=== PATIENT | male | born 1955 | race Caucasian/White ===

== ENCOUNTER 2017-04-17 02:37 | Emergency (ER) | payer OTHER, MEDICARE, SELFPAY ==
[2017-04-17 02:38] VITALS: BP 170/91; PULSE 75; RESP 16; TEMP 36.7; O2SAT 96; BMI 34.2
--- NOTE | 2017-04-17 03:04 | ED.VISSUMM ---
- ER Visit Summary Date of Service: 04/17/17 Chief Complaint: [] Acute on chronic back pain History of Present Illness: The patient is a 61 M [] complaining of acute on chronic back pain. Patient reports a history of sciatica for which she is seen at pain management and receives injections. He reports intermittent worsening pain over the last 2-3 weeks. Reports going to a local [employer] and was pushing around a heavy cart of supplies which aggravated his low back which now has pain radiating down to the left lower extremity. He reports taking Mobic and Percocet at home without significant relief. Denies bowel or bladder dysfunction or saddle anesthesia. Physical Examination: [] Mild tenderness palpation in the left lumbosacral paraspinal area. Patient able to ambulate with mild discomfort. Test Results: [] None. Emergency Department Course and Treatment: [] Patient provided 8 mg IM morphine for analgesia. He was encouraged to follow-up with his pain management physician. Treatment Plan: [] Follow up with pain management. Disposition: [] Discharge, stable. Impression: [] Acute on chronic back pain This note was generated with [employer] dictation software. It may contain incorrect words, spelling, and punctuation that were not noted in review of the chart prior to signing ED Disposition - Plan for ED Patient: Chief Complaint: Back Referrals: Dominick Cueto III, MD [Primary Care Provider] -
--- NOTE | 2017-04-17 03:06 | ED.DEP ---
ED Disposition - Plan for ED Patient: Disposition: Home or Assisted Living Chief Complaint: Back Instructions: ED Sciatica Referrals: Dominick Cueto III, MD [Primary Care Provider] -
== END 2017-04-17 03:27 | disposition home or self-care (01) ==
PROVIDERS: Emergency Provider Emergency Medicine; Family Provider Family Medicine; PCP Family Medicine
DX: M54.9 Dorsalgia, unspecified (principal); G89.29 Other chronic pain; I25.10 Atherosclerotic heart disease of native coronary artery without angina pectoris; Z95.1 Presence of aortocoronary bypass graft
CPT/HCPCS: 96372; 99282

== ENCOUNTER → 2017-05-06 16:13 | Outpatient (CLI) | payer OTHER, MEDICARE, SELFPAY ==
--- NOTE | 2017-05-06 16:44 | MRI_ITS ---
STUDY: MRI LUMBAR SPINE WITHOUT CONTRAST REASON FOR EXAM: Male, 61 years old. Back and bilateral leg pain. TECHNIQUE: Standardized fat and water weighted pulse sequences were obtained in the sagittal and axial planes. COMPARISON: Radiographs lumbar spine dated March 03, 2017. FINDINGS: T12-L1: There is moderate compression of the superior endplate of L1. Estimated amount compression is at least 60% of expected height of this vertebral body. This appears old. There is increased height of the disc at this level related to the compression fracture. No foramina are patent. There is no significant central acquired canal stenosis. Normal lumbar lordosis. There is no substantial scoliosis. Normal conus medullaris that terminates at the T12-L1 level. L1-2: There is mild annular disk bulge and osteophyte complex. There is mild degenerative arthropathy of the facet joints. Bilateral neuroforamina are narrowed without MR evidence for nerve impingement. There is no significant central canal stenosis. L2-3: There is an annular disc bulge and osteophyte complex. There is moderate degenerative arthropathy of facet joints. There is severe right-sided neural foraminal narrowing with apparent impingement of the right L2 nerve root at the neural foramen. Left neural foramen is patent. L3-4: There is an annular disc bulge and osteophyte complex. There is moderate degenerative arthropathy of facet joints. There is bilateral neural foraminal narrowing, left greater than right with potential impingement of the left L3 nerve root at the neural foramen. L4-5: There is an annular disc bulge with broad central disc protrusion. There are severe degenerative arthropathy of facet joints. There is moderate acquired canal stenosis. Bilateral neural foramina are bilaterally narrowed, left greater than right with potential impingement of the left L4 nerve root at the neural foramen. L5-S1: There is a mild disc bulge and osteophyte complex. There is moderate degenerative arthropathy of facet joints. Neural foramina are narrowed without evidence for nerve impingement. There is no significant central acquired canal stenosis. Normal visualized sacral ala. There are degenerative changes at the sacroiliac joints. Normal visualized paraspinous soft tissue structures. MRI/Spine Lumbar (Routine) IMPRESSION: 1. Moderate old compression fracture of L1. 2. Moderately severe multilevel degenerative disc disease and degenerative arthropathy lumbar spine with acquired canal stenosis, neural foraminal narrowing and potential nerve impingement, as described. 3. 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 Electronically Signed: Susy De León MD at 0:07 EST , Service support ,
== END ==
PROVIDERS: Family Provider Family Medicine; PCP Family Medicine; Visit Provider Anesthesiology Pain Medicine
DX: M54.9 Dorsalgia, unspecified (principal); M79.606 Pain in leg, unspecified
CPT/HCPCS: 72148

== ENCOUNTER → 2017-05-17 06:15 | Outpatient (CLI) | payer OTHER, MEDICARE, SELFPAY ==
[2017-05-17 08:29] LABS: Absolute Lymphocyte Count 2.91 X10^3/ul (0.83-4.51); Absolute Neutrophil Count 5.9 X10^3/uL (2.0-7.7); Basophil# 0.02 X10^3/uL; Basophil% 0.2 % (0-1); Eosinophil# 0.08 X10^3/uL; Eosinophils% 0.8 % (0-5); Hematocrit 40.3 % (40-54); Hemoglobin 13.4 g/dl (13.0-16.5); Lymphocyte # 2.91 X10^3/ul (4.0); Lymphocyte % 28.3 % (19-41); Mean Corp Hgb Conc 33.3 g/gl (32-36); Mean Corpuscular Hgb 33.5 pg (27.0-32.0); Mean Corpuscular Volume 100.8 fL (80-94); Mean Platelet Vol. 8.5 fl (6.2-12.0); Monocyte# 1.27 X10^3/uL; Monocyte% 12.4 % (0-10); Neutrophil # 5.94 X10^3/uL (2.7-7.7); Neutrophil % 57.7 % (47-70); Platelet Count 215 K/mm3 (150-450); RBC Distribution Width CV 14.3 % (11.6-14.6); RBC Distribution Width SD 52.3 fl (35.1-43.9); White Blood Count 10.3 K/mm3 (4.4-11.0)
[2017-05-17 08:30] LABS: POSITIVE COUNT NO; POSITIVE DIFFERENTIAL NO; POSITIVE MORPHOLOGY NO
[2017-05-17 09:02] LABS: ALB/GLOB Ratio 0.8 RATIO (0.9-2.4); AST(SGOT) 17 U/L (15-37); Alanine Aminotransfer ALT/SGPT 33 U/L (16-61); Albumin, Serum 3.2 g/dL (3.2-5.0); Alkaline Phosphatase 132 U/L (45-117); Anion Gap 7 (5-15); BUN 16 mg/dL (7-18); BUN/Creat Ratio 26.5 RATIO (10-20); Bilirubin, Direct 0.07 mg/dL (0.00-0.30); Calcium,Total 8.9 mg/dL (8.5-10.1); Chloride 105 mmol/L (98-107); Cholesterol 228 mg/dL (200); EST Glomerular Filtration Rate 145 mL/min (>60); Est Glom Filt Rate - Afr Amer 175 mL/min (>60); Globulin 3.9 g/dL (2.2-4.2); Glucose 97 mg/dL (74-106); High Density Lipoprotein 44 mg/dL; Potassium 4.2 mmol/L (3.5-5.1); Protein, Total 7.1 g/dL (6.4-8.2); Sodium Level 140 mmol/L (136-145); Triglycerides 223 mg/dL; Very Low Density Lipoprotein 45 mg/dL (5-40)
== END ==
PROVIDERS: Physician Assistant Medical; Family Provider Family Medicine; PCP Family Medicine; Visit Provider Internal Medicine Rheumatology
DX: M06.00 Rheumatoid arthritis without rheumatoid factor, unspecified site (principal); M25.511 Pain in right shoulder; M17.0 Bilateral primary osteoarthritis of knee; E78.5 Hyperlipidemia, unspecified; Q66.7 Congenital pes cavus; K21.0 Gastro-esophageal reflux disease with esophagitis; M47.892 Other spondylosis, cervical region; M47.897 Other spondylosis, lumbosacral region; I70.90 Unspecified atherosclerosis; F32.89 Other specified depressive episodes; Z79.899 Other long term (current) drug therapy
CPT/HCPCS: 36415; 80053; 80061; 82248; 85025

== ENCOUNTER 2017-07-20 09:00 | Outpatient (RCR) | payer OTHER, MEDICARE, SELFPAY ==
--- NOTE | 2017-07-05 08:46 | HP.PTEVAL_ITS ---
Patient's Visit Information JOSE MUJICA is a 62 year old M referred to Physical Therapy by [facility] with a diagnosis of Back and Leg pain. Date of Evaluation: 07/05/17 Physical Therapist: Olga Lidia Merida - Visit Plan Frequency: 2x /Week Duration: 4 Weeks Plan: 2X/ week for 4 weeks for AT for core stability, LE strengthening, gait training, functional mobility with HEP. (Pt will be having surgery July 23, 2017 ) - Subjective Subjective: Pt reports that he is having back pain. He is having surgery July 23 so he is not sure why the Dr sent him up here. He used to get injectins from [employer] and for awhile they have worked (8 years) and in the last year or so the injections have not been lasting as long and now not at all. He is trying to get out every day and do something to try and stay moving. He is in a lot of pain. He had an MRI and x-ray and the surgeon is going to fuse 2 vertebrea together (Dr. Cesar De León). He feels that he has leg weakness. He has been using a cane off and on the last 4-5 months. He has gone down without the can a few times due to pain. He can't sleep cause of the back pain ( maybe 4=5 hours a night). He has a stationary bike at home that he uses at home but doesnt get carried away with it. - Pain back pain Pain Intensity (Out of 10): 8 L Leg pain Pain Intensity (Out of 10): 8 - Objective Trunk AROM: flexion 75%, ext 25%, SB 50% B. Gait: decrease stance time on the L LE, WBOS. Able to heel and toe raise using UE support. LE MMT: hip flex R 4/5, L 4-/5, knee ext L 3-/5 and R 4/5, knee flex R 4/5 and L 3+/5, hip abd L 4-/5 and R 4/5, Bridge 50% normal ROM,. +SLR on the L, + SLUMP test on the L - Goals Goal 1:: I HEP/water rountine Goal Time Frame: 4-6 Weeks Goal 2:: Decrease back pain to 6/10 with ADL's Goal Time Frame: 4-6 Weeks Goal 3:: Sit with upright posture during treatment sessions Goal Time Frame: 4-6 Weeks - Rehabilitation Potential Rehabilitation Potential: Good - Anticipated Interventions Patient/Client Instruction: Educate patient on: Plan of Care For the Purpose of:: To decrease pain, To increase ROM, To improve nutrient delivery to tissue, To improve muscle performance and motor function, To improve ability to perform ADL's, To increase tolerance to activity/condition/ position Therapeutic Exercise to Include: Strength training, Postural training, Flexibilty training, Gait and locomotor training, In an aquatic setting, Active ROM, Dynamic Lumbar Stabilization, Scapular Strength/Stabilization For the Purpose of:: To decrease pain, To decrease swelling/inflammation, To increase ROM, To improve nutrient delivery to tissue, To improve muscle performance and motor function, To improve ability to perform ADL's, To increase tolerance to activity/condition/position, To improve performance and independence with ADL's Thank you for the opportunity to evaluate your patient. For Medicare and Medicare HMO plans, please review the plan of care and approve it. It will need to be FAXED BACK to us at [phone] for Medicare purposes. Please let me know if there are questions or concerns regarding this plan of care. Physician Signature: Date:
--- NOTE | 2017-07-21 15:34 | HP.PTDCNRP_ITS ---
HP - Discharge Summary (1) - Patient Information JOSE MUJICA was seen in my office for initial evaluation on 07/05/17. The following Plan of Care was established for this patient: Initial Frequency: 2x /Week Initial Duration: 4 Weeks - Anticipated Interventions Patient/Client Instruction: Educate patient on: Plan of Care For the Purpose of:: To decrease pain, To increase ROM, To improve nutrient delivery to tissue, To improve muscle performance and motor function, To improve ability to perform ADL's, To increase tolerance to activity/condition/ position Therapeutic Exercise to Include: Strength training, Postural training, Flexibilty training, Gait and locomotor training, In an aquatic setting, Active ROM, Dynamic Lumbar Stabilization, Scapular Strength/Stabilization For the Purpose of:: To decrease pain, To decrease swelling/inflammation, To increase ROM, To improve nutrient delivery to tissue, To improve muscle performance and motor function, To improve ability to perform ADL's, To increase tolerance to activity/condition/position, To improve performance and independence with ADL's This patient was last seen in our office . Pertinent comments regarding their Physical therapy will appear below: At this point I will be discontinuing this patient from physical therapy. I would be happy to see this patient again in the future if found appropriate by the physician. Thank you! Olga Lidia Merida
== END 2017-07-20 19:00 | disposition home or self-care (01) ==
LOC: PT 09:00
PROVIDERS: Family Provider Family Medicine; PCP Family Medicine; Visit Provider Anesthesiology Pain Medicine
DX: M54.9 Dorsalgia, unspecified (principal); M79.606 Pain in leg, unspecified
CPT/HCPCS: 97110; 97113

== ENCOUNTER → 2017-08-17 16:23 | Outpatient (CLI) | payer OTHER, MEDICARE, SELFPAY ==
[2017-08-17 17:15] LABS: Absolute Lymphocyte Count 4.52 X10^3/ul (0.83-4.51); Absolute Neutrophil Count 7.4 X10^3/uL (2.0-7.7); Basophil# 0.03 X10^3/uL; Basophil% 0.2 % (0-1); Eosinophil# 0.15 X10^3/uL; Eosinophils% 1.1 % (0-5); Hematocrit 37.7 % (40-54); Hemoglobin 12.6 g/dl (13.0-16.5); Lymphocyte # 4.52 X10^3/ul (4.0); Lymphocyte % 33.1 % (19-41); Mean Corp Hgb Conc 33.4 g/gl (32-36); Mean Corpuscular Hgb 34.1 pg (27.0-32.0); Mean Corpuscular Volume 102.2 fL (80-94); Mean Platelet Vol. 8.5 fl (6.2-12.0); Monocyte# 1.48 X10^3/uL; Monocyte% 10.8 % (0-10); Neutrophil # 7.39 X10^3/uL (2.7-7.7); Neutrophil % 54.2 % (47-70); Platelet Count 244 K/mm3 (150-450); RBC Distribution Width CV 13.8 % (11.6-14.6); RBC Distribution Width SD 50.2 fl (35.1-43.9); Red Blood Count 3.69 M/mm3 (4.6-6.2); White Blood Count 13.7 K/mm3 (4.4-11.0)
[2017-08-17 17:27] LABS: POSITIVE COUNT NO; POSITIVE DIFFERENTIAL NO; POSITIVE MORPHOLOGY NO
[2017-08-17 17:45] LABS: AST(SGOT) 21 U/L (15-37); Alanine Aminotransfer ALT/SGPT 37 U/L (16-61); Albumin, Serum 3.6 g/dL (3.2-5.0); Alkaline Phosphatase 150 U/L (45-117); Anion Gap 11 (5-15); BUN 13 mg/dL (7-18); BUN/Creat Ratio 13.5 RATIO (10-20); Calcium,Total 9.3 mg/dL (8.5-10.1); Chloride 105 mmol/L (98-107); Creatinine, Serum 0.96 mg/dL (0.70-1.30); EST Glomerular Filtration Rate 85 mL/min (>60); Est Glom Filt Rate - Afr Amer 102 mL/min (>60); Globulin 3.6 g/dL (2.2-4.2); Glucose 116 mg/dL (74-106); Potassium 3.4 mmol/L (3.5-5.1); Protein, Total 7.2 g/dL (6.4-8.2); Sodium Level 143 mmol/L (136-145)
== END ==
PROVIDERS: Family Provider Family Medicine; PCP Family Medicine; Visit Provider Internal Medicine Rheumatology
DX: M06.00 Rheumatoid arthritis without rheumatoid factor, unspecified site (principal); M25.511 Pain in right shoulder; M17.0 Bilateral primary osteoarthritis of knee; Q66.7 Congenital pes cavus; K21.0 Gastro-esophageal reflux disease with esophagitis; E78.5 Hyperlipidemia, unspecified; F32.89 Other specified depressive episodes; I70.90 Unspecified atherosclerosis; M47.897 Other spondylosis, lumbosacral region; M47.892 Other spondylosis, cervical region; Z79.899 Other long term (current) drug therapy
CPT/HCPCS: 36415; 80053; 85025

== ENCOUNTER → 2017-12-01 16:36 | Outpatient (CLI) | payer OTHER, MEDICARE, SELFPAY ==
--- OUTSIDE RECORDS SUMMARY | 2017-11-19 16:53 | XMS RPT_ITS ---
:1955 Author Organization [facility] Address [address] [place] [address] Phone Care Team Providers Name Role Phone Tavia OLMEDO, Anya Unavailable Reason for Visit Reason For Visit Description Start Date Postop - subsequent visit Preliminary reason for visit data, not yet signed by the author as of lower back post Posterolateral fusion L4-5 on 07/23/2017 Preliminary reason for visit data, not yet signed by the author as of Chief Complaint Chief Complaint Description Start Date lower back post Posterolateral fusion L4-5 on 07/23/2017 Preliminary chief complaint data, not yet signed by the author as of Instructions Instruction Description Start Date CompletedPatient advised to follow-up with Primary Care Physician for BMI management. Plan of Care Type Date Detail Appointment 09:00 AM Anya OLMEDO, [address] [facility], [facility], [place], [address], Pending order XR LUMBAR 2-3 VWS AP/LAT Medications Medication Instructions Start Stop Generic Name NDC Provider Date Date ADVIL 200 MG take 1 to 2 / IBUPROFEN 91219973061 Anya TABS tablets every 6 30 [place] hours as needed HONORIO AMITRIPTYLINE 1 tablet daily / AMITRIPTYLINE [id number] Anya HCL 25 MG TABS 31 HCL [place] FABIO-KELSIE ONDANSETRON HCL 1 tablet every / ONDANSETRON HCL 06442446786 Anya TABS 6 hours 31 TABS [place] HONORIO LEFLUNOMIDE 10 1 tablet daily / LEFLUNOMIDE 20752172113 Anya MG TABS 31 [place] [employer] FLUOXETINE HCL 1 tablet daily / FLUOXETINE HCL 02993281412 Anya 40 MG CAPS 31 [place] [employer] FOOTBALLER[facility] ROSUVASTATIN 1 tablet daily / ROSUVASTATIN 99817200727 Anya CALCIUM 10 MG 31 CALCIUM [place] TABS [employer]OT[employer] HUMIRA PEN 40 bi-weekly / ADALIMUMAB 69713646472 Scot D MG/0.8ML PNKT 20 De León DO XTAMPZA ER 27 MG two tablets / OXYCODONE 52408345047 Scot D C12A daily for pain 20 De León DO PREDNISONE 10 MG one tablet as / PREDNISONE 56898968136 Scot D TABS needed for pain 20 De León DO ARAVA 10 MG TABS one tablet / LEFLUNOMIDE [id number] Scot D daily 20 De León DO BUSPIRONE HCL 5 one tabled as / BUSPIRONE HCL 39130810439 Scot D MG TABS needed 20 De León DO LISINOPRIL 5 MG one tablet once / LISINOPRIL [id number] Scot D TABS a day 08 De León DO PLAVIX 75 MG once daily / CLOPIDOGREL 96979748734 Anya TABS 08 BISULFATE [place] [facility] NITROSTAT 0.4 MG takes as / NITROGLYCERIN 77445853400 Rosanna Quintero SUBL directed as 08 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 CARVEDILOL 6.25 takes 1 tablet / CARVEDILOL 44539500852 Rosanna Quintero MG TABS twice a day 08 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 MELOXICAM 15 MG takes 1 tablet / MELOXICAM [id number] Rosanna Quintero TABS once a day 08 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 OMEPRAZOLE 40 MG takes 1 capsule / OMEPRAZOLE 57335959679 Rosanna Quintero CPDR once a day 08 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 RANEXA 1000 MG takes 2 tablets / RANOLAZINE [id number] Rosanna Quintero [id number] once a day 08 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 Conditions or Problems Problem Name Problem Onset Status Entry Provider Comment Standard Annotate Code Date Date Description S/P lumbar 26864044020 Active Anya History of fusion 106 (SNOMED 08/05 08/[address]) [employer]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 Spondylolist 18937650058 Active Scot D 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 Vital Signs Date Name Value Unit Description BMI (Body Mass 33.88 kg/m2 Body Mass Index Index) [Ratio] Preliminary vital sign data, not yet signed by the author as of BP Diastolic 88 mm[Hg] blood pressure, diastolic Preliminary vital sign data, not yet signed by the author as of BP Systolic 127 mm[Hg] blood pressure, systolic Preliminary vital sign data, not yet signed by the author as of Heart Rate 74 /min pulse rate E&M Preliminary vital sign data, not yet signed by the author as of Height 68 [in_us] height E&M Preliminary vital sign data, not yet signed by the author as of Height 173 cm height in centimeters E&M Preliminary vital sign data, not yet signed by the author as of Weight Measured 222 [lb_av] weight E&M Preliminary vital sign data, not yet signed by the author as of Weight Measured 101 kg weight in kilograms E&M Preliminary vital sign data, not yet signed by the author as of Results Date Name Value Unit Range Flag Description Office Visit: Postop - subsequent visit, Rm: 32 MEDS REVIEW Done Documentation of current medications (procedure) Preliminary observation data, not yet signed by the author as of Preliminary observation data, not yet signed by the author as of Clinical Summary: HMSPatientID OOP account number Procedures Code Procedure Name Date Entry Date G8730 Pain assessment documented as positive - follow-up documented G8427 Current medications documented 1036F Tobacco screening was negative - non user G8417 BMI documented as above normal parameters - follow-up documented G8783 Blood pressure within normal parameters - no follow-up required [facility]-[id number] Patient Encounter Medications Administered No information available. Immunizations No information available. Advance Directives There may be information available, but it has not been provided by the sender. Assessments There may be information available, but it has not been provided by the sender. Review of Systems There may be information available, but it has not been provided by the sender. Family History There may be information available, but it has not been provided by the sender. History of Past Illness There may be information available, but it has not been provided by the sender. History of Present Illness There may be information available, but it has not been provided by the sender.
[2017-12-01 17:30] LABS: AST(SGOT) 23 U/L (15-37); Alanine Aminotransfer ALT/SGPT 43 U/L (16-61); Albumin, Serum 3.7 g/dL (3.2-5.0); Alkaline Phosphatase 149 U/L (45-117); Anion Gap 10 (5-15); BUN 19 mg/dL (7-18); BUN/Creat Ratio 21.1 RATIO (10-20); Calcium,Total 9.5 mg/dL (8.5-10.1); Chloride 103 mmol/L (98-107); EST Glomerular Filtration Rate 91 mL/min (>60); Est Glom Filt Rate - Afr Amer 111 mL/min (>60); Globulin 3.6 g/dL (2.2-4.2); Glucose 131 mg/dL (74-106); Potassium 3.9 mmol/L (3.5-5.1); Protein, Total 7.3 g/dL (6.4-8.2); Sodium Level 140 mmol/L (136-145)
[2017-12-01 17:40] LABS: Absolute Neutrophil Count 5.6 X10^3/uL (2.0-7.7); Basophil# 0.02 X10^3/uL; Basophil% 0.2 % (0-1); Eosinophil# 0.09 X10^3/uL; Eosinophils% 0.8 % (0-5); Hematocrit 43.1 % (40-54); Hemoglobin 14.6 g/dl (13.0-16.5); Lymphocyte % 37.4 % (19-41); Mean Corp Hgb Conc 33.9 g/gl (32-36); Mean Corpuscular Hgb 32.9 pg (27.0-32.0); Mean Corpuscular Volume 97.1 fL (80-94); Mean Platelet Vol. 8.6 fl (6.2-12.0); Monocyte# 1.29 X10^3/uL; Monocyte% 11.5 % (0-10); Neutrophil # 5.57 X10^3/uL (2.7-7.7); Neutrophil % 49.5 % (47-70); Platelet Count 225 K/mm3 (150-450); RBC Distribution Width CV 14.7 % (11.6-14.6); RBC Distribution Width SD 51.3 fl (35.1-43.9); Red Blood Count 4.44 M/mm3 (4.6-6.2); White Blood Count 11.2 K/mm3 (4.4-11.0)
[2017-12-01 18:05] LABS: POSITIVE COUNT NO; POSITIVE DIFFERENTIAL NO; POSITIVE MORPHOLOGY NO
== END ==
PROVIDERS: Family Provider Family Medicine; PCP Family Medicine; Visit Provider Internal Medicine Rheumatology
DX: M06.00 Rheumatoid arthritis without rheumatoid factor, unspecified site (principal); M25.511 Pain in right shoulder; M17.0 Bilateral primary osteoarthritis of knee; Z79.899 Other long term (current) drug therapy
CPT/HCPCS: 36415; 80053; 85025

== ENCOUNTER → 2018-01-13 06:20 | Outpatient (CLI) | payer OTHER, MEDICARE, SELFPAY ==
--- NOTE | 2018-01-13 06:35 | MRI_ITS ---
STUDY: MRI CERVICAL SPINE WITHOUT CONTRAST REASON FOR EXAM: Male, 62 years old. Stenosis. Posterior neck pain radiating to the shoulders. TECHNIQUE: Standardized fat and water weighted pulse sequences were obtained in the sagittal and axial planes. COMPARISON: None FINDINGS: Normal foramen magnum and brainstem-cervical cord junction. Normal craniovertebral junction. Normal anterior atlantoaxial articulation. Normal odontoid process. Normal cervical lordosis. Normal vertebral bodies and posterior osseous elements. C2-3: Normal endplates. Normal disc height, signal and morphology. Normal central canal and intervertebral neural foramina. C3-4: Normal endplates. Normal disc height, signal and morphology. Normal central canal. There is mild right foraminal encroachment due to uncinate and mild facet hypertrophy. C4-5: Normal endplates. Normal disc height, signal and morphology. Normal central canal. There is mild foraminal encroachment due to mild facet hypertrophy. C5-6: Normal endplates. Normal disc height, signal and morphology. Normal central canal. Severe bilateral foraminal stenosis due to uncinate and facet hypertrophy. C6-7: Normal endplates. Normal disc height, signal and morphology. Normal central canal. Mild foraminal encroachment due to uncinate hypertrophy. C7-T1: Normal endplates. Normal disc height, signal and morphology. Normal central canal and intervertebral neural foramina. Normal cervical cord. Normal visualized soft tissue structures. MRI/Spine Cervical (Routine) IMPRESSION: 1. No evidence of disc protrusion or canal stenosis. 2. Multilevel foraminal encroachment, greatest at C5-6. Electronically Signed: Hattie Kemp MD at 23:52 EST Tel , Service support ,
--- NOTE | 2018-01-13 06:35 | MRI_ITS ---
STUDY: MRI LEFT SHOULDER REASON FOR EXAM: Male, 62 years old. Impingement. Limited range of motion. Weakness. TECHNIQUE: Standardized fat and water weighted pulse sequences were obtained in all 3 orthogonal planes. COMPARISON: X-ray April 23, 2015 FINDINGS: Full thickness tear of the distal supraspinatus tendon with retraction of 3.2 cm, series 5 images 08/27 through 12/27. Full thickness tear of the distal infraspinatus tendon with retraction of 2.1 cm, series 5 images of 01/27 through . There is decreased subacromial space. There is subscapularis tendinosis with tendon thickening, but without a demonstrated tendon tear. Normal teres minor tendon. There is severe muscular atrophy of the supraspinatus muscle. There is severe muscular atrophy of the infraspinatus muscle. Normal subscapularis muscle. Normal teres minor muscle. There is a small volume joint effusion of the glenohumeral joint. Normal humeral head and visualized proximal humerus. There is tearing at the biceps anchor with subluxation from the bicipital groove. Normal labrum. Normal capsulo- ligamentous complex. Normal rotator interval. 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 There is a Type II morphology (curved), with a neutral orientation. There is mild fluid distention of the subacromial bursa, consistent with mild subacromial-subdeltoid bursitis. Normal visualized coracohumeral and coracoacromial ligaments. Normal quadrilateral space. Normal axillary space. Normal deltoid muscle. Normal trapezius muscle. MRI/Upper Ext Joint Only(Routine) IMPRESSION: Chronic full-thickness rotator cuff tear of the supraspinatus and infraspinatus tendons. Tear at the biceps anchor with subluxation of the long head of the biceps. Electronically Signed: Mickey Terry MD at 13:48 EST , Service support ,
[2018-01-13 07:49] LABS: AST(SGOT) 27 U/L (15-37); Alanine Aminotransfer ALT/SGPT 38 U/L (16-61); Albumin, Serum 3.3 g/dL (3.2-5.0); Alkaline Phosphatase 135 U/L (45-117); Bilirubin, Direct 0.12 mg/dL (0.00-0.30); Cholesterol 151 mg/dL (200); Globulin 3.5 g/dL (2.2-4.2); High Density Lipoprotein 34 mg/dL; Protein, Total 6.8 g/dL (6.4-8.2); Triglycerides 292 mg/dL; Very Low Density Lipoprotein 58 mg/dL (5-40)
[2018-01-13 07:53] LABS: Amphetamine Urine VISTA NEGATIVE (<1000 ng/mL); Barbiturate Urine VISTA NEGATIVE (< 200 ng/mL); Benzodiazepine Urine VISTA NEGATIVE (< 200 ng/mL); Cocaine Urine VISTA NEGATIVE (< 300 ng/mL); Ecstacy Urine VISTA NEGATIVE (< 500 ng/mL); Methadone Urine VISTA NEGATIVE (< 300 ng/mL); PCP Urine VISTA NEGATIVE (< 25 ng/mL); THC Urine VISTA NEGATIVE (< 50 ng/mL); Vista UDS pH Range 5
== END ==
PROVIDERS: Anesthesiology Pain Medicine; Family Provider Family Medicine; PCP Family Medicine; Referring Provider Nurse Practitioner Acute Care; Visit Provider Nurse Practitioner Acute Care
DX: M48.02 Spinal stenosis, cervical region (principal); M75.42 Impingement syndrome of left shoulder; F11.20 Opioid dependence, uncomplicated; I25.10 Atherosclerotic heart disease of native coronary artery without angina pectoris; E78.5 Hyperlipidemia, unspecified
CPT/HCPCS: 36415; 72141; 73221; 80061; 80076; 80307

== ENCOUNTER → 2018-02-07 06:43 | Outpatient (CLI) | payer OTHER, MEDICARE, SELFPAY ==
[2018-02-03 09:21] VITALS: BMI 35.9
[2018-02-07 08:22] LABS: Anion Gap 10 (5-15); BUN 13 mg/dL (7-18); BUN/Creat Ratio 17.2 RATIO (10-20); Calcium,Total 8.7 mg/dL (8.5-10.1); Chloride 106 mmol/L (98-107); Creatinine, Serum 0.76 mg/dL (0.70-1.30); EST Glomerular Filtration Rate 112 mL/min (>60); Est Glom Filt Rate - Afr Amer 135 mL/min (>60); Glucose 247 mg/dL (74-106); Potassium 3.9 mmol/L (3.5-5.1); Sodium Level 141 mmol/L (136-145)
[2018-02-07 08:23] LABS: Absolute Lymphocyte Count 2.95 X10^3/ul (0.83-4.51); Absolute Neutrophil Count 2.6 X10^3/uL (2.0-7.7); Basophil# 0.03 X10^3/uL; Basophil% 0.4 % (0-1); Eosinophil# 0.12 X10^3/uL; Eosinophils% 1.8 % (0-5); Hematocrit 41.6 % (40-54); Hemoglobin 14.3 g/dl (13.0-16.5); Lymphocyte # 2.95 X10^3/ul (4.0); Lymphocyte % 43.4 % (19-41); Mean Corp Hgb Conc 34.4 g/gl (32-36); Mean Corpuscular Hgb 34.1 pg (27.0-32.0); Mean Corpuscular Volume 99.3 fL (80-94); Mean Platelet Vol. 9.1 fl (6.2-12.0); Monocyte# 1.11 X10^3/uL; Monocyte% 16.3 % (0-10); Neutrophil # 2.57 X10^3/uL (2.7-7.7); Neutrophil % 37.8 % (47-70); Platelet Count 215 K/mm3 (150-450); RBC Distribution Width CV 14.5 % (11.6-14.6); RBC Distribution Width SD 52.1 fl (35.1-43.9); Red Blood Count 4.19 M/mm3 (4.6-6.2); White Blood Count 6.8 K/mm3 (4.4-11.0)
[2018-02-07 08:24] LABS: POSITIVE COUNT NO; POSITIVE DIFFERENTIAL NO; POSITIVE MORPHOLOGY NO
[2018-02-07 11:24] LABS: Vitamin D,25 Hydroxy 29.6 ng/mL (29.95-100.01)
--- OUTSIDE RECORDS SUMMARY | 2018-04-02 04:46 | XMS RPT_ITS ---
:1955 Author Organization [employer] Address [address] [place] [address] Phone Care Team Providers Name Role Phone Sarthak MONTAÑO Po Nails Unavailable Reason for Visit Reason For Visit Description Start Date New/Est - 1st visit with physician Preliminary reason for visit data, not yet signed by the author as of lower back pain Preliminary reason for visit data, not yet signed by the author as of Chief Complaint Chief Complaint Description Start Date lower back pain Preliminary chief complaint data, not yet signed by the author as of Instructions Instruction Description Start Date CompletedPatient advised to follow-up with Primary Care Physician for BMI management. Plan of Care Type Date Detail Appointment 10:00 AM Po Nails De León , [address] [place], [address], Appointment 09:20 AM Anya Squires APRN-EARLY BREASTFEEDING CARE SPECIALIST, [address], [address], Medications Medication Instructions Start Stop Generic Name [facility] Provider Date Date HUMIRA PEN 40 bi-weekly / ADALIMUMAB [id number] Scot D MG/0.8ML PNKT 20 De León DO XTAMPZA ER 27 two tablets / OXYCODONE 10767764808 Scot D MG C12A daily for pain 20 De León DO PREDNISONE 10 one tablet as / PREDNISONE 21593278316 Scot D MG TABS needed for pain 20 De León DO ARAVA 10 MG one tablet / LEFLUNOMIDE 35413103657 Scot D TABS daily 20 De León DO BUSPIRONE HCL one tabled as / BUSPIRONE HCL 06372813694 Scot D 5 MG TABS needed 20 De León DO LISINOPRIL 5 one tablet once / LISINOPRIL 89385103082 Scot D MG TABS a day 08 De León DO PLAVIX 75 MG once daily / CLOPIDOGREL 04160565323 Anya TABS 08 BISULFATE [place] BASE REMOVER-EARLY BREASTFEEDING CARE SPECIALIST NITROSTAT 0.4 takes as / NITROGLYCERIN 78709042810 Rosanna Quintero MG SUBL directed as 08 HOSPITAL FELLOW needed CARVEDILOL takes 1 tablet / CARVEDILOL 14965666323 Rosanna Quintero 6.25 MG TABS twice a day 08 HOSPITAL FELLOW MELOXICAM 15 takes 1 tablet / MELOXICAM 25332860224 Rosanna Quintero MG TABS once a day 08 HOSPITAL FELLOW OMEPRAZOLE 40 takes 1 capsule / OMEPRAZOLE 83306414816 Rosanna Quintero MG CPDR once a day 08 HOSPITAL FELLOW RANEXA 1000 takes 2 tablets / RANOLAZINE 39491104777 Rosanna Quintero MG [id number] once a day 08 HOSPITAL FELLOW Conditions or Problems Problem Name Problem Onset Status Entry Provider Comment Standard Annotate Code Date Date Description 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 Vital Signs Date Name Value Unit Description BMI (Body Mass 34.33 kg/m2 Body Mass Index Index) [Ratio] Preliminary vital sign data, not yet signed by the author as of BP Diastolic 70 mm[Hg] blood pressure, diastolic Preliminary vital sign data, not yet signed by the author as of BP Systolic 108 mm[Hg] blood pressure, systolic Preliminary vital sign data, not yet signed by the author as of Heart Rate 80 /min pulse rate E&M Preliminary vital sign data, not yet signed by the author as of Height 68 [in_us] height E&M Preliminary vital sign data, not yet signed by the author as of Height 173 cm height in centimeters E&M Preliminary vital sign data, not yet signed by the author as of Weight Measured 225 [lb_av] weight E&M Preliminary vital sign data, not yet signed by the author as of Weight Measured 102 kg weight in kilograms E&M Preliminary vital sign data, not yet signed by the author as of Results Date Name Value Unit Range Flag Description Office Visit: New/Est - 1st visit with physician, Rm: 1 MEDS REVIEW Done Documentation of current medications (procedure) Preliminary observation data, not yet signed by the author as of Preliminary observation data, not yet signed by the author as of MRI HX of the back on MRI (magnetic 05/06/2017 at [facility]) history Health Preliminary observation data, not yet signed by the author as of Clinical Summary: HMSPatientID OOP account number Procedures Code Procedure Name Date Entry Date L0648 EXOS FORM 631 (EXOS) CPT-65074 XR LUMBAR 4VWS FLEX/EX G8730 Pain assessment documented as positive - follow-up documented G8427 Current medications documented 1036F Tobacco screening was negative - non user G8417 BMI documented as above normal parameters - follow-up documented G8783 Blood pressure within normal parameters - no follow-up required 5015F Fracture management ongoing care communicated [facility]-[id number] Patient Encounter Medications Administered No information available. [...]
--- OUTSIDE RECORDS SUMMARY | 2018-04-02 04:46 | XMS RPT_ITS ---
:1955 Author Organization [employer] Address [facility] [place] [address] Phone Care Team Providers Name Role Phone Zeynep WILD, Leigh Shirley Reason for Visit Reason For Visit Description Start Date Postop - 1st visit Preliminary reason for visit data, not yet signed by the author as of left shoulder post Left reverse total shoulder using Equinoxe press-fit 6 mm Preserve stem, a 0 humeral tray, a 42/+0 humeral cup and a 42 mm glenosphere and a standard glenoid baseplate. Subscapularis repair. on 02/09/2018 Preliminary reason for visit data, not yet signed by the author as of Chief Complaint Chief Complaint Description Start Date left shoulder post Left reverse total shoulder using Equinoxe press-fit 6 mm Preserve stem, a 0 humeral tray, a 42/+0 humeral cup and a 42 mm glenosphere and a standard glenoid baseplate. Subscapularis repair. on 02/09/2018 Preliminary chief complaint data, not yet signed by the author as of Instructions Instruction Description Start Date Completed Plan of Care Type Date Detail Appointment 10:30 AM Leigh Adhikari PA-C, [address] [facility] [address], [place], [address], Appointment 08:40 AM Po De León DO, [address] [facility] [address], [place], [address], Appointment 08:15 AM Ranjit Lemus MD, [facility], [address], [place], [address], Pending order XR SHOULDER 2 VWS-LT Medications Medication Instructions Start Stop Generic Name NDC Provider Date Date PERCOCET 7.5-325 Take 1-2 / OXYCODONE-ACETA 55857213384 Leigh MG TABS tablets by 12 MINOPHEN Kilbane mouth every 4 PA-C hours as needed for pain PERCOCET 10-325 Take 1-2 / OXYCODONE-ACETA 77018153834 Leigh MG TABS tablets by 04 MINOPHEN Kilbane mouth every 4 PA-C hours as needed for pain ADVIL 200 MG take 1 to 2 / IBUPROFEN 73696598043 Anya TABS tablets every 6 30 [place] hours as needed BOOKKEEPERS SUPERVISOR-LOUVER MORTISER OPERATOR AMITRIPTYLINE 1 tablet daily / AMITRIPTYLINE 21337761933 Anya HCL 25 MG TABS 31 HCL [place] BOOKKEEPERS SUPERVISOR-LOUVER MORTISER OPERATOR ONDANSETRON HCL 1 tablet every / ONDANSETRON HCL 53262782068 Anya TABS 6 hours 31 TABS [place] BOOKKEEPERS SUPERVISOR-LOUVER MORTISER OPERATOR LEFLUNOMIDE 10 1 tablet daily / LEFLUNOMIDE 54090683243 Anya MG TABS 31 [place] BOOKKEEPERS SUPERVISOR-LOUVER MORTISER OPERATOR FLUOXETINE HCL 1 tablet daily / FLUOXETINE HCL 73629524587 Anya 40 MG CAPS 31 [place] BOOKKEEPERS SUPERVISOR-LOUVER MORTISER OPERATOR ROSUVASTATIN 1 tablet daily / ROSUVASTATIN 19932103977 Anya CALCIUM 10 MG 31 CALCIUM [place] TABS BOOKKEEPERS SUPERVISOR-LOUVER MORTISER OPERATOR HUMIRA PEN 40 bi-weekly / ADALIMUMAB 38079857761 Scot D MG/0.8ML PNKT 20 De León DO XTAMPZA ER 27 MG two tablets / OXYCODONE 77550100683 Scot D C12A daily for pain 20 De León DO PREDNISONE 10 MG one tablet as / PREDNISONE 36721347998 Scot D TABS needed for pain 20 De León DO ARAVA 10 MG TABS one tablet / LEFLUNOMIDE 41595108861 Scot D daily 20 De León DO BUSPIRONE HCL 5 one tabled as / BUSPIRONE HCL 11365935205 Scot D MG TABS needed 20 De León DO LISINOPRIL 5 MG one tablet once / LISINOPRIL 07400932467 Scot D TABS a day 08 De León DO PLAVIX 75 MG once daily / CLOPIDOGREL 12797033323 Anya TABS 08 BISULFATE [place] BOOKKEEPERS SUPERVISOR-LOUVER MORTISER OPERATOR NITROSTAT 0.4 MG takes as / NITROGLYCERIN 04237003577 Rosanna Quintero SUBL directed as 08 MOTOR ROOM CONTROLLER needed CARVEDILOL 6.25 takes 1 tablet / CARVEDILOL 53647876290 Rosanna Quintero MG TABS twice a day 08 MOTOR ROOM CONTROLLER MELOXICAM 15 MG takes 1 tablet / MELOXICAM 08166216928 Rosanna Quintero TABS once a day 08 MOTOR ROOM CONTROLLER OMEPRAZOLE 40 MG takes 1 capsule / OMEPRAZOLE 48751896208 Rosanna Quintero CPDR once a day 08 MOTOR ROOM CONTROLLER RANEXA 1000 MG takes 2 tablets / RANOLAZINE 96844535220 Rosanna Quintero [id number] once a day 08 MOTOR ROOM CONTROLLER Conditions or Problems Problem Name Problem Onset Status Entry Provider Comment Standard Annotate Code Date Date Description Status post Z96.612 Active Leigh 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 Kilbane left artificial arthroplasty PA-C shoulder joint of left shoulder Complete 668190403 Active Leigh Full thickness rotator cuff (SNOMED CT) 04/04 04/04 Kilbane rotator cuff tear or PA-C tear rupture of left shoulder, not specified as traumatic Impingement 459076716 Active Anya Impingement syndrome, (SNOMED CT) 03/08 03/08 [place] syndrome of shoulder, BOOKKEEPERS SUPERVISOR-LOUVER MORTISER OPERATOR shoulder region left Cervical 90491975 Active Anya Spinal stenosis stenosis of (SNOMED CT) 03/08 03/08 [place] in cervical spinal canal BOOKKEEPERS SUPERVISOR-LOUVER MORTISER OPERATOR region S/P lumbar 28351419129 Active Anya History of fusion 106 (SNOMED 08/05 08/[address]) BOOKKEEPERS SUPERVISOR-LOUVER MORTISER OPERATOR 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 Vital Signs Date Name Value Unit Description BMI (Body Mass 35.10 kg/m2 Body Mass Index Index) [Ratio] Preliminary vital sign data, not yet signed by the author as of BP Diastolic 89 mm[Hg] blood pressure, diastolic Preliminary vital sign data, not yet signed by the author as of BP Systolic 133 mm[Hg] blood pressure, systolic Preliminary vital sign data, not yet signed by the author as of Heart Rate 86 /min pulse rate E&M Preliminary vital sign data, not yet signed by the author as of Height 68 [in_us] height E&M Preliminary vital sign data, not yet signed by the author as of Height 173 cm height in centimeters E&M Preliminary vital sign data, not yet signed by the author as of Weight Measured 230 [lb_av] weight E&M Preliminary vital sign data, not yet signed by the author as of Weight Measured 105 kg weight in kilograms E&M Preliminary vital sign data, not yet signed by the author as of Results Date Name Value Unit Range Flag Description Office Visit: Postop - 1st visit, Rm: 35 MEDS REVIEW Done Documentation of current medications (procedure) Preliminary observation data, not yet signed by the author as of Preliminary observation data, not yet signed by the author as of Clinical Summary: HMSPatientID OOP account number Procedures Code Procedure Name Date Entry Date CPT-04484 Physical Therapy G8730 Pain assessment documented as positive - follow-up documented G8427 Current medications documented 1036F Tobacco screening was negative - non user G8419 BMI outside of normal parameters - no follow-up plan/reason not given G8783 Blood pressure within normal parameters - no follow-up required [facility]-[id number] Patient Encounter Medications Administered No information available. [...]
--- OUTSIDE RECORDS SUMMARY | 2018-04-02 04:46 | XMS RPT_ITS ---
:1955 Author Organization [employer] Address [address] [place], [place] [address], [place] [address] Phone Care Team Providers Name Role Phone Zeynep WILD, Leigh Shirley Reason for Visit Reason For Visit Description Start Date New/Est - 1st visit with physician Preliminary reason for visit data, not yet signed by the author as of left shoulder pain Preliminary reason for visit data, not yet signed by the author as of Chief Complaint Chief Complaint Description Start Date left shoulder pain Preliminary chief complaint data, not yet signed by the author as of Instructions Instruction Description Start Date CompletedPatient advised to follow-up with Primary Care Physician for BMI management. Plan of Care Type Date Detail Appointment 02:00 PM Leigh Adhikari PA-C, [address] [place] [address], [address], [place], [address], Appointment 10:30 AM Ranjit Lemus MD, [address] [facility], [place], [address], Appointment 08:40 AM Po De León DO, [address] [facility], [address], [place], [address], Appointment 10:30 AM Leigh Adhikari PA-C, [address] [place] [address], [address], [place], [address], Pending order XR SHOULDER 1 VW-LT Pending order Basic metabolic panel (BMP) Pending order CBC with Differential Pending order 25-hydroxyvitamin D Patient education \cps-[email or web address]\[email or web address]\CDC_F ALL_[email or web address].pdf Medications Medication Instructions Start Stop Generic Name NDC Provider Date Date PERCOCET 7.5-325 1 tablet every / OXYCODONE-ACETA 49840509682 Anya MG TABS 8 hours as 01 MINOPHEN [place] needed FRENCH INSTRUCTOR-PLUMBING TECHNICIAN ADVIL 200 MG take 1 to 2 / IBUPROFEN 08522750215 Anya TABS tablets every 6 30 [place] hours as needed FRENCH INSTRUCTOR-PLUMBING TECHNICIAN AMITRIPTYLINE 1 tablet daily / AMITRIPTYLINE 45507735770 Anya HCL 25 MG TABS 31 HCL [place] FRENCH INSTRUCTOR-PLUMBING TECHNICIAN ONDANSETRON HCL 1 tablet every / ONDANSETRON HCL 62861737171 Anya TABS 6 hours 31 TABS [place] FRENCH INSTRUCTOR-PLUMBING TECHNICIAN LEFLUNOMIDE 10 1 tablet daily / LEFLUNOMIDE 22005755639 Anya MG TABS 31 [place] FRENCH INSTRUCTOR-PLUMBING TECHNICIAN FLUOXETINE HCL 1 tablet daily / FLUOXETINE HCL 50975019562 Anya 40 MG CAPS 31 [place] FRENCH INSTRUCTOR-PLUMBING TECHNICIAN ROSUVASTATIN 1 tablet daily / ROSUVASTATIN 95612187506 Anya CALCIUM 10 MG 31 CALCIUM [place] TABS FRENCH INSTRUCTOR-PLUMBING TECHNICIAN HUMIRA PEN 40 bi-weekly / ADALIMUMAB 21718547990 Scot D MG/0.8ML PNKT 20 De León DO XTAMPZA ER 27 MG two tablets / OXYCODONE 85016134939 Scot D C12A daily for pain 20 De León DO PREDNISONE 10 MG one tablet as / PREDNISONE 45724093251 Scot D TABS needed for pain 20 De León DO ARAVA 10 MG TABS one tablet / LEFLUNOMIDE 19183366636 Scot D daily 20 De León DO BUSPIRONE HCL 5 one tabled as / BUSPIRONE HCL 41333639416 Scot D MG TABS needed 20 De León DO LISINOPRIL 5 MG one tablet once / LISINOPRIL 20862320278 Scot D TABS a day 08 De León DO PLAVIX 75 MG once daily 2016/09/ CLOPIDOGREL 33825897676 Anya TABS 08 BISULFATE [place] FRENCH INSTRUCTOR-PLUMBING TECHNICIAN NITROSTAT 0.4 MG takes as / NITROGLYCERIN 91628625260 Rosanna Quintero SUBL directed as 08 MATCHER OPERATOR needed CARVEDILOL 6.25 takes 1 tablet / CARVEDILOL 83884110694 Rosanna Quintero MG TABS twice a day 08 MATCHER OPERATOR MELOXICAM 15 MG takes 1 tablet / MELOXICAM 18710877569 Rosanna Quintero TABS once a day 08 MATCHER OPERATOR OMEPRAZOLE 40 MG takes 1 capsule / OMEPRAZOLE 31852108131 Rosanna Quintero CPDR once a day 08 MATCHER OPERATOR RANEXA 1000 MG takes 2 tablets / RANOLAZINE 90294057652 Rosanna Quintero [id number] once a day 08 MATCHER OPERATOR Conditions or Problems Problem Name Problem Onset Status Entry Provider Comment Standard Annotate Code Date Date Description Complete 366546895 Active Leigh Full thickness rotator cuff (SNOMED CT) 04/04 04/04 Zeynep rotator cuff tear or PA-C tear rupture of left shoulder, not specified as traumatic Impingement 756824245 Active Anya Impingement syndrome, (SNOMED CT) 03/08 03/08 [place] syndrome of shoulder, FRENCH INSTRUCTOR-PLUMBING TECHNICIAN shoulder region left Cervical 85910498 Active Anya Spinal stenosis stenosis of (SNOMED CT) 03/08 03/08 [place] in cervical spinal canal FRENCH INSTRUCTOR-PLUMBING TECHNICIAN region S/P lumbar 91630507899 Active Anya History of fusion 106 (SNOMED 08/05 08/[address]) FRENCH INSTRUCTOR-PLUMBING TECHNICIAN Spondylolist 45578042044 Active Scot D 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 Vital Signs Date Name Value Unit Description BMI (Body Mass 35.86 kg/m2 Body Mass Index Index) [Ratio] Preliminary vital sign data, not yet signed by the author as of BP Diastolic 76 mm[Hg] blood pressure, diastolic Preliminary vital sign data, not yet signed by the author as of BP Systolic 113 mm[Hg] blood pressure, systolic Preliminary vital sign data, not yet signed by the author as of Heart Rate 67 /min pulse rate E&M Preliminary vital sign data, not yet signed by the author as of Height 173 cm height in centimeters E&M Preliminary vital sign data, not yet signed by the author as of Height 68 [in_us] height E&M Preliminary vital sign data, not yet signed by the author as of Weight Measured 107 kg weight in kilograms E&M Preliminary vital sign data, not yet signed by the author as of Weight Measured 235 [lb_av] weight E&M Preliminary vital sign data, not yet signed by the author as of Results Date Name Value Unit Range Flag Description Office Visit: New/Est - 1st visit with physician, Rm: 35 MEDS REVIEW Done Documentation of current medications (procedure) Preliminary observation data, not yet signed by the author as of MRI HX of the Left MRI (magnetic shoulder on resonance 01/13/2018 at imaging) history [facility] Preliminary observation data, not yet signed by the author as of Preliminary observation data, not yet signed by the author as of Clinical Summary: HMSPatientID OOP account number Procedures Code Procedure Name Date Entry Date [id number] POLAR CARE [place] COMBO - SHOULDER (BREG) L3660 SHURE SHOULDER IMMOBILIZER (BREG) G8730 Pain assessment documented as positive - follow-up documented G8427 Current medications documented 1036F Tobacco screening was negative - non user G8417 BMI documented as above normal parameters - follow-up documented G8783 Blood pressure within normal parameters - no follow-up required [facility]-[id number] Patient Encounter Medications Administered No information available. [...]
--- OUTSIDE RECORDS SUMMARY | 2018-04-02 04:47 | XMS RPT_ITS ---
:1955 Author Organization OHIP Support Name Relationship Address Phone D Unavailable Unavailable Unavailable PFLUGH, CORRY Unavailable [address] + [place] [address] PFLUGH, JAVIER Unavailable [address] + [place] [address] D Unavailable Unavailable Unavailable PFLUGH, CORRY Unavailable [address] + [place] [address] PFLUGH, JAVIER Unavailable [address] + [place] [address] D Unavailable Unavailable Unavailable PFLUGH, CORRY Unavailable [address] + [place] [address] PFLUGH, JAVIER Unavailable [address] + [place] [address] D Unavailable Unavailable Unavailable PFLUGH, CORRY Unavailable [address] + [place] [address] PFLUGH, JAVIER Unavailable [address] + [place] [address] D Unavailable Unavailable Unavailable PFLUGH, CORRY Unavailable [address] + [place] [address] D Unavailable Unavailable Unavailable PFLUGH, CORRY Unavailable [address] + [place] [address] D Unavailable Unavailable Unavailable PFLUGH, CORRY Unavailable [address] + [place] [address] D Unavailable Unavailable Unavailable PFLUGH, CORRY Unavailable [address] [phone] [place] [address] D Unavailable Unavailable Unavailable PFLUGH, CORRY Unavailable [address] [phone] [place] [address] D Unavailable Unavailable Unavailable D Unavailable Unavailable Unavailable PFLUGH, CORRY Unavailable [address] [phone] [place] [address] D Unavailable Unavailable Unavailable PFLUGH, CORRY Unavailable [address] [phone] [place] [address] PFLUGH, JAVIER Unavailable [address] + [place] [address] D Unavailable Unavailable Unavailable PFLUGH, CORRY Unavailable [address] [phone] [place] [address] PFLUGH, JAVIER Unavailable [address] + [place] [address] D Unavailable Unavailable Unavailable PFLUGH, CORRY Unavailable [address] [phone] [place] [address] PFLUGH, JAVIER Unavailable [address] + [place] [address] D Unavailable Unavailable Unavailable PFLUGH, CORRY Unavailable [address] [phone] [place] [address] PFLUGH, JAVIER Unavailable [address] + [place] [address] D Unavailable Unavailable Unavailable PFLUGH, CORRY Unavailable [address] [phone] [place] [address] PFLUGH, JAVIER Unavailable [address] + [place] [address] Care Team Providers Name Role Phone KHADRA CHAVEZ (TECHNICAL WRITER AND EDITOR) Attending Unavailable CEBUL DOMINICK WELLS Attending Unavailable MARLEY JHA (LAB SCIENTIST) Attending Unavailable CEBUL DOMINICK WELLS Attending Unavailable Iron Mcpherson Attending Unavailable Cebul III, Dominick Primary Care Unavailable Klaudia Wilburn Attending Unavailable Cebul III, Dominick Primary Care Unavailable Klaudia Wilburn Referring Unavailable Leigh Kuhn Consulting Unavailable Cebul III, Dominick Primary Care Unavailable Shelley Boss Attending Unavailable Iron Mcpherson Attending Unavailable Cebul III, Dominick Primary Care Unavailable Melani Toledo Attending Unavailable Roof, Bunny H Attending Unavailable Cebul III, Dominick Referring Unavailable Cebul III, Dominick Primary Care Unavailable Basali, Ayman Attending Unavailable Basali, Ayman Referring Unavailable Cebul III, Dominick Primary Care Unavailable Vellanki, Klaudia Attending Unavailable Vellanki, Klaudia Referring Unavailable Cebul III, Dominick Primary Care Unavailable Vellanki, Klaudia Attending Unavailable Roof, Bunny H Referring Unavailable Cebul III, Dominick Primary Care Unavailable Vellanki, Klaudia Attending Unavailable Roof, Bunny H Referring Unavailable Cebul III, Dominick Primary Care Unavailable Anya Squires TECHNICAL WRITER AND EDITOR-C Attending Unavailable OpsitAnya ruiz TECHNICAL WRITER AND EDITOR-C Referring Unavailable Cebul III, Dominick Primary Care Unavailable Basali, Ayman Consulting Unavailable Roof, Bunny H Consulting Unavailable Vellanki, Klaudia Attending Unavailable Cebul III, Dominick Primary Care Unavailable Elizabeth, Charlie Attending Unavailable Cebul III, Dominick Referring Unavailable JESSEE BANKS Attending Unavailable JESSEE BANKS Referring Unavailable Cebul III, Dominick Primary Care Unavailable Cebul III, Dominick Attending Unavailable Cebul III, Dominick Referring Unavailable Cebul III, Dominick Primary Care Unavailable PROBLEMS PROBLEMS DATE TYPE CONDITION / CODE ATTENDING STATUS SOURCE 02/07/2018 Unknown M75.122 - Complete JESSEE BANKS Active [facility] rotator cuff tear or Community rupture of left Hospital shoulder, not Repository specified as traumatic / M75.122(ICD-10) 02/07/2018 Unknown I25.10 - [place], [place] Active [facility] Atherosclerotic heart Community disease of [facility] coronary artery Repository without angina pectoris / I25.10(ICD-10) 02/07/2018 Unknown Z95.1 - Presence of Elizabeth, Charlie Active [facility] aortocoronary bypass Community graft / Z95.1(ICD-10) Hospital Repository 02/07/2018 Unknown Z95.9 - Presence of [place], [place] Active [facility] cardiac and vascular Community implant and graft, Hospital unspecified / Repository Z95.9(ICD-10) 02/07/2018 Unknown Z01.810 - Encounter [place], [place] Active [facility] for preprocedural Community cardiovascular Hospital examination / Repository Z01.810(ICD-10) 02/07/2018 Unknown I10 - Essential Elizabeth, [place] Active [facility] (primary) Community hypertension / Hospital I10(ICD-10) Repository 02/07/2018 Unknown E78.00 - Pure [place], [place] Active [facility] hypercholesterolemia, Community unspecified / Hospital E78.00(ICD-10) Repository 01/13/2018 Unknown E78.5 - Opsitnick, Active [facility] Hyperlipidemia, Anya TECHNICAL WRITER AND EDITOR-C Community unspecified / Hospital E78.5(ICD-10) Repository 01/11/2018 Unknown M06.00 - Rheumatoid Klaudia Wilburn Active [facility] arthritis without Community rheumatoid factor, Hospital unspecified site / Repository M06.00(ICD-10) 08/17/2017 Unknown Z79.899 - Other long Klaudia Wilburn Active [facility] term (current) drug Community therapy / Hospital Z79.899(ICD-10) Repository 08/17/2017 Unknown M25.511 - Pain in Cosmo Klaudia Active [facility] right shoulder / Community M25.511(ICD-10) Hospital Repository 08/17/2017 Unknown M17.0 - Bilateral Velholly Klaudia Active [facility] primary Community osteoarthritis of Hospital knee / M17.0(ICD-10) Repository 08/17/2017 Unknown 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 / Community Q66.7(ICD-10) Hospital Repository 08/17/2017 Unknown K21.0 - Klaudia Wilburn Active [facility] Gastro-esophageal Community reflux disease with Hospital esophagitis / Repository K21.0(ICD-10) 08/17/2017 Unknown I70.90 - Unspecified Cosmo Klaudia Active [facility] atherosclerosis / Community I70.90(ICD-10) Hospital Repository 08/17/2017 Unknown M47.897 - Other Vellanjasmyn Klaudia Active [facility] spondylosis, Community lumbosacral region / Hospital M47.897(ICD-10) Repository 08/17/2017 Unknown M47.892 - Other Vellanjasmyn, Klaudia Active [facility] spondylosis, cervical Community region / Hospital M47.892(ICD-10) Repository 07/22/2017 Unknown M54.9 - Dorsalgia, Basali, Ayman Active [facility] unspecified / Community M54.9(ICD-10) Hospital Repository 05/06/2017 Unknown M79.606 - Pain in Basali, Ayman Active [facility] leg, unspecified / Community M79.606(ICD-10) Hospital Repository PROCEDURES PROCEDURES No Procedure Records FoundRESULTS RESULTS GLUCOSE Collected: 02/08/2018 Status: F Source: [place] 6:45 AM [facility] REPOSITORY TYPE CODE TESTS RESULT OUT OF RANGE REFERENCE UNITS LAB L501.0100 74-106 mg/dL High GLU 155 Result Comment: Fasting Glucose result greater than or equal to 126 mg/dL suggests DIABETES MELLITUS per A.D.A. criteria. Please note revised GLUCOSE reference range effective 2017. Performed By: #### L501.0100 #### [facility] [address] [place], [address] HEMOGLOBIN A1C Collected: 02/08/2018 Status: F Source: [place] 6:45 AM [facility] TYPE CODE TESTS RESULT OUT OF RANGE REFERENCE UNITS LAB L501.9985 4.2-6.3 % High HGB A1C 6.9 Performed By: #### L501.9985 #### [facility] [address] [place], [address] CNOV Observed: 02/07/2018 Status: COMPLETED Source: [place] 4:40 PM [facility] REPOSITORY Office Visit (FAMPWS) ANTONY MUJICA ([id number]) 1955 M Date Time Provider Department 02/07/18 4:40 PM DOMINICK CUETO IIIPWS During your visit today, we recorded the following information about you: Pulse Respiration Blood pressure Weight 83/minute 16/minute 135/89 104.3 kg Dominick Cueto III MD 02/07/2018 5:59 PM Addendum SUBJECTIVE: This is a 62 year old male that is here today for pre-op evaluation prior to planned surgery for rotator cuff tendons. Reviewed office note of business analysis specialist Dr. Johnson on 02/03/18: He described the patient has a history of ASHD status post bypass surgery in 2003. The patient has been asymptomatic; he is given cardiac clearance for the patient. Reviewed orthopedic note from 02/02/18 Reviewed lab results on 02/07/18: Glucose 247 creatinine 0.76 GFR 112 electrolytes normal CBC normal Chart review shows the patient has not had hypoglycemia where the diagnoses of diabetes mellitus. He admits he does eat a high carbohydrate and high fat diet. He also admits that he has been on a course of prednisone over the last 2 weeks. We discussed that prednisone can cause hyperglycemia. We will significantly reduced carbohydrate in his diet and avoid prednisone prior to the upcoming surgery. Previous glucose 131. 3. major depression--well controlled 4. RA--on humira. Has had courses of prednisone over past yr to treat flares of RA. Fair control PAST MEDICAL HISTORY Diagnosis Date - Acute myocardial infarction of inferoposterior wall, subsequent episode of care ([facility]) - Anxiety 04/02/2011 - Atherosclerotic heart disease of [place] coronary artery without angina pectoris - Bilateral extracranial carotid artery stenosis - Bulge of cervical disc without myelopathy 03/23/2014 [facility] - see scanned documents - Disc bulge C-7-P2-[id number]-6-C-7 - Cataract extraction status, right eye 01/18/15 Right eye-Dr. Lin - Coronary atherosclerosis of unspecified type of vessel, [place] or graft 2 coronary artery stents - DDD (degenerative disc disease), lumbar 07/22/2017 - Depression 04/02/2011 - Essential hypertension, benign - Fibromyalgia 12/02/2010 - GERD (gastroesophageal reflux disease) 07/15 by EGD - Ischemic cardiomyopathy - Lumbar radiculopathy 07/22/2017 - Nausea - Osteoporosis 03/19/2014 [facility] - see scanned documents - Other and unspecified hyperlipidemia - Pure hypercholesterolemia - Rheumatoid arthritis(714.0) 12/02/2010 - Stenosis, spinal, lumbar Current Outpatient Prescriptions on File Prior to Visit: azithromycin (ZITHROMAX Z-LISSETTE) 250 mg tablet Take 2 tablets by mouth day one, then 1 tablet daily until gone. multivit-min/folic/vit K/lycop (ONE-A-DAY MEN'S MULTIVITAMIN ORAL) Take by mouth once daily. cyclobenzaprine (FLEXERIL) 10 mg tablet Take 10 mg by mouth once daily. predniSONE (DELTASONE) 10 mg tablet Take 10 mg by mouth once daily. rosuvastatin (CRESTOR) 10 mg tablet Take 10 mg by mouth once daily. ONDANSETRON HCL ORAL Take by mouth as needed. amitriptyline (ELAVIL) 25 mg tablet Take 1 tablet by mouth daily at bedtime. FLUoxetine HCl (PROZAC) 40 mg capsule Take 1 capsule by mouth once daily. ADALIMUMAB (HUMIRA SUBCUTANEOUS) Inject subcutaneously every 2 weeks. sildenafil (VIAGRA) 50 mg tablet as needed busPIRone (BUSPAR) 5 mg tablet Take 1 tablet by mouth three times daily. sucralfate (CARAFATE) 1 gram tablet TAKE ONE(1) TABLET FOUR(4) TIMES DAILY 1HOUR BEFORE MEALS AND AT BEDTIME. PRN ranolazine SR (RANEXA) 1,000 mg Tb12 Take 2 tablets by mouth twice daily. meloxicam 15 mg tablet Take 1 tablet by mouth once daily. Take with food. carvedilol (COREG) 12.5 mg tablet Take 6.25 mg by mouth twice daily with meals. leflunomide (ARAVA) 20 mg tablet Take 1 tablet by mouth once daily. Omeprazole (PRILOSEC) 40 mg ORAL capsule Take 40 mg by mouth once daily. lisinopril (PRINIVIL) 5 mg ORAL tablet Take one(1) tablet daily. clopidogrel bisulfate(PLAVIX 75 MG TAB) Take one(1) tablet daily. oxyCODONE-acetaminophen 10 mg - 325 mg (PERCOCET) 10-325 mg ORAL per tablet Take 1 tablet by mouth every 6 hours as needed. FOR PAIN. No current facility-administered medications on file prior to visit. FAMILY HISTORY Problem Relation Age of Onset - Diabetes Father - Heart Father - Heart Mother - Diabetes Mother - Alcohol/Drug Sister Social History Substance Use Topics - Smoking status: Former Smoker Packs/day: 0.75 Years: 25.00 Quit date: 03/07/2004 - Smokeless tobacco: Never Used Comment: quit 2004 - Alcohol use No BP 135/89 Pulse 83 Resp 16 Wt 104.3 kg (230 lb) BMI 33.97 kg/m? . OBJECTIVE: APPEARANCE Well appearing, alert, in no acute distress, well- hydrated, well nourished. and Obese Appearance: well dressed well groomed, cooperative and pleasant Behavior: good eye contact Speech: fluent and coherent Mood: euthymic Affect: appropriate Perceptions: none Thought process: goal directed Thought Content: normal Intelligence level: normal Insight: good Judgment: good ASSESSMENT: new dx of diabetes mellitus ASHD--stable hyeprtension--well controlled hyperlipidemia--at goal May proceed with surgery if glucose can be controlled PLAN: FBS, HbA1c at [facility] on 02/08 pre-op form faxed to Dr Tavarez--may need to give medication for glucose pre-0p same medications Avoid steroids healthy weight losing diet and regular exercise eat less sugar, bread, potato, pasta, rice, corn, corn syrup, saturated fats return to office 1 mo to follow probable diabetes mellitus RUSSELL Simon MD, III MD 02/07/2018 5:00 PM Signed PLAN: FBS, HbA1c at [facility] on 02/08 pre-op form faxed to Dr Tavarez same medications healthy weight losing diet and regular exercise eat less sugar, bread, potato, pasta, rice, corn, corn syrup, saturated fats return to office 1 mo to follow probable diabetes mellitus Dominick Cueto III MD Referring Provider: SELF [[id number]] Allergies As of Date: 02/07/2018 Noted Allergy Reaction ENTEX PSE (PSEUDOEPHEDRINE-GUAIFE*11/09/2006 Comments: chest pain Date Reviewed: 02/07/2018 Reviewed by: Karla ([facility]) JULIET Hernandez - Fully Assessed Primary Visit Diagnosis:Pre-operative examination [Z01.818] Other Visit Diagnoses:Complete tear of right rotator cuff [M75.121] Hyperglycemia [R73.9] Atherosclerosis of [place] coronary artery of [place] heart without angina pectoris [I25.10] Essential hypertension [I10] Rheumatoid arthritis involving multiple sites with positive rheumatoid factor (HCC) [M05.79] Recurrent major depressive disorder, in full remission (HCC) [F33.42] Prescriptions as of 02/07/2018 Sig: AZITHROMYCIN 250 MG TABLET Take 2 tablets by mouth day o* ONE-A-DAY MEN'S MULTIVITAMIN * Take by mouth once daily. CYCLOBENZAPRINE 10 MG TABLET Take 10 mg by mouth once myranda* PREDNISONE 10 MG TABLET Take 10 mg by mouth once myranda* ROSUVASTATIN 10 MG TABLET Take 10 mg by mouth once myranda* ONDANSETRON HCL ORAL Take by mouth as needed. AMITRIPTYLINE 25 MG TABLET Take 1 tablet by mouth daily * FLUOXETINE 40 MG CAPSULE Take 1 capsule by mouth once * HUMIRA SUBCUTANEOUS Inject subcutaneously every * SILDENAFIL 50 MG TABLET as needed BUSPIRONE 5 MG TABLET Take 1 tablet by mouth three * SUCRALFATE 1 GRAM TABLET TAKE ONE(1) TABLET FOUR(4) TI* RANOLAZINE ER 1,000 MG TABLET* Take 2 tablets by mouth twice* MELOXICAM 15 MG TABLET Take 1 tablet by mouth once d* CARVEDILOL 12.5 MG TABLET Take 6.25 mg by mouth twice d* LEFLUNOMIDE 20 MG TABLET Take 1 tablet by mouth once d* OMEPRAZOLE 40 MG CAPSULE,CLAUDIA* Take 40 mg by mouth once myranda* LISINOPRIL 5 MG TABLET Take one(1) tablet daily. PLAVIX 75 MG TABLET Take one(1) tablet daily. OXYCODONE-ACETAMINOPHEN 10 MG* Take 1 tablet by mouth every * Problem List As Of Date 02/07/2018 Noted Resolved HYPERLIPIDEMIA NEC/NOS [E78.5] FL INF/POST SUBSEQNT EPISD CARE [I21.19] CORON ATHEROSCL [place]AY OWINGEH CORON VESSEL [I25.10] Cervical disc disorder with radiculopathy [M50.*INVALID FOR* More... Abdominal Pain [R10.9] INVALID FOR* GERD (gastroesophageal reflux disease) [K21.9] INVALID FOR* More... Rheumatoid arthritis involving multiple sites w*INVALID FOR* Depression [F32.9] INVALID FOR* Anxiety [F41.9] INVALID FOR* Osteoporosis [M81.0] INVALID FOR* More... Essential hypertension [I10] INVALID FOR* Vertebral compression fracture (HCC) [M48.50XA] INVALID FOR* DDD (degenerative disc disease), lumbar [M51.36]INVALID FOR* Lumbar radiculopathy [M54.16] INVALID FOR* Recurrent major depressive disorder, in full re*INVALID FOR* Other instructions from your clinician: PLAN: FBS, HbA1c at [facility] on 02/08 pre-op form faxed to Dr Tavarez same medications healthy weight losing diet and regular exercise eat less sugar, bread, potato, pasta, rice, corn, corn syrup, saturated fats return to office 1 mo to follow probable diabetes mellitus Dominick Cueto III MD Encounter Status:Closed by DOMINICK CUETO III, MD on 02/07/18 PROGRESS Observed: 02/07/2018 Status: COMPLETED Source: [facility] 4:39 PM [facility] REPOSITORY [facility] ID: [id number] Author: Dominick Cueto III Service: (none) Author Type: Physician Type: Progress Notes Filed: 02/07/2018 5:59 PM Note Text: SUBJECTIVE: This is a 62 year old male that is here today for pre-op evaluation prior to planned surgery for rotator cuff tendons. Reviewed office note of business analysis specialist Dr. Johnson on 02/03/18: He described the patient has a history of ASHD status post bypass surgery in 2003. The patient has been asymptomatic; he is given cardiac clearance for the patient. Reviewed orthopedic note from 02/02/18 Reviewed lab results on 02/07/18: Glucose 247 creatinine 0.76 GFR 112 electrolytes normal CBC normal Chart review shows the patient has not had hypoglycemia where the diagnoses of diabetes mellitus. He admits he does eat a high carbohydrate and high fat diet. He also admits that he has been on a course of prednisone over the last 2 weeks. We discussed that prednisone can cause hyperglycemia. We will significantly reduced carbohydrate in his diet and avoid prednisone prior to the upcoming surgery. Previous glucose 131. 3. major depression--well controlled 4. RA--on humira. Has had courses of prednisone over past yr to treat flares of RA. Fair control PAST MEDICAL HISTORY Diagnosis Date - Acute myocardial infarction of inferoposterior wall, subsequent episode of care ([facility]) - Anxiety 04/02/2011 - Atherosclerotic heart disease of [place] coronary artery without angina pectoris - Bilateral extracranial carotid artery stenosis - Bulge of cervical disc without myelopathy 03/23/2014 [facility] - see scanned documents - Disc bulge R-2-R5-C-6-C-7 - Cataract extraction status, right eye 01/18/15 Right eye-Dr. Lin - Coronary atherosclerosis of unspecified type of vessel, [place] or graft 2 coronary artery stents - DDD (degenerative disc disease), lumbar 07/22/2017 - Depression 04/02/2011 - Essential hypertension, benign - Fibromyalgia 12/02/2010 - GERD (gastroesophageal reflux disease) 07/15 by EGD - Ischemic cardiomyopathy - Lumbar radiculopathy 07/22/2017 - Nausea - Osteoporosis 03/19/2014 [facility] - see scanned documents - Other and unspecified hyperlipidemia - Pure hypercholesterolemia - Rheumatoid arthritis(714.0) 12/02/2010 - Stenosis, spinal, lumbar Current Outpatient Prescriptions on File Prior to Visit: azithromycin (ZITHROMAX Z-LISSETTE) 250 mg tablet Take 2 tablets by mouth day one, then 1 tablet daily until gone. multivit-min/folic/vit K/lycop (ONE-A-DAY MEN'S MULTIVITAMIN ORAL) Take by mouth once daily. cyclobenzaprine (FLEXERIL) 10 mg tablet Take 10 mg by mouth once daily. predniSONE (DELTASONE) 10 mg tablet Take 10 mg by mouth once daily. rosuvastatin (CRESTOR) 10 mg tablet Take 10 mg by mouth once daily. ONDANSETRON HCL ORAL Take by mouth as needed. amitriptyline (ELAVIL) 25 mg tablet Take 1 tablet by mouth daily at bedtime. FLUoxetine HCl (PROZAC) 40 mg capsule Take 1 capsule by mouth once daily. ADALIMUMAB (HUMIRA SUBCUTANEOUS) Inject subcutaneously every 2 weeks. sildenafil (VIAGRA) 50 mg tablet as needed busPIRone (BUSPAR) 5 mg tablet Take 1 tablet by mouth three times daily. sucralfate (CARAFATE) 1 gram tablet TAKE ONE(1) TABLET FOUR(4) TIMES DAILY 1HOUR BEFORE MEALS AND AT BEDTIME. PRN ranolazine SR (RANEXA) 1,000 mg Tb12 Take 2 tablets by mouth twice daily. meloxicam 15 mg tablet Take 1 tablet by mouth once daily. Take with food. carvedilol (COREG) 12.5 mg tablet Take 6.25 mg by mouth twice daily with meals. leflunomide (ARAVA) 20 mg tablet Take 1 tablet by mouth once daily. Omeprazole (PRILOSEC) 40 mg ORAL capsule Take 40 mg by mouth once daily. lisinopril (PRINIVIL) 5 mg ORAL tablet Take one(1) tablet daily. clopidogrel bisulfate(PLAVIX 75 MG TAB) Take one(1) tablet daily. oxyCODONE-acetaminophen 10 mg - 325 mg (PERCOCET) 10-325 mg ORAL per tablet Take 1 tablet by mouth every 6 hours as needed. FOR PAIN. No current facility-administered medications on file prior to visit. FAMILY HISTORY Problem Relation Age of Onset - Diabetes Father - Heart Father - Heart Mother - Diabetes Mother - Alcohol/Drug Sister Social History Substance Use Topics - Smoking status: Former Smoker Packs/day: 0.75 Years: 25.00 Quit date: 03/07/2004 - Smokeless tobacco: Never Used Comment: quit 2003 - Alcohol use No BP 135/89 Pulse 83 Resp 16 Wt 104.3 kg (230 lb) BMI 33.97 kg/m? . OBJECTIVE: APPEARANCE Well appearing, alert, in no acute distress, well-hydrated, well nourished. and Obese Appearance: well dressed well groomed, cooperative and pleasant Behavior: good eye contact Speech: fluent and coherent Mood: euthymic Affect: appropriate Perceptions: none Thought process: goal directed Thought Content: normal Intelligence level: normal Insight: good Judgment: good ASSESSMENT: new dx of diabetes mellitus ASHD--stable hyeprtension--well controlled hyperlipidemia--at goal May proceed with surgery if glucose can be controlled PLAN: FBS, HbA1c at [facility] on 02/08 pre-op form faxed to Dr Tavarez--may need to give medication for glucose pre-0p same medications Avoid steroids healthy weight losing diet and regular exercise eat less sugar, bread, potato, pasta, rice, corn, corn syrup, saturated fats return to office 1 mo to follow probable diabetes mellitus Dominick Cueto III MD BASIC METABOLIC Collected: 02/07/2018 Status: F Source: [place] PROFILE (BMP) 6:31 AM [facility] REPOSITORY TYPE CODE TESTS RESULT OUT OF RANGE REFERENCE UNITS LAB L501.0100 74-106 mg/dL High GLU 247 Result Comment: Glucose result greater than or equal to 200 mg/dL suggests DIABETES MELLITUS per A.D.A. criteria. Please note revised GLUCOSE reference range effective 2017. LAB L501.1000 7-18 mg/dL Normal BUN 13 LAB L501.1100 0.70-1.30 mg/dL Normal CREAT,SERUM 0.76 Result Comment: The validity of the calculated GFR AND GFRAA in patients over 70 years has not been determined. Clinical correlation is essential. LAB L501.1110 >60 mL/min Normal EST GFR 112 Result Comment: Non- GFR Calc LAB L501.1115 >60 mL/min Normal EST GFR - AA 135 Result Comment: GFR Calc LAB L501.1300 10-20 RATIO Normal BUN/CRE 17.2 LAB L501.2200 8.5-10.1 mg/dL CA Normal 8.7 LAB L501.5300 136-145 mmol/L NA Normal 141 LAB L501.5600 3.5-5.1 mmol/L K Normal 3.9 Result Comment: Slight Hemolysis, Result may be falsely increased. LAB L501.5900 98-107 mmol/L Normal CL 106 LAB L501.6100 21.0-32.0 mmol/L Normal CO2 25.0 LAB L501.6200 5-15 Normal GAP 10 Performed By: #### L500.2500 #### [facility] [address] [place], [address] CBC W/DIFF, AUTOMATED Collected: 02/07/2018 Status: F Source: [place] 6:31 AM [facility] REPOSITORY TYPE CODE TESTS RESULT OUT OF RANGE REFERENCE UNITS LAB L100.1000 4.4-11.0 K/mm3 Normal WBC 6.8 LAB L100.1200 4.6-6.2 M/mm3 Low RBC 4.19 LAB L100.1300 13.0-16.5 g/dl Normal HGB 14.3 LAB L100.1400 40-54 % Normal HCT 41.6 LAB L100.1500 80-94 fL High MCV 99.3 LAB L100.1600 27.0-32.0 pg High MCH 34.1 LAB L100.1700 32-36 g/gl Normal MCHC 34.4 LAB L100.1810 11.6-14.6 % Normal RDW CV 14.5 LAB L100.1820 35.1-43.9 fl High RDW SD 52.1 LAB L100.1900 150-450 K/mm3 Normal PLT 215 LAB L100.2000 6.2-12.0 fl Normal MPV 9.1 LAB L100.2100 47-70 % Low NEUT% 37.8 LAB L100.2200 19-41 % High LY% 43.4 LAB L100.2300 0-10 % High MONO% 16.3 LAB L100.2400 0-5 % Normal EO% 1.8 LAB L100.2500 0-1 % Normal BASO% 0.4 LAB L100.2550 0.0-0.9 % Normal IM GRAN % 0.300 Result Comment: IG% - Immature Granulocytes (promyelocytes, myelocytes and metamyelocytes) > 1% indicates that a LEFT SHIFT is Present. LAB L100.2620 2.0-7.7 X10 3/uL Normal Absolute Neut 2.6 LAB L100.2720 0.83-4.51 X10 3/ul Normal Absolute Lymph 2.95 Performed By: #### L100.0100 #### [facility] [address] [place], [address] VITAMIN D,25 HYDROXY Collected: 02/07/2018 Status: F Source: [place] 6:31 AM [facility] REPOSITORY TYPE CODE TESTS RESULT OUT OF REFERENCE UNITS RANGE LAB L506.1000 29.95-100.01 ng/mL Low Vitamin D 29.6 25-OH Result Comment: Vitamin D 25(OH) Status Range Deficiency <20 ng/mL (50nmol/L) Insuffciency 20 - 30 ng/mL (50 - 75 nmol/L) Sufficiency 30 - 100 ng/mL (75 - 250 nmol/L) Toxicity >100 ng/mL (>250 nmol/L) Performed By: #### L506.1000 #### [facility] [address] [place], [address] CARDIOLOGY VISIT Observed: 02/03/2018 Status: F Source: [place] REPORT 9:50 AM [facility] REPOSITORY [facility] [place] [address] OFFICE VISIT Date of Service: 02/03/18 MR#: [id number] Acct: [id number] Name: ANTONY MUJICA Rep #: [id number] : 1955 Provider: Charlie Johnson MD Age/Sex: 62/M Location: [facility] Status: Signed HPI [facility] Chief Complaint: Follow up and preoperative cardiac evaluation Details: ANTONY MUJICA, is a 62 M who presents to the office today for a cardiovascular outpatient follow-up. He has a history of coronary artery disease disease status post bypass surgery in 2003 with an JOHN to LAD, SVG to ramus intermedius, SVG to LCx, and SVG to RCA. He also underwent drug-eluting stent to proximal RCA, mid RCA, and distal RCA in April 2016. He also has history of hypertension, hyperlipidemia, arthritis, degenerative joint disease, and fibromyalgia. He tells me that he has had some left shoulder problems and will be undergoing surgery at the [facility] next week. He has had no neck arm or jaw discomfort to suggest angina no dizziness or diaphoresis no near syncope or syncope. He has been compliant with all his medications. His physical exam today demonstrates clear lung davila regular rate and rhythm and no pedal edema his blood pressure is under good control. His electrocardiogram demonstrates normal sinus rhythm with a rate of 79 bpm evidence of an inferior posterior myocardial infarction. In comparison to the EKG from 2016 there have been no changes. 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 Required: No Is patient in pain?: No Allergies No Known Allergies Allergy (Verified 02/03/18 09:22) Medications Carvedilol [Coreg (Beta Marlene)] 6.25 mg PO BID 07/03/14 [History Confirmed 02/03/18] Fluoxetine HCl 40 mg PO QHS 07/03/14 [History Confirmed 02/03/18] Leflunomide [Arava] 20 mg PO QHS 07/03/14 [History Confirmed 02/03/18] Lisinopril [Zestril] 5 mg PO QHS 07/03/14 [History Confirmed 02/03/18] Meloxicam [Mobic] 15 mg PO QHS 07/03/14 [History Confirmed 02/03/18] Omeprazole [Prilosec] 40 mg PO QHS 07/03/14 [History Confirmed 05/12/17] Adalimumab [Humira] 40 mg SQ Q14D 04/14/16 [History Confirmed 02/03/18] nitroglycerin 0.4 mg sublingual tablet 0.4 mg SUBLINGUAL Q5M PRN 05/12/17 [History Confirmed 02/03/18] rosuvastatin 10 mg tablet 10 mg PO QDAY #90 tab 06/18/17 [Rx Confirmed 06/18/17] ranolazine ER 1,000 mg tablet,extended release,12 hr 1,000 mg PO BID #180 tab 08/19/17 [Rx] clopidogrel 75 mg tablet 75 mg PO QHS #90 tab 01/19/18 [Rx Confirmed 02/03/18] oxycodone-acetaminophen 7.5 mg-325 mg tablet 1 tab PO Q6H PRN 02/03/18 [History Confirmed 02/03/18] [facility] Medical History Bilateral carotid artery stenosis (Chronic) Atherosclerotic heart disease of [place] coronary artery without angina pectoris (Chronic) Old myocardial infarction (Chronic) Ischemic cardiomyopathy (Chronic) correction use of drug (Chronic) Rheumatoid arthritis (Chronic) Coronary artery disease (Chronic) Carotid stenosis, right (Chronic) CVA (cerebral vascular accident) (Acute) Hyperlipidemia (Chronic) HTN (hypertension) (Chronic) Surgical History Aortocoronary bypass status (Chronic) Status post angioplasty with stent (Chronic) Family History Father CAD (coronary artery disease) Diabetes Social History Smoking Status: Former smoker alcohol intake: never substance use type: does not use caffeine: Yes Type: coffee Number of servings: 2 what type of physical activity do you participate in: walking, bicycling frequency: daily duration: 60-90 minutes/day seatbelt use: always do you feel safe at home: Yes ROS Const Const: Negative for fatigue, weakness, night sweats, excessive sweating, frequent falls, headache(s) or daytime sleepiness Eyes Eyes: Negative for loss of peripheral vision, transient loss of vision, blind spots, double vision or blurry vision ENT ENT: Negative for headache(s), dizziness, balance problems, Nosebleed/epistaxis, tongue swelling or lip swelling Cardio Chest Pain: No Palpitations: No Edema: None Muscle aches with walking: None Resp Respiratory: Negative for SOB at rest, SOB orthopnea\SOB lying down, Cough, paroxysmal nocturnal dyspnea or SOB with activity GI GI: Negative nausea, vomiting, heartburn, black,tarry stools or bright, red blood in stools : Negative for hematuria Musc Musc: Negative for balance problems, muscle aches/ myalgia, muscle weakness or joint pain Skin Skin: Negative non-healing lesions, unusual bruising or rash Neuro Neuro: Negative for weakness, frequent falls, headache(s), double vision, dizziness, lightheadedness, orthostatic symptoms, blurry vision or lack of coordination Oracio Hematologic/Lymphatic: Negative for easy bruising or easy bleeding Endo Endo: Negative for fatigue, excessive sweating, cold intolerance, heat intolerance, increased thirst/drinking or hair loss Psych Psych: Negative for anxiety or depression Allergy Allergy/Immunology: Negative for throat swelling, Negative for tongue swelling, Negative for hives, Negative for rash, Negative for lip swelling Cardiology Exam Const Appearance: cooperative, healthy appearing, well developed, well groomed and no acute distress Nutritional Appearance: well nourished and average body habitus Orientation: alert, awake and oriented x3 Head Head: normal to inspection, normocephalic and atraumatic Ears: hearing grossly normal bilaterally and external ears normal Nose: external nose normal, nasal mucous membranes and turbinates normal, nares normal, septum normal, no nasal discharge Face and Sinus: face symmetric Mouth: oral mucosae normal, tongue normal, oropharynx normal and moist mucous membranes Teeth and gingiva: dentition normal Throat: posterior oropharynx normal, tonsils normal and uvula midline Eyes General: appearance normal, both eyes and all related structures Eyelids: eyelids normal Conjunctivae: conjunctivae normal Pupils: PERRL, normal by confrontation and accommodation normal EOM: EOM intact bilaterally Neck Neck: normal visual inspection, trachea midline and no JVD JVD: +5 Carotids: normal carotid upstroke and bounding pulses Chest Chest inspection: normal inspection of the chest, symmetric chest movement and normal respiratory effort Auscultation: Bilateral: Clear to Auscultation Cardio Palpation: normal PMI Rate: regular rate Rhythm: regular rhythm Heart sounds: S1 normal, S2 normal and normal, physiologic split S2; negative rub, gallop or murmur GI GI: normal to inspection, soft, no hepatosplenomegaly and bowel sounds present Neuro General: alert, awake, oriented x3, no focal sensory deficit, gait normal and moves all extremities Skin Skin: no rashes or lesions noted Extremities Pulses: Normal: Right Femoral Pulse, Left Femoral Pulse, Right Dorsalis Pedis Pulse, Left Dorsalis Pedis Pulse, Right Posterior Tibial Pulse, Left Posterior Tibial Pulse, Right Radial Pulse, Left Radial Pulse Lower Extremity Edema: None: Bilateral Musculoskel Musculoskeletal: No joint tenderness Psych Psychological: normal affect Assessment AND Plan 1. Preop cardiovascular exam Z01.810 Plan He is here for preoperative cardiovascular exam. He has been doing well with no evidence of angina. For the surgery that he is intended to undergo I do not see any contraindications. His clopidogrel should be discontinued 3-5 days prior to surgery. I would recommend that he continue on his aspirin and continue his beta-marlene as well. 2. Aortocoronary bypass status Z95.1 CABG X 5v on 05/09, Lt IT to LAD, SVG to RI, 1st Diag. of LAD, SVG to CFX, RCA Plan He is status post coronary bypass surgery. His last catheterization in 2017 demonstrated total occlusion of the [place] mid LAD, the JOHN to the LAD was patent, total occlusion of the circumflex artery, and 60-70% stenosis of the right coronary artery in the proximal, mid, and distal areas. The vein graft to the right coronary artery was totally occluded and there was a 90% lesion in a very small posterolateral ventricular branch. Medical therapy was recommended. The saphenous vein graft to obtuse marginal branch was patent. We will continue with medical therapy especially in light of the fact that he has had no angina. Orders Orders: 3. Essential hypertension I10 Plan He does have a history of hypertension but his blood pressure is well controlled on the current medical therapy no changes will be made. 4. Pure hypercholesterolemia E78.00 Plan He has a history of hyperlipidemia and remains on his current medications his most recent lipid profile demonstrated total cholesterol 151, LDL of 59 and HDL of 34. He is on 10 mg of rosuvastatin which we will continue. Plan Detail Other Orders Orders: Follow Up 6 Months ([facility]) Coding Level of Care Code Off vis,est,level 4 Diagnoses Preop cardiovascular exam Z01.810 Aortocoronary bypass status Z95.1 Essential hypertension I10 Hypertension type: essential hypertension Pure hypercholesterolemia E78.00 Hyperlipidemia type: pure hypercholesterolemia Coding Level of Care Code Off vis,est,level 4 Diagnoses Preop cardiovascular exam Z01.810 Aortocoronary bypass status Z95.1 Essential hypertension I10 Hypertension type: essential hypertension Pure hypercholesterolemia E78.00 Hyperlipidemia type: pure hypercholesterolemia 02/03/18 0950 <Electronically signed by Charlie Johnson MD> Date Charlie Johnson MD Cosigner Signature: Date (if applicable) CC: STEPHANIA TAVAREZ; Dominick Cueto III, MD 12 LEAD EKG PERFORMED Observed: 02/03/2018 Status: F Source: [place] BY [place] 9:18 AM [facility] REPOSITORY [facility] [address] [place] [address] 12 Lead EKG performed by [facility] 02/03/18916 MR#: [id number] Acct: [id number] Name: ANTONY MUJICA W Rep #: [id number] : 1955 62 From: Charlie Johnson MD Attending Dr: Charlie Johnson MD Status: DEP AMB Ordering Dr: Charlie Johnson MD Date: 02/03/18 Location: [facility] [place] Sex: M C Admitted: [facility]/12 Lead EKG performed by [facility] Sinus Rhythm - Inferior -lateral infarct (age undetermined) -Prominent R(V1) true posterior extension of inferior FL -Left axis -may be secondary to nfarct. ABNORMAL 02/07/18840 <Electronically signed by Charlie Johnson MD> Date Charlie Johnson MD CC: Dominick Cueto III, MD Date Dictated: 02/03/18916 Date Transcribed: 02/03/18916 Account Manager Relief: CO Signed UPPER EXT JOINT Observed: 01/13/2018 Status: F Source: [place] ONLY(ROUTINE) 6:36 AM [facility] REPOSITORY [facility] Imaging Services [address] [place] [address] Upper Ext Joint Only(Routine) MR#: [id number] Acct: [id number] Name: ANTONY MUJICA W Rep #: [id number] : 1955 M 62 From: Mickey Terry MD PCP: Nory WELLS MD,Dominick Status: REG CLI Study: Upper Ext Joint Only(Routine) Date of Exam: 01/13/18 Exam# [id number] Ordering Dr: Anya Squires TECHNICAL WRITER AND EDITOR-C STUDY: MRI LEFT SHOULDER REASON FOR EXAM: Male, 62 years old. Impingement. Limited range of motion. Weakness. TECHNIQUE: Standardized fat and water weighted pulse sequences were obtained in all 3 orthogonal planes. COMPARISON: X-ray April 23, 2015 FINDINGS: Full thickness tear of the distal supraspinatus tendon with retraction of 3.2 cm, series 5 images 08/27 through 12/27. Full thickness tear of the distal infraspinatus tendon with retraction of 2.1 cm, series 5 images of 01/27 through . There is decreased subacromial space. There is subscapularis tendinosis with tendon thickening, but without a demonstrated tendon tear. Normal teres minor tendon. There is severe muscular atrophy of the supraspinatus muscle. There is severe muscular atrophy of the infraspinatus muscle. Normal subscapularis muscle. Normal teres minor muscle. There is a small volume joint effusion of the glenohumeral joint. Normal humeral head and visualized proximal humerus. There is tearing at the biceps anchor with subluxation from the bicipital groove. Normal labrum. Normal capsulo- ligamentous complex. Normal rotator interval. 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 There is a Type II morphology (curved), with a neutral orientation. There is mild fluid distention of the subacromial bursa, consistent with mild subacromial-subdeltoid bursitis. Normal visualized coracohumeral and coracoacromial ligaments. Normal quadrilateral space. Normal axillary space. Normal deltoid muscle. Normal trapezius muscle. MRI/Upper Ext Joint Only(Routine) IMPRESSION: Chronic full-thickness rotator cuff tear of the supraspinatus and infraspinatus tendons. Tear at the biceps anchor with subluxation of the long head of the biceps. Electronically Signed: Mickey Terry MD at 13:48 EST , Service support , CC: Anya Squires; Dominick Cueto III, MD Account Manager Relief: Signed SPINE CERVICAL Observed: 01/13/2018 Status: F Source: [place] (ROUTINE) 6:36 AM [facility] REPOSITORY [facility] Imaging Services [address] [place] [id number] Spine Cervical (Routine) MR#: [id number] Acct: [id number] Name: ANTONY MUJICA Rep #: [id number] : 1955 M 62 From: Hattie Kemp MD PCP: Dominick Cueto III, MD Status: REG CLI Study: Spine Cervical (Routine) Date of Exam: 01/13/18 Exam# [id number] Ordering Dr: Anya Squires STUDY: MRI CERVICAL SPINE WITHOUT CONTRAST REASON FOR EXAM: Male, 62 years old. Stenosis. Posterior neck pain radiating to the shoulders. TECHNIQUE: Standardized fat and water weighted pulse sequences were obtained in the sagittal and axial planes. COMPARISON: None FINDINGS: Normal foramen magnum and brainstem-cervical cord junction. Normal craniovertebral junction. Normal anterior atlantoaxial articulation. Normal odontoid process. Normal cervical lordosis. Normal vertebral bodies and posterior osseous elements. C2-3: Normal endplates. Normal disc height, signal and morphology. Normal central canal and intervertebral neural foramina. C3-4: Normal endplates. Normal disc height, signal and morphology. Normal central canal. There is mild right foraminal encroachment due to uncinate and mild facet hypertrophy. C4-5: Normal endplates. Normal disc height, signal and morphology. Normal central canal. There is mild foraminal encroachment due to mild facet hypertrophy. C5-6: Normal endplates. Normal disc height, signal and morphology. Normal central canal. Severe bilateral foraminal stenosis due to uncinate and facet hypertrophy. C6-7: Normal endplates. Normal disc height, signal and morphology. Normal central canal. Mild foraminal encroachment due to uncinate hypertrophy. C7-T1: Normal endplates. Normal disc height, signal and morphology. Normal central canal and intervertebral neural foramina. Normal cervical cord. Normal visualized soft tissue structures. MRI/Spine Cervical (Routine) IMPRESSION: 1. No evidence of disc protrusion or canal stenosis. 2. Multilevel foraminal encroachment, greatest at C5-6. Electronically Signed: Hattie Kemp MD at 23:52 EST Tel , Service support , CC: Anya Squires; Dominick Cueto III, MD Account Manager Relief: Signed URINE DRUG SCREEN Collected: 01/13/2018 Status: F Source: [place] (VISTA) 6:25 AM [facility] REPOSITORY Order Comment: LIVER AND LIPID FOR DR LEWIS MED TOX FOR DR MCPHERSON Comments: URINE TOXICOLOGY [id number] RUN LOWEST TEST List of Drugs Taken or Suspected? UNK TYPE CODE TESTS RESULT OUT OF RANGE REFERENCE UNITS LAB L505.0075 TO BE Normal CONFIRMED Result Comment: CONFIRMATORY TESTING FOR ALL POSITIVE URINE DRUG SCREEN RESULTS WILL ONLY BE SENT OUT UPON PHYSICIAN ORDER. VISTA Urine Drug Screen methods provide only preliminary analytical test results. A more specific alternate chemical method must be used in order to obtain a confirmed analytical result. Gas chromatography/mass spectrometery (GC/MS) is the preferred confirmatory method. Clinical consideration and professional judgement should be applied to any drug of abuse test result, particularly when preliminary positive results are used. URINE TCA TESTING MUST BE ORDERED SEPARATELY. USE TEST MNEMONIC: [facility] LAB L505.5005 VISTA UDS PH 5 Normal LAB L505.5015 <1000 ng/mL AMPHETAMINES Normal NEGATIVE LAB L505.5025 < 200 ng/mL BARBITIURATES Normal NEGATIVE LAB L505.5035 < 200 ng/mL BENZODIAZIPINE Normal NEGATIVE LAB L505.5045 < 300 ng/mL COCAINE Normal NEGATIVE LAB L505.5055 < 500 ng/mL ECSTACY Normal NEGATIVE LAB L505.5065 < 300 ng/mL METHADONE Normal NEGATIVE LAB L505.5075 < 300 ng/mL OPIATES Normal NEGATIVE LAB L505.5085 < 25 ng/mL PCP Normal NEGATIVE LAB L505.5095 < 50 ng/mL THC Normal NEGATIVE Performed By: #### L505.5000 #### [facility] [address] [place], [address] MISCELLANEOUS LAB Collected: 01/13/2018 Status: F Source: [place] PROCEDURE 6:25 AM [facility] REPOSITORY Order Comment: LIVER AND LIPID FOR DR LEWIS MED TOX FOR DR MCPHERSON Comments: URINE TOXICOLOGY [id number] RUN LOWEST TEST Test(s) Ordered: URINE TOXICOLOGY [id number] RUN LOWEST TEST TYPE CODE TESTS RESULT OUT OF RANGE REFERENCE UNITS LAB L801.1541 Normal [facility] LAB TEST Result Comment: [id number] 6+OXYCODONE-BUND (ng/mL) DRUG RESULT SCREEN CUTOFF ____ Amphetamines,Urine Negative ng/mL 1000 Amphetamine test includes Amphetamine and Methamphetamine. Barbiturates Negative ng/mL 200 Benzodiazepines Negative ng/mL 200 Cannabinoid Positive ng/mL 20 Carboxy THC GC/MS Conf 37 ng/mL 10 Cocaine (Metab) Negative ng/mL 300 Opiates Negative ng/mL 300 Opiates test includes Codeine, Morphine, Hydromorphone, Hydrocodone. Oxycodone/Oxymorphone,Urine Negative ng/mL 300 Test includes Oxydodone and Oxymorphone. TESTING PERFORMED AT [facility]. ORIGINAL REPORT ON FILE IN LAB CONTAINS ADDITIONAL TEST SITE INFORMATION. Performed By: #### L801.1541 #### [facility] [address] [facility] [id number] LIVER PROFILE Collected: 01/13/2018 Status: F Source: [place] 6:23 AM [facility] REPOSITORY Order Comment: LIVER AND LIPID FOR DR LEWIS MED TOX FOR DR MCPHERSON Comments: URINE TOXICOLOGY [id number] RUN LOWEST TEST TYPE CODE TESTS RESULT OUT OF RANGE REFERENCE UNITS LAB L501.1500 6.4-8.2 g/dL Normal T PROT 6.8 LAB L501.1800 3.2-5.0 g/dL Normal ALB 3.3 LAB L501.1950 2.2-4.2 g/dL Normal GLOB 3.5 LAB L501.4100 15-37 U/L Normal AST 27 LAB L501.4305 45-117 U/L High ALK P 135 LAB L501.4405 16-61 U/L Normal ALT 38 LAB L501.4600 0.20-1.00 mg/dL Normal T BILI 0.50 LAB L501.4700 0.00-0.30 mg/dL Normal D BILI 0.12 Performed By: #### L500.3400, L500.4100 #### [facility] [address], [id number] LIPID PROFILE Collected: 01/13/2018 Status: F Source: [place] 6:23 AM [facility] REPOSITORY Order Comment: LIVER AND LIPID FOR DR LEWIS MED TOX FOR DR MCPHERSON Comments: URINE TOXICOLOGY [id number] RUN LOWEST TEST TYPE CODE TESTS RESULT OUT OF RANGE REFERENCE UNITS LAB L501.4900 200 mg/dL Normal CHOL 151 Result Comment: <200 mg/dL Desirable 200-240 mg/dL Borderline >240 mg/dL High Risk LAB L501.5000 mg/dL High TRIG 292 Result Comment: The drugs N-Acetylcysteine and Metamizole may falsely depress this assay. Serum Triglycerides Reference Interval Normal <150 mg/dL Borderline high 150 - 199 mg/dL High 200 - 499 mg/dL Very High > or = 500 mg/dL LAB L501.6400 mg/dL Low HDL 34 Result Comment: The drugs N-Acetylcysteine and Metamizole may falsely depress this assay. Reference Range HDL <40 mg/dL Low HDL Cholesterol HDL >or= 60 mg/dL High HDL Cholesterol LAB L501.6500 0-130 mg/dL Normal LDL 59 LAB L501.6600 5-40 mg/dL High VLDL 58 Performed By: #### L500.3400, L500.4100 #### [facility] [address] [place], [address] PROGRESS Observed: 12/24/2017 Status: COMPLETED Source: [facility] 11:44 AM [facility] REPOSITORY HNO ID: [id number] Author: Marley Sullivan (Kelsie) Yudelka Service: (none) Author Type: Nurse Practitioner Type: Progress Notes Filed: 12/24/2017 11:48 AM Note Text: This note was created using Reactivity. Subjective Antony Mujica is a 62 year old male. The history is provided by the patient and the spouse. No language tutor was used. URI He complains of cough, shortness of breath, sputum production and wheezing. This is a new problem. The current episode started 1 to 4 weeks ago. The problem occurs constantly. The problem has been gradually worsening. The cough is productive of sputum. Associated symptoms include dyspnea on exertion, malaise/fatigue and myalgias. Pertinent negatives include no appetite change, ear congestion, ear pain, fever, headaches, postnasal drip or sore throat. His symptoms are aggravated by nothing. His symptoms are alleviated by nothing. He reports no improvement on treatment. Ineffective treatments: nyquil. Risk factors: + ill contacts. Review of Systems Constitutional: Positive for malaise/fatigue. Negative for appetite change and fever. HENT: Negative for ear pain, postnasal drip and sore throat. Respiratory: Positive for cough, sputum production, shortness of breath and wheezing. Cardiovascular: Positive for dyspnea on exertion. Musculoskeletal: Positive for myalgias. Neurological: Negative for headaches. Objective BP 126/82 Pulse 88 Temp 36.3 ?C (97.4 ?F) Wt 103.9 kg (229 lb) SpO2 97% BMI 33.82 kg/m? Physical Exam Constitutional: He appears well-developed and well-nourished. No distress. HENT: Head: Normocephalic and atraumatic. Right Ear: External ear normal. Left Ear: External ear normal. Nose: Nose normal. Mouth/Throat: Oropharynx is clear and moist. Eyes: Conjunctivae are normal. Right eye exhibits no discharge. Left eye exhibits no discharge. Neck: Normal range of motion. Neck supple. Cardiovascular: Normal rate, regular rhythm and normal heart sounds. No murmur heard. Pulmonary/Chest: Effort normal. No respiratory distress. He has decreased breath sounds. He has wheezes. He has rales. Moist non-productive cough Lymphadenopathy: Head (right side): No submental, no submandibular, no tonsillar, no preauricular and no posterior auricular adenopathy present. Head (left side): No submental, no submandibular, no tonsillar, no preauricular and no posterior auricular adenopathy present. He has no cervical adenopathy. Skin: Skin is warm, dry and intact. No rash noted. He is not diaphoretic. ASSESSMENT/PLAN: 1. URI, acute - ICD9: 465.9, ICD10: J06.9 - Discussed viral etiology and rationale for treatment. - Symptomatic treatment with prn analgesia - Supportive care with fluids and rest - The patient may also use warm salt water gargles, throat lozenges and/or OTC throat spray as needed and nasal saline gtts and suction prn. - Follow up in one week if symptoms persist or sooner if worsening of symptoms - AZITHROMYCIN 250 MG TABLET - see patient instructions Marley Jha APRN.CNP CNOV Observed: 12/24/2017 Status: COMPLETED Source: [facility] 11:00 AM [facility] REPOSITORY Office Visit (FAMPWS) ANTONY MUJICA ([id number]) 1955 M Date Time Provider Department 12/24/17 11:00 AM MARLEY JHA) BRANDIWS During your visit today, we recorded the following information about you: Temperature Pulse Blood pressure Weight 97.4 degrees 88/minute 126/82 103.9 kg Marley Jha APRN.CNP 12/24/2017 11:37 AM Signed Home going instructions for Upper Respiratory Infections and Sinusitis In General: - Drink lots of fluids - at least one gallon of non-caffeinated liquids per day - Make sure you are eating well - Get plenty of rest - at least 8 hours of sleep per night for adults - ibuprofen 600mg every 8 hours as needed for discomfort - acetaminophen 500mg every 4-6 hours as needed for fever and discomfort. - may alternate ibuprofen and acetaminophen For nasal congestion try: -Vaporizers, Neti Pot, humidifiers, hot showers, and hot fluids help open respiratory and sinus passages. - Frio Nasal [place] may offer relief of nasal and head congestion 2-3 times per day as needed. For Sore Throat try: - Salt water gargles every 2-3 hours as needed for discomfort - Chloraceptic spray or throat lozenges (Cepacol) For Cough and chest congestion try one of the following: - Mucinex or Robitussin are expectorants. You may take 200- 400 mg every 4 hours to a not to exceed 2,400 mg/day OR Extended release tablet: 600-1200 mg every 12 hours, not to exceed 2,400 mg/day - Delsym is a cough suppressant: Oral: 10-20 mg every 4 hours or 30 mg every 6-8 hours OR Extended release: 60 mg twice daily; maximum: 120 mg/day - If you have high blood pressure or hypertension it is safe to take Coricidin? HBP Cough AND Cold. If you smoke it is advised that you quit smoking. CONTACT YOUR DOCTOR IF: 1. You have fevers for longer than five days or a fever more than 102 degrees 2. You are still sick after 10 days 3. After several days you are getting worse rather than better 4. You develop nausea, vomiting, diarrhea, or a rash. Go to the ER if you - experience pressure or pain in your chest - experience difficulty swallowing - experience difficulty breathing Follow up in 7-10 days or before if your symptoms get worse. Marley Jha APRN.CNP [facility] [address] [facility] [address] Marley Jha APRN.KELSIE 12/24/2017 11:48 AM Signed This note was created using [employer]. Subjective Antony Mujica is a 62 year old male. The history is provided by the patient and the spouse. No language tutor was used. URI He complains of cough, shortness of breath, sputum production and wheezing. This is a new problem. The current episode started 1 to 4 weeks ago. The problem occurs constantly. The problem has been gradually worsening. The cough is productive of sputum. Associated symptoms include dyspnea on exertion, malaise/fatigue and myalgias. Pertinent negatives include no appetite change, ear congestion, ear pain, fever, headaches, postnasal drip or sore throat. His symptoms are aggravated by nothing. His symptoms are alleviated by nothing. He reports no improvement on treatment. Ineffective treatments: nyquil. Risk factors: + ill contacts. Review of Systems Constitutional: Positive for malaise/fatigue. Negative for appetite change and fever. HENT: Negative for ear pain, postnasal drip and sore throat. Respiratory: Positive for cough, sputum production, shortness of breath and wheezing. Cardiovascular: Positive for dyspnea on exertion. Musculoskeletal: Positive for myalgias. Neurological: Negative for headaches. Objective BP 126/82 Pulse 88 Temp 36.3 ?C (97.4 ?F) Wt 103.9 kg (229 lb) SpO2 97% BMI 33.82 kg/m? Physical Exam Constitutional: He appears well-developed and well-nourished. No distress. HENT: Head: Normocephalic and atraumatic. Right Ear: External ear normal. Left Ear: External ear normal. Nose: Nose normal. Mouth/Throat: Oropharynx is clear and moist. Eyes: Conjunctivae are normal. Right eye exhibits no discharge. Left eye exhibits no discharge. Neck: Normal range of motion. Neck supple. Cardiovascular: Normal rate, regular rhythm and normal heart sounds. No murmur heard. Pulmonary/Chest: Effort normal. No respiratory distress. He has decreased breath sounds. He has wheezes. He has rales. Moist non-productive cough Lymphadenopathy: Head (right side): No submental, no submandibular, no tonsillar, no preauricular and no posterior auricular adenopathy present. Head (left side): No submental, no submandibular, no tonsillar, no preauricular and no posterior auricular adenopathy present. He has no cervical adenopathy. Skin: Skin is warm, dry and intact. No rash noted. He is not diaphoretic. ASSESSMENT/PLAN: 1. URI, acute - ICD9: 465.9, ICD10: J06.9 - Discussed viral etiology and rationale for treatment. - Symptomatic treatment with prn analgesia - Supportive care with fluids and rest - The patient may also use warm salt water gargles, throat lozenges and/or OTC throat spray as needed and nasal saline gtts and suction prn. - Follow up in one week if symptoms persist or sooner if worsening of symptoms - AZITHROMYCIN 250 MG TABLET - see patient instructions Marley Jha APRN.LAB SCIENTIST Referring Provider: SELF [[id number]] Allergies As of Date: 12/24/2017 Noted Allergy Reaction ENTEX PSE (PSEUDOEPHEDRINE-GUAIFE*11/09/2006 Comments: chest pain Date Reviewed: 12/24/2017 Reviewed by: Marley Sullivan (Kelsie) Yudelka - Fully Assessed Reason for Visit: URI [115] Cmt: cough, runny nose, low grade fever, body aches; Nyquil; has been going on 1 week Primary Visit Diagnosis:URI, acute [J06.9] Order(s):azithromycin (ZITHROMAX Z-LISSETTE) 250 mg tabletTake 2 tablets by mouth day one, then 1 tablet daily until gone.Disp: 1 PackageRfl: 0 Prescriptions as of 12/24/2017 Sig: ONE-A-DAY MEN'S MULTIVITAMIN * Take by mouth once daily. CYCLOBENZAPRINE 10 MG TABLET Take 10 mg by mouth once myranda* PREDNISONE 10 MG TABLET Take 10 mg by mouth once myranda* ROSUVASTATIN 10 MG TABLET Take 10 mg by mouth once myranda* ONDANSETRON HCL ORAL Take by mouth as needed. AMITRIPTYLINE 25 MG TABLET Take 1 tablet by mouth daily * FLUOXETINE 40 MG CAPSULE Take 1 capsule by mouth once * HUMIRA SUBCUTANEOUS Inject subcutaneously every * SILDENAFIL 50 MG TABLET as needed BUSPIRONE 5 MG TABLET Take 1 tablet by mouth three * SUCRALFATE 1 GRAM TABLET TAKE ONE(1) TABLET FOUR(4) TI* RANOLAZINE ER 1,000 MG TABLET* Take 2 tablets by mouth twice* MELOXICAM 15 MG TABLET Take 1 tablet by mouth once d* CARVEDILOL 12.5 MG TABLET Take 6.25 mg by mouth twice d* LEFLUNOMIDE 20 MG TABLET Take 1 tablet by mouth once d* OMEPRAZOLE 40 MG CAPSULE,CLAUDIA* Take 40 mg by mouth once myranda* LISINOPRIL 5 MG TABLET Take one(1) tablet daily. PLAVIX 75 MG TABLET Take one(1) tablet daily. AZITHROMYCIN 250 MG TABLET Take 2 tablets by mouth day o* OXYCODONE-ACETAMINOPHEN 10 MG* Take 1 tablet by mouth every * Problem List As Of Date 12/24/2017 Noted Resolved HYPERLIPIDEMIA NEC/NOS [E78.5] FL INF/POST SUBSEQNT EPISD CARE [I21.19] CORON ATHEROSCL [place] OWINGEH CORON VESSEL [I25.10] Cervical disc disorder with radiculopathy [M50.*INVALID FOR* More... Abdominal Pain [R10.9] INVALID FOR* GERD (gastroesophageal reflux disease) [K21.9] INVALID FOR* More... Rheumatoid arthritis (HCC) [M06.9] INVALID FOR* Depression [F32.9] INVALID FOR* Anxiety [F41.9] INVALID FOR* Osteoporosis [M81.0] INVALID FOR* More... Essential hypertension [I10] INVALID FOR* Vertebral compression fracture (HCC) [M48.50XA] INVALID FOR* DDD (degenerative disc disease), lumbar [M51.36]INVALID FOR* Lumbar radiculopathy [M54.16] INVALID FOR* Other instructions from your clinician: Home going instructions for Upper Respiratory Infections and Sinusitis In General: - Drink lots of fluids - at least one gallon of non-caffeinated liquids per day - Make sure you are eating well - Get plenty of rest - at least 8 hours of sleep per night for adults - ibuprofen 600mg every 8 hours as needed for discomfort - acetaminophen 500mg every 4-6 hours as needed for fever and discomfort. - may alternate ibuprofen and acetaminophen For nasal congestion try: -Vaporizers, Neti Pot, humidifiers, hot showers, and hot fluids help open respiratory and sinus passages. - Frio Nasal [place] may offer relief of nasal and head congestion 2-3 times per day as needed. For Sore Throat try: - Salt water gargles every 2-3 hours as needed for discomfort - Chloraceptic spray or throat lozenges (Cepacol) For Cough and chest congestion try one of the following: - Mucinex or Robitussin are expectorants. You may take 200-400 mg every 4 hours to a not to exceed 2,400 mg/day OR Extended release tablet: 600-1200 mg every 12 hours, not to exceed 2,400 mg/day - Delsym is a cough suppressant: Oral: 10-20 mg every 4 hours or 30 mg every 6-8 hours OR Extended release: 60 mg twice daily; maximum: 120 mg/day - If you have high blood pressure or hypertension it is safe to take Coricidin? HBP Cough AND Cold. If you smoke it is advised that you quit smoking. CONTACT YOUR DOCTOR IF: 1. You have fevers for longer than five days or a fever more than 102 degrees 2. You are still sick after 10 days 3. After several days you are getting worse rather than better 4. You develop nausea, vomiting, diarrhea, or a rash. Go to the ER if you - experience pressure or pain in your chest - experience difficulty swallowing - experience difficulty breathing Follow up in 7-10 days or before if your symptoms get worse. Marley Jha APRN.KELSIE [facility] [address] [facility] [address] Prescriptions ordered this encounter Disp Refills Start End AZITHROMYCIN 250 MG TABLET 1 Pa* 0 12/24/2017 Sig: Take 2 tablets by mouth day one, then 1 tablet daily until gone. Encounter Status:Closed by MARLEY JHA CNP on 12/24/17 COMPREHENSIVE METABOLIC Collected: 12/01/2017 Status: F Source: [facility] 4:39 PM [facility] REPOSITORY TYPE CODE TESTS RESULT OUT OF RANGE REFERENCE UNITS LAB L501.0100 74-106 mg/dL High GLU 131 Result Comment: Fasting Glucose result greater than or equal to 126 mg/dL suggests DIABETES MELLITUS per A.D.A. criteria. Please note revised GLUCOSE reference range effective 2017. LAB L501.1000 7-18 mg/dL High BUN 19 LAB L501.1100 0.70-1.30 mg/dL Normal CREAT,SERUM 0.90 Result Comment: The validity of the calculated GFR AND GFRAA in patients over 70 years has not been determined. Clinical correlation is essential. LAB L501.1110 >60 mL/min Normal EST GFR 91 Result Comment: Non- GFR Calc LAB L501.1115 >60 mL/min Normal EST GFR - AA 111 Result Comment: GFR Calc LAB L501.1300 10-20 RATIO High BUN/CRE 21.1 LAB L501.1500 6.4-8.2 g/dL T Normal PROT 7.3 LAB L501.1800 3.2-5.0 g/dL Normal ALB 3.7 LAB L501.1950 2.2-4.2 g/dL Normal GLOB 3.6 LAB L501.2000 0.9-2.4 RATIO Normal A/G 1.0 LAB L501.2200 8.5-10.1 mg/dL CA Normal 9.5 LAB L501.4100 15-37 U/L Normal AST 23 LAB L501.4305 45-117 U/L High ALK P 149 LAB L501.4405 16-61 U/L Normal ALT 43 LAB L501.4600 0.20-1.00 mg/dL T Normal BILI 0.60 LAB L501.5300 136-145 mmol/L NA Normal 140 LAB L501.5600 3.5-5.1 mmol/L K Normal 3.9 LAB L501.5900 98-107 mmol/L CL Normal 103 LAB L501.6100 21.0-32.0 mmol/L Normal CO2 27.0 LAB L501.6200 5-15 Normal GAP 10 Performed By: #### L500.4050 #### [facility] [place], [address] CBC W/DIFF, AUTOMATED Collected: 12/01/2017 Status: F Source: [place] 4:39 PM [facility] REPOSITORY TYPE CODE TESTS RESULT OUT OF RANGE REFERENCE UNITS LAB L100.1000 4.4-11.0 K/mm3 High WBC 11.2 LAB L100.1200 4.6-6.2 M/mm3 Low RBC 4.44 LAB L100.1300 13.0-16.5 g/dl Normal HGB 14.6 LAB L100.1400 40-54 % Normal HCT 43.1 LAB L100.1500 80-94 fL High MCV 97.1 LAB L100.1600 27.0-32.0 pg High MCH 32.9 LAB L100.1700 32-36 g/gl Normal MCHC 33.9 LAB L100.1810 11.6-14.6 % High RDW CV 14.7 LAB L100.1820 35.1-43.9 fl High RDW SD 51.3 LAB L100.1900 150-450 K/mm3 Normal PLT 225 LAB L100.2000 6.2-12.0 fl Normal MPV 8.6 LAB L100.2100 47-70 % Normal NEUT% 49.5 LAB L100.2200 19-41 % Normal LY% 37.4 LAB L100.2300 0-10 % High MONO% 11.5 LAB L100.2400 0-5 % Normal EO% 0.8 LAB L100.2500 0-1 % Normal BASO% 0.2 LAB L100.2550 0.0-0.9 % Normal IM GRAN % 0.600 Result Comment: IG% - Immature Granulocytes (promyelocytes, myelocytes and metamyelocytes) > 1% indicates that a LEFT SHIFT is Present. LAB L100.2620 2.0-7.7 X10 3/uL Normal Absolute Neut 5.6 LAB L100.2720 0.83-4.51 X10 3/ul Normal Absolute Lymph 4.20 Performed By: #### L100.0100 #### [facility] [address] [place] [address]. [place], [address] PROGRESS Observed: 10/25/2017 Status: COMPLETED Source: [facility] 3:15 PM [facility] REPOSITORY HNO ID: [id number] Author: Tatiana Dan Service: (none) Author Type: Baby Sitter Type: Progress Notes Filed: 10/29/2017 1:02 PM Note Text: Updating HM.Tatiana Dan MA CNPTOUTREACH Observed: 10/25/2017 Status: COMPLETED Source: [facility] 12:00 AM [facility] REPOSITORY Patient Outreach (FAMPWS) ANTONY MUJICA ([id number]) 1955 M Date Time Provider Department 10/25/17 TATIANA DAN) CHANDRAPWS During your visit today, we recorded the following information about you: Tatiana Dan MA 10/29/2017 1:02 PM Signed Updating HM.Tatiana Dan MA Allergies As of Date: 10/25/2017 Noted Allergy Reaction ENTEX PSE (PSEUDOEPHEDRINE-GUAIFE*11/09/2006 Comments: chest pain Date Reviewed: 07/22/2017 Reviewed by: Karla ([facility]) JULIET Hernandez - Fully Assessed Reason for Visit: PHPA/Care Gap Outreach [3605] Order(s):LIPID PANEL - EXTERNAL [4319316] Order #: [id number] LDL CHOLESTEROL DIR [SQLDLDCT] Order #: [id number] GLUCOSE FASTING BLD EXTERNAL QAI [[id number]] Order #: [id number] GLUCOSE FASTING BLD EXTERNAL QAI [[id number]] Order #: [id number] Prescriptions as of 10/25/2017 Sig: ONE-A-DAY MEN'S MULTIVITAMIN * Take by mouth once daily. CYCLOBENZAPRINE 10 MG TABLET Take 10 mg by mouth once myranda* PREDNISONE 10 MG TABLET Take 10 mg by mouth once myranda* ROSUVASTATIN 10 MG TABLET Take 10 mg by mouth once myranda* ONDANSETRON HCL ORAL Take by mouth as needed. AMITRIPTYLINE 25 MG TABLET Take 1 tablet by mouth daily * FLUOXETINE 40 MG CAPSULE Take 1 capsule by mouth once * HUMIRA SUBCUTANEOUS Inject subcutaneously every * SILDENAFIL 50 MG TABLET as needed BUSPIRONE 5 MG TABLET Take 1 tablet by mouth three * SUCRALFATE 1 GRAM TABLET TAKE ONE(1) TABLET FOUR(4) TI* RANOLAZINE ER 1,000 MG TABLET* Take 2 tablets by mouth twice* MELOXICAM 15 MG TABLET Take 1 tablet by mouth once d* CARVEDILOL 12.5 MG TABLET Take 6.25 mg by mouth twice d* LEFLUNOMIDE 20 MG TABLET Take 1 tablet by mouth once d* OXYCODONE-ACETAMINOPHEN 10 MG* Take 1 tablet by mouth every * OMEPRAZOLE 40 MG CAPSULE,CLAUDIA* Take 40 mg by mouth once myranda* LISINOPRIL 5 MG TABLET Take one(1) tablet daily. PLAVIX 75 MG TABLET Take one(1) tablet daily. Problem List As Of Date 10/25/2017 Noted Resolved HYPERLIPIDEMIA NEC/NOS [E78.5] FL INF/POST SUBSEQNT EPISD CARE [I21.19] CORON ATHEROSCL [place] OWING[place] CORON VESSEL [I25.10] Cervical disc disorder with radiculopathy [M50.*INVALID FOR* More... Abdominal Pain [R10.9] INVALID FOR* GERD (gastroesophageal reflux disease) [K21.9] INVALID FOR* More... Rheumatoid arthritis (HCC) [M06.9] INVALID FOR* Depression [F32.9] INVALID FOR* Anxiety [F41.9] INVALID FOR* Osteoporosis [M81.0] INVALID FOR* More... Essential hypertension [I10] INVALID FOR* Vertebral compression fracture (HCC) [YRP9349] INVALID FOR* DDD (degenerative disc disease), lumbar [M51.36]INVALID FOR* Lumbar radiculopathy [M54.16] INVALID FOR* Encounter Status:Closed by TATIANA DAN on 10/29/17 CBC W/DIFF, AUTOMATED Collected: 08/17/2017 Status: F Source: [place] 4:39 PM [facility] REPOSITORY TYPE CODE TESTS RESULT OUT OF RANGE REFERENCE UNITS LAB L100.1000 4.4-11.0 K/mm3 High WBC 13.7 LAB L100.1200 4.6-6.2 M/mm3 Low RBC 3.69 LAB L100.1300 13.0-16.5 g/dl Low HGB 12.6 LAB L100.1400 40-54 % Low HCT 37.7 LAB L100.1500 80-94 fL High MCV 102.2 LAB L100.1600 27.0-32.0 pg High MCH 34.1 LAB L100.1700 32-36 g/gl Normal MCHC 33.4 LAB L100.1810 11.6-14.6 % Normal RDW CV 13.8 LAB L100.1820 35.1-43.9 fl High RDW SD 50.2 LAB L100.1900 150-450 K/mm3 Normal PLT 244 LAB L100.2000 6.2-12.0 fl Normal MPV 8.5 LAB L100.2100 47-70 % Normal NEUT% 54.2 LAB L100.2200 19-41 % Normal LY% 33.1 LAB L100.2300 0-10 % High MONO% 10.8 LAB L100.2400 0-5 % Normal EO% 1.1 LAB L100.2500 0-1 % Normal BASO% 0.2 LAB L100.2550 0.0-0.9 % Normal IM GRAN % 0.600 Result Comment: IG% - Immature Granulocytes (promyelocytes, myelocytes and metamyelocytes) > 1% indicates that a LEFT SHIFT is Present. LAB L100.2620 2.0-7.7 X10 3/uL Normal Absolute Neut 7.4 LAB L100.2720 0.83-4.51 X10 3/ul High Absolute Lymph 4.52 Performed By: #### L100.0100 #### [facility] [address] [place], [address] COMPREHENSIVE METABOLIC Collected: 08/17/2017 Status: F Source: [facility] 4:39 PM [facility] REPOSITORY TYPE CODE TESTS RESULT OUT OF RANGE REFERENCE UNITS LAB L501.0100 74-106 mg/dL High GLU 116 Result Comment: Fasting Glucose result from 100 to 125 mg/dL suggests IMPAIRED HOMEOSTASIS per A.D.A. criteria. Please note revised GLUCOSE reference range effective 2017. LAB L501.1000 7-18 mg/dL Normal BUN 13 LAB L501.1100 0.70-1.30 mg/dL Normal CREAT,SERUM 0.96 Result Comment: The validity of the calculated GFR AND GFRAA in patients over 70 years has not been determined. Clinical correlation is essential. LAB L501.1110 >60 mL/min Normal EST GFR 85 Result Comment: Non- GFR Calc LAB L501.1115 >60 mL/min Normal EST GFR - AA 102 Result Comment: GFR Calc LAB L501.1300 10-20 RATIO Normal BUN/CRE 13.5 LAB L501.1500 6.4-8.2 g/dL T Normal PROT 7.2 LAB L501.1800 3.2-5.0 g/dL Normal ALB 3.6 LAB L501.1950 2.2-4.2 g/dL Normal GLOB 3.6 LAB L501.2000 0.9-2.4 RATIO Normal A/G 1.0 LAB L501.2200 8.5-10.1 mg/dL CA Normal 9.3 LAB L501.4100 15-37 U/L Normal AST 21 LAB L501.4305 45-117 U/L High ALK P 150 LAB L501.4405 16-61 U/L Normal ALT 37 LAB L501.4600 0.20-1.00 mg/dL T Normal BILI 0.30 LAB L501.5300 136-145 mmol/L NA Normal 143 LAB L501.5600 3.5-5.1 mmol/L Low K 3.4 LAB L501.5900 98-107 mmol/L CL Normal 105 LAB L501.6100 21.0-32.0 mmol/L Normal CO2 27.0 LAB L501.6200 5-15 Normal GAP 11 Performed By: #### L500.4050 #### [facility] [address] [place] [address]. [place], [address] PROGRESS Observed: 07/22/2017 Status: COMPLETED Source: [facility] 9:41 AM [facility] REPOSITORY HNO ID: [id number] Author: Dominick Cueto III Service: (none) Author Type: Physician Type: Progress Notes Filed: 07/22/2017 12:22 PM Note Text: SUBJECTIVE: This is a 62 year old male that is here today for pre-op evaluation for back surgery scheduled for tomorrow. Pain LS midline with radiation post LLE to dorsum L foot. Persistent in spite of PT and back injections per Dr Mcpherson. Percoset has eased pain so as to make him more productive/active. 2. known ASHD. s/p inf [place] 2003. Angioplasty 04/2016. No chest pain, angina, PAIZ. 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 known hypertension--previously well controlled. Quit smoking yrs ago PAST MEDICAL HISTORY Diagnosis Date - Acute myocardial infarction of inferoposterior wall, subsequent episode of care (HCC) - Anxiety 04/02/2011 - Atherosclerotic heart disease of [place] coronary artery without angina pectoris - Bilateral extracranial carotid artery stenosis - Bulge of cervical disc without myelopathy 03/23/2014 [facility] - see scanned documents - Disc bulge P-3-M0-C-6-C-7 - Cataract extraction status, right eye 01/18/15 Right eye-Dr. Lin - Coronary atherosclerosis of unspecified type of vessel, [place] or graft 2 coronary artery stents - Depression 04/02/2011 - Essential hypertension, benign - Fibromyalgia 12/02/2010 - GERD (gastroesophageal reflux disease) 07/15 by EGD - Ischemic cardiomyopathy - Nausea - Osteoporosis 03/19/2014 [facility] - see scanned documents - Other and unspecified hyperlipidemia - Pure hypercholesterolemia - Rheumatoid arthritis(714.0) 12/02/2010 Current Outpatient Prescriptions on File Prior to Visit: amitriptyline (ELAVIL) 25 mg tablet Take 1 tablet by mouth daily at bedtime. FLUoxetine HCl (PROZAC) 40 mg capsule Take 1 capsule by mouth once daily. ADALIMUMAB (HUMIRA SUBCUTANEOUS) Inject subcutaneously every 2 weeks. sildenafil (VIAGRA) 50 mg tablet as needed busPIRone (BUSPAR) 5 mg tablet Take 1 tablet by mouth three times daily. sucralfate (CARAFATE) 1 gram tablet TAKE ONE(1) TABLET FOUR(4) TIMES DAILY 1HOUR BEFORE MEALS AND AT BEDTIME. PRN ranolazine SR (RANEXA) 1,000 mg Tb12 Take 2 tablets by mouth twice daily. meloxicam 15 mg tablet Take 1 tablet by mouth once daily. Take with food. carvedilol (COREG) 12.5 mg tablet Take 6.25 mg by mouth twice daily with meals. leflunomide (ARAVA) 20 mg tablet Take 1 tablet by mouth once daily. oxyCODONE-acetaminophen 10 mg - 325 mg (PERCOCET) 10-325 mg ORAL per tablet Take 1 tablet by mouth every 6 hours as needed. FOR PAIN. Omeprazole (PRILOSEC) 40 mg ORAL capsule Take 40 mg by mouth once daily. lisinopril (PRINIVIL) 5 mg ORAL tablet Take one(1) tablet daily. clopidogrel bisulfate(PLAVIX 75 MG TAB) Take one(1) tablet daily. No current facility-administered medications on file prior to visit. FAMILY HISTORY Problem Relation Age of Onset - Diabetes Father - Heart Father - Heart Mother - Diabetes Mother - Alcohol/Drug Sister Social History Substance Use Topics - Smoking status: Former Smoker Packs/day: 0.75 Years: 25.00 Quit date: 03/07/2004 - Smokeless tobacco: Never Used Comment: quit 2003 - Alcohol use No BP 174/104 Pulse 84 Resp 18 Wt 104.8 kg (231 lb) BMI 34.11 kg/m? . OBJECTIVE: APPEARANCE Well appearing, alert, in no acute distress, well-hydrated, well nourished., walking with cane NECK Supple, no adenopathy; thyroid symmetric, normal size, no bruits HEART RRR with normal S1 and S2, no murmurs, no gallops, no JVD appreciated LUNG clear to auscultation ASSESSMENT: ASHD--stable hypertension--exacerbated by stress and pain--poor control degenerative LS spine disease with L lumbar radiculopathy Patient is in optimal condition to proceed with the planned surgery PLAN: lisinopril 10mg today same other medications proceed to surgery as planned RUSSELL Simon MD, III MD CNOV Observed: 07/22/2017 Status: COMPLETED Source: [facility] 9:20 AM [facility] REPOSITORY [facility] VIVIANANTONY MEDRANO ([id number]) 1955 M Date Time Provider Department 07/22/17 9:20 AM DOMINICK CUETO III During your visit today, we recorded the following information about you: Pulse Respiration Blood pressure Weight 84/minute 18/minute 174/104 104.8 kg Dominick Cueto III MD 07/22/2017 12:22 PM Signed SUBJECTIVE: This is a 62 year old male that is here today for pre-op evaluation for back surgery scheduled for tomorrow. Pain LS midline with radiation post LLE to dorsum L foot. Persistent in spite of PT and back injections per Dr Mcpherson. Percoset has eased pain so as to make him more productive/active. 2. known ASHD. s/p inf [place] 2003. Angioplasty 04/2016. No chest pain, angina, PAIZ. 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 known hypertension--previously well controlled. Quit smoking yrs ago PAST MEDICAL HISTORY Diagnosis Date - Acute myocardial infarction of inferoposterior wall, subsequent episode of care ([facility]) - Anxiety 04/02/2011 - Atherosclerotic heart disease of [place] coronary artery without angina pectoris - Bilateral extracranial carotid artery stenosis - Bulge of cervical disc without myelopathy 03/23/2014 [facility] - see scanned documents - Disc bulge [id number] - Cataract extraction status, right eye 01/18/15 Right eye-Dr. Lin - Coronary atherosclerosis of unspecified type of vessel, [place] or graft 2 coronary artery stents - Depression 04/02/2011 - Essential hypertension, benign - Fibromyalgia 12/02/2010 - GERD (gastroesophageal reflux disease) 07/15 by EGD - Ischemic cardiomyopathy - Nausea - Osteoporosis 03/19/2014 [facility] - see scanned documents - Other and unspecified hyperlipidemia - Pure hypercholesterolemia - Rheumatoid arthritis(714.0) 12/02/2010 Current Outpatient Prescriptions on File Prior to Visit: amitriptyline (ELAVIL) 25 mg tablet Take 1 tablet by mouth daily at bedtime. FLUoxetine HCl (PROZAC) 40 mg capsule Take 1 capsule by mouth once daily. ADALIMUMAB (HUMIRA SUBCUTANEOUS) Inject subcutaneously every 2 weeks. sildenafil (VIAGRA) 50 mg tablet as needed busPIRone (BUSPAR) 5 mg tablet Take 1 tablet by mouth three times daily. sucralfate (CARAFATE) 1 gram tablet TAKE ONE(1) TABLET FOUR(4) TIMES DAILY 1HOUR BEFORE MEALS AND AT BEDTIME. PRN ranolazine SR (RANEXA) 1,000 mg Tb12 Take 2 tablets by mouth twice daily. meloxicam 15 mg tablet Take 1 tablet by mouth once daily. Take with food. carvedilol (COREG) 12.5 mg tablet Take 6.25 mg by mouth twice daily with meals. leflunomide (ARAVA) 20 mg tablet Take 1 tablet by mouth once daily. oxyCODONE-acetaminophen 10 mg - 325 mg (PERCOCET) 10-325 mg ORAL per tablet Take 1 tablet by mouth every 6 hours as needed. FOR PAIN. Omeprazole (PRILOSEC) 40 mg ORAL capsule Take 40 mg by mouth once daily. lisinopril (PRINIVIL) 5 mg ORAL tablet Take one(1) tablet daily. clopidogrel bisulfate(PLAVIX 75 MG TAB) Take one(1) tablet daily. No current facility-administered medications on file prior to visit. FAMILY HISTORY Problem Relation Age of Onset - Diabetes Father - Heart Father - Heart Mother - Diabetes Mother - Alcohol/Drug Sister Social History Substance Use Topics - Smoking status: Former Smoker Packs/day: 0.75 Years: 25.00 Quit date: 03/07/2004 - Smokeless tobacco: Never Used Comment: quit 2003 - Alcohol use No BP 174/104 Pulse 84 Resp 18 Wt 104.8 kg (231 lb) BMI 34.11 kg/m? . OBJECTIVE: APPEARANCE Well appearing, alert, in no acute distress, well- hydrated, well nourished., walking with cane NECK Supple, no adenopathy; thyroid symmetric, normal size, no bruits HEART RRR with normal S1 and S2, no murmurs, no gallops, no JVD appreciated LUNG clear to auscultation ASSESSMENT: ASHD--stable hypertension--exacerbated by stress and pain--poor control degenerative LS spine disease with L lumbar radiculopathy Patient is in optimal condition to proceed with the planned surgery PLAN: lisinopril 10mg today same other medications proceed to surgery as planned RUSSELL Simon MD, III MD Frank A Cebul, III MD 07/22/2017 9:54 AM Signed PLAN: lisinopril 10mg today same other medications proceed to surgery as planned Dominick Cueto III MD Referring Provider: SELF [200] Allergies As of Date: 07/22/2017 Noted Allergy Reaction ENTEX PSE (PSEUDOEPHEDRINE-GUAIFE*11/09/2006 Comments: chest pain Date Reviewed: 07/22/2017 Reviewed by: Karla ([facility]) JULIET Hernandez - Fully Assessed Reason for Visit: Medication Follow-up [270] Primary Visit Diagnosis:Atherosclerosis of [place] coronary artery of [place] heart without angina pectoris [I25.10] Other Visit Diagnoses:Essential hypertension [I10] Anxiety [F41.9] DDD (degenerative disc disease), lumbar [M51.36] Lumbar radiculopathy [M54.16] Prescriptions as of 07/22/2017 Sig: ONE-A-DAY MEN'S MULTIVITAMIN * Take by mouth once daily. CYCLOBENZAPRINE 10 MG TABLET Take 10 mg by mouth once myranda* PREDNISONE 10 MG TABLET Take 10 mg by mouth once myranda* ROSUVASTATIN 10 MG TABLET Take 10 mg by mouth once myranda* ONDANSETRON HCL ORAL Take by mouth as needed. AMITRIPTYLINE 25 MG TABLET Take 1 tablet by mouth daily * FLUOXETINE 40 MG CAPSULE Take 1 capsule by mouth once * HUMIRA SUBCUTANEOUS Inject subcutaneously every * SILDENAFIL 50 MG TABLET as needed BUSPIRONE 5 MG TABLET Take 1 tablet by mouth three * SUCRALFATE 1 GRAM TABLET TAKE ONE(1) TABLET FOUR(4) TI* RANOLAZINE ER 1,000 MG TABLET* Take 2 tablets by mouth twice* MELOXICAM 15 MG TABLET Take 1 tablet by mouth once d* CARVEDILOL 12.5 MG TABLET Take 6.25 mg by mouth twice d* LEFLUNOMIDE 20 MG TABLET Take 1 tablet by mouth once d* OXYCODONE-ACETAMINOPHEN 10 MG* Take 1 tablet by mouth every * OMEPRAZOLE 40 MG CAPSULE,CLAUDIA* Take 40 mg by mouth once myranda* LISINOPRIL 5 MG TABLET Take one(1) tablet daily. PLAVIX 75 MG TABLET Take one(1) tablet daily. Problem List As Of Date 07/22/2017 Noted Resolved HYPERLIPIDEMIA NEC/NOS [E78.5] [place] INF/POST SUBSEQNT EPISD CARE [I21.19] CORON ATHEROSCL [place] OWING[place] CORON VESSEL [I25.10] Cervical disc disorder with radiculopathy [M50.*INVALID FOR* More... Abdominal Pain [R10.9] INVALID FOR* GERD (gastroesophageal reflux disease) [K21.9] INVALID FOR* More... Rheumatoid arthritis (HCC) [M06.9] INVALID FOR* Depression [F32.9] INVALID FOR* Anxiety [F41.9] INVALID FOR* Osteoporosis [M81.0] INVALID FOR* More... Essential hypertension [I10] INVALID FOR* Vertebral compression fracture (HCC) [M48.50XA] INVALID FOR* DDD (degenerative disc disease), lumbar [M51.36]INVALID FOR* Lumbar radiculopathy [M54.16] INVALID FOR* Other instructions from your clinician: PLAN: lisinopril 10mg today same other medications proceed to surgery as planned Dominick Cueto III Medications Discontinued During This Encounter oxyCODONE myristate (XTAMPZA ER) 13.* 07/22/2017 Class: Historical Med Route: ORAL Sig: Take 13.5 mg by mouth three times daily. Disc: Side Effects Encounter Status:Closed by DOMINICK CUETO III, MD on 07/22/17 INITAL EVALUATION (1) Observed: 07/07/2017 Status: F Source: [place] - PT 7:03 PM [facility] REPOSITORY [facility] [address] [place], [place] [id number] Fax REHABILITATION SERVICES INITIAL EVALUATION MR#: [id number] Acct: [id number] Name: ANTONY MUJICA Rep #: [id number] : 1955 62 From: Olga Lidia Merida MPT Referring Dr.: Iron Mcpherson MD Status: REG RCR Insurance: [facility] [employer] MEDIC[facility] PART A B Patient's Visit Information ANTONY MUJICA is a 62 year old M referred to Physical Therapy by Iron Mcpherson with a diagnosis of Back and Leg pain. Date of Evaluation: 07/05/17 Physical Therapist: Olga Lidia Merida - Visit Plan Frequency: 2x /Week Duration: 4 Weeks Plan: 2X/ week for 4 weeks for AT for core stability, LE strengthening, gait training, functional mobility with HEP. (Pt will be having surgery July 23, 2017) - Subjective Subjective: Pt reports that he is having back pain. He is having surgery July 23 so he is not sure why the Dr sent him up here. He used to get injectins from [employer] and for awhile they have worked (8 years) and in the last year or so the injections have not been lasting as long and now not at all. He is trying to get out every day and do something to try and stay moving. He is in a lot of pain. He had an MRI and x-ray and the surgeon is going to fuse 2 vertebrea together (Dr. Carrie Sauceda). He feels that he has leg weakness. He has been using a cane off and on the last 4-5 months. He has gone down without the can a few times due to pain. He can't sleep cause of the back pain ( maybe 4=5 hours a night). He has a stationary bike at home that he uses at home but doesnt get carried away with it. - Pain back pain Pain Intensity (Out of 10): 8 L Leg pain Pain Intensity (Out of 10): 8 - Objective Trunk AROM: flexion 75%, ext 25%, SB 50% B. Gait: decrease stance time on the L LE, WBOS. Able to heel and toe raise using UE support. LE MMT: hip flex R 4/5, L 4-/5, knee ext L 3-/5 and R 4/5, knee flex R 4/5 and L 3+/5, hip abd L 4-/5 and R 4/5, Bridge 50% normal ROM,. +SLR on the L, + SLUMP test on the L - Goals Goal 1:: I HEP/water rountine Goal Time Frame: 4-6 Weeks Goal 2:: Decrease back pain to 6/10 with ADL's Goal Time Frame: 4-6 Weeks Goal 3:: Sit with upright posture during treatment sessions Goal Time Frame: 4-6 Weeks - Rehabilitation Potential Rehabilitation Potential: Good - Anticipated Interventions Patient/Client Instruction: Educate patient on: Plan of Care For the Purpose of:: To decrease pain, To increase ROM, To improve nutrient delivery to tissue, To improve muscle performance and motor function, To improve ability to perform ADL's, To increase tolerance to activity/condition/position Therapeutic Exercise to Include: Strength training, Postural training, Flexibilty training, Gait and locomotor training, In an aquatic setting, Active ROM, Dynamic Lumbar Stabilization, Scapular Strength/Stabilization For the Purpose of:: To decrease pain, To decrease swelling/inflammation, To increase ROM, To improve nutrient delivery to tissue, To improve muscle performance and motor function, To improve ability to perform ADL's, To increase tolerance to activity/condition/position, To improve performance and independence with ADL's Thank you for the opportunity to evaluate your patient. For Medicare and Medicare HMO plans, please review the plan of care and approve it. It will need to be FAXED BACK to us at [phone] for Medicare purposes. Please let me know if there are questions or concerns regarding this plan of care. Physician Signature: Date: <Electronically signed by Olga Lidia Merida MPT> 07/07/17 1903 CC: Iron Mcpherson MD; Dominick Cueto III, MD Signed For Medicare only, by signing this I certify the plan of care. Physicians Signature Date CNPTOUTREACH Observed: 07/06/2017 Status: COMPLETED Source: [facility] 12:00 AM [facility] REPOSITORY Patient Outreach ([facility]) ANTONY MUJICA ([id number]) 1955 M Date Time Provider Department 07/06/17 DOMINICK CUETO III [facility] During your visit today, we recorded the following information about you: Allergies As of Date: 07/06/2017 Noted Allergy Reaction ENTEX PSE (PSEUDOEPHEDRINE-GUAIFE*11/09/2006 Comments: chest pain Date Reviewed: 05/07/2017 Reviewed by: Karla ([facility]) JULIET Hernandez - Fully Assessed Visit Diagnosis:Medication management [Z79.899] Order(s):BASIC METABOLIC PNL [SQBMP] Order #: [id number] FUTURE LIPID PANEL BASIC [SQLIPB] Order #: [id number] FUTURE Prescriptions as of 07/06/2017 Sig: AMITRIPTYLINE 25 MG TABLET Take 1 tablet by mouth daily * X OXYCODONE ER 13.5 MG CAPSULE * Take 13.5 mg by mouth three t* FLUOXETINE 40 MG CAPSULE Take 1 capsule by mouth once * HUMIRA SUBCUTANEOUS Inject subcutaneously every * SILDENAFIL 50 MG TABLET as needed BUSPIRONE 5 MG TABLET Take 1 tablet by mouth three * SUCRALFATE 1 GRAM TABLET TAKE ONE(1) TABLET FOUR(4) TI* RANOLAZINE ER 1,000 MG TABLET* Take 2 tablets by mouth twice* MELOXICAM 15 MG TABLET Take 1 tablet by mouth once d* CARVEDILOL 12.5 MG TABLET Take 6.25 mg by mouth twice d* LEFLUNOMIDE 20 MG TABLET Take 1 tablet by mouth once d* OXYCODONE-ACETAMINOPHEN 10 MG* Take 1 tablet by mouth every * OMEPRAZOLE 40 MG CAPSULE,CLAUDIA* Take 40 mg by mouth once myranda* LISINOPRIL 5 MG TABLET Take one(1) tablet daily. PLAVIX 75 MG TABLET Take one(1) tablet daily. Problem List As Of Date 07/06/2017 Noted Resolved HYPERLIPIDEMIA NEC/NOS [E78.5] [place] INF/POST SUBSEQNT EPISD CARE [I21.19] CORON ATHEROSCL [place] OW[place] CORON VESSEL [I25.10] Cervical disc disorder with radiculopathy [M50.*INVALID FOR* More... Abdominal Pain [R10.9] INVALID FOR* GERD (gastroesophageal reflux disease) [K21.9] INVALID FOR* More... Rheumatoid arthritis (HCC) [M06.9] INVALID FOR* Depression [F32.9] INVALID FOR* Anxiety [F41.9] INVALID FOR* Osteoporosis [M81.0] INVALID FOR* More... Essential hypertension [I10] INVALID FOR* Vertebral compression fracture (HCC) [M48.50XA] INVALID FOR* Encounter Status:Closed by HUA MAGANAUSER on 12/17/17 CARDIOLOGY VISIT Observed: 06/18/2017 Status: F Source: [place] REPORT 2:41 PM [facility] REPOSITORY [facility] [address] [place] [address]. [address] [place] [address] OFFICE VISIT Date of Service: 06/18/17 MR#: [id number] Acct: [id number] Name: ANTONY MUJICA Rep #: [id number] : 1955 Provider: AZEEM Lewis Age/Sex: 62/M Location: [facility] Status: Signed HPI HPI Details: ANTONY MUJICA, is a 62 M who presents to the office today for a cardiovascular outpatient follow-up. He has a history of coronary artery disease disease status post bypass surgery in 2003 with an JOHN to LAD, SVG to ramus intermedius, SVG to LCx, and SVG to RCA. He also underwent drug-eluting stent to proximal RCA, mid RCA, and distal RCA in April 2016. He also has history of hypertension, hyperlipidemia, arthritis, degenerative joint disease, and fibromyalgia. He was recently seen in the ED for back pain. He had an follow- up MRI and will be undergoing surgery with the [facility] Dr. Po Sauceda on July 23. Pt denies chest, arm, jaw, or neck discomfort. His exercise tolerance is stable via walking and stationary bike twos a day. Pt denies symptoms of CHF, palpitations, lightheadedness, dizziness, near syncopal or syncopal episodes. Pt denies edema or claudication issues. Pt. denies orthopnea, PND, fever, chills, blood in urine, blood in stool, myalgia, or unexplainable fatigue. Intake Vital Signs06/18/17 Height 5 ft 8 in 06/18/17 Weight: 232 lb 06/18/17 Body Mass Index (BMI) 35.2 06/18/17 Blood Pressure 138/84 Intake Visit Reasons: 6 M FU Branch Operation Evaluation Manager Required: No Accompanied by: none Is patient in pain?: No Allergies No Known Allergies Allergy (Verified 06/18/17 10:08) Medications Carvedilol [Coreg (Beta Marlene)] 6.25 mg PO BID 07/03/14 [History Confirmed 05/12/17] Clopidogrel Bisulfate [Plavix] 75 mg PO QHS 07/03/14 [History Confirmed 05/12/17] Fluoxetine HCl 40 mg PO QHS 07/03/14 [History Confirmed 05/12/17] Leflunomide [Arava] 20 mg PO QHS 07/03/14 [History Confirmed 05/12/17] Lisinopril [Zestril] 5 mg PO QHS 07/03/14 [History Confirmed 05/12/17] Meloxicam [Mobic] 15 mg PO QHS 07/03/14 [History Confirmed 05/12/17] Omeprazole [Prilosec] 40 mg PO QHS 07/03/14 [History Confirmed 05/12/17] Ranolazine [Ranexa] 1,000 mg PO BID 07/03/14 [History Confirmed 05/12/17] Adalimumab [Humira] 40 mg SQ Q14D 04/14/16 [History Confirmed 05/12/17] Aspirin E.C. [Ecotrin] 81 mg PO DAILY@0800 #0 tab 04/15/16 [Rx Confirmed 05/12/17] nitroglycerin 0.4 mg sublingual tablet 0.4 mg SUBLINGUAL Q5M PRN 05/12/17 [History Confirmed 05/12/17] rosuvastatin 10 mg tablet 10 mg PO QDAY #90 tab 06/18/17 [Rx Confirmed 06/18/17] Ejection fraction %: 50 to 54 PFSH Medical History Bilateral carotid artery stenosis (Chronic) Atherosclerotic heart disease of [place] coronary artery without angina pectoris (Chronic) Old myocardial infarction (Chronic) Ischemic cardiomyopathy (Chronic) correction use of drug (Chronic) Rheumatoid arthritis (Chronic) Coronary artery disease (Chronic) Carotid stenosis, right (Chronic) CVA (cerebral vascular accident) (Acute) Hyperlipidemia (Chronic) HTN (hypertension) (Chronic) Surgical History Aortocoronary bypass status (Chronic) Status post angioplasty with stent (Chronic) Family History Father CAD (coronary artery disease) Diabetes Social History Smoking Status: Former smoker alcohol intake: never substance use type: does not use caffeine: Yes Type: coffee Number of servings: 2 what type of physical activity do you participate in: walking, bicycling frequency: daily duration: 60-90 minutes/day seatbelt use: always do you feel safe at home: Yes ROS Const Const: Negative for fatigue, weakness, body ache, fever(s) or chills ENT ENT: Negative for dizziness Cardio Chest Pain: No Palpitations: No Edema: None Muscle aches with walking: None Resp Respiratory: Negative for SOB with activity, SOB at rest, SOB orthopnea\SOB lying down or paroxysmal nocturnal dyspnea GI GI: Negative nausea, black,tarry stools, bright, red blood in stools or vomiting blood/hematemesis : Negative for hematuria or frequent nighttime urination/ nocturia Musc Musc: Negative for muscle aches/ myalgia Neuro Neuro: Negative for weakness, dizziness, lightheadedness, near syncope, syncope or orthostatic symptoms Endo Endo: Negative for fatigue Cardiology Exam Const Appearance: cooperative, healthy appearing, comfortable and no acute distress Orientation: alert, awake and oriented x3 Head Head: normal to inspection Mouth: oral mucosae normal Neck Neck: no JVD and normal visual inspection Carotids: normal carotid upstroke Chest Chest inspection: normal inspection of the chest and normal respiratory effort Auscultation: Bilateral: Clear to Auscultation Cardio Rate: regular rate Rhythm: regular rhythm Heart sounds: S1 normal and S2 normal; negative rub or gallop GI GI: normal to inspection Neuro General: alert, awake, oriented x3 and CN's II-XI intact bilaterally Skin Skin: no rashes or lesions noted Extremities Pulses: Normal: Right Posterior Tibial Pulse, Left Posterior Tibial Pulse, Right Radial Pulse, Left Radial Pulse Lower Extremity Edema: None: Bilateral Psych Psychological: normal affect Supplemental Info Echocardiogram from April 2016 showed estimated ejection fraction of 50%, trivial mitral valve insufficiency, mild tricuspid valve insufficiency, and an RVSP of 24 mmHg. Heart catheterization from April 2016 showed total occlusion of [place] mid LAD, JOHN graft LAD patent, total occlusion of proximal LCx, vein graft to obtuse marginal patent, 60% proximal RCA disease, 60-70% in-stent restenosis of mid RCA, and 67% of distal RCA, vein graft RCA 100% occluded, and about 90% lesion in a very small posterior lateral ventricular branch. Carotid duplex ultrasound from April 2016 showed partially calcified plaque proximal right internal carotid with undulating plaque, definitive ulceration not seen, and less than 50%, mild disease right external carotid artery, mild calcified plaque at the proximal left internal carotid with less than 50% stenosis, normal flow left external carotid, and patent antegrade vertebrals bilaterally Assessment AND Plan 1. Atherosclerosis of [place] coronary artery of [place] heart without angina pectoris I25.10 CABG X 5 on 05/09, Lt IT to LAD, SVG to RI, 1st Diag. of LAD, SVG to CFX, RCA; drug-eluting stent to RCA, mid RCA, and distal RCA in April 2016; Plan - MAGED Wade EKG in office showed sinus rhythm at a rate of 93 bpm. Patient denies any chest pain, arm pain, jaw pain, neck pain, shortness of breath, or fatigue suggestive of angina at this time. We will continue to monitor this. We will not make any medication regimen changes and will continue risk factor modification. Orders Orders: 2. Ischemic cardiomyopathy I25.5 MAGED Schroeder Patient's echocardiogram from April 2016 showed an estimated ejection fraction of 50%. Patient denies any shortness of breath or lower extremity pedal edema. His activity level has remained stable. We will continue to monitor this. He will continue beta-marlene and GISSEL inhibitor. 3. Essential hypertension I10 MAGED Schroeder Patient's blood pressure is well-controlled today in the office. We will continue to monitor this. We will not make any medication regimen changes. 4. Pure hypercholesterolemia E78.00; E78.0 MAGED Schroeder Patient's most recent lipid panel from May showed cholesterol: 228, HDL: 44, LDL: 139, and triglycerides: 223. Patient stopped statin medication due to making him feel ill. He has been on Crestor in the past without issue. He will resume Crestor and repeat liver and lipid panel in approximately 4-6 months. 5. Bilateral carotid artery stenosis I65.23 MAGED Schroeder Carotid duplex ultrasound from April 2016 showed less than 50% stenosis of both right and left internal carotid. Patient continue current medications. He will begin Crestor as outlined above. 6. Pre-op examination Z01.818 Plan MAGED Weir Patient will be undergoing back surgery by Dr. Po Sauceda of [facility] in July 2017. Patient is greater than 1 year since stenting to RCA. He will be able to disrupt both aspirin Plavix approximately 5-7 days prior to surgery. He should continue with beta-marlene prior, during, and after surgery. He is without any cardiac complaints. He should resume both aspirin and Plavix as soon as medically cleared by surgery team. Plan Detail Other Orders Orders: Other Medications New: Discontinued: Additional Comments - MAGED Wade Discussed the above patient with Dr. Johnson, he agrees with the plan of care. Thank you for allowing us to participate in the patients plan of care, if you have any questions please do not hesitate to call. This note was generated using a voice recognition system and there may be incorrect words, spelling or punctuation that were not noted when reviewing the office note prior to saving. Follow Up 6 Months (GUM REMOVER) Coding Level of Care Code Off vis,est,level 3 Diagnoses Atherosclerosis of [place] coronary artery of [place] heart without angina pectoris I25.10 [place] vs. transplanted heart: [place] heart Ischemic cardiomyopathy I25.5 Essential hypertension I10 Hypertension type: essential hypertension Pure hypercholesterolemia E78.00; E78.0 Hyperlipidemia type: pure hypercholesterolemia Bilateral carotid artery stenosis I65.23 Pre-op examination Z01.818 Coding Level of Care Code Off vis,est,level 3 Diagnoses Atherosclerosis of [place] coronary artery of [place] heart without angina pectoris I25.10 [place] vs. transplanted heart: [place] heart Ischemic cardiomyopathy I25.5 Essential hypertension I10 Hypertension type: essential hypertension Pure hypercholesterolemia E78.00; E78.0 Hyperlipidemia type: pure hypercholesterolemia Bilateral carotid artery stenosis I65.23 Pre-op examination Z01.818 06/18/17 1356 <Electronically signed by Bunny Lewis TECHNICAL WRITER AND EDITOR-C> Date Bunny Lewis TECHNICAL WRITER AND EDITOR-C 06/18/17 1441<Electronically signed by Charlie Johnson MD> Cosigner Signature: Date (if applicable) Charlie Johnson MD CC: Dominick Cueto III, MD; CARRIE SAUCEDA 12 LEAD EKG PERFORMED Observed: 06/18/2017 Status: F Source: [place] BY [facility] 10:04 AM [facility] REPOSITORY [facility] [address] [place] [address] 12 Lead E[address] performed [address] [facility] 06/18/17 1003 MR#: [id number] Acct: [id number] Name: ANTONY MUJICA Rep #: [id number] : 1955 62 From: Bunny Lewis TECHNICAL WRITER AND EDITOR-C Attending Dr: Bunny Lewis NP Status: DEP AMB Ordering Dr: Bunny Lewis Date: 06/18/17 Location[place] [facility] [place] Sex: M C Admitted: [facility]/12 Lead EKG performed by [facility] ECG Report Interpretation Sinus Rhythm - (age undetermined) Extensive anterior-lateral and Old Inferior infarct -Prominent R(V1) -true posterior extension of inferior FL -Left axis -may be secondary to infarct -Possible anterior fascicular block. ABNORMAL Electronically signed on 06/22/2017 at 08:51 by Charlie Johnson 06/22/17 0857 Date Bunny Lewis TECHNICAL WRITER AND EDITOR-C CC: Dominick Cueto III, MD Date Dictated: 06/18/171002 Date Transcribed: 06/18/171002 Account Manager Relief: JUAN DIEGO Signed CBC W/DIFF, AUTOMATED Collected: 05/17/2017 Status: F Source: [place] 6:18 AM [facility] REPOSITORY TYPE CODE TESTS RESULT OUT OF RANGE REFERENCE UNITS LAB L100.1000 4.4-11.0 K/mm3 Normal WBC 10.3 LAB L100.1200 4.6-6.2 M/mm3 Low RBC 4.00 LAB L100.1300 13.0-16.5 g/dl Normal HGB 13.4 LAB L100.1400 40-54 % Normal HCT 40.3 LAB L100.1500 80-94 fL High MCV 100.8 LAB L100.1600 27.0-32.0 pg High MCH 33.5 LAB L100.1700 32-36 g/gl Normal MCHC 33.3 LAB L100.1810 11.6-14.6 % Normal RDW CV 14.3 LAB L100.1820 35.1-43.9 fl High RDW SD 52.3 LAB L100.1900 150-450 K/mm3 Normal PLT 215 LAB L100.2000 6.2-12.0 fl Normal MPV 8.5 LAB L100.2100 47-70 % Normal NEUT% 57.7 LAB L100.2200 19-41 % Normal LY% 28.3 LAB L100.2300 0-10 % High MONO% 12.4 LAB L100.2400 0-5 % Normal EO% 0.8 LAB L100.2500 0-1 % Normal BASO% 0.2 LAB L100.2550 0.0-0.9 % Normal IM GRAN % 0.600 Result Comment: IG% - Immature Granulocytes (promyelocytes, myelocytes and metamyelocytes) > 1% indicates that a LEFT SHIFT is Present. LAB L100.2620 2.0-7.7 X10 3/uL Normal Absolute Neut 5.9 LAB L100.2720 0.83-4.51 X10 3/ul Normal Absolute Lymph 2.91 Performed By: #### L100.0100 #### [facility] [address] [place], [address] COMPREHENSIVE METABOLIC Collected: 05/17/2017 Status: F Source: [facility] 6:17 AM [facility] REPOSITORY Order Comment: CMP AND CBCD FOR COSMO Order Date: 07/06/16 Order Info: [id number] - *Hepatic Function Panel Order Info: [id number] - *Lipid Profile CC PCP Comments: 12 hours fasting, may have water. TYPE CODE TESTS RESULT OUT OF RANGE REFERENCE UNITS LAB L501.0100 74-106 mg/dL Normal GLU 97 Result Comment: Please note revised GLUCOSE reference range effective 2017. LAB L501.1000 7-18 mg/dL Normal BUN 16 LAB L501.1100 0.70-1.30 mg/dL Low CREAT,SERUM 0.60 Result Comment: The validity of the calculated GFR AND GFRAA in patients over 70 years has not been determined. Clinical correlation is essential. LAB L501.1110 >60 mL/min Normal EST GFR 145 Result Comment: Non- GFR Calc LAB L501.1115 >60 mL/min Normal EST GFR - AA 175 Result Comment: GFR Calc LAB L501.1300 10-20 RATIO High BUN/CRE 26.5 LAB L501.1500 6.4-8.2 g/dL T Normal PROT 7.1 LAB L501.1800 3.2-5.0 g/dL Normal ALB 3.2 LAB L501.1950 2.2-4.2 g/dL Normal GLOB 3.9 LAB L501.2000 0.9-2.4 RATIO Low A/G 0.8 LAB L501.2200 8.5-10.1 mg/dL CA Normal 8.9 LAB L501.4100 15-37 U/L Normal AST 17 LAB L501.4305 45-117 U/L High ALK P 132 LAB L501.4405 16-61 U/L Normal ALT 33 Result Comment: Please note revised ALT reference range effective 2017. LAB L501.4600 0.20-1.00 mg/dL Normal T BILI 0.40 LAB L501.5300 136-145 mmol/L Normal NA 140 LAB L501.5600 3.5-5.1 mmol/L Normal K 4.2 LAB L501.5900 98-107 mmol/L Normal CL 105 LAB L501.6100 21.0-32.0 mmol/L Normal CO2 28.0 LAB L501.6200 5-15 Normal GAP 7 Performed By: #### L500.4050, L501.4700 #### [facility] [address] [facility] [place], [place], [address] BILIRUBIN, DIRECT Collected: 05/17/2017 Status: F Source: [place] 6:17 AM [facility] REPOSITORY Order Comment: CMP AND CBCD FOR COSMO Order Date: 07/06/16 Order Info: [id number] - *Hepatic Function Panel Order Info: [id number] - *Lipid Profile CC PCP Comments: 12 hours fasting, may have water. TYPE CODE TESTS RESULT OUT OF RANGE REFERENCE UNITS LAB L501.4700 0.00-0.30 mg/dL Normal D BILI 0.07 Performed By: #### L500.4050, L501.4700 #### [facility] [address] [facility] [place], [address] LIPID PROFILE Collected: 05/17/2017 Status: F Source: [place] 6:17 AM [facility] REPOSITORY Order Comment: CMP AND CBCD FOR COSMO Order Date: 07/06/16 Order Info: [id number] - *Hepatic Function Panel Order Info: [id number] - *Lipid Profile CC PCP Comments: 12 hours fasting, may have water. TYPE CODE TESTS RESULT OUT OF RANGE REFERENCE UNITS LAB L501.4900 200 mg/dL High CHOL 228 Result Comment: <200 mg/dL Desirable 200-240 mg/dL Borderline >240 mg/dL High Risk LAB L501.5000 mg/dL High TRIG 223 Result Comment: The drugs N-Acetylcysteine and Metamizole may falsely depress this assay. Serum Triglycerides Reference Interval Normal <150 mg/dL Borderline high 150 - 199 mg/dL High 200 - 499 mg/dL Very High > or = 500 mg/dL LAB L501.6400 mg/dL Normal HDL 44 Result Comment: The drugs N-Acetylcysteine and Metamizole may falsely depress this assay. Reference Range HDL <40 mg/dL Low HDL Cholesterol HDL >or= 60 mg/dL High HDL Cholesterol LAB L501.6500 0-130 mg/dL High LDL 139 LAB L501.6600 5-40 mg/dL High VLDL 45 Performed By: #### L500.4100 #### [facility] [address] [place], [address] PROGRESS Observed: 05/07/2017 Status: COMPLETED Source: [facility] 11:08 AM [facility] REPOSITORY HNO ID: [id number] Author: Khadra Silverman (Azeem) Scott Service: (none) Author Type: Nurse Practitioner Type: Progress Notes Filed: 05/07/2017 6:38 PM Note Text: Chief Complaint Patient presents with: Back Pain Not sleeping HPI Antony Mujica is a 61 year old male who presents here today for Above Complaints. He is under the care of Dr. Mcpherson for chronic back pain, has had epidural injections, recent course of Prednisone- mild relief. Has been referred to Dr.Scott Sauceda at [facility] for surgical consult, apt on 06/01/2017. Recent change in medication to ,Xtampza- (ER oxycodone). He's not sleeping well due to pain, entire left leg numb/tingly, starting to go into groin and right leg. Reports averaging 2-3 hours sleep, then up and walks around the house. He and basically wanting to update PCP with future apts. Continues to have positive outlook despite chronic pain. Admits does wear a person down. He denies any suicidal or homicidal thoughts. Tries to get outside each day weather permitting. He notes he walks to get the mail 100 yards every day. The ROS is otherwise negative. Past medical history, appointments, medications, allergies reviewed. Patient Allergies ALLERGIES Allergen Reactions - Entex Pse [Pseudoep* chest pain Current Medications Current Outpatient Prescriptions on File Prior to Visit: FLUoxetine HCl (PROZAC) 40 mg capsule Take 1 capsule by mouth once daily. ADALIMUMAB (HUMIRA SUBCUTANEOUS) Inject subcutaneously every 2 weeks. sildenafil (VIAGRA) 50 mg tablet as needed sucralfate (CARAFATE) 1 gram tablet TAKE ONE(1) TABLET FOUR(4) TIMES DAILY 1HOUR BEFORE MEALS AND AT BEDTIME. PRN ranolazine SR (RANEXA) 1,000 mg Tb12 Take 2 tablets by mouth twice daily. meloxicam 15 mg tablet Take 1 tablet by mouth once daily. Take with food. carvedilol (COREG) 12.5 mg tablet Take 6.25 mg by mouth twice daily with meals. leflunomide (ARAVA) 20 mg tablet Take 1 tablet by mouth once daily. Omeprazole (PRILOSEC) 40 mg ORAL capsule Take 40 mg by mouth once daily. lisinopril (PRINIVIL) 5 mg ORAL tablet Take one(1) tablet daily. clopidogrel bisulfate(PLAVIX 75 MG TAB) Take one(1) tablet daily. busPIRone (BUSPAR) 5 mg tablet Take 1 tablet by mouth three times daily. oxyCODONE-acetaminophen 10 mg - 325 mg (PERCOCET) 10-325 mg ORAL per tablet Take 1 tablet by mouth every 6 hours as needed. FOR PAIN. No current facility-administered medications on file prior to visit. Previous Medical History PAST MEDICAL HISTORY Diagnosis Date - Acute myocardial infarction of inferoposterior wall, subsequent episode of care ([facility]) - Anxiety 04/02/2011 - Bulge of cervical disc without myelopathy 03/23/2014 [facility] - see scanned documents - Disc bulge C-5-C8-C-6-C-7 - Cataract extraction status, right eye 01/18/15 Right eye-Dr. Lin - Coronary atherosclerosis of mic[place]uke[place] coronary artery - Coronary atherosclerosis of unspecified type of vessel, [place] or graft 2 coronary artery stents - Depression 04/02/2011 - Fibromyalgia 12/02/2010 - GERD (gastroesophageal reflux disease) 07/15 by EGD - Nausea - Osteoporosis 03/19/2014 [facility] - see scanned documents - Other and unspecified hyperlipidemia - Rheumatoid arthritis(714.0) 12/02/2010 Previous Surgical History PAST SURGICAL HISTORY Procedure Laterality Date - CABG, ARTERY-VEIN, FIVE CABG, five grafts - CATARACT EXTRACTION HX 02/08/15 left eye-Dr. Riley MAN W/REM POLYP SNARE 07-09-09 repeat in - EGD W/O [facility]SH SPECIMEN W/BX 07-09-09 - MRI 01/17/2014 [facility] - Ordered by Dr. Ballard - MRI 03/26/2014 [facility] - see scanned documents - PERC TRANSL COR ANGIO 06-10-2009 Percutaneous Transluminal Coronary Angio Status Family History FAMILY HISTORY Problem Relation Age of Onset - Diabetes Father - Heart Father - Heart Mother - Diabetes Mother - Alcohol/Drug Sister Social History Social History Marital status: Spouse name: Years of education: Number of children: 3 Social History Main Topics Smoking status: Former Smoker Packs/day: 0.75 Years: 25.00 Quit date: 03/07/2004 Smokeless status: Never Used Comment: quit 2003 Alcohol use: No Drug use: No EXAM: BP 111/82 Pulse 90 Resp 18 Wt 101.6 kg (224 lb) BMI 33.08 kg/m2 General Appearance: Well appearing, alert, in no acute distress, well-hydrated, well nourished., antalgic gait, walks with cane. Neck: Supple, no adenopathy; thyroid symmetric, normal size, no bruits. Lungs: Lungs clear to auscultation. No wheezing, rhonchi, rales. Heart: RRR without murmur, gallop, or rubs. No ectopy. ASSESSMENT/PLAN: 1. Sleep difficulties - ICD9: 780.50, ICD10: G47.9 (primary diagnosis) - Discussed possible treatment options including amitriptyline, low dose. He has a pain contract with Dr. Mcpherson. - He is to keep office posted with how doing, to call report in 2-3 weeks. - AMITRIPTYLINE 25 MG TABLET 2. Chronic bilateral low back pain with bilateral sciatica - ICD9: 724.2, 724.3, 338.29, ICD10: M54.42, M54.41, G89.29 -future apt with surgeon 3. Neuropathic pain of both legs - ICD9: 356.9, ICD10: G57.91, G57.92 - As above, warned of drowsy side effects. - AMITRIPTYLINE 25 MG TABLET Khadra Chavez, MSN LAB SCIENTIST CNOV Observed: 05/07/2017 Status: COMPLETED Source: [facility] 10:40 AM [facility] REPOSITORY Office Visit (FAMPWS) ANTONY MUJICA ([id number]) 1955 M Date Time Provider Department 05/07/17 10:40 AM KHADRA CHAVEZ (TECHNICAL WRITER AND EDITOR) FAMPWS During your visit today, we recorded the following information about you: Pulse Respiration Blood pressure Weight 90/minute 18/minute 111/82 101.6 kg FARHANA Ch LAB SCIENTIST 05/07/2017 6:38 PM Signed Chief Complaint Patient presents with: Back Pain Not sleeping HPI Antony Mujica is a 61 year old male who presents here today for Above Complaints. He is under the care of Dr. Mcpherson for chronic back pain, has had epidural injections, recent course of Prednisone- mild relief. Has been referred to Dr.Scott Sauceda at [facility] for surgical consult, apt on 06/01/2017. Recent change in medication to ,Xtampza- (ER oxycodone). He's not sleeping well due to pain, entire left leg numb/tingly, starting to go into groin and right leg. Reports averaging 2-3 hours sleep, then up and walks around the house. He and basically wanting to update PCP with future apts. Continues to have positive outlook despite chronic pain. Admits ANDquot;does wear a person downANDquot;. He denies any suicidal or homicidal thoughts. Tries to get outside each day weather permitting. He notes he walks to get the mail 100 yards every day. The ROS is otherwise negative. Past medical history, appointments, medications, allergies reviewed. Patient Allergies ALLERGIES Allergen Reactions - Entex Pse [Pseudoep* chest pain Current Medications Current Outpatient Prescriptions on File Prior to Visit: FLUoxetine HCl (PROZAC) 40 mg capsule Take 1 capsule by mouth once daily. ADALIMUMAB (HUMIRA SUBCUTANEOUS) Inject subcutaneously every 2 weeks. sildenafil (VIAGRA) 50 mg tablet as needed sucralfate (CARAFATE) 1 gram tablet TAKE ONE(1) TABLET FOUR(4) TIMES DAILY 1HOUR BEFORE MEALS AND AT BEDTIME. PRN ranolazine SR (RANEXA) 1,000 mg Tb12 Take 2 tablets by mouth twice daily. meloxicam 15 mg tablet Take 1 tablet by mouth once daily. Take with food. carvedilol (COREG) 12.5 mg tablet Take 6.25 mg by mouth twice daily with meals. leflunomide (ARAVA) 20 mg tablet Take 1 tablet by mouth once daily. Omeprazole (PRILOSEC) 40 mg ORAL capsule Take 40 mg by mouth once daily. lisinopril (PRINIVIL) 5 mg ORAL tablet Take one(1) tablet daily. clopidogrel bisulfate(PLAVIX 75 MG TAB) Take one(1) tablet daily. busPIRone (BUSPAR) 5 mg tablet Take 1 tablet by mouth three times daily. oxyCODONE-acetaminophen 10 mg - 325 mg (PERCOCET) 10-325 mg ORAL per tablet Take 1 tablet by mouth every 6 hours as needed. FOR PAIN. No current facility-administered medications on file prior to visit. Previous Medical History PAST MEDICAL HISTORY Diagnosis Date - Acute myocardial infarction of inferoposterior wall, subsequent episode of care ([facility]) - Anxiety 04/02/2011 - Bulge of cervical disc without myelopathy 03/23/2014 [facility] - see scanned documents - Disc bulge R-0-L8-C-6-C-7 - Cataract extraction status, right eye 01/18/15 Right eye-Dr. Lin - Coronary atherosclerosis of [place] coronary artery - Coronary atherosclerosis of unspecified type of vessel, [place] or graft 2 coronary artery stents - Depression 04/02/2011 - Fibromyalgia 12/02/2010 - GERD (gastroesophageal reflux disease) 07/15 by EGD - Nausea - Osteoporosis 03/19/2014 [facility] - see scanned documents - Other and unspecified hyperlipidemia - Rheumatoid arthritis(714.0) 12/02/2010 Previous Surgical History PAST SURGICAL HISTORY Procedure Laterality Date - CABG, ARTERY-VEIN, FIVE CABG, five grafts - CATARACT EXTRACTION HX 02/08/15 left eye-Dr. Lin - DONOVAN W/REM POLYP SNARE 07-09-09 repeat in - [facility] 07[facility]09-09 - MRI 01/17/2014 [facility] - Ordered by Dr. Ballard - MRI 03/26/2014 [facility] - see scanned documents - PERC TRANSL COR ANGIO --2009 Percutaneous Transluminal Coronary Angio Status Family History FAMILY HISTORY Problem Relation Age of Onset - Diabetes Father - Heart Father - Heart Mother - Diabetes Mother - Alcohol/Drug Sister Social History Social History Marital status: Spouse name: Years of education: Number of children: 3 Social History Main Topics Smoking status: Former Smoker Packs/day: 0.75 Years: 25.00 Quit date: 03/07/2004 Smokeless status: Never Used Comment: quit 2003 Alcohol use: No Drug use: No EXAM: BP 111/82 Pulse 90 Resp 18 Wt 101.6 kg (224 lb) BMI 33.08 kg/m2 General Appearance: Well appearing, alert, in no acute distress, well-hydrated, well nourished., antalgic gait, walks with cane. Neck: Supple, no adenopathy; thyroid symmetric, normal size, no bruits. Lungs: Lungs clear to auscultation. No wheezing, rhonchi, rales. Heart: RRR without murmur, gallop, or rubs. No ectopy. ASSESSMENT/PLAN: 1. Sleep difficulties - ICD9: 780.50, ICD10: G47.9 (primary diagnosis) - Discussed possible treatment options including amitriptyline, low dose. He has a pain contract with Dr. Mcpherson. - He is to keep office posted with how doing, to call report in 2-3 weeks. - AMITRIPTYLINE 25 MG TABLET 2. Chronic bilateral low back pain with bilateral sciatica - ICD9: 724.2, 724.3, 338.29, ICD10: M54.42, M54.41, G89.29 -future apt with surgeon 3. Neuropathic pain of both legs - ICD9: 356.9, ICD10: G57.91, G57.92 - As above, warned of drowsy side effects. - AMITRIPTYLINE 25 MG TABLET Khadra Chavez, MSN LAB SCIENTIST Referring Provider: SELF [[id number]] Allergies As of Date: 05/07/2017 Noted Allergy Reaction ENTEX PSE (PSEUDOEPHEDRINE-GUAIFE*11/09/2006 Comments: chest pain Date Reviewed: 05/07/2017 Reviewed by: Karla ([facility]) JULIET Hernandez - Fully Assessed Reason for Visit: Back Pain [12] Not sleeping [Other] Primary Visit Diagnosis:Sleep difficulties [G47.9] Other Visit Diagnoses:Chronic bilateral low back pain with bilateral sciatica [M54.42, M54.41, G89.29] Lumbar radiculopathy [M54.16] Neuropathic pain of both legs [G57.91, G57.92] Order(s):amitriptyline (ELAVIL) 25 mg tabletTake 1 tablet by mouth daily at bedtime.Disp: 30 tabletRfl: 1 Prescriptions as of 05/07/2017 Sig: OXYCODONE ER 13.5 MG CAPSULE * Take 13.5 mg by mouth three t* FLUOXETINE 40 MG CAPSULE Take 1 capsule by mouth once * HUMIRA SUBCUTANEOUS Inject subcutaneously every * SILDENAFIL 50 MG TABLET as needed SUCRALFATE 1 GRAM TABLET TAKE ONE(1) TABLET FOUR(4) TI* RANOLAZINE ER 1,000 MG TABLET* Take 2 tablets by mouth twice* MELOXICAM 15 MG TABLET Take 1 tablet by mouth once d* CARVEDILOL 12.5 MG TABLET Take 6.25 mg by mouth twice d* LEFLUNOMIDE 20 MG TABLET Take 1 tablet by mouth once d* OMEPRAZOLE 40 MG CAPSULE,CLAUDIA* Take 40 mg by mouth once myranda* LISINOPRIL 5 MG TABLET Take one(1) tablet daily. PLAVIX 75 MG TABLET Take one(1) tablet daily. AMITRIPTYLINE 25 MG TABLET Take 1 tablet by mouth daily * BUSPIRONE 5 MG TABLET Take 1 tablet by mouth three * OXYCODONE-ACETAMINOPHEN 10 MG* Take 1 tablet by mouth every * Medication notes this encounter OXYCODONE-ACETAMINOPHEN 10 MG-325 MG TABLET >> Karla Hernandez CMA, MA 05/07/2017 11:00 AM >> KARLA HERNANDEZ CMA May 07, 2017 11:00 AM On hold Problem List As Of Date 05/07/2017 Noted Resolved HYPERLIPIDEMIA NEC/NOS [E78.5] FL INF/POST SUBSEQNT EPISD CARE [I21.19] CORON ATHEROSCL OHKAY OWINGEH CORON VESSEL [I25.10] Cervical disc disorder with radiculopathy [M50.*INVALID FOR* More... Abdominal Pain [R10.9] INVALID FOR* GERD (gastroesophageal reflux disease) [K21.9] INVALID FOR* More... Rheumatoid arthritis (HCC) [M06.9] INVALID FOR* Depression [F32.9] INVALID FOR* Anxiety [F41.9] INVALID FOR* Osteoporosis [M81.0] INVALID FOR* More... Essential hypertension [I10] INVALID FOR* Vertebral compression fracture (HCC) [M48.50XA] INVALID FOR* Prescriptions ordered this encounter Disp Refills Start End AMITRIPTYLINE 25 MG TABLET 30 t* 1 05/07/2017 Route: ORAL Sig: Take 1 tablet by mouth daily at bedtime. Disposition: Return if symptoms worsen or fail to improve. Follow-up and Disposition History Recorded Encounter Status:Closed by KHADRA CHAVEZ LAB SCIENTIST on 05/07/17 SPINE LUMBAR Observed: 05/06/2017 Status: F Source: [place] (ROUTINE) 4:44 PM [facility] REPOSITORY [facility] Imaging Services [address] [place] [id number] Spine Lumbar (Routine) MR#: [id number] Acct: [id number] Name: ANTONY MUJICA Kira Rep #: [id number] : 1955 M 61 From: Susy Sauceda MD PCP: Dominick Cueto III, MD Status: REG CLI Study: Spine Lumbar (Routine) Date of Exam: 05/06/17 Exam# [id number] Ordering Dr: Iron Mcpherson MD STUDY: MRI LUMBAR SPINE WITHOUT CONTRAST REASON FOR EXAM: Male, 61 years old. Back and bilateral leg pain. TECHNIQUE: Standardized fat and water weighted pulse sequences were obtained in the sagittal and axial planes. COMPARISON: Radiographs lumbar spine dated March 03, 2017. FINDINGS: T12-L1: There is moderate compression of the superior endplate of L1. Estimated amount compression is at least 60% of expected height of this vertebral body. This appears old. There is increased height of the disc at this level related to the compression fracture. No foramina are patent. There is no significant central acquired canal stenosis. Normal lumbar lordosis. There is no substantial scoliosis. Normal conus medullaris that terminates at the T12-L1 level. L1-2: There is mild annular disk bulge and osteophyte complex. There is mild degenerative arthropathy of the facet joints. Bilateral neuroforamina are narrowed without MR evidence for nerve impingement. There is no significant central canal stenosis. L2-3: There is an annular disc bulge and osteophyte complex. There is moderate degenerative arthropathy of facet joints. There is severe right-sided neural foraminal narrowing with apparent impingement of the right L2 nerve root at the neural foramen. Left neural foramen is patent. L3-4: There is an annular disc bulge and osteophyte complex. There is moderate degenerative arthropathy of facet joints. There is bilateral neural foraminal narrowing, left greater than right with potential impingement of the left L3 nerve root at the neural foramen. L4-5: There is an annular disc bulge with broad central disc protrusion. There are severe degenerative arthropathy of facet joints. There is moderate acquired canal stenosis. Bilateral neural foramina are bilaterally narrowed, left greater than right with potential impingement of the left L4 nerve root at the neural foramen. L5-S1: There is a mild disc bulge and osteophyte complex. There is moderate degenerative arthropathy of facet joints. Neural foramina are narrowed without evidence for nerve impingement. There is no significant central acquired canal stenosis. Normal visualized sacral ala. There are degenerative changes at the sacroiliac joints. Normal visualized paraspinous soft tissue structures. MRI/Spine Lumbar (Routine) IMPRESSION: 1. Moderate old compression fracture of L1. 2. Moderately severe multilevel degenerative disc disease and degenerative arthropathy lumbar spine with acquired canal stenosis, neural foraminal narrowing and potential nerve impingement, as described. 3. 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 Electronically Signed: Susy Sauceda MD at 0:07 EST , Service support , CC: Iron Mcpherson MD; Dominick Cueto III, MD Account Manager Relief: Signed EMERGENCY DEPARTMENT Observed: 04/17/2017 Status: F Source: [place] SUMMARY 7:14 AM [facility] REPOSITORY [facility] Medical Records Department [address] [place] [address] Emergency Department Summary 04/17/17 0304 MR#: [id number] Acct: [id number] Name: ANTONY MUJICA Rep #: [id number] : 1955 61 From: Shelley Boss DO PCP: Dominick Cueto III, MD Status: DEP ER - ER Visit Summary Date of Service: 04/17/17 Chief Complaint: [] Acute on chronic back pain History of Present Illness: The patient is a 61 M [] complaining of acute on chronic back pain. Patient reports a history of sciatica for which she is seen at pain management and receives injections. He reports intermittent worsening pain over the last 2-3 weeks. Reports going to a local [employer] and was pushing around a heavy cart of supplies which aggravated his low back which now has pain radiating down to the left lower extremity. He reports taking Mobic and Percocet at home without significant relief. Denies bowel or bladder dysfunction or saddle anesthesia. Physical Examination: [] Mild tenderness palpation in the left lumbosacral paraspinal area. Patient able to ambulate with mild discomfort. Test Results: [] None. Emergency Department Course and Treatment: [] Patient provided 8 mg IM morphine for analgesia. He was encouraged to follow-up with his pain management physician. Treatment Plan: [] Follow up with pain management. Disposition: [] Discharge, stable. Impression: [] Acute on chronic back pain This note was generated with [employer] dictation software. It may contain incorrect words, spelling, and punctuation that were not noted in review of the chart prior to signing ED Disposition - Plan for ED Patient: Chief Complaint: Back Referrals: Dominick Cueto III, MD [Primary Care Provider] - What to do if you have Problems For any increased pain, shortness of breath, bleeding, nausea or vomiting, chest pain, or any unexpected problems, contact your Primary Care Provider. Call [facility] ([phone]) or report to the closest Emergency Room. Call 911 if necessary. 04/17/17 0714 <Electronically signed by Shelley Boss DO> Date Shelley Boss DO Cosigner Signature (If Indicated): Date CC: Dominick Cueto III, MD DISCHARGE INSTRUCTION Observed: 04/17/2017 Status: F Source: [place] 3:07 AM [facility] REPOSITORY [facility] Medical Records Department [address] [place] [address] Discharge Instruction 04/17/17305 MR#: [id number] Acct: [id number] Name: ANTONY MUJICA W Rep #: [id number] : 1955 61 From: Shelley Boss DO PCP: Dominick Cueto III, MD Status: PRE ER ED Disposition - Plan for ED Patient: Disposition: Home or Assisted Living Chief Complaint: Back Instructions: ED Sciatica Referrals: Dominick Cueto III, MD [Primary Care Provider] - What to do if you have Problems For any increased pain, shortness of breath, bleeding, nausea or vomiting, chest pain, or any unexpected problems, contact your Primary Care Provider. Call [facility] ([phone]) or report to the closest Emergency Room. Call 911 if necessary. 04/17/17305 <Electronically signed by Shelley Boss DO> Date Shelley Boss DO Cosigner Signature (If Indicated): Date CC: Dominick Cueto III, MD LUMBAR SPINE 2 OR 3 Observed: 03/03/2017 Status: F Source: DANTE VIEWS 4:[address] [facility] Imaging Services [address] [place] [address] Lumbar Spine 2 or 3 Views MR#: [id number] Acct: [id number] Name: ANTONY MUJICA Rep #: [id number] : 1955 M 61 From: Riley Stroud MD PCP: Dominick Cueto III, MD Status: REG CLI Study: Lumbar Spine 2 or 3 Views Date of Exam: 03/03/17 Exam# [id number] Ordering Dr: Iron Mcpherson MD STUDY: X-RAY - LUMBAR SPINE REASON FOR EXAM: Male, 61 years old. Chronic low back pain. TECHNIQUE: 3 view(s) of the lumbar spine were obtained. COMPARISON: September 25, 2015 FINDINGS: There is stable mild generalized osteopenia. Normal lumbar lordosis. There is no substantial scoliosis. There is a normal alignment of the vertebrae. There is an anterior wedge compression deformity of L1 which is more pronounced than on the prior study. There is multilevel intervertebral disc space narrowing with osteophyte formation most marked at L3-4 and L4-5. There is diffuse facet sclerosis. There is stable marked vascular calcification. RAD/Lumbar Spine 2 or 3 Views IMPRESSION: Stable osteopenia with lumbar spondylosis. Further anterior wedge compression of the L1 vertebral body. Electronically Signed: Riley Stroud MD at 14:26 EST , Service support , CC: Iron Mcpherson MD; Dominick Cueto III, MD Account Manager Relief: Signed ALLERGIES ALLERGIES DATE TYPE / CODE NAME / CODE REACTION SEVERITY SOURCE 02/03/2018 Drug No Known Unknown [facility] Allergy/4160 Allergies/F00 Hospital [address]35(SNOMED 8079425(RXNOR Repository CT) M) 11/09/2006 DRUG/3263343 PSEUDOEPHEDRI [facility] 03(SNOMED NE-[facility] CT) N Repository ENCOUNTERS ENCOUNTERS ADMIT/DISCHARGE ACCOUNT ADMITTING ENCOUNTER LOCATION SOURCE NUMBER CLASS 02/08/2018 [id number] Ambulatory [facility] ing:LAB Repository 02/07/2018/02/09/20 [id number] Ambulatory [address] Repository 02/07/2018 [id number] Ambulatory [facility] Hospital ing:LAB Repository 02/07/2018 [id number] [facility] ing:LAB Repository 02/03/2018/02/04/20 [id number] Ambulatory BMSBuilding:B [place] [facility] Repository 01/13/2018 [id number] Ambulatory [facility] Hospital ing:MRI Repository 12/24/2017/12/28/19 [id number] Ambulatory [address] Repository 12/01/2017 [id number] Ambulatory [facility] Hospital ing:LAB Repository 11/22/2017 [id number] Ambulatory [facility] Hospital ing:LAB Repository 08/17/2017 [id number] Ambulatory [facility] Hospital ing:LAB Repository 07/22/2017/07/24/19 [id number] Ambulatory [address] Repository 07/20/2017/07/21/19 [id number] [facility] [address] [facility] Repository 06/18/2017/06/19/19 [id number] Ambulatory BMSBuilding:[facility] [place] [facility] Repository 06/15/2017 [id number] Ambulatory B[place]:[place] [facility] Repository 05/17/2017 [id number] [facility] ing[facility]LAB Repository 05/07/2017/06/16/19 [id number] Ambulatory [address] Repository 05/06/2017 [id number] [facility] ing[facility]MRI Repository 04/17/2017/04/17/19 [id number] [address] [facility] ing:ED Repository 03/03/2017 [id number] Ambulatory [facility] Hospital ing:RAD Repository PAYERS PAYERS ENCOUNTER GUARANTOR PAYER SUBSCRIBER SOURCE 02/08/2018 ANTONY W Primary Insurance:[facility] J [place] [id number] [facility] PFLUGHDOB: [facility] [id number] [facility] [address]Eiw: Number: Repository [id number] (HP) Date:8897-91-79ZR [address] [address], [place] [address]UK: CHECK WEBSITE 02/08/2018 Secondary ANTONY W [place] Insurance:MEDICARE PFLUGHDOB: Community PART A [facility] [id number] Hospital Number: Repository [id number] Date:2018-02-08 02/08/2018 Tertiary NOT GIVENUNK Dante Insurance:SELF PAY [facility] Number: Effective Repository Date:2018-02-08 02/07/2018 ANTONY W Primary Insurance:[facility] Nuñez Dante [id number] [facility] PFLUGHDOB: [facility] [id number] [place] [id number]: Number: Repository [id number] (HP) Date:9465-03-54YZ [address] [address]D, [place] [address]UF: CHECK WEBSITE 02/07/2018 Secondary ANTONY W [place] Insurance:MEDICARE PFLUGHDOB: Community PART A [facility] [id number] Hospital Number: Repository [id number] Date:2018-02-04 02/07/2018 Tertiary NOT GIVENUNK [place] Insurance:SELF PAY [facility] Hospital Number: Effective Repository Date:2018-02-04 02/07/2018 ANTONY W Primary Insurance:[facility] [place] [id number] [facility] PFLUGHDOB: [facility] [id number] Regional Medical Center [address]Vhl: Number: Repository [id number] (HP) Date:3117-78-80SO [address] [address]WRIJW, [place] [address]UD: CHECK WEBSITE 02/07/2018 Secondary ANTONY W Dante Insurance:MEDICARE PFLUGHDOB: Community PART A [facility] [id number] Hospital Number: Repository [id number] Date:2018-01-19 02/07/2018 Tertiary NOT GIVENUNK [place] Insurance:SELF PAY [facility] Number: Effective Repository Date:2018-01-19 02/03/2018 ANTONY W Primary Insurance:[facility] Nuñez Dante [id number] [facility] PFLUGHDOB: [facility] [id number] Regional Medical Center [address]Pnw: Number: Repository [id number] (HP) Date:8201-39-87VN [address] [address]TIJCPMYW[place], [place] [address]JA: CHECK WEBSITE 02/03/2018 Secondary ANTONY W [place] Insurance:MEDICARE PFLUGHDOB: Community PART A [facility] [id number] Hospital Number: Repository [id number] Date:2017-06-18 02/03/2018 Tertiary NOT GIVENUNK [place] Insurance:SELF PAY [facility] Number: Effective Repository Date:2018-01-31 01/13/2018 ANTONY W Primary Insurance:[facility] [place] Dante [id number] [facility] PFLUGHDOB: [facility] [id number] Regional Medical Center [address]Stq: Number: Repository [id number] (HP) Date:1416-30-72CT [address] [address]GRNEJEYX, [place] [address]ZL: CHECK WEBSITE 01/13/2018 Secondary ANTONY W [place] Insurance:MEDICARE PFLUGHDOB: Community PART A [facility] [id number] Hospital Number: Repository [id number] Date:2018-01-07 01/13/2018 Tertiary NOT GIVENUNK [place] Insurance:SELF PAY [facility] Number: Effective Repository Date:2018-01-07 12/01/2017 ANTONY W Primary Insurance:[facility] [place] [id number] [facility] PFLUGHDOB: [facility] [id number] Ville [address]Tel: Number: Repository [id number] (HP) Date:3347-65-69SZ [address] [address]XNSIGPFPJ, [place] [address]FA: CHECK WEBSITE 12/01/2017 Secondary ANTONY W [place] Insurance:MEDICARE PFLUGHDOB: Community PART A [facility] [id number] Hospital Number: Repository [id number] Date:2017-11-29 12/01/2017 Tertiary NOT GIVENUNK [place] Insurance:SELF PAY [facility] Number: Effective Repository Date:2017-11-29 11/22/2017 ANTONY W Primary Insurance:[facility] [place] [id number] [facility] PFGHDOB: [facility] [id number] Regional Medical Center [address]Vcm: Number: Repository [id number] (HP) Date:1943-54-19ED [address] [address]UICSFALSA, [place] [address]FF: CHECK WEBSITE 11/22/2017 Secondary ANTONY W [place] Insurance:MEDICARE PFLUGHDOB: Community PART A [facility] [id number] Hospital Number: Repository [id number] Date:2017-11-19 11/22/2017 Tertiary NOT GIVENUNK [place] Insurance:SELF PAY [facility] Number: Effective Repository Date:2017-11-19 08/17/2017 ANTONY W Primary Insurance:[facility] [place] Dante [id number] [facility] PFLUGHDOB: [facility] [id number] Regional Medical Center [address]Lyw: Number: Repository [phone] [id number] -3 (HP) Date:8340-43-58YY [address] [address]GWEVNMKDD, [place] [address]KG: CHECK WEBSITE 08/17/2017 Secondary ANTONY W [place] Insurance:MEDICARE PFLUGHDOB: Community PART A [facility] [id number] Hospital Number: Repository [id number] Date:2017-08-16 08/17/2017 Tertiary NOT GIVENUNK [place] Insurance:SELF PAY [facility] Number: Effective Repository Date:2017-08-16 07/20/2017 ANTONY W Primary Insurance:[facility] [place] [id number] [facility] PFLUGHDOB: [facility] [id number] Regional Medical Center [address]Lky: Number: Repository [phone] [id number] -3 (HP) Date:9904-58-51CG [facility] [address]XKBKDOEJM, [place] [address]CK: CHECK WEBSITE 07/20/2017 Secondary ANTONY W [place] Insurance:MEDICARE PFLUGHDOB: Community PART A [facility] [id number] Hospital Number: Repository [id number] Date:2013-09-05 07/20/2017 Tertiary NOT GIVENUNK [place] Insurance:SELF PAY [facility] Number: Effective Repository Date:2017-06-28 06/18/2017 ANTONY W Primary Insurance:[facility] [place] [id number] [facility] PFLUDOB: [facility] [id number] Regional Medical Center [address]Zfq: Number: Repository [phone] [id number] -3 (HP) Date:8097-87-16AZ [facility] [address]32LVZQOGLNF, [place] [address]JT: CHECK WEBSITE 06/18/2017 Secondary ANTONY W [place] Insurance:MEDICARE PFLUGHDOB: Community PART A [facility] [id number] Hospital Number: Repository [id number] Date:2017-02-11 06/18/2017 Tertiary NOT GIVENUNK [place] Insurance:SELF PAY [facility] Number: Effective Repository Date:2017-06-18 06/15/2017 Antony W Primary Insurance:[facility] [place] [id number] [facility] PFVIRGINIA MASON HOSPITALDOB: [facility] [id number] Regional Medical Center [address]Qou: Number: Repository [phone] [id number] -3 (HP) Date:3054-01-43OF [facility] [address]FYMACAXUH, [place] [address]LF: CHECK WEBSITE 06/15/2017 Secondary Antony W [place] Insurance:MEDICARE PflughDOB: Community PART A [facility] [id number] Hospital Number: Repository [id number] Date:2017-06-15 06/15/2017 Tertiary NOT GIVENUNK [place] Insurance:SELF PAY [facility] Number: Effective Repository Date:2017-06-15 05/17/2017 Antony W Primary Insurance:[facility] [place] [id number] [facility] PFLUGHDOB: [facility] [id number] Regional Medical Center [address]Tdu: Number: Repository [phone] [id number] -3 (HP) Date:5916-85-40LH [address] [address]MSMGPXISY, [place] [address]YL: CHECK WEBSITE 05/17/2017 Secondary Antony W [place] Insurance:MEDICARE PflughDOB: Community PART A [facility] [id number] Hospital Number: Repository [id number] Date:2017-04-08 05/17/2017 Tertiary NOT GIVENUNK [place] Insurance:SELF PAY [facility] Hospital Number: Effective Repository Date:2017-04-08 05/06/2017 Antony W Primary Insurance:[facility] [place] [id number] [facility] PFLUGHDOB: [facility] 3491-27-14MDGPlains Regional Medical Center [address]Ajc: Number: Repository [phone] [id number] -3 (HP) Date:4593-51-80WT [facility] [address]DQKQKIHGV, [place] [address]VD: CHECK WEBSITE 05/06/2017 Secondary Antony W [place] Insurance:MEDICARE PflughDOB: Community PART A [facility] [id number] Hospital Number: Repository [id number] Date:2017-05-04 05/06/2017 Tertiary NOT GIVENUNK [place] Insurance:SELF PAY [facility] Number: Effective Repository Date:2017-05-04 04/17/2017 Antony W Primary Insurance:[facility] [place] [id number] [facility] PFLUGHDOB: [facility] 8166-17-76FMLPlains Regional Medical Center [address]Vtn: Number: Repository [phone] [id number] -3 (HP) Date:4609-95-81ZQ [address] [address]UHGIBRFZY, [place] [address]IA: CHECK WEBSITE 04/17/2017 Secondary Antony W [place] Insurance:MEDICARE PflughDOB: Community PART A [facility] [id number] Hospital Number: Repository [id number] Date:2017-04-17 04/17/2017 Tertiary NOT GIVENUNK [place] Insurance:SELF PAY [facility] Number: Effective Repository Date:2017-04-17 03/03/2017 Antony W Primary Insurance:[facility] Nuñez [place] [id number] [facility] PFLUGHDOB: [facility] [id number] Regional Medical Center [address]Ila: Number: Repository [phone] [id number] -3 (HP) Date:2650-94-39SQ [address] [address]TFFTIFOBE, [place] [address]AG: CHECK WEBSITE 03/03/2017 Secondary Antony W [place] Insurance:MEDICARE PflughDOB: Community PART A [facility] [id number] Hospital Number: Repository [id number] Date:2017-03-03 03/03/2017 Tertiary NOT GIVENUNK [place] Insurance:SELF PAY [facility] Hospital Number: Effective Repository Date:2017-03-03
== END ==
PROVIDERS: Family Provider Family Medicine; PCP Family Medicine
DX: M75.122 Complete rotator cuff tear or rupture of left shoulder, not specified as traumatic (principal)
CPT/HCPCS: 36415; 80048; 82306; 85025

== ENCOUNTER → 2018-02-08 06:41 | Outpatient (CLI) | payer OTHER, MEDICARE, SELFPAY ==
[2018-02-03 09:21] VITALS: BMI 35.9
[2018-02-08 07:10] LABS: Glucose 155 mg/dL (74-106)
[2018-02-08 10:03] LABS: Hemoglobin A1c 6.9 % (4.2-6.3)
== END ==
PROVIDERS: Family Provider Family Medicine; PCP Family Medicine; Referring Provider Family Medicine; Visit Provider Family Medicine
DX: R73.9 Hyperglycemia, unspecified (principal)
CPT/HCPCS: 36415; 82947; 83036

== ENCOUNTER → 2018-03-28 16:38 | Outpatient (CLI) | payer OTHER, MEDICARE, SELFPAY ==
[2018-02-03 09:21] VITALS: BMI 35.9
[2018-03-28 17:09] LABS: Absolute Lymphocyte Count 3.51 X10^3/ul (0.83-4.51); Absolute Neutrophil Count 3.6 X10^3/uL (2.0-7.7); Basophil# 0.01 X10^3/uL; Basophil% 0.1 % (0-1); Eosinophil# 0.12 X10^3/uL; Eosinophils% 1.4 % (0-5); Hematocrit 39.5 % (40-54); Hemoglobin 13.3 g/dl (13.0-16.5); Lymphocyte # 3.51 X10^3/ul (4.0); Lymphocyte % 41.4 % (19-41); Mean Corp Hgb Conc 33.7 g/gl (32-36); Mean Corpuscular Hgb 33.5 pg (27.0-32.0); Mean Corpuscular Volume 99.5 fL (80-94); Mean Platelet Vol. 8.6 fl (6.2-12.0); Monocyte# 1.26 X10^3/uL; Monocyte% 14.9 % (0-10); Neutrophil # 3.56 X10^3/uL (2.7-7.7); Platelet Count 195 K/mm3 (150-450); RBC Distribution Width SD 50.4 fl (35.1-43.9); Red Blood Count 3.97 M/mm3 (4.6-6.2); White Blood Count 8.5 K/mm3 (4.4-11.0)
[2018-03-28 17:13] LABS: POSITIVE COUNT NO; POSITIVE DIFFERENTIAL NO; POSITIVE MORPHOLOGY NO
[2018-03-28 17:46] LABS: AST(SGOT) 19 U/L (15-37); Alanine Aminotransfer ALT/SGPT 30 U/L (16-61); Albumin, Serum 3.5 g/dL (3.2-5.0); Alkaline Phosphatase 144 U/L (45-117); Anion Gap 7 (5-15); BUN 19 mg/dL (7-18); BUN/Creat Ratio 19.8 RATIO (10-20); Calcium,Total 8.7 mg/dL (8.5-10.1); Chloride 106 mmol/L (98-107); Creatinine, Serum 0.96 mg/dL (0.70-1.30); EST Glomerular Filtration Rate 85 mL/min (>60); Est Glom Filt Rate - Afr Amer 103 mL/min (>60); Globulin 3.6 g/dL (2.2-4.2); Glucose 140 mg/dL (74-106); Potassium 3.8 mmol/L (3.5-5.1); Protein, Total 7.1 g/dL (6.4-8.2); Sodium Level 139 mmol/L (136-145)
--- OUTSIDE RECORDS SUMMARY | 2018-05-31 04:28 | XMS RPT_ITS ---
:1955 Author Organization [employer] Address [facility] [facility] [place] [address] Phone Care Team Providers Name Role Phone Po De León DO Unavailable Reason for Visit Reason For Visit [...] Plan of Care Type Date Detail Appointment 08:40 AM Po De León DO, [address] [facility], [place], [address], Appointment 08:15 AM Ranjit Lemus MD, [address] [facility], [address], [place], [address], Pending order XR LUMBAR 4VWS FLEX/EX Medications Medication Instructions Start Stop Generic Name NDC Provider Date Date TYLENOL EXTRA two tablets / ACETAMINOPHEN 03825869135 Po Nails STRENGTH 500 MG every eight 08 De León TABS hours as needed for pain AMOXICILLIN 500 Take 4 tablets / AMOXICILLIN 53655231451 Leigh MG TABS 1 hour before 14 [place] dental PA-C procedure ADVIL 200 MG take 1 to 2 / IBUPROFEN 80359840023 Anya TABS tablets every 6 30 Opsitnick hours as needed 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 AMITRIPTYLINE 1 tablet daily / AMITRIPTYLINE 72979292781 Anya HCL 25 MG TABS 31 HCL [place] 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 ONDANSETRON HCL 1 tablet every / ONDANSETRON HCL 70693196642 Anya TABS 6 hours 31 TABS [place] 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 LEFLUNOMIDE 10 1 tablet daily / LEFLUNOMIDE 30010453691 Anya MG TABS 31 [place] 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 FLUOXETINE HCL 1 tablet daily / FLUOXETINE HCL 30513446201 Anya 40 MG CAPS 31 [place] 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 ROSUVASTATIN 1 tablet daily / ROSUVASTATIN 23736664243 Anya CALCIUM 10 MG 31 CALCIUM [place] TABS 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 HUMIRA PEN 40 bi-weekly / ADALIMUMAB 03168884014 Scot D MG/0.8ML PNKT 20 De León DO XTAMPZA ER 27 MG two tablets / OXYCODONE 07316877942 Scot D C12A daily for pain 20 De León DO PREDNISONE 10 MG one tablet as / PREDNISONE 07589938833 Scot D TABS needed for pain 20 De León DO ARAVA 10 MG TABS one tablet / LEFLUNOMIDE 66647516171 Scot D daily 20 De León DO BUSPIRONE HCL 5 one tabled as / BUSPIRONE HCL 43901367158 Scot D MG TABS needed 20 De León DO LISINOPRIL 5 MG one tablet once / LISINOPRIL 42489998306 Scot D TABS a day 08 De León DO PLAVIX 75 MG once daily / CLOPIDOGREL 11798332476 Anya TABS 08 BISULFATE [place] 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 NITROSTAT 0.4 MG takes as / NITROGLYCERIN 19569356104 Rosanna Quintero SUBL directed as 08 TRAINING AND DEVELOPMENT OFFICER needed CARVEDILOL 6.25 takes 1 tablet / CARVEDILOL 84951472762 Rosanna Quintero MG TABS twice a day 08 TRAINING AND DEVELOPMENT OFFICER MELOXICAM 15 MG takes 1 tablet / MELOXICAM 78669747910 Rosanna Quintero TABS once a day 08 TRAINING AND DEVELOPMENT OFFICER OMEPRAZOLE 40 MG takes 1 capsule / OMEPRAZOLE 32145761991 Rsoanna Quintero CPDR once a day 08 TRAINING AND DEVELOPMENT OFFICER RANEXA 1000 MG takes 2 tablets / RANOLAZINE 55890977113 Rosanna Quintero [id number] once a day 08 TRAINING AND DEVELOPMENT OFFICER Conditions or Problems Problem Name Problem Onset Status Entry Provider Comment Standard Annotate Code Date Date Description Status post Z96.612 Active Leigh 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 Bijanbankanchan left artificial arthroplasty PA-C shoulder joint of left shoulder Complete 803931335 Active Leigh Full thickness rotator cuff (SNOMED CT) 04/04 04/04 Kilbane rotator cuff tear or PA-C tear rupture of left shoulder, not specified as traumatic Impingement 304077208 Active Anya Impingement syndrome, (SNOMED CT) 03/08 03/08 Opsitnick syndrome of shoulder, 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 shoulder region left Cervical 15619290 Active Anya Spinal stenosis stenosis of (SNOMED CT) 03/08 03/08 Ops[place]nick in cervical spinal canal 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 region S/P lumbar 62004303243 Active Anya History of fusion 106 (SNOMED 08/05 08/[address]) 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 Spondylolist 05123102640 Active Scot D 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 Vital Signs Date Name Value Unit Description BMI (Body Mass 35.10 kg/m2 Body Mass Index Index) [Ratio] Preliminary vital sign data, not yet signed by the author as of BP Diastolic 85 mm[Hg] blood pressure, diastolic Preliminary vital sign [...] Office Visit: Postop - subsequent visit, Rm: 23 MEDS REVIEW Done Documentation of current medications (procedure) Preliminary observation data, not yet signed by the author as of Preliminary observation data, not yet signed by the author as of Clinical Summary: HMSPatientID OOP account number Procedures Code Procedure Name Date Entry Date G8731 Pain assessment documented as negative - follow-up not required G8427 Current medications documented 1036F Tobacco screening was negative - non user G8417 BMI documented as above normal parameters - follow-up documented G8783 Blood pressure within normal parameters - no follow-up required [facility]-[id number] Patient Encounter Medications Administered No information available. [...]
--- OUTSIDE RECORDS SUMMARY | 2018-05-31 04:28 | XMS RPT_ITS ---
:1955 Author Organization Clinicient Address [address] [address] [place] [address] Phone Care Team Providers Name Role Phone Ranjit Lemus MD Reason for Visit Reason For Visit Description Start Date Postop - subsequent visit Preliminary reason for visit data, not yet signed by the author as of left shoulder post Left reverse total shoulder using Equinoxe press-fit 6 mm Preserve stem a 0 humeral tray a 42/+0 humeral cup a 42 mm glenosphere and a standard glenoid baseplate. Subscapularis repair. on 02/09/2018 Preliminary reason for visit data, not yet signed by the author as of Chief Complaint Chief Complaint Description Start Date left shoulder post Left reverse total shoulder using Equinoxe press-fit 6 mm Preserve stem a 0 humeral tray a 42/+0 humeral cup a 42 mm glenosphere and a standard glenoid baseplate. Subscapularis repair. on 02/09/2018 Preliminary chief complaint data, not yet signed by the author as of Instructions Instruction Description Start Date CompletedPatient advised to follow-up with Primary Care Physician for BMI management. Plan of Care Type Date Detail Appointment 08:15 AM Ranjit Lemus MD, [address], [place], [address], Appointment 08:15 AM Ranjit Lemus MD, [address], [place], [address], Pending order XR SHOULDER 2 VWS-LT Pending order XR SHOULDER 2 VWS-LT Medications Medication Instructions Start Stop Generic Name NDC Provider Date Date TYLENOL EXTRA two tablets / ACETAMINOPHEN [id number] Scot D STRENGTH 500 MG every eight 08 De León DO TABS hours as needed for pain AMOXICILLIN 500 Take 4 tablets / AMOXICILLIN [id number] Leigh MG TABS 1 hour before [facility] PA-C procedure ADVIL 200 MG take 1 to 2 / IBUPROFEN [id number] Anya TABS tablets every 6 30 [place] hours as needed REFRIGERATION BRAZER/SOLDERER-TUBING ASSEMBLER AMITRIPTYLINE 1 tablet daily / AMITRIPTYLINE 50230964272 Anya HCL 25 MG TABS 31 HCL [place] REFRIGERATION BRAZER/SOLDERER-TUBING ASSEMBLER ONDANSETRON HCL 1 tablet every / ONDANSETRON HCL 56774793438 Anya TABS 6 hours 31 TABS [place] REFRIGERATION BRAZER/SOLDERER-TUBING ASSEMBLER LEFLUNOMIDE 10 1 tablet daily / LEFLUNOMIDE 03459019743 Anya MG TABS 31 [place] REFRIGERATION BRAZER/SOLDERER-TUBING ASSEMBLER FLUOXETINE HCL 1 tablet daily / FLUOXETINE HCL 26897921550 Anya 40 MG CAPS 31 [place] REFRIGERATION BRAZER/SOLDERER-TUBING ASSEMBLER ROSUVASTATIN 1 tablet daily / ROSUVASTATIN 01770479600 Anya CALCIUM 10 MG 31 CALCIUM [place] TABS REFRIGERATION BRAZER/SOLDERER-TUBING ASSEMBLER HUMIRA PEN 40 bi-weekly / ADALIMUMAB 71874192804 Scot D MG/0.8ML PNKT 20 De León DO XTAMPZA ER 27 MG two tablets / OXYCODONE 12213237064 Scot D C12A daily for pain 20 De León DO PREDNISONE 10 MG one tablet as / PREDNISONE 80772833695 Scot D TABS needed for pain 20 De León DO ARAVA 10 MG TABS one tablet / LEFLUNOMIDE 34908545734 Scot D daily 20 De León DO BUSPIRONE HCL 5 one tabled as / BUSPIRONE HCL 15926291675 Scot D MG TABS needed 20 De León DO LISINOPRIL 5 MG one tablet once / LISINOPRIL 55071922885 Scot D TABS a day 08 De León DO PLAVIX 75 MG once daily / CLOPIDOGREL 33499585234 Anya TABS 08 BISULFATE [place] REFRIGERATION BRAZER/SOLDERER-TUBING ASSEMBLER NITROSTAT 0.4 MG takes as / NITROGLYCERIN 39762761909 Rosanna Quintero SUBL directed as 08 ACCOUNTING ASSISTANT needed CARVEDILOL 6.25 takes 1 tablet / CARVEDILOL 18950701098 Rosanna Quintero MG TABS twice a day 08 ACCOUNTING ASSISTANT MELOXICAM 15 MG takes 1 tablet / MELOXICAM 01760526519 Rosanna Quintero TABS once a day 08 ACCOUNTING ASSISTANT OMEPRAZOLE 40 MG takes 1 capsule / OMEPRAZOLE 09785680226 Rosanna Quintero CPDR once a day 08 ACCOUNTING ASSISTANT RANEXA 1000 MG takes 2 tablets / RANOLAZINE 54545085737 Rosanna Quintero [id number] once a day 08 ACCOUNTING ASSISTANT Conditions or Problems Problem Name Problem Onset Status Entry Provider Comment Standard Annotate Code Date Date Description Status post Z96.612 Active Leigh 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 [place] left artificial arthroplasty PA-C shoulder joint of left shoulder Complete 045442432 Active Leigh Full thickness rotator cuff (SNOMED CT) 04/04 04/04 [place] rotator cuff tear or PA-C tear rupture of left shoulder, not specified as traumatic Impingement 807140503 Active Anya Impingement syndrome, (SNOMED CT) 03/08 03/08 [place] syndrome of shoulder, REFRIGERATION BRAZER/SOLDERER-TUBING ASSEMBLER shoulder region left Cervical 53162808 Active Anya Spinal stenosis stenosis of (SNOMED CT) 03/08 03/08 [place] in cervical spinal canal REFRIGERATION BRAZER/SOLDERER-TUBING ASSEMBLER region S/P lumbar 10443413324 Active Anya History of fusion 106 (SNOMED 08/05 08/[address]) REFRIGERATION BRAZER/SOLDERER-TUBING ASSEMBLER Spondylolist 55921232791 Active Scot D 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 Vital Signs Date Name Value Unit Description BMI (Body Mass 35.10 kg/m2 Body Mass Index Index) [Ratio] Preliminary vital sign data, not yet signed by the author as of BP Diastolic 84 mm[Hg] blood pressure, diastolic Preliminary vital sign data, not yet signed by the author as of BP Systolic 127 mm[Hg] blood pressure, systolic Preliminary vital sign data, not yet signed by the author as of Heart Rate 75 /min pulse rate E&M Preliminary vital sign [...] Office Visit: Postop - subsequent visit, Rm: 40 MEDS REVIEW Done Documentation of current medications (procedure) Preliminary observation data, not yet signed by the author as of XRAY HX of the left xray history shoulder on 02/16/2018 at [facility] Preliminary observation data, not yet signed by the author as of Preliminary observation data, not yet signed by the author as of Clinical Summary: HMSPatientID OOP account number Procedures Code Procedure Name Date Entry Date [id number]-[id number] Physical Therapy G8730 Pain assessment documented as positive - follow-up documented G8427 Current medications documented 1036F Tobacco screening was negative - non user G8417 BMI documented as above normal parameters - follow-up documented G8783 Blood pressure within normal parameters - no follow-up required [facility]-[id number] Patient Encounter Medications Administered No information available. [...]
--- OUTSIDE RECORDS SUMMARY | 2018-05-31 04:29 | XMS RPT_ITS ---
:1955 Author Organization OHIP Support Name Relationship Address Phone D Unavailable Unavailable Unavailable PFLUGH, CORRY Unavailable [address] + [place] [address] PFLUGH, JAVIER Unavailable [address] + [place] [address] D Unavailable Unavailable Unavailable PFLUGH, CORRY Unavailable [address] + [place] [address] PFLUGH, JAVIER Unavailable [address] + [place] [address] D Unavailable Unavailable Unavailable PFLUGH, CORRY Unavailable [address] + [place] [address] PFLUGH, JAVIER Unavailable [address] + [place] [address] D Unavailable Unavailable Unavailable PFLUGH, CORRY Unavailable [address] + [place] [address] PFLUGH, JAVIER Unavailable [address] + [place] [address] D Unavailable Unavailable Unavailable PFLUGH, CORRY Unavailable [address] + [place] [address] PFLUGH, JAVIER Unavailable [address] + [place] [address] D Unavailable Unavailable Unavailable PFLUGH, CORRY Unavailable [address] + [place] [address] PFLUGH, JAVIER Unavailable [address] + [place] [address] D Unavailable Unavailable Unavailable PFLUGH, CORRY Unavailable [address] + [place] [address] PFLUGH, JAVIER Unavailable [address] + [place] [address] D Unavailable Unavailable Unavailable PFLUGH, CORRY Unavailable [address] + [place] [address] D Unavailable Unavailable Unavailable PFLUGH, CORRY Unavailable [address] + [place] [address] D Unavailable Unavailable Unavailable PFLUGH, CORRY Unavailable [address] + [place] [address] PFLUGH, JAVIER Unavailable [address] + [place] [address] D Unavailable Unavailable Unavailable PFLUGH, CORRY Unavailable [address] [phone] [place] [address] D Unavailable Unavailable Unavailable PFLUGH, CORRY Unavailable [address] [phone] [place] [address] D Unavailable Unavailable Unavailable D Unavailable Unavailable Unavailable PFLUGH, CORRY Unavailable [address] [phone] [place] [address] D Unavailable Unavailable Unavailable PFLUGH, CORRY Unavailable [address] [phone] [place] [address] PFLUGH, JAVIER Unavailable [address] + [place] [address] D Unavailable Unavailable Unavailable PFLUGH, CORRY Unavailable [address] [phone] [place] [address] PFLUGH, JAVIER Unavailable [address] + [place] [address] D Unavailable Unavailable Unavailable PFLUGH, CORRY Unavailable [address] [phone] [place] [address] PFLUGH, JAVIER Unavailable [address] + [place] [address] D Unavailable Unavailable Unavailable PFLUGH, CORRY Unavailable [address] [phone] [place] [address] PFLUGH, JAVIER Unavailable [address] + [facility] [place] [address] Care Team Providers Name Role Phone VALDO CHAVEZ (CITY ASSESSOR) Attending Unavailable CEBUL III, YONNY A Attending Unavailable TERI JHA (VERIFYING SPECIALIST) Attending Unavailable CEBUL III, YONNY A Attending Unavailable JESSEE BANKS Attending Unavailable Cebul III, Yonny Primary Care Unavailable JESSEE BANKS Consulting Unavailable Vellanki, Klaudia Attending Unavailable Vellanki, Klaudia Referring Unavailable Cebul III, Yonny Primary Care Unavailable Vellanki, Klaudia Attending Unavailable Cebul III, Yonny Primary Care Unavailable Vellanki, Klaudia Referring Unavailable Charleen Kuhn Consulting Unavailable Cebul III, Yonny Primary Care Unavailable Shelley Boss Attending Unavailable Basali, Ayman Attending Unavailable Cebul III, Yonny Primary Care Unavailable Vellanki, Klaudia Attending Unavailable Vellanki, Klaudia Referring Unavailable Cebul III, Yonny Primary Care Unavailable Melani Toledo Attending Unavailable Roof, Bunny H Attending Unavailable Cebul III, Oynny Referring Unavailable Cebul III, Yonny Primary Care Unavailable Basali Ayman Attending Unavailable Basali, Ayman Referring Unavailable Cebul III, Yonny Primary Care Unavailable Vellanki, Klaudia Attending Unavailable Vellanki, Klaudia Referring Unavailable Cebul III, Yonny Primary Care Unavailable Vellanki, Klaudia Attending Unavailable Roof, Bunny H Referring Unavailable Cebul III, Yonny Primary Care Unavailable Vellanki, Klaudia Attending Unavailable Roof, Bunny H Referring Unavailable Cebul III, Yonny Primary Care Unavailable Anya Squires CITY ASSESSOR-C Attending Unavailable OpsitnickAnya CITY ASSESSOR-C Referring Unavailable Cebul III, Yonny Primary Care Unavailable BasaliGenevieveman Consulting Unavailable Roof, Bunny H Consulting Unavailable Vellanki, Klaudia Attending Unavailable Cebul III, Yonny Primary Care Unavailable Elizabeth, [place] Attending Unavailable Cebul III, Yonny Referring Unavailable JESSEE BANKS Attending Unavailable JESSEE BANKS Referring Unavailable Cebul III, Yonny Primary Care Unavailable Cebul III, Yonny Attending Unavailable Cebul III, Yonny Referring Unavailable Cebul III, Yonny Primary Care Unavailable PROBLEMS PROBLEMS DATE TYPE CONDITION / CODE ATTENDING STATUS SOURCE 02/07/2018 Unknown M75.122 - Complete JESSEE BANKS Active [place] rotator cuff tear or Community rupture of left Hospital shoulder, not Repository specified as traumatic / M75.122(ICD-10) 02/07/2018 Unknown I25.10 - Elizabeth, [place] Active [place] Atherosclerotic heart Community disease of [place] [facility] coronary artery Repository without angina pectoris / I25.10(ICD-10) 02/07/2018 Unknown Z95.1 - Presence of Elizabeth, Charlie Active [place] aortocoronary bypass Community graft / Z95.1(ICD-10) Hospital Repository 02/07/2018 Unknown Z95.9 - Presence of [place], Charlie Active [place] [facility] implant and graft, Hospital unspecified / Repository Z95.9(ICD-10) 02/07/2018 Unknown Z01.810 - Encounter Elizabeth, [place] Active [place] for preprocedural [facility] cardiovascular Hospital examination / Repository Z01.810(ICD-10) 02/07/2018 Unknown I10 - Essential Elizabeth, [place] Active [place] (primary) Community hypertension / Hospital I10(ICD-10) Repository 02/07/2018 Unknown E78.00 - Pure Elizabeth, [place] Active [place] hypercholesterolemia, Community unspecified / Hospital E78.00(ICD-10) Repository 01/13/2018 Unknown E78.5 - Opsitnick, Active [place] Hyperlipidemia, Anya CITY ASSESSOR-C Community unspecified / Hospital E78.5(ICD-10) Repository 01/11/2018 Unknown M06.00 - Rheumatoid Vellanki, Klaudia Active [place] arthritis without Community rheumatoid factor, Hospital unspecified site / Repository M06.00(ICD-10) 08/17/2017 Unknown Z79.899 - Other long Vellanki, Klaudia Active [place] term (current) drug Community therapy / Hospital Z79.899(ICD-10) Repository 08/17/2017 Unknown M25.511 - Pain in Vellanki, Klaudia Active [place] right shoulder / Community M25.511(ICD-10) Hospital Repository 08/17/2017 Unknown M17.0 - Bilateral Vellanki, Klaudia Active [place] primary Community osteoarthritis of Hospital knee / M17.0(ICD-10) Repository 08/17/2017 Unknown 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, 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 / Community Q66.7(ICD-10) Hospital Repository 08/17/2017 Unknown K21.0 - Vellanki, Klaudia Active [place] Gastro-esophageal Community reflux disease with Hospital esophagitis / Repository K21.0(ICD-10) 08/17/2017 Unknown I70.90 - Unspecified Klaudia Wilburn Active [place] atherosclerosis / Community I70.90(ICD-10) Hospital Repository 08/17/2017 Unknown M47.897 - Other Klaudia Wilburn Active [place] spondylosis, Community lumbosacral region / Hospital M47.897(ICD-10) Repository 08/17/2017 Unknown M47.892 - Other Klaudia Wilburn Active [place] spondylosis, cervical Community region / Hospital M47.892(ICD-10) Repository 07/22/2017 Unknown M54.9 - Dorsalgia, Basali, Iron Active [place] unspecified / Community M54.9(ICD-10) Hospital Repository 05/06/2017 Unknown M79.606 - Pain in Basali, Iron Active [place] leg, unspecified / Community M79.606(ICD-10) Hospital Repository PROCEDURES PROCEDURES No Procedure Records FoundRESULTS RESULTS CBC W/DIFF, AUTOMATED Collected: 03/28/2018 Status: F Source: [place] 4:42 PM [facility] REPOSITORY TYPE CODE TESTS RESULT OUT OF RANGE REFERENCE UNITS LAB L100.1000 4.4-11.0 K/mm3 Normal WBC 8.5 LAB L100.1200 4.6-6.2 M/mm3 Low RBC 3.97 LAB L100.1300 13.0-16.5 g/dl Normal HGB 13.3 LAB L100.1400 40-54 % Low HCT 39.5 LAB L100.1500 80-94 fL High MCV 99.5 LAB L100.1600 27.0-32.0 pg High MCH 33.5 LAB L100.1700 32-36 g/gl Normal MCHC 33.7 LAB L100.1810 11.6-14.6 % Normal RDW CV 14.0 LAB L100.1820 35.1-43.9 fl High RDW SD 50.4 LAB L100.1900 150-450 K/mm3 Normal PLT 195 LAB L100.2000 6.2-12.0 fl Normal MPV 8.6 LAB L100.2100 47-70 % Low NEUT% 42.0 LAB L100.2200 19-41 % High LY% 41.4 LAB L100.2300 0-10 % High MONO% 14.9 LAB L100.2400 0-5 % Normal EO% 1.4 LAB L100.2500 0-1 % Normal BASO% 0.1 LAB L100.2550 0.0-0.9 % Normal IM GRAN % 0.200 Result Comment: IG% - Immature Granulocytes (promyelocytes, myelocytes and metamyelocytes) > 1% indicates that a LEFT SHIFT is Present. LAB L100.2620 2.0-7.7 X10 3/uL Normal Absolute Neut 3.6 LAB L100.2720 0.83-4.51 X10 3/ul Normal Absolute Lymph 3.51 Performed By: #### L100.0100 #### [facility] [address] [place], [address] COMPREHENSIVE METABOLIC Collected: 03/28/2018 Status: F Source: [facility] 4:[address] [facility] REPOSITORY TYPE CODE TESTS RESULT OUT OF RANGE REFERENCE UNITS LAB L501.0100 74-106 mg/dL High GLU 140 Result Comment: Fasting Glucose result greater than or equal to 126 mg/dL suggests DIABETES MELLITUS per A.D.A. criteria. Please note revised GLUCOSE reference range effective 2017. LAB L501.1000 7-18 mg/dL High BUN 19 LAB L501.1100 0.70-1.30 mg/dL Normal CREAT,SERUM 0.96 Result Comment: The validity of the calculated GFR AND GFRAA in patients over 70 years has not been determined. Clinical correlation is essential. LAB L501.1110 >60 mL/min Normal EST GFR 85 Result Comment: Non- GFR Calc LAB L501.1115 >60 mL/min Normal EST GFR - AA 103 Result Comment: GFR Calc LAB L501.1300 10-20 RATIO Normal BUN/CRE 19.8 LAB L501.1500 6.4-8.2 g/dL T Normal PROT 7.1 LAB L501.1800 3.2-5.0 g/dL Normal ALB 3.5 LAB L501.1950 2.2-4.2 g/dL Normal GLOB 3.6 LAB L501.2000 0.9-2.4 RATIO Normal A/G 1.0 LAB L501.2200 8.5-10.1 mg/dL CA Normal 8.7 LAB L501.4100 15-37 U/L Normal AST 19 LAB L501.4305 45-117 U/L High ALK P 144 LAB L501.4405 16-61 U/L Normal ALT 30 LAB L501.4600 0.20-1.00 mg/dL T Normal BILI 0.50 LAB L501.5300 136-145 mmol/L NA Normal 139 LAB L501.5600 3.5-5.1 mmol/L K Normal 3.8 LAB L501.5900 98-107 mmol/L CL Normal 106 LAB L501.6100 21.0-32.0 mmol/L Normal CO2 26.0 LAB L501.6200 5-15 Normal GAP 7 Performed By: #### L500.4050 #### [facility] [address] [place], [address] INITAL EVALUATION (1) Observed: 02/28/2018 Status: F Source: [place] - PT 8:[address] [facility] REPOSITORY [facility] [address] [place] [address]. [address] [place] [address] / REHABILITATION SERVICES INITIAL EVALUATION MR#: [id number] Acct: [id number] Name: ANTONY MUJICA Rep #: [id number] : 1955 62 From: Rahat Goldsmith DPT Referring DrNuno: Status: REG RCR Insurance: [facility] PART A B Patient's Visit Information ANTONY MUJICA is a 62 year old M referred to Physical Therapy by CHARLEEN TAYLOR with a diagnosis of L reverse total shoulder. Date of Evaluation: 02/24/18 Physical Therapist: Rahat Goldsmith DPT - Visit Plan Frequency: 2x /Week Duration: 8 weeks Plan: Start with PROM, progress per protocol. Add in heat pre treatment to increase tolerance to stretching. - Subjective Findings: Pt. is here today for his initial evaluation with diagnosis of L reverse total shoulder. Pt. reports I am actually doing pretty well. Pt. reports being HEP compliant wtih wearing sling and pendulums. DOS: 02/17/18. Pt. reports seeing physician who was pleased with current status. Pt. denies N/T in either UE. Pt. reports minimal pain, except when he trys to sleep. Pt. has greatest pain with attempting to sleep. Pt. reports weaning him self off his medication. Pt. 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 - Pain L shoulder Pain Intensity (Out of 10): 1 Pain Intensity Range: 0, 4 - Objective POSTURE: Pt. has normal shoulder height. Pt. has L UE is guarded posture without sling. Pt. has slight forward shoulder. PALPATION: Pt. has normal sensation to light and sharp touch. Pt. has normal well healing incision. No signs of infection. No N/T in either UEs. NEURO: ALl normal, no issues. ROM: R shoulder- AROM full wihtout issues. L shoulder- PROM- flexion 110deg, abd 98deg, ER 10deg. Normal elbow flexion and extension. MMT: RUE- 5/5 throughout; LUE- wrist 5/5 throughout; elbow- 5/5 throughout; shoulder- not testing due to surgery. - Goals Goal 1:: Pt. to be I with HEP. Goal Time Frame: 4-6 Weeks Goal 2:: Pt. to have increased PROM of L shoulder to full without increase in symptoms. Goal Time Frame: 4-6 Weeks Goal 3:: Pt. to have no pain at rest and sleep throughout the night without increase in symptoms. Goal Time Frame: 4-6 Weeks Goal 4:: Pt. to have increased AAROM of L shoulder to 75% of full motion. Goal Time Frame: 6-8 Weeks Goal 5:: Pt. to have increased strength of L shoulder to 4/5 throughout. Goal Time Frame: 8-12 Weeks - Rehabilitation Potential Physical Therapy Diagnosis: Pt. has signs and symptoms consistent with L forms builder total shoulder. Pt. has subsequent hypomobility and weakness. Pt. would benefit from PT to increase ROM, decrease pain progressing to strengthening in order to get back all recreational activities without limitations. Rehabilitation Potential: Excellent - Anticipated Interventions Patient/Client Instruction: Educate patient on: Condition, Plan of Care, Risk Factors, Benefits of Fitness Program For the Purpose of:: To improve decision making, To facilitate caregiver knowledge, To improve self management, To prevent re-injury, To improve ability to perform tasks related to life management, To improve tolerance to ADL's Therapeutic Exercise to Include: Strength training, Postural training, Flexibilty training, Passive ROM, Active ROM, Scapular Strength/Stabilization For the Purpose of:: To decrease pain, To decrease swelling/inflammation, To increase ROM, To improve nutrient delivery to tissue, To increase oxygenation perfusion, To improve health of tissue, To decrease soft tissue restriction, To increase flexibility/ROM Manual Therapy Techniques to Include: Mobilization, Passive ROM, Soft tissue mobilization For the Purpose of:: To decrease pain, To increase ROM, To improve nutrient delivery to tissue, To increase oxygenation perfusion, To improve health of tissue, To decrease soft tissue restriction Thank you for the opportunity to evaluate your patient. For Medicare and Medicare HMO plans, please review the plan of care and approve it. It will need to be FAXED BACK to us at [phone] for Medicare purposes. For Medicare only, by signing this I certify the plan of care. Please let me know if there are questions or concerns regarding this plan of care. Physician Signature: Date: <Electronically signed by Rahat Goldsmith DPHemal> 02/28/18 0836 CC: Yonny Cueto III, MD CLS Signed GLUCOSE Collected: 02/08/2018 Status: F Source: [place] 6:45 [facility] REPOSITORY TYPE CODE TESTS RESULT OUT OF RANGE REFERENCE UNITS LAB L501.0100 74-106 mg/dL High GLU 155 Result Comment: Fasting Glucose result greater than or equal to 126 mg/dL suggests DIABETES MELLITUS per A.D.A. criteria. Please note revised GLUCOSE reference range effective 2017. Performed By: #### L501.0100 #### [facility] [place], [address] HEMOGLOBIN A1C Collected: 02/08/2018 Status: F Source: [place] 6:[address] [facility] REPOSITORY TYPE CODE TESTS RESULT OUT OF RANGE REFERENCE UNITS LAB L501.9985 4.2-6.3 % High HGB A1C 6.9 Performed By: #### L501.9985 #### [facility] [address] [place], [address] CNOV Observed: 02/07/2018 Status: COMPLETED Source: [place] 4:40 PM [facility] REPOSITORY Office Visit (FAMPWS) ANTONY MUJICA Kira ([id number]) 1955 M Date Time Provider Department 02/07/18 4:40 PM YONNY CUETO III During your visit today, we recorded the following information about you: Pulse Respiration Blood pressure Weight 83/minute 16/minute 135/89 104.3 kg Yonny Cueto III MD 02/07/2018 5:59 PM Addendum SUBJECTIVE: This is a 62 year old male that is here today for pre-op evaluation prior to planned surgery for rotator cuff tendons. Reviewed office note of flight engineer inspector Dr. Johnson on 02/03/18: He described the [...] Anxiety 04/02/2011 - Atherosclerotic heart disease of [place] coronary artery without angina pectoris - Bilateral extracranial carotid artery stenosis - Bulge of cervical disc without myelopathy 03/23/2014 [facility] - see scanned documents - Disc bulge A-6-I8-C-6-C-7 - Cataract extraction status, right eye 01/18/15 Right eye-Dr. Lin - Coronary atherosclerosis of unspecified type of vessel, [place] or graft 2 coronary artery stents - DDD (degenerative disc disease), lumbar 07/22/2017 - Depression 04/02/2011 - Essential hypertension, benign - Fibromyalgia 12/02/2010 - GERD (gastroesophageal reflux disease) 07/15 by EGD - Ischemic cardiomyopathy - Lumbar radiculopathy 07/22/2017 - Nausea - Osteoporosis 03/19/2014 [facility] - see scanned documents - Other and [...] can be controlled PLAN: FBS, HbA1c at [facility] on 02/08 pre-op form faxed to Dr Tavarez--may need to give medication for glucose pre-0p same medications Avoid steroids healthy weight losing diet and regular exercise eat less sugar, bread, potato, pasta, rice, corn, corn syrup, saturated fats return to office 1 mo to follow probable diabetes mellitus RUSSELL Simon MD, III MD 02/07/2018 5:00 PM Signed PLAN: FBS, HbA1c at [facility] on 12/4 pre-op form faxed to Dr Tavarez same medications healthy weight losing diet and regular exercise eat less sugar, bread, potato, pasta, rice, corn, corn syrup, saturated fats return to office 1 mo to follow probable diabetes mellitus Yonny Cueto III MD Referring Provider: SELF [200] Allergies As of Date: 02/07/2018 Noted Allergy Reaction ENTEX PSE (PSEUDOEPHEDRINE-GUAIFE*11/09/2006 Comments: chest pain Date Reviewed: 02/07/2018 Reviewed by: Mary Carmen ([facility]) JULIET Hernandez - Fully Assessed Primary Visit Diagnosis:Pre-operative examination [Z01.818] Other Visit Diagnoses:Complete tear of right rotator cuff [M75.121] Hyperglycemia [R73.9] Atherosclerosis of [place] coronary artery of [place] heart without angina pectoris [I25.10] Essential hypertension [...] Date 02/07/2018 Noted Resolved HYPERLIPIDEMIA NEC/NOS [E78.5] [place] INF/POST SUBSEQNT EPISD CARE [I21.19] CORON ATHEROSCL [facility] [place] CORON VESSEL [I25.10] Cervical disc disorder with [...] from your clinician: PLAN: FBS, HbA1c at [facility] on 02/08 pre-op form faxed to Dr Tavarez same medications healthy weight losing diet and regular exercise eat less sugar, bread, potato, pasta, rice, corn, corn syrup, saturated fats return to office 1 mo to follow probable diabetes mellitus Yonny Cueto III MD Encounter Status:Closed by YONNY CUETO III, MD on 02/07/18 PROGRESS Observed: 02/07/2018 Status: COMPLETED Source: [place] 4:39 PM [facility] REPOSITORY O ID: [id number] Author: Yonny Cueto III Service: (none) Author Type: Physician Type: Progress Notes Filed: 02/07/2018 5:59 PM Note Text: SUBJECTIVE: This is a 62 year old male that is here today for pre-op evaluation prior to planned surgery for rotator cuff tendons. Reviewed office note of flight engineer inspector Dr. Johnson on 02/03/18: He described the [...] inferoposterior wall, subsequent episode of care ([facility]) - Anxiety 04/02/2011 - Atherosclerotic heart disease of [place] coronary artery without angina pectoris - Bilateral extracranial carotid artery stenosis - Bulge of cervical disc without myelopathy 03/23/2014 [facility] - see scanned documents - Disc bulge Y-3-B0-C-6-C-7 - Cataract extraction status, right eye 01/18/15 Right eye-Dr. Lin - Coronary atherosclerosis of unspecified type of vessel, [place] or graft 2 coronary artery stents - DDD (degenerative disc disease), lumbar 07/22/2017 - Depression 04/02/2011 - Essential hypertension, benign - Fibromyalgia 12/02/2010 - GERD (gastroesophageal reflux disease) 07/15 by EGD - Ischemic cardiomyopathy - Lumbar radiculopathy 07/22/2017 - Nausea - Osteoporosis 03/19/2014 [facility] - see scanned documents - Other and [...] can be controlled PLAN: FBS, HbA1c at [facility] on 02/08 pre-op form faxed to Dr Tavarez--may need to give medication for glucose pre-0p same medications Avoid steroids healthy weight losing diet and regular exercise eat less sugar, bread, potato, pasta, rice, corn, corn syrup, saturated fats return to office 1 mo to follow probable diabetes mellitus Yonny Cueto III MD BASIC METABOLIC Collected: 02/07/2018 Status: F Source: [place] PROFILE (BMP) 6:[address] [facility] REPOSITORY TYPE CODE TESTS RESULT OUT OF [...] GAP 10 Performed By: #### L500.2500 #### [facility] [address] [place], [address] CBC W/DIFF, AUTOMATED Collected: 02/07/2018 Status: F Source: [place] 6:[address] [facility] REPOSITORY TYPE CODE TESTS RESULT OUT OF [...] Lymph 2.95 Performed By: #### L100.0100 #### [facility] [address] [place], [address] VITAMIN D,25 HYDROXY Collected: 02/07/2018 Status: F Source: [place] 6:[address] [facility] REPOSITORY TYPE CODE TESTS RESULT OUT OF REFERENCE UNITS RANGE LAB L506.1000 29.95-100.01 ng/mL Low Vitamin D 29.6 25-OH Result Comment: Vitamin D 25(OH) Status Range Deficiency <20 ng/mL (50nmol/L) Insujo-annciency 20 - 30 ng/mL (50 - 75 nmol/L) Sufficiency 30 - 100 ng/mL (75 - 250 nmol/L) Toxicity >100 ng/mL (>250 nmol/L) Performed By: #### L506.1000 #### [facility] [address] [place], [address] CARDIOLOGY VISIT Observed: 02/03/2018 Status: F Source: [place] REPORT 9:[address] [facility] REPOSITORY [facility] [address] [place] [address] OFFICE VISIT Date of Service: 02/03/18 MR#: [id number] Acct: [id number] Name: ANTONY MUJICA Rep #: [id number] : 1955 Provider: Charlie Johnson MD Age/Sex: 62/M Location: [facility] Status: Signed HPI HPI Chief Complaint: Follow up and preoperative cardiac [...] and will be undergoing surgery at the [facility] next week. He has had no [...] Lt brachial Intake Visit Reasons: 6 M FU Customer Solutions Coordinator Required: No Is patient in pain?: No Allergies No Known Allergies Allergy (Verified 02/03/18 09:22) Medications Carvedilol [Coreg (Beta Petra)] 6.25 mg PO BID 07/03/14 [History Confirmed [...] PO Q6H PRN 02/03/18 [History Confirmed 02/03/18] PFSH Medical History Bilateral carotid artery stenosis (Chronic) Atherosclerotic heart disease of [place] coronary artery without angina pectoris (Chronic) Old myocardial infarction (Chronic) Ischemic cardiomyopathy (Chronic) long-term use of drug (Chronic) Rheumatoid arthritis (Chronic) [...] continue on his aspirin and continue his beta-petra as well. 2. Aortocoronary bypass status Z95.1 CABG X 5v on 05/09, Lt IT to LAD, SVG to RI, 1st Diag. of LAD, SVG to CFX, RCA Plan He is status post coronary bypass surgery. His last catheterization in 2017 demonstrated total occlusion of the [place] mid LAD, the JOHN to the LAD [...] Other Orders Orders: Follow Up 6 Months ([facility]) Coding Level of Care [...] Signature: Date (if applicable) CC: STEPHANIA TAVAREZ; Yonny Cueto III, MD 12 LEAD EKG PERFORMED Observed: 02/03/2018 Status: F Source: [place] BY [facility] 9:[address] [facility] REPOSITORY [facility] [address] [place] [address] 12 Lead EKG performed by CARMELITA 02/03/18 0917 MR#: [id number] Acct: [id number] Name: ANTONY MUJICA W Rep #: [id number] : 1955 62 From: Charlie Johnson MD Attending Dr: Charlie Johnson MD Status: DEP [facility] Ordering Dr: Charlie Johnson MD Date: 02/03/18 Location: [facility] [place] [place] Sex: M C Admitted: BMS/12 Lead EKG performed by [facility] ECG Report Interpretation Sinus Rhythm - Inferior -lateral infarct (age undetermined) -Prominent R(V1) -true posterior extension of inferior [place] -Left axis -may be secondary to infarct. ABNORMAL Electronically signed on 03/29/2018 at 15:36 by Charlie Johnson Software Version 8610 03/29/18 1540 Date Charlie Johnson MD CC: Yonny Cueto III, MD Date Dictated: 02/03/18916 Date Transcribed: 02/03/18916 Polyethylene Combiner: CO Signed UPPER EXT JOINT Observed: 01/13/2018 Status: F Source: [place] ONLY(ROUTINE) 6:[address] [facility] REPOSITORY [facility] Imaging Services [address] [place] [address] 33936 Upper Ext Joint Only(Routine) MR#: [id number] Acct: [id number] Name: ANTONY MUJICA W Rep #: [id number] : 1955 M 62 From: Mickey Terry MD PCP: Yonny Cueto III, MD Status: REG CLI Study: Upper Ext Joint Only(Routine) Date of Exam: 01/13/18 Exam# [id number] Ordering Dr: Anya Squires CITY ASSESSORAnujC STUDY: MRI LEFT SHOULDER REASON FOR EXAM: [...] , Service support , CC: Anya Squires; Yonny Cueto III, MD Polyethylene Combiner: Signed SPINE CERVICAL Observed: 01/13/2018 Status: F Source: [place] (ROUTINE) 6:[address] [facility] REPOSITORY [facility] Imaging Services [address] [place] [address] Spine Cervical (Routine) MR#: [id number] Acct: [id number] Name: ANTONY MUJICA Rep #: [id number] : 1955 M 62 From: Hattie Kemp MD PCP: Nory WELLS MD,Yonny Status: REG CLI Study: Spine Cervical (Routine) Date of Exam: 01/13/18 Exam# [id number] Ordering Dr: Anya Squires CITY ASSESSOR-C STUDY: MRI CERVICAL SPINE WITHOUT CONTRAST REASON [...] , Service support , CC: Anya Squires; Yonny Cueto III, MD Polyethylene Combiner: Signed URINE DRUG SCREEN Collected: 01/13/2018 Status: F Source: [place] (VISTA) 6:[address] [facility] REPOSITORY Order Comment: LIVER AND LIPID FOR DR LEWIS MED TOX FOR DR MCPHERSON Comments: URINE TOXICOLOGY [id number] RUN LOWEST TEST List of Drugs Taken [...] Normal NEGATIVE Performed By: #### L505.5000 #### [facility] [address] [place], [address] MISCELLANEOUS LAB Collected: 01/13/2018 Status: F Source: [place] PROCEDURE 6:[address] [facility] REPOSITORY Order Comment: LIVER AND LIPID FOR DR LEWIS MED TOX FOR DR MCPHERSON Comments: URINE TOXICOLOGY [id number] RUN LOWEST TEST Test(s) Ordered: URINE TOXICOLOGY [id number] RUN LOWEST TEST TYPE CODE TESTS RESULT OUT OF RANGE REFERENCE UNITS LAB L801.1541 Normal [facility] LAB TEST Result Comment: [id number] 6+OXYCODONE-BUND (ng/mL) DRUG RESULT SCREEN CUTOFF ____ [...] includes Oxydodone and Oxymorphone. TESTING PERFORMED AT [facility]. ORIGINAL REPORT ON FILE IN LAB CONTAINS ADDITIONAL TEST SITE INFORMATION. Performed By: #### L801.1541 #### [place] [facility] [place] [place], [address] LIVER PROFILE Collected: 01/13/2018 Status: F Source: [place] 6:[address] [facility] REPOSITORY Order Comment: LIVER AND LIPID FOR DR JOSHUA MOTA TOX FOR DR MCPHERSON Comments: URINE TOXICOLOGY [id number] RUN LOWEST TEST TYPE CODE TESTS RESULT [...] 0.12 Performed By: #### L500.3400, L500.4100 #### [facility] [address] [place], [place], [address] LIPID PROFILE Collected: 01/13/2018 Status: F Source: [place] 6:[address] [facility] REPOSITORY Order Comment: LIVER AND LIPID FOR DR LEWIS MED TOX FOR DR MCPHERSON Comments: URINE TOXICOLOGY [id number] RUN LOWEST TEST TYPE CODE TESTS RESULT [...] 58 Performed By: #### L500.3400, L500.4100 #### [facility] [address] [place], [place], [address] PROGRESS Observed: 12/24/2017 Status: COMPLETED Source: [place] 11:44 AM [facility] REPOSITORY HNO ID: [id number] Author: Teri Sullivan (Auto Salvage Worker) Pending Sale To [facility] Service: (none) Author Type: Nurse Practitioner Type: Progress Notes Filed: 12/24/2017 11:48 AM Note Text: This note was created using Synthaceriter. Subjective Antony Mujica is a 62 year old male. The history is provided by the patient and the spouse. No certified income tax preparer was used. URI He complains of cough, [...] 250 MG TABLET - see patient instructions Teri Jha APRN.CNP CNOV Observed: 12/24/2017 Status: COMPLETED Source: [place] 11:00 AM [facility] REPOSITORY Office Visit (FAMPWS) ANTONY MUJICA ([id number]) 1955 M Date Time Provider Department 12/24/17 11:00 AM TERI JHA (KANCHAN) FAMPWS During your visit today, we recorded the following information about you: Temperature Pulse Blood pressure Weight 97.4 degrees 88/minute 126/82 103.9 kg Teri Jha APRN.CNP 12/24/2017 11:37 AM Signed Home [...] help open respiratory and sinus passages. - [facility] [place] may offer relief of nasal and head [...] or before if your symptoms get worse. Teri Jha APRN.KANCHAN [facility] [address] [facility] [place] [address] Teri Jha APRN.CNP 12/24/2017 11:48 AM Signed This note was created using Synthaceriter. Subjective Antoyn Mujica is a 62 year old male. The history is provided by the patient and the spouse. No certified income tax preparer was used. URI He complains of cough, [...] 250 MG TABLET - see patient instructions Teri Jha APRN.VERIFYING SPECIALIST Referring Provider: SELF [200] Allergies As of Date: 12/24/2017 Noted Allergy Reaction ENTEX PSE (PSEUDOEPHEDRINE-GUAIFE*11/09/2006 Comments: chest pain Date Reviewed: 12/24/2017 Reviewed by: Teri Sullivan (Kanchan) Yudelka - Fully Assessed Reason for Visit: [...] Date 12/24/2017 Noted Resolved HYPERLIPIDEMIA NEC/NOS [E78.5] [place] INF/POST SUBSEQNT EPISD CARE [I21.19] CORON ATHEROSCL [place] CORON VESSEL [I25.10] Cervical disc disorder with [...] help open respiratory and sinus passages. - [facility] [place] may offer relief of nasal and head [...] or before if your symptoms get worse. Teri Jha APRN.VERIFYING SPECIALIST [facility] [address] [facility] [place] [address] Prescriptions ordered this encounter Disp Refills Start End AZITHROMYCIN 250 MG TABLET 1 Pa* 0 12/24/2017 Sig: Take 2 tablets by mouth day one, then 1 tablet daily until gone. Encounter Status:Closed by TERI JHA CNP on 12/24/17 COMPREHENSIVE METABOLIC Collected: 12/01/2017 Status: F Source: [facility] 4:[address] [facility] REPOSITORY TYPE CODE TESTS RESULT OUT OF [...] GAP 10 Performed By: #### L500.4050 #### [facility] [address] [place], [address] CBC W/DIFF, AUTOMATED Collected: 12/01/2017 Status: F Source: [place] 4:[address] [facility] REPOSITORY TYPE CODE TESTS RESULT OUT OF [...] Lymph 4.20 Performed By: #### L100.0100 #### [facility] [address] [place], [address] PROGRESS Observed: 10/25/2017 Status: COMPLETED Source: [place] 3:15 PM [facility] REPOSITORY HNO ID: [id number] Author: Tatiana Dan Service: (none) Author Type: Grab Hooker Type: Progress Notes Filed: 10/29/2017 1:02 PM Note Text: Updating .Tatiana Dan MA CNPTOUTREACH Observed: 10/25/2017 Status: COMPLETED Source: [place] 12:00 AM [facility] REPOSITORY Patient Outreach (FAMPWS) ANTONY MUJICA ([id number]) 1955 M Date Time Provider Department 10/25/17 TATIANA DAN) FAMPWS During your visit today, we recorded the following information about you: Tatiana Dan MA 10/29/2017 1:02 PM Signed Updating .Tatiana Dan MA Allergies As of Date: 10/25/2017 Noted Allergy Reaction ENTEX PSE (PSEUDOEPHEDRINE-GUAIFE*11/09/2006 Comments: chest pain Date Reviewed: 07/22/2017 Reviewed by: Mary Carmen ([facility]) JULIET Hernandez - Fully Assessed Reason for Visit: PHMA/Care Gap Outreach [1135] Order(s):LIPID PANEL - EXTERNAL [6368836] Order #: [id number] LDL CHOLESTEROL DIR [SQLDLDCT] Order #: [id number] GLUCOSE FASTING BLD EXTERNAL QAI [5444885] Order #: [id number] GLUCOSE FASTING BLD EXTERNAL QAI [9236771] Order #: [id number] Prescriptions as of 10/25/2017 Sig: ONE-A-DAY MEN'S [...] Date 10/25/2017 Noted Resolved HYPERLIPIDEMIA NEC/NOS [E78.5] [place] INF/POST SUBSEQNT EPISD CARE [I21.19] CORON ATHEROSCL [place] CORON VESSEL [I25.10] Cervical disc disorder with radiculopathy [M50.*INVALID FOR* More... Abdominal Pain [R10.9] INVALID FOR* GERD (gastroesophageal reflux disease) [K21.9] INVALID FOR* More... Rheumatoid arthritis (HCC) [M06.9] INVALID FOR* Depression [F32.9] INVALID FOR* Anxiety [F41.9] INVALID FOR* Osteoporosis [M81.0] INVALID FOR* More... Essential hypertension [I10] INVALID FOR* Vertebral compression fracture (HCC) [XOZ3197] INVALID FOR* DDD (degenerative disc disease), lumbar [M51.36]INVALID FOR* Lumbar radiculopathy [M54.16] INVALID FOR* Encounter Status:Closed by TATIANA DAN on 10/29/17 CBC W/DIFF, AUTOMATED Collected: 08/17/2017 Status: F Source: [place] 4:[address] [facility] REPOSITORY TYPE CODE TESTS RESULT OUT OF [...] Lymph 4.52 Performed By: #### L100.0100 #### [facility] [address] [place], [address] COMPREHENSIVE METABOLIC Collected: 08/17/2017 Status: F Source: [place] [facility] 4:[address] [facility] REPOSITORY TYPE CODE TESTS RESULT OUT OF [...] GAP 11 Performed By: #### L500.4050 #### [facility] [address] [place], [address] PROGRESS Observed: 07/22/2017 Status: COMPLETED Source: [place] 9:41 AM [facility] REPOSITORY HNO ID: [id number] Author: Yonny Cueto III Service: (none) Author Type: Physician [...] more productive/active. 2. known ASHD. s/p inf [place] 2003. Angioplasty 04/2016. No chest pain, angina, PAIZ. 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 known hypertension--previously well controlled. Quit smoking yrs ago PAST MEDICAL HISTORY Diagnosis Date - Acute myocardial infarction of inferoposterior wall, subsequent episode of care ([facility]) - Anxiety 04/02/2011 - Atherosclerotic heart disease of [place] coronary artery without angina pectoris - Bilateral extracranial carotid artery stenosis - Bulge of cervical disc without myelopathy 03/23/2014 [facility] - see scanned documents - Disc bulge D-8-M1-C-6-C-7 - Cataract extraction status, right eye 01/18/15 Right eye-Dr. Lin - Coronary atherosclerosis of unspecified type of vessel, [place] or graft 2 coronary artery stents - Depression 04/02/2011 - Essential hypertension, benign - Fibromyalgia 12/02/2010 - GERD (gastroesophageal reflux disease) 07/15 by EGD - Ischemic cardiomyopathy - Nausea - Osteoporosis 03/19/2014 [facility] - see scanned documents - Other and [...] MD CNOV Observed: 07/22/2017 Status: COMPLETED Source: [place] 9:20 AM [facility] REPOSITORY [facility] ([id number]) 1955 M Date Time Provider Department 07/22/17 9:20 AM YONNY CUETO IIIWS During your visit today, we recorded the following information about you: Pulse Respiration Blood pressure Weight 84/minute 18/minute 174/104 104.8 kg Yonny Cueto III MD 07/22/2017 12:22 PM Signed [...] more productive/active. 2. known ASHD. s/p inf [place] 2003. Angioplasty 04/2016. No chest pain, angina, PAIZ. 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 known hypertension--previously well controlled. Quit smoking yrs ago PAST MEDICAL HISTORY Diagnosis Date - Acute myocardial infarction of inferoposterior wall, subsequent episode of care ([facility]) - Anxiety 04/02/2011 - Atherosclerotic heart disease of [place] coronary artery without angina pectoris - Bilateral extracranial carotid artery stenosis - Bulge of cervical disc without myelopathy 03/23/2014 [facility] - see scanned documents - Disc bulge Y-4-U3-C-6-C-7 - Cataract extraction status, right eye 01/18/15 Right eye-Dr. Lin - Coronary atherosclerosis of unspecified type of vessel, [place] or graft 2 coronary artery stents - Depression 04/02/2011 - Essential hypertension, benign - Fibromyalgia 12/02/2010 - GERD (gastroesophageal reflux disease) 07/15 by EGD - Ischemic cardiomyopathy - Nausea - Osteoporosis 03/19/2014 [facility] - see scanned documents - Other and [...] other medications proceed to surgery as planned Yonny Cueto III MD Referring Provider: SELF [200] Allergies As of Date: 07/22/2017 Noted Allergy Reaction ENTEX PSE (PSEUDOEPHEDRINE-GUAIFE*11/09/2006 Comments: chest pain Date Reviewed: 07/22/2017 Reviewed by: Mary Carmen ([facility]) JULIET Hernandez - Fully Assessed Reason for Visit: Medication Follow-up [270] Primary Visit Diagnosis:Atherosclerosis of [place] coronary artery of [place] heart without angina pectoris [I25.10] Other Visit [...] Date 07/22/2017 Noted Resolved HYPERLIPIDEMIA NEC/NOS [E78.5] [place] INF/POST SUBSEQNT EPISD CARE [I21.19] CORON ATHEROSCL [place] CORON VESSEL [I25.10] Cervical disc disorder with [...] other medications proceed to surgery as planned Yonny Cueto III MD Medications Discontinued During This Encounter oxyCODONE myristate (XTAMPZA ER) 13.* 07/22/2017 Class: Historical Med Route: ORAL Sig: Take 13.5 mg by mouth three times daily. Disc: Side Effects Encounter Status:Closed by YONNY CUETO III, MD on 07/22/17 INITAL EVALUATION (1) Observed: 07/07/2017 Status: F Source: [place] - [place] 7:[address] [facility] REPOSITORY [facility] [address] [place] [address]. [address] [place], [place] [address] Fax REHABILITATION SERVICES INITIAL EVALUATION MR#: [id number] Acct: [id number] Name: ANTONY MUJICA Rep #: [id number] : 1955 62 From: Olga Lidia Merida MPT Referring Dr.: Iron Mcpherson MD Status: REG RCR Insurance: [facility] MED[facility] PART A B Patient's Visit Information [...] here. He used to get injectins from [facility] and for awhile they have worked (8 [...] going to fuse 2 vertebrea together (Dr. Cesar Sauceda). He feels that he has leg [...] to be FAXED BACK to us at [phone] for Medicare purposes. Please let me know if there are questions or concerns regarding this plan of care. Physician Signature: Date: <Electronically signed by Olga Lidia Merida MPT> 07/07/17 1903 CC: Iron Mcpherson MD; oYnny Cueto III, MD Signed For Medicare only, by signing this I certify the plan of care. Physicians Signature Date CNPPATRICKUTRCHARLOTTE Observed: 07/06/2017 Status: COMPLETED Source: [place] 12:00 AM [facility] REPOSITORY Patient Outreach (FAMPST) VIVIANANTONY MEDRANO ([id number]) 1955 M Date Time Provider Department 07/06/17 YONNY CUETO III FAMPST During your visit today, we recorded the following information about you: Allergies As of Date: 07/06/2017 Noted Allergy Reaction ENTEX PSE (PSEUDOEPHEDRINE-GUAIFE*11/09/2006 Comments: chest pain Date Reviewed: 05/07/2017 Reviewed by: Mary Carmen ([facility]) JULIET Hernandez - Fully Assessed Visit Diagnosis:Medication management [Z79.899] Order(s):BASIC METABOLIC PNL [SQBMP] Order #: [id number] FUTURE LIPID PANEL BASIC [SQLIPB] Order #: [id number] FUTURE Prescriptions as of 07/06/2017 Sig: AMITRIPTYLINE [...] Date 07/06/2017 Noted Resolved HYPERLIPIDEMIA NEC/NOS [E78.5] [place] INF/POST SUBSEQNT EPISD CARE [I21.19] CORON ATHEROSCL [place] CORON VESSEL [I25.10] Cervical disc disorder with [...] CARDIOLOGY VISIT Observed: 06/18/2017 Status: F Source: [place] RE[place] 2:[address] [facility] REPOSITORY [facility] [address] [place] [address] OFFICE VISIT Date of Service: 06/18/17 MR#: [id number] Acct: [id number] Name: ANTONY MUJICA Rep #: [id number] : 1955 Provider: AZEEM Lewis Age/Sex: 62/M Location: [facility] Status: Signed HPI HPI Details: ANTONY MUJICA, [...] and will be undergoing surgery with the [facility] Dr. Po Sauceda on July 23. Pt [...] Pressure 138/84 Intake Visit Reasons: 6 M Customer Solutions Coordinator Required: No Accompanied by: none Is patient in pain?: No Allergies No Known Allergies Allergy (Verified 06/18/17 10:08) Medications Carvedilol [Coreg (Beta Petra)] 6.25 mg PO BID 07/03/14 [History Confirmed [...] artery stenosis (Chronic) Atherosclerotic heart disease of [place] coronary artery without angina pectoris (Chronic) Old myocardial infarction (Chronic) Ischemic cardiomyopathy (Chronic) long term care pharmacist use of drug (Chronic) Rheumatoid arthritis (Chronic) [...] from April 2016 showed total occlusion of [place] mid LAD, JOHN graft LAD patent, total [...] bilaterally Assessment AND Plan 1. Atherosclerosis of [place] coronary artery of [place] heart without angina pectoris I25.10 CABG X 5 on 05/09, Lt IT to LAD, SVG to RI, 1st Diag. of LAD, SVG to CFX, RCA; drug-eluting stent to RCA, mid RCA, and distal RCA in April 2016; Jovan - MAGED Wade EKG in office showed [...] continue to monitor this. He will continue beta-petra and GISSEL inhibitor. 3. Essential hypertension I10 MAGED Schroeder Patient's blood pressure is well-controlled today in the office. We will continue to monitor this. We will not make any medication regimen changes. 4. Pure hypercholesterolemia E78.00; E78.0 Plan - MAGED Wade Patient's most recent lipid panel from May showed cholesterol: 228, HDL: 44, LDL: 139, and triglycerides: 223. Patient stopped statin medication due to making him feel ill. He has been on Crestor in the past without issue. He will resume Crestor and repeat liver and lipid panel in approximately 4-6 months. 5. Bilateral carotid artery stenosis I65.23 Plan - MAGED Wade Carotid duplex ultrasound from April 2016 showed less than 50% stenosis of both right and left internal carotid. Patient continue current medications. He will begin Crestor as outlined above. 6. Pre-op examination Z01.818 Plan - MAGED Wade Patient will be undergoing back surgery by Dr. Po Sauceda of [facility] in July 2017. Patient is greater than 1 year since stenting to RCA. He will be able to disrupt both aspirin Plavix approximately 5-7 days prior to surgery. He should continue with beta-petra prior, during, and after surgery. He is [...] prior to saving. Follow Up 6 Months ([facility]) Coding Level of Care Code Off vis,est,level 3 Diagnoses Atherosclerosis of [place] coronary artery of [place] heart without angina pectoris I25.10 [place] vs. transplanted heart: [place] heart Ischemic cardiomyopathy I25.5 Essential hypertension I10 Hypertension type: essential hypertension Pure hypercholesterolemia E78.00; E78.0 Hyperlipidemia type: pure hypercholesterolemia Bilateral carotid artery stenosis I65.23 Pre-op examination Z01.818 Coding Level of Care Code Off vis,est,level 3 Diagnoses Atherosclerosis of [place] coronary artery of [place] heart without angina pectoris I25.10 [place] vs. transplanted heart: [place] heart Ischemic cardiomyopathy I25.5 Essential hypertension I10 Hypertension type: essential hypertension Pure hypercholesterolemia E78.00; E78.0 Hyperlipidemia type: pure hypercholesterolemia Bilateral carotid artery stenosis I65.23 Pre-op examination Z01.818 06/18/17 1356 <Electronically signed by Bunny UPC> Date Bunny Lewis CITY ASSESSOR-C 06/18/17 1441<Electronically signed by Charlie Johnson MD> Cosigner Signature: Date (if applicable) Charlie Johnson MD CC: Yonny Cueto III, MD; CESAR SAUCEDA 12 LEAD EKG PERFORMED Observed: 06/18/2017 Status: F Source: [place] BY [facility] 10:04 AM [address] [place] [address] 12 Lead EKG performed by [facility] 06/18/17 1003 MR#: [id number] Acct: [id number] Name: ANTONY MUJICA Rep #: [id number] : 1955 62 From: Bunny UPC Attending Dr: Bunny Lewis NP Status: DEP AMB Ordering Dr: Bunny Lewis Date: 06/18/17 Location: [facility] [place] [place] Sex: M C Admitted: [facility]/12 Lead EKG performed by [facility] ECG Report Interpretation Sinus Rhythm - (age undetermined) Extensive anterior-lateral and Old Inferior infarct -Prominent R(V1) -true posterior extension of inferior [place] -Left axis -may be secondary to infarct -Possible anterior fascicular block. ABNORMAL Electronically signed on 06/22/2017 at 08:51 by Charlie Johnson 06/22/17 0857 Date Bunny Remy Joshua CITY ASSESSOR-C CC: Yonny Cueto III, MD Date Dictated: 06/18/17 1003 Date Transcribed: 06/18/171002 Polyethylene Combiner: JUAN DIEGO Signed CBC W/DIFF, AUTOMATED Collected: 05/17/2017 Status: F Source: [place] 6:[address] [facility] REPOSITORY TYPE CODE TESTS RESULT OUT OF [...] Lymph 2.91 Performed By: #### L100.0100 #### [facility] [address] [place], [address] COMPREHENSIVE METABOLIC Collected: 05/17/2017 Status: F Source: [place] 6:[address] [facility] REPOSITORY Order Comment: CMP AND CBCD FOR SAL Order Date: 07/06/16 Order Info: [id number] - *Hepatic Function Panel Order Info: [id number] - *Lipid Profile CC PCP Comments: 12 [...] 7 Performed By: #### L500.4050, L501.4700 #### [facility] [address] [place] [place], [address] BILIRUBIN, DIRECT Collected: 05/17/2017 Status: F Source: [place] 6:[address] [facility] REPOSITORY Order Comment: CMP AND CBCD FOR SAL Order Date: 07/06/16 Order Info: [id number] - *Hepatic Function Panel Order Info: [id number] - *Lipid Profile CC PCP Comments: 12 hours fasting, may have water. TYPE CODE TESTS RESULT OUT OF RANGE REFERENCE UNITS LAB L501.4700 0.00-0.30 mg/dL Normal D BILI 0.07 Performed By: #### L500.4050, L501.4700 #### [facility] [address] [place], [address] LIPID PROFILE Collected: 05/17/2017 Status: F Source: [place] 6:[address] [facility] REPOSITORY Order Comment: CMP AND CBCD FOR SAL Order Date: 07/06/16 Order Info: [id number] - *Hepatic Function Panel Order Info: [id number] - *Lipid Profile CC PCP Comments: 12 [...] VLDL 45 Performed By: #### L500.4100 #### [facility] [address] [place], [address] PROGRESS Observed: 05/07/2017 Status: COMPLETED Source: [place] 11:08 AM [facility] REPOSITORY HNO ID: [id number] Author: Valdo Silverman (Azeem) Scott Service: (none) Author Type: [...] Has been referred to Dr.Scott Sauceda at [facility] for surgical consult, apt on 06/01/2017. [...] of care (HCC) - Anxiety 04/02/2011 - Bulge of cervical disc without myelopathy 03/23/2014 [facility] - see scanned documents - Disc bulge O-8-L7-C-6-C-7 - Cataract extraction status, right eye 01/18/15 Right eye-Dr. Lin - Coronary atherosclerosis of [place] coronary artery - Coronary atherosclerosis of unspecified type of vessel, [place] or graft 2 coronary artery stents - Depression 04/02/2011 - Fibromyalgia 12/02/2010 - GERD (gastroesophageal reflux disease) 07/15 by EGD - Nausea - Osteoporosis 03/19/2014 [facility] - see scanned documents - Other and unspecified hyperlipidemia - Rheumatoid arthritis(714.0) 12/02/2010 Previous Surgical History PAST SURGICAL HISTORY Procedure Laterality Date - CABG, ARTERY-VEIN, FIVE CABG, five grafts - CATARACT EXTRACTION HX 02/08/15 left eye-Dr. Riley MAN W/REM POLYP SNARE 07-09-09 [facility]-09-09 - MRI 01/17/2014 [facility] - Ordered by Dr. Ballard - MRI 03/26/2014 [facility] - see scanned documents - PERC TRANSL [...] side effects. - AMITRIPTYLINE 25 MG TABLET Valdo Chavez MSN VERIFYING SPECIALIST CNOV Observed: 05/07/2017 Status: COMPLETED Source: MERAZ 10:40 AM [facility] REPOSITORY Office Visit (FAMPWS) ANTONY MUJICA ([id number]) 1955 M Date Time Provider Department 05/07/17 10:40 AM VALDO CHAVEZ (CITY ASSESSOR) FAMPWS During your visit today, we recorded the following information about you: Pulse Respiration Blood pressure Weight 90/minute 18/minute 111/82 101.6 kg Valdo Chavez, MSN VERIFYING SPECIALIST 05/07/2017 6:38 PM Signed Chief Complaint Patient presents with: Back Pain Not sleeping HPI Antony Mujica is a 61 year old male who presents here today for Above Complaints. He is under the care of Dr. Mcpherson for chronic back pain, has had epidural injections, recent course of Prednisone- mild relief. Has been referred to Dr.Scott Sauceda at [facility] for surgical consult, apt on 06/01/2017. [...] of care (HCC) - Anxiety 04/02/2011 - Bulge of cervical disc without myelopathy 03/23/2014 [facility] - see scanned documents - Disc bulge M-9-D1-C-6-C-7 - Cataract extraction status, right eye 01/18/15 Right eye-Dr. Lin - Coronary atherosclerosis of [place] coronary artery - Coronary atherosclerosis of unspecified type of vessel, [place] or graft 2 coronary artery stents - Depression 04/02/2011 - Fibromyalgia 12/02/2010 - GERD (gastroesophageal reflux disease) 07/15 by EGD - Nausea - Osteoporosis 03/19/2014 [facility] - see scanned documents - Other and unspecified hyperlipidemia - Rheumatoid arthritis(714.0) 12/02/2010 Previous Surgical History PAST SURGICAL HISTORY Procedure Laterality Date - CABG, ARTERY-VEIN, FIVE CABG, five grafts - CATARACT EXTRACTION HX 02/08/15 left eye-Dr. Riley MAN W/REM POLYP SNARE 07-09-09 [facility] - [facility]/BX 07-09-09 - MRI 01/17/2014 [facility] - Ordered by Dr. Ballard - MRI 03/26/2014 [facility] - see scanned documents - PERC TRANSL [...] side effects. - AMITRIPTYLINE 25 MG TABLET Valdo Chavez, MSN VERIFYING SPECIALIST Referring Provider: SELF [200] Allergies As of Date: 05/07/2017 Noted Allergy Reaction ENTEX PSE (PSEUDOEPHEDRINE-GUAIFE*11/09/2006 Comments: chest pain Date Reviewed: 05/07/2017 Reviewed by: Mary Carmen ([facility]) JULIET Hernandez - Fully Assessed Reason [...] encounter OXYCODONE-ACETAMINOPHEN 10 MG-325 MG TABLET >> Mary Carmen Hernandez CMA, MA 05/07/2017 11:00 AM >> MARY CARMEN HERNANDEZ CMA WedMay 07, 2017 11:00 AM On hold Problem List As Of Date 05/07/2017 Noted Resolved HYPERLIPIDEMIA NEC/NOS [E78.5] [place] INF/POST SUBSEQNT EPISD CARE [I21.19] CORON ATHEROSCL [facility] [place] CORON VESSEL [I25.10] Cervical disc disorder with [...] and Disposition History Recorded Encounter Status:Closed by VALDO CHAVEZ VERIFYING SPECIALIST on 05/07/17 SPINE LUMBAR Observed: 05/06/2017 Status: F Source: CHURUBUSCO (ROUTINE) 4:[address] 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 It may contain incorrect words, spelling, and punctuation that were not noted in review of the chart prior to signing ED Disposition - Plan for ED Patient: Chief Complaint: Back Referrals: Yonny Cueto III, MD [Primary Care Provider] - What to do if you have Problems For any increased pain, shortness of breath, bleeding, nausea or vomiting, chest pain, or any unexpected problems, contact your Primary Care Provider. Call [facility] ([phone]) or report to the closest Emergency Room. Call 911 if necessary. 04/17/17713 <Electronically signed by Shelley Boss DO> Date Shelley Boss DO Cosigner Signature (If Indicated): Date CC: Yonny Cueto III, MD DISCHARGE INSTRUCTION Observed: 04/17/2017 Status: F Source: DANTE 3:[address] [facility] REPOSITORY [facility] Medical Records Department [address] [place] [address] Discharge Instruction 04/17/17 0306 MR#: [id number] Acct: [id number] Name: ANTONY MUJICA Rep #: [id number] : 1955 61 From: Shelley Boss DO PCP: Yonny Cueto III, MD Status: PRE ER ED Disposition - Plan for ED Patient: Disposition: Home or Assisted Living Chief Complaint: Back Instructions: ED Sciatica Referrals: Yonny Cueto III, MD [Primary Care Provider] - What to do if you have Problems For any increased pain, shortness of breath, bleeding, nausea or vomiting, chest pain, or any unexpected problems, contact your Primary Care Provider. Call [facility] ([phone]) or report to the closest Emergency Room. Call 911 if necessary. 04/17/17 0306 <Electronically signed by Shelley Boss DO> Date Shelley Boss DO Cosigner Signature (If Indicated): Date CC: Yonny Cueto III, MD ALLERGIES ALLERGIES DATE TYPE / CODE NAME / CODE REACTION SEVERITY SOURCE 02/03/2018 Drug No Known Unknown [facility] Allergy/4160 Allergies/F00 Hospital 54368(SNOMED 7562252(RXNOR Repository CT) M) 11/09/2006 DRUG/3249510 PSEUDOEPHEDRI [facility] 03(SNOMED [facility] CT) N Repository ENCOUNTERS ENCOUNTERS ADMIT/DISCHARGE ACCOUNT ADMITTING ENCOUNTER LOCATION SOURCE NUMBER CLASS 03/28/2018 [id number] [facility] ing:LAB.FUTUR Repository E 03/28/2018 [id number] [facility] ing:LAB Repository 03/23/2018 [id number] [facility] ing:PT Repository 02/08/2018 [id number] [facility] ing:LAB Repository 02/07/2018/02/09/20 [id number] Ambulatory [address] Repository 02/07/2018 [id number] Ambulatory [facility] Hospital ing:LAB Repository 02/07/2018 [id number] Ambulatory [facility] Hospital ing:LAB Repository 02/03/2018/02/04/20 [id number] Ambulatory BMSBuilding:B [place] [address] [place].[facility] Repository 01/13/2018 [id number] Ambulatory [facility] Hospital ing:MRI Repository 12/24/2017/12/28/19 [id number] Ambulatory [address] Repository 12/01/2017 [id number] [facility] Repository 11/22/2017 [id number] Ambulatory [facility] Hospital ing:LAB Repository 08/17/2017 [id number] Ambulatory [facility] Hospital ing:LAB Repository 07/22/2017/07/24/19 [id number] Ambulatory [address] Repository 07/20/2017/07/21/19 [id number] Ambulatory [address] Hospital ing:PT Repository 06/18/2017/06/19/19 [id number] Ambulatory BMSBuilding:B [place] [address] [place] Repository 06/15/2017 [id number] Ambulatory BMSBuilding:B [place] Repository 05/17/2017 [id number] Ambulatory [facility] Hospital ing:LAB Repository 05/07/2017/06/16/19 [id number] Ambulatory [address] Repository 05/06/2017 [id number] Ambulatory [facility] Hospital ing:MRI Repository 04/17/2017/04/17/19 [id number] Emergency [address] Hospital ing:ED Repository PAYERS PAYERS ENCOUNTER GUARANTOR PAYER SUBSCRIBER SOURCE 03/28/2018 ANTONY W Primary Insurance:[facility] CORRY Howell [id number] [facility] PFLUGHDOB: [facility] [id number] General Hospital [address]Aio: Number: Repository [id number] (HP) Date:2671-77-44SV [facility] [address], [place] [address]RR: CHECK WEBSITE 03/28/2018 Secondary ANTONY W [place] Insurance:MEDICARE PFLUGHDOB: Community PART A [facility] [id number] Hospital Number: Repository [id number] Date:2018-03-28 03/28/2018 Tertiary NOT GIVENUNK [place] Insurance:SELF PAY [facility] Number: Effective Repository Date:2018-03-28 03/28/2018 ANTONY W Primary Insurance:[facility] CORRY J [place] [id number] [facility] PFLUGHDOB: [facility] [id number] General Hospital [address]Lgv: Number: Repository [id number] (HP) Date:3511-96-60ZU [facility] [address], [place] [address]QO: CHECK WEBSITE 03/28/2018 Secondary ANTONY W [place] Insurance:MEDICARE PFLUGHDOB: Community PART A [facility] [id number] Hospital Number: Repository [id number] Date:2018-03-17 03/28/2018 Tertiary NOT GIVENUNK [place] Insurance:SELF PAY [facility] Number: Effective Repository Date:2018-03-17 03/23/2018 ANTONY W Primary Insurance:[facility] CORRY J [place] [id number] [facility] PFLUGHDOB: [facility] [id number] General Hospital [address]Bsp: Number: Repository [id number] (HP) Date:1625-51-08KY [facility] [address], [place] [address]GL: CHECK WEBSITE 03/23/2018 Secondary ANTONY W [place] Insurance:MEDICARE PFLUGHDOB: Community PART A [facility] [id number] Hospital Number: Repository [id number] Date:2013-09-05 03/23/2018 Tertiary NOT GIVENUNK [place] Insurance:SELF PAY [facility] Number: Effective Repository Date:2018-02-17 02/08/2018 ANTONY W Primary Insurance:[facility] CORRY Nuñez [place] [id number] [facility] PFLUGHDOB: [facility] [id number] General Hospital [address]Hvv: Number: Repository [id number] (HP) Date:4577-56-02OP [address] [address]OEKUFKXES, [place] [address]IQ: CHECK WEBSITE 02/08/2018 Secondary ANTONY W [place] Insurance:MEDICARE PFLUGHDOB: Community PART A [facility] [id number] Hospital Number: Repository [id number] Date:2018-02-08 02/08/2018 Tertiary NOT GIVENUNK [place] Insurance:SELF PAY [facility] Number: Effective Repository Date:2018-02-08 02/07/2018 ANTONY W Primary Insurance:[facility] CORRY Nuñez [place] [id number] [facility] PFLUGHDOB: [facility] [id number] General Hospital [address]Zyh: Number: Repository [id number] (HP) Date:3471-12-06CP [address] [address]PTUEDIPAQ, [place] [address]IA: CHECK WEBSITE 02/07/2018 Secondary ANTONY W [place] Insurance:MEDICARE PFLUGHDOB: Community PART A [facility] [id number] Hospital Number: Repository [id number] Date:2018-02-04 02/07/2018 Tertiary NOT GIVENUNK [place] Insurance:SELF PAY [facility] Number: Effective Repository Date:2018-02-04 02/07/2018 ANTONY W Primary Insurance:[facility] CORRY Nuñez [place] [id number] [facility] PFLUGHDOB: [facility] [id number] General Hospital [address]Yxr: Number: Repository [id number] (HP) Date:2095-58-05YB [address] [address]JYCQAVLRS, [place] [address]SZ: CHECK WEBSITE 02/07/2018 Secondary ANTONY W [place] Insurance:MEDICARE PFLUGHDOB: Community PART A [facility] [id number] Hospital Number: Repository [id number] Date:2018-01-19 02/07/2018 Tertiary NOT GIVENUNK [place] Insurance:SELF PAY [facility] Number: Effective Repository Date:2018-02-07 02/03/2018 ANTONY W Primary Insurance:[facility] CORRY Nuñez [place] [id number] [facility] PFLUGHDOB: [facility] [id number] General Hospital [address]Jst: Number: Repository [id number] (HP) Date:8081-08-83VY [address] [address]NRONGCL, [place] [address]HN: CHECK WEBSITE 02/03/2018 Secondary ANTONY W [place] Insurance:MEDICARE PFLUGHDOB: Community PART A [facility] [id number] Hospital Number: Repository [id number] Date:2017-06-18 02/03/2018 Tertiary NOT GIVENUNK [place] Insurance:SELF PAY [facility] Number: Effective Repository Date:2018-01-31 01/13/2018 ANTONY W Primary Insurance:[facility] CORRY Nuñez [place] [id number] [facility] PFLUGHDOB: [facility] [id number] General Hospital [address]Oub: Number: Repository [id number] (HP) Date:1873-57-22DK [address] [address]LDMALMUVP, [place] [address]OC: CHECK WEBSITE 01/13/2018 Secondary ANTONY W [place] Insurance:MEDICARE PFLUGHDOB: Community PART A [facility] [id number] Hospital Number: Repository [id number] Date:2018-01-07 01/13/2018 Tertiary NOT GIVENUNK [place] Insurance:SELF PAY [facility] Number: Effective Repository Date:2018-01-07 12/01/2017 ANTONY W Primary Insurance:[facility] CORRY Nñuez [place] [id number] [facility] PFLUGHDOB: [facility] [id number] General Hospital [address]Vzp: Number: Repository [id number] (HP) Date:0999-54-18OA [address] [address]XCBFNCABP, [place] [address]LQ: CHECK WEBSITE 12/01/2017 Secondary ANTONY W [place] Insurance:MEDICARE PFLUGHDOB: Community PART A [facility] [id number] Hospital Number: Repository [id number] Date:2017-11-29 12/01/2017 Tertiary NOT GIVENUNK [place] Insurance:SELF PAY [facility] Number: Effective Repository Date:2017-11-29 11/22/2017 ANTONY W Primary Insurance:[facility] CORRY Nuñez [place] [id number] [facility] PFLUGHDOB: [facility] [id number] General Hospital [address]Tez: Number: Repository [id number] (HP) Date:2066-41-15DO [address] [address]WJQENNBJG, [place] [address]HX: CHECK WEBSITE 11/22/2017 Secondary ANTONY W [place] Insurance:MEDICARE PFLUGHDOB: Community PART A [facility] [id number] Hospital Number: Repository [id number] Date:2017-11-19 11/22/2017 Tertiary NOT GIVENUNK [place] Insurance:SELF PAY [facility] Number: Effective Repository Date:2017-11-22 08/17/2017 ANTONY W Primary Insurance:[facility] CORRY Nuñez [place] [id number] [facility] PFLUGHDOB: [facility] [id number] General Hospital [address]Ntf: Number: Repository [phone] [id number] -3 (HP) Date:8154-32-08YA [address] [address]VUXFNMCEM, [place] [address]ZR: CHECK WEBSITE 08/17/2017 Secondary ANTONY W [place] Insurance:MEDICARE PFLUGHDOB: Community PART A [facility] [id number] Hospital Number: Repository [id number] Date:2017-08-16 08/17/2017 Tertiary NOT GIVENUNK [place] Insurance:SELF PAY [facility] Number: Effective Repository Date:2017-08-16 07/20/2017 ANTONY W Primary Insurance:[facility] CORRY Rob[place]oster [id number] [facility] PFLUGHDOB: [facility] [id number] [place] [address]Tel: Number: Repository [phone] [id number] (HP) Date:6645-17-91SP [address] [address]WOUWSZPMU, [place] [address]NO: CHECK WEBSITE 07/20/2017 Secondary ANTONY W [place] Insurance:MEDICARE PFLUGHDOB: Community PART A [facility] [id number] Hospital Number: Repository [id number] Date:2013-09-05 07/20/2017 Tertiary NOT GIVENUNK [place] Insurance:SELF PAY [facility] Number: Effective Repository Date:2017-06-28 06/18/2017 ANTONY W Primary Insurance:[facility] CORRY J [place] [id number] [facility] PFLUGHDOB: [facility] [id number] Ville [id number]: Number: Repository [phone] [id number] [id number] (HP) Date:6339-00-34VM [facility] [address]AWAGBWKZG, [place] [address]LN: CHECK WEBSITE 06/18/2017 Secondary ANTONY W [place] Insurance:MEDICARE PFLUGHDOB: Community PART A [facility] [id number] Hospital Number: Repository [id number] Date:2017-02-11 06/18/2017 Tertiary NOT GIVENUNK [place] Insurance:SELF PAY [facility] Number: Effective Repository Date:2017-06-18 06/15/2017 Antony W Primary Insurance:[facility] CORRY [address] [id number] Count includes the [facility] PFLUGHDOB: [facility] [id number] [place] [id number]: Number: Repository [phone] [id number] (HP) Date:0635-77-67XY [address] [address]BIPUWZLRU, [place] [address]ZF: CHECK WEBSITE 06/15/2017 Secondary Antony W [place] Insurance:MEDICARE PflughDOB: Community PART A [facility] [id number] Hospital Number: Repository [id number] Date:2017-06-15 06/15/2017 Tertiary NOT GIVENUNK [place] Insurance:SELF PAY [facility] Number: Effective Repository Date:2017-06-15 05/17/2017 Antony W Primary Insurance:[facility] CORRY [place] [id number] Count includes the [facility] PFLUGHDOB: [facility] [id number] General Hospital [address]Dss: Number: Repository [phone] [id number] -3 (HP) Date:0401-22-90KX [facility] [address]HSHDOVQRS, [place] [address]SD: CHECK WEBSITE 05/17/2017 Secondary Antony W [place] Insurance:MEDICARE PflughDOB: Community PART A [facility] [id number] Hospital Number: Repository [id number] Date:2017-04-08 05/17/2017 Tertiary NOT GIVENUNK [place] Insurance:SELF PAY [facility] Number: Effective Repository Date:2017-04-08 05/06/2017 Antony W Primary Insurance:[facility] CORRY [place] [id number] Count includes the [facility] PFLUGHDOB: [facility] [id number] General Hospital [address]Brb: Number: Repository [phone] [id number] -3 (HP) Date:9918-95-96KH [facility] [address]RTBEHZILP, [place] [address]WG: CHECK WEBSITE 05/06/2017 Secondary Antony W [place] Insurance:MEDICARE PflughDOB: Community PART A [facility] [id number] Hospital Number: Repository [id number] Date:2017-05-04 05/06/2017 Tertiary NOT GIVENUNK [place] Insurance:SELF PAY [facility] Number: Effective Repository Date:2017-05-04 04/17/2017 Antony Malone Primary Insurance:[facility] CORRY Roblesoster [id number] Count includes the [facility] PFLUGHDOB: Community [place] CHIP Ju[facility]rezY[facility] Medical Centermichaelkareem [id number] General Hospital [address]Atr: Number: Repository [phone] [id number] (HP) Date:1220-09-32CL [address] [address]CCACDJBRX, [place] [address]VG: CHECK WEBSITE 04/17/2017 Secondary Antony How[place] Insurance:MEDICARE PflughDOB: [facility] PART A [facility] [id number] [facility] Number: Repository [id number] Date:2017-04-17 04/17/2017 Tertiary NOT GIVENUNK [place] Insurance:SELF PAY [facility] Number: Effective Repository Date:2017-04-17
== END ==
PROVIDERS: Family Provider Family Medicine; PCP Family Medicine; Referring Provider Internal Medicine Rheumatology; Visit Provider Internal Medicine Rheumatology
DX: M06.09 Rheumatoid arthritis without rheumatoid factor, multiple sites (principal); M17.0 Bilateral primary osteoarthritis of knee; Q66.7 Congenital pes cavus; M47.892 Other spondylosis, cervical region; M47.897 Other spondylosis, lumbosacral region; I70.90 Unspecified atherosclerosis; E78.5 Hyperlipidemia, unspecified; K21.0 Gastro-esophageal reflux disease with esophagitis; F32.89 Other specified depressive episodes; Z79.899 Other long term (current) drug therapy
CPT/HCPCS: 36415; 80053; 85025

== ENCOUNTER 2018-05-10 08:30 | Outpatient (RCR) | payer OTHER, MEDICARE, SELFPAY ==
[2018-02-03 09:21] VITALS: BMI 35.9
--- NOTE | 2018-02-28 08:36 | HP.PTEVAL_ITS ---
Patient's Visit Information JOSE MUJICA is a 62 year old M referred to Physical Therapy by CHARLEEN TAYLOR with a diagnosis of L reverse total shoulder. Date of Evaluation: 02/24/18 Physical Therapist: Rahat Goldsmith DPT - Visit Plan Frequency: 2x /Week Duration: 8 weeks Plan: Start with PROM, progress per protocol. Add in heat pre treatment to increase tolerance to stretching. - Subjective Findings: Pt. is here today for his initial evaluation with diagnosis of L reverse total shoulder. Pt. reports I am actually doing pretty well. Pt. reports being HEP compliant wtih wearing sling and pendulums. DOS: 02/17/18. Pt. reports seeing physician who was pleased with current status. Pt. denies N/T in either UE. Pt. reports minimal pain, except when he trys to sleep. Pt. has greatest pain with attempting to sleep. Pt. reports weaning him self off his medication. Pt. 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 - Pain L shoulder Pain Intensity (Out of 10): 1 Pain Intensity Range: 0, 4 - Objective POSTURE: Pt. has normal shoulder height. Pt. has L UE is guarded posture without sling. Pt. has slight forward shoulder. PALPATION: Pt. has normal sensation to light and sharp touch. Pt. has normal well healing incision. No signs of infection. No N/T in either UEs. NEURO: ALl normal, no issues. ROM: R shoulder- AROM full wihtout issues. L shoulder- PROM- flexion 110deg, abd 98deg, ER 10deg. Normal elbow flexion and extension. MMT: RUE- 5/5 throughout; LUE- wrist 5/5 throughout; elbow- 5/5 throughout; shoulder- not testing due to surgery. - Goals Goal 1:: Pt. to be I with HEP. Goal Time Frame: 4-6 Weeks Goal 2:: Pt. to have increased PROM of L shoulder to full without increase in symptoms. Goal Time Frame: 4-6 Weeks Goal 3:: Pt. to have no pain at rest and sleep throughout the night without increase in symptoms. Goal Time Frame: 4-6 Weeks Goal 4:: Pt. to have increased AAROM of L shoulder to 75% of full motion. Goal Time Frame: 6-8 Weeks Goal 5:: Pt. to have increased strength of L shoulder to 4/5 throughout. Goal Time Frame: 8-12 Weeks - Rehabilitation Potential Physical Therapy Diagnosis: Pt. 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 Pt. has subsequent hypomobility and weakness. Pt. would benefit from PT to increase ROM, decrease pain progressing to strengthening in order to get back all recreational activities without limitations. Rehabilitation Potential: Excellent - Anticipated Interventions Patient/Client Instruction: Educate patient on: Condition, Plan of Care, Risk Factors, Benefits of Fitness Program For the Purpose of:: To improve decision making, To facilitate caregiver knowledge, To improve self management, To prevent re-injury, To improve ability to perform tasks related to life management, To improve tolerance to ADL's Therapeutic Exercise to Include: Strength training, Postural training, Flexibilty training, Passive ROM, Active ROM, Scapular Strength/Stabilization For the Purpose of:: To decrease pain, To decrease swelling/inflammation, To increase ROM, To improve nutrient delivery to tissue, To increase oxygenation perfusion, To improve health of tissue, To decrease soft tissue restriction, To increase flexibility/ROM Manual Therapy Techniques to Include: Mobilization, Passive ROM, Soft tissue mobilization For the Purpose of:: To decrease pain, To increase ROM, To improve nutrient delivery to tissue, To increase oxygenation perfusion, To improve health of tissue, To decrease soft tissue restriction Thank you for the opportunity to evaluate your patient. For Medicare and Medicare HMO plans, please review the plan of care and approve it. It will need to be FAXED BACK to us at [phone] for Medicare purposes. For Medicare only, by signing this I certify the plan of care. Please let me know if there are questions or concerns regarding this plan of care. Physician Signatu re: Date:
--- NOTE | 2018-04-06 12:27 | HP.PTREVAL_ITS ---
CHARLEEN TAYLOR, It has been my pleasure to treat JOSE MUJICA over the last 9 visits for L reverse total shoulder. Please see the progress note below for an update on the physical therapy plan of care! Subjective: Pt. reports I am doing pretty well. He saw physician who was pleased with progress. Pt. did receive another script to continue PT with focus on strength and end range of motion. pt. reports no pain pre treatment this date. Objective/Function: Pt. tolerated all PT without adverse reaction. Pt. has close to full PROM, limited by ~20 deg of forward flexion and abduction. Pt. is lacking ~20deg of ER and IR. Pt. reports overall no pain currently. MMT: L shoulder- flexion 4/5, abd 4/5, ext 5/5, ER 4/5, IR 4+/5. Pt. would benefit from continued PT to work on end range of motion actively and progress strengthening to increase stability and improve functional use of his L shoulder. Plan Plan: Requesting increased visits to further strengthening and ROM. Goals Goal 1:: Pt. to be I with HEP. Goal Time Frame: 4-6 Weeks Goal Progress: Goal Met Goal 2:: Pt. to have increased PROM of L shoulder to full without increase in symptoms. Goal Time Frame: 4-6 Weeks Goal 3:: Pt. to have no pain at rest and sleep throughout the night without increase in symptoms. Goal Time Frame: 4-6 Weeks Goal Progress: Goal Met Goal 4:: Pt. to have increased AAROM of L shoulder to 75% of full motion. Goal Time Frame: 6-8 Weeks Goal Progress: Goal Met Goal 5:: Pt. to have increased strength of L shoulder to 4/5 throughout. Goal Time Frame: 8-12 Weeks Goal Progress: Progressing Anticipated Interventions Patient/Client Instruction: Educate patient on: Condition, Plan of Care, Risk Factors, Benefits of Fitness Program For the Purpose of:: To improve decision making, To facilitate caregiver knowledge, To improve self management, To prevent re-injury, To improve ability to perform tasks related to life management, To improve tolerance to ADL's Therapeutic Exercise to Include: Strength training, Postural training, Fle xibilty training, Passive ROM, Active ROM, Scapular Strength/Stabilization For the Purpose of:: To decrease pain, To decrease swelling/inflammation, To increase ROM, To improve nutrient delivery to tissue, To increase oxygenation perfusion, To improve health of tissue, To decrease soft tissue restriction, To increase flexibility/ROM Manual Therapy Techniques to Include: Mobilization, Passive ROM, Soft tissue mobilization For the Purpose of:: To decrease pain, To increase ROM, To improve nutrient delivery to tissue, To increase oxygenation perfusion, To improve health of tissue, To decrease soft tissue restriction Please do not hesitate to contact me at [phone] by phone or if you have questions or concerns regarding this new plan of care! Sincerely, KATRINA UrbinaT
== END 2018-05-10 09:00 | disposition home or self-care (01) ==
LOC: PT 08:30
PROVIDERS: Family Provider Family Medicine; PCP Family Medicine
DX: M75.122 Complete rotator cuff tear or rupture of left shoulder, not specified as traumatic (principal)
CPT/HCPCS: 97110; 97140; 97161; 97530

== ENCOUNTER → 2018-06-14 16:35 | Outpatient (CLI) | payer OTHER, MEDICARE, SELFPAY ==
[2018-02-03 09:21] VITALS: BMI 35.9
[2018-06-14 17:25] LABS: Absolute Lymphocyte Count 4.08 X10^3/ul (0.83-4.51); Absolute Neutrophil Count 4.4 X10^3/uL (2.0-7.7); Basophil# 0.03 X10^3/uL; Basophil% 0.3 % (0-1); Eosinophil# 0.13 X10^3/uL; Eosinophils% 1.4 % (0-5); Hematocrit 39.9 % (40-54); Hemoglobin 13.5 g/dl (13.0-16.5); Lymphocyte # 4.08 X10^3/ul (4.0); Lymphocyte % 42.6 % (19-41); Mean Corp Hgb Conc 33.8 g/gl (32-36); Mean Corpuscular Hgb 32.5 pg (27.0-32.0); Mean Corpuscular Volume 96.1 fL (80-94); Mean Platelet Vol. 8.4 fl (6.2-12.0); Monocyte# 0.89 X10^3/uL; Monocyte% 9.3 % (0-10); Neutrophil # 4.42 X10^3/uL (2.7-7.7); Neutrophil % 46.2 % (47-70); Platelet Count 200 K/mm3 (150-450); RBC Distribution Width CV 14.9 % (11.6-14.6); RBC Distribution Width SD 52.6 fl (35.1-43.9); Red Blood Count 4.15 M/mm3 (4.6-6.2); White Blood Count 9.6 K/mm3 (4.4-11.0)
[2018-06-14 17:31] LABS: POSITIVE COUNT NO; POSITIVE DIFFERENTIAL NO; POSITIVE MORPHOLOGY NO
[2018-06-14 18:18] LABS: Albumin, Serum 3.8 g/dL (3.2-5.0); BUN 15 mg/dL (7-18); BUN/Creat Ratio 16.8 RATIO (10-20); Creatinine, Serum 0.89 mg/dL (0.70-1.30); EST Glomerular Filtration Rate 92 mL/min (>60); Est Glom Filt Rate - Afr Amer 112 mL/min (>60); Glucose 123 mg/dL (74-106); Protein, Total 7.1 g/dL (6.4-8.2)
[2018-06-14 18:19] LABS: ALB/GLOB Ratio 1.2 RATIO (0.9-2.4); AST(SGOT) 25 U/L (15-37); Alanine Aminotransfer ALT/SGPT 34 U/L (16-61); Alkaline Phosphatase 127 U/L (45-117); Anion Gap 8 (5-15); Chloride 105 mmol/L (98-107); Globulin 3.3 g/dL (2.2-4.2); Potassium 3.5 mmol/L (3.5-5.1); Sodium Level 140 mmol/L (136-145)
== END ==
PROVIDERS: Family Provider Family Medicine; PCP Family Medicine; Referring Provider Internal Medicine Rheumatology; Visit Provider Internal Medicine Rheumatology
DX: M06.09 Rheumatoid arthritis without rheumatoid factor, multiple sites (principal); M17.0 Bilateral primary osteoarthritis of knee; Q66.7 Congenital pes cavus; K21.0 Gastro-esophageal reflux disease with esophagitis; F32.89 Other specified depressive episodes; M47.892 Other spondylosis, cervical region; M47.897 Other spondylosis, lumbosacral region; I70.90 Unspecified atherosclerosis; E78.5 Hyperlipidemia, unspecified; Z79.899 Other long term (current) drug therapy
CPT/HCPCS: 36415; 80053; 85025

== ENCOUNTER → 2018-07-29 11:44 | Outpatient (CLI) | payer OTHER, MEDICARE, SELFPAY ==
[2018-07-29 11:14] VITALS: BMI 35.9
[2018-07-29 11:53] LABS: Lyme Ab Screen Interpretation REF LAB
[2018-07-29 14:02] LABS: Erythrocyte Sedimentation Rate 41 mm/hr (0-20)
[2018-07-29 14:02] LABS: Pathologist Comment May follow
[2018-07-29 14:10] LABS: Absolute Lymphocyte Count 2.84 X10^3/ul (0.83-4.51); Absolute Neutrophil Count 5.8 X10^3/uL (2.0-7.7); Basophil# 0.01 X10^3/uL; Basophil% 0.1 % (0-1); Eosinophil# 0.05 X10^3/uL; Eosinophils% 0.5 % (0-5); Hematocrit 42.2 % (40-54); Hemoglobin 14.2 g/dl (13.0-16.5); Lymphocyte # 2.84 X10^3/ul (4.0); Lymphocyte % 27.4 % (19-41); Mean Corp Hgb Conc 33.6 g/gl (32-36); Mean Corpuscular Hgb 32.8 pg (27.0-32.0); Mean Corpuscular Volume 97.5 fL (80-94); Mean Platelet Vol. 8.8 fl (6.2-12.0); Monocyte# 1.58 X10^3/uL; Monocyte% 15.2 % (0-10); Neutrophil # 5.84 X10^3/uL (2.7-7.7); Neutrophil % 56.3 % (47-70); Platelet Count 227 K/mm3 (150-450); RBC Distribution Width CV 14.5 % (11.6-14.6); RBC Distribution Width SD 50.4 fl (35.1-43.9); Red Blood Count 4.33 M/mm3 (4.6-6.2); White Blood Count 10.4 K/mm3 (4.4-11.0)
[2018-07-29 14:11] LABS: Differential Indicated SCAN CRITERIA MET; POSITIVE COUNT NO; POSITIVE DIFFERENTIAL YES; POSITIVE MORPHOLOGY NO
[2018-07-29 14:12] LABS: Rheumatoid Factor < 10.0 IU/mL (<15)
[2018-07-29 14:43] LABS: Platelet Estimate ADEQUATE (ADEQ); Red Cell Morphology NORM C+C NORMAL (NORM C&C)
[2018-07-29 14:55] LABS: RBC /Synovial Fluid 0.012 10^6/uL (0); Synovial Fld Mononuclear WBC % 7.2 %; Synovial Fld Polynuclear WBC % 92.8 %
[2018-07-29 15:02] LABS: AUTO B FLUID DILUENT BKGD CT WBC <0.1 RBC <0.01 (W<.1,R<.01); Source- Body Fluid SYNOVIAL
[2018-07-29 15:03] LABS: Appearance /Synovial Fluid Cloudy (CLEAR); Color / Synovial Fluid Yellow (Pale Yellow); Source / Synovial Fluid RIGHT KNEE
[2018-07-29 15:11] LABS: Monocyte /Synovial Fluid 6 %; Neutrophil 94 % (0-25)
[2018-07-30 12:32] LABS: GLUCOSE, SYNOVIAL FLUID 27 mg/dL (.); PROTEIN, SYNOVIAL FLUID 4.3 g/dL (.)
[2018-08-02 14:33] LABS: Pathologist Review Reviewed
[2018-08-03 16:28] LABS: ANTINUCLEAR ANTIBODIES DIRECT Negative (Negative)
[2018-08-05 16:09] LABS: CCP IgG Antibodies 31 units (0-19); HLA B27 Negative (.); Lyme Scn Total Ab w/Rflx <0.91 ISR (0.00-0.90)
== END ==
PROVIDERS: Family Provider Family Medicine; PCP Family Medicine; Referring Provider Orthopaedic Surgery; Visit Provider Orthopaedic Surgery
DX: M25.462 Effusion, left knee (principal)
CPT/HCPCS: 81374; 82945; 84157; 85025; 85652; 86038; 86140; 86200; 86431; 86618; 87070; 87075; 87077; 87186; 87205; 89050; 89051; 89060

== ENCOUNTER 2018-07-29 17:29 | Inpatient (IN) | payer OTHER, MEDICARE, SELFPAY ==
[2018-07-29 11:14] VITALS: BMI 35.9
[2018-07-29 17:30] VITALS: BP 141/85; PULSE 85; RESP 16; TEMP 36.6; O2SAT 94; BMI 33.5
[2018-07-29 17:44] VITALS: PULSE 85; RESP 16; TEMP 36.6; O2SAT 98
--- NOTE | 2018-07-29 18:06 | EKG12_ITS ---
Test Reason : PRE OP Blood Pressure : / mmHG Vent. Rate : 068 BPM Atrial Rate : 068 BPM P-R Int : 180 ms QRS Dur : 104 ms QT Int : 438 ms P-R-T Axes : 058 -36 118 degrees QTc Int : 465 ms Normal sinus rhythm Left axis deviation Lateral infarct , age undetrmined Inferior-posterior infarct , age undetermined Abnormal ECG Confirmed by JÚNIOR BOOKER ([id number]), editor map MORENO SAUCEDA ([id number]) on 08/03/2018 11:34:08 AM Referred By: Pattie Rodriguez Confirmed By:SUSAN BOOKER
--- NOTE | 2018-07-29 18:10 | ED.DCSUM_ITS ---
- ER Visit Summary Date of Service: 07/29/18 Chief Complaint: [Left knee pain] History of Present Illness: The patient is a 63 M [presents to the emergency room with left knee pain that started 4 days ago. Patient states that he had an injection of cortisone in the left knee by pain management 8 days ago. Patient's had increased swelling x4 days and increased pain with walking. Patient was seen by Dr. Rodriguez in the office today and had the joint aspirated. It was thought patient had a septic joint. Patient was sent to the ER to be admitted and started on antibiotics. Patient denies any fevers at home. He denies any chills or sweats. He denies any trauma to the knee.] Physical Examination: [HEENT-PERRLA, EOMI. Cranial nerves II through XII grossly intact. TMs clear. Mucous membranes moist. No adenopathy. Cardiovascular-regular rate and rhythm without murmur or ectopy Lungs-clear to auscultation, chest wall stable without crepitus or subcu emphysema Abdomen-normoactive bowel sounds, soft, nontender, no rebound or rigidity, no peritoneal signs. Extremities-intact ?4, normal range of motion, normal pulses, atraumatic. Left knee-patient has a small effusion noted. Patient has pain with range of motion. There is no erythema or significant warmth noted. He is neurovascular intact distally. No evidence for cellulitis or lymphangitis.] Test Results: [CBC ordered today showed a normal white count of 10.4, hemoglobin 14, hematocrit 42, placed 227. Patient's sed rate was elevated at 41. Patient had 50,000 WBCs in the fluid that was aspirated earlier in the day. I also ordered basic metabolic profile as well as an EKG and blood cultures which will be pending.] Emergency Department Course and Treatment: [Patient will be admitted to hospital and started empirically on Zosyn and vancomycin in the emergency department.] Treatment Plan: [Admit for IV antibiotics and surgical intervention tomorrow] Disposition: [Admit] Impression: [Septic joint left knee] This note was generated with [employer] dictation software. It may contain incorrect words, spelling, and punctuation that were not noted in review of the chart prior to signing ED Disposition - Plan for ED Patient: Referrals: Dominick Cueto III, MD [Primary Care Provider] -
--- NOTE | 2018-07-29 18:22 | ED.RN ---
Addendum entered by Blanka Villalpando 07/29/18 18:50: Clarified with ER that this note does not pertain to this patient- written in wrong chart. Crisis was never called for this pt. Original Note: PER BRITTANIE WITH CRISIS, SHE HAS CALLED 9-10 HOSPITALS WHICH ALL OF THEM HAVE DECLINED THE PT. [facility] AND IS WAITING TO HERE; IF SHE IS DECLINED THERE SHE DONT KNOW WHAT WE WILL DO
[2018-07-29 18:29] VITALS: BMI 33.6
[2018-07-29 18:29] LABS: Anion Gap 7 (5-15); BUN 15 mg/dL (7-18); BUN/Creat Ratio 21.7 RATIO (10-20); Calcium,Total 8.7 mg/dL (8.5-10.1); Chloride 103 mmol/L (98-107); Creatinine, Serum 0.69 mg/dL (0.70-1.30); EST Glomerular Filtration Rate 124 mL/min (>60); Est Glom Filt Rate - Afr Amer 150 mL/min (>60); Estimated Creatinine Clearance 112.43 ml/min; Glucose 96 mg/dL (74-106); Potassium 3.7 mmol/L (3.5-5.1); Sodium Level 135 mmol/L (136-145)
--- NOTE | 2018-07-29 18:41 | PCM.CONS.GEN ---
Problem List (1) Bilateral carotid artery stenosis Status: Chronic (2) Atherosclerotic heart disease of [place] coronary artery without angina pectoris Status: Chronic Qualifiers: Comment: CABG X 5 on 05/09, Lt IT to LAD, SVG to RI, 1st Diag. of LAD, SVG to CFX, RCA; drug-eluting stent to RCA, mid RCA, and distal RCA in April 2016; (3) Old myocardial infarction Status: Chronic (4) Ischemic cardiomyopathy Status: Chronic (5) Aortocoronary bypass status Status: Chronic Comment: CABG X 5v on 05/09, Lt IT to LAD, SVG to RI, 1st Diag. of LAD, SVG to CFX, RCA (6) [facility] use of drug Status: Chronic (7) Rheumatoid arthritis Status: Chronic (8) Coronary artery disease Status: Chronic (9) Carotid stenosis, right Status: Chronic (10) CVA (cerebral vascular accident) Status: Chronic (11) Hyperlipidemia Status: Chronic Qualifiers: (12) HTN (hypertension) Status: Chronic Qualifiers: (13) Status post angioplasty with stent Status: Chronic Comment: PTCA of RCA, with placement of intracoronary stent X2; 01/15/08 PTCA/stent (EMILIA) X4 to RCA proximal, mid & distal portions; PTCA & stent to TAXUS EMILIA to RCA; 06/10/09 PTCA/stent of pre-existing stent in proximal to mid RCA; LHC, FFR & EMILIA to proximal RCA, as well as angioplasty to mid & distal RCA 04/28/[address] Huerta Reason for Consult Date of Consultation: 07/29/18 Reason for Consultation: Medical management, significant cardiac history. History of Present Illness: The patient is a 63 year old M who presents to the emergency room due to left knee pain. He reports 07/21/2018 he had a cortisone injection in the left knee due to ongoing pain. He reports a history of bilateral knee scopes, no knee replacements in the past. He reports over the past 3 to 4 days he has developed increased pain which is worse with ambulating. He denies fever, chills. Reports associated left knee swelling. His left knee was aspirated by Dr. Rodriguez earlier today and he was states this provided some immediate relief. He was thought to have a septic joint and referred to the emergency room. His past medical history includes CAD status post CABG x5, hypertension, hyperlipidemia, bilateral carotid artery disease, rheumatoid arthritis, history of CVA, depression, obesity. Past Medical History Past Medical History (Chronic Problems): Chronic Problems (Last Reviewed 02/03/18 @ 09:44 by Charlie Johnson MD) Bilateral carotid artery stenosis (Chronic) Atherosclerotic heart disease of [place] coronary artery without angina pectoris (Chronic) CABG X 5 on 05/09, Lt IT to LAD, SVG to RI, 1st Diag. of LAD, SVG to CFX, RCA; drug-eluting stent to RCA, mid RCA, and distal RCA in April 2016; Old myocardial infarction (Chronic) Ischemic cardiomyopathy (Chronic) Aortocoronary bypass status (Chronic) CABG X 5v on 05/09, Lt IT to LAD, SVG to RI, 1st Diag. 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 Huerta Medical History: Medical History (Last Reviewed 02/03/18 @ 09:44 by Charlie Johnson MD) Bilateral carotid artery stenosis (Chronic) I65.23 Atherosclerotic heart disease of [place] coronary artery without angina pectoris (Chronic) I25.10 CABG X 5 on 05/09, Lt IT to LAD, SVG to RI, 1st Diag. 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) Z79.899 Rheumatoid arthritis (Chronic) M06.9 Coronary artery disease (Chronic) I25.10 Carotid stenosis, right (Chronic) I65.21 CVA (cerebral vascular accident) (Acute) I63.9 Hyperlipidemia (Chronic) E78.5 HTN (hypertension) (Chronic) I10 Allergies No Known Allergies Allergy (Verified 07/29/18 17:30) Home Medications: Ambulatory Orders Medication Instructions Recorded Carvedilol [Coreg (Beta Marlene)] 6.25 mg PO BID 07/03/14 Leflunomide [Arava] 20 mg PO QHS 07/03/14 Lisinopril [Zestril] 5 mg PO QHS 07/03/14 Meloxicam [Mobic] 15 mg PO QHS 07/03/14 Omeprazole [Prilosec] 40 mg PO QHS 07/03/14 Adalimumab [Humira] 40 mg SQ Q14D 04/14/16 nitroglycerin 0.4 mg sublingual 0.4 mg SUBLINGUAL Q5M PRN 05/12/17 tablet oxycodone-acetaminophen 7.5 mg-325 1 tab PO Q8H PRN 02/03/18 mg tablet ranolazine ER 1,000 mg 1,000 mg PO BID #180 tab 07/05/18 tablet,extended release,12 hr Clopidogrel Bisulfate [Plavix] 75 mg PO QHS 07/29/18 Fluoxetine HCl 40 mg PO QHS 07/29/18 Rosuvastatin Calcium [Crestor] 10 mg PO QHS 07/29/18 Surgical History: Surgical History (Last Reviewed 07/29/18 @ 18:48 by Lis Cabezas NP-[facility]) Aortocoronary bypass status (Chronic) Z95.1 CABG X 5v on 05/09, Lt IT to LAD, SVG to RI, 1st Diag. of LAD, SVG to CFX, RCA Status post angioplasty with stent (Chronic) Z95.9 PTCA of RCA, with placement of intracoronary stent X2; 01/15/08 PTCA/stent (EMILIA) X4 to RCA proximal, mid & distal portions; PTCA & stent to TAXUS EMILIA to RCA; 06/10/09 PTCA/stent of pre-existing stent in proximal to mid RCA; LHC, FFR & EMILIA to proximal RCA, as well as angioplasty to mid & distal RCA 04/28/[address] Huerta Surgical History: - - CABG x5, bilateral knee scope, left shoulder surgery, cataracts. Psychiatric History: Depression Lives: Spouse/ Significant Other Smoking Status: Former smoker Alcohol: Rare Drugs: None - *Family History Maternal Family History: Family History (Last Reviewed 07/29/18 @ 18:48 by MAGED Valladares) Father CAD (coronary artery disease) Diabetes History Items: - - Rheumatoid arthritis. Paternal Family History: Family History (Last Reviewed 07/29/18 @ 18:48 by MAGED Valladares) Father CAD (coronary artery disease) Diabetes History Items: Diabetes, Heart Disease Review of Systems Constitutional: Denies: Chills, Fever, Weight Change HEENT: Denies: Head Aches, Sinus Congestion, Sinus Drainage Cardiovascular: Denies: Chest Pain, Palpitations Respiratory: Denies: Cough, Shortness of breath at rest, Sputum production Gastrointestinal: Denies: Abdominal Pain, Nausea, Vomiting Genitourinary: Denies: Dysuria Musculoskeletal: Reports: - - Left knee pain, joint swelling. Skin: Denies: Rash, Wounds Neurological: Denies: Numbness, Tingling, Focal weakness Psychiatric: Reports: Depression. Denies: Anxiety, Homicidal Ideations, Suicidal Ideations Hematologic/ Lymphatic: Denies: Easy Bruising, Easy Bleeding - Physical Exam General: Alert, Oriented x3, Cooperative HEENT: Atraumatic, PERRLA, EOMI, Normocephalic Neck: Supple, No JVD, Negative Carotid Bruits Lungs: Clear to auscultation, Normal air movement Cardiovascular: Regular rate, Regular Rhythm, Normal S1, Normal S2, No murmurs Abdomen: Bowel Sounds Present, Soft, Non Tender, Non-Distended, Obese Extremities: No clubbing, No cyanosis, Capillary Refill Less than 3 Seconds, Edema - Left knee Skin: No rashes, No breakdown, - - Left knee with edema, no significant erythema. Musculoskeletal: No Tenderness to Palpation of Joints or Extremities Neurological: Cranial nerves II-XII grossly intact, Neuro grossly intact Psych/Mental Status: Normal Affect, Appropriate Vital Signs Temp Pulse Resp BP Pulse Ox 97.8 F 85 16 141/85 H 98 07/29/18 17:44 07/29/18 17:44 07/29/18 17:44 07/29/18 17:30 07/29/18 17:44 Oxygen Delivery Method Room Air Weight: 227 lb 4.745 oz Body Mass Index (BMI) 33.5 Laboratory Tests Past 24 Hrs 07/29/18 18:10 Sodium 135 L Potassium 3.7 Chloride 103 Carbon Dioxide 25.0 Anion Gap 7 BUN 15 Creatinine 0.69 L Estim Creat Clear Calc 112.43 Est GFR (MDRD) Af Amer 150 Est GFR (MDRD) Non-Af 124 BUN/Creatinine Ratio 21.7 H Glucose 96 Calcium 8.7 Assessment/Plan 1. Left knee septic joint- Recent cortisone injection 07/21/[address] Rodriges. Aspirated 07/29/18. Plan for surgical intervention tomorrow with Dr. Rodriguez. Cultures pending. Continue IV vanc and IV zosyn pending cultures. 2. CAD status post CABG x5 2017-denies chest pain. Follows with Dr. Johnson. Continue carvedilol, lisinopril, Ranexa, statin, plavix. 3. Hypertension-stable, continue home carvedilol, lisinopril regimen. 4. Hyperlipidemia-continue statin. 5. Bilateral carotid artery disease- carotid US 04/29/16 with less than 50% stenosis bilaterally. 6. Rheumatoid arthritis-on Humira, Arava. Hold Humira prior to surgery. 7. History of CVA-continue statin. Hold plavix given plan for surgery. 8. Depression-continue home fluoxetine regimen. 9. Obesity- encouraged diet and lifestyle modifications. 10. GERD-continue omeprazole regimen. DVT prophylaxis- Lovenox sc, hold prior to surgery This patient was seen by MAGED Valladares under the supervision of Dr. Soria.
--- NOTE | 2018-07-29 18:47 | CON.PCM_ITS ---
Problem List (1) Bilateral carotid artery stenosis Status: Chronic (2) Atherosclerotic heart disease of [place] coronary artery without angina pectoris Status: Chronic Qualifiers: Comment: CABG X 5 on 05/09, Lt IT to LAD, SVG to RI, 1st Diag. of LAD, SVG to CFX, RCA; drug-eluting stent to RCA, mid RCA, and distal RCA in April 2016; (3) Old myocardial infarction Status: Chronic (4) Ischemic cardiomyopathy Status: Chronic (5) Aortocoronary bypass status Status: Chronic Comment: CABG X 5v on 05/09, Lt IT to LAD, SVG to RI, 1st Diag. of LAD, SVG to CFX, RCA (6) [facility] use of drug Status: Chronic (7) Rheumatoid arthritis Status: Chronic (8) Coronary artery disease Status: Chronic (9) Carotid stenosis, right Status: Chronic (10) CVA (cerebral vascular accident) Status: Chronic (11) Hyperlipidemia Status: Chronic Qualifiers: (12) HTN (hypertension) Status: Chronic Qualifiers: (13) Status post angioplasty with stent Status: Chronic Comment: PTCA of RCA, with placement of intracoronary stent X2; 01/15/08 PTCA/stent (EMILIA) X4 to RCA proximal, mid & distal portions; PTCA & stent to TAXUS EMILIA to RCA; 06/10/09 PTCA/stent of pre-existing stent in proximal to mid RCA; LHC, FFR & EMILIA to proximal RCA, as well as angioplasty to mid & distal RCA 04/28/[address] Huerta Reason for Consult Date of Consultation: 07/29/18 Reason for Consultation: Medical management, significant cardiac history. History of Present Illness: The patient is a 63 year old M who presents to the emergency room due to left knee pain. He reports 07/21/2018 he had a cortisone injection in the left knee due to ongoing pain. He reports a history of bilateral knee scopes, no knee replacements in the past. He reports over the past 3 to 4 days he has developed increased pain which is worse with ambulating. He denies fever, chills. Reports associated left knee swelling. His left knee was aspirated by Dr. Rodriguez earlier today and he was states this provided some immediate relief. He was thought to have a septic joint and referred to the emergency room. His past medical history includes CAD status post CABG x5, hypertension, hyperlipidemia, bilateral carotid artery disease, rheumatoid arthritis, history of CVA, depression, obesity. Past Medical History Past Medical History (Chronic Problems): Chronic Problems (Last Reviewed 02/03/18 @ 09:44 by Charlie Johnson MD) Bilateral carotid artery stenosis (Chronic) Atherosclerotic heart disease of [place] coronary artery without angina pectoris (Chronic) CABG X 5 on 05/09, Lt IT to LAD, SVG to RI, 1st Diag. of LAD, SVG to CFX, RCA; drug-eluting stent to RCA, mid RCA, and distal RCA in April 2016; Old myocardial infarction (Chronic) Ischemic cardiomyopathy (Chronic) Aortocoronary bypass status (Chronic) CABG X 5v on 05/09, Lt IT to LAD, SVG to RI, 1st Diag. 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 Huerta Medical History: Medical History (Last Reviewed 02/03/18 @ 09:44 by Charlie Johnson MD) Bilateral carotid artery stenosis (Chronic) I65.23 Atherosclerotic heart disease of [place] coronary artery without angina pectoris (Chronic) I25.10 CABG X 5 on 05/09, Lt IT to LAD, SVG to RI, 1st Diag. 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) Z79.899 Rheumatoid arthritis (Chronic) M06.9 Coronary artery disease (Chronic) I25.10 Carotid stenosis, right (Chronic) I65.21 CVA (cerebral vascular accident) (Acute) I63.9 Hyperlipidemia (Chronic) E78.5 HTN (hypertension) (Chronic) I10 Allergies No Known Allergies Allergy (Verified 07/29/18 17:30) Home Medications: Ambulatory Orders Medication Instructions Recorded Carvedilol [Coreg (Beta Marlene)] 6.25 mg PO BID 07/03/14 Leflunomide [Arava] 20 mg PO QHS 07/03/14 Lisinopril [Zestril] 5 mg PO QHS 07/03/14 Meloxicam [Mobic] 15 mg PO QHS 07/03/14 Omeprazole [Prilosec] 40 mg PO QHS 07/03/14 Adalimumab [Humira] 40 mg SQ Q14D 04/14/16 nitroglycerin 0.4 mg sublingual 0.4 mg SUBLINGUAL Q5M PRN 05/12/17 tablet oxycodone-acetaminophen 7.5 mg-325 1 tab PO Q8H PRN 02/03/18 mg tablet ranolazine ER 1,000 mg 1,000 mg PO BID #180 tab 07/05/18 tablet,extended release,12 hr Clopidogrel Bisulfate [Plavix] 75 mg PO QHS 07/29/18 Fluoxetine HCl 40 mg PO QHS 07/29/18 Rosuvastatin Calcium [Crestor] 10 mg PO QHS 07/29/18 Surgical History: Surgical History (Last Reviewed 07/29/18 @ 18:48 by Lis Cabezas NP-[facility]) Aortocoronary bypass status (Chronic) Z95.1 CABG X 5v on 05/09, Lt IT to LAD, SVG to RI, 1st Diag. of LAD, SVG to CFX, RCA Status post angioplasty with stent (Chronic) Z95.9 PTCA of RCA, with placement of intracoronary stent X2; 01/15/08 PTCA/stent (EMILIA) X4 to RCA proximal, mid & distal portions; PTCA & stent to TAXUS EMILIA to RCA; 06/10/09 PTCA/stent of pre-existing stent in proximal to mid RCA; LHC, FFR & EMILIA to proximal RCA, as well as angioplasty to mid & distal RCA 04/28/[address] Huerta Surgical History: - - CABG x5, bilateral knee scope, left shoulder surgery, cataracts. Psychiatric History: Depression Lives: Spouse/ Significant Other Smoking Status: Former smoker Alcohol: Rare Drugs: None - *Family History Maternal Family History: Family History (Last Reviewed 07/29/18 @ 18:48 by MAGED Valladares) Father CAD (coronary artery disease) Diabetes History Items: - - Rheumatoid arthritis. Paternal Family History: Family History (Last Reviewed 07/29/18 @ 18:48 by MAGED Valladares) Father CAD (coronary artery disease) Diabetes History Items: Diabetes, Heart Disease Review of Systems Constitutional: Denies: Chills, Fever, Weight Change HEENT: Denies: Head Aches, Sinus Congestion, Sinus Drainage Cardiovascular: Denies: Chest Pain, Palpitations Respiratory: Denies: Cough, Shortness of breath at rest, Sputum production Gastrointestinal: Denies: Abdominal Pain, Nausea, Vomiting Genitourinary: Denies: Dysuria Musculoskeletal: Reports: - - Left knee pain, joint swelling. Skin: Denies: Rash, Wounds Neurological: Denies: Numbness, Tingling, Focal weakness Psychiatric: Reports: Depression. Denies: Anxiety, Homicidal Ideations, Suicidal Ideations Hematologic/ Lymphatic: Denies: Easy Bruising, Easy Bleeding - Physical Exam General: Alert, Oriented x3, Cooperative HEENT: Atraumatic, PERRLA, EOMI, Normocephalic Neck: Supple, No JVD, Negative Carotid Bruits Lungs: Clear to auscultation, Normal air movement Cardiovascular: Regular rate, Regular Rhythm, Normal S1, Normal S2, No murmurs Abdomen: Bowel Sounds Present, Soft, Non Tender, Non-Distended, Obese Extremities: No clubbing, No cyanosis, Capillary Refill Less than 3 Seconds, Edema - Left knee Skin: No rashes, No breakdown, - - Left knee with edema, no significant erythema. Musculoskeletal: No Tenderness to Palpation of Joints or Extremities Neurological: Cranial nerves II-XII grossly intact, Neuro grossly intact Psych/Mental Status: Normal Affect, Appropriate Vital Signs Temp Pulse Resp BP Pulse Ox 97.8 F 85 16 141/85 H 98 07/29/18 17:44 07/29/18 17:44 07/29/18 17:44 07/29/18 17:30 07/29/18 17:44 Oxygen Delivery Method Room Air Weight: 227 lb 4.745 oz Body Mass Index (BMI) 33.5 Laboratory Tests Past 24 Hrs 07/29/18 18:10 Sodium 135 L Potassium 3.7 Chloride 103 Carbon Dioxide 25.0 Anion Gap 7 BUN 15 Creatinine 0.69 L Estim Creat Clear Calc 112.43 Est GFR (MDRD) Af Amer 150 Est GFR (MDRD) Non-Af 124 BUN/Creatinine Ratio 21.7 H Glucose 96 Calcium 8.7 Assessment/Plan 1. Left knee septic joint- Recent cortisone injection 07/21/[address] Rodriges. Aspirated 07/29/18. Plan for surgical intervention tomorrow with Dr. Rodriguez. Cultures pending. Continue IV vanc and IV zosyn pending cultures. 2. CAD status post CABG x5 2017-denies chest pain. Follows with Dr. Johnson. Continue carvedilol, lisinopril, Ranexa, statin, plavix. 3. Hypertension-stable, continue home carvedilol, lisinopril regimen. 4. Hyperlipidemia-continue statin. 5. Bilateral carotid artery disease- carotid US 04/29/16 with less than 50% stenosis bilaterally. 6. Rheumatoid arthritis-on Humira, Arava. Hold Humira prior to surgery. 7. History of CVA-continue statin. Hold plavix given plan for surgery. 8. Depression-continue home fluoxetine regimen. 9. Obesity- encouraged diet and lifestyle modifications. 10. GERD-continue omeprazole regimen. DVT prophylaxis- Lovenox sc, hold prior to surgery This patient was seen by MAGED Valladares under the supervision of Dr. Soria.
[2018-07-29 19:45] VITALS: BP 133/68; PULSE 65; RESP 16; TEMP 36.8; O2SAT 100; BMI 34.7
--- NOTE | 2018-07-29 19:53 | PCM.RX.CS ---
Consult Pharmacy has been consulted to manage selected antiobiotic: Vancomycin Type of Consult: New start Suspected Infection: Other - Septic Joint infection per provider documentation Prior Doses of Antibiotics Received/Current Regimen: Medications Vancomycin HCl 1,500 mg/ (Sodium Chloride) 530 mls @ 250 mls/hr IV X1 ONE Stop: 07/29/18 20:37 Last Admin: 07/29/18 19:06 Dose: 250 mls/hr Labs: Sodium 135 mmol/L (136-145) L 07/29/18 18:10 Potassium 3.7 mmol/L (3.5-5.1) 07/29/18 18:10 Chloride 103 mmol/L (98-107) 07/29/18 18:10 Carbon Dioxide 25.0 mmol/L (21.0-32.0) 07/29/18 18:10 Anion Gap 7 (5-15) 07/29/18 18:10 BUN 15 mg/dL (7-18) 07/29/18 18:10 Creatinine 0.69 mg/dL (0.70-1.30) L 07/29/18 18:10 Est GFR (MDRD) Af Amer 150 mL/min (>60) 07/29/18 18:10 Est GFR (MDRD) Non-Af 124 mL/min (>60) 07/29/18 18:10 BUN/Creatinine Ratio 21.7 RATIO (10-20) H 07/29/18 18:10 Glucose 96 mg/dL (74-106) 07/29/18 18:10 Weight used for dosin kg Estimated Creatinine Clearance: 112ML/MIN Pharmacy Plan for Drug Dosing: PLAN/RECOMMENDATIONS 1. Vancomycin 1250mg IV Q8h to start 07/30/18 @0300 (8hrs from ED initial dose) 2. Trough scheduled prior to 4th total dose per protocol 07/30/18 @1830 3. Pharmacy Service will continue to monitor and adjust dosing as required.
[2018-07-29] MEDS: 0.9% Normal Saline 1,000 ML 80 ML IV (19:57)
[2018-07-29] MEDS: oxyCODONE 5 MG Tablet PO (19:57)
[2018-07-29] MEDS: Lisinopril 5 MG Tablet PO (21:36)
[2018-07-29] MEDS: FLUoxetine 20 MG Capsule 40 MG PO (21:36)
[2018-07-29] MEDS: Clopidogrel Bisulfate 75 MG Tablet PO (21:37)
[2018-07-29] MEDS: Carvedilol 6.25 MG Tablet PO (21:37)
[2018-07-29] MEDS: Ranolazine 500 MG Tablet 1000 MG PO (21:37)
[2018-07-29] MEDS: Pantoprazole Sodium 40 MG Tablet PO (21:37)
[2018-07-30] VITALS (11 sets, daily range): BP systolic 108–153; BP diastolic 62–84; PULSE 60–78; RESP 16–18; TEMP 36.6–37.1; O2SAT 95–97; BMI 34.7
[2018-07-30] MEDS: oxyCODONE 5 MG Tablet PO ×4 (02:46→19:51)
[2018-07-30] MEDS: 0.9% Normal Saline 1,000 ML 80 ML IV ×2 (07:55→10:15)
[2018-07-30 08:07] LABS: Absolute Lymphocyte Count 2.34 X10^3/ul (0.83-4.51); Basophil# 0.01 X10^3/uL; Basophil% 0.1 % (0-1); Eosinophil# 0.09 X10^3/uL; Eosinophils% 1.2 % (0-5); Hematocrit 35.4 % (40-54); Hemoglobin 11.7 g/dl (13.0-16.5); Lymphocyte # 2.34 X10^3/ul (4.0); Lymphocyte % 30.5 % (19-41); Mean Corp Hgb Conc 33.1 g/gl (32-36); Mean Corpuscular Hgb 32.7 pg (27.0-32.0); Mean Corpuscular Volume 98.9 fL (80-94); Mean Platelet Vol. 8.5 fl (6.2-12.0); Monocyte# 1.24 X10^3/uL; Monocyte% 16.2 % (0-10); Neutrophil # 3.97 X10^3/uL (2.7-7.7); Neutrophil % 51.7 % (47-70); Platelet Count 183 K/mm3 (150-450); RBC Distribution Width CV 14.5 % (11.6-14.6); RBC Distribution Width SD 50.1 fl (35.1-43.9); Red Blood Count 3.58 M/mm3 (4.6-6.2); White Blood Count 7.7 K/mm3 (4.4-11.0)
[2018-07-30 08:08] LABS: POSITIVE COUNT NO; POSITIVE DIFFERENTIAL NO; POSITIVE MORPHOLOGY NO
--- NOTE | 2018-07-30 08:19 | PCM.HP.BLA ---
History and Physical Date of Admission: 07/29/18 Patient is a 63-year-old male who last had a knee injection by Dr. Liang. [place] okay over the weekend having increasing pain on Wednesday after doing some yard work when saw Dr. Liang on who looked at the knee did not find that there was any issues with that sent patient home patient having increasing pain and seen in my office on Wednesday. Patient have about 55 cc of fluid drained from his left knee. At that point was thought to be probable infection versus a history of inflammatory arthritis. Labs and culture sent and patient was called with results. Results show cell count of over 50,000 and this elevated CRP and sed rate. At this point patient was told to go to the emergency room at for a washout on Wednesday. Patient has cOMORBID conditions as [place] chart which complicate his condition.
--- NOTE | 2018-07-30 08:21 | PCM.CONS.GEN ---
Problem List (1) Septic arthritis of knee, left Status: Acute Qualifiers: Septic arthritis organism: due to unspecified organism Qualified Code(s): M00.9 - Pyogenic arthritis, unspecified Reason for Consult Date of Consultation: 07/29/18 History of Present Illness: The patient is a 63 year old M [Patient is a 63-year-old male who last had a knee injection by Dr. Liang. [place] okay over the weekend having increasing pain on Wednesday after doing some yard work when saw Dr. Liang on who looked at the knee did not find that there was any issues with that sent patient home patient having increasing pain and seen in my office on Wednesday. Patient have about 55 cc of fluid drained from his left knee. At that point was thought to be probable infection versus a history of inflammatory arthritis. Labs and culture sent and patient was called with results. Results show cell count of over 50,000 and this elevated CRP and sed rate. At this point patient was told to go to the emergency room at for a washout on Wednesday. Patient has cOMORBID conditions as IN chart which complicate his condition.] Past Medical History Past Medical History (Chronic Problems): Chronic Problems (Last Reviewed 07/29/18 @ 18:48 by Lis Cabezas NP-[facility]) Bilateral carotid artery stenosis (Chronic) Atherosclerotic heart disease of [place] coronary artery without angina pectoris (Chronic) CABG X 5 on 05/09, Lt IT to LAD, SVG to RI, 1st Diag. of LAD, SVG to CFX, RCA; drug-eluting stent to RCA, mid RCA, and distal RCA in April 2016; Old myocardial infarction (Chronic) Ischemic cardiomyopathy (Chronic) Aortocoronary bypass status (Chronic) CABG X 5v on 05/09, Lt IT to LAD, SVG to RI, 1st Diag. 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 Huerta Medical History: Medical History (Last Reviewed 02/03/18 @ 09:44 by Charlie Johnson MD) Bilateral carotid artery stenosis (Chronic) I65.23 Atherosclerotic heart disease of [place] coronary artery without angina pectoris (Chronic) I25.10 CABG X 5 on 05/09, Lt IT to LAD, SVG to RI, 1st Diag. of LAD, SVG to CFX, RCA; drug-eluting stent to RCA, mid RCA, and distal RCA in April 2016; Old myocardial infarction (Chronic) I25.2 Ischemic cardiomyopathy (Chronic) I25.5 FDC use of drug (Chronic) Z79.899 Rheumatoid arthritis (Chronic) M06.9 Coronary artery disease (Chronic) I25.10 Carotid stenosis, right (Chronic) I65.21 CVA (cerebral vascular accident) (Chronic) I63.9 Hyperlipidemia (Chronic) E78.5 HTN (hypertension) (Chronic) I10 Allergies No Known Allergies Allergy (Verified 07/29/18 17:30) Home Medications: Ambulatory Orders Medication Instructions Recorded Carvedilol [Coreg (Beta Marlene)] 6.25 mg PO BID 07/03/14 Leflunomide [Arava] 20 mg PO QHS 07/03/14 Lisinopril [Zestril] 5 mg PO QHS 07/03/14 Meloxicam [Mobic] 15 mg PO QHS 07/03/14 Omeprazole [Prilosec] 40 mg PO QHS 07/03/14 Adalimumab [Humira] 40 mg SQ Q14D 04/14/16 nitroglycerin 0.4 mg sublingual 0.4 mg SUBLINGUAL Q5M PRN 05/12/17 tablet oxycodone-acetaminophen 7.5 mg-325 1 tab PO Q8H PRN 02/03/18 mg tablet ranolazine ER 1,000 mg 1,000 mg PO BID #180 tab 07/05/18 tablet,extended release,12 hr Clopidogrel Bisulfate [Plavix] 75 mg PO QHS 07/29/18 Fluoxetine HCl 40 mg PO QHS 07/29/18 Rosuvastatin Calcium [Crestor] 10 mg PO QHS 07/29/18 Surgical History: Surgical History (Last Reviewed 07/29/18 @ 18:48 by MAGED Valladares) Aortocoronary bypass status (Chronic) Z95.1 CABG X 5v on 05/09, Lt IT to LAD, SVG to RI, 1st Diag. of LAD, SVG to CFX, RCA Status post angioplasty with stent (Chronic) Z95.9 PTCA of RCA, with placement of intracoronary stent X2; 01/15/08 PTCA/stent (EMILIA) X4 to RCA proximal, mid & distal portions; PTCA & stent to TAXUS EMILIA to RCA; 06/10/09 PTCA/stent of pre-existing stent in proximal to mid RCA; LHC, FFR & EMILIA to proximal RCA, as well as angioplasty to mid & distal RCA 04/28/[address] Huerta Surgical History: - - CABG x5, bilateral knee scope, left shoulder surgery, cataracts. Psychiatric History: Depression Lives: Spouse/ Significant Other Smoking Status: Former smoker Alcohol: Rare Drugs: None - *Family History Maternal Family History: Family History (Last Reviewed 07/29/18 @ 18:48 by MAGED Valladares) Father CAD (coronary artery disease) Diabetes History Items: - - Rheumatoid arthritis. Paternal Family History: Family History (Last Reviewed 07/29/18 @ 18:48 by MAGED Valladares) Father CAD (coronary artery disease) Diabetes History Items: Diabetes, Heart Disease Review of Systems Constitutional: Denies: Chills, Fever, Weight Change HEENT: Denies: Head Aches, Sinus Congestion, Sinus Drainage Cardiovascular: Denies: Chest Pain, Palpitations Respiratory: Denies: Cough, Shortness of breath at rest, Sputum production Gastrointestinal: Denies: Abdominal Pain, Nausea, Vomiting Genitourinary: Denies: Dysuria Musculoskeletal: Reports: Joint Pain, Joint swelling, Joint Tenderness Skin: Denies: Rash, Wounds Neurological: Denies: Numbness, Tingling, Focal weakness Psychiatric: Denies: Anxiety, Depression, Homicidal Ideations, Suicidal Ideations Hematologic/ Lymphatic: Denies: Easy Bruising, Easy Bleeding Patient Problems: Active and Suspected Problems (Last Reviewed 02/03/18 @ 09:44 by Charlie Johnson MD) Septic arthritis of knee, left (Acute) - Physical Exam General: Alert, Oriented x3, Cooperative HEENT: Atraumatic, PERRLA, EOMI, Normocephalic Neck: Supple, No JVD, Negative Carotid Bruits Lungs: Clear to auscultation, Normal air movement Cardiovascular: Regular rate, No murmurs Abdomen: Bowel Sounds Present, Soft, Non Tender Extremities: No edema, Capillary Refill Less than 3 Seconds Skin: No rashes, No breakdown Musculoskeletal: Tenderness Neurological: Cranial nerves II-XII grossly intact Psych/Mental Status: Normal Affect, Appropriate Vital Signs Temp Pulse Resp BP Pulse Ox 98.3 F 66 16 131/69 H 97 07/30/18 07:22 07/30/18 07:22 07/30/18 07:22 07/30/18 07:22 07/30/18 07:22 Oxygen Delivery Method Room Air Weight: 235 lb Body Mass Index (BMI) 34.7 Intake and Output for Last 24 Hours 07/28/18 07/29/18 07/30/18 23:59 23:59 23:59 Intake Total 758 / 758 833 / 833 Balance 758 / 758 833 / 833 Laboratory Tests Past 24 Hrs 07/29/18 07/30/18 07/30/18 18:10 07:34 07:34 WBC 7.7 RBC 3.58 L Hgb 11.7 L Hct 35.4 L MCV 98.9 H MCH 32.7 H MCHC 33.1 RDW 14.5 RDW Differential 50.1 H Plt Count 183 MPV 8.5 Immature Gran % (Auto) 0.300 Neut % (Auto) 51.7 Lymph % (Auto) 30.5 [place] % (Auto) 16.2 H Eos % (Auto) 1.2 Baso % (Auto) 0.1 Absolute Neuts (auto) 4.0 Absolute Lymphs (auto) 2.34 Total Counted Not Reportable Sodium 135 L Pending Potassium 3.7 Pending Chloride 103 Pending Carbon Dioxide 25.0 Pending Anion Gap 7 Pending BUN 15 Pending Creatinine 0.69 L Pending Estim Creat Clear Calc 112.43 Est GFR (MDRD) Af Amer 150 Pending Est GFR (MDRD) Non-Af 124 Pending BUN/Creatinine Ratio 21.7 H Pending Glucose 96 Pending Calcium 8.7 Pending Assessment/Plan All Active Problems (Last Reviewed 02/03/18 @ 09:44 by Charlie Johnson MD) Septic arthritis of knee, left (Acute) Left knee possible versus probable septic arthritis Patient history complicated by the fact that he has rheumatoid arthritis he is on Humira and on Plavix had a steroid injection over a week ago increasing pain and swelling cell count of 50,000 still could be a inflammatory arthritis but most likely due to the look of the cloudy appearance of the synovial fluid in the office most likely infectious Started on Vanco and Zosyn pending culture results Patient to go to the OR for left knee washout next Call with increased pain numbness tingling further issues arise Patient n.p.o. after midnight Admit with med consult next Okay to continue Plavix We will start Lovenox postop
[2018-07-30 08:22] LABS: Anion Gap 5 (5-15); BUN 12 mg/dL (7-18); BUN/Creat Ratio 22.1 RATIO (10-20); Calcium,Total 8.2 mg/dL (8.5-10.1); Chloride 108 mmol/L (98-107); Creatinine, Serum 0.54 mg/dL (0.70-1.30); EST Glomerular Filtration Rate 163 mL/min (>60); Est Glom Filt Rate - Afr Amer 198 mL/min (>60); Estimated Creatinine Clearance 143.65 ml/min; Glucose 126 mg/dL (74-106); Sodium Level 138 mmol/L (136-145)
--- NOTE | 2018-07-30 08:47 | PCM.PROGNOTE ---
<Lis Cabezas - Last Filed: 07/30/18 12:37> Patient Problems: Active and Suspected Problems (Last Reviewed 02/03/18 @ 09:44 by Charlie Johnson MD) Septic arthritis of knee, left (Acute) Subjective: Patient seen and examined. Underwent left knee synovectomy with irrigation and debridement today with Dr. Rodriguez. Patient is in room resting comfortably. Denies pain currently. Denies fever, chills. No other complaints. - Physical Exam General: Alert, Oriented x3, Cooperative HEENT: Atraumatic, PERRLA, EOMI, Normocephalic Neck: Supple, No JVD, Negative Carotid Bruits Lungs: Clear to auscultation, Normal air movement Cardiovascular: Regular rate, Regular Rhythm, Normal S1, Normal S2, No murmurs Abdomen: Bowel Sounds Present, Soft, Non Tender, Non-Distended, Obese Extremities: No clubbing, No cyanosis, No edema, Capillary Refill Less than 3 Seconds Skin: No rashes, No breakdown Musculoskeletal: No Tenderness to Palpation of Joints or Extremities, - - Left knee dressing and drain intact. Neurological: Cranial nerves II-XII grossly intact, Neuro grossly intact Psych/Mental Status: Normal Affect, Appropriate Vital Signs Temp Pulse Resp BP Pulse Ox 98.3 F 66 16 131/69 H 97 07/30/18 07:22 07/30/18 07:22 07/30/18 07:22 07/30/18 07:22 07/30/18 07:22 Oxygen Delivery Method Room Air Weight: 235 lb Body Mass Index (BMI) 34.7 Intake and Output for Last 24 Hours 07/28/18 07/29/18 07/30/18 23:59 23:59 23:59 Intake Total 758 / 758 833 / 833 Balance 758 / 758 833 / 833 Laboratory Tests Past 24 Hrs 07/29/18 07/30/18 07/30/18 18:10 07:34 07:34 WBC 7.7 RBC 3.58 L Hgb 11.7 L Hct 35.4 L MCV 98.9 H MCH 32.7 H MCHC 33.1 RDW 14.5 RDW Differential 50.1 H Plt Count 183 MPV 8.5 Immature Gran % (Auto) 0.300 Neut % (Auto) 51.7 Lymph % (Auto) 30.5 [place] % (Auto) 16.2 H Eos % (Auto) 1.2 Baso % (Auto) 0.1 Absolute Neuts (auto) 4.0 Absolute Lymphs (auto) 2.34 Total Counted Not Reportable Sodium 135 L 138 Potassium 3.7 4.0 Chloride 103 108 H Carbon Dioxide 25.0 25.0 Anion Gap 7 5 BUN 15 12 Creatinine 0.69 L 0.54 L Estim Creat Clear Calc 112.43 143.65 Est GFR (MDRD) Af Amer 150 198 Est GFR (MDRD) Non-Af 124 163 BUN/Creatinine Ratio 21.7 H 22.1 H Glucose 96 126 H Calcium 8.7 8.2 L Medical Necessity - Tobacco Use Smoking Status: Former smoker Assessment/Plan All Active Problems (Last Reviewed 02/03/18 @ 09:44 by Charlie Johnson MD) Septic arthritis of knee, left (Acute) 1. Left knee septic joint- Recent cortisone injection 07/21/[address] Rodriges. Aspirated 07/29/18. Salk, synovectomy, irrigation and debridement 07/30/[address] Rodriguez. Cultures pending. Continue IV vanc and IV zosyn pending cultures. PRN pain regimen. Weight-bear as tolerated left knee. Drain in place, plan to remove tomorrow per ortho. 2. CAD status post CABG x5 2017-denies chest pain. Follows with Dr. Johnson. Continue carvedilol, lisinopril, Ranexa, statin, plavix. 3. Hypertension-stable, continue home carvedilol, lisinopril regimen. 4. Hyperlipidemia-continue statin. 5. Bilateral carotid artery disease- carotid US 04/29/16 with less than 50% stenosis bilaterally. 6. Rheumatoid arthritis-on Humira, Arava. Hold until further advised by ortho. 7. History of CVA-continue statin, plavix. 8. Depression-continue home fluoxetine regimen. 9. Obesity- encouraged diet and lifestyle modifications. 10. GERD-continue omeprazole regimen. DVT prophylaxis- per surgery preference. This patient was seen by MAGED Valladares under the supervision of Dr. Mccoy. <Estephania Mccoy - Last Filed: 07/30/18 13:42> - Physical Exam Vital Signs Temp Pulse Resp BP Pulse Ox 98.1 F 64 16 108/68 95 07/30/18 12:10 07/30/18 12:10 07/30/18 12:10 07/30/18 12:10 07/30/18 12:10 Oxygen Delivery Method Room Air Weight: 235 lb 0.204 oz Body Mass Index (BMI) 34.7 Intake and Output for Last 24 Hours 07/28/18 07/29/18 07/30/18 23:59 23:59 23:59 Intake Total 758 / 758 2167 / 2167 Output Total Balance 758 / 758 2152 / 215 Microbiology Past 72 Hours 07/30/18 Unknown Gram Stain - Final Fluid - Other Laboratory Tests Past 24 Hrs 07/29/18 07/30/18 07/30/18 18:10 07:34 07:34 WBC 7.7 RBC 3.58 L Hgb 11.7 L Hct 35.4 L MCV 98.9 H MCH 32.7 H MCHC 33.1 RDW 14.5 RDW Differential 50.1 H Plt Count 183 MPV 8.5 Immature Gran % (Auto) 0.300 Neut % (Auto) 51.7 Lymph % (Auto) 30.5 [place] % (Auto) 16.2 H Eos % (Auto) 1.2 Baso % (Auto) 0.1 Absolute Neuts (auto) 4.0 Absolute Lymphs (auto) 2.34 Total Counted Not Reportable Sodium 135 L 138 Potassium 3.7 4.0 Chloride 103 108 H Carbon Dioxide 25.0 25.0 Anion Gap 7 5 BUN 15 12 Creatinine 0.69 L 0.54 L Estim Creat Clear Calc 112.43 143.65 Est GFR (MDRD) Af Amer 150 198 Est GFR (MDRD) Non-Af 124 163 BUN/Creatinine Ratio 21.7 H 22.1 H Glucose 96 126 H Calcium 8.7 8.2 L Assessment/Plan Hospitalist note: I am seeing this patient in conjunction with Lis Cabezas. I independently seen and examined the patient. Progress note above and laboratory reviewed and I agree with the above treatment plan. Patient seen and examined. He just came back from the OR after he underwent sinusectomy/irrigation/debridement of the left knee for probable left knee septic arthritis. At this time, he complained of left knee pain, dull aching pain, 6 to 7% severity, not radiating, manageable with current pain medication regimen. He denies fever or chills. He has been afebrile, other vital signs are stable. He had steroid injection recently of the left knee for osteoarthritis. - Physical Exam General: Alert, Oriented x3, Cooperative, No apparent distress. HEENT: Atraumatic, PERRLA, EOMI. Neck: Supple, No JVD, Negative Carotid Bruits, Trachea Midline, Thyroid Normal. Lungs: Clear to auscultation, Normal air movement, No rhonchi, No wheeze, No rales. Cardiovascular: Regular rate, Regular Rhythm, Normal S1, Normal S2, PMI Normal. Abdomen: Bowel Sounds Present, Soft, Non Tender, Non-Distended, No Hepato-splenomegaly. Extremities: No clubbing, No cyanosis, No edema Skin: No rashes, No breakdown Neurological: Neuro grossly intact Vital Signs are stable. Assessment and plan: #1 probable left knee septic arthritis: Status post arthrocentesis, synovectomy, irrigation/debridement, drain placed, postoperative day 0. Patient is on IV vancomycin and Zosyn. He has been afebrile, no leukocytosis. Orthopedic surgery is on the case. Synovial fluid culture sent, synovial fluid analysis pending. Plan to repeat CBC tomorrow morning, continue same treatment. #2 rheumatoid arthritis: Stable, no acute issues. Patient was on Humira and Arava. Humira on hold at this time. #3 hypertension: Blood pressure stable, continue current medications. #4 other chronic medical problems: Stable, continue current medications as above. This note was generated with [employer] dictation software. It may contain incorrect words, spelling, and punctuation that were not noted in checking the note before signing. Code Visit Inpatient E&M: 30614 Subs Hosp L2
[2018-07-30] MEDS: Epinephrine (1 mg/ml) 1 MG/ML VIAL (08:53)
[2018-07-30] MEDS: Mupirocin Ointment 22gm Tube 1 APPLIC (08:53)
--- NOTE | 2018-07-30 09:03 | PCM.OPRPT ---
Problem List (1) Septic arthritis of knee, left Status: Acute Qualifiers: Septic arthritis organism: due to unspecified organism Qualified Code(s): M00.9 - Pyogenic arthritis, unspecified Report of Operation Date of Procedure: 07/30/18 Pre-Operative Diagnosis: left probable pyogenic knee Post-Operative Diagnosis: same Surgery/Procedure Performed:: salk, synovectomy, irrigation/debridement Type of Anesthesia:: General Anesthesiologist: Mary Grant Specimen's removed: left knee synovial fluid Estimated Blood Loss (mL): none Fluids Replaced: 1000ml lr Description of Procedure: Preop note Patient is a 63-year-old male well-known to me in clinic. Patient about a week ago getting left knee injection by Dr. Liang. Over the weekend was fine has started increasing pain that Wednesday and Wednesday. Went back to see Dr. Cordova and at evaluated thing at that time it was infected however patient was having increased increasing pain I saw him in my office on Wednesday. The knee the knee fluid itself was cloudy sent for cell count which was over 50,000 which is either inflammatory vs infectious in nature, but patient sent to the emergency room for further evaluation and surgical treatment today. Risks benefits and alternatives surgery discussed with patient and. Risks including but not limited to blood loss, blood clot, infection, neurovascular, failure procedure, loss of life and loss of limb. Patient is aware and would like proceed with left knee arthroscopy washout. Please note the patient received Vanco and Zosyn his cultures that were taken in the office on Wednesday are still pending Op note Patient seen and examined preoperative holding area. Left knee was marked.. Patient brought to the operating room placed supine on the operating table. Signing, anesthesia and antibiotics was running from the floor. He was prepped and draped in usual sterile fashion. The left knee was elevated and tourniquet was raised her pressure of 250 torr. Timeout was performed. We created an anterior lateral portal. We began our diagnostic arthroscopy. Before we did that we after inserting the trocar into the knee thickened synovial fluid was removed and sent for further evaluation. We then created an anterior medial portal under direct visualization. We able to shave out extensive synovitis throughout the knee as well as clean out the need to clear fluid there was no further thickened knee synovial fluid at the end of the remainder of the case. Again was washed out 9 L. We then placed a deja drain superior lateral aspect of the knee we left the portals open for further drainage as well. Sterile dressings were applied. Patient tolerated procedure well there are no comp occasions transferred to recovery room in stable condition. Total working time of the tourniquet was 22 minutes. Postop note Weight-bear as tolerated left knee Call with increased pain numbness tingling or further issues arise Await final cultures to determine what patient can go home on Med following cont vanc/gent until final cx results in We will pull drain tomorrow lovenox postop Continue antibiotics until culture results final This note was generated with [employer] dictation software. It may contain incorrect words, spelling, and punctuation that were not noted in checking the note before signing. - Admit VTE Documentation VTE Present on Admission: Yes VTE Mechan Device Prophylaxis: SCD's VTE Pharm Prophylaxis ordered?: Yes
--- NOTE | 2018-07-30 09:52 | NURSING ---
dr anguiano called nursing to let dr allen that he is a consult and dr allen is the primary. called dr mcfarlane to notify that she is primary dr. she stated that she is the primary dr.
[2018-07-30] MEDS: Carvedilol 6.25 MG Tablet PO ×2 (10:27→21:31)
[2018-07-30] MEDS: Ranolazine 500 MG Tablet 1000 MG PO ×2 (10:27→21:30)
--- NOTE | 2018-07-30 10:50 | CM.UR ---
RN CM Assessment Met face to face with patient for initial transition planning/care coordination assessment. Introduced myself and my role. Verb understanding and agreement for assessment. Presentation: Increased swelling and pain of Left knee after cortisone injection. PCP: Nory Specialists: Dr. Rodriguez, Dr. Clinton Preferred Pharmacy: [facility] retail pharmacy Insurance: [facility] [employer] Prescription Benefit: yes LNOK: Cristina, spouse. Has a large amount of family support. Adult daughter lives in home. Home: [facility]. 13 steps to main floor. 2 steps up to where bedroom is and 2 steps to kitchen area. ADLs: normally independent. Transportation: Drives self and when not able to, family will drive him. DME: cane, back brace Advance Directives: On file, Cristina is DPOA DC PLAN: home with OP therapy. Abram Mullins RN, CCM.
[2018-07-30 19:22] LABS: Vancomycin, Trough Level 10.3 ug/mL (5.0-15.0)
[2018-07-30] MEDS: Lisinopril 5 MG Tablet PO (21:30)
[2018-07-30] MEDS: FLUoxetine 20 MG Capsule 40 MG PO (21:30)
[2018-07-30] MEDS: Pantoprazole Sodium 40 MG Tablet PO (21:31)
[2018-07-30] MEDS: Atorvastatin Calcium 20 MG Tablet PO (21:31)
[2018-07-30] MEDS: Clopidogrel Bisulfate 75 MG Tablet PO (21:31)
[2018-07-31 01:48] VITALS: BP 120/39; PULSE 64; RESP 19; TEMP 36.9; O2SAT 97
[2018-07-31] MEDS: 0.9% Normal Saline 1,000 ML 80 ML IV ×2 (01:57→17:44)
--- NOTE | 2018-07-31 04:48 | PCM.RX.CS ---
Consult Pharmacy has been consulted to manage selected antiobiotic: Vancomycin Type of Consult: Follow-up Suspected Infection: Sepsis Labs: Sodium 138 mmol/L (136-145) 07/30/18 07:34 Potassium 4.0 mmol/L (3.5-5.1) 07/30/18 07:34 Chloride 108 mmol/L (98-107) H 07/30/18 07:34 Carbon Dioxide 25.0 mmol/L (21.0-32.0) 07/30/18 07:34 Anion Gap 5 (5-15) 07/30/18 07:34 BUN 12 mg/dL (7-18) 07/30/18 07:34 Creatinine 0.54 mg/dL (0.70-1.30) L 07/30/18 07:34 Est GFR (MDRD) Af Amer 198 mL/min (>60) 07/30/18 07:34 Est GFR (MDRD) Non-Af 163 mL/min (>60) 07/30/18 07:34 BUN/Creatinine Ratio 22.1 RATIO (10-20) H 07/30/18 07:34 Glucose 126 mg/dL (74-106) H 07/30/18 07:34 Vancomycin Trough 10.3 ug/mL (5.0-15.0) 07/30/18 18:30 Microbiology: Microbiology 07/30/18 Unknown Fluid - Other Gram Stain - Final Weight used for dosin kg Estimated Creatinine Clearance: 143 Goal Trough: 15-20 mcg/mL Pharmacy Plan for Drug Dosing: Pharmacy Service will continue to monitor and adjust dosing as required. Medications Vancomycin HCl 1,750 mg/ (Sodium Chloride) 535 mls @ 250 mls/hr IV Q8H NINOSKA TROUGH 10.3 INCREASE TO 1750 Q8H NEXT TR 08/01 @ 1030 Follow-Up Labs: Trough Vancomycin Labs to be done on [date and time ordered]: 08/01@1100
[2018-07-31 06:03] LABS: Hematocrit 33.3 % (40-54); Mean Corpuscular Hgb 32.5 pg (27.0-32.0); Mean Corpuscular Volume 98.5 fL (80-94); Platelet Count 177 K/mm3 (150-450); RBC Distribution Width CV 14.1 % (11.6-14.6); RBC Distribution Width SD 48.9 fl (35.1-43.9); Red Blood Count 3.38 M/mm3 (4.6-6.2); White Blood Count 11.1 K/mm3 (4.4-11.0)
[2018-07-31 06:15] LABS: Scan Indicated on CBC? Y/N NO
[2018-07-31] MEDS: Enoxaparin 40 MG/0.4 ML Syringe SC (06:17)
[2018-07-31 10:47] VITALS: BP 133/57; PULSE 64; RESP 18; TEMP 37; O2SAT 98
[2018-07-31] MEDS: Carvedilol 6.25 MG Tablet PO ×2 (10:48→21:41)
[2018-07-31] MEDS: Ranolazine 500 MG Tablet 1000 MG PO ×2 (10:49→21:42)
[2018-07-31] MEDS: oxyCODONE 5 MG Tablet PO ×2 (10:54→17:42)
--- NOTE | 2018-07-31 11:27 | PCM.PROGNOTE ---
<Lis Cabezas - Last Filed: 07/31/18 11:32> Patient Problems: Active and Suspected Problems (Last Reviewed 02/03/18 @ 09:44 by Charlie Johnson MD) Septic arthritis of knee, left (Acute) Subjective: Patient seen and examined. Resting comfortably in bed. Denies significant left knee pain. Has been ambulating without difficulty. No other complaints. - Physical Exam General: Alert, Oriented x3, Cooperative HEENT: Atraumatic, PERRLA, EOMI, Normocephalic Neck: Supple, No JVD, Negative Carotid Bruits Lungs: Clear to auscultation, Normal air movement Cardiovascular: Regular rate, Regular Rhythm, Normal S1, Normal S2, No murmurs Abdomen: Bowel Sounds Present, Soft, Non Tender, Non-Distended, Obese Extremities: No clubbing, No cyanosis, No edema, Capillary Refill Less than 3 Seconds Skin: No rashes, No breakdown, - - Left knee dressing and drain intact. Musculoskeletal: No Tenderness to Palpation of Joints or Extremities Neurological: Cranial nerves II-XII grossly intact, Neuro grossly intact Psych/Mental Status: Normal Affect, Appropriate Vital Signs Temp Pulse Resp BP Pulse Ox 98.6 F 64 18 133/57 H 98 07/31/18 10:47 07/31/18 10:47 07/31/18 10:47 07/31/18 10:47 07/31/18 10:47 Oxygen Delivery Method Room Air Weight: 235 lb 0.204 oz Body Mass Index (BMI) 34.7 Intake and Output for Last 24 Hours 07/29/18 07/30/18 07/31/18 23:59 23:59 23:59 Intake Total 758 / 758 3428 / 3428 2326 / 2326 Output Total 45 / 45 945 / 945 Balance 758 / 758 3383 / 3383 1381 / 1381 Microbiology Past 72 Hours 07/30/18 Unknown Gram Stain - Final Fluid - Other Laboratory Tests Past 24 Hrs 07/30/18 07/31/18 18:30 05:15 WBC 11.1 H RBC 3.38 L Hgb 11.0 L Hct 33.3 L MCV 98.5 H MCH 32.5 H MCHC 33.0 RDW 14.1 RDW Differential 48.9 H Plt Count 177 MPV 9.0 Vancomycin Trough 10.3 Medical Necessity - Tobacco Use Smoking Status: Former smoker Assessment/Plan All Active Problems (Last Reviewed 02/03/18 @ 09:44 by Charlie Johnson MD) Septic arthritis of knee, left (Acute) 1. Left knee septic joint- Recent cortisone injection 07/21/[address] Rodriges. Aspirated 07/29/18. Arthrocentesis, synovectomy, irrigation and debridement 07/30/[address] Rodriguez. Cultures pending. Continue IV vanc and IV zosyn pending cultures. PRN pain regimen. Weight-bear as tolerated left knee. Drain in place. Further management and disposition per ortho. 2. CAD status post CABG x5 2017-denies chest pain. Follows with Dr. Johnson. Continue carvedilol, lisinopril, Ranexa, statin, plavix. 3. Hypertension-stable, continue home carvedilol, lisinopril regimen. 4. Hyperlipidemia-continue statin. 5. Bilateral carotid artery disease- carotid US 04/29/16 with less than 50% stenosis bilaterally. 6. Rheumatoid arthritis-on Humira, Arava. Hold until further advised by ortho. 7. History of CVA-continue statin, plavix. 8. Depression-continue home fluoxetine regimen. 9. Obesity- encouraged diet and lifestyle modifications. 10. GERD-continue omeprazole regimen. DVT prophylaxis- Lovenox sc. Patient is stable from medical standpoint. Further management and discharge disposition per orthopedics. Medical services will sign off at this time. This patient was seen by MAGED Valladares under the supervision of Dr. Mccoy. <Estephania Mccoy E - Last Filed: 07/31/18 13:13> - Physical Exam Vital Signs Temp Pulse Resp BP Pulse Ox 98.6 F 64 18 133/57 H 98 07/31/18 10:47 07/31/18 10:47 07/31/18 10:47 07/31/18 10:47 07/31/18 10:47 Oxygen Delivery Method Room Air Weight: 235 lb 0.204 oz Body Mass Index (BMI) 34.7 Intake and Output for Last 24 Hours 07/29/18 07/30/18 07/31/18 23:59 23:59 23:59 Intake Total 758 / 758 3428 / 3428 2326 / 2326 Output Total 45 / 45 945 / 945 Balance 758 / 758 3383 / 3383 1381 / 1381 Microbiology Past 72 Hours 07/30/18 Unknown Gram Stain - Final Fluid - Other Laboratory Tests Past 24 Hrs 07/30/18 07/31/18 18:30 05:15 WBC 11.1 H RBC 3.38 L Hgb 11.0 L Hct 33.3 L MCV 98.5 H MCH 32.5 H MCHC 33.0 RDW 14.1 RDW Differential 48.9 H Plt Count 177 MPV 9.0 Vancomycin Trough 10.3 Assessment/Plan Hospitalist note: I am seeing this patient in conjunction with Lis Cabezas. I independently seen and examined the patient. Progress note above and laboratory reviewed and I agree with the above treatment plan. Patient seen and examined. Left knee pain significantly improved, patient has been ambulating without significant worsening of his left knee pain. He has been afebrile overnight, other vital signs are stable. - Physical Exam General: Alert, Oriented x3, Cooperative, No apparent distress. HEENT: Atraumatic, PERRLA, EOMI. Neck: Supple, No JVD, Negative Carotid Bruits, Trachea Midline, Thyroid Normal. Lungs: Clear to auscultation, Normal air movement, No rhonchi, No wheeze, No rales. Cardiovascular: Regular rate, Regular Rhythm, Normal S1, Normal S2, PMI Normal. Abdomen: Bowel Sounds Present, Soft, Non Tender, Non-Distended, No Hepato-splenomegaly. Extremities: No clubbing, No cyanosis, No edema Skin: No rashes, No breakdown Neurological: Neuro grossly intact Vital Signs are stable. Assessment and plan: #1 probable left knee septic arthritis: Status post arthrocentesis, synovectomy, irrigation/debridement, drain placed, postoperative day 1. Remained on IV vancomycin and Zosyn. He has been afebrile, white blood cell count started to go up, it is 11,000 today and it was 7700 yesterday.. Orthopedic surgery is on the case. Wound and blood cultures pending. Left knee drain pulled out today. Plan to continue same treatment. #2 rheumatoid arthritis: Stable, no acute issues. Patient was on Humira and Arava. Humira on hold at this time. #3 hypertension: Blood pressure stable, continue current medications. #4 other chronic medical problems: Stable, continue current medications as above. This note was generated with [employer] software. It may contain incorrect words, spelling, and punctuation that were not noted in checking the note before signing. Code Visit Inpatient E&M: 51481 Subs Hosp L2
--- NOTE | 2018-07-31 12:48 | PCM.DC.SUM ---
Discharge Date and Diagnosis Date of Admission: 07/29/18 Date of Discharge: 08/02/18 - Primary Discharge Diagnosis Active and Suspected Problems (Last Reviewed 02/03/18 @ 09:44 by Charlie Johnson MD) Septic arthritis of knee, left (Acute) - Secondary Discharge Diagnosis Chronic Problems (Last Reviewed 07/29/18 @ 18:48 by Lis Cabezas NP-[facility]) Bilateral carotid artery stenosis (Chronic) Atherosclerotic heart disease of [place] coronary artery without angina pectoris (Chronic) CABG X 5 on 05/09, Lt IT to LAD, SVG to RI, 1st Diag. of LAD, SVG to CFX, RCA; drug-eluting stent to RCA, mid RCA, and distal RCA in April 2016; Old myocardial infarction (Chronic) Ischemic cardiomyopathy (Chronic) Aortocoronary bypass status (Chronic) CABG X 5v on 05/09, Lt IT to LAD, SVG to RI, 1st Diag. 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 Huerta [facility] Course and Treatment medicine - comgmt Operations: None Summary of Care Provided: The patient is a 63 year old M with known past medical history for inflammatory arthritis as well as other comorbid conditions please see chart for further details about a week and a half ago had an injection in Dr. Blackwell's office was feeling worse about 4 days after the injection was seen by Dr. Zavala week after his initial injection Dr. Blackwell and noted he had some swelling but was not concerned about infection at that time seen my office on the following Wednesday have increased pain drained in the office it was quite cloudy and about 55 cc of cloudy fluid taken from his left knee at that point he was told to go home we would call him with the results his total cell count came back a little over 50,000 which is on the border the between inflammatory infectious etiology the decision was made to admit him wait for final culture results wash the knee out. Patient was washed out in the OR on Wednesday admitted with med management as well as IV antibiotics and started on subcu Lovenox for DVT prophylaxis. Drain was pulled postop day 1 cultures pending antibiotic on home discharge. Patient was ambulating weight-bear as tolerated the left leg much less pain in his left knee and without constitutional symptoms. Patient's aspirate from the clinic grew out coag negative staph, infectious disease consulted and recommended doxycycline as outpatient. Patient had no calf pain no fevers chills or other constitutional symptoms his knee was healing nicely and was discharged on with a prescription for doxycycline and will follow-up in the orthopedic office on Wednesday for a wound check. Patient please not receive Lovenox post operatively as well. And SCDs for DVT prophylaxis [] - Physical Exam General: Alert - Active range of motion ankle intact, nontender to palpation at the knee, drain pulled postop day 1, negative Homans, no calf pain compartment soft sensation grossly intact, Oriented x3, Cooperative HEENT: Atraumatic, PERRLA, EOMI, Normocephalic Neck: Supple, No JVD, Negative Carotid Bruits Lungs: Clear to auscultation, Normal air movement Cardiovascular: Regular rate, No murmurs Abdomen: Bowel Sounds Present, Soft, Non Tender Extremities: No edema, Capillary Refill Less than 3 Seconds Skin: No rashes, No breakdown Musculoskeletal: No Tenderness to Palpation of Joints or Extremities Neurological: Cranial nerves II-XII grossly intact Psych/Mental Status: Normal Affect, Appropriate Vital Signs Temp Pulse Resp BP Pulse Ox 98.6 F 64 18 133/57 H 98 07/31/18 10:47 07/31/18 10:47 07/31/18 10:47 07/31/18 10:47 07/31/18 10:47 Oxygen Delivery Method Room Air Weight: 235 lb 0.204 oz Body Mass Index (BMI) 34.7 Intake and Output for Last 24 Hours 07/29/18 07/30/18 07/31/18 23:59 23:59 23:59 Intake Total 758 / 758 3428 / 3428 2326 / 2326 Output Total 45 / 45 945 / 945 Balance 758 / 758 3383 / 3383 1381 / 1381 Microbiology Past 72 Hours 07/30/18 Unknown Gram Stain - Final Fluid - Other Laboratory Tests Past 24 Hrs 07/30/18 07/31/18 18:30 05:15 WBC 11.1 H RBC 3.38 L Hgb 11.0 L Hct 33.3 L MCV 98.5 H MCH 32.5 H MCHC 33.0 RDW 14.1 RDW Differential 48.9 H Plt Count 177 MPV 9.0 Vancomycin Trough 10.3 Discharge Diet: No Restrictions - follow up on in clinic, wbat left leg, keep dressing cdi, call with calf pain or other concerns, elevate/ankle pumps as tolerated, may get incisions wet if not draining (around 4 days) Discharge Activity: May Not Drive May shower in (days): 1 Ice area for (Minutes): 20 - Every hour while awake. Weight Bearing Status: Weight bearing as tolerated Keep extremity elevated above heart level: Operative Extremity Call your doctor if your incision/area has: Continuous Slow Oozing, Sudden Increased Bleeding, Increased Pain/ Swelling, Increased Redness, Foul Smelling Discharge Call your doctor if you observe: Fever of 101 or Higher, Coldness, Increased Pain, Numbness or Tingling, Change in Color, Calf discomfort Home Medications: Medications to take at Discharge Carvedilol [Coreg (Beta Marlene)] 6.25 mg PO BID 07/03/14 Leflunomide [Arava] 20 mg PO QHS 07/03/14 Lisinopril [Zestril] 5 mg PO QHS 07/03/14 Meloxicam [Mobic] 15 mg PO QHS 07/03/14 Omeprazole [Prilosec] 40 mg PO QHS 07/03/14 Adalimumab [Humira] 40 mg SQ Q14D 04/14/16 nitroglycerin 0.4 mg sublingual tablet 0.4 mg SUBLINGUAL Q5M PRN 05/12/17 oxycodone-acetaminophen 7.5 mg-325 mg tablet 1 tab PO Q8H PRN 02/03/18 ranolazine ER 1,000 mg tablet,extended release,12 hr 1,000 mg PO BID #180 tab 07/05/18 Clopidogrel Bisulfate [Plavix] 75 mg PO QHS 07/29/18 Fluoxetine HCl 40 mg PO QHS 07/29/18 Rosuvastatin Calcium [Crestor] 10 mg PO QHS 07/29/18 Doxycycline 100 mg PO BID #28 capsule 08/02/18 Following Prescrptions Were Given to Patient: Doxycycline 100 mg PO BID #28 capsule Primary Care Physician: Dominick Cueto III, MD [Primary Care Provider] - Please Follow Up With: Pattie Rodriguez, - [phone] Medical Necessity - Tobacco Use Smoking Status: Former smoker Meaningful Use Info Meaningful Use Diagnoses (Choose all that apply): None applicable
--- NOTE | 2018-07-31 12:51 | PCM.PN.ORT ---
Subjective: Patient feels great today. Seen at bedside with family present. No issues no complaints has been walking. Has been passing gas has not had a bowel movement yet no shortness of breath fever chills or other constitutional symptoms. Denies calf pain, knee feels much better and looks a lot more like his contralateral limb per patient. Objective: Patient denies pain in his left knee able to move it much better today. Denies shortness of breath fevers chills or other constitutional symptoms. Has been getting up out of chair to walk around. No calf pain or other constitutional symptoms or signs. Patient is ready to leave. - Physical Exam General: Alert - arom/prom ankle intact, nvi, no signs of infection, signs of infection no erythema, neg homans sign, compts soft, sgi, Oriented x3, Cooperative HEENT: Atraumatic, PERRLA, EOMI, Normocephalic Neck: Supple, No JVD, Negative Carotid Bruits Lungs: Clear to auscultation, Normal air movement Cardiovascular: Regular rate, No murmurs Abdomen: Bowel Sounds Present, Soft, Non Tender Extremities: No edema, Capillary Refill Less than 3 Seconds Skin: No rashes, No breakdown Musculoskeletal: No Tenderness to Palpation of Joints or Extremities Neurological: Cranial nerves II-XII grossly intact Psych/Mental Status: Normal Affect, Appropriate Vital Signs Temp Pulse Resp BP Pulse Ox 98.6 F 64 18 133/57 H 98 07/31/18 10:47 07/31/18 10:47 07/31/18 10:47 07/31/18 10:47 07/31/18 10:47 Oxygen Delivery Method Room Air Weight: 235 lb 0.204 oz Body Mass Index (BMI) 34.7 Intake and Output for Last 24 Hours 07/29/18 07/30/18 07/31/18 23:59 23:59 23:59 Intake Total 758 / 758 3428 / 3428 2326 / 2326 Output Total 45 / 45 945 / 945 Balance 758 / 758 3383 / 3383 1381 / 1381 Microbiology Past 72 Hours 07/30/18 Unknown Gram Stain - Final Fluid - Other Laboratory Tests Past 24 Hrs 07/30/18 07/31/18 18:30 05:15 WBC 11.1 H RBC 3.38 L Hgb 11.0 L Hct 33.3 L MCV 98.5 H MCH 32.5 H MCHC 33.0 RDW 14.1 RDW Differential 48.9 H Plt Count 177 MPV 9.0 Vancomycin Trough 10.3 Medical Necessity - Tobacco Use Smoking Status: Former smoker Assessment/Plan All Active Problems (Last Reviewed 02/03/18 @ 09:44 by Charlie Johnson MD) Septic arthritis of knee, left (Acute) Left knee possible versus probable septic arthritis pod1 s/p left knee salk, I&D Patient history complicated by the fact that he has rheumatoid arthritis he is on Humira and on Plavix had a steroid injection over a week ago increasing pain and swelling cell count of 50,000 still could be a inflammatory arthritis but most likely due to the look of the cloudy appearance of the synovial fluid in the office most likely infectious Drain pulled today about 15 cc in drain Vanco and Zosyn pending culture result 07/29 from office Call with increased pain numbness tingling further issues arise Admit with med consult Okay to continue Plavix We will start Lovenox postop The patient is a 63 year old M with known past medical history for inflammatory arthritis as well as other comorbid conditions please see chart for further details about a week and a half ago had an injection in Dr. Blackwell's office was feeling worse about 4 days after the injection was seen by Dr. Zavala week after his initial injection Dr. Blackwell and noted he had some swelling but was not concerned about infection at that time seen my office on the following Wednesday have increased pain drained in the office it was quite cloudy and about 55 cc of cloudy fluid taken from his left knee at that point he was told to go home we would call him with the results his total cell count came back a little over 50,000 which is on the border the between inflammatory infectious etiology the decision was made to admit him wait for final culture results wash the knee out. Patient was washed out in the OR on Wednesday admitted with med management as well as IV antibiotics and started on subcu Lovenox for DVT prophylaxis. Drain was pulled postop day 1 cultures pending antibiotic on home discharge. Patient was ambulating weight-bear as tolerated the left leg much less pain in his left knee and without constitutional symptoms. This note was generated with [employer] software. It may contain incorrect words, spelling, and punctuation that were not noted in checking the note before signing.
--- NOTE | 2018-07-31 12:54 | NURSING ---
Dr. Harvey here and pulled RAMA drain. Dressing changed by the doctor. Pt family visiting.
[2018-07-31 17:34] VITALS: BP 128/79; PULSE 61; RESP 20; TEMP 36.8; O2SAT 100
--- NOTE | 2018-07-31 17:57 | NURSING ---
Dr. Harvey wants this nurse of oil distributor nurse to call when Culture of Sensitivity comes back from 07/29/18 that was obtained in her office. If it still is no growth, pt will be discharged tonight.
[2018-07-31] MEDS: FLUoxetine 20 MG Capsule 40 MG PO (21:41)
[2018-07-31] MEDS: Lisinopril 5 MG Tablet PO (21:41)
[2018-07-31] MEDS: Pantoprazole Sodium 40 MG Tablet PO (21:41)
[2018-07-31] MEDS: Atorvastatin Calcium 20 MG Tablet PO (21:41)
[2018-07-31] MEDS: Clopidogrel Bisulfate 75 MG Tablet PO (21:42)
[2018-07-31 21:46] VITALS: BP 131/78; PULSE 61; RESP 16; TEMP 37; O2SAT 98
[2018-08-01 02:15] VITALS: BP 150/71; PULSE 60; RESP 16; TEMP 36.9; O2SAT 97
[2018-08-01] MEDS: Enoxaparin 40 MG/0.4 ML Syringe SC (05:19)
[2018-08-01 06:04] LABS: Hematocrit 33.1 % (40-54); Hemoglobin 11.2 g/dl (13.0-16.5); Mean Corp Hgb Conc 33.8 g/gl (32-36); Mean Corpuscular Hgb 33.4 pg (27.0-32.0); Mean Corpuscular Volume 98.8 fL (80-94); Mean Platelet Vol. 9.1 fl (6.2-12.0); Platelet Count 197 K/mm3 (150-450); RBC Distribution Width CV 14.4 % (11.6-14.6); RBC Distribution Width SD 50.2 fl (35.1-43.9); Red Blood Count 3.35 M/mm3 (4.6-6.2); White Blood Count 9.5 K/mm3 (4.4-11.0)
[2018-08-01 06:10] LABS: Scan Indicated on CBC? Y/N NO
[2018-08-01 09:05] VITALS: BP 147/69; PULSE 59; RESP 16; TEMP 36.8; O2SAT 97
[2018-08-01] MEDS: Carvedilol 6.25 MG Tablet PO ×2 (09:05→21:17)
[2018-08-01] MEDS: Ranolazine 500 MG Tablet 1000 MG PO ×2 (09:05→21:16)
--- NOTE | 2018-08-01 09:43 | PCM.PN.HOSP ---
Patient Problems: Active and Suspected Problems (Last Reviewed 02/03/18 @ 09:44 by Charlie Johnson MD) Septic arthritis of knee, left (Acute) Subjective: Follow up septic arthritis. Left knee felling better. Anxious to go home. Vitals/I&O's: Vital Signs Temp Pulse Resp BP Pulse Ox 36.8 C 59 L 16 147/69 H 97 08/01/18 09:05 08/01/18 09:05 08/01/18 09:05 08/01/18 09:05 08/01/18 09:05 Oxygen Delivery Method Room Air Weight: 106.6 kg Body Mass Index (BMI) 34.7 Intake and Output for Last 24 Hours 07/30/18 07/31/18 08/01/18 23:59 23:59 23:59 Intake Total 3428 / 3428 3022 / 3022 2426 / 2426 Output Total 45 / 45 1245 / 1245 Balance 3383 / 3383 1777 / 1777 2426 / 2426 General: Alert, No apparent distress HEENT: Atraumatic, Normocephalic Oral: Moist Mucosa, No Gingival or Mucosal Lesions/ Ulcerations Lungs: Clear to auscultation, Normal air movement, No rhonchi, No wheeze Cardiovascular: Regular rate, Regular Rhythm, Normal S1, Normal S2, No murmurs Abdomen: Bowel Sounds Present, Soft, Non Tender, Non-Distended, No Hepato-splenomegaly Extremities: - - left knee wrapped--did not remove. Musculoskeletal: No Tenderness to Palpation of Joints or Extremities, No Muscle Wasting Psych/Mental Status: Normal Affect, Appropriate Microbiology Past 72 Hours 07/30/18 Unknown Fluid - Other Gram Stain - Final 07/30/18 Unknown Fluid - Other Body Fluid Culture - Preliminary No growth-Final to follow Laboratory Results 08/01/18 05:08: WBC 9.5, RBC 3.35 L, Hgb 11.2 L, Hct 33.1 L, MCV 98.8 H, MCH 33.4 H, MCHC 33.8, RDW 14.4, RDW Differential 50.2 H, Plt Count 197, MPV 9.1 Current Medications Albuterol Sulfate (Ventolin Aerosols) 2.5 mg INHALATION Q2H PRN PRN PRN Reason: dyspnea, wheezing Atorvastatin Calcium (Lipitor) 20 mg PO QHS [facility] Last Admin: 07/31/18 21:41 Dose: 20 mg Carvedilol (Coreg) 6.25 mg PO BID [facility] Last Admin: 08/01/18 09:05 Dose: 6.25 mg [facility] Last Admin: 07/31/18 21:42 Dose: 75 mg Enoxaparin Sodium (Lovenox) 40 mg SC DAILY@0600 [facility] Last Admin: 08/01/18 05:19 Dose: 40 mg [facility]zac) [facility] Last Admin: 07/31/18 21:41 Dose: 40 mg Hydralazine HCl (Apresoline Iv) 10 mg IV Q4H PRN PRN PRN Reason: SBP > 160 Hydromorphone HCl (Dilaudid Inj) 1 - 2 mg IV Q3H PRN PRN PRN Reason: SEVERE PAIN (6-12/15) Sodium Chloride () 1,000 mls @ 80 mls/hr IV .[id number] [facility] Last Admin: 07/31/18 17:44 Dose: 80 mls/hr Vancomycin IV Pharmacy to Dose (1 ea/ Sodium Chloride) 500 mls @ 250 mls/hr IV PRN PRN; Protocol PRN Reason: Rx to Dose Piperacillin Sod/Tazobactam (Sod 3.375 gm/ Sodium Chloride) 50 mls @ 12.5 mls/hr IV Q8 [facility] Last Admin: 08/01/18 05:19 Dose: 12.5 mls/hr Vancomycin HCl 1,750 mg/ (Sodium Chloride) 535 mls @ 250 mls/hr IV Q8H [facility] Last Admin: 08/01/18 02:17 Dose: 250 mls/hr [facility]) [facility] Last Admin: 07/31/18 21:41 Dose: 5 mg Nitroglycerin (Nitrostat) 0.4 mg SUBLINGUAL Q5M PRN PRN Reason: ANGINA Oxycodone HCl (Oxyir) 5 mg PO Q6H PRN PRN Reason: BREATH THROUGH PAIN Last Admin: 07/31/18 17:42 Dose: 5 mg Pantoprazole S[facility]) [facility] Last Admin: 07/31/18 21:41 Dose: 40 mg Ranolazine (Ranexa) 1,000 mg PO BID [facility] Last Admin: 08/01/18 09:05 Dose: 1,000 mg Sodium Chloride () 5 - 15 ml IV UD PRN PRN Reason: SALINE FLUSH Zolpidem Tartrate (Ambien (Generic)) 5 mg PO QHS PRN PRN Reason: INSOMNIA Medical Necessity - Tobacco Use Smoking Status: Former smoker Assessment/Plan All Active Problems (Last Reviewed 02/03/18 @ 09:44 by Charlie Johnson MD) Septic arthritis of knee, left (Acute) 1. Left septic knee REVIEW NURSE on cx from 07/29 s/p synovectomy and I&D on 07/30 Continue CINDY wilkinson zosyn consult ID for long-term recommendations (to see 08/02) 2. Rheumatoid arthritis on Humira, which makes him more susceptible to infections. Would hold next dose(s) until completed antibiotics follow up with Rheumatology as outpt. 3. CAD stable s/p CABG continue carvedilol, clopidogrel, rosuvastatin follow up with Dr. Johnson as outpt 4. VTE proph: LMWH. Code Visit Inpatient E&M: 35805 Subs Hosp L2
--- NOTE | 2018-08-01 09:53 | PN_ITS ---
Patient Problems: Active and Suspected Problems (Last Reviewed 02/03/18 @ 09:44 by Charlie Johnson MD) Septic arthritis of knee, left (Acute) Subjective: Follow up septic arthritis. Left knee felling better. Anxious to go home. Vitals/I&O's: Vital Signs Temp Pulse Resp BP Pulse Ox 36.8 C 59 L 16 147/69 H 97 08/01/18 09:05 08/01/18 09:05 08/01/18 09:05 08/01/18 09:05 08/01/18 09:05 Oxygen Delivery Method Room Air Weight: 106.6 kg Body Mass Index (BMI) 34.7 Intake and Output for Last 24 Hours 07/30/18 07/31/18 08/01/18 23:59 23:59 23:59 Intake Total 3428 / 3428 3022 / 3022 2426 / 2426 Output Total 45 / 45 1245 / 1245 Balance 3383 / 3383 1777 / 1777 2426 / 2426 General: Alert, No apparent distress HEENT: Atraumatic, Normocephalic Oral: Moist Mucosa, No Gingival or Mucosal Lesions/ Ulcerations Lungs: Clear to auscultation, Normal air movement, No rhonchi, No wheeze Cardiovascular: Regular rate, Regular Rhythm, Normal S1, Normal S2, No murmurs Abdomen: Bowel Sounds Present, Soft, Non Tender, Non-Distended, No Hepato- splenomegaly Extremities: - - left knee wrapped--did not remove. Musculoskeletal: No Tenderness to Palpation of Joints or Extremities, No Muscle Wasting Psych/Mental Status: Normal Affect, Appropriate Microbiology Past 72 Hours 07/30/18 Unknown Fluid - Other Gram Stain - Final 07/30/18 Unknown Fluid - Other Body Fluid Culture - Preliminary No growth-Final to follow Laboratory Results 08/01/18 05:08: WBC 9.5, RBC 3.35 L, Hgb 11.2 L, Hct 33.1 L, MCV 98.8 H, MCH 33.4 H, MCHC 33.8, RDW 14.4, RDW Differential 50.2 H, Plt Count 197, MPV 9.1 Current Medications Albuterol Sulfate (Ventolin Aerosols) 2.5 mg INHALATION Q2H PRN PRN PRN Reason: dyspnea, wheezing Atorvastatin Calcium (Lipitor) 20 mg PO QHS [facility] Last Admin: 07/31/18 21:41 Dose: 20 mg Carvedilol (Coreg) 6.25 mg PO BID [facility] Last Admin: 08/01/18 09:05 Dose: 6.25 mg [facility] Admin: 07/31/18 21:42 Dose: 75 mg Enoxaparin Sodium (Lovenox) 40 mg SC DAILY@0600 [facility] Last Admin: 08/01/18 05:19 Dose: 40 mg [facility] Last Admin: 07/31/18 21:41 Dose: 40 mg Hydralazine HCl (Apresoline Iv) 10 mg IV Q4H PRN PRN PRN Reason: SBP > 160 Hydromorphone HCl (Dilaudid Inj) 1 - 2 mg IV Q3H PRN PRN PRN Reason: SEVERE PAIN (6-12/15) Sodium Chloride () 1,000 mls @ 80 mls/hr IV .[id number] [facility] Last Admin: 07/31/18 17:44 Dose: 80 mls/hr Vancomycin IV Pharmacy to Dose (1 ea/ Sodium Chloride) 500 mls @ 250 mls/hr IV PRN PRN; Protocol PRN Reason: Rx to Dose Piperacillin Sod/Tazobactam (Sod 3.375 gm/ Sodium Chloride) 50 mls @ 12.5 mls/hr IV Q8 [facility] Last Admin: 08/01/18 05:19 Dose: 12.5 mls/hr Vancomycin HCl 1,750 mg/ (Sodium Chloride) 535 mls @ 250 mls/hr IV Q8H [facility] Last Admin: 08/01/18 02:17 Dose: 250 mls/hr [facility] Last Admin: 07/31/18 21:41 Dose: 5 mg Nitroglycerin (Nitrostat) 0.4 mg SUBLINGUAL Q5M PRN PRN Reason: ANGINA Oxycodone HCl (Oxyir) 5 mg PO Q6H PRN PRN Reason: BREATH THROUGH PAIN Last Admin: 07/31/18 17:42 Dose: 5 mg [facility]ole [facility] Last Admin: 07/31/18 21:41 Dose: 40 mg Ranolazine (Ranexa) 1,000 mg PO BID [facility] Last Admin: 08/01/18 09:05 Dose: 1,000 mg Sodium Chloride () 5 - 15 ml IV UD PRN PRN Reason: SALINE FLUSH Zolpidem Tartrate (Ambien (Generic)) 5 mg PO QHS PRN PRN Reason: INSOMNIA Medical Necessity - Tobacco Use Smoking Status: Former smoker Assessment/Plan All Active Problems (Last Reviewed 02/03/18 @ 09:44 by Charlie Johnson MD) Septic arthritis of knee, left (Acute) 1. 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 Rheumatoid arthritis * on Humira, which makes him more susceptible to infections. Would hold next dose(s) until completed antibiotics * follow up with Rheumatology as outpt. 3. CAD * stable * s/p CABG * continue carvedilol, clopidogrel, rosuvastatin * follow up with Dr. Johnson as outpt 4. VTE proph: LMWH. Code Visit Inpatient E&M: 99559 Subs Hosp L2
[2018-08-01 10:38] LABS: Creatinine, Serum 0.67 mg/dL (0.70-1.30); EST Glomerular Filtration Rate 128 mL/min (>60); Est Glom Filt Rate - Afr Amer 155 mL/min (>60); Estimated Creatinine Clearance 115.78 ml/min
[2018-08-01 10:48] LABS: Vancomycin, Trough Level 18.9 ug/mL (5.0-15.0)
--- NOTE | 2018-08-01 11:11 | PCM.RX.CS ---
Consult Pharmacy has been consulted to manage selected antiobiotic: Vancomycin Type of Consult: Follow-up Suspected Infection: Other Prior Doses of Antibiotics Received/Current Regimen: Currently receiving 1750mg IV q8h with the previous dose given at 02:17 before the trough was taken this morning at 10:15 Labs: Sodium 138 mmol/L (136-145) 07/30/18 07:34 Potassium 4.0 mmol/L (3.5-5.1) 07/30/18 07:34 Chloride 108 mmol/L (98-107) H 07/30/18 07:34 Carbon Dioxide 25.0 mmol/L (21.0-32.0) 07/30/18 07:34 Anion Gap 5 (5-15) 07/30/18 07:34 BUN 12 mg/dL (7-18) 07/30/18 07:34 Creatinine 0.67 mg/dL (0.70-1.30) L 08/01/18 10:15 Est GFR (MDRD) Af Amer 155 mL/min (>60) 08/01/18 10:15 Est GFR (MDRD) Non-Af 128 mL/min (>60) 08/01/18 10:15 BUN/Creatinine Ratio 22.1 RATIO (10-20) H 07/30/18 07:34 Glucose 126 mg/dL (74-106) H 07/30/18 07:34 Vancomycin Trough 18.9 ug/mL (5.0-15.0) H 08/01/18 10:15 Microbiology: Microbiology 07/30/18 Unknown Fluid - Other Gram Stain - Final 07/30/18 Unknown Fluid - Other Body Fluid Culture - Preliminary No growth-Final to follow Weight used for dosin kg Estimated Creatinine Clearance: 116 ml/min Goal Trough: 15-20 mcg/mL Pharmacy Plan for Drug Dosing: Trough obtained this morning (drawn 8 hours after the previous dose was given) came back as 18.9 mg/L. Recommend to keep the present dose and frequency as is since the trough is within the goal range. Since the trough did jump from 10.3 up to 18.9 after the dose was last increased and since the dose is being given every 8 hours, will obtain another trough in 48 hours to make sure the trough is not exceeding the goal range of 15-20. Pharmacy Service will continue to monitor and adjust dosing as required. Follow-Up Labs: Trough Vancomycin Labs to be done on [date and time ordered]: 08/03/18 10:30
[2018-08-01 14:15] VITALS: BP 141/84; PULSE 53; RESP 14; TEMP 36.9; O2SAT 98
[2018-08-01] MEDS: 0.9% Normal Saline 1,000 ML 80 ML IV (16:19)
[2018-08-01 20:02] VITALS: BP 149/70; PULSE 61; RESP 17; TEMP 35.9; O2SAT 95
[2018-08-01] MEDS: Lisinopril 5 MG Tablet PO (21:16)
[2018-08-01] MEDS: Pantoprazole Sodium 40 MG Tablet PO (21:17)
[2018-08-01] MEDS: FLUoxetine 20 MG Capsule 40 MG PO (21:17)
[2018-08-01] MEDS: Atorvastatin Calcium 20 MG Tablet PO (21:17)
[2018-08-01] MEDS: Clopidogrel Bisulfate 75 MG Tablet PO (21:17)
[2018-08-02 03:03] VITALS: BP 105/41; PULSE 60; RESP 17; TEMP 36.6; O2SAT 95
[2018-08-02] MEDS: Enoxaparin 40 MG/0.4 ML Syringe SC (05:31)
[2018-08-02 06:37] LABS: Anion Gap 9 (5-15); BUN 7 mg/dL (7-18); BUN/Creat Ratio 11.1 RATIO (10-20); Calcium,Total 8.6 mg/dL (8.5-10.1); Chloride 109 mmol/L (98-107); Creatinine, Serum 0.63 mg/dL (0.70-1.30); EST Glomerular Filtration Rate 138 mL/min (>60); Est Glom Filt Rate - Afr Amer 167 mL/min (>60); Estimated Creatinine Clearance 123.13 ml/min; Glucose 113 mg/dL (74-106); Potassium 3.5 mmol/L (3.5-5.1); Sodium Level 146 mmol/L (136-145)
[2018-08-02 07:30] VITALS: BP 121/78; PULSE 63; RESP 14; TEMP 36.7; O2SAT 97
[2018-08-02] MEDS: Carvedilol 6.25 MG Tablet PO (09:22)
[2018-08-02] MEDS: Ranolazine 500 MG Tablet 1000 MG PO (09:22)
[2018-08-02] MEDS: Doxycycline 100 MG CAPSULE PO (09:59)
--- NOTE | 2018-08-02 10:20 | CASEMGMT ---
MARIELA MITTAL in to discuss discharge needs and outpatient therpay. Patient states he does not feel like he needs outpatient therapy. When he has had this in the past he did not have therapy, but Dr. Rodriguez gave him exercises to complete which he remembers. Patient states he has follow-up appointment on Wednesday08/05/18, MARIELA MITTAL instructed him to ask Dr. Rodriguez at [facility] if he will need therapy. Patient voiced understanding. Patient denied further needs at this time.
--- NOTE | 2018-08-02 10:59 | PCM.HP.ID ---
Problem List (1) Septic arthritis of knee, left Status: Acute Qualifiers: Septic arthritis organism: due to unspecified organism Qualified Code(s): M00.9 - Pyogenic arthritis, unspecified Reason for Consult: septic arthritis Consulted by: Dr. Rodriguez History of Present Illness: The patient is a 63 year old M with RA on humira who presented 07/29 with several days of progressive L knee pain, swelling, redness. Some chills. Had knee injection 07/22. No hardware in that joint. No drainage. Saw Dr. Rodriguez, aspiration done, sent to hospital. Started on vanc/zosyn, taken to OR 07/30 for I&D. Feeling much better, no fever. Zosyn has been stopped. Aspiration with MRSE. Full ROS performed and neg except as noted above. - Medical History Past Medical History (Chronic Problems): Chronic Problems (Last Reviewed 07/29/18 @ 18:48 by Lis Cabezas, MECHANICAL SYSTEMS DESIGN ENGINEER-C) Bilateral carotid artery stenosis (Chronic) Atherosclerotic heart disease of [place] coronary artery without angina pectoris (Chronic) CABG X 5 on 05/09, Lt IT to LAD, SVG to RI, 1st Diag. of LAD, SVG to CFX, RCA; drug-eluting stent to RCA, mid RCA, and distal RCA in April 2016; Old myocardial infarction (Chronic) Ischemic cardiomyopathy (Chronic) Aortocoronary bypass status (Chronic) CABG X 5v on 05/09, Lt IT to LAD, SVG to RI, 1st Diag. of LAD, SVG to CFX, RCA FPC use of drug (Chronic) Rheumatoid arthritis (Chronic) Coronary artery disease (Chronic) Carotid stenosis, right (Chronic) CVA (cerebral vascular accident) (Chronic) Hyperlipidemia (Chronic) HTN (hypertension) (Chronic) Status post angioplasty with stent (Chronic) PTCA of RCA, with placement of intracoronary stent X2; 01/15/08 PTCA/stent (EMILIA) X4 to RCA proximal, mid & distal portions; PTCA & stent to TAXUS EMILIA to RCA; 06/10/09 PTCA/stent of pre-existing stent in proximal to mid RCA; LHC, FFR & EMILIA to proximal RCA, as well as angioplasty to mid & distal RCA 04/28/[address] Huerta Allergies/Adverse Reactions: Allergies No Known Allergies Allergy (Verified 07/29/18 17:30) Home Medications: Ambulatory Orders Medication Instructions Recorded Carvedilol [Coreg (Beta Marlene)] 6.25 mg PO BID 07/03/14 Leflunomide [Arava] 20 mg PO QHS 07/03/14 Lisinopril [Zestril] 5 mg PO QHS 07/03/14 Meloxicam [Mobic] 15 mg PO QHS 07/03/14 Omeprazole [Prilosec] 40 mg PO QHS 07/03/14 Adalimumab [Humira] 40 mg SQ Q14D 04/14/16 nitroglycerin 0.4 mg sublingual 0.4 mg SUBLINGUAL Q5M PRN 05/12/17 tablet oxycodone-acetaminophen 7.5 mg-325 1 tab PO Q8H PRN 02/03/18 mg tablet ranolazine ER 1,000 mg 1,000 mg PO BID #180 tab 07/05/18 tablet,extended release,12 hr Clopidogrel Bisulfate [Plavix] 75 mg PO QHS 07/29/18 Fluoxetine HCl 40 mg PO QHS 07/29/18 Rosuvastatin Calcium [Crestor] 10 mg PO QHS 07/29/18 Doxycycline 100 mg PO BID #28 capsule 08/02/18 - Social History SMOKING STATUS:: Former smoker Vital Signs Temp Pulse Resp BP Pulse Ox 98.1 F 63 14 121/78 H 97 08/02/18 07:30 08/02/18 07:30 08/02/18 07:30 08/02/18 07:30 08/02/18 07:30 Oxygen Delivery Method Room Air Weight: 106.6 kg Body Mass Index (BMI) 34.7 Microbiology Past 72 Hours 07/30/18 Unknown Gram Stain - Final Fluid - Other Body Fluid Culture - Preliminary Coag Negative Staph Anaerobic Culture - Preliminary No growth in 48 hours. 07/29/18 18:15 Blood Culture - Preliminary Blood Culture (Wb) - Right Hand No growth in 48 hours. 07/29/18 18:10 Blood Culture - Preliminary Blood Culture (Wb) - Anticubital Left No growth in 48 hours. Laboratory Tests Past 24 Hrs 08/02/18 05:36 Sodium 146 H Potassium 3.5 Chloride 109 H Carbon Dioxide 28.0 Anion Gap 9 BUN 7 Creatinine 0.63 L Estim Creat Clear Calc 123.13 Est GFR (MDRD) Af Amer 167 Est GFR (MDRD) Non-Af 138 BUN/Creatinine Ratio 11.1 Glucose 113 H Calcium 8.6 - Other Studies Radiology: [] reviewed Other Studies: [] Route of nutrition/ use of supplements: [] Nutritional Intake: [] IV Site: [] Villeda Catheter: [] - Physical Exam General: Alert, Oriented x3, Cooperative, No apparent distress HEENT: Atraumatic, PERRLA, EOMI Neck: Supple, No Nodes Lungs: Clear to auscultation, Normal air movement Cardiovascular: Regular rate, Regular Rhythm Abdomen: Soft, Non Tender, Non-Distended Extremities: Edema - Mild L knee swelling and tenderness Skin: No rashes IV Site: Peripheral Neurological: Cranial nerves II-XII grossly intact - Assessment/Plan Antibiotics: [] Assessment/Plan: [] L knee MRSE septic arthritis - s/p surgical debridement 07/30/[address] Rodriguez. Has knee injection as probable source. Aspiration 07/29 with MRSE. Has been on vanc for 4-5 days now, ok for d/c home on po doxy for 2 weeks. I gave him my card and reviewed side effects. Will follow as needed, rx written, thank you.
--- NOTE | 2018-08-02 13:44 | PN_ITS ---
Subjective: No new complaints. Left knee is feeling better. Vitals/I&O's: Vital Signs Temp Pulse Resp BP Pulse Ox 36.7 C 63 14 121/78 H 97 08/02/18 07:30 08/02/18 07:30 08/02/18 07:30 08/02/18 07:30 08/02/18 07:30 Oxygen Delivery Method Room Air Weight: 106.6 kg Body Mass Index (BMI) 34.7 Intake and Output for Last 24 Hours 07/31/18 08/01/18 08/02/18 23:59 23:59 23:59 Intake Total 3022 / 3022 5788 / 5788 806 / 806 Output Total 1245 / 1245 Balance 1777 / 1777 5788 / 5788 806 / 806 General: Alert, No apparent distress HEENT: Atraumatic, Normocephalic Oral: Moist Mucosa, No Gingival or Mucosal Lesions/ Ulcerations Neck: No Nodes, Thyroid Normal Size and Texture Lungs: Clear to auscultation, Normal air movement, No rhonchi, No wheeze Cardiovascular: Regular rate, Regular Rhythm, Normal S1, Normal S2, No murmurs Abdomen: Bowel Sounds Present, Soft, Non Tender, Non-Distended Extremities: No edema, No Calf Tenderness Psych/Mental Status: Normal Affect, Appropriate Microbiology Past 72 Hours 07/30/18 Unknown Fluid - Other Gram Stain - Final 07/30/18 Unknown Fluid - Other Body Fluid Culture - Preliminary Coag Negative Staph 07/30/18 Unknown Fluid - Other Anaerobic Culture - Preliminary No growth in 48 hours. 07/29/18 18:15 Blood Culture (Wb) - Right Hand Blood Culture - Preliminary No growth in 48 hours. 07/29/18 18:10 Blood Culture (Wb) - Anticubital Left Blood Culture - Preliminary No growth in 48 hours. Laboratory Results 08/02/18 05:36: Sodium 146 H, Potassium 3.5, Chloride 109 H, Carbon Dioxide 28.0, Anion Gap 9, BUN 7, Creatinine 0.63 L, Estim Creat Clear Calc 123.13, Est GFR (MDRD) Af Amer 167, Est GFR (MDRD) Non-Af 138, BUN/Creatinine Ratio 11.1, Glucose 113 H, Calcium 8.6 Medical Necessity - Tobacco Use Smoking Status: Former smoker Assessment/Plan All Active Problems (Last Reviewed 02/03/18 @ 09:44 by Charlie Johnson MD) Septic arthritis of knee, left (Acute) 1. 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 Rheumatoid arthritis * on Humira, which makes him more susceptible to infections. Would hold next dose(s) until completed antibiotics * follow up with Rheumatology as outpt. 3. CAD * stable * s/p CABG * continue carvedilol, clopidogrel, rosuvastatin * follow up with Dr. Johnson as outpt 4. VTE proph: LMWH. Code Visit Inpatient E&M: 54188 Subs Hosp L2
--- NOTE | 2018-08-03 14:03 | CASEMGMT ---
RN DAXA DC PHONE CALL DC DATE: 07/31/18 DC Disposition: Home LACE/STRATA: 02/08 Intro role of CM to patient via phone. Pt states he is doing well and was very appreciative of the care @ [facility]. No questions re: dc instructions, follow up or prescriptions. No care improvement suggestions were given- pt states his care was excellent. Ling CRUZN RN ACM
== END 2018-08-02 10:45 | disposition home or self-care (01) | DRG 489 ==
LOC: ED 17:53 → MS3 21:27
PROVIDERS: Anesthesiology; Nurse Practitioner Family; Admitting Provider Orthopaedic Surgery; Emergency Provider Emergency Medicine; Family Provider Family Medicine; PCP Family Medicine; Referring Provider Orthopaedic Surgery
PROC: 0SBD4ZZ Excision of Left Knee Joint, Percutaneous Endoscopic Approach (ICD-10-PCS; CPT 29870; principal; 2018-07-30 07:45)
DX: M00.9 Pyogenic arthritis, unspecified (principal); M17.12 Unilateral primary osteoarthritis, left knee; I25.10 Atherosclerotic heart disease of native coronary artery without angina pectoris; I25.5 Ischemic cardiomyopathy; I10 Essential (primary) hypertension; M06.9 Rheumatoid arthritis, unspecified; I65.23 Occlusion and stenosis of bilateral carotid arteries; E78.5 Hyperlipidemia, unspecified; K21.9 Gastro-esophageal reflux disease without esophagitis; F32.9 Major depressive disorder, single episode, unspecified; F41.9 Anxiety disorder, unspecified; E66.9 Obesity, unspecified; Z68.34 Body mass index [BMI] 34.0-34.9, adult; Z79.02 Long term (current) use of antithrombotics/antiplatelets; Z79.899 Other long term (current) drug therapy; I25.2 Old myocardial infarction; Z86.73 Personal history of transient ischemic attack (TIA), and cerebral infarction without residual deficits; Z87.891 Personal history of nicotine dependence; Z95.1 Presence of aortocoronary bypass graft; Z95.5 Presence of coronary angioplasty implant and graft
CPT/HCPCS: 36415; 80048; 80202; 81374; 82565; 82945; 84157; 85025; 85027; 85652; 86038; 86140; 86200; 86431; 86618; 87040; 87070; 87075; 87077; 87186; 87205; 89050; 89051; 89060; 93005; 99284; J7030; J7040; J7050; A4216; J2405

== ENCOUNTER → 2018-08-11 10:45 | Outpatient (CLI) | payer OTHER, MEDICARE, SELFPAY ==
[2018-08-11 09:36] VITALS: BMI 34.7
[2018-08-11 11:11] LABS: Pathologist Comment May follow
[2018-08-11 11:12] LABS: Synovial Fld Mononuclear WBC % 3.9 %; Synovial Fld Polynuclear WBC % 96.1 %
[2018-08-11 13:24] LABS: AUTO B FLUID DILUENT BKGD CT WBC <0.1 RBC <0.01 (W<.1,R<.01); CRYSTALS, BODY FLUID See PATH REV; Source- Body Fluid SYNOVIAL
[2018-08-11 13:25] LABS: Appearance /Synovial Fluid Turbid (CLEAR); Color / Synovial Fluid Straw (Pale Yellow); Source / Synovial Fluid L KNEE; Viscosity / Synovial Fluid Sl. Viscous (HIGH)
[2018-08-11 13:26] LABS: Body Fluid QC Type(s) BF1Q.BF2Q
[2018-08-11 15:19] LABS: Monocyte /Synovial Fluid 3 %
[2018-08-11 15:20] LABS: Neutrophil 97 % (0-25)
[2018-08-12 14:18] LABS: Pathologist Review Reviewed
[2018-08-14 13:42] LABS: GLUCOSE, SYNOVIAL FLUID 19 mg/dL (.); PROTEIN, SYNOVIAL FLUID 4.9 g/dL (.)
== END ==
PROVIDERS: Physician Assistant; Family Provider Family Medicine; PCP Family Medicine; Visit Provider Orthopaedic Surgery
DX: M00.9 Pyogenic arthritis, unspecified (principal)
CPT/HCPCS: 82945; 84157; 87070; 87075; 87205; 89050; 89051; 89060

== ENCOUNTER 2018-08-11 10:58 | Inpatient (IN) | payer OTHER, MEDICARE, SELFPAY ==
[2018-08-11] VITALS (18 sets, daily range): BP systolic 127–175; BP diastolic 68–97; PULSE 67–79; RESP 16–18; TEMP 36.6–37.3; O2SAT 91–99; BMI 34.7; BMI 32.9
--- NOTE | 2018-08-11 11:13 | RAD_ITS ---
STUDY: X-RAY - LEFT KNEE REASON FOR EXAM: Male, 63 years old. History of prior infection. TECHNIQUE: AP and lateral view(s) of the knee. COMPARISON: Comparison is made with prior study dated July 10, 2014. FINDINGS: Normal visualized distal femur. Normal visualized proximal tibia and fibula. Normal proximal tibiofibular articulation. There is severe degenerative arthrosis of the medial femorotibial compartment with severe joint space narrowing. Normal lateral femorotibial compartment. There is mild degenerative arthrosis of the patellofemoral articulation. Moderate sized joint effusion. RAD/Knee 1 or 2 Views IMPRESSION: Degenerative arthrosis. This has progressed as compared to prior study. Moderate-sized joint effusion. Electronically Signed: Mateusz Emmanuel, at 12:52 EDT , Service support ,
--- NOTE | 2018-08-11 11:14 | ED.VISSUMM ---
- ER Visit Summary Date of Service: 08/11/18 Chief Complaint: Left knee pain and swelling History of Present Illness: The patient is a 63 M who presents with left knee pain and swelling that became worse again yesterday. Patient describes his pain as aching. Patient states the pain is worse with prolonged ambulation and improves with Percocet. Patient denies any paresthesias or weakness. Patient had an infection in his knee and had a knee arthroscopy 2 weeks ago. Patient is currently on antibiotics. Patient saw Dr. Rodriguez in the office today. Patient states she aspirated the knee and cherelle off some yellow fluid. Patient states his knee feels warm. Patient denies any fevers or chills. Patient did have an episode of nausea vomiting last night. Physical Examination: Vital signs are stable. Patient is afebrile. Patient is in no acute distress. Musculoskeletal exam reveals tenderness and a mild effusion of the left knee. There is no pain with short arc range of motion. Range of motion was limited in extension of the last 30 degrees. There is no laxity. There is no erythema. There is mild warmth. There is some edema of the left lower extremity. There is no calf tenderness. Test Results: CBC showed a normal white blood cell count. Hemoglobin 12.2 and hematocrit was 36.5. Basic metabolic profile was normal. Sed rate was normal at 16. CRP was elevated at 146. X-rays of the knee were obtained. There is no effusion noted. There is no evidence of osteomyelitis. Emergency Department Course and Treatment: Case was discussed with Dr. Rodriguez. She recommended admitting the patient to the hospitalist service and she will washout his knee again today. Case was discussed with the hospitalist. He will admit the patient to his service. Disposition: Admit to hospital Impression: Septic arthritis left knee This note was generated with [employer] dictation software. It may contain incorrect words, spelling, and punctuation that were not noted in review of the chart prior to signing ED Disposition - Plan for ED Patient: Disposition: Acute Care Hospital [facility] Diagnosis: Septic arthritis of knee, left Referrals: Dominick Cueto III, MD [Primary Care Provider] -
--- NOTE | 2018-08-11 11:18 | ED.DCSUM_ITS ---
- ER Visit Summary Date of Service: 08/11/18 Chief Complaint: Left knee pain and swelling History of Present Illness: The patient is a 63 M who presents with left knee pain and swelling that became worse again yesterday. Patient describes his pain as aching. Patient states the pain is worse with prolonged ambulation and improves with Percocet. Patient denies any paresthesias or weakness. Patient had an infection in his knee and had a knee arthroscopy 2 weeks ago. Patient is currently on antibiotics. Patient saw Dr. Rodriguez in the office today. Patient states she aspirated the knee and cherelle off some yellow fluid. Patient states his knee feels warm. Patient denies any fevers or chills. Patient did have an episode of nausea vomiting last night. Physical Examination: Vital signs are stable. Patient is afebrile. Patient is in no acute distress. Musculoskeletal exam reveals tenderness and a mild effusion of the left knee. There is no pain with short arc range of motion. Range of motion was limited in extension of the last 30 degrees. There is no laxity. There is no erythema. There is mild warmth. There is some edema of the left lower extremity. There is no calf tenderness. Test Results: CBC showed a normal white blood cell count. Hemoglobin 12.2 and hematocrit was 36.5. Basic metabolic profile was normal. Sed rate was normal at 16. CRP was elevated at 146. X-rays of the knee were obtained. There is no effusion noted. There is no evidence of osteomyelitis. Emergency Department Course and Treatment: Case was discussed with Dr. Rodriguez. She recommended admitting the patient to the hospitalist service and she will washout his knee again today. Case was discussed with the hospitalist. He will admit the patient to his service. Disposition: Admit to hospital Impression: Septic arthritis left knee This note was generated with [employer] dictation software. It may contain incorrect words, spelling, and punctuation that were not noted in review of the chart prior to signing ED Disposition - Plan for ED Patient: Disposition: Acute Care Hospital [facility] Diagnosis: Septic arthritis of knee, left Referrals: Dominick Cueto III, MD [Primary Care Provider] -
[2018-08-11 11:34] LABS: Erythrocyte Sedimentation Rate 16 mm/hr (0-20)
[2018-08-11 11:36] LABS: Absolute Lymphocyte Count 2.39 X10^3/ul (0.83-4.51); Absolute Neutrophil Count 5.5 X10^3/uL (2.0-7.7); Basophil# 0.02 X10^3/uL; Basophil% 0.2 % (0-1); Eosinophil# 0.05 X10^3/uL; Eosinophils% 0.5 % (0-5); Hematocrit 36.5 % (40-54); Hemoglobin 12.2 g/dl (13.0-16.5); Lymphocyte # 2.39 X10^3/ul (4.0); Mean Corp Hgb Conc 33.4 g/gl (32-36); Mean Corpuscular Hgb 32.8 pg (27.0-32.0); Mean Corpuscular Volume 98.1 fL (80-94); Mean Platelet Vol. 8.3 fl (6.2-12.0); Monocyte% 16.8 % (0-10); Neutrophil # 5.46 X10^3/uL (2.7-7.7); Neutrophil % 57.2 % (47-70); Platelet Count 364 K/mm3 (150-450); RBC Distribution Width CV 13.5 % (11.6-14.6); RBC Distribution Width SD 46.6 fl (35.1-43.9); Red Blood Count 3.72 M/mm3 (4.6-6.2); White Blood Count 9.6 K/mm3 (4.4-11.0)
[2018-08-11 11:38] LABS: Differential Indicated SCAN CRITERIA MET; POSITIVE COUNT NO; POSITIVE DIFFERENTIAL YES; POSITIVE MORPHOLOGY NO
[2018-08-11 11:40] LABS: Anion Gap 8 (5-15); BUN 13 mg/dL (7-18); BUN/Creat Ratio 18.5 RATIO (10-20); Calcium,Total 9.2 mg/dL (8.5-10.1); Chloride 105 mmol/L (98-107); EST Glomerular Filtration Rate 122 mL/min (>60); Est Glom Filt Rate - Afr Amer 147 mL/min (>60); Estimated Creatinine Clearance 110.82 ml/min; Glucose 76 mg/dL (74-106); Potassium 3.9 mmol/L (3.5-5.1); Sodium Level 140 mmol/L (136-145)
[2018-08-11 12:26] LABS: Platelet Estimate ADEQUATE (ADEQ); Red Cell Morphology NORM C+C NORMAL (NORM C&C)
--- NOTE | 2018-08-11 12:27 | NURSING ---
DR ELA BROWNING
--- NOTE | 2018-08-11 12:35 | PCM.HP.STD ---
Problem List (1) Septic arthritis of knee, left Status: Acute Qualifiers: Septic arthritis organism: due to unspecified organism Qualified Code(s): M00.9 - Pyogenic arthritis, unspecified (2) Bilateral carotid artery stenosis Status: Chronic (3) Atherosclerotic heart disease of [place] coronary artery without angina pectoris Status: Chronic Qualifiers: Comment: CABG X 5 on 05/09, Lt IT to LAD, SVG to RI, 1st Diag. of LAD, SVG to CFX, RCA; drug-eluting stent to RCA, mid RCA, and distal RCA in April 2016; (4) Old myocardial infarction Status: Chronic (5) Ischemic cardiomyopathy Status: Chronic (6) Aortocoronary bypass status Status: Chronic Comment: CABG X 5v on 05/09, Lt IT to LAD, SVG to RI, 1st Diag. of LAD, SVG to CFX, RCA (7) [facility] use of drug Status: Chronic (8) Rheumatoid arthritis Status: Chronic (9) Coronary artery disease Status: Chronic (10) Carotid stenosis, right Status: Chronic (11) CVA (cerebral vascular accident) Status: Chronic (12) Hyperlipidemia Status: Chronic Qualifiers: (13) HTN (hypertension) Status: Chronic Qualifiers: (14) Status post angioplasty with stent Status: Chronic Comment: PTCA of RCA, with placement of intracoronary stent X2; 01/15/08 PTCA/stent (EMILIA) X4 to RCA proximal, mid & distal portions; PTCA & stent to TAXUS EMILIA to RCA; 06/10/09 PTCA/stent of pre-existing stent in proximal to mid RCA; LHC, FFR & EMILIA to proximal RCA, as well as angioplasty to mid & distal RCA 04/28/[address] Huerta History of Present Illness Date of Admission: 08/11/18 Chief Complaint: Left knee swelling and pain The patient is a 63 year old M with past medical history is never rheumatoid arthritis who underwent left knee cortisone injection by Dr. Clinton which was later complicated by septic knee. Patient underwent arthrocentesis, synovectomy, irrigation and debridement on 07/30/[address] Rodriguez. Was discharged home on doxycycline. 3 days prior to his admission patient noticed recurrence of the swelling warmth and restricted movement involving the left knee. Patient was seen and evaluated by Dr. Rodriguez; recurrent septic knee was diagnosed sent to the ED and subsequently admitted for further inpatient management. Patient had joint aspiration performed in the office prior to being sent to the ED. Past Medical History Past Medical History (Chronic Problems): Chronic Problems (Last Reviewed 08/11/18 @ 12:54 by Prasanth Del Angel MD) Bilateral carotid artery stenosis (Chronic) Atherosclerotic heart disease of [place] coronary artery without angina pectoris (Chronic) CABG X 5 on 05/09, Lt IT to LAD, SVG to RI, 1st Diag. of LAD, SVG to CFX, RCA; drug-eluting stent to RCA, mid RCA, and distal RCA in April 2016; Old myocardial infarction (Chronic) Ischemic cardiomyopathy (Chronic) Aortocoronary bypass status (Chronic) CABG X 5v on 05/09, Lt IT to LAD, SVG to RI, 1st Diag. 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 Huerta Medical History: Medical History (Last Reviewed 08/11/18 @ 12:54 by Prasanth Del Angel MD) Bilateral carotid artery stenosis (Chronic) I65.23 Atherosclerotic heart disease of [place] coronary artery without angina pectoris (Chronic) I25.10 CABG X 5 on 05/09, Lt IT to LAD, SVG to RI, 1st Diag. of LAD, SVG to CFX, RCA; drug-eluting stent to RCA, mid RCA, and distal RCA in April 2016; Old myocardial infarction (Chronic) I25.2 Ischemic cardiomyopathy (Chronic) I25.5 [facility] use of drug (Chronic) Z79.899 Rheumatoid arthritis (Chronic) M06.9 Coronary artery disease (Chronic) I25.10 Carotid stenosis, right (Chronic) I65.21 CVA (cerebral vascular accident) (Chronic) I63.9 Hyperlipidemia (Chronic) E78.5 HTN (hypertension) (Chronic) I10 Allergies No Known Allergies Allergy (Verified 08/11/18 11:02) Home Medications: Ambulatory Orders Medication Instructions Recorded Carvedilol [Coreg (Beta Marlene)] 6.25 mg PO BID 07/03/14 Leflunomide [Arava] 20 mg PO QHS 07/03/14 Lisinopril [Zestril] 5 mg PO QHS 07/03/14 Meloxicam [Mobic] 15 mg PO QHS 07/03/14 Omeprazole [Prilosec] 40 mg PO QHS 07/03/14 nitroglycerin 0.4 mg sublingual 0.4 mg SUBLINGUAL Q5M PRN 05/12/17 tablet oxycodone-acetaminophen 7.5 mg-325 1 tab PO Q8H PRN 02/03/18 mg tablet ranolazine ER 1,000 mg 1,000 mg PO BID #180 tab 07/05/18 tablet,extended release,12 hr Clopidogrel Bisulfate [Plavix] 75 mg PO QHS 07/29/18 Fluoxetine HCl 40 mg PO QHS 07/29/18 rosuvastatin 10 mg tablet 10 mg PO QHS #90 tab 08/08/18 Surgical History: Surgical History (Last Reviewed 08/11/18 @ 12:54 by Prasanth Del Angel MD) Aortocoronary bypass status (Chronic) Z95.1 CABG X 5v on 05/09, Lt IT to LAD, SVG to RI, 1st Diag. of LAD, SVG to CFX, RCA Status post angioplasty with stent (Chronic) Z95.9 PTCA of RCA, with placement of intracoronary stent X2; 01/15/08 PTCA/stent (EMILIA) X4 to RCA proximal, mid & distal portions; PTCA & stent to TAXUS EMILIA to RCA; 06/10/09 PTCA/stent of pre-existing stent in proximal to mid RCA; LHC, FFR & EMILIA to proximal RCA, as well as angioplasty to mid & distal RCA 04/28/[address] Huerta Surgical History: - - CABG x5, bilateral knee scope, left shoulder surgery, cataracts. Psychiatric History: Depression Smoking Status: Never smoker - *Family History Maternal Family History: Family History (Last Reviewed 08/11/18 @ 12:54 by Prasanth Del Angel MD) Father CAD (coronary artery disease) Diabetes History Items: - - Rheumatoid arthritis. Paternal Family History: Family History (Last Reviewed 08/11/18 @ 12:54 by Prasanth Del Angel MD) Father CAD (coronary artery disease) Diabetes History Items: Diabetes, Heart Disease Review of Systems Constitutional: Denies: Anorexia, Chills, Fever, Night Sweats, Weight Change HEENT: Denies: Head Aches, Sinus Congestion, Sinus Drainage Cardiovascular: Denies: Chest Pain, Orthopnea, Palpitations, Paroxysmal Noc. Dyspnea Respiratory: Denies: Cough, Shortness of breath at rest, Shortness of breath upon exertion, Sputum production Gastrointestinal: Denies: Abdominal Pain, Hematemesis, Hematochezia, Nausea, Melena, Vomiting Genitourinary: Denies: Dysuria, Frequency, Hematuria, Urgency Musculoskeletal: Reports: Joint Pain, Joint swelling, Joint Tenderness Skin: Denies: Rash Neurological: Denies: Focal weakness, Numbness, Tingling Psychiatric: Denies: Homicidal Ideations, Suicidal Ideations Hematologic/ Lymphatic: Denies: Easy Bruising, Easy Bleeding VTE Information - Inpt Only VTE Present on Admission: No VTE Mechan Device Prophylaxis: None VTE Pharm Prophylaxis ordered?: Yes Patient Problems: Active and Suspected Problems (Last Reviewed 08/11/18 @ 12:54 by Prasanth Del Angel MD) Septic arthritis of knee, left (Acute) Objective: GENERAL: cooperative HEENT: Atraumatic; moist oral mucosa EYES; Anicteric, Normal Conjunctiva NECK; supple, normal thyroid, no distended JVD. RESPIRATORY: Diminished to auscultation bilaterally, CARDIOVASCULAR: Regular S1 S2, no audible murmurs GI: soft, non-tender, normoactive bowel sounds, : No Renal angle tenderness; EXTREMITIES: No edema, no clubbing, no cyanosis. MUSCULOSKELETAL: Left knee swelling with restricted movements as well as erythema and warmth NEURO: Awake; no lateralizing signs. SKIN: No Rash PSYCH; Normal affect - Physical Exam Vital Signs Temp Pulse Resp BP Pulse Ox 98.8 F 71 16 148/90 H 99 08/11/18 11:28 08/11/18 11:28 08/11/18 11:28 08/11/18 11:28 08/11/18 11:28 Oxygen Delivery Method Room Air Weight: 106.594 kg Body Mass Index (BMI) 34.7 Laboratory Tests Past 24 Hrs 08/11/18 08/11/18 11:20 11:20 WBC 9.6 RBC 3.72 L Hgb 12.2 L Hct 36.5 L MCV 98.1 H MCH 32.8 H MCHC 33.4 RDW 13.5 RDW Differential 46.6 H Plt Count 364 MPV 8.3 Immature Gran % (Auto) 0.300 Neut % (Auto) 57.2 Lymph % (Auto) 25.0 [place] % (Auto) 16.8 H Eos % (Auto) 0.5 Baso % (Auto) 0.2 Absolute Neuts (auto) 5.5 Absolute Lymphs (auto) 2.39 Total Counted Not Reportable Differential Comment Platelet Estimate ADEQUATE RBC Morphology NORM C+C ESR 16 Sodium 140 Potassium 3.9 Chloride 105 Carbon Dioxide 27.0 Anion Gap 8 BUN 13 Creatinine 0.70 Estim Creat Clear Calc 110.82 Est GFR (MDRD) Af Amer 147 Est GFR (MDRD) Non-Af 122 BUN/Creatinine Ratio 18.5 Glucose 76 Calcium 9.2 C-React Prot Ext Range 146.00 H Assessment/Plan All Active Problems (Last Reviewed 08/11/18 @ 12:54 by Prasanth Del Angel MD) Septic arthritis of knee, left (Acute) Patient is a 63-year-old gentleman admitted with left septic knee. 1. Left knee septic joint: Patient recently undergone cortisone injection on 07/21/[address] Clinton which was complicated by left knee septic joint. He underwent Arthrocentesis, synovectomy, irrigation and debridement 07/30/[address] Rodriguez. Then presented with recurrent infection admitted to regular nursing floor started on broad-spectrum antibiotic therapy with consultation placed to Dr. Jennifer Shaikh with infectious disease 2. Rheumatoid arthritis patient is on Humira again (which he has not had for over a month) as well as Arava. Both medications held 3. Coronary artery disease with previous CABG and subsequent angioplasty and stent placement patient is on recommended medications did continue 4. Hypertension-blood pressure controlled, home medications continued with dose adjustment as needed 5. Dyslipidemia-patient is on statin therapy, continued at home dose 6. History of CVA complicating patient's last angioplasty currently has no residual effects 7. Bilateral carotid artery disease moderate managed with medications 8. Depression patient is on SSRI 9. GERD 10. Obesity with BMI greater than 30 weight loss advised 11. DVT prophylaxis SC Lovenox Code Visit Inpatient E&M: 26233 Init Hosp L3
--- NOTE | 2018-08-11 13:28 | CASEMGMT ---
RN CM Assessment Introduced role of RN CM to patient and patient Cristina at bedside.? Patient is alert, oriented and able?to participate in RN CM Assessment. ?Care providers, pharmacy, and demographics verified. Presentation: Recent Admit with Lt Septic Knee, Lt knee pain and swelling became worse yesterday. Had a Knee Arthroscopy x2 weeks ago. Seen Dr Rodriguez today and had knee aspirated -cherelle off yellow fluid. Admit Dx: Septic Joint Re-Admit: Yes, Inpt 07/29-08/02/18 for Lt Septic Knee Barriers/Issues: None PCP: Dominick Cueto III Specialists: Ortho Surgeon- Dr Rodriguez, Rheum- Dr Wilburn, Pain- Dr Clinton Preferred Pharmacy: [facility] Insurance: [facility] ABC Live Rx Benefit:?Yes LNOK: Cristina Daley LW/HPOA: Yes both on file at [facility], HPOA- Cristina Daley Living Arrangements:? Lives with in a Bi Level Home, 2 steps to enter home. 13 steps to main fl, 2 steps to Bedroom, 2 steps to Kitchen. ADL?s: Has been ambulating with a Cane and now has had to use Crutches, Independent with ADL's Transportation: Patient drives, on DC DME: Cane, Crutches, Back Brace. [employer] Preference if needed. HHC: None, [facility] HH Preference if needed. SNF: None Goal: Home, does not think will need anything, reports a walker may be good for patient balance/gait. DC PLAN: Home with possible HH IV Abx and Walker. Maria Antonia Melissa RNCM
--- NOTE | 2018-08-11 13:35 | NURSING ---
meds given for high bp md notified
--- NOTE | 2018-08-11 14:01 | CASEMGMT ---
Patient has a Healthcare POA and Healthcare LW on file at [facility] in e-chart. SW printed documents and placed in patient's paper chart. Fabiana CAROLINA MSW
--- NOTE | 2018-08-11 14:46 | CASEMGMT ---
Patient has a Healthcare POA and Healthcare LW on file in e-chart. SW printed documents and placed them in his paper chart. Fabiana CAROLINA MSW
--- NOTE | 2018-08-11 15:28 | CPS ---
1520...PT NOT IN ROOM AT THIS TIME FOR EVALUATION
--- NOTE | 2018-08-11 15:30 | SYN_PTH ---
PATIENT: JOSE MUJICA LOC: [facility] U#:[id number] AGE/SX: 63/M ROOM: [facility] RE08/11/[address]: Dr. Ruben So MD : [id number] BED: 1 DIS: 08/16/2018 SPEC #: [id number] RECD: 08/12/18 10:03 STATUS: BENJAMIN CONNOR #: [id number] LEANA: 08/11/18 15:[address]: Pattie Rodirguez DEPT: SURGICAL PATHOLOGY RECD BY: Alonso Azar ENTERED: 08/12/18 14:03 SP TYPE: SYNOVIUM OT DR: MD Dr. Dominick Nugent III, MD Dr. Robert Leininger, MD Tissues: Synovial tissue of joint, NOS Procedures: Surgery Specimen Level IV HEADER OPERATION: Left knee arthroscopy PRE-OP DIAGNOSIS: Septic left knee TISSUE SUBMITTED: Left knee synovium MICROSCOPIC DIAGNOSIS Left knee synovium: Fragments of dense fibroconnective tissue, fibroadipose tissue and synovial tissue with fibrinous exudation, acute and chronic inflammation and granulation tissue reaction. RON:pauline 08/15/18 MICROSCOPIC DESCRIPTION Slides are reviewed. GROSS DESCRIPTION Received in fixative is one container labeled with the patient's name and designated left knee synovium. The specimen consists of three variable sized pieces of schuster-light yellow soft tissue that in aggregate measure 5 x 5 x 1.5 cm. No mass lesion is identified. Cabinet And Trim Installer sections are submitted in one cassette. / RON:pauline 08/12/18 TC:2 CPT: 58198
[2018-08-11] MEDS: Cefazolin 2 GM in 0.9% Normal Saline 100 ML IV (15:50)
[2018-08-11] MEDS: Vancomycin IV 1,000 MG/20 ML Vial 1000 MG OPERA.SITE (16:24)
--- NOTE | 2018-08-11 16:25 | CPS ---
7583 pt not in room ...unable to do evaluation
--- NOTE | 2018-08-11 16:55 | CON.PCM_ITS ---
Reason for Consult Date of Consultation: 08/11/18 History of Present Illness: The patient is a 63 year old M [] Past Medical History Past Medical History (Chronic Problems): Chronic Problems (Last Reviewed 08/11/18 @ 12:54 by Prasanth Del Angel MD) Bilateral carotid artery stenosis (Chronic) Atherosclerotic heart disease of [place] coronary artery without angina pectoris (Chronic) CABG X 5 on 05/09, Lt IT to LAD, SVG to RI, 1st Diag. of LAD, SVG to CFX, RCA; drug-eluting stent to RCA, mid RCA, and distal RCA in April 2016; Old myocardial infarction (Chronic) Ischemic cardiomyopathy (Chronic) Aortocoronary bypass status (Chronic) CABG X 5v on 05/09, Lt IT to LAD, SVG to RI, 1st Diag. 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 Huerta Medical History: Medical History (Last Reviewed 08/11/18 @ 12:54 by Prasanth Del Angel MD) Bilateral carotid artery stenosis (Chronic) I65.23 Atherosclerotic heart disease of [place] coronary artery without angina pectoris (Chronic) I25.10 CABG X 5 on 05/09, Lt IT to LAD, SVG to RI, 1st Diag. 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) Z79.899 Rheumatoid arthritis (Chronic) M06.9 Coronary artery disease (Chronic) I25.10 Carotid stenosis, right (Chronic) I65.21 CVA (cerebral vascular accident) (Chronic) I63.9 Hyperlipidemia (Chronic) E78.5 HTN (hypertension) (Chronic) I10 Allergies No Known Allergies Allergy (Verified 08/11/18 11:02) Home Medications: Ambulatory Orders Medication Instructions Recorded Carvedilol [Coreg (Beta Marlene)] 6.25 mg PO BID 07/03/14 Leflunomide [Arava] 20 mg PO QHS 07/03/14 Lisinopril [Zestril] 5 mg PO QHS 07/03/14 Meloxicam [Mobic] 15 mg PO QHS 07/03/14 Omeprazole [Prilosec] 40 mg PO QHS 07/03/14 nitroglycerin 0.4 mg sublingual 0.4 mg SUBLINGUAL Q5M PRN 05/12/17 tablet oxycodone-acetaminophen 7.5 mg-325 1 tab PO Q8H PRN 02/03/18 mg tablet ranolazine ER 1,000 mg 1,000 mg PO BID #180 tab 07/05/18 tablet,extended release,12 hr Clopidogrel Bisulfate [Plavix] 75 mg PO QHS 07/29/18 Fluoxetine HCl 40 mg PO QHS 07/29/18 rosuvastatin 10 mg tablet 10 mg PO QHS #90 tab 08/08/18 Surgical History: Surgical History (Last Reviewed 08/11/18 @ 12:54 by Prasanth Del Angel MD) Aortocoronary bypass status (Chronic) Z95.1 CABG X 5v on 05/09, Lt IT to LAD, SVG to RI, 1st Diag. of LAD, SVG to CFX, RCA Status post angioplasty with stent (Chronic) Z95.9 PTCA of RCA, with placement of intracoronary stent X2; 01/15/08 PTCA/stent (EMILIA) X4 to RCA proximal, mid & distal portions; PTCA & stent to TAXUS EMILIA to RCA; 06/10/09 PTCA/stent of pre-existing stent in proximal to mid RCA; LHC, FFR & EMILIA to proximal RCA, as well as angioplasty to mid & distal RCA 04/28/[address] Huerta Surgical History: - - CABG x5, bilateral knee scope, left shoulder surgery, cataracts. Psychiatric History: Depression Smoking Status: Former smoker - *Family History Maternal Family History: Family History (Last Reviewed 08/11/18 @ 12:54 by Prasanth Del Angel MD) Father CAD (coronary artery disease) Diabetes History Items: - - Rheumatoid arthritis. Paternal Family History: Family History (Last Reviewed 08/11/18 @ 12:54 by Prasanth Del Angel MD) Father CAD (coronary artery disease) Diabetes History Items: Diabetes, Heart Disease Patient Problems: Active and Suspected Problems (Last Reviewed 08/11/18 @ 12:54 by Prasanth Del Angel MD) Septic arthritis of knee, left (Acute) - Physical Exam Vital Signs Temp Pulse Resp BP Pulse Ox 97.8 F 73 16 127/68 H 97 08/11/18 14:16 08/11/18 14:16 08/11/18 14:16 08/11/18 14:17 08/11/18 14:16 Oxygen Delivery Method Room Air Weight: 222 lb 14.197 oz Body Mass Index (BMI) 32.9 Laboratory Tests Past 24 Hrs 08/11/18 08/11/18 11:20 11:20 WBC 9.6 RBC 3.72 L Hgb 12.2 L Hct 36.5 L MCV 98.1 H MCH 32.8 H MCHC 33.4 RDW 13.5 RDW Differential 46.6 H Plt Count 364 MPV 8.3 Immature Gran % (Auto) 0.300 Neut % (Auto) 57.2 Lymph % (Auto) 25.0 [place] % (Auto) 16.8 H Eos % (Auto) 0.5 Baso % (Auto) 0.2 Absolute Neuts (auto) 5.5 Absolute Lymphs (auto) 2.39 Total Counted Not Reportable Differential Comment Platelet Estimate ADEQUATE RBC Morphology NORM C+C ESR 16 Sodium 140 Potassium 3.9 Chloride 105 Carbon Dioxide 27.0 Anion Gap 8 BUN 13 Creatinine 0.70 Estim Creat Clear Calc 110.82 Est GFR (MDRD) Af Amer 147 Est GFR (MDRD) Non-Af 122 BUN/Creatinine Ratio 18.5 Glucose 76 Calcium 9.2 C-React Prot Ext Range 146.00 H Assessment/Plan All Active Problems (Last Reviewed 08/11/18 @ 12:54 by Prasanth Del Angel MD) Septic arthritis of knee, left (Acute)
--- NOTE | 2018-08-11 16:58 | PCM.RX.CS ---
Consult Pharmacy has been consulted to manage selected antiobiotic: Vancomycin Type of Consult: New start Suspected Infection: Other Prior Doses of Antibiotics Received/Current Regimen: None Labs: Sodium 140 mmol/L (136-145) 08/11/18 11:20 Potassium 3.9 mmol/L (3.5-5.1) 08/11/18 11:20 Chloride 105 mmol/L (98-107) 08/11/18 11:20 Carbon Dioxide 27.0 mmol/L (21.0-32.0) 08/11/18 11:20 Anion Gap 8 (5-15) 08/11/18 11:20 BUN 13 mg/dL (7-18) 08/11/18 11:20 Creatinine 0.70 mg/dL (0.70-1.30) 08/11/18 11:20 Est GFR (MDRD) Af Amer 147 mL/min (>60) 08/11/18 11:20 Est GFR (MDRD) Non-Af 122 mL/min (>60) 08/11/18 11:20 BUN/Creatinine Ratio 18.5 RATIO (10-20) 08/11/18 11:20 Glucose 76 mg/dL (74-106) 08/11/18 11:20 Weight used for dosin kg Estimated Creatinine Clearance: 129ml/min Goal Trough: 15-20 mcg/mL Pharmacy Plan for Drug Dosin63 year old male admitted with a septic joint. Pt is 69 inches and has a CrCl of 129ml/min. Goal Trough 15-20. When pt was last here he was started on 1250mg q8h and then increased to 1750mg q8h. Recommendation is to start the pt on Vancomycin 1500mg IV q8h and get a trough on 08/12/18 at 1530. Pharmacy Service will continue to monitor and adjust dosing as required. Follow-Up Labs: Trough Vancomycin - 08/12/18 @ 1530
--- NOTE | 2018-08-11 16:59 | OP.PCM_ITS ---
Report of Operation Date of Procedure: 08/11/18 Pre-Operative Diagnosis: left knee septic joint Post-Operative Diagnosis: same Surgery/Procedure Performed:: salk, open medial parapatella arthrotomy incision drainageirrigation and debridement Type of Anesthesia:: General Anesthesiologist: Tunde Mesa Specimen's removed: synovial fluid and synovial tissue Drains: deja drain Description of Procedure: Preop note Patient is a 63-year-old male who has known left septic joint irrigation and debridement in the past return to office today with increasing pain and fluid in the tapped cloudy 80,000 cell count taken to the OR urgently today. Operative note Patient seen and examined preoperative holding area. Left knee was marked. Patient brought to the operating placed supine the operating table. Sign, anesthesia, antibiotics were held until cultures were taken. Left knee was prepped and draped in usual sterile fashion with tourniquet on the upper thigh. With an elevated the leg tourniquet was raised her pressure to 50 torr. We then began with our diagnostic arthroscopy in order to ascertain the amount of damage to the subcu tissue and the amount of infection. He had extensive wheezing previous anterior lateral portal able to visualize that he had gross raza pus coming from his knee and clumps. We then created medial portal again both of these through her previous portals and started with our diagnostic and debridement arthroscopically. To the extent of the synovitis we then converted to an open. We then made a midline incision through the skin dissected down to the level of the peritenon is did admit medial para patella incision starting just about a centimeter proximal to the patella and going around to the medial joint line. We then were able to use a combination of rondure rasp and a burner to remove the extensive synovitis throughout the knee. We then irrigated the knee with copious muscle sterile saline we did place a Betadine sterile Betadine solution in the name and for a couple minutes her to call if any other further bacterium we then irrigated the again we then placed 1 g of vancomycin powder in the knee closed the knee with 0 Vicryl for open to the 0 Prolene for the patella and the and 2-0 Prolene for the skin subcutaneous and then katrina for the skin. Sterile dressings were applied tourniquet was deflated for total working time of 80 minutes. Patient tolerated procedure well no comp occasions transferred to recovery room in stable condition next Postoperative note Weight-bear as tolerated left knee next Remove drain tomorrow next ID consult Pawan Sesay next Call with increased pain numbness tingling further issues arise DVT prophylaxis Dragon disclaimer DVT prophylaxis This note was generated with [employer] dictation software. It may contain incorrect words, spelling, and punctuation that were not noted in checking the note before signing.
[2018-08-11] MEDS: BACITRACIN/POLYMYXIN B 15 GM Tube 1 APPLIC (17:04)
[2018-08-11] MEDS: Mupirocin Ointment 22gm Tube 1 APPLIC (17:08)
[2018-08-11] MEDS: Lactated Ringers 1,000 ML 100 ML IV (18:35)
[2018-08-11] MEDS: HYDROcodone Bitartrate/Apap 5/325 Tablet PO (19:44)
[2018-08-11 20:00] LABS: Body Fluid QC Type(s) BF3Q
[2018-08-11] MEDS: Morphine 4 MG/ML Syringe IV ×2 (20:31→23:31)
[2018-08-11 20:37] LABS: AUTO B FLUID DILUENT BKGD CT WBC <0.1 RBC <0.01 (W<.1,R<.01); Appearance /Synovial Fluid Hazy (CLEAR); Color / Synovial Fluid Yellow (Pale Yellow); RBC /Synovial Fluid 0.024 10^6/uL (0); Source / Synovial Fluid LEFT KNEE; Viscosity / Synovial Fluid Viscous (HIGH)
[2018-08-11 20:38] LABS: Monocyte /Synovial Fluid 4 %; Neutrophil 96 % (0-25); Synovial Fld Mononuclear WBC # 2.631 10^3/ul; Synovial Fld Mononuclear WBC % 3.6 %; Synovial Fld Polynuclear WBC % 96.4 %
[2018-08-11] MEDS: Carvedilol 6.25 MG Tablet PO (21:28)
[2018-08-11] MEDS: Atorvastatin Calcium 20 MG Tablet PO (21:28)
[2018-08-11] MEDS: Meloxicam 15 MG Tablet PO (21:28)
[2018-08-11] MEDS: Clopidogrel Bisulfate 75 MG Tablet PO (21:28)
[2018-08-11] MEDS: Lisinopril 5 MG Tablet PO (21:29)
[2018-08-11] MEDS: Pantoprazole Sodium 40 MG Tablet PO (21:29)
[2018-08-11] MEDS: Ranolazine 500 MG Tablet 1000 MG PO (21:29)
[2018-08-11] MEDS: FLUoxetine 20 MG Capsule 40 MG PO (21:29)
[2018-08-11] MEDS: MELATONIN 3 MG TABLET PO (21:29)
[2018-08-12] VITALS (8 sets, daily range): BP systolic 130–159; BP diastolic 69–88; PULSE 57–66; RESP 14–18; TEMP 36.5–36.9; O2SAT 96–97
[2018-08-12] MEDS: HYDROcodone Bitartrate/Apap 5/325 Tablet PO ×3 (01:44→16:20)
[2018-08-12] MEDS: Morphine 4 MG/ML Syringe IV ×5 (04:35→22:46)
[2018-08-12] MEDS: Lactated Ringers 1,000 ML 100 ML IV (04:38)
[2018-08-12 05:38] LABS: Absolute Neutrophil Count 5.7 X10^3/uL (2.0-7.7); Basophil# 0.01 X10^3/uL; Basophil% 0.1 % (0-1); Eosinophil# 0.01 X10^3/uL; Eosinophils% 0.1 % (0-5); Hematocrit 30.2 % (40-54); Lymphocyte % 18.6 % (19-41); Mean Corp Hgb Conc 33.1 g/gl (32-36); Mean Corpuscular Hgb 32.8 pg (27.0-32.0); Mean Platelet Vol. 8.5 fl (6.2-12.0); Monocyte# 1.23 X10^3/uL; Monocyte% 14.3 % (0-10); Neutrophil # 5.73 X10^3/uL (2.7-7.7); Neutrophil % 66.7 % (47-70); Platelet Count 289 K/mm3 (150-450); RBC Distribution Width CV 13.4 % (11.6-14.6); Red Blood Count 3.05 M/mm3 (4.6-6.2); White Blood Count 8.6 K/mm3 (4.4-11.0)
[2018-08-12 05:42] LABS: POSITIVE COUNT NO; POSITIVE DIFFERENTIAL NO; POSITIVE MORPHOLOGY NO
[2018-08-12 06:01] LABS: Anion Gap 9 (5-15); BUN 16 mg/dL (7-18); BUN/Creat Ratio 25.4 RATIO (10-20); Calcium,Total 8.1 mg/dL (8.5-10.1); Chloride 108 mmol/L (98-107); Creatinine, Serum 0.63 mg/dL (0.70-1.30); EST Glomerular Filtration Rate 138 mL/min (>60); Est Glom Filt Rate - Afr Amer 166 mL/min (>60); Estimated Creatinine Clearance 123.13 ml/min; Glucose 160 mg/dL (74-106); Magnesium 2.3 mg/dL (1.6-2.6); Sodium Level 141 mmol/L (136-145)
--- NOTE | 2018-08-12 09:35 | PN_ITS ---
Patient Problems: Active and Suspected Problems (Last Reviewed 08/11/18 @ 12:54 by Prasanth Del Angel MD) Septic arthritis of knee, left (Acute) Subjective: Patient is a 63-year-old gentleman admitted with left septic knee. 08/12/2018 patient underwent salk, open medial parapatella arthrotomy incision drainageirrigation and debridement. Patient seen complains of significant discomfort in the left knee. Objective: GENERAL: cooperative HEENT: Atraumatic; moist oral mucosa EYES; Anicteric, Normal Conjunctiva NECK; supple, normal thyroid, no distended JVD. RESPIRATORY: Diminished to auscultation bilaterally, CARDIOVASCULAR: Regular S1 S2, no audible murmurs GI: soft, non-tender, normoactive bowel sounds, : No Renal angle tenderness; EXTREMITIES: No edema, no clubbing, no cyanosis. MUSCULOSKELETAL: Left knee in a surgical dressing with RAMA drain in place NEURO: Awake; no lateralizing signs. SKIN: No Rash PSYCH; Normal affect Vitals/I&O's: Vital Signs Temp Pulse Resp BP Pulse Ox 98.0 F 59 L 18 132/71 H 97 08/12/18 07:12 08/12/18 07:12 08/12/18 07:12 08/12/18 07:12 08/12/18 07:35 Oxygen Delivery Method Room Air Weight: 104.6 kg Body Mass Index (BMI) 32.9 Intake and Output for Last 24 Hours 08/10/18 08/11/18 08/12/18 23:59 23:59 23:59 Intake Total 1911 / 1911 1196 / 1196 Output Total 425 / 425 Balance 1486 / 1486 1179 / 1179 Microbiology Past 72 Hours 08/11/18 17:28 Incision/Surgical Site Gram Stain - Preliminary Laboratory Results 08/11/18 11:20: WBC 9.6, RBC 3.72 L, Hgb 12.2 L, Hct 36.5 L, MCV 98.1 H, MCH 32.8 H, MCHC 33.4, RDW 13.5, RDW Differential 46.6 H, Plt Count 364, MPV 8.3, Immature Gran % (Auto) 0.300, Neut % (Auto) 57.2, Lymph % (Auto) 25.0, [place] % (Auto) 16.8 H, Eos % (Auto) 0.5, Baso % (Auto) 0.2, Absolute Neuts (auto) 5.5, Absolute Lymphs (auto) 2.39, Total Counted Not Reportable, Differential Comment , Platelet Estimate ADEQUATE, RBC Morphology NORM C+C, ESR 16 08/11/18 11:20: Sodium 140, Potassium 3.9, Chloride 105, Carbon Dioxide 27.0, Anion Gap 8, BUN 13, Creatinine 0.70, Estim Creat Clear Calc 110.82, Est GFR (MDRD) Af Amer 147, Est GFR (MDRD) Non-Af 122, BUN/Creatinine Ratio 18.5, Glucose 76, Calcium 9.2, C-React Prot Ext Range 146.00 H 08/11/18 17:28: Fluid Source Cancelled, Fluid Color Cancelled, Fluid Appearance Cancelled, Fluid WBC Cancelled, Fluid RBC Cancelled, Fluid Tot Cell Count Cancelled, Fld Polynuclear WBCs # Cancelled, Fld Polynuclear WBCs % Cancelled, Fluid Mononuclear WBCs Cancelled, Fld Mononuclear WBCs % Cancelled, Fluid Neutrophils Cancelled, Fluid Lymphocytes Cancelled, Fluid Monocytes Cancelled, Fluid Plasma Cells Cancelled, Fluid Macrophages Cancelled, Fld Mesothelial Cells Cancelled, Fluid Other Cells Cancelled, Fl Pathologist Comment Cancelled, Fluid Comment 2 Cancelled, Synovial Source LEFT KNEE, Synovial Color Yellow, Synovial Appearance Hazy, Synovial Viscosity Viscous, Synovial WBC 62.8000 H, Synovial RBC 0.024 H, Synovial Tot Cell Ct 73.2020 H, Synov Polynuclear WBCs 70.551, Synov Mononuclear WBCs 2.631, Synovial Neutrophils 96 H, Synovial Monocytes 4, Synovial Polynuclear % 96.4, Synovial Mononuclear % 3.6, Synovial Path Comment May follow 08/12/18 05:00: WBC 8.6, RBC 3.05 L, Hgb 10.0 L, Hct 30.2 L, MCV 99.0 H, MCH 32.8 H, MCHC 33.1, RDW 13.4, RDW Differential 47.0 H, Plt Count 289, MPV 8.5, Immature Gran % (Auto) 0.200, Neut % (Auto) 66.7, Lymph % (Auto) 18.6 L, [place] % (Auto) 14.3 H, Eos % (Auto) 0.1, Baso % (Auto) 0.1, Absolute Neuts (auto) 5.7, Absolute Lymphs (auto) 1.60, Total Counted Not Reportable 08/12/18 05:00: Sodium 141, Potassium 4.0, Chloride 108 H, Carbon Dioxide 24.0, Anion Gap 9, BUN 16, Creatinine 0.63 L, Estim Creat Clear Calc 123.13, Est GFR (MDRD) Af Amer 166, Est GFR (MDRD) Non-Af 138, BUN/Creatinine Ratio 25.4 H, Glucose 160 H, Calcium 8.1 L, Magnesium 2.3 Current Medications Acetaminophen (Tylenol) 650 mg PO Q6H PRN PRN PRN Reason: Mild Pain (1-3)/Temp > 100.7 F Hydrocodone Bitart/Acetaminophen ([place] 5mg-325mg) 2 tablet PO Q6H PRN PRN PRN Reason: Moderate Pain (4-6/10) Last Admin: 08/12/18 01:44 Dose: 2 tablet Al Hydroxide/Mg Hydroxide (Mylanta Ii) 30 ml PO Q6H PRN PRN PRN Reason: Gastric Burning Albuterol Sulfate (Ventolin Aerosols) 2.5 mg INHALATION Q2H PRN PRN PRN Reason: Shortness of Breath/Wheezing Atorvastatin Calcium (Lipitor) 20 mg PO QHS [facility] Last Admin: 08/11/18 21:28 Dose: 20 mg Carvedilol (Coreg) 6.25 mg PO BID [facility] Last Admin: 08/11/18 21:28 Dose: 6.25 mg Clopidogrel Bisulfate (Plavix) 75 mg PO QHS [facility] Last Admin: 08/11/18 21:28 Dose: 75 mg Enoxaparin Sodium (Lovenox) 40 mg SC DAILY@1000 [place]KA Fluoxetine HCl (Prozac) 40 mg PO QHS [facility] Last Admin: 08/11/18 21:29 Dose: 40 mg Guaifenesin (Robitussin) 20 ml PO Q4H PRN PRN PRN Reason: COUGH Ceftriaxone Sodium 2 gm/ (Sodium Chloride) 50 mls @ 100 mls/hr IV Q24 [facility] Lactated Ringer's () 1,000 mls @ 100 mls/hr IV .Q10H [facility] Last Admin: 08/12/18 04:38 Dose: 100 mls/hr Vancomycin HCl 1,500 mg/ (Sodium Chloride) 530 mls @ 250 mls/hr IV Q8H [facility] Last Admin: 08/12/18 07:53 Dose: 250 mls/hr Lisinopril (Zestril) 5 mg PO QHS [facility] Last Admin: 08/11/18 21:29 Dose: 5 mg Magnesium Hydroxide (Milk Of Magnesia) 30 ml PO DAILY PRN PRN PRN Reason: Constipation Melatonin (Melatonin) 3 mg PO QHS PRN PRN PRN Reason: INSOMNIA Last Admin: 08/11/18 21:29 Dose: 3 mg Meloxicam (Mobic) 15 mg PO QHS [facility] Last Admin: 08/11/18 21:28 Dose: 15 mg Morphine Sulfate () 4 mg IV Q3H PRN PRN PRN Reason: Severe pain (-12/15) Last Admin: 08/12/18 07:54 Dose: 4 mg Nitroglycerin (Nitrostat) 0.4 mg SUBLINGUAL Q5M PRN PRN Reason: CARDIAC/CHEST PAIN Ondansetron HCl (Zofran) 4 mg IV Q8H PRN PRN PRN Reason: NAUSEA/VOMITING Pantoprazole Sodium (Protonix) 40 mg PO QHS [facility] Last Admin: 08/11/18 21:29 Dose: 40 mg Promethazine HCl (Phenergan) 25 mg IM Q6H PRN PRN PRN Reason: Breakthrough nausea/vomiting Ranolazine (Ranexa) 1,000 mg PO BID [facility] Last Admin: 08/11/18 21:29 Dose: 1,000 mg Sodium Chloride () 5 - 15 ml IV UD PRN PRN Reason: SALINE FLUSH Medical Necessity - Tobacco Use Smoking Status: Former smoker Assessment/Plan All Active Problems (Last Reviewed 08/11/18 @ 12:54 by Prasanth Del Angel MD) Septic arthritis of knee, left (Acute) Patient is a 63-year-old gentleman admitted with left septic knee. 1. Left knee septic joint: Patient recently undergone cortisone injection on 07/21/[address] Clinton which was complicated by left knee septic joint. He underwent Arthrocentesis, synovectomy, irrigation and debridement 07/30/[address] Rodriguez. Then presented with recurrent infection admitted to regular nursing floor started on broad-spectrum antibiotic therapy with consultation placed to Dr. Jennifer Shaikh with infectious disease ~08/12/2018 patient underwent salk, open medial parapatella arthrotomy incision drainageirrigation and debridement. Cultures sent results pending. 2. Rheumatoid arthritis patient is on Humira again (which he has not had for over a month) as well as Arava. Both medications held 3. Coronary artery disease with previous CABG and subsequent angioplasty and stent placement patient is on recommended medications did continue 4. Hypertension-blood pressure controlled, home medications continued with dose adjustment as needed 5. Dyslipidemia-patient is on statin therapy, continued at home dose 6. History of CVA complicating patient's last angioplasty currently has no residual effects 7. Bilateral carotid artery disease moderate managed with medications 8. Depression patient is on SSRI 9. GERD 10. Obesity with BMI greater than 30 weight loss advised 11. DVT prophylaxis SC Lovenox Code Visit Inpatient E&M: 24534 Subs Hosp L3
[2018-08-12] MEDS: Ranolazine 500 MG Tablet 1000 MG PO ×2 (10:08→22:38)
[2018-08-12] MEDS: Carvedilol 6.25 MG Tablet PO ×2 (10:08→22:38)
[2018-08-12] MEDS: Enoxaparin 40 MG/0.4 ML Syringe SC (10:10)
--- NOTE | 2018-08-12 11:40 | PCM.PN.ORT ---
Patient Problems: Active and Suspected Problems (Last Reviewed 08/11/18 @ 12:54 by Prasanth Del Angel MD) Septic arthritis of knee, left (Acute) - Physical Exam General: Alert, Oriented x3, Cooperative HEENT: Atraumatic, PERRLA, EOMI, Normocephalic Neck: Supple, No JVD, Negative Carotid Bruits Lungs: Clear to auscultation, Normal air movement Cardiovascular: Regular rate, No murmurs Abdomen: Bowel Sounds Present, Soft, Non Tender Extremities: No edema, Capillary Refill Less than 3 Seconds Skin: No rashes, No breakdown Musculoskeletal: Tenderness - left knee Neurological: Cranial nerves II-XII grossly intact Psych/Mental Status: Normal Affect, Appropriate Vital Signs Temp Pulse Resp BP Pulse Ox 98.3 F 57 L 16 130/69 H 96 08/12/18 11:22 08/12/18 11:22 08/12/18 11:22 08/12/18 11:22 08/12/18 11:22 Oxygen Delivery Method Room Air Weight: 230 lb 9.656 oz Body Mass Index (BMI) 32.9 Intake and Output for Last 24 Hours 08/10/18 08/11/18 08/12/18 23:59 23:59 23:59 Intake Total 1911 / 1911 2944 / 2944 Output Total 425 / 425 1000 / 1000 Balance 1486 / 1486 1944 / 1944 Microbiology Past 72 Hours 08/11/18 17:28 Gram Stain - Final Incision/Surgical Site Laboratory Tests Past 24 Hrs 08/11/18 08/11/18 08/11/18 11:20 11:20 17:28 WBC RBC Hgb Hct MCV MCH MCHC RDW RDW Differential Plt Count MPV Immature Gran % (Auto) Neut % (Auto) Lymph % (Auto) [place] % (Auto) Eos % (Auto) Baso % (Auto) Absolute Neuts (auto) Absolute Lymphs (auto) Total Counted Not Reportable Differential Comment Platelet Estimate ADEQUATE RBC Morphology NORM C+C Sodium 140 Potassium 3.9 Chloride 105 Carbon Dioxide 27.0 Anion Gap 8 BUN 13 Creatinine 0.70 Estim Creat Clear Calc 110.82 Est GFR (MDRD) Af Amer 147 Est GFR (MDRD) Non-Af 122 BUN/Creatinine Ratio 18.5 Glucose 76 Calcium 9.2 Magnesium C-React Prot Ext Range 146.00 H Fluid Source Cancelled Fluid Color Cancelled Fluid Appearance Cancelled Fluid WBC Cancelled Fluid RBC Cancelled Fluid Tot Cell Count Cancelled Fld Polynuclear WBCs # Cancelled Fld Polynuclear WBCs % Cancelled Fluid Mononuclear WBCs Cancelled Fld Mononuclear WBCs % Cancelled Fluid Neutrophils Cancelled Fluid Lymphocytes Cancelled Fluid Monocytes Cancelled Fluid Plasma Cells Cancelled Fluid Macrophages Cancelled Fld Mesothelial Cells Cancelled Fluid Other Cells Cancelled Fl Pathologist Comment Cancelled Fluid Comment 2 Cancelled Synovial Source LEFT KNEE Synovial Color Yellow Synovial Appearance Hazy Synovial Viscosity Viscous Synovial WBC 62.8000 H Synovial RBC 0.024 H Synovial Tot Cell Ct 73.2020 H Synov Polynuclear WBCs 70.551 Synov Mononuclear WBCs 2.631 Synovial Neutrophils 96 H Synovial Monocytes 4 Synovial Polynuclear % 96.4 Synovial Mononuclear % 3.6 Synovial Path Comment July follow 08/12/18 08/12/18 05:00 05:00 WBC 8.6 RBC 3.05 L Hgb 10.0 L Hct 30.2 L MCV 99.0 H MCH 32.8 H MCHC 33.1 RDW 13.4 RDW Differential 47.0 H Plt Count 289 MPV 8.5 Immature Gran % (Auto) 0.200 Neut % (Auto) 66.7 Lymph % (Auto) 18.6 L [place] % (Auto) 14.3 H Eos % (Auto) 0.1 Baso % (Auto) 0.1 Absolute Neuts (auto) 5.7 Absolute Lymphs (auto) 1.60 Total Counted Not Reportable Differential Comment Platelet Estimate RBC Morphology Sodium 141 Potassium 4.0 Chloride 108 H Carbon Dioxide 24.0 Anion Gap 9 BUN 16 Creatinine 0.63 L Estim Creat Clear Calc 123.13 Est GFR (MDRD) Af Amer 166 Est GFR (MDRD) Non-Af 138 BUN/Creatinine Ratio 25.4 H Glucose 160 H Calcium 8.1 L Magnesium 2.3 C-React Prot Ext Range Fluid Source Fluid Color Fluid Appearance Fluid WBC Fluid RBC Fluid Tot Cell Count Fld Polynuclear WBCs # Fld Polynuclear WBCs % Fluid Mononuclear WBCs Fld Mononuclear WBCs % Fluid Neutrophils Fluid Lymphocytes Fluid Monocytes Fluid Plasma Cells Fluid Macrophages Fld Mesothelial Cells Fluid Other Cells Fl Pathologist Comment Fluid Comment 2 Synovial Source Synovial Color Synovial Appearance Synovial Viscosity Synovial WBC Synovial RBC Synovial Tot Cell Ct Synov Polynuclear WBCs Synov Mononuclear WBCs Synovial Neutrophils Synovial Monocytes Synovial Polynuclear % Synovial Mononuclear % Synovial Path Comment Medical Necessity - Tobacco Use Smoking Status: Former smoker Assessment/Plan All Active Problems (Last Reviewed 08/11/18 @ 12:54 by Prasanth Del Angel MD) Septic arthritis of knee, left (Acute) pod 1 s/p left open medial parapatella arthrotomy/synovectomy salk synovectomy antibiotics waiting on definitive antibiotics recs per ID wbat left LE vanc/cef per ID/hospitalist call with concerns
--- NOTE | 2018-08-12 13:42 | CON.PCM_ITS ---
Problem List (1) Septic arthritis of knee, left Status: Acute Qualifiers: Septic arthritis organism: due to unspecified organism Qualified Code(s): M00.9 - Pyogenic arthritis, unspecified Reason for Consult: septic arthritis Consulted by: Dr. Rodriguez History of Present Illness: The patient is a 63 year old M with RA on humira who was recently admitted with MRSE L knee septic arthritis. Taken to OR 07/[address] Rodriguez for I&D. On iv abx for several days, then d/c home on po doxy. Had been doing well until some swelling 08/08, then several days of progressive pain. Minimal drainage. No fever. Saw Dr. Rodriguez, sent to hospital, taken to OR 08/11 for I&D. Feeling better, on vanc/ceftriaxone. Full ROS performed and neg except as noted above. - Medical History Past Medical History (Chronic Problems): Chronic Problems (Last Reviewed 08/11/18 @ 12:54 by Prasanth Del Angel MD) Bilateral carotid artery stenosis (Chronic) Atherosclerotic heart disease of [place] coronary artery without angina pectoris (Chronic) CABG X 5 on 05/09, Lt IT to LAD, SVG to RI, 1st Diag. of LAD, SVG to CFX, RCA; drug-eluting stent to RCA, mid RCA, and distal RCA in April 2016; Old myocardial infarction (Chronic) Ischemic cardiomyopathy (Chronic) Aortocoronary bypass status (Chronic) CABG X 5v on 05/09, Lt IT to LAD, SVG to RI, 1st Diag. of LAD, SVG to CFX, RCA longterm use of drug (Chronic) Rheumatoid arthritis (Chronic) Coronary artery disease (Chronic) Carotid stenosis, right (Chronic) CVA (cerebral vascular accident) (Chronic) Hyperlipidemia (Chronic) HTN (hypertension) (Chronic) Status post angioplasty with stent (Chronic) PTCA of RCA, with placement of intracoronary stent X2; 01/15/08 PTCA/stent (EMILIA) X4 to RCA proximal, mid & distal portions; PTCA & stent to TAXUS EMILIA to RCA; 06/10/09 PTCA/stent of pre-existing stent in proximal to mid RCA; LHC, FFR & EMILIA to proximal RCA, as well as angioplasty to mid & distal RCA 04/28/[address] Huerta Allergies/Adverse Reactions: Allergies No Known Allergies Allergy (Verified 08/11/18 11:02) Home Medications: Ambulatory Orders Medication Instructions Recorded Carvedilol [Coreg (Beta Marlene)] 6.25 mg PO BID 07/03/14 Leflunomide [Arava] 20 mg PO QHS 07/03/14 Lisinopril [Zestril] 5 mg PO QHS 07/03/14 Meloxicam [Mobic] 15 mg PO QHS 07/03/14 Omeprazole [Prilosec] 40 mg PO QHS 07/03/14 nitroglycerin 0.4 mg sublingual 0.4 mg SUBLINGUAL Q5M PRN 05/12/17 tablet oxycodone-acetaminophen 7.5 mg-325 1 tab PO Q8H PRN 02/03/18 mg tablet ranolazine ER 1,000 mg 1,000 mg PO BID #180 tab 07/05/18 tablet,extended release,12 hr Clopidogrel Bisulfate [Plavix] 75 mg PO QHS 07/29/18 Fluoxetine HCl 40 mg PO QHS 07/29/18 rosuvastatin 10 mg tablet 10 mg PO QHS #90 tab 08/08/18 - Social History SMOKING STATUS:: Former smoker Vital Signs Temp Pulse Resp BP Pulse Ox 98.3 F 57 L 16 130/69 H 96 08/12/18 11:22 08/12/18 11:22 08/12/18 11:22 08/12/18 11:22 08/12/18 11:22 Oxygen Delivery Method Room Air Weight: 104.6 kg Body Mass Index (BMI) 32.9 Microbiology Past 72 Hours 08/11/18 17:28 Gram Stain - Final Incision/Surgical Site Laboratory Tests Past 24 Hrs 08/11/18 08/12/18 08/12/18 17:28 05:00 05:00 WBC 8.6 RBC 3.05 L Hgb 10.0 L Hct 30.2 L MCV 99.0 H MCH 32.8 H MCHC 33.1 RDW 13.4 RDW Differential 47.0 H Plt Count 289 MPV 8.5 Immature Gran % (Auto) 0.200 Neut % (Auto) 66.7 Lymph % (Auto) 18.6 L [place] % (Auto) 14.3 H Eos % (Auto) 0.1 Baso % (Auto) 0.1 Absolute Neuts (auto) 5.7 Absolute Lymphs (auto) 1.60 Total Counted Not Reportable Sodium 141 Potassium 4.0 Chloride 108 H Carbon Dioxide 24.0 Anion Gap 9 BUN 16 Creatinine 0.63 L Estim Creat Clear Calc 123.13 Est GFR (MDRD) Af Amer 166 Est GFR (MDRD) Non-Af 138 BUN/Creatinine Ratio 25.4 H Glucose 160 H Calcium 8.1 L Magnesium 2.3 Fluid Source Cancelled Fluid Color Cancelled Fluid Appearance Cancelled Fluid WBC Cancelled Fluid RBC Cancelled Fluid Tot Cell Count Cancelled Fld Polynuclear WBCs # Cancelled Fld Polynuclear WBCs % Cancelled Fluid Mononuclear WBCs Cancelled Fld Mononuclear WBCs % Cancelled Fluid Neutrophils Cancelled Fluid Lymphocytes Cancelled Fluid Monocytes Cancelled Fluid Plasma Cells Cancelled Fluid Macrophages Cancelled Fld Mesothelial Cells Cancelled Fluid Other Cells Cancelled Fl Pathologist Comment Cancelled Fluid Comment 2 Cancelled Synovial Source LEFT KNEE Synovial Color Yellow Synovial Appearance Hazy Synovial Viscosity Viscous Synovial WBC 62.8000 H Synovial RBC 0.024 H Synovial Tot Cell Ct 73.2020 H Synov Polynuclear WBCs 70.551 Synov Mononuclear WBCs 2.631 Synovial Neutrophils 96 H Synovial Monocytes 4 Synovial Polynuclear % 96.4 Synovial Mononuclear % 3.6 Synovial Path Comment May follow - Other Studies Radiology: [] reviewed Other Studies: [] Route of nutrition/ use of supplements: [] Nutritional Intake: [] IV Site: [] Villeda Catheter: [] - Physical Exam General: Alert, Oriented x3, Cooperative, No apparent distress HEENT: Atraumatic, PERRLA, EOMI Neck: Supple, No Nodes Lungs: Clear to auscultation, Normal air movement Cardiovascular: Regular rate, Regular Rhythm, Murmur Abdomen: Soft, Non Tender, Non-Distended Extremities: Edema Skin: Ulcer/ Wound - L knee wrapped IV Site: Peripheral, without redness Neurological: Cranial nerves II-XII grossly intact - Assessment/Plan Antibiotics: [] Assessment/Plan: [] Active and Suspected Problems (Last Reviewed 08/11/18 @ 12:54 by Prasanth Del Angel MD) Septic arthritis of knee, left (Acute) Recurrent L knee septic arthritis - had I&D 07/[address] Rodriguez for MRSE septic arthritis, discharged on po vanc. Taken back to OR for recurrent sx and heavy purulence on aspiration 08/11/18. Surg cx pending. Cont vanc/ceftriaxone. No organisms seen on gram stain. If he develops fever or worsens, would change ceftriaxone to zosyn for broader GNR nosocomial coverage. Will follow, thank you, d/w case packer and sealer.
[2018-08-12 14:19] LABS: Pathologist Comment Reviewed
--- NOTE | 2018-08-12 16:47 | PCM.RX.CS ---
Consult Pharmacy has been consulted to manage selected antiobiotic: Vancomycin Type of Consult: Follow-up Suspected Infection: Other Prior Doses of Antibiotics Received/Current Regimen: Medications Vancomycin HCl 1,500 mg/ (Sodium Chloride) 530 mls @ 250 mls/hr IV Q8H NINOSKA Last Admin: 08/12/18 16:21 Dose: 250 mls/hr Labs: Sodium 141 mmol/L (136-145) 08/12/18 05:00 Potassium 4.0 mmol/L (3.5-5.1) 08/12/18 05:00 Chloride 108 mmol/L (98-107) H 08/12/18 05:00 Carbon Dioxide 24.0 mmol/L (21.0-32.0) 08/12/18 05:00 Anion Gap 9 (5-15) 08/12/18 05:00 BUN 16 mg/dL (7-18) 08/12/18 05:00 Creatinine 0.63 mg/dL (0.70-1.30) L 08/12/18 05:00 Est GFR (MDRD) Af Amer 166 mL/min (>60) 08/12/18 05:00 Est GFR (MDRD) Non-Af 138 mL/min (>60) 08/12/18 05:00 BUN/Creatinine Ratio 25.4 RATIO (10-20) H 08/12/18 05:00 Glucose 160 mg/dL (74-106) H 08/12/18 05:00 Vancomycin Trough 15.0 ug/mL (5.0-15.0) 08/12/18 15:35 Microbiology: Microbiology 08/11/18 17:28 Incision/Surgical Site Gram Stain - Final Weight used for dosin kg Estimated Creatinine Clearance: > 100 Goal Trough: 15-20 mcg/mL Pharmacy Plan for Drug Dosing: Trough within goal range, renal function still at baseline even with high/frequent dosing. Recheck trough in 4 days per policy. Consider sooner if change in renal function. Pharmacy Service will continue to monitor and adjust dosing as required. Follow-Up Labs: Trough Vancomycin - 08/16 @ 0730
[2018-08-12] MEDS: Lactated Ringers 1,000 ML 15 ML IV (19:00)
[2018-08-12] MEDS: FLUoxetine 20 MG Capsule 40 MG PO (22:37)
[2018-08-12] MEDS: Lisinopril 5 MG Tablet PO (22:37)
[2018-08-12] MEDS: Pantoprazole Sodium 40 MG Tablet PO (22:38)
[2018-08-12] MEDS: Meloxicam 15 MG Tablet PO (22:38)
[2018-08-12] MEDS: MELATONIN 3 MG TABLET PO (22:38)
[2018-08-12] MEDS: Atorvastatin Calcium 20 MG Tablet PO (22:38)
[2018-08-12] MEDS: Clopidogrel Bisulfate 75 MG Tablet PO (22:38)
[2018-08-13] VITALS (7 sets, daily range): BP systolic 139–172; BP diastolic 78–91; PULSE 60–66; RESP 15–16; TEMP 36.6–36.8; O2SAT 96–98
[2018-08-13] MEDS: Morphine 4 MG/ML Syringe IV (06:28)
--- NOTE | 2018-08-13 07:33 | PN_ITS ---
Patient Problems: Active and Suspected Problems (Last Reviewed 08/11/18 @ 12:54 by Prasanth Del Angel MD) Septic arthritis of knee, left (Acute) Subjective: Postoperative day 2. Patient's pain is tolerable. His joint aspirate cultures so far negative to date. Objective: GENERAL: cooperative HEENT: Atraumatic; moist oral mucosa EYES; Anicteric, Normal Conjunctiva NECK; supple, normal thyroid, no distended JVD. RESPIRATORY: Diminished to auscultation bilaterally, CARDIOVASCULAR: Regular S1 S2, no audible murmurs GI: soft, non-tender, normoactive bowel sounds, : No Renal angle tenderness; EXTREMITIES: No edema, no clubbing, no cyanosis. MUSCULOSKELETAL: Left knee in a surgical dressing with RAMA drain in place NEURO: Awake; no lateralizing signs. SKIN: No Rash PSYCH; Normal affect Vitals/I&O's: Vital Signs Temp Pulse Resp BP Pulse Ox 98.1 F 60 15 153/88 H 97 08/13/18 03:38 08/13/18 03:38 08/13/18 04:00 08/13/18 03:38 08/13/18 04:00 Oxygen Delivery Method Room Air Weight: 104.7 kg Body Mass Index (BMI) 32.9 Intake and Output for Last 24 Hours 08/11/18 08/12/18 08/13/18 23:59 23:59 23:59 Intake Total 1911 / 1911 4527 / 4527 935 / 935 Output Total 425 / 425 1000 / 1000 700 / 700 Balance 1486 / 1486 3527 / 3527 235 / 235 Microbiology Past 72 Hours 08/11/18 17:28 Incision/Surgical Site Gram Stain - Final Laboratory Results 08/11/18 17:28: Synovial Path Comment Reviewed 08/12/18 15:35: Vancomycin Trough 15.0 08/13/18 06:43: Sodium Pending, Potassium Pending, Chloride Pending, Carbon Dioxide Pending, Anion Gap Pending, BUN Pending, Creatinine Pending, Est GFR (MDRD) Af Amer Pending, Est GFR (MDRD) Non-Af Pending, BUN/Creatinine Ratio Pending, Glucose Pending, Calcium Pending 08/13/18 06:43: WBC Pending, RBC Pending, Hgb Pending, Hct Pending, MCV Pending, MCH Pending, MCHC Pending, RDW Pending, RDW Differential Pending, Plt Count Pending, Neut % (Auto) Pending, Absolute Neuts (auto) Pending, Total Counted Pending Current Medications Acetaminophen (Tylenol) 650 mg PO Q6H PRN PRN PRN Reason: Mild Pain (1-3)/Temp > 100.7 F Hydrocodone Bitart/Acetaminophen ([place]xton 5mg-325mg) 2 tablet PO Q6H PRN PRN PRN Reason: Moderate Pain (4-6/10) Last Admin: 08/12/18 16:20 Dose: 2 tablet Al Hydroxide/Mg Hydroxide (Mylanta Ii) 30 ml PO Q6H PRN PRN PRN Reason: Gastric Burning Albuterol Sulfate (Ventolin Aerosols) 2.5 mg INHALATION Q2H PRN PRN PRN Reason: Shortness of Breath/Wheezing Atorvastatin Calcium (Lipitor) 20 mg PO QHS [facility] Last Admin: 08/12/18 22:38 Dose: 20 mg Carvedilol (Coreg) 6.25 mg PO BID [facility] Last Admin: 08/12/18 22:38 Dose: 6.25 mg Clopidogrel Bisulfate (Plavix) 75 mg PO QHS [facility] Last Admin: 08/12/18 22:38 Dose: 75 mg Enoxaparin Sodium (Lovenox) 40 mg SC DAILY@1000 [facility] Last Admin: 08/12/18 10:10 Dose: 40 mg Fluoxetine HCl (Prozac) 40 mg PO QHS [facility] Last Admin: 08/12/18 22:37 Dose: 40 mg Guaifenesin (Robitussin) 20 ml PO Q4H PRN PRN PRN Reason: COUGH Ceftriaxone Sodium 2 gm/ (Sodium Chloride) 50 mls @ 100 mls/hr IV Q24 [facility] Last Admin: 08/12/18 10:21 Dose: 100 mls/hr Vancomycin HCl 1,500 mg/ (Sodium Chloride) 530 mls @ 250 mls/hr IV Q8H [facility] Last Admin: 08/13/18 00:37 Dose: 250 mls/hr Lactated Ringer's () 1,000 mls @ 15 mls/hr IV .Q48H [facility] Last Admin: 08/12/18 19:00 Dose: 15 mls/hr Lisinopril (Zestril) 5 mg PO QHS [facility] Last Admin: 08/12/18 22:37 Dose: 5 mg Magnesium Hydroxide (Milk Of Magnesia) 30 ml PO DAILY PRN PRN PRN Reason: Constipation Melatonin (Melatonin) 3 mg PO QHS PRN PRN PRN Reason: INSOMNIA Last Admin: 08/12/18 22:38 Dose: 3 mg Meloxicam (Mobic) 15 mg PO QHS [facility] Last Admin: 08/12/18 22:38 Dose: 15 mg Morphine Sulfate () 4 mg IV Q3H PRN PRN PRN Reason: Severe pain (7-10/10) Last Admin: 08/13/18 06:28 Dose: 4 mg Nitroglycerin (Nitrostat) 0.4 mg SUBLINGUAL Q5M PRN PRN Reason: CARDIAC/CHEST PAIN Ondansetron HCl (Zofran) 4 mg IV Q8H PRN PRN PRN Reason: NAUSEA/VOMITING Pantoprazole Sodium (Protonix) 40 mg PO QHS [facility] Last Admin: 08/12/18 22:38 Dose: 40 mg Promethazine HCl (Phenergan) 25 mg IM Q6H PRN PRN PRN Reason: Breakthrough nausea/vomiting Ranolazine (Ranexa) 1,000 mg PO BID [facility] Last Admin: 08/12/18 22:38 Dose: 1,000 mg Sodium Chloride () 5 - 15 ml IV UD PRN PRN Reason: SALINE FLUSH Medical Necessity - Tobacco Use Smoking Status: Former smoker Assessment/Plan All Active Problems (Last Reviewed 08/11/18 @ 12:54 by Prasanth Del Angel MD) Septic arthritis of knee, left (Acute) Patient is a 63-year-old gentleman admitted with left septic knee. 1. Left knee septic joint: Patient recently undergone cortisone injection on 07/21/[address] Clinton which was complicated by left knee septic joint. He underwent Arthrocentesis, synovectomy, irrigation and debridement 07/30/[address] Rodriguez. Then presented with recurrent infection admitted to regular nursing floor started on broad-spectrum antibiotic therapy with consultation placed to Dr. Jennifer Shaikh with infectious disease ~08/12/2018 patient underwent salk, open medial parapatella arthrotomy incision drainage irrigation and debridement. Cultures sent results pending. ~08/13/2018. Patient pain tolerable cultures remain negative to date. Patient did develop some hematoma at the site of incision. Case discussed with Dr. Dr. Rodriguez 2. Rheumatoid arthritis patient is on Humira again (which he has not had for over a month) as well as Arava. Both medications held 3. Coronary artery disease with previous CABG and subsequent angioplasty and stent placement patient is on recommended medications did continue 4. Hypertension-blood pressure controlled, home medications continued with dose adjustment as needed 5. Dyslipidemia-patient is on statin therapy, continued at home dose 6. History of CVA complicating patient's last angioplasty currently has no residual effects 7. Bilateral carotid artery disease moderate managed with medications 8. Depression patient is on SSRI 9. GERD 10. Obesity with BMI greater than 30 weight loss advised 11. DVT prophylaxis SC Lovenox Active Medications Acetaminophen (Tylenol) 650 mg PO Q6H PRN PRN PRN Reason: Mild Pain (1-3)/Temp > 100.7 F Hydrocodone Bitart/Acetaminophen ([place] 5mg-325mg) 2 tablet PO Q6H PRN PRN PRN Reason: Moderate Pain (4-6/10) Last Admin: 08/13/18 08:46 Dose: 2 tablet Al Hydroxide/Mg Hydroxide (Mylanta Ii) 30 ml PO Q6H PRN PRN PRN Reason: Gastric Burning Albuterol Sulfate (Ventolin Aerosols) 2.5 mg INHALATION Q2H PRN PRN PRN Reason: Shortness of Breath/Wheezing Atorvastatin Calcium (Lipitor) 20 mg PO QHS [facility] Last Admin: 08/12/18 22:38 Dose: 20 mg Carvedilol (Coreg) 6.25 mg PO BID [facility] Last Admin: 08/12/18 22:38 Dose: 6.25 mg Clopidogrel Bisulfate (Plavix) 75 mg PO QHS [facility] Last Admin: 08/12/18 22:38 Dose: 75 mg Enoxaparin Sodium (Lovenox) 40 mg SC DAILY@1000 [facility] Last Admin: 08/12/18 10:10 Dose: 40 mg Fluoxetine HCl (Prozac) 40 mg PO QHS [facility] Last Admin: 08/12/18 22:37 Dose: 40 mg Guaifenesin (Robitussin) 20 ml PO Q4H PRN PRN PRN Reason: COUGH Ceftriaxone Sodium 2 gm/ (Sodium Chloride) 50 mls @ 100 mls/hr IV Q24 [facility] Last Admin: 08/12/18 10:21 Dose: 100 mls/hr Vancomycin HCl 1,500 mg/ (Sodium Chloride) 530 mls @ 250 mls/hr IV Q8H [facility] Last Admin: 08/13/18 08:46 Dose: 250 mls/hr Lactated Ringer's () 1,000 mls @ 15 mls/hr IV .Q48H [facility] Last Admin: 08/12/18 19:00 Dose: 15 mls/hr Lisinopril (Zestril) 5 mg PO QHS [facility] Last Admin: 08/12/18 22:37 Dose: 5 mg Magnesium Hydroxide (Milk Of Magnesia) 30 ml PO DAILY PRN PRN PRN Reason: Constipation Melatonin (Melatonin) 3 mg PO QHS PRN PRN PRN Reason: INSOMNIA Last Admin: 08/12/18 22:38 Dose: 3 mg Meloxicam (Mobic) 15 mg PO QHS [facility] Last Admin: 08/12/18 22:38 Dose: 15 mg Morphine Sulfate () 4 mg IV Q3H PRN PRN PRN Reason: Severe pain (7-10/10) Last Admin: 08/13/18 06:28 Dose: 4 mg Nitroglycerin (Nitrostat) 0.4 mg SUBLINGUAL Q5M PRN PRN Reason: CARDIAC/CHEST PAIN Ondansetron HCl (Zofran) 4 mg IV Q8H PRN PRN PRN Reason: NAUSEA/VOMITING Pantoprazole Sodium (Protonix) 40 mg PO QHS [facility] Last Admin: 08/12/18 22:38 Dose: 40 mg Promethazine HCl (Phenergan) 25 mg IM Q6H PRN PRN PRN Reason: Breakthrough nausea/vomiting Ranolazine (Ranexa) 1,000 mg PO BID [facility] Last Admin: 08/12/18 22:38 Dose: 1,000 mg Sodium Chloride () 5 - 15 ml IV UD PRN PRN Reason: SALINE FLUSH Code Visit Inpatient E&M: 03270 Subs Hosp L2
[2018-08-13 07:59] LABS: Absolute Lymphocyte Count 2.38 X10^3/ul (0.83-4.51); Absolute Neutrophil Count 3.9 X10^3/uL (2.0-7.7); Basophil# 0.02 X10^3/uL; Basophil% 0.3 % (0-1); Eosinophil# 0.08 X10^3/uL; Eosinophils% 1.1 % (0-5); Hematocrit 30.9 % (40-54); Hemoglobin 10.4 g/dl (13.0-16.5); Lymphocyte # 2.38 X10^3/ul (4.0); Lymphocyte % 32.9 % (19-41); Mean Corp Hgb Conc 33.7 g/gl (32-36); Mean Corpuscular Hgb 32.7 pg (27.0-32.0); Mean Corpuscular Volume 97.2 fL (80-94); Mean Platelet Vol. 8.7 fl (6.2-12.0); Monocyte# 0.82 X10^3/uL; Monocyte% 11.3 % (0-10); Neutrophil # 3.92 X10^3/uL (2.7-7.7); Neutrophil % 54.1 % (47-70); Platelet Count 269 K/mm3 (150-450); RBC Distribution Width CV 13.5 % (11.6-14.6); RBC Distribution Width SD 48.5 fl (35.1-43.9); Red Blood Count 3.18 M/mm3 (4.6-6.2); White Blood Count 7.2 K/mm3 (4.4-11.0)
[2018-08-13 08:00] LABS: POSITIVE COUNT NO; POSITIVE DIFFERENTIAL NO; POSITIVE MORPHOLOGY NO
[2018-08-13 08:02] LABS: Anion Gap 9 (5-15); BUN 11 mg/dL (7-18); BUN/Creat Ratio 20.6 RATIO (10-20); Calcium,Total 8.4 mg/dL (8.5-10.1); Chloride 109 mmol/L (98-107); Creatinine, Serum 0.53 mg/dL (0.70-1.30); EST Glomerular Filtration Rate 166 mL/min (>60); Est Glom Filt Rate - Afr Amer 201 mL/min (>60); Estimated Creatinine Clearance 146.37 ml/min; Glucose 109 mg/dL (74-106); Potassium 3.7 mmol/L (3.5-5.1); Sodium Level 143 mmol/L (136-145)
--- NOTE | 2018-08-13 08:39 | PN.ORTHO_ITS ---
Patient Problems: Active and Suspected Problems (Last Reviewed 08/11/18 @ 12:54 by Prasanth Del Angel MD) Septic arthritis of knee, left (Acute) Subjective: Patient seen and examined at bedside. No complaints this morning was up with physical therapy yesterday was able to increase his ambulation. Still aching of the left knee. No calf pain shortness of breath fever chills or other constitutional symptoms. States he has not had a bowel movement hoping with the second couple coffee this morning that he will get to that point. Is using incentive spirometer. - Physical Exam General: Alert, Oriented x3, Cooperative HEENT: Atraumatic, PERRLA, EOMI, Normocephalic Neck: Supple, No JVD, Negative Carotid Bruits Lungs: Clear to auscultation, Normal air movement Cardiovascular: Regular rate, No murmurs Abdomen: Bowel Sounds Present, Soft, Non Tender Extremities: No edema, Capillary Refill Less than 3 Seconds Skin: No rashes, No breakdown Musculoskeletal: Tenderness - Around incision left knee, negative Homans sign, compartment soft sensation grossly intact active range of motion knee intact able to straight leg raise Neurological: Cranial nerves II-XII grossly intact Psych/Mental Status: Normal Affect, Appropriate Vital Signs Temp Pulse Resp BP Pulse Ox 98.1 F 60 15 153/88 H 96 08/13/18 03:38 08/13/18 03:38 08/13/18 04:00 08/13/18 03:38 08/13/18 08:05 Oxygen Delivery Method Room Air Weight: 230 lb 13.184 oz Body Mass Index (BMI) 32.9 Intake and Output for Last 24 Hours 08/11/18 08/12/18 08/13/18 23:59 23:59 23:59 Intake Total 1910 / 191 4527 / 4527 935 / 935 Output Total 425 / 425 1000 / 1000 700 / 700 Balance 1486 / 1486 3527 / 3527 235 / 235 Microbiology Past 72 Hours 08/11/18 17:28 Gram Stain - Final Incision/Surgical Site Laboratory Tests Past 24 Hrs 08/11/18 08/12/18 08/13/18 17:28 15:35 06:43 WBC RBC Hgb Hct MCV MCH MCHC RDW RDW Differential Plt Count MPV Immature Gran % (Auto) Neut % (Auto) Lymph % (Auto) [place] % (Auto) Eos % (Auto) Baso % (Auto) Absolute Neuts (auto) Absolute Lymphs (auto) Total Counted Sodium 143 Potassium 3.7 Chloride 109 H Carbon Dioxide 25.0 Anion Gap 9 BUN 11 Creatinine 0.53 L Estim Creat Clear Calc 146.37 Est GFR (MDRD) Af Amer 201 Est GFR (MDRD) Non-Af 166 BUN/Creatinine Ratio 20.6 H Glucose 109 H Calcium 8.4 L Synovial Path Comment Reviewed Vancomycin Trough 15.0 08/13/18 06:43 WBC 7.2 RBC 3.18 L Hgb 10.4 L Hct 30.9 L MCV 97.2 H MCH 32.7 H MCHC 33.7 RDW 13.5 RDW Differential 48.5 H Plt Count 269 MPV 8.7 Immature Gran % (Auto) 0.300 Neut % (Auto) 54.1 Lymph % (Auto) 32.9 [place] % (Auto) 11.3 H Eos % (Auto) 1.1 Baso % (Auto) 0.3 Absolute Neuts (auto) 3.9 Absolute Lymphs (auto) 2.38 Total Counted Not Reportable Sodium Potassium Chloride Carbon Dioxide Anion Gap BUN Creatinine Estim Creat Clear Calc Est GFR (MDRD) Af Amer Est GFR (MDRD) Non-Af BUN/Creatinine Ratio Glucose Calcium Synovial Path Comment Vancomycin Trough Medical Necessity - Tobacco Use Smoking Status: Former smoker Assessment/Plan All Active Problems (Last Reviewed 08/11/18 @ 12:54 by Prasanth Del Angel MD) Septic arthritis of knee, left (Acute) pod 2 s/p left open medial parapatella arthrotomy/synovectomy salk synovectomy antibiotics LOVENOX waiting on definitive antibiotics recs per ID wbat left LE vanc/cef per ID/hospitalist call with concerns This note was generated with [employer] software. It may contain incorrect words, spelling, and punctuation that were not noted in checking the note before signing.
[2018-08-13] MEDS: HYDROcodone Bitartrate/Apap 5/325 Tablet PO ×3 (08:46→21:32)
[2018-08-13] MEDS: Enoxaparin 40 MG/0.4 ML Syringe SC (10:48)
[2018-08-13] MEDS: Carvedilol 6.25 MG Tablet PO ×2 (10:48→20:16)
[2018-08-13] MEDS: Ranolazine 500 MG Tablet 1000 MG PO ×2 (10:48→21:32)
[2018-08-13] MEDS: Lactated Ringers 1,000 ML 15 ML IV (15:11)
[2018-08-13] MEDS: Lisinopril 5 MG Tablet PO (20:15)
[2018-08-13] MEDS: Meloxicam 15 MG Tablet PO (21:32)
[2018-08-13] MEDS: Clopidogrel Bisulfate 75 MG Tablet PO (21:32)
[2018-08-13] MEDS: MELATONIN 3 MG TABLET PO (21:32)
[2018-08-13] MEDS: Atorvastatin Calcium 20 MG Tablet PO (21:32)
[2018-08-13] MEDS: FLUoxetine 20 MG Capsule 40 MG PO (21:32)
[2018-08-13] MEDS: Pantoprazole Sodium 40 MG Tablet PO (21:32)
[2018-08-14 02:30] VITALS: BP 145/87; PULSE 66; RESP 16; TEMP 36.8; O2SAT 98
[2018-08-14] MEDS: HYDROcodone Bitartrate/Apap 5/325 Tablet PO ×3 (06:36→19:22)
[2018-08-14 07:10] LABS: Absolute Lymphocyte Count 2.03 X10^3/ul (0.83-4.51); Absolute Neutrophil Count 3.1 X10^3/uL (2.0-7.7); Basophil# 0.02 X10^3/uL; Basophil% 0.3 % (0-1); Eosinophils% 1.7 % (0-5); Hematocrit 34.9 % (40-54); Hemoglobin 11.7 g/dl (13.0-16.5); Lymphocyte # 2.03 X10^3/ul (4.0); Lymphocyte % 33.9 % (19-41); Mean Corp Hgb Conc 33.5 g/gl (32-36); Mean Corpuscular Hgb 32.6 pg (27.0-32.0); Mean Corpuscular Volume 97.2 fL (80-94); Mean Platelet Vol. 8.4 fl (6.2-12.0); Monocyte# 0.77 X10^3/uL; Monocyte% 12.9 % (0-10); Neutrophil # 3.05 X10^3/uL (2.7-7.7); Platelet Count 293 K/mm3 (150-450); RBC Distribution Width CV 13.6 % (11.6-14.6); RBC Distribution Width SD 48.7 fl (35.1-43.9); Red Blood Count 3.59 M/mm3 (4.6-6.2)
[2018-08-14 07:16] LABS: POSITIVE COUNT NO; POSITIVE DIFFERENTIAL NO; POSITIVE MORPHOLOGY NO
[2018-08-14 07:24] LABS: Anion Gap 9 (5-15); BUN 8 mg/dL (7-18); BUN/Creat Ratio 13.6 RATIO (10-20); Calcium,Total 9.1 mg/dL (8.5-10.1); Chloride 106 mmol/L (98-107); Creatinine, Serum 0.59 mg/dL (0.70-1.30); EST Glomerular Filtration Rate 149 mL/min (>60); Est Glom Filt Rate - Afr Amer 180 mL/min (>60); Estimated Creatinine Clearance 131.48 ml/min; Glucose 113 mg/dL (74-106); Potassium 4.1 mmol/L (3.5-5.1); Sodium Level 142 mmol/L (136-145)
--- NOTE | 2018-08-14 07:41 | PN_ITS ---
Patient Problems: Active and Suspected Problems (Last Reviewed 08/11/18 @ 12:54 by Prasanth Del Angel MD) Septic arthritis of knee, left (Acute) Subjective: Patient seen complains of intermittent pain in the left knee. Cultures have remained negative to date Objective: GENERAL: cooperative HEENT: Atraumatic; moist oral mucosa EYES; Anicteric, Normal Conjunctiva NECK; supple, normal thyroid, no distended JVD. RESPIRATORY: Diminished to auscultation bilaterally, CARDIOVASCULAR: Regular S1 S2, no audible murmurs GI: soft, non-tender, normoactive bowel sounds, : No Renal angle tenderness; EXTREMITIES: No edema, no clubbing, no cyanosis. MUSCULOSKELETAL: Left knee in a surgical dressing with RAMA drain in place NEURO: Awake; no lateralizing signs. SKIN: No Rash PSYCH; Normal affect Vitals/I&O's: Vital Signs Temp Pulse Resp BP Pulse Ox 98.3 F 66 16 145/87 H 98 08/14/18 02:30 08/14/18 02:30 08/14/18 02:30 08/14/18 02:30 08/14/18 02:30 Oxygen Delivery Method Room Air Weight: 101.6 kg Body Mass Index (BMI) 32.9 Intake and Output for Last 24 Hours 08/12/18 08/13/18 08/14/18 23:59 23:59 23:59 Intake Total 4527 / 4527 2984 / 2984 596 / 596 Output Total 1000 / 1000 700 / 700 Balance 3527 / 3527 2284 / 2284 596 / 596 Microbiology Past 72 Hours 08/11/18 17:28 Incision/Surgical Site Gram Stain - Final 08/11/18 17:28 Incision/Surgical Site Wound Culture - Preliminary No growth-Final to follow 08/11/18 17:28 Incision/Surgical Site Anaerobic Culture - Preliminary No growth in 48 hours. Laboratory Results 08/13/18 06:43: Sodium 143, Potassium 3.7, Chloride 109 H, Carbon Dioxide 25.0, Anion Gap 9, BUN 11, Creatinine 0.53 L, Estim Creat Clear Calc 146.37, Est GFR (MDRD) Af Amer 201, Est GFR (MDRD) Non-Af 166, BUN/Creatinine Ratio 20.6 H, Glucose 109 H, Calcium 8.4 L 08/13/18 06:43: WBC 7.2, RBC 3.18 L, Hgb 10.4 L, Hct 30.9 L, MCV 97.2 H, MCH 32.7 H, MCHC 33.7, RDW 13.5, RDW Differential 48.5 H, Plt Count 269, MPV 8.7, Immature Gran % (Auto) 0.300, Neut % (Auto) 54.1, Lymph % (Auto) 32.9, [place] % (Auto) 11.3 H, Eos % (Auto) 1.1, Baso % (Auto) 0.3, Absolute Neuts (auto) 3.9, Absolute Lymphs (auto) 2.38, Total Counted Not Reportable 08/14/18 06:44: Sodium 142, Potassium 4.1, Chloride 106, Carbon Dioxide 27.0, Anion Gap 9, BUN 8, Creatinine 0.59 L, Estim Creat Clear Calc 131.48, Est GFR (MDRD) Af Amer 180, Est GFR (MDRD) Non-Af 149, BUN/Creatinine Ratio 13.6, Glucose 113 H, Calcium 9.1 08/14/18 06:44: WBC 6.0, RBC 3.59 L, Hgb 11.7 L, Hct 34.9 L, MCV 97.2 H, MCH 32.6 H, MCHC 33.5, RDW 13.6, RDW Differential 48.7 H, Plt Count 293, MPV 8.4, Immature Gran % (Auto) 0.200, Neut % (Auto) 51.0, Lymph % (Auto) 33.9, [place] % (Auto) 12.9 H, Eos % (Auto) 1.7, Baso % (Auto) 0.3, Absolute Neuts (auto) 3.1, Absolute Lymphs (auto) 2.03, Total Counted Not Reportable Current Medications Acetaminophen (Tylenol) 650 mg PO Q6H PRN PRN PRN Reason: Mild Pain (1-3)/Temp > 100.7 F Hydrocodone Bitart/Acetaminophen ([place] 5mg-325mg) 2 tablet PO Q6H PRN PRN PRN Reason: Moderate Pain (4-6/10) Last Admin: 08/14/18 06:36 Dose: 2 tablet Al Hydroxide/Mg Hydroxide (Mylanta Ii) 30 ml PO Q6H PRN PRN PRN Reason: Gastric Burning Albuterol Sulfate (Ventolin Aerosols) 2.5 mg INHALATION Q2H PRN PRN PRN Reason: Shortness of Breath/Wheezing Atorvastatin Calcium (Lipitor) 20 mg PO QHS [facility] Last Admin: 08/13/18 21:32 Dose: 20 mg Carvedilol (Coreg) 6.25 mg PO BID [facility] Last Admin: 08/13/18 20:16 Dose: 6.25 mg Clopidogrel Bisulfate (Plavix) 75 mg PO QHS [facility] Last Admin: 08/13/18 21:32 Dose: 75 mg Enoxaparin Sodium (Lovenox) 40 mg SC DAILY@1000 [facility] Last Admin: 08/13/18 10:48 Dose: 40 mg Fluoxetine HCl (Prozac) 40 mg PO QHS [facility] Last Admin: 08/13/18 21:32 Dose: 40 mg Guaifenesin (Robitussin) 20 ml PO Q4H PRN PRN PRN Reason: COUGH Ceftriaxone Sodium 2 gm/ (Sodium Chloride) 50 mls @ 100 mls/hr IV Q24 [facility] Last Admin: 08/13/18 11:03 Dose: 100 mls/hr Vancomycin HCl 1,500 mg/ (Sodium Chloride) 530 mls @ 250 mls/hr IV Q8H [facility] Last Admin: 08/14/18 00:10 Dose: 250 mls/hr Lactated Ringer's () 1,000 mls @ 15 mls/hr IV .Q48H [facility] Last Admin: 08/13/18 15:11 Dose: 15 mls/hr Lisinopril (Zestril) 5 mg PO QHS [facility] Last Admin: 08/13/18 20:15 Dose: 5 mg Magnesium Hydroxide (Milk Of Magnesia) 30 ml PO DAILY PRN PRN PRN Reason: Constipation Melatonin (Melatonin) 3 mg PO QHS PRN PRN PRN Reason: INSOMNIA Last Admin: 08/13/18 21:32 Dose: 3 [facility] Admin: 08/13/18 21:32 Dose: 15 mg Morphine Sulfate () 4 mg IV Q3H PRN PRN PRN Reason: Severe pain (7-10/10) Last Admin: 08/13/18 06:28 Dose: 4 mg Nitroglycerin (Nitrostat) 0.4 mg SUBLINGUAL Q5M PRN PRN Reason: CARDIAC/CHEST PAIN Ondansetron HCl (Zofran) 4 mg IV Q8H PRN PRN PRN Reason: NAUSEA/VOMITING Pantoprazole Sodium (Protonix) 40 mg PO QHS [facility] Last Admin: 08/13/18 21:32 Dose: 40 mg Promethazine HCl (Phenergan) 25 mg IM Q6H PRN PRN PRN Reason: Breakthrough nausea/vomiting Ranolazine (Ranexa) 1,000 mg PO BID [facility] Last Admin: 08/13/18 21:32 Dose: 1,000 mg Sodium Chloride () 5 - 15 ml IV UD PRN PRN Reason: SALINE FLUSH Medical Necessity - Tobacco Use Smoking Status: Former smoker Assessment/Plan All Active Problems (Last Reviewed 08/11/18 @ 12:54 by Prasanth Del Angel MD) Septic arthritis of knee, left (Acute) Patient is a 63-year-old gentleman admitted with left septic knee. 1. Left knee septic joint: Patient recently undergone cortisone injection on 07/21/[address] Clinton which was complicated by left knee septic joint. He underwent Arthrocentesis, synovectomy, irrigation and debridement 07/30/[address] Rodriguez. Then presented with recurrent infection admitted to regular nursing floor started on broad-spectrum antibiotic therapy with consultation placed to Dr. Jennifer Shaikh with infectious disease ~08/12/2018 patient underwent salk, open medial parapatella arthrotomy incision drainage irrigation and debridement. Cultures sent results pending. ~08/13/2018. Patient pain tolerable cultures remain negative to date. Patient did develop some hematoma at the site of incision. Case discussed with Dr. Dr. Rodriguez ~ 08/14/2018: Cultures have remained negative to date patient still complains of some intermittent pain in the left knee. Pain Meds adjusted final antibiotic therapy deferred to infectious disease 2. Rheumatoid arthritis patient is on Humira again (which he has not had for over a month) as well as Arava. Both medications held 3. Coronary artery disease with previous CABG and subsequent angioplasty and stent placement patient is on recommended medications did continue 4. Hypertension-blood pressure controlled, home medications continued with dose adjustment as needed 5. Dyslipidemia-patient is on statin therapy, continued at home dose 6. History of CVA complicating patient's last angioplasty currently has no residual effects 7. Bilateral carotid artery disease moderate managed with medications 8. Depression patient is on SSRI 9. GERD 10. Obesity with BMI greater than 33 weight loss advised 11. DVT prophylaxis SC Lovenox Disposition do anticipate discharge home in 1 to 2 days with antibiotic recommendations from ID Code Visit Inpatient E&M: 00196 Subs Hosp L2
[2018-08-14 08:26] VITALS: O2SAT 96
[2018-08-14 08:30] VITALS: BP 144/96; PULSE 78; RESP 18; TEMP 36.6; O2SAT 96
[2018-08-14] MEDS: 0.9% NaCl Peripheral Flush Adult/Peds IV ×5 (08:31→23:41)
[2018-08-14] MEDS: Morphine 4 MG/ML Syringe IV (09:23)
[2018-08-14] MEDS: Enoxaparin 40 MG/0.4 ML Syringe SC (11:54)
[2018-08-14] MEDS: Ranolazine 500 MG Tablet 1000 MG PO ×2 (11:54→21:13)
[2018-08-14] MEDS: Carvedilol 6.25 MG Tablet PO ×2 (11:54→21:13)
[2018-08-14 14:36] VITALS: BP 136/67; PULSE 68; RESP 18; TEMP 36.4; O2SAT 96
[2018-08-14 21:06] VITALS: BP 154/83; PULSE 66; RESP 18; TEMP 36.7; O2SAT 95
[2018-08-14] MEDS: FLUoxetine 20 MG Capsule 40 MG PO (21:13)
[2018-08-14] MEDS: Pantoprazole Sodium 40 MG Tablet PO (21:13)
[2018-08-14] MEDS: Meloxicam 15 MG Tablet PO (21:13)
[2018-08-14] MEDS: Clopidogrel Bisulfate 75 MG Tablet PO (21:13)
[2018-08-14] MEDS: Atorvastatin Calcium 20 MG Tablet PO (21:13)
[2018-08-14] MEDS: Lisinopril 5 MG Tablet PO (21:13)
[2018-08-15] VITALS (9 sets, daily range): BP systolic 127–173; BP diastolic 76–88; PULSE 66–77; RESP 16–18; TEMP 36.6–36.9; O2SAT 94–99
[2018-08-15] MEDS: HYDROcodone Bitartrate/Apap 5/325 Tablet PO ×4 (03:23→19:31)
[2018-08-15] MEDS: hydrALAZINE 20 MG/ML Vial 10 MG IV (04:17)
[2018-08-15] MEDS: 0.9% NaCl Peripheral Flush Adult/Peds IV ×3 (04:17→16:18)
[2018-08-15] MEDS: Carvedilol 6.25 MG Tablet PO ×2 (09:47→21:04)
[2018-08-15] MEDS: Ranolazine 500 MG Tablet 1000 MG PO ×2 (09:47→21:04)
[2018-08-15] MEDS: Enoxaparin 40 MG/0.4 ML Syringe SC (09:47)
--- NOTE | 2018-08-15 12:20 | CASEMGMT ---
Per Dr. Shaikh, pt to be sent home on Vancomycin 1500mg IV every 8hours and script provided at this time. This RN CM to room to speak with pt/ and pt states would like to go home with [facility] for iv antibx x10 days at discharge. Referral faxed to [facility] at this time and call to Mariela at [facility] to notify of referral, voices understanding. Scar SIERRA CM
--- NOTE | 2018-08-15 12:44 | PCM.PN.ORT ---
Patient Problems: Active and Suspected Problems (Last Reviewed 08/11/18 @ 12:54 by Prasanth Del Angel MD) Septic arthritis of knee, left (Acute) Subjective: Patient states that he is doing well post open irrigation and debridement of his left knee on 08-12-18. He states that he is having minimal pains if any currently. He has been able to be up and walking in the halls with minimal discomfort. He continues to work on ROM but stats he is pretty stiff when it comes to bending. He has not noticed any increase in swelling of the knee post op. He denies any skin changes around the incisions (erythema, discharge), numbness/tingling, calf pains, decreased movments in the foot/ankle. - Physical Exam General: Alert, Oriented x3, Cooperative, No apparent distress, Well developed, Well nourished Extremities: No clubbing, No cyanosis, No edema, Capillary Refill Less than 3 Seconds, No Calf Tenderness, Peripheral Pulses Normal Skin: Incision - incisions are clean and dry without surrounding erythema, inflammation, or discharge. Neurological: Neuro grossly intact - patient has normal sensation throughout the extremity. Normal gross motor function of the ankle/foot/toes. Normal pulses. Psych/Mental Status: Anxious - Can tell he feels a little anxious to get out of the hospital., - - Patient is a little more down today than his normal self. He is not someone to sit around and so is difficult sitting in the hospital. Vital Signs Temp Pulse Resp BP Pulse Ox 97.9 F 77 16 127/76 H 96 08/15/18 09:00 08/15/18 09:00 08/15/18 09:00 08/15/18 09:00 08/15/18 09:00 Oxygen Delivery Method Room Air Weight: 227 lb 8.273 oz Body Mass Index (BMI) 32.9 Intake and Output for Last 24 Hours 08/13/18 08/14/18 08/15/18 23:59 23:59 23:59 Intake Total 2984 / 2984 1514 / 1514 590 / 590 Output Total 700 / 700 Balance 2284 / 2284 1514 / 1514 590 / 590 Microbiology Past 72 Hours 08/11/18 17:28 Gram Stain - Final Incision/Surgical Site Wound Culture - Final No growth aerobically. Anaerobic Culture - Preliminary No growth in 48 hours. Medical Necessity - Tobacco Use Smoking Status: Former smoker Assessment/Plan All Active Problems (Last Reviewed 08/11/18 @ 12:54 by Prasanth Del Angel MD) Septic arthritis of knee, left (Acute) Patient has had continued consultations with infectious disease in regards to his treatments moving forward. It was discussed that he could be going home tomorrow with home health assistance. He will have treatment through his pic line. He is follow-up with ID once released from the hospital. He is to have his katrina removed in 10 days (2 weeks post-op) in our office. He can continue to ice and elevate the leg and take pain medications as needed. Continue to monitor and notify of increased pains, increased swelling, discharge, warmth, erythema, calf pains/tenderness or any other symptoms. He has no other questions at this time.
--- NOTE | 2018-08-15 13:24 | PN.ID_ITS ---
Patient Problems: Active and Suspected Problems (Last Reviewed 08/11/18 @ 12:54 by Prasanth Del Angel MD) Septic arthritis of knee, left (Acute) Subjective: Feeling well, walking some, no fever, no n/v/d. - Physical Exam General: Alert, Cooperative, No apparent distress Lungs: Clear to auscultation, Normal air movement Cardiovascular: Regular rate, Regular Rhythm Abdomen: Soft, Non Tender, Non-Distended Skin: No rashes, Incision - L knee Vital Signs Temp Pulse Resp BP Pulse Ox 97.9 F 77 16 127/76 H 96 08/15/18 09:00 08/15/18 09:00 08/15/18 09:00 08/15/18 09:00 08/15/18 09:00 Oxygen Delivery Method Room Air Weight: 103.2 kg Body Mass Index (BMI) 32.9 Intake and Output for Last 24 Hours 08/13/18 08/14/18 08/15/18 23:59 23:59 23:59 Intake Total 2984 / 2984 1514 / 1514 590 / 590 Output Total 700 / 700 Balance 2284 / 2284 1514 / 1514 590 / 590 Microbiology Past 72 Hours 08/11/18 17:28 Gram Stain - Final Incision/Surgical Site Wound Culture - Final No growth aerobically. Anaerobic Culture - Preliminary No growth in 48 hours. Medical Necessity - Tobacco Use Smoking Status: Former smoker Route of nutrition/ use of supplements: [] Nutritional Intake: [] IV Site: [] Villeda Catheter: [] - Assessment/Plan Antibiotics: [] Assessment/Plan: [] Active and Suspected Problems (Last Reviewed 08/11/18 @ 12:54 by Prasanth Del Angel MD) Septic arthritis of knee, left (Acute) Recurrent L knee septic arthritis - had I&D 07/[address] Rodriguez for MRSE septic arthritis, discharged on po vanc. Taken back to OR for recurrent sx and heavy purulence on aspiration 08/11/18. Surg cx neg so far. Cont vanc, will stop ceftriaxone. Ok for d/c home on 10 more days of iv vanc and then plan on po abx. Asked micro lab hold surg cxs for 14 days. ID followup with me at wound center next week. Will follow, d/w case management specialist. Rx written. Picc ordered.
--- NOTE | 2018-08-15 13:50 | PCM.PN.HOSP ---
Patient Problems: Active and Suspected Problems (Last Reviewed 08/11/18 @ 12:54 by Prasanth Del Angel MD) Septic arthritis of knee, left (Acute) Subjective: Feels much better today, but knee pain is controlled Vitals/I&O's: Vital Signs Temp Pulse Resp BP Pulse Ox 97.9 F 77 16 127/76 H 96 08/15/18 09:00 08/15/18 09:00 08/15/18 09:00 08/15/18 09:00 08/15/18 09:00 Oxygen Delivery Method Room Air Weight: 227 lb 8.273 oz Body Mass Index (BMI) 32.9 Intake and Output for Last 24 Hours 08/13/18 08/14/18 08/15/18 23:59 23:59 23:59 Intake Total 2984 / 2984 1514 / 1514 590 / 590 Output Total 700 / 700 Balance 2284 / 2284 1514 / 1514 590 / 590 General: Alert, Oriented x3, Cooperative, No apparent distress HEENT: Atraumatic, PERRLA, EOMI, Normocephalic Oral: Moist Mucosa Neck: Supple, No JVD Lungs: Clear to auscultation, Normal air movement, No rhonchi, No wheeze, No rales Cardiovascular: Regular rate, Regular Rhythm, Normal S1, Normal S2, No murmurs Abdomen: Soft, Non Tender, Non-Distended, No Hepato-splenomegaly Extremities: No edema, Capillary Refill Less than 3 Seconds Skin: No rashes, No breakdown, Incision - Dressing in place Neurological: Neuro grossly intact, Sensory exam intact to light touch and pain Psych/Mental Status: Normal Affect, Appropriate Microbiology Past 72 Hours 08/11/18 17:28 Incision/Surgical Site Gram Stain - Final 08/11/18 17:28 Incision/Surgical Site Wound Culture - Preliminary No growth-Final to follow 08/11/18 17:28 Incision/Surgical Site Anaerobic Culture - Preliminary No growth in 48 hours. Current Medications Acetaminophen (Tylenol) 650 mg PO Q6H PRN PRN PRN Reason: Mild Pain (1-3)/Temp > 100.7 F Hydrocodone Bitart/Acetaminophen ([place] 5mg-325mg) 2 tablet PO Q4H PRN PRN PRN Reason: Moderate Pain (4-6/10) Last Admin: 08/15/18 07:58 Dose: 2 tablet Al Hydroxide/Mg Hydroxide (Mylanta Ii) 30 ml PO Q6H PRN PRN PRN Reason: Gastric Burning Albuterol Sulfate (Ventolin Aerosols) 2.5 mg INHALATION Q2H PRN PRN PRN Reason: Shortness of Breath/Wheezing Atorvastatin Calcium (Lipitor) 20 mg PO QHS [facility] Last Admin: 08/14/18 21:13 Dose: 20 mg Carvedilol (Coreg) 6.25 mg PO BID [facility] Last Admin: 08/15/18 09:47 Dose: 6.25 mg Clopidogrel Bisulfate (Plavix) 75 mg PO QHS [facility] Last Admin: 08/14/18 21:13 Dose: 75 mg Enoxaparin Sodium (Lovenox) 40 mg SC DAILY@1000 [facility] Last Admin: 08/15/18 09:47 Dose: 40 mg Fluoxetine HCl (Prozac) 40 mg PO QHS [facility] Last Admin: 08/14/18 21:13 Dose: 40 mg Guaifenesin (Robitussin) 20 ml PO Q4H PRN PRN PRN Reason: COUGH Hydralazine HCl (Apresoline Iv) 10 mg IV Q4H PRN PRN PRN Reason: systolic >160 Last Admin: 08/15/18 04:17 Dose: 10 mg Vancomycin HCl 1,500 mg/ (Sodium Chloride) 530 mls @ 250 mls/hr IV Q8H [facility] Last Admin: 08/15/18 07:50 Dose: 250 mls/hr Lactated Ringer's () 1,000 mls @ 15 mls/hr IV .Q48H [facility] Last Admin: 08/13/18 15:11 Dose: 15 mls/hr Lisinopril (Zestril) 5 mg PO QHS [facility] Last Admin: 08/14/18 21:13 Dose: 5 mg Magnesium Hydroxide (Milk Of Magnesia) 30 ml PO DAILY PRN PRN PRN Reason: Constipation Melatonin (Melatonin) 3 mg PO QHS PRN PRN PRN Reason: INSOMNIA Last Admin: 08/13/18 21:32 Dose: 3 mg Meloxicam (Mobic) 15 mg PO [facility] Last Admin: 08/14/18 21:13 Dose: 15 mg Morphine Sulfate () 4 mg IV Q3H PRN PRN PRN Reason: Severe pain (7-10/10) Last Admin: 08/14/18 09:23 Dose: 4 mg Nitroglycerin (Nitrostat) 0.4 mg SUBLINGUAL Q5M PRN PRN Reason: CARDIAC/CHEST PAIN Ondansetron HCl (Zofran) 4 mg IV Q8H PRN PRN PRN Reason: NAUSEA/VOMITING Pantoprazole Sodium (Protonix) 40 mg PO QHS [facility] Last Admin: 08/14/18 21:13 Dose: 40 mg Promethazine HCl (Phenergan) 25 mg IM Q6H PRN PRN PRN Reason: Breakthrough nausea/vomiting Ranolazine (Ranexa) 1,000 mg PO BID [facility] Last Admin: 08/15/18 09:47 Dose: 1,000 mg Sodium Chloride () 5 - 15 ml IV UD PRN PRN Reason: SALINE FLUSH Last Admin: 08/15/18 07:50 Dose: 10 ml Medical Necessity - Tobacco Use Smoking Status: Former smoker Assessment/Plan All Active Problems (Last Reviewed 08/11/18 @ 12:54 by Prasanth Del Angel MD) Septic arthritis of knee, left (Acute) 1. Septic joint of left knee -He had a cortisone injection his knee by Dr. Liang on 07/21/2018, which appears to be complicated with a septic joint -He had a washout over Memorial Day weekend and had some interval improvement, and then it worsened. At that time he was discharged on p.o. doxycycline -Had a repeat washout and is tolerating it much better, cultures are negative -Infectious disease was consulted and recommends IV vancomycin for 10 more days and then will be transitioned to p.o. therapy as an outpatient -Will extend cultures at the microbiology lab in case there is a slow-growing organism -We will plan for discharge tomorrow morning since we do not have authorization yet from insurance for his home IV antibiotics 2. Rheumatoid arthritis -He was on Humira within the last 3 months, as well as Arava -Both are held and will need to be held until this infection is resolved 3. CAD status post CABG and stent/HTN/HLD/3 of CVA/bilateral carotid artery disease/obesity -Can continue with his home Plavix -Continue with Crestor, lisinopril, Coreg -BMI of 33, lifestyle modifications were discussed 4. GERD -Stable -Continue with PPI 5. Anxiety/depression -Stable -Continue with Prozac DVT: Lovenox Code Visit Inpatient E&M: 28437 Subs Hosp L2
--- NOTE | 2018-08-15 13:58 | PN_ITS ---
Patient Problems: Active and Suspected Problems (Last Reviewed 08/11/18 @ 12:54 by Prasanth Del Angel MD) Septic arthritis of knee, left (Acute) Subjective: Feels much better today, but knee pain is controlled Vitals/I&O's: Vital Signs Temp Pulse Resp BP Pulse Ox 97.9 F 77 16 127/76 H 96 08/15/18 09:00 08/15/18 09:00 08/15/18 09:00 08/15/18 09:00 08/15/18 09:00 Oxygen Delivery Method Room Air Weight: 227 lb 8.273 oz Body Mass Index (BMI) 32.9 Intake and Output for Last 24 Hours 08/13/18 08/14/18 08/15/18 23:59 23:59 23:59 Intake Total 2984 / 2984 1514 / 1514 590 / 590 Output Total 700 / 700 Balance 2284 / 2284 1514 / 1514 590 / 590 General: Alert, Oriented x3, Cooperative, No apparent distress HEENT: Atraumatic, PERRLA, EOMI, Normocephalic Oral: Moist Mucosa Neck: Supple, No JVD Lungs: Clear to auscultation, Normal air movement, No rhonchi, No wheeze, No rales Cardiovascular: Regular rate, Regular Rhythm, Normal S1, Normal S2, No murmurs Abdomen: Soft, Non Tender, Non-Distended, No Hepato-splenomegaly Extremities: No edema, Capillary Refill Less than 3 Seconds Skin: No rashes, No breakdown, Incision - Dressing in place Neurological: Neuro grossly intact, Sensory exam intact to light touch and pain Psych/Mental Status: Normal Affect, Appropriate Microbiology Past 72 Hours 08/11/18 17:28 Incision/Surgical Site Gram Stain - Final 08/11/18 17:28 Incision/Surgical Site Wound Culture - Preliminary No growth-Final to follow 08/11/18 17:28 Incision/Surgical Site Anaerobic Culture - Preliminary No growth in 48 hours. Current Medications Acetaminophen (Tylenol) 650 mg PO Q6H PRN PRN PRN Reason: Mild Pain (1-3)/Temp > 100.7 F Hydrocodone Bitart/Acetaminophen ([place] 5mg-325mg) 2 tablet PO Q4H PRN PRN PRN Reason: Moderate Pain (4-6/10) Last Admin: 08/15/18 07:58 Dose: 2 tablet Al Hydroxide/Mg Hydroxide (Mylanta Ii) 30 ml PO Q6H PRN PRN PRN Reason: Gastric Burning Albuterol Sulfate (Ventolin Aerosols) 2.5 mg INHALATION Q2H PRN PRN PRN Reason: Shortness of Breath/Wheezing Atorvastatin Calcium (Lipitor) 20 mg PO QHS [facility] Last Admin: 08/14/18 21:13 Dose: 20 mg Carvedilol (Coreg) 6.25 mg PO BID [facility] Last Admin: 08/15/18 09:47 Dose: 6.25 mg Clopidogrel Bisulfate (Plavix) 75 mg PO QHS [facility] Last Admin: 08/14/18 21:13 Dose: 75 mg Enoxaparin Sodium (Lovenox) 40 mg SC DAILY@1000 [facility] Last Admin: 08/15/18 09:47 Dose: 40 mg Fluoxetine HCl (Prozac) 40 mg PO QHS [facility] Last Admin: 08/14/18 21:13 Dose: 40 mg Guaifenesin (Robitussin) 20 ml PO Q4H PRN PRN PRN Reason: COUGH Hydralazine HCl (Apresoline Iv) 10 mg IV Q4H PRN PRN PRN Reason: systolic >160 Last Admin: 08/15/18 04:17 Dose: 10 mg Vancomycin HCl 1,500 mg/ (Sodium Chloride) 530 mls @ 250 mls/hr IV Q8H [facility] Last Admin: 08/15/18 07:50 Dose: 250 mls/hr Lactated Ringer's () 1,000 mls @ 15 mls/hr IV .Q48H [facility] Last Admin: 08/13/18 15:11 Dose: 15 mls/hr Lisinopril (Zestril) 5 mg PO QHS [facility] Last Admin: 08/14/18 21:13 Dose: 5 mg Magnesium Hydroxide (Milk Of Magnesia) 30 ml PO DAILY PRN PRN PRN Reason: Constipation Melatonin (Melatonin) 3 mg PO QHS PRN PRN PRN Reason: INSOMNIA Last Admin: 08/13/18 21:32 Dose: 3 mg Meloxicam (Mobic) 15 mg PO Q[facility] Last Admin: 08/14/18 21:13 Dose: 15 mg Morphine Sulfate () 4 mg IV Q3H PRN PRN PRN Reason: Severe pain (7-10/10) Last Admin: 08/14/18 09:23 Dose: 4 mg Nitroglycerin (Nitrostat) 0.4 mg SUBLINGUAL Q5M PRN PRN Reason: CARDIAC/CHEST PAIN Ondansetron HCl (Zofran) 4 mg IV Q8H PRN PRN PRN Reason: NAUSEA/VOMITING Pantoprazole Sodium (Protonix) 40 mg PO QHS [facility] Last Admin: 08/14/18 21:13 Dose: 40 mg Promethazine HCl (Phenergan) 25 mg IM Q6H PRN PRN PRN Reason: Breakthrough nausea/vomiting Ranolazine (Ranexa) 1,000 mg PO BID [facility] Last Admin: 08/15/18 09:47 Dose: 1,000 mg Sodium Chloride () 5 - 15 ml IV UD PRN PRN Reason: SALINE FLUSH Last Admin: 08/15/18 07:50 Dose: 10 ml Medical Necessity - Tobacco Use Smoking Status: Former smoker Assessment/Plan All Active Problems (Last Reviewed 08/11/18 @ 12:54 by Prasanth De lAngel MD) Septic arthritis of knee, left (Acute) 1. Septic joint of left knee -He had a cortisone injection his knee by Dr. Liang on 07/21/2018, which appears to be complicated with a septic joint -He had a washout over Memorial Day weekend and had some interval improvement, and then it worsened. At that time he was discharged on p.o. doxycycline -Had a repeat washout and is tolerating it much better, cultures are negative -Infectious disease was consulted and recommends IV vancomycin for 10 more days and then will be transitioned to p.o. therapy as an outpatient -Will extend cultures at the microbiology lab in case there is a slow-growing organism -We will plan for discharge tomorrow morning since we do not have authorization yet from insurance for his home IV antibiotics 2. Rheumatoid arthritis -He was on Humira within the last 3 months, as well as Arava -Both are held and will need to be held until this infection is resolved 3. CAD status post CABG and stent/HTN/HLD/3 of CVA/bilateral carotid artery disease/obesity -Can continue with his home Plavix -Continue with Crestor, lisinopril, Coreg -BMI of 33, lifestyle modifications were discussed 4. GERD -Stable -Continue with PPI 5. Anxiety/depression -Stable -Continue with Prozac DVT: Lovenox Code Visit Inpatient E&M: 55386 Subs Hosp L2
--- NOTE | 2018-08-15 15:59 | CASEMGMT ---
Call to Molly at [facility] and she states that pt's financials went through and his daily co-pay will be $31.95 until he meets $315 more in out of pocket and then will be covered at 100%. Molly is aware that pt will have 1st dose 08/16/18 am and then be discharged, voices understanding and this RN CM will contact again in the am to verify that supplies will be delivered. Molly is also aware that [facility] are already set up for pt at this time, voices understanding. Pt is aware of all at this time, voices understanding. Mariela at [facility] aware that pt will be discharged 08/16 after 1st dose in the am and [facility]HC will go out to house for 2nd dose and pt/ education, voices understanding. Pt states that will take the day off to be home for same. Pt voices no further questions/concerns/needs at this time. Dr. So aware of all, voices understanding. Contact info for Molly at [facility] [phone]. Info on PICC line insertion faxed to [facility] and [facility] at this time. Scar SIERRA CM
[2018-08-15] MEDS: Clopidogrel Bisulfate 75 MG Tablet PO (21:04)
[2018-08-15] MEDS: Meloxicam 15 MG Tablet PO (21:04)
[2018-08-15] MEDS: Lisinopril 5 MG Tablet PO (21:04)
[2018-08-15] MEDS: FLUoxetine 20 MG Capsule 40 MG PO (21:04)
[2018-08-15] MEDS: Atorvastatin Calcium 20 MG Tablet PO (21:04)
[2018-08-15] MEDS: Pantoprazole Sodium 40 MG Tablet PO (21:04)
[2018-08-16] MEDS: HYDROcodone Bitartrate/Apap 5/325 Tablet PO ×2 (02:13→09:39)
[2018-08-16 02:15] VITALS: BP 173/88; PULSE 71; RESP 16; TEMP 36.8; O2SAT 96
[2018-08-16 02:20] VITALS: PULSE 71
[2018-08-16] MEDS: hydrALAZINE 20 MG/ML Vial 10 MG IV (02:20)
[2018-08-16] MEDS: 0.9% NaCl Peripheral Flush Adult/Peds IV (02:20)
[2018-08-16 03:55] VITALS: BP 153/79; PULSE 74; RESP 16; TEMP 36.9; O2SAT 98
--- NOTE | 2018-08-16 06:21 | PCA ---
08/16/18 0620 discussed weight change with Kat SIERRA
--- NOTE | 2018-08-16 06:57 | DCINST_ITS ---
- Discharge Diagnoses Current Active Problems: Current Active and Chronic Problems (Last Reviewed 08/11/18 @ 12:54 by Prasanth Del Angel MD) Septic arthritis of knee, left (Acute) You will use the following diet at home:: Cardiac Your food should be the consistency of: Regular Your liquids should be the consistency of: Regular/Thin Weight Bearing Status: Weight bearing as tolerated - Left lower extremity Call your doctor if your incision/area has: Increased Pain/ Swelling, Increased Redness, Foul Smelling Discharge Call your doctor if you observe: Fever of 101 or Higher, Shortness of breath, Dizziness, Fainting spells, Swelling in the ankles, Chest pain, Increased palpitations (irregular heartbeat) Allergies/Adverse Reactions: Allergies No Known Allergies Allergy (Verified 08/11/18 11:02) Medications to take at Discharge Carvedilol [Coreg (Beta Marlene)] 6.25 mg PO BID 07/03/14 Lisinopril [Zestril] 5 mg PO QHS 07/03/14 Meloxicam [Mobic] 15 mg PO QHS 07/03/14 Omeprazole [Prilosec] 40 mg PO QHS 07/03/14 nitroglycerin 0.4 mg sublingual tablet 0.4 mg SUBLINGUAL Q5M PRN 05/12/17 oxycodone-acetaminophen 7.5 mg-325 mg tablet 1 tab PO Q8H PRN 02/03/18 ranolazine ER 1,000 mg tablet,extended release,12 hr 1,000 mg PO BID #180 tab 07/05/18 Clopidogrel Bisulfate [Plavix] 75 mg PO QHS 07/29/18 Fluoxetine HCl 40 mg PO QHS 07/29/18 rosuvastatin 10 mg tablet 10 mg PO QHS #90 tab 08/08/18 Vancomycin IV 1,500 mg IV Q8H 10 Days #30 vial 08/15/18 Leflunomide [Arava] 20 mg PO QHS #0 08/16/18 The following prescriptions were given: Vancomycin IV 1,500 mg IV Q8H 10 Days #30 vial Primary Care Physician: Dominick Cueto III, MD [Primary Care Provider] - Please follow up with your Primary Care Physician in: 3-5 days Test Results: Test results from this visit will be discussed in further detail at your follow- up appointment, if applicable. Please Follow Up With: Pattie Rodriguez DO When: 1-2 weeks Please Follow Up With: Pete Shaikh MD - At wound center When: 1 week
[2018-08-16 07:35] VITALS: O2SAT 97
[2018-08-16 07:55] LABS: Vancomycin, Trough Level 19.4 ug/mL (5.0-15.0)
--- NOTE | 2018-08-16 08:24 | PCM.RX.CS ---
Consult Pharmacy has been consulted to manage selected antiobiotic: Vancomycin Type of Consult: Follow-up Suspected Infection: Other Prior Doses of Antibiotics Received/Current Regimen: Medications Vancomycin HCl 1,500 mg/ (Sodium Chloride) 530 mls @ 250 mls/hr IV Q8H [facility] Last Admin: 08/16/18 07:41 Dose: 250 mls/hr Labs: Sodium 142 mmol/L (136-145) 08/14/18 06:44 Potassium 4.1 mmol/L (3.5-5.1) 08/14/18 06:44 Chloride 106 mmol/L (98-107) 08/14/18 06:44 Carbon Dioxide 27.0 mmol/L (21.0-32.0) 08/14/18 06:44 Anion Gap 9 (5-15) 08/14/18 06:44 BUN 8 mg/dL (7-18) 08/14/18 06:44 Creatinine 0.59 mg/dL (0.70-1.30) L 08/14/18 06:44 Est GFR (MDRD) Af Amer 180 mL/min (>60) 08/14/18 06:44 Est GFR (MDRD) Non-Af 149 mL/min (>60) 08/14/18 06:44 BUN/Creatinine Ratio 13.6 RATIO (10-20) 08/14/18 06:44 Glucose 113 mg/dL (74-106) H 08/14/18 06:44 Vancomycin Trough 19.4 ug/mL (5.0-15.0) H 08/16/18 07:00 Microbiology: Microbiology 08/11/18 17:28 Incision/Surgical Site Gram Stain - Final 08/11/18 17:28 Incision/Surgical Site Wound Culture - Preliminary No growth-Final to follow 08/11/18 17:28 Incision/Surgical Site Anaerobic Culture - Preliminary No growth in 48 hours. Weight used for dosin kg Estimated Creatinine Clearance: > 100 Goal Trough: 15-20 mcg/mL Pharmacy Plan for Drug Dosing: Vancomycin trough within range. Since patient is to continue vancomycin at home, trough level is at upper end of range, and is nearing 7 days of therapy, recommend to reduce to 1250mg IV q8h to reduce risk of accumulation and toxicity after 7 days of therapy. D/W Dr Shaikh. Patient is to go home so will not order another trough level. Pharmacy Service will continue to monitor and adjust dosing as required.
[2018-08-16] MEDS: Carvedilol 6.25 MG Tablet PO (09:39)
[2018-08-16] MEDS: Enoxaparin 40 MG/0.4 ML Syringe SC (09:40)
[2018-08-16] MEDS: Ranolazine 500 MG Tablet 1000 MG PO (09:40)
[2018-08-16 09:55] VITALS: BP 139/62; PULSE 67; RESP 18; TEMP 36.7; O2SAT 99
--- NOTE | 2018-08-16 10:26 | PN.ID_ITS ---
Patient Problems: Active and Suspected Problems (Last Reviewed 08/11/18 @ 12:54 by Prasanth Del Angel MD) Septic arthritis of knee, left (Acute) Subjective: Feeling well, no fever, no issues with picc, no n/v/d. - Physical Exam General: Alert, Cooperative, No apparent distress Lungs: Clear to auscultation, Normal air movement Cardiovascular: Regular rate, Regular Rhythm Abdomen: Soft, Non Tender, Non-Distended Skin: Incision - L knee wrapped Vital Signs Temp Pulse Resp BP Pulse Ox 98.1 F 67 18 139/62 H 99 08/16/18 09:55 08/16/18 09:55 08/16/18 09:55 08/16/18 09:55 08/16/18 09:55 Oxygen Delivery Method Room Air Weight: 101.6 kg Body Mass Index (BMI) 32.9 Intake and Output for Last 24 Hours 08/14/18 08/15/18 08/16/18 23:59 23:59 23:59 Intake Total 1514 / 1514 2035 / 2035 398 / 398 Balance 1514 / 1514 5 / 5 398 / 398 Microbiology Past 72 Hours 08/11/18 17:28 Gram Stain - Final Incision/Surgical Site Wound Culture - Preliminary No growth-Final to follow Anaerobic Culture - Final No growth in 5 days. Laboratory Tests Past 24 Hrs 08/16/18 07:00 Vancomycin Trough 19.4 H Medical Necessity - Tobacco Use Smoking Status: Former smoker Route of nutrition/ use of supplements: [] Nutritional Intake: [] IV Site: [] Villeda Catheter: [] - Assessment/Plan Antibiotics: [] Assessment/Plan: [] Active and Suspected Problems (Last Reviewed 08/11/18 @ 12:54 by Prasanth Del Angel MD) Septic arthritis of knee, left (Acute) Recurrent L knee septic arthritis - had I&D 07/[address] Rodriguez for MRSE septic arthritis, discharged on po vanc. Taken back to OR for recurrent sx and heavy purulence on aspiration 08/11/18. Surg cx neg so far. Cont vanc. Ok for d/c home on 10 more days of iv vanc and then plan on po abx. Asked micro lab hold surg cxs for 14 days. ID followup with me at wound center next week. Trough rising, adjusted dose to q12h. Will follow, d/w returned case inspector. Rx written.
--- NOTE | 2018-08-16 10:32 | CASEMGMT ---
Pt's order changed to Vancomycin 1.5Gm IV every [address] Shaikh at this time. New order faxed to [facility] and to [facility] at this time. Both made aware of new order and that pt's infusion will now be at 2000 instead of 1600, voice understanding. Pt is aware at this time. Pt would also like a walker thru [facility] and prefers to take the script with him at this time as he is ready for discharge. Wheeled walker script provided at this time with discharge instructions and Suly at 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 Scar SIERRA CM
--- NOTE | 2018-08-16 10:39 | DS.PCM_ITS ---
Discharge Date and Diagnosis - Problem List Patient Problems: Active and Suspected Problems (Last Reviewed 08/11/18 @ 12:54 by Prasanth Del Angel MD) Septic arthritis of knee, left (Acute) Date of Admission: 08/11/18 Date of Discharge: 08/16/18 - Primary Discharge Diagnosis Active and Suspected Problems (Last Reviewed 08/11/18 @ 12:54 by Prasanth Del Angel MD) Septic arthritis of knee, left (Acute) - Secondary Discharge Diagnosis Chronic Problems (Last Reviewed 08/11/18 @ 12:54 by Prasanth Del Angel MD) Bilateral carotid artery stenosis (Chronic) Atherosclerotic heart disease of [place] coronary artery without angina pectoris (Chronic) CABG X 5 on 05/09, Lt IT to LAD, SVG to RI, 1st Diag. of LAD, SVG to CFX, RCA; drug-eluting stent to RCA, mid RCA, and distal RCA in April 2016; Old myocardial infarction (Chronic) Ischemic cardiomyopathy (Chronic) Aortocoronary bypass status (Chronic) CABG X 5v on 05/09, Lt IT to LAD, SVG to RI, 1st Diag. 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 Huerta [facility] Course and Treatment Imaging Results: Left Knee XR: IMPRESSION: Degenerative arthrosis. This has progressed as compared to prior study. Moderate-sized joint effusion. Consult: [facility] Ortho Operations: - - Report of Operation Date of Procedure: 08/11/18 Pre-Operative Diagnosis: left knee septic joint Post-Operative Diagnosis: same Surgery/Procedure Performed:: salk, open medial parapatella arthrotomy incision drainageirrigation and debridement Type of Anesthesia:: General Anesthesiolo gist: DeHorta,Tunde Specimen's removed: synovial fluid and synovial tissue Drains: deja drain Procedures: None Summary of Care Provided: Per HPI: The patient is a 63 year old M with past medical history is never rheumatoid arthritis who underwent left knee cortisone injection by Dr. Clinton which was later complicated by septic knee. Patient underwent arthrocentesis, synovectomy, irrigation and debridement on 07/30/[address] Rodriguez. Was discharged home on doxycycline. 3 days prior to his admission patient noticed recurrence of the swelling warmth and restricted movement involving the left knee. Patient was seen and evaluated by Dr. Rodriguez; recurrent septic knee was diagnosed sent to the ED and subsequently admitted for further inpatient management. Patient had joint aspiration performed in the office prior to being sent to the ED. Hospital Course: 1. Septic joint of left knee/rheumatoid [id number]-old male with a history of rheumatoid arthritis had a left knee cortisone injection which then became infected. He had his initial washout over Memorial Day weekend and he seemed to be doing well on his p.o. doxycycline however it appears that the infection progressed with swelling and erythema. He had a repeat washout and new cultures obtained which have also far been negative. He was started on IV vancomycin which is what he will be discharged on for the MRSE that he grew initially. He will be on the vancomycin for 10 days and be followed by infectious disease as an outpatient at the wound center. At that time he can possibly be transitioned to oral medication. Also of note infectious disease has asked the micro biology lab to continue to hold his cultures to see if there is any slow-growing organism that has yet to appear. We will plan to discharge home with home health and IV antibiotics, he has been afebrile and without leukocytosis since admission. This plan was discussed with him and he understood and was in agreement with it. Of note he had been on Humira and Arava, discussed with him that he should hold his Humira and Arava until this knee infection has resolved itself. He will follow-up with orthopedic surgery as an outpatient as well to check the wound. 2. CAD status post CABG and stents/HTN/HLD/history of CVA/bilateral carotid artery disease/obesity-this is been stable since he has been here, he has been tolerating his home medications well and has been restarted on his Plavix. Given his BMI of 33, lifestyle modifications were discussed with the patient to help assist in management. 3. His other medical diagnoses were evaluated and his home medications were continued where appropriate Patient Problems: Active and Suspected Problems (Last Reviewed 08/11/18 @ 12:54 by Prasanth Del Angel MD) Septic arthritis of knee, left (Acute) Objective: General: Alert, Oriented x3, Cooperative, No apparent distress HEENT: Atraumatic, PERRLA, EOMI, Normocephalic Oral: Moist Mucosa Neck: Supple, No JVD Lungs: Clear to auscultation, Normal air movement, No rhonchi, No wheeze, No rales Cardiovascular: Regular rate, Regular Rhythm, Normal S1, Normal S2, No murmurs Abdomen: Soft, Non Tender, Non-Distended, No Hepato-splenomegaly Extremities: No edema, Capillary Refill Less than 3 Seconds Skin: No rashes, No breakdown, Incision - Dressing in place Neurological: Neuro grossly intact, Sensory exam intact to light touch and pain Psych/Mental Status: Normal Affect, Appropriate - Physical Exam Vital Signs Temp Pulse Resp BP Pulse Ox 98.1 F 67 18 139/62 H 99 08/16/18 09:55 08/16/18 09:55 08/16/18 09:55 08/16/18 09:55 08/16/18 09:55 Oxygen Delivery Method Room Air Weight: 223 lb 15.834 oz Body Mass Index (BMI) 32.9 Intake and Output for Last 24 Hours 08/14/18 08/15/18 08/16/18 23:59 23:59 23:59 Intake Total 1514 / 1514 2034 / 5 398 / 398 Balance 1514 / 1514 2034 / 2034 398 / 398 Microbiology Past 72 Hours 08/11/18 17:28 Gram Stain - Final Incision/Surgical Site Wound Culture - Preliminary No growth-Final to follow Anaerobic Culture - Final No growth in 5 days. Laboratory Tests Past 24 Hrs 08/16/18 07:00 Vancomycin Trough 19.4 H Weight Bearing Status: Weight bearing as tolerated - Left lower extremity Call your doctor if your incision/area has: Increased Pain/ Swelling, Increased Redness, Foul Smelling Discharge Call your doctor if you observe: Fever of 101 or Higher, Shortness of breath, Dizziness, Fainting spells, Swelling in the ankles, Chest pain, Increased palpitations (irregular heartbeat) Home Medications: Medications to take at Discharge Carvedilol [Coreg (Beta Marlene)] 6.25 mg PO BID 07/03/14 Lisinopril [Zestril] 5 mg PO QHS 07/03/14 Meloxicam [Mobic] 15 mg PO QHS 07/03/14 Omeprazole [Prilosec] 40 mg PO QHS 07/03/14 nitroglycerin 0.4 mg sublingual tablet 0.4 mg SUBLINGUAL Q5M PRN 05/12/17 oxycodone-acetaminophen 7.5 mg-325 mg tablet 1 tab PO Q8H PRN 02/03/18 ranolazine ER 1,000 mg tablet,extended release,12 hr 1,000 mg PO BID #180 tab 07/05/18 Clopidogrel Bisulfate [Plavix] 75 mg PO QHS 07/29/18 Fluoxetine HCl 40 mg PO QHS 07/29/18 rosuvastatin 10 mg tablet 10 mg PO QHS #90 tab 08/08/18 Leflunomide [Arava] 20 mg PO QHS #0 08/16/18 Vancomycin HCl in 5 % Dextrose [Vancomycin 1.5 Gram/250 ml-D5w] 1.5 gm IV Q12H 9 Days #18 plast..bag 08/16/18 Following Prescrptions Were Given to Patient: Vancomycin HCl in 5 % Dextrose [Vancomycin 1.5 Gram/250 ml-D5w] 1.5 gm IV Q12H 9 Days #18 plast..bag Primary Care Physician: Dominick Cueto III, MD [Primary Care Provider] - Please follow up with your Primary Care Physician in: 3-5 days Please Follow Up With: Pattie Rodriguez DO When: 1-2 weeks Please Follow Up With: Pete Shaikh MD When: 1 week Additional Instructions: Obtain outpatient monitoring labs as directed by infectious disease Disposition: Home Minutes spent on discharge:: 35 Patient Condition:: Stable Medical Necessity - Tobacco Use Smoking Status: Former smoker Meaningful Use Info Meaningful Use Diagnoses (Choose all that apply): None applicable Code Visit Inpatient E&M: 50159 Disch Hosp
--- NOTE | 2018-08-17 14:54 | CASEMGMT ---
MARIELA MITTAL Discharge Follow-Up Phone Call. Lace: 13 Strata: 4 Discharge Date: 08/16/18 Adm Dx: Septic Joint Attempted discharge follow-up phone call. No answer. Message left for Mr Charles to return call to SOFTWARE QUALITY AUTOMATION ENGINEERKrista SIERRA CM, if he has any questions about the discharge instructions, medications, or follow-up appts. Phone number for Krista provided. Yina HERRERA RN CM
== END 2018-08-16 10:52 | disposition home or self-care (01) | DRG 489 ==
LOC: ED 12:38 → PCU 13:01
PROVIDERS: Internal Medicine Infectious Disease; Orthopaedic Surgery; Admitting Provider Internal Medicine; Emergency Provider Emergency Medicine; Family Provider Family Medicine; PCP Family Medicine; Visit Provider Family Medicine
PROC: 0SBD0ZZ Excision of Left Knee Joint, Open Approach (ICD-10-PCS; CPT 29870; principal; 2018-08-11 15:10)
DX: M00.9 Pyogenic arthritis, unspecified (principal); M06.9 Rheumatoid arthritis, unspecified; I25.10 Atherosclerotic heart disease of native coronary artery without angina pectoris; E78.5 Hyperlipidemia, unspecified; I10 Essential (primary) hypertension; E66.9 Obesity, unspecified; F32.9 Major depressive disorder, single episode, unspecified; K21.9 Gastro-esophageal reflux disease without esophagitis; Z87.891 Personal history of nicotine dependence; Z86.73 Personal history of transient ischemic attack (TIA), and cerebral infarction without residual deficits; Z95.1 Presence of aortocoronary bypass graft; Z95.5 Presence of coronary angioplasty implant and graft; I25.2 Old myocardial infarction; I25.5 Ischemic cardiomyopathy; Z68.33 Body mass index [BMI] 33.0-33.9, adult
CPT/HCPCS: 36415; 36569; 73560; 80048; 80202; 83735; 85025; 85652; 86140; 87070; 87075; 87205; 88305; 89050; 89051; 97162; 97165; 97530; 99251; 99285; J7030; J7040; J7120; A4216; G0463; J0696; J2405; J3475

== ENCOUNTER 2018-08-22 10:23 | Outpatient (RCR) | payer OTHER, MEDICARE, SELFPAY ==
[2018-08-16 09:01] VITALS: BMI 34.7
[2018-08-22 10:46] LABS: Erythrocyte Sedimentation Rate 45 mm/hr (0-20)
[2018-08-22 10:48] LABS: Hematocrit 35.3 % (40-54); Hemoglobin 11.7 g/dl (13.0-16.5); Mean Corp Hgb Conc 33.1 g/gl (32-36); Mean Corpuscular Hgb 32.9 pg (27.0-32.0); Mean Corpuscular Volume 99.2 fL (80-94); Mean Platelet Vol. 8.7 fl (6.2-12.0); Platelet Count 276 K/mm3 (150-450); RBC Distribution Width CV 14.1 % (11.6-14.6); RBC Distribution Width SD 50.2 fl (35.1-43.9); Red Blood Count 3.56 M/mm3 (4.6-6.2); White Blood Count 6.1 K/mm3 (4.4-11.0)
[2018-08-22 10:49] LABS: Scan Indicated on CBC? Y/N NO
[2018-08-22 10:57] LABS: Anion Gap 11 (5-15); BUN 12 mg/dL (7-18); BUN/Creat Ratio 16.7 RATIO (10-20); Calcium,Total 9.3 mg/dL (8.5-10.1); Chloride 104 mmol/L (98-107); Creatinine, Serum 0.72 mg/dL (0.70-1.30); EST Glomerular Filtration Rate 118 mL/min (>60); Est Glom Filt Rate - Afr Amer 143 mL/min (>60); Glucose 212 mg/dL (74-106); Potassium 3.9 mmol/L (3.5-5.1); Sodium Level 140 mmol/L (136-145)
[2018-08-22 11:21] LABS: Vancomycin, Trough Level 10.4 ug/mL (5.0-15.0)
== END 2018-09-04 23:59 ==
LOC: HHLAB 10:23
PROVIDERS: Family Provider Family Medicine; PCP Family Medicine; Referring Provider Internal Medicine Infectious Disease; Visit Provider Internal Medicine Infectious Disease
DX: M00.869 Arthritis due to other bacteria, unspecified knee (principal)
CPT/HCPCS: 80048; 80202; 85027; 85652

== ENCOUNTER → 2018-08-31 06:32 | Outpatient (CLI) | payer OTHER, MEDICARE, SELFPAY ==
[2018-08-16 09:01] VITALS: BMI 34.7
[2018-08-30 13:26] VITALS: BMI 34.7
[2018-08-31 07:37] LABS: Anion Gap 7 (5-15); BUN 12 mg/dL (7-18); BUN/Creat Ratio 15.5 RATIO (10-20); Calcium,Total 8.9 mg/dL (8.5-10.1); Chloride 106 mmol/L (98-107); Creatinine, Serum 0.78 mg/dL (0.70-1.30); EST Glomerular Filtration Rate 108 mL/min (>60); Est Glom Filt Rate - Afr Amer 131 mL/min (>60); Glucose 131 mg/dL (74-106); Potassium 4.4 mmol/L (3.5-5.1); Sodium Level 137 mmol/L (136-145)
[2018-08-31 07:49] LABS: Erythrocyte Sedimentation Rate 14 mm/hr (0-20)
== END ==
PROVIDERS: Family Provider Family Medicine; PCP Family Medicine; Visit Provider Internal Medicine Infectious Disease
DX: M00.9 Pyogenic arthritis, unspecified (principal)
CPT/HCPCS: 36415; 80048; 85652

== ENCOUNTER → 2018-09-06 08:41 | Outpatient (CLI) | payer OTHER, MEDICARE, SELFPAY ==
[2018-09-06 08:36] VITALS: BMI 34.7
--- NOTE | 2018-09-06 08:42 | RAD_ITS ---
STUDY: X-RAY - LEFT ELBOW REASON FOR EXAM: Male, 63 years old. Posterior elbow pain. TECHNIQUE: 3 view(s) of the elbow. COMPARISON: None. FINDINGS: Moderate arthrosis of the elbow joint with osteophyte formation. Olecranon spur. The soft tissue structures are unremarkable. RAD/Elbow min 3 Views IMPRESSION: Olecranon spur with moderate osteoarthritic changes. Electronically Signed: Riley Stroud MD at 11:51 EDT , Service support ,
[2018-09-06 13:56] LABS: Pathologist Comment May follow
[2018-09-06 14:43] LABS: RBC /Synovial Fluid 0.018 10^6/uL (0); Synovial Fld Mononuclear WBC % 76.7 %; Synovial Fld Polynuclear WBC # 0.094 10^3/ul; Synovial Fld Polynuclear WBC % 23.3 %
[2018-09-06 14:51] LABS: AUTO B FLUID DILUENT BKGD CT WBC <0.1 RBC <0.01 (W<.1,R<.01); CRYSTALS, BODY FLUID See PATH REV
[2018-09-06 14:52] LABS: Source- Body Fluid SYNOVIAL
[2018-09-06 14:54] LABS: Color / Synovial Fluid Bloody (Pale Yellow); Viscosity / Synovial Fluid Sl. Viscous (HIGH)
[2018-09-06 14:55] LABS: Appearance /Synovial Fluid Cloudy (CLEAR); Body Fluid QC Type(s) BF1Q, BF2Q
[2018-09-06 14:57] LABS: Source / Synovial Fluid LEFT ELBOW
[2018-09-06 15:40] LABS: Lymph 12 %; Monocyte /Synovial Fluid 76 %; Neutrophil 8 % (0-25); Other Cell /Synovial Fluid 4 %
[2018-09-07 12:55] LABS: GLUCOSE, SYNOVIAL FLUID 152 mg/dL (.)
[2018-09-07 14:31] LABS: Pathologist Review Reviewed
== END ==
PROVIDERS: Family Provider Family Medicine; PCP Family Medicine; Visit Provider Orthopaedic Surgery
DX: M70.22 Olecranon bursitis, left elbow (principal); I25.10 Atherosclerotic heart disease of native coronary artery without angina pectoris
CPT/HCPCS: 73080; 82945; 84157; 87070; 87075; 87205; 89050; 89051; 89060

== ENCOUNTER → 2018-09-27 17:23 | Outpatient (CLI) | payer OTHER, MEDICARE, SELFPAY ==
[2018-09-27 15:13] VITALS: BMI 34.7
[2018-09-27 17:25] LABS: Pathologist Comment May follow
[2018-09-27 19:03] LABS: Synovial Fld Mononuclear WBC % 71.2 %; Synovial Fld Polynuclear WBC # 0.126 10^3/uL; Synovial Fld Polynuclear WBC % 28.8 %
[2018-09-27 20:03] LABS: AUTO B FLUID DILUENT BKGD CT WBC <0.1 RBC <0.01 (W<.1,R<.01); CRYSTALS, BODY FLUID See PATH REV
[2018-09-27 20:06] LABS: Source / Synovial Fluid LEFT ELBOW; Source- Body Fluid SYNOVIAL
[2018-09-27 20:07] LABS: Appearance /Synovial Fluid Hazy (CLEAR); Body Fluid QC Type(s) BF3Q,BF4Q; Color / Synovial Fluid Red (Pale Yellow); Viscosity / Synovial Fluid Sl. Viscous (HIGH)
[2018-09-27 20:43] LABS: Lymph 24 %; Monocyte /Synovial Fluid 49 %; Neutrophil 8 % (0-25); Other Cell /Synovial Fluid 19 %
[2018-09-28 09:42] LABS: Pathologist Review Reviewed
[2018-09-29 12:47] LABS: GLUCOSE, SYNOVIAL FLUID 59 mg/dL (.); PROTEIN, SYNOVIAL FLUID 4.9 g/dL (.)
== END ==
PROVIDERS: Family Provider Family Medicine; PCP Family Medicine; Visit Provider Orthopaedic Surgery
DX: M70.22 Olecranon bursitis, left elbow (principal); I25.10 Atherosclerotic heart disease of native coronary artery without angina pectoris
CPT/HCPCS: 82945; 84157; 87070; 87075; 87205; 89050; 89051; 89060

== ENCOUNTER → 2018-10-03 06:44 | Outpatient (CLI) | payer OTHER, MEDICARE, SELFPAY ==
[2018-09-06 08:36] VITALS: BMI 34.7
[2018-09-27 15:13] VITALS: BMI 34.7
[2018-10-03 08:21] LABS: AST(SGOT) 20 U/L (15-37); Alanine Aminotransfer ALT/SGPT 23 U/L (16-61); Albumin, Serum 3.3 g/dL (3.2-5.0); Alkaline Phosphatase 153 U/L (45-117); Bilirubin, Direct 0.11 mg/dL (0.00-0.30); Cholesterol 137 mg/dL (200); High Density Lipoprotein 39 mg/dL; Protein, Total 7.3 g/dL (6.4-8.2); Triglycerides 115 mg/dL; Very Low Density Lipoprotein 23 mg/dL (5-40)
[2018-10-04 10:08] LABS: Absolute Lymphocyte Count 2.96 X10^3/uL (0.83-4.51); Absolute Neutrophil Count 9.9 X10^3/uL (2.0-7.7); Basophil# 0.05 X10^3/uL; Basophil% 0.3 % (0-1); Eosinophil# 0.13 X10^3/uL; Eosinophils% 0.9 % (0-5); Hematocrit 39.3 % (40-54); Hemoglobin 12.4 g/dL (13.0-16.5); Lymphocyte # 2.96 X10^3/ul (4.0); Lymphocyte % 19.7 % (19-41); Mean Corp Hgb Conc 31.6 g/dL (32-36); Mean Corpuscular Hgb 32.3 pg (27.0-32.0); Mean Corpuscular Volume 102.3 fL (80-94); Mean Platelet Vol. 9.3 fl (6.2-12.0); Monocyte# 1.86 X10^3/uL; Monocyte% 12.4 % (0-10); NRBC Flagged by Analyzer 0 % (0-5); Neutrophil # 9.93 X10^3/uL (2.7-7.7); Neutrophil % 66.3 % (47-70); POSITIVE DIFFERENTIAL YES; Platelet Count 301 K/mm3 (150-450); RBC Distribution Width CV 14.8 % (11.6-14.6); RBC Distribution Width SD 55.6 fl (35.1-43.9); Red Blood Count 3.84 M/mm3 (4.6-6.2)
[2018-10-04 10:09] LABS: Differential Indicated SCAN CRITERIA MET
[2018-10-04 10:26] LABS: Anion Gap 7 (5-15); BUN 13 mg/dL (7-18); BUN/Creat Ratio 19.8 RATIO (10-20); Calcium,Total 8.6 mg/dL (8.5-10.1); Chloride 107 mmol/L (98-107); Creatinine, Serum 0.66 mg/dL (0.70-1.30); EST Glomerular Filtration Rate 131 mL/min (>60); Est Glom Filt Rate - Afr Amer 159 mL/min (>60); Glucose 120 mg/dL (74-106); Potassium 4.5 mmol/L (3.5-5.1); Sodium Level 140 mmol/L (136-145)
[2018-10-06 15:20] LABS: Pathologist Review Reviewed
== END ==
PROVIDERS: Family Provider Family Medicine; PCP Family Medicine; Referring Provider Nurse Practitioner Family; Visit Provider Internal Medicine Rheumatology
DX: M06.09 Rheumatoid arthritis without rheumatoid factor, multiple sites (principal); M17.0 Bilateral primary osteoarthritis of knee; Q66.7 Congenital pes cavus; M47.892 Other spondylosis, cervical region; M47.897 Other spondylosis, lumbosacral region; I70.90 Unspecified atherosclerosis; E78.5 Hyperlipidemia, unspecified; K21.0 Gastro-esophageal reflux disease with esophagitis; F32.89 Other specified depressive episodes; Z79.899 Other long term (current) drug therapy
CPT/HCPCS: 36415; 80048; 80061; 80076; 82248; 85025

== ENCOUNTER → 2018-10-20 16:31 | Outpatient (CLI) | payer OTHER, MEDICARE, SELFPAY ==
[2018-10-18 08:04] VITALS: BMI 34.2
[2018-10-24 03:06] LABS: QNTFERON TB Mitogen Value > 10.00 IU/mL (.); QNTFERON TB Nil Value 0.02 IU/mL (.); QNTFERON TB1+ Ag Value 0.05 IU/mL (.); QNTFERON TB2+ Ag Value 0.02 IU/mL (.)
[2018-10-24 11:58] LABS: QNTIFERON TB Positive Criteria Negative (Negative)
== END ==
PROVIDERS: Family Provider Family Medicine; PCP Family Medicine; Referring Provider Internal Medicine Rheumatology; Visit Provider Internal Medicine Rheumatology
DX: M06.09 Rheumatoid arthritis without rheumatoid factor, multiple sites (principal); M17.0 Bilateral primary osteoarthritis of knee; Q66.7 Congenital pes cavus; M47.892 Other spondylosis, cervical region; M47.897 Other spondylosis, lumbosacral region; I70.90 Unspecified atherosclerosis; E78.5 Hyperlipidemia, unspecified; K21.0 Gastro-esophageal reflux disease with esophagitis; F32.89 Other specified depressive episodes; Z79.899 Other long term (current) drug therapy
CPT/HCPCS: 36415; 86480

== ENCOUNTER → 2018-12-15 08:13 | Outpatient (CLI) | payer OTHER, MEDICARE, SELFPAY ==
[2018-12-15 08:06] VITALS: BMI 34.2
--- NOTE | 2018-12-15 08:15 | RAD_ITS ---
STUDY: X-RAY - PELVIS AND LEFT HIP REASON FOR EXAM: Recent onset of left posterior hip pain for 3 weeks. TECHNIQUE: 2 views of the pelvis and hip. COMPARISON: None. FINDINGS: There is vascular calcification. There is enthesopathy of the iliac wings bilaterally. Normal bilateral sacroiliac joints and visualized sacrum. Normal bilateral superior and inferior pubic rami. Normal pubic symphysis. Normal bilateral ischial tuberosities. Normal visualized femoral head. There are small marginal osteophytes of the left acetabulum without joint space narrowing. RAD/HIP, UNI W/ Pelvis 2-3 Views IMPRESSION: Mild degenerative changes of the left hip with small marginal osteophytes of the left acetabulum. Electronically Signed: Rodney Holloway MD at 10:19 EDT Tel , Service support ,
== END ==
PROVIDERS: Family Provider Family Medicine; PCP Family Medicine; Referring Provider Orthopaedic Surgery; Visit Provider Orthopaedic Surgery
DX: M25.552 Pain in left hip (principal)
CPT/HCPCS: 73502

== ENCOUNTER → 2019-01-05 08:05 | Outpatient (CLI) | payer OTHER, MEDICARE, SELFPAY ==
[2018-12-15 08:06] VITALS: BMI 34.2
--- NOTE | 2019-01-05 08:14 | RAD_ITS ---
STUDY: X-RAY CHEST REASON FOR EXAM: Male, 63 years old. Productive cough. TECHNIQUE: PA and lateral views of the chest. COMPARISON: Comparison is made with prior examination dated April 28, 2016. FINDINGS: The lungs are clear and expanded. There is no demonstrated pleural abnormality. Sternal cerclage wires and vascular clips are present from a prior sternotomy and coronary artery bypass graft procedure (CABG). Normal mediastinum and eunice. Normal visualized pulmonary arteries. There is atherosclerotic tortuosity of the aortic arch and descending thoracic aorta. There are diffuse degenerative changes of the visualized thoracic spine. Prior left shoulder replacement. There is no demonstrated abnormality of the visualized soft tissue structures of the upper abdomen. RAD/Chest PA and Lateral IMPRESSION: No acute abnormality is seen. Electronically Signed: Mateusz Emmanuel, at 8:58 EDT , Service support ,
== END ==
PROVIDERS: Family Provider Family Medicine; PCP Family Medicine; Referring Provider Physician Assistant; Visit Provider Physician Assistant
DX: J15.9 Unspecified bacterial pneumonia (principal); R05 Cough
CPT/HCPCS: 71046

== ENCOUNTER → 2019-01-09 16:34 | Outpatient (CLI) | payer OTHER, MEDICARE, SELFPAY ==
[2018-12-15 08:06] VITALS: BMI 34.2
[2019-01-09 17:15] LABS: Absolute Lymphocyte Count 4.71 X10^3/uL (0.83-4.51); Absolute Neutrophil Count 5.4 X10^3/uL (2.0-7.7); Basophil# 0.03 X10^3/uL; Basophil% 0.3 % (0-1); Eosinophil# 0.18 X10^3/uL; Eosinophils% 1.5 % (0-5); Hematocrit 41.5 % (40-54); Hemoglobin 13.5 g/dL (13.0-16.5); Lymphocyte # 4.71 X10^3/ul (4.0); Lymphocyte % 39.6 % (19-41); Mean Corp Hgb Conc 32.5 g/dL (32-36); Mean Corpuscular Hgb 32.1 pg (27.0-32.0); Mean Corpuscular Volume 98.6 fL (80-94); Mean Platelet Vol. 8.8 fl (6.2-12.0); Monocyte% 12.6 % (0-10); NRBC Flagged by Analyzer 0 % (0-5); Neutrophil # 5.44 X10^3/uL (2.7-7.7); Neutrophil % 45.7 % (47-70); Platelet Count 199 K/mm3 (150-450); RBC Distribution Width CV 15.7 % (11.6-14.6); RBC Distribution Width SD 56.6 fl (35.1-43.9); Red Blood Count 4.21 M/mm3 (4.6-6.2); White Blood Count 11.9 K/mm3 (4.4-11.0)
[2019-01-09 18:17] LABS: AST(SGOT) 27 U/L (15-37); Alanine Aminotransfer ALT/SGPT 31 U/L (16-61); Albumin, Serum 3.8 g/dL (3.2-5.0); Alkaline Phosphatase 123 U/L (45-117); Anion Gap 5 (5-15); BUN 10 mg/dL (7-18); BUN/Creat Ratio 14.2 RATIO (10-20); Calcium,Total 9.2 mg/dL (8.5-10.1); Chloride 107 mmol/L (98-107); EST Glomerular Filtration Rate 121 mL/min (>60); Est Glom Filt Rate - Afr Amer 146 mL/min (>60); Globulin 3.8 g/dL (2.2-4.2); Glucose 91 mg/dL (74-106); Potassium 3.9 mmol/L (3.5-5.1); Protein, Total 7.6 g/dL (6.4-8.2); Sodium Level 141 mmol/L (136-145)
== END ==
PROVIDERS: Family Provider Family Medicine; PCP Family Medicine; Referring Provider Internal Medicine Rheumatology; Visit Provider Internal Medicine Rheumatology
DX: M06.09 Rheumatoid arthritis without rheumatoid factor, multiple sites (principal); M17.0 Bilateral primary osteoarthritis of knee; M47.892 Other spondylosis, cervical region; M47.897 Other spondylosis, lumbosacral region; Q66.72 Congenital pes cavus, left foot; I70.90 Unspecified atherosclerosis; E78.5 Hyperlipidemia, unspecified; K21.0 Gastro-esophageal reflux disease with esophagitis; F32.89 Other specified depressive episodes; Z79.899 Other long term (current) drug therapy
CPT/HCPCS: 36415; 80053; 85025

== ENCOUNTER → 2019-02-15 16:18 | Outpatient (CLI) | payer OTHER, MEDICARE, SELFPAY ==
[2018-12-15 08:06] VITALS: BMI 34.2
--- NOTE | 2019-02-15 16:29 | MRI_ITS ---
STUDY: MRI CERVICAL SPINE WITHOUT CONTRAST REASON FOR EXAM: Male, 63 years old. Chronic neck pain radiating to left shoulder TECHNIQUE: Standardized fat and water weighted pulse sequences were obtained in the sagittal and axial planes. COMPARISON: January 13, 2018 FINDINGS: Normal foramen magnum and brainstem-cervical cord junction. Normal craniovertebral junction. Normal anterior atlantoaxial articulation. Normal odontoid process. Normal cervical lordosis. Normal vertebral bodies and posterior osseous elements. C2-3: Normal endplates. Normal disc height, signal and morphology. Normal central canal and intervertebral neural foramina. C3-4: Normal endplates. Normal disc height, signal and morphology. Normal central canal and intervertebral neural foramina. C4-5: Normal endplates. Normal disc height, signal and morphology. Normal central canal and intervertebral neural foramina. C5-6: Normal endplates. Normal disc height, signal and minor bulging disc osteophyte complex association with moderate-sized broad-based left posterolateral/foraminal disc/osteophyte protrusion. There is mild narrowing of the the spinal canal on the left with mild impingement upon the cord. There is severe left neuroforaminal stenosis secondary to disc and bony hypertrophy and moderate to severe right neuroforaminal stenosis secondary to bony hypertrophy C6-7: Normal endplates. Normal disc height, signal and tiny central disc protrusion.. Normal central canal and intervertebral neural foramina. C7-T1: Normal endplates. Normal disc height, signal and morphology. Normal central canal and intervertebral neural foramina. Normal cervical cord. Normal visualized soft tissue structures. There has been slight interval progression of spinal stenosis at C5-6 since prior exam. No other significant change MRI/Spine Cervical (Routine) IMPRESSION: Bilateral neuroforaminal stenosis and minor cord impingement on the left at C5-6 greater on the left secondary to minor bulging disc osteophyte complex.. Tiny central disc protrusion at C6-7 Findings as above Electronically Signed: Milan Glynn MD at 22:26 EST , Service support ,
== END ==
PROVIDERS: Family Provider Family Medicine; PCP Family Medicine
DX: M48.02 Spinal stenosis, cervical region (principal)
CPT/HCPCS: 72141

== ENCOUNTER → 2019-04-19 08:08 | Outpatient (CLI) | payer OTHER, MEDICARE, SELFPAY ==
[2018-12-15 08:06] VITALS: BMI 34.2
[2019-04-19 17:10] LABS: Absolute Lymphocyte Count 3.39 X10^3/uL (0.83-4.51); Absolute Neutrophil Count 3.7 X10^3/uL (2.0-7.7); Basophil# 0.03 X10^3/uL; Basophil% 0.4 % (0-1); Eosinophil# 0.15 X10^3/uL; Eosinophils% 1.8 % (0-5); Hematocrit 39.4 % (40-54); Hemoglobin 12.9 g/dL (13.0-16.5); Lymphocyte # 3.39 X10^3/ul (4.0); Lymphocyte % 40.5 % (19-41); Mean Corp Hgb Conc 32.7 g/dL (32-36); Mean Corpuscular Hgb 32.4 pg (27.0-32.0); Mean Platelet Vol. 8.4 fl (6.2-12.0); Monocyte# 1.09 X10^3/uL; NRBC Flagged by Analyzer 0 % (0-5); Neutrophil # 3.67 X10^3/uL (2.7-7.7); Neutrophil % 43.8 % (47-70); Platelet Count 211 K/mm3 (150-450); RBC Distribution Width CV 13.7 % (11.6-14.6); RBC Distribution Width SD 50.4 fl (35.1-43.9); Red Blood Count 3.98 M/mm3 (4.6-6.2); White Blood Count 8.4 K/mm3 (4.4-11.0)
[2019-04-19 17:42] LABS: ALB/GLOB Ratio 1.2 RATIO (0.9-2.4); AST(SGOT) 19 U/L (15-37); Alanine Aminotransfer ALT/SGPT 30 U/L (16-61); Albumin, Serum 3.8 g/dL (3.2-5.0); Alkaline Phosphatase 141 U/L (45-117); Anion Gap 5 (5-15); BUN 13 mg/dL (7-18); BUN/Creat Ratio 16.9 RATIO (10-20); Chloride 106 mmol/L (98-107); Creatinine, Serum 0.77 mg/dL (0.70-1.30); EST Glomerular Filtration Rate 109 mL/min (>60); Est Glom Filt Rate - Afr Amer 132 mL/min (>60); Globulin 3.2 g/dL (2.2-4.2); Glucose 98 mg/dL (74-106); Potassium 3.5 mmol/L (3.5-5.1); Sodium Level 139 mmol/L (136-145)
== END ==
PROVIDERS: Internal Medicine Rheumatology; PCP Family Medicine; Visit Provider Nurse Practitioner Family
DX: M06.09 Rheumatoid arthritis without rheumatoid factor, multiple sites (principal); M17.0 Bilateral primary osteoarthritis of knee; M75.51 Bursitis of right shoulder; I70.90 Unspecified atherosclerosis; E78.5 Hyperlipidemia, unspecified; M47.892 Other spondylosis, cervical region; M47.897 Other spondylosis, lumbosacral region; Q66.70 Congenital pes cavus, unspecified foot; F32.89 Other specified depressive episodes; Z79.899 Other long term (current) drug therapy
CPT/HCPCS: 36415; 80053; 85025

== ENCOUNTER → 2019-06-30 08:19 | Outpatient (CLI) | payer OTHER, MEDICARE, SELFPAY ==
[2019-06-06 13:31] VITALS: BMI 33.3
--- NOTE | 2019-06-30 08:20 | RAD_ITS ---
STUDY: X-RAY - LEFT KNEE REASON FOR EXAM: Male, 64 years old. CHRONIC PAIN, NKI TECHNIQUE: 4 view(s) of the knee. COMPARISON: Comparison is made with prior examination dated August 11, 2018. FINDINGS: Normal visualized distal femur. Normal visualized proximal tibia and fibula. Normal proximal tibiofibular articulation. There is severe degenerative arthrosis of the medial femorotibial compartment with severe joint space narrowing. Normal lateral femorotibial compartment. There is moderate degenerative arthrosis of the patellofemoral articulation. There are atherosclerotic calcifications. RAD/Knee 4 or More Views IMPRESSION: Degenerative arthrosis. Electronically Signed: Mateusz Emmanuel, at 9:15 EDT , Service support ,
--- NOTE | 2019-06-30 08:22 | RAD_ITS ---
STUDY: X-RAY - RIGHT KNEE REASON FOR EXAM: Male, 64 years old. CHRONIC PAIN, NKI TECHNIQUE: 4 view(s) of the knee. COMPARISON: Comparison is made with prior examination dated July 10, 2014. FINDINGS: Normal visualized distal femur. Normal visualized proximal tibia and fibula. Normal proximal tibiofibular articulation. There is severe degenerative arthrosis of the medial femorotibial compartment with severe joint space narrowing. Normal lateral femorotibial compartment. There is moderate degenerative arthrosis of the patellofemoral articulation. There are atherosclerotic calcifications. RAD/Knee 4 or More Views IMPRESSION: Degenerative arthrosis. Electronically Signed: Mateusz Emmanuel, at 9:13 EDT , Service support ,
[2019-06-30 09:55] LABS: Pathologist Comment May follow
[2019-06-30 09:57] LABS: Pathologist Comment May follow
[2019-06-30 11:37] LABS: Synovial Fld Mononuclear WBC % 90.8 %; Synovial Fld Polynuclear WBC # 0.024 10^3/uL; Synovial Fld Polynuclear WBC % 9.2 %
[2019-06-30 11:44] LABS: Synovial Fld Mononuclear WBC % 96.4 %; Synovial Fld Polynuclear WBC # 0.013 10^3/uL; Synovial Fld Polynuclear WBC % 3.6 %
[2019-06-30 13:01] LABS: RBC /Synovial Fluid 0.007 10^6/uL (0)
[2019-06-30 13:15] LABS: AUTO B FLUID DILUENT BKGD CT WBC <0.1 RBC <0.01 (W<.1,R<.01); Appearance /Synovial Fluid Sl Cl (CLEAR); Color / Synovial Fluid Yellow (Pale Yellow); Source / Synovial Fluid LEFT KNEE; Source- Body Fluid SYNOVIAL
[2019-06-30 13:17] LABS: AUTO B FLUID DILUENT BKGD CT WBC <0.1 RBC <0.01 (W<.1,R<.01); Appearance /Synovial Fluid Sl Cl (CLEAR); Color / Synovial Fluid Yellow (Pale Yellow); Source / Synovial Fluid RIGHT KNEE; Source- Body Fluid SYNOVIAL
[2019-06-30 13:25] LABS: Lymph 57 %; Monocyte /Synovial Fluid 21 %; Neutrophil 3 % (0-25); Other Cell /Synovial Fluid 19 %
[2019-06-30 13:26] LABS: Body Fluid QC Type(s) BF1Q,BF2Q; RBC /Synovial Fluid 258 /mm3 (0)
[2019-06-30 13:30] LABS: Body Fluid QC Type(s) BF1Q,BF2Q; Lymph 58 %; Monocyte /Synovial Fluid 19 %; Neutrophil 8 % (0-25); Other Cell /Synovial Fluid 15 %
[2019-07-01 13:21] LABS: GLUCOSE, SYNOVIAL FLUID 186 mg/dL (.)
[2019-07-01 14:00] LABS: GLUCOSE, SYNOVIAL FLUID 183 mg/dL (.)
[2019-07-01 14:01] LABS: PROTEIN, SYNOVIAL FLUID 3.9 g/dL (.)
[2019-07-01 14:04] LABS: PROTEIN, SYNOVIAL FLUID 3.2 g/dL (.)
[2019-07-03 10:51] LABS: Pathologist Review Reviewed
[2019-07-03 10:51] LABS: Pathologist Review Reviewed
== END ==
PROVIDERS: PCP Family Medicine; Referring Provider Orthopaedic Surgery; Visit Provider Orthopaedic Surgery
DX: M17.0 Bilateral primary osteoarthritis of knee (principal); M00.9 Pyogenic arthritis, unspecified; M25.561 Pain in right knee; M25.562 Pain in left knee
CPT/HCPCS: 73564; 82945; 84157; 87070; 87075; 87205; 89050; 89051; 89060

== ENCOUNTER → 2019-07-04 06:12 | Outpatient (CLI) | payer OTHER, MEDICARE, SELFPAY ==
[2019-06-06 13:31] VITALS: BMI 33.3
[2019-06-30 08:23] VITALS: BMI 34.2
[2019-07-04 06:58] LABS: Absolute Lymphocyte Count 2.84 X10^3/uL (0.83-4.51); Basophil# 0.04 X10^3/uL; Basophil% 0.6 % (0-1); Eosinophils% 1.4 % (0-5); Hematocrit 41.7 % (40-54); Hemoglobin 13.9 g/dL (13.0-16.5); Lymphocyte # 2.84 X10^3/ul (4.0); Lymphocyte % 41.2 % (19-41); Mean Corp Hgb Conc 33.3 g/dL (32-36); Mean Platelet Vol. 8.5 fl (6.2-12.0); Monocyte# 0.92 X10^3/uL; Monocyte% 13.3 % (0-10); NRBC Flagged by Analyzer 0 % (0-5); Neutrophil # 2.99 X10^3/uL (2.7-7.7); Neutrophil % 43.4 % (47-70); Platelet Count 176 K/mm3 (150-450); RBC Distribution Width SD 47.3 fl (35.1-43.9); Red Blood Count 4.21 M/mm3 (4.6-6.2); White Blood Count 6.9 K/mm3 (4.4-11.0)
[2019-07-04 07:10] LABS: Partial Thromboplast Time 27.5 Seconds (24.1-36.2); Prothrombin Time (Protime)PT. 12.2 SECONDS (11.7-14.9)
[2019-07-04 07:17] LABS: ALB/GLOB Ratio 1.1 RATIO (0.9-2.4); AST(SGOT) 26 U/L (15-37); Alanine Aminotransfer ALT/SGPT 37 U/L (16-61); Albumin, Serum 3.6 g/dL (3.2-5.0); Alkaline Phosphatase 158 U/L (45-117); Anion Gap 5 (5-15); BUN 14 mg/dL (7-18); BUN/Creat Ratio 18.7 RATIO (10-20); Calcium,Total 8.9 mg/dL (8.5-10.1); Chloride 110 mmol/L (98-107); Creatinine, Serum 0.75 mg/dL (0.70-1.30); EST Glomerular Filtration Rate 113 mL/min (>60); Est Glom Filt Rate - Afr Amer 136 mL/min (>60); Globulin 3.3 g/dL (2.2-4.2); Glucose 168 mg/dL (74-106); Potassium 4.1 mmol/L (3.5-5.1); Protein, Total 6.9 g/dL (6.4-8.2); Sodium Level 140 mmol/L (136-145)
== END ==
LOC: LAB.FUTURE 06:13 → LAB 06:15
PROVIDERS: PCP Family Medicine; Referring Provider Family Medicine; Visit Provider Family Medicine
DX: M06.09 Rheumatoid arthritis without rheumatoid factor, multiple sites (principal); H11.30 Conjunctival hemorrhage, unspecified eye; M17.0 Bilateral primary osteoarthritis of knee; M75.51 Bursitis of right shoulder; Q66.70 Congenital pes cavus, unspecified foot; K21.0 Gastro-esophageal reflux disease with esophagitis; F32.89 Other specified depressive episodes; M47.892 Other spondylosis, cervical region; M47.897 Other spondylosis, lumbosacral region; I70.90 Unspecified atherosclerosis; E78.5 Hyperlipidemia, unspecified; Z79.899 Other long term (current) drug therapy
CPT/HCPCS: 36415; 80053; 85025; 85610; 85730

== ENCOUNTER 2019-10-09 08:00 | Outpatient (RCR) | payer OTHER, MEDICARE, SELFPAY ==
[2018-12-15 08:06] VITALS: BMI 34.2
--- NOTE | 2019-05-10 09:22 | HP.PTEVAL ---
Patient's Visit Information JOSE MUJICA is a 63 year old M referred to Physical Therapy by Dominick Cueto III, MD with a diagnosis of Post op neck pain.. Date of Evaluation: 05/10/19 Physical Therapist: Tunde Dwyer, DPT, OCS, CSCS - Visit Plan Frequency: 3x /Week Duration: 4-6 Weeks Plan: 3x/week for 3-6 weeks for... Please teach machine based LE and UE strength and core strength, add L ankle strength and shoulder external rotation stab strength.Include HS and quad stretching. Hip abduction strength. Progress to I in a gym that patient will join - Subjective Findings: 6 weeks ago had neck fusion due to SEGURA , neck pain, shoulder pain. Had been getting injections for years. This was done by [facility]. Will see him in 3 weeks. He is past the time period of precautions. Wanted PT due to strength deficits in arms. L arm numbness is improving but has not done anything with arms. SEGURA and pain are gone for the most part. Some days gets some arthritic pain remians all over body. Sleep is not great off and on, up alot at night and that is normal for him. Riding stationary bike alot at home. Balance is not grat either, feels veering sometimes without pattern. One fall recently one month ago at [facility] and L ankle gave out and he fell. Has not happened since. Retired from [employer]. Spends day sedentary this time of year. Basic ADLs are done by himself. Lifting will make neck pain worse. Due to weakness he avoids carrying some groceries. H/O L shoulder replacement feb 2018. H/O R knee surgery infection last year with major cleaning out surgery. Ankle may be weak since then. Was getting to be a struggle to wrok outside adn wants to be stronger to tolerate that. Sprained L ankle over the years, it has been weak and not sure how long. - Pain neck pain Pain Intensity (Out of 10): 4 Pain Intensity Range: 4 Comment: constant - Objective Pt not worried about neck pain as much as weakness and need to be more active. Walks with L trendelenberg. Safe adn I. Trasnfers I. Steps reciprocal up with no rail and one rail to descend. Neck AROM 50 ext, 60 B rotation and full felxion without any increased pain. reflexes 2/3 bi and tri and patella and achilles. Sensation LE and UE WNL to gross light touch except L thumb slight deficits. Strength LE hip abd and ext 3+L and 4- R, flexion and adduction B 4L evertors weak. knee flexion and extension 4- B. ankle strength 4/5 except L evertors 3-, VERY WEAK IN EVERTORS ON L...FROM KNEE OR FROM BACK??? PT UNAWARE OF THIS PRIOR. Recommended ankle brace adn picture given. AROM LE WFL except eversion L ankle to neutral only but can hold 10 degrees eversion when placed. Also tightness in quads, ITB, HS and gastroc evident. UE AROM WFL with 135 degrees of elevation L TSA. weakness evident in L ext rotation shoulder at 3, vs 4 on R, flexion L 3+ and R 4-, abduction 4- B. IR 4 B. Elbow and wrist strength symmetrical at 4/5 as are hand intrinsics. VOR walking is safe - Balance Scores Functional Gait Assessment Score: 28 % Disability: 6.6700 CATSIB Score (Max score 120 seconds): 120 - Goals Goal 1:: Pt feel balance and mobility 75% improved and ready to get out safely in garden Goal Time Frame: 4-6 Weeks Goal 2:: Pt I in appropriate ex for LE, UE, core ankle strength adn stretching of LE Goal Time Frame: 4-6 Weeks Goal 3:: pt score <10% disability on neck oswestry Goal Time Frame: 4-6 Weeks Goal 4:: I in use of brace to manage L ankle weakness. Goal Time Frame: 4-6 Weeks - Rehabilitation Potential Physical Therapy Diagnosis: Weakness after numerous surgeries and downtime from neck surgery. Rehabilitation Potential: Fair - Anticipated Interventions Patient/Client Instruction: Educate patient on: Condition, Plan of Care For the Purpose of:: To improve muscle performance and motor function, To increase tolerance to activity/condition/position, To improve ability of physical actions for home/community/work/leisure, To improve gait and locomotor functions Therapeutic Exercise to Include: Strength training, Flexibilty training, Dynamic Lumbar Stabilization, Scapular Strength/Stabilization For the Purpose of:: To improve muscle performance and motor function, To improve gait and locomotor functions, To improve health of tissue, To improve balance Orthotics: Brace Comment: ankle For the Purpose of:: To improve safety with gait Thank you for the opportunity to evaluate your patient. For Medicare and Medicare HMO plans, please review the plan of care and approve it. It will need to be FAXED BACK to us at [phone] for Medicare purposes. For Medicare only, by signing this I certify the plan of care. Please let me know if there are questions or concerns regarding this plan of care. Physician Signature: Date:
--- NOTE | 2019-07-10 08:15 | HP.PTREVAL_ITS ---
Dominick Cueto III, MD, It has been my pleasure to treat JOSE MUJICA over the last 4 visits for Post op neck pain.. Please see the progress note below for an update on the physical therapy plan of care! Subjective: Did not come due to li virus scare. Feels like he has been sore in the necka dn knees and the weather has something to do with it. Saw [facility] and ordered braces for knees bone on bone B. Will need replacement. Worked out in yard yesterday and was sore. To 10/15 after working arms, knees, back. Has been riding bike and using band on arms. Doctor said he needed more weights. Objective/Function: WFL UE AROM although ext rotation shoulders and elevation still weak at 3+ vs 4- elsewhere. C/S aROM rotation 70 and ext 50. Sligt forward head posture. LE strength 4- B knee flexiona dn ext, 4 hip flexion, 3+ hip abd and ext and 4- ankles. Walking well. POC got interrupted due to coronavirus scare and it is appropriate to continue POC as no major changes since that time. Same goals and fair prognosis. Will consider pool therapy if knee pain is limiting or tolerance to land is not great. Plan Plan: Back to initial POC starting over, slow progression to I. 3x/week for 3-6 weeks for... Please teach machine based LE and UE strength and core strength, add L ankle strength and shoulder external rotation stab strength.Include HS and quad stretching. Hip abduction strength. Progress to I in a gym that patient will join Goals Goal 1:: Pt feel balance and mobility 75% improved and ready to get out safely in garden Goal Time Frame: 4-6 Weeks Goal 2:: Pt I in appropriate ex for LE, UE, core ankle strength adn stretching of LE Goal Time Frame: 4-6 Weeks Goal 3:: pt score <10% disability on neck oswestry Goal Time Frame: 4-6 Weeks Goal 4:: I in use of brace to manage L ankle weakness. Goal Time Frame: 4-6 Weeks Anticipated Interventions Patient/Client Instruction: Educate patient on: Condition, Plan of Care For the Purpose of:: To improve muscle performance and motor function, To increase tolerance to activity/condition/position, To improve ability of physical actions for home/community/work/leisure, To improve gait and locomotor functions Therapeutic Exercise to Include: Strength training, Flexibilty training, Dynamic Lumbar Stabilization, Scapular Strength/Stabilization For the Purpose of:: To improve muscle performance and motor function, To improve gait and locomotor functions, To improve health of tissue, To improve balance Orthotics: Brace Comment: ankle For the Purpose of:: To improve safety with gait Please do not hesitate to contact me at [phone] by phone or if you have questions or concerns regarding this new plan of care! Sincerely, Tunde Dwyer, DPT, OCS, CSCS
--- NOTE | 2019-08-04 08:27 | HP.PTREVAL_ITS ---
Dr. Dominick Cueto III, MD, It has been my pleasure to treat JOSE MUJICA over the last 13 visits for Post op neck pain.. Please see the progress note below for an update on the physical therapy plan of care! Subjective: Feeling better. More strength and energy. Don't wobble as much. no falls. Sleeping OK. Pain is under control and not an issue. Bogdan horses in left leg over weekend walking on hillside as he was out walking in [facility] over the weekend. Needs to be stronger for walking further adn L leg still needs strength. L ankle was sprained a long time ago. Has to be careful with ankle srength in yard as it might turn. Uses cane at cabin still due to hillside. No f/u with doctor Objective/Function: 6# L eveersion, 35 R. Ankle eversion L still very weak but Df improving and L eversion has been weak since 2003 according to patient although it feels worse lately. does nto feel ready quite yet to be I on machines but feels he could work there over the next couple weeks. Walks with slight L push off lacking and instability apparent on L ankle. Steps are reciprocal without railing for 6 steps then needs railing due to weakness. Unable to lower self eccentrically safely on steps without rail. IMPROVING OVERALL SUBJECTIVELY AND FUNCTIONALLY. ANKLE STILL WEAK AND QUESTIONABLE PROGNOSIS ON THAT IMPROVING BUT WORTH MORE ATTENTION. pT SHOULD BE ABLE TO WORK TO i IN GYM OVER NEXT 3 WEEKS. FAIR PROGNOSIS WITH THAT. Plan Plan: 3X/WEEK FOR 3-4 WEEKS. pLEASE WORK WITH LIST TO I IN GYM AND PT CAN DO THIS BEFORE OR AFTER SESSION SOON ABLE. FOCUS SESSION THEN ON L ANKLE STRENGTH WITH BAND AND SLS/PROPRIOCEPTIVE EXERCISES AND PROGRESS TO I WITH THOSE AND SQUATS/STEPS TO HGIHER STEP. Goals Goal 1:: Pt feel balance and mobility 75% improved and ready to get out safely in garden Goal Time Frame: 4-6 Weeks Goal Progress: Progressing Goal 2:: Pt I in appropriate ex for LE, UE, core ankle strength adn stretching of LE Goal Time Frame: 4-6 Weeks Goal Progress: Progressing Goal 3:: pt score <10% disability on neck oswestry Goal Time Frame: 4-6 Weeks Goal Progress: Goal Met Goal 4:: I in use of brace to manage L ankle weakness. Goal Time Frame: 4-6 Weeks Goal Progress: once in a while Goal 5:: lefs SCORE AT LEAST 40/80 TO IMPROVE MOBILIITY AND SAFETY Goal Time Frame: 2-4 Weeks Goal Progress: NEW GOAL Goal 6:: I IN GYM EXERCISES ADN HOME ANKLE EXERCISES Goal Time Frame: 2-4 Weeks Goal Progress: NEW GOA Anticipated Interventions Patient/Client Instruction: Educate patient on: Condition, Plan of Care For the Purpose of:: To improve muscle performance and motor function, To increase tolerance to activity/condition/position, To improve ability of physical actions for home/community/work/leisure, To improve gait and locomotor functions Therapeutic Exercise to Include: Strength training, Flexibilty training, Dynamic Lumbar Stabilization, Scapular Strength/Stabilization For the Purpose of:: To improve muscle performance and motor function, To improve gait and locomotor functions, To improve health of tissue, To improve balance Orthotics: Brace Comment: ankle For the Purpose of:: To improve safety with gait Please do not hesitate to contact me at [phone] by phone or Fax: if you have questions or concerns regarding this new plan of care! Sincerely, Tunde Dwyer, DPT, OCS, CSCS
--- NOTE | 2019-08-25 08:32 | HP.PTREVAL ---
Dr. Dominick Cueto III, MD, It has been my pleasure to treat JOSE MUJICA over the last 20 visits for Post op neck pain.. Please see the progress note below for an update on the physical therapy plan of care! Subjective: Getting better. More strength in ankle. Workout in gym is I. Pulling on band with ankel at home. Pain is minimal and all over to 5/10. Sleeping OK. Thinks he could use more therapy and progress. Objective/Function: FGA is good. Strength in L ankle eversion unable to be measured as dynaomometer is out of battery however feels similar to last time at 3-/5, other ankle tests L aat 4/5. LE strength 4+ 5 otherwise. Walking is safe and I but weakness in L evertors puts at risk for ankle turns. Poor confidence in improvement but willing to keep exercising on his own. Will do so before or after his therapy appointment to try FES on evertors. Defintiely a better contraction felt in L ankle evertors with FES on. Plan Plan: 3x/week for 3 weeks . Pt to strengthen himself ankle and general before or after appointment. Therapy should consist of FES to L ankle evertors with active eversion for 15-20 minutes and progression of gym exercises if needed for general function. Pt will let us know if exercises are getting easy. Questionable prognosis on ankle strength improvement but worth trying. Goals Goal 1:: Pt feel balance and mobility 75% improved and ready to get out safely in garden Goal Time Frame: 4-6 Weeks Goal Progress: Progressing Goal 2:: Pt I in appropriate ex for LE, UE, core ankle strength adn stretching of LE Goal Time Frame: 4-6 Weeks Goal Progress: Goal Met Goal 3:: 12# strength L ane evertors to help protect that ankle and improve safety. Goal Time Frame: 2-4 Weeks Goal Progress: NEW GOAL Goal 4:: I in use of brace to manage L ankle weakness. Goal Time Frame: 4-6 Weeks Goal Progress: not compliant. Goal 5:: lefs SCORE AT LEAST 40/80 TO IMPROVE MOBILIITY AND SAFETY Goal Time Frame: 2-4 Weeks Goal Progress: Progressing, approp Goal 6:: I IN GYM EXERCISES ADN HOME ANKLE EXERCISES Goal Time Frame: 2-4 Weeks Goal Progress: Goal Met Anticipated Interventions Patient/Client Instruction: Educate patient on: Condition, Plan of Care For the Purpose of:: To improve muscle performance and motor function, To increase tolerance to activity/condition/position, To improve ability of physical actions for home/community/work/leisure, To improve gait and locomotor functions Therapeutic Exercise to Include: Strength training, Flexibilty training, Dynamic Lumbar Stabilization, Scapular Strength/Stabilization For the Purpose of:: To improve muscle performance and motor function, To improve gait and locomotor functions, To improve health of tissue, To improve balance Orthotics: Brace Comment: ankle For the Purpose of:: To improve safety with gait Please do not hesitate to contact me at [phone] by phone or if you have questions or concerns regarding this new plan of care! Sincerely, Tunde Dwyer, DPT, OCS, CSCS
--- NOTE | 2019-09-22 08:26 | HP.PTREVAL ---
Dr. Dominick Cueto III, MD, It has been my pleasure to treat JOSE MUJICA over the last 27 visits for Post op neck pain.. Please see the progress note below for an update on the physical therapy plan of care! Subjective: Making progress, walking in yard better. says he is walking better. Ankle feels better on uneven surfaces. Very little pain. 5/10 throughout whole body which is much better. Can continue working out on own. Objective/Function: Has L weakness eversion 11.8#, much improved but still tends to invert with steps. Noncompliant with ankle brace. Improving gait and strength. Appropraite to cotninue FES and monitor strength program. Plan Plan: Pt to do workout I and get FES to L ankle evertors for therapy Goals Goal 1:: Pt feel balance and mobility 75% improved and ready to get out safely in garden Goal Time Frame: 4-6 Weeks Goal Progress: Progressing Goal 2:: Pt I in appropriate ex for LE, UE, core ankle strength adn stretching of LE Goal Time Frame: 4-6 Weeks Goal Progress: Goal Met Goal 3:: 12# strength L ane evertors to help protect that ankle and improve safety. Goal Time Frame: 2-4 Weeks Goal Progress: NEW GOAL Goal 4:: I in use of brace to manage L ankle weakness. Goal Time Frame: 4-6 Weeks Goal Progress: not compliant. Goal 5:: lefs SCORE AT LEAST 40/80 TO IMPROVE MOBILIITY AND SAFETY Goal Time Frame: 2-4 Weeks Goal Progress: Progressing, approp Goal 6:: I IN GYM EXERCISES ADN HOME ANKLE EXERCISES Goal Time Frame: 2-4 Weeks Goal Progress: Goal Met Anticipated Interventions Patient/Client Instruction: Educate patient on: Condition, Plan of Care For the Purpose of:: To improve muscle performance and motor function, To increase tolerance to activity/condition/position, To improve ability of physical actions for home/community/work/leisure, To improve gait and locomotor functions Therapeutic Exercise to Include: Strength training, Flexibilty training, Dynamic Lumbar Stabilization, Scapular Strength/Stabilization For the Purpose of:: To improve muscle performance and motor function, To improve gait and locomotor functions, To improve health of tissue, To improve balance Orthotics: Brace Comment: ankle For the Purpose of:: To improve safety with gait Please do not hesitate to contact me at [phone] by phone or if you have questions or concerns regarding this new plan of care! Sincerely, Tunde Dwyer, DPT, OCS, CSCS
--- NOTE | 2019-11-28 10:13 | HP.PTDCNRP_ITS ---
JOSE MUJICA was seen in my office for initial evaluation on 05/10/19. The following Plan of Care was established for this patient: Initial Frequency: 3x /Week Initial Duration: 4-6 Weeks Patient/Client Instruction: Educate patient on: Condition, Plan of Care For the Purpose of:: To improve muscle performance and motor function, To increase tolerance to activity/condition/position, To improve ability of physical actions for home/community/work/leisure, To improve gait and locomotor functions Therapeutic Exercise to Include: Strength training, Flexibilty training, Dynamic Lumbar Stabilization, Scapular Strength/Stabilization For the Purpose of:: To improve muscle performance and motor function, To improve gait and locomotor functions, To improve health of tissue, To improve balance Orthotics: Brace Comment: ankle For the Purpose of:: To improve safety with gait This patient was last seen in our office 10/09/19. Pertinent comments regarding their Physical therapy will appear below: Pt seen 33 visits and cancelled last two visits neglecting to reschedule. At this point, it has been over 6 weeks and I will discontinue due to no nattendance. At this point I will be discontinuing this patient from physical therapy. I would be happy to see this patient again in the future if found appropriate by the physician. Thank you! Tunde Dwyer, DPT, OCS, CSCS
== END 2019-10-09 19:00 | disposition home or self-care (01) ==
LOC: PT 08:00
PROVIDERS: PCP Family Medicine; Referring Provider Family Medicine; Visit Provider Family Medicine
DX: M54.2 Cervicalgia (principal)
CPT/HCPCS: 97014; 97110; 97162; 97164; G0283

== ENCOUNTER → 2019-10-09 08:41 | Outpatient (CLI) | payer OTHER, MEDICARE, SELFPAY ==
[2019-06-30 08:23] VITALS: BMI 34.2
[2019-10-09 09:48] LABS: Absolute Neutrophil Count 3.1 X10^3/uL (2.0-7.7); Basophil# 0.04 X10^3/uL; Basophil% 0.6 % (0-1); Eosinophil# 0.06 X10^3/uL; Eosinophils% 0.9 % (0-5); Hemoglobin 14.9 g/dL (13.0-16.5); Lymphocyte % 39.6 % (19-41); Mean Corp Hgb Conc 33.1 g/dL (32-36); Mean Corpuscular Hgb 32.2 pg (27.0-32.0); Mean Corpuscular Volume 97.2 fL (80-94); Monocyte# 0.79 X10^3/uL; NRBC Flagged by Analyzer 0 % (0-5); Neutrophil # 3.06 X10^3/uL (2.7-7.7); Neutrophil % 46.6 % (47-70); Platelet Count 180 K/mm3 (150-450); RBC Distribution Width CV 13.2 % (11.6-14.6); RBC Distribution Width SD 47.4 fl (35.1-43.9); Red Blood Count 4.63 M/mm3 (4.6-6.2); White Blood Count 6.6 K/mm3 (4.4-11.0)
[2019-10-09 10:40] LABS: ALB/GLOB Ratio 1.2 RATIO (0.9-2.4); AST(SGOT) 25 U/L (15-37); Alanine Aminotransfer ALT/SGPT 34 U/L (16-61); Albumin, Serum 3.8 g/dL (3.2-5.0); Alkaline Phosphatase 194 U/L (45-117); Anion Gap 8 (5-15); BUN 11 mg/dL (7-18); BUN/Creat Ratio 12.3 RATIO (10-20); Calcium,Total 9.1 mg/dL (8.5-10.1); Chloride 102 mmol/L (98-107); Creatinine, Serum 0.89 mg/dL (0.70-1.30); EST Glomerular Filtration Rate 92 mL/min (>60); Est Glom Filt Rate - Afr Amer 111 mL/min (>60); Globulin 3.3 g/dL (2.2-4.2); Glucose 352 mg/dL (74-106); Protein, Total 7.1 g/dL (6.4-8.2); Sodium Level 135 mmol/L (136-145)
== END ==
PROVIDERS: PCP Family Medicine; Visit Provider Internal Medicine Rheumatology
DX: M06.09 Rheumatoid arthritis without rheumatoid factor, multiple sites (principal); M17.0 Bilateral primary osteoarthritis of knee; M75.51 Bursitis of right shoulder; M47.897 Other spondylosis, lumbosacral region; Q66.70 Congenital pes cavus, unspecified foot; F32.89 Other specified depressive episodes; M47.892 Other spondylosis, cervical region; E78.5 Hyperlipidemia, unspecified; I70.90 Unspecified atherosclerosis; K21.0 Gastro-esophageal reflux disease with esophagitis; Z79.899 Other long term (current) drug therapy
CPT/HCPCS: 36415; 80053; 85025

== ENCOUNTER → 2019-10-24 06:55 | Outpatient (CLI) | payer OTHER, MEDICARE, SELFPAY ==
[2019-06-30 08:23] VITALS: BMI 34.2
[2019-10-24 08:04] LABS: Hemoglobin A1c 10.4 % (3.8-5.6)
[2019-10-24 08:09] LABS: Cholesterol 181 mg/dL (200); GGTP 42 U/L (15-85); High Density Lipoprotein 33 mg/dL; PSA,Total - Annual Screen 0.65 ng/mL (0.00-4.00); Triglycerides 304 mg/dL; Very Low Density Lipoprotein 61 mg/dL (5-40)
== END ==
LOC: LAB.FUTURE 07:00 → LAB 07:01
PROVIDERS: PCP Family Medicine; Referring Provider Family Medicine; Visit Provider Family Medicine
DX: I25.10 Atherosclerotic heart disease of native coronary artery without angina pectoris (principal); E11.9 Type 2 diabetes mellitus without complications; I10 Essential (primary) hypertension; E78.5 Hyperlipidemia, unspecified; R79.89 Other specified abnormal findings of blood chemistry; N40.0 Benign prostatic hyperplasia without lower urinary tract symptoms; Z13.220 Encounter for screening for lipoid disorders; Z12.5 Encounter for screening for malignant neoplasm of prostate
CPT/HCPCS: 36415; 80061; 82977; 83036; 84153; G0103

== ENCOUNTER → 2020-01-05 14:49 | Outpatient (CLI) | payer OTHER, MEDICARE, SELFPAY ==
[2019-06-30 08:23] VITALS: BMI 34.2
[2020-01-05 17:28] LABS: Absolute Lymphocyte Count 3.46 X10^3/uL (0.83-4.51); Absolute Neutrophil Count 7.5 X10^3/uL (2.0-7.7); Basophil# 0.03 X10^3/uL; Basophil% 0.2 % (0-1); Eosinophil# 0.11 X10^3/uL; Eosinophils% 0.9 % (0-5); Hematocrit 42.4 % (40-54); Hemoglobin 13.8 g/dL (13.0-16.5); Lymphocyte # 3.46 X10^3/ul (4.0); Mean Corp Hgb Conc 32.5 g/dL (32-36); Mean Corpuscular Hgb 32.5 pg (27.0-32.0); Mean Corpuscular Volume 99.8 fL (80-94); Mean Platelet Vol. 8.7 fl (6.2-12.0); Monocyte# 1.17 X10^3/uL; Monocyte% 9.5 % (0-10); NRBC Flagged by Analyzer 0 % (0-5); Neutrophil # 7.51 X10^3/uL (2.7-7.7); Neutrophil % 60.9 % (47-70); Platelet Count 213 K/mm3 (150-450); RBC Distribution Width CV 13.2 % (11.6-14.6); RBC Distribution Width SD 48.3 fl (35.1-43.9); Red Blood Count 4.25 M/mm3 (4.6-6.2); White Blood Count 12.3 K/mm3 (4.4-11.0)
[2020-01-05 18:16] LABS: ALB/GLOB Ratio 1.1 RATIO (0.9-2.4); AST(SGOT) 23 U/L (15-37); Alanine Aminotransfer ALT/SGPT 35 U/L (16-61); Albumin, Serum 3.6 g/dL (3.2-5.0); Alkaline Phosphatase 129 U/L (45-117); Anion Gap 8 (5-15); BUN 15 mg/dL (7-18); BUN/Creat Ratio 20.9 RATIO (10-20); Calcium,Total 8.9 mg/dL (8.5-10.1); Chloride 105 mmol/L (98-107); Creatinine, Serum 0.72 mg/dL (0.70-1.30); EST Glomerular Filtration Rate 118 mL/min (>60); Est Glom Filt Rate - Afr Amer 142 mL/min (>60); Globulin 3.2 g/dL (2.2-4.2); Glucose 158 mg/dL (74-106); Potassium 3.2 mmol/L (3.5-5.1); Protein, Total 6.8 g/dL (6.4-8.2); Sodium Level 139 mmol/L (136-145)
== END ==
PROVIDERS: PCP Family Medicine; Referring Provider Internal Medicine Rheumatology; Visit Provider Internal Medicine Rheumatology
DX: M06.09 Rheumatoid arthritis without rheumatoid factor, multiple sites (principal); M17.0 Bilateral primary osteoarthritis of knee; M75.51 Bursitis of right shoulder; Q66.72 Congenital pes cavus, left foot; M47.897 Other spondylosis, lumbosacral region; I70.90 Unspecified atherosclerosis; E78.5 Hyperlipidemia, unspecified; K21.00 Gastro-esophageal reflux disease with esophagitis, without bleeding; Z79.899 Other long term (current) drug therapy
CPT/HCPCS: 36415; 80053; 85025

== ENCOUNTER → 2020-01-22 15:52 | Outpatient (CLI) | payer OTHER, MEDICARE, SELFPAY ==
[2019-06-30 08:23] VITALS: BMI 34.2
--- NOTE | 2020-01-22 16:10 | RAD_ITS ---
HISTORY: left hip pain for about 1 year. no known injury. COMPARISON: None FINDINGS: # of images incl. paperwork: 4 XR Femur Min 2 Views: Left BONE AND JOINTS: No acute fracture or subluxation. Degenerative changes are seen at the knee with medial greater than lateral joint space narrowing. There is also patellofemoral joint space narrowing. Enthesophytes are seen at the insertion of the quadriceps tendon on the patella. SOFT TISSUES: Atherosclerotic vascular disease. There are surgical clips seen at the medial aspect of the distal thigh and proximal lower leg small suprapatellar joint effusion No radiopaque foreign body. RAD/Femur Min 2 Views IMPRESSION: No acute pathology degenerative changes of the knee as discussed Small suprapatellar joint effusion Spurring is also seen at the left acetabulum. at 0316 Reported and signed by: Jahaira Gibson DO Electronically Signed: Jahaira Gibson DO at 3:15 EST Tel , Service support ,
== END ==
PROVIDERS: PCP Family Medicine; Referring Provider Family Medicine; Visit Provider Family Medicine
DX: M16.12 Unilateral primary osteoarthritis, left hip (principal)
CPT/HCPCS: 73552

== ENCOUNTER → 2020-02-28 14:12 | Outpatient (CLI) | payer OTHER, MEDICARE, SELFPAY ==
[2020-02-22 08:21] VITALS: BMI 32.6
--- NOTE | 2020-02-28 14:12 | MRI_ITS ---
HISTORY: back pain, falling, drop foot left, prev lumbar surgery COMPARISON: 05/06/2017 TECHNIQUE: Multiplanar, multisequence MRI of the lumbar spine without IV contrast. FINDINGS: Anterior wedging of L1 appears similar. No bone marrow edema or suspicious bone lesion. Conus ends at T12-L1. Mild discogenic degenerative changes of the lower thoracic spine without canal or foraminal stenosis. L1-L2: Mild disc space narrowing and disc bulging. Facet arthropathy. Mild canal and foraminal stenosis. L2-L3: Mild disc bulging with anterior osteophyte formation. Facet arthropathy and ligamentous hypertrophy. Mild central canal stenosis. Moderate right and mild left foraminal stenosis. L3-L4: Mild disc space narrowing and disc bulging. Facet and ligament hypertrophy. Mild to moderate central canal stenosis and bilateral foraminal narrowing. L4-L5: Minimal disc bulging. Facet hypertrophy. No significant canal or foraminal stenosis. Laminectomies with posterior spinal fusion. L5-S1: Minimal disc bulging. Facet arthropathy. No significant canal or foraminal narrowing. MRI/Spine Lumbar (Routine) IMPRESSION: Lumbar spondylosis and postoperative changes, as detailed. Degenerative changes have increased compared to previous. at 0736 Reported and signed by: Kristy Mahan MD Electronically Signed: Kristy Mahan MD at 7:36 EST Tel , Service support ,
== END ==
PROVIDERS: PCP Family Medicine; Referring Provider Orthopaedic Surgery; Visit Provider Orthopaedic Surgery
DX: M54.5 Low back pain (principal); R26.81 Unsteadiness on feet
CPT/HCPCS: 72148

== ENCOUNTER → 2020-03-11 | Outpatient (CLI) | payer OTHER, MEDICARE, SELFPAY ==
[2020-03-11 14:33] VITALS: BMI 31.6
== END | disposition home or self-care (01) ==
LOC: LABSPEC 18:06
PROVIDERS: PCP Family Medicine; Visit Provider Physician Assistant
DX: Z20.828 Contact with and (suspected) exposure to other viral communicable diseases (principal)
CPT/HCPCS: 87635; U0005; U0003

== ENCOUNTER → 2020-03-21 06:57 | Outpatient (CLI) | payer OTHER, MEDICARE, SELFPAY ==
[2019-06-06 13:31] VITALS: BMI 33.3
[2020-03-11 14:33] VITALS: BMI 31.6
[2020-03-21 07:13] LABS: Absolute Lymphocyte Count 2.38 X10^3/uL (0.83-4.51); Absolute Neutrophil Count 3.4 X10^3/uL (2.0-7.7); Basophil# 0.03 X10^3/uL; Basophil% 0.4 % (0-1); Eosinophil# 0.06 X10^3/uL; Eosinophils% 0.9 % (0-5); Hematocrit 40.2 % (40-54); Hemoglobin 13.2 g/dL (13.0-16.5); Lymphocyte # 2.38 X10^3/ul (4.0); Lymphocyte % 35.4 % (19-41); Mean Corp Hgb Conc 32.8 g/dL (32-36); Mean Corpuscular Hgb 32.4 pg (27.0-32.0); Mean Corpuscular Volume 98.8 fL (80-94); Monocyte# 0.79 X10^3/uL; Monocyte% 11.7 % (0-10); NRBC Flagged by Analyzer 0 % (0-5); Neutrophil # 3.41 X10^3/uL (2.7-7.7); Neutrophil % 50.7 % (47-70); Platelet Count 187 K/mm3 (150-450); RBC Distribution Width CV 13.4 % (11.6-14.6); RBC Distribution Width SD 48.5 fl (35.1-43.9); Red Blood Count 4.07 M/mm3 (4.6-6.2); White Blood Count 6.7 K/mm3 (4.4-11.0)
[2020-03-21 07:43] LABS: ALB/GLOB Ratio 1.2 RATIO (0.9-2.4); AST(SGOT) 14 U/L (15-37); Alanine Aminotransfer ALT/SGPT 35 U/L (16-61); Albumin, Serum 3.6 g/dL (3.2-5.0); Alkaline Phosphatase 142 U/L (45-117); Anion Gap 3 (5-15); BUN 18 mg/dL (7-18); BUN/Creat Ratio 27.9 RATIO (10-20); Bilirubin, Direct 0.15 mg/dL (0.00-0.30); Chloride 110 mmol/L (98-107); Cholesterol 134 mg/dL (200); Creatinine, Serum 0.65 mg/dL (0.70-1.30); EST Glomerular Filtration Rate 133 mL/min (>60); Est Glom Filt Rate - Afr Amer 161 mL/min (>60); Globulin 3.1 g/dL (2.2-4.2); Glucose 117 mg/dL (74-106); High Density Lipoprotein 50 mg/dL; Potassium 4.3 mmol/L (3.5-5.1); Protein, Total 6.7 g/dL (6.4-8.2); Sodium Level 140 mmol/L (136-145); Triglycerides 124 mg/dL; Very Low Density Lipoprotein 25 mg/dL (5-40)
== END ==
PROVIDERS: PCP Family Medicine; Referring Provider Nurse Practitioner Family; Visit Provider Nurse Practitioner Family
DX: E78.5 Hyperlipidemia, unspecified (principal); M06.00 Rheumatoid arthritis without rheumatoid factor, unspecified site; M17.0 Bilateral primary osteoarthritis of knee; M75.51 Bursitis of right shoulder; K21.00 Gastro-esophageal reflux disease with esophagitis, without bleeding; Q66.70 Congenital pes cavus, unspecified foot; F32.89 Other specified depressive episodes; M47.892 Other spondylosis, cervical region; M47.897 Other spondylosis, lumbosacral region; I70.90 Unspecified atherosclerosis; Z79.899 Other long term (current) drug therapy
CPT/HCPCS: 36415; 80053; 80061; 82248; 85025

== ENCOUNTER → 2020-04-01 07:20 | Outpatient (CLI) | payer OTHER, MEDICARE, SELFPAY ==
[2020-02-22 08:21] VITALS: BMI 32.6
[2020-03-22 11:02] VITALS: BMI 32.3
--- NOTE | 2020-04-01 10:34 | NEURO_ITS ---
NCS and/or EMG Patient Report Ordering Doctor: Pattie Rodriguez DATE OF SERVICE: 04/01/20 Indication: Left lower extremity weakness. Patient reports an injury ~15 years ago where his left ankle was forcefully inverted. After that event he had significant pain and sensory changes (unclear as to distribution). He was then found to have lumbar stenosis and underwent a decompression and fusion. Sensation has improved, but he continues to have weakness in the foot/ankle. He states that his foot always wants to turn in. Evaluate for peripheral nerve injury and/or lumbar stenosis. Findings: Nerve conduction studies were performed in the right and left lower extremity. The right peroneal motor study recording the extensor digitorum brevis showed a normal amplitude, normal distal latency and normal conduction velocity. No conduction block or focal slowing was present across the fibular neck. The right tibial motor study recording the abductor hallucis brevis showed a normal amplitude, normal distal latency and normal conduction velocity. Right sural sensory response showed a normal amplitude and conduction velocity. Right superficial peroneal sensory response showed a normal amplitude and borderline conduction velocity. Right medial plantar sensory response showed a normal amplitude and conduction velocity. The left peroneal motor study recording the extensor digitorum brevis showed a markedly reduced amplitude, prolonged distal latency and slowed conduction velocity. No conduction block or focal slowing was present across the fibular neck. The left peroneal motor study recording the tibialis anterior showed a normal amplitude, normal distal latency and mildly slowed conduction velocity. N o conduction block or focal slowing was present across the fibular neck. The left tibial motor study recording the abductor hallucis brevis showed a normal amplitude, normal distal latency and normal conduction velocity. Left sural sensory response showed a normal amplitude and borderline conduction velocity. Left superficial peroneal sensory response showed a normal amplitude and conduction velocity. Left medial plantar sensory response showed a normal amplitude and conduction velocity. Needle EMG of the left lower extremity muscles was performed. The lumbar paraspinal muscles were not examined due to the patient's prior history of low back surgery. No denervation was present in any muscle. Insertional activity was increased in the tibialis anterior muscle. Motor units in the tibialis anterior, peroneus longus, biceps femoris (short head), biceps femoris (long head) and tensor fasica victor hugo muscles were large amplitude, long duration with reduced recruitment. Motor units in the medial gastrocnemius muscle were mildly large amplitude and long duration with normal phases and normal recruitment. In the vastus medialis, motor unit morphology, activation and recruitment patterns were normal. Impression: This is an abnormal study. There is electrophysiologic evidence of chronic, left L5/S1 radiculopathy. The lesion appears to preferentially affect fibers destined to the peroneal nerve territory. Alternatively, a superimposed chronic left peroneal neuropathy cannot be entirely excluded by this study. Jeremias Hatfield D.O.
== END ==
PROVIDERS: PCP Family Medicine; Referring Provider Orthopaedic Surgery; Visit Provider Orthopaedic Surgery
DX: R26.81 Unsteadiness on feet (principal); M25.572 Pain in left ankle and joints of left foot; M54.10 Radiculopathy, site unspecified
CPT/HCPCS: 95886; 95912

== ENCOUNTER 2020-05-09 17:20 | Outpatient (RCR) | payer OTHER, MEDICARE, SELFPAY ==
[2020-03-22 11:02] VITALS: BMI 32.3
[2020-05-09] MEDS: COVID-19 VACC, MRNA(PFIZER)/PF 30 MCG/0.3 ML SYRINGE IM (17:05)
[2020-05-30] MEDS: COVID-19 VACC, MRNA(PFIZER)/PF 30 MCG/0.3 ML SYRINGE IM (07:13)
== END 2020-05-09 18:00 | disposition home or self-care (01) ==
LOC: IMMUN 17:20
PROVIDERS: PCP Family Medicine; Visit Provider Family Medicine
DX: Z23 Encounter for immunization (principal)
CPT/HCPCS: 0001A; 0002A; 91300

== ENCOUNTER → 2020-06-06 16:20 | Outpatient (CLI) | payer OTHER, MEDICARE, SELFPAY ==
[2020-03-22 11:02] VITALS: BMI 32.3
[2020-06-06 17:06] LABS: Absolute Lymphocyte Count 2.69 X10^3/uL (0.83-4.51); Absolute Neutrophil Count 3.2 X10^3/uL (2.0-7.7); Basophil# 0.03 X10^3/uL; Basophil% 0.4 % (0-1); Eosinophil# 0.09 X10^3/uL; Eosinophils% 1.3 % (0-5); Hematocrit 42.2 % (40-54); Hemoglobin 13.5 g/dL (13.0-16.5); Lymphocyte # 2.69 X10^3/ul (4.0); Lymphocyte % 38.7 % (19-41); Mean Corpuscular Hgb 33.3 pg (27.0-32.0); Mean Corpuscular Volume 103.9 fL (80-94); Mean Platelet Vol. 8.5 fl (6.2-12.0); Monocyte# 0.91 X10^3/uL; Monocyte% 13.1 % (0-10); NRBC Flagged by Analyzer 0 % (0-5); Neutrophil % 46.1 % (47-70); Platelet Count 206 K/mm3 (150-450); RBC Distribution Width CV 13.4 % (11.6-14.6); RBC Distribution Width SD 51.5 fl (35.1-43.9); Red Blood Count 4.06 M/mm3 (4.6-6.2)
[2020-06-06 17:59] LABS: ALB/GLOB Ratio 1.1 RATIO (0.9-2.4); AST(SGOT) 23 U/L (15-37); Alanine Aminotransfer ALT/SGPT 38 U/L (16-61); Albumin, Serum 3.7 g/dL (3.2-5.0); Alkaline Phosphatase 104 U/L (45-117); Anion Gap 1 (5-15); BUN 15 mg/dL (7-18); Calcium,Total 8.8 mg/dL (8.5-10.1); Chloride 108 mmol/L (98-107); Creatinine, Serum 0.65 mg/dL (0.70-1.30); EST Glomerular Filtration Rate 132 mL/min (>60); Est Glom Filt Rate - Afr Amer 159 mL/min (>60); Globulin 3.3 g/dL (2.2-4.2); Glucose 104 mg/dL (74-106); Potassium 3.9 mmol/L (3.5-5.1); Sodium Level 138 mmol/L (136-145)
== END ==
PROVIDERS: PCP Family Medicine; Referring Provider Internal Medicine Rheumatology; Visit Provider Internal Medicine Rheumatology
DX: M06.00 Rheumatoid arthritis without rheumatoid factor, unspecified site (principal); Z79.899 Other long term (current) drug therapy; M17.0 Bilateral primary osteoarthritis of knee; M75.51 Bursitis of right shoulder; K21.00 Gastro-esophageal reflux disease with esophagitis, without bleeding; M47.892 Other spondylosis, cervical region; M47.897 Other spondylosis, lumbosacral region; I70.0 Atherosclerosis of aorta; E78.5 Hyperlipidemia, unspecified
CPT/HCPCS: 36415; 80053; 85025

== ENCOUNTER → 2020-09-16 16:20 | Outpatient (CLI) | payer OTHER, MEDICARE, SELFPAY ==
[2020-03-22 11:02] VITALS: BMI 32.3
[2020-09-16 17:17] LABS: Absolute Lymphocyte Count 3.26 X10^3/uL (0.83-4.51); Absolute Neutrophil Count 4.5 X10^3/uL (2.0-7.7); Basophil# 0.04 X10^3/uL; Basophil% 0.5 % (0-1); Eosinophil# 0.11 X10^3/uL; Eosinophils% 1.2 % (0-5); Hematocrit 41.4 % (40-54); Hemoglobin 13.9 g/dL (13.0-16.5); Lymphocyte # 3.26 X10^3/ul (0.83-4.51); Lymphocyte % 36.9 % (19-41); Mean Corp Hgb Conc 33.6 g/dL (32-36); Mean Corpuscular Hgb 33.5 pg (27.0-32.0); Mean Corpuscular Volume 99.8 fL (80-94); Mean Platelet Vol. 8.4 fl (6.2-12.0); Monocyte# 0.91 X10^3/uL; Monocyte% 10.3 % (0-10); NRBC Flagged by Analyzer 0 % (0-5); Neutrophil # 4.47 X10^3/uL (2.7-7.7); Neutrophil % 50.5 % (47-70); Platelet Count 216 K/mm3 (150-450); RBC Distribution Width CV 13.4 % (11.6-14.6); RBC Distribution Width SD 49.3 fl (35.1-43.9); Red Blood Count 4.15 M/mm3 (4.6-6.2); White Blood Count 8.8 K/mm3 (4.4-11.0)
[2020-09-16 17:54] LABS: ALB/GLOB Ratio 1.2 RATIO (0.9-2.4); AST(SGOT) 21 U/L (15-37); Alanine Aminotransfer ALT/SGPT 34 U/L (16-61); Albumin, Serum 3.8 g/dL (3.2-5.0); Alkaline Phosphatase 122 U/L (45-117); Anion Gap 7 (5-15); BUN 14 mg/dL (7-18); BUN/Creat Ratio 19.5 RATIO (10-20); Calcium,Total 9.3 mg/dL (8.5-10.1); Chloride 103 mmol/L (98-107); Creatinine, Serum 0.72 mg/dL (0.70-1.30); EST Glomerular Filtration Rate 117 mL/min (>60); Est Glom Filt Rate - Afr Amer 142 mL/min (>60); Globulin 3.2 g/dL (2.2-4.2); Glucose 108 mg/dL (74-106); Potassium 3.6 mmol/L (3.5-5.1); Sodium Level 138 mmol/L (136-145)
== END ==
PROVIDERS: PCP Family Medicine; Referring Provider Internal Medicine Rheumatology; Visit Provider Internal Medicine Rheumatology
DX: M06.00 Rheumatoid arthritis without rheumatoid factor, unspecified site (principal); M17.0 Bilateral primary osteoarthritis of knee; M75.51 Bursitis of right shoulder; Q66.70 Congenital pes cavus, unspecified foot; K21.00 Gastro-esophageal reflux disease with esophagitis, without bleeding; F32.89 Other specified depressive episodes; M47.892 Other spondylosis, cervical region; M47.897 Other spondylosis, lumbosacral region; I70.90 Unspecified atherosclerosis; E78.5 Hyperlipidemia, unspecified; Z79.899 Other long term (current) drug therapy
CPT/HCPCS: 36415; 80053; 85025

== ENCOUNTER → 2020-10-24 07:32 | Outpatient (CLI) | payer OTHER, MEDICARE, SELFPAY ==
[2020-10-24 07:55] LABS: Erythrocyte Sedimentation Rate 2 mm/hr (0-20)
[2020-10-24 07:57] LABS: Absolute Neutrophil Count 3.8 X10^3/uL (2.0-7.7); Basophil# 0.03 X10^3/uL; Basophil% 0.4 % (0-1); Eosinophil# 0.11 X10^3/uL; Eosinophils% 1.5 % (0-5); Hematocrit 44.4 % (40-54); Hemoglobin 14.6 g/dL (13.0-16.5); Lymphocyte % 34.8 % (19-41); Mean Corp Hgb Conc 32.9 g/dL (32-36); Mean Corpuscular Hgb 33.5 pg (27.0-32.0); Mean Corpuscular Volume 101.8 fL (80-94); Mean Platelet Vol. 8.5 fl (6.2-12.0); Monocyte# 0.74 X10^3/uL; Monocyte% 10.3 % (0-10); NRBC Flagged by Analyzer 0 % (0-5); Neutrophil # 3.75 X10^3/uL (2.7-7.7); Neutrophil % 52.3 % (47-70); Platelet Count 219 K/mm3 (150-450); RBC Distribution Width CV 13.4 % (11.6-14.6); RBC Distribution Width SD 51.4 fl (35.1-43.9); Red Blood Count 4.36 M/mm3 (4.6-6.2); White Blood Count 7.2 K/mm3 (4.4-11.0)
[2020-10-24 08:23] LABS: Vitamin B12 1275 pg/mL (211-911); Vitamin D,25 Hydroxy 34.5 ng/mL
[2020-10-24 08:55] LABS: ALB/GLOB Ratio 1.1 RATIO (0.9-2.4); AST(SGOT) 30 U/L (15-37); Alanine Aminotransfer ALT/SGPT 43 U/L (16-61); Albumin, Serum 3.9 g/dL (3.2-5.0); Alkaline Phosphatase 149 U/L (45-117); Anion Gap 6 (5-15); BUN 19 mg/dL (7-18); BUN/Creat Ratio 26.8 RATIO (10-20); Bilirubin, Direct 0.12 mg/dL (0.00-0.30); CRP < 2.90 mg/L (0.0-3.0); Chloride 107 mmol/L (98-107); Cholesterol 182 mg/dL (200); Creatinine, Serum 0.71 mg/dL (0.70-1.30); EST Glomerular Filtration Rate 119 mL/min (>60); Est Glom Filt Rate - Afr Amer 144 mL/min (>60); Globulin 3.4 g/dL (2.2-4.2); Glucose 156 mg/dL (74-106); High Density Lipoprotein 43 mg/dL; PSA,Total - Annual Screen 0.66 ng/mL (0.00-4.00); Potassium 4.1 mmol/L (3.5-5.1); Protein, Total 7.3 g/dL (6.4-8.2); Sodium Level 140 mmol/L (136-145); T4 Free Direct 0.85 ng/dL (0.76-1.46); Thyroid Stim Hormone (TSH) 1.25 uIU/mL (0.358-3.74); Triglycerides 334 mg/dL; Very Low Density Lipoprotein 67 mg/dL (5-40)
[2020-10-25 10:52] LABS: Thyroid Peroxidase AB < 8 IU/mL (0-34)
[2020-10-25 21:16] LABS: ANTINUCLEAR ANTIBODIES DIRECT Negative (Negative)
== END ==
PROVIDERS: Nurse Practitioner Family; PCP Family Medicine
DX: Z00.00 Encounter for general adult medical examination without abnormal findings (principal); R53.83 Other fatigue; M25.50 Pain in unspecified joint; E78.5 Hyperlipidemia, unspecified; E55.9 Vitamin D deficiency, unspecified; Z13.220 Encounter for screening for lipoid disorders; Z12.5 Encounter for screening for malignant neoplasm of prostate
CPT/HCPCS: 36415; 80053; 80061; 82248; 82306; 82607; 82746; 84153; 84439; 84443; 85025; 85652; 86038; 86140; 86376; G0103

== ENCOUNTER → 2020-12-10 16:45 | Outpatient (CLI) | payer OTHER, MEDICARE, SELFPAY ==
[2020-12-10 17:25] LABS: Absolute Lymphocyte Count 2.59 X10^3/uL (0.83-4.51); Absolute Neutrophil Count 3.4 X10^3/uL (2.0-7.7); Basophil# 0.03 X10^3/uL; Basophil% 0.4 % (0-1); Eosinophil# 0.09 X10^3/uL; Eosinophils% 1.3 % (0-5); Hematocrit 40.1 % (40-54); Hemoglobin 13.5 g/dL (13.0-16.5); Lymphocyte # 2.59 X10^3/ul (0.83-4.51); Lymphocyte % 37.1 % (19-41); Mean Corp Hgb Conc 33.7 g/dL (32-36); Mean Corpuscular Hgb 33.9 pg (27.0-32.0); Mean Corpuscular Volume 100.8 fL (80-94); Mean Platelet Vol. 8.3 fl (6.2-12.0); Monocyte# 0.85 X10^3/uL; Monocyte% 12.2 % (0-10); NRBC Flagged by Analyzer 0 % (0-5); Neutrophil # 3.39 X10^3/uL (2.7-7.7); Neutrophil % 48.6 % (47-70); Platelet Count 179 K/mm3 (150-450); RBC Distribution Width CV 13.6 % (11.6-14.6); RBC Distribution Width SD 50.7 fl (35.1-43.9); Red Blood Count 3.98 M/mm3 (4.6-6.2)
[2020-12-10 18:15] LABS: AST(SGOT) 25 U/L (15-37); Alanine Aminotransfer ALT/SGPT 38 U/L (16-61); Albumin, Serum 3.5 g/dL (3.2-5.0); Alkaline Phosphatase 127 U/L (45-117); Anion Gap 9 (5-15); BUN 14 mg/dL (7-18); BUN/Creat Ratio 19.1 RATIO (10-20); Calcium,Total 9.3 mg/dL (8.5-10.1); Chloride 103 mmol/L (98-107); Creatinine, Serum 0.73 mg/dL (0.70-1.30); EST Glomerular Filtration Rate 114 mL/min (>60); Est Glom Filt Rate - Afr Amer 138 mL/min (>60); Globulin 3.4 g/dL (2.2-4.2); Glucose 155 mg/dL (74-106); Potassium 3.6 mmol/L (3.5-5.1); Protein, Total 6.9 g/dL (6.4-8.2); Sodium Level 139 mmol/L (136-145)
== END ==
PROVIDERS: PCP Family Medicine; Visit Provider Internal Medicine Rheumatology
DX: M06.00 Rheumatoid arthritis without rheumatoid factor, unspecified site (principal); M17.0 Bilateral primary osteoarthritis of knee; M75.51 Bursitis of right shoulder; Q66.70 Congenital pes cavus, unspecified foot; K21.00 Gastro-esophageal reflux disease with esophagitis, without bleeding; F32.89 Other specified depressive episodes; M47.892 Other spondylosis, cervical region; M47.897 Other spondylosis, lumbosacral region; I70.90 Unspecified atherosclerosis; E78.5 Hyperlipidemia, unspecified
CPT/HCPCS: 36415; 80053; 85025

== ENCOUNTER → 2021-01-09 12:12 | Outpatient (CLI) | payer OTHER, MEDICARE, SELFPAY ==
--- NOTE | 2021-01-09 12:28 | MRI_ITS ---
History: SPINAL STENOSIS, COMPRESSION FX Technique: T1 and T2 MR imaging of the lumbar spine performed with and without contrast enhancement in axial and sagittal planes. 20mL Dotarem Comparison: February 28, 2020 Findings: Alignment of the lumbar vertebral bodies is normal. No bone no edema. The compression deformity of the L1 vertebral body is stable. Laminectomy changes at L4 and L5 with interpedicular screw fixation of the spine is unchanged from prior exam. The conus medullaris is normal. No abnormal contrast enhancement L1-2: No disc protrusion. Posterior ligamentous redundancy causes mild impression on the thecal sac narrowing of the right neural foramen related to facet arthropathy. L2-3: No disc herniation. Prominent posterior ligamentous redundancy results in moderate to severe spinal stenosis significantly changed from prior exam. Moderate narrowing of the neuroforamina secondary to facet arthropathy. L3-4: Interval broad-based disc herniation. Marked posterior ligamentous redundancy and facet arthropathy result in marked spinal stenosis significant change from prior exam. Changes result in significant neuroforaminal narrowing bilaterally. L4-5: No disc protrusion. Normal caliber spinal canal and neural foramina. L5-S1: No disc protrusion. Normal caliber spinal canal and neural foramina. IMPRESSION: Moderate to severe L2-3 and severe L3-4 spinal stenoses. at 0925 Reported and signed by: Riccardo Magana MD Electronically Signed: Riccardo Magana MD at 9:24 EDT Tel , Service support , MRI/Spine Lumbar W/WO Contrast
== END ==
PROVIDERS: PCP Family Medicine; Visit Provider Nurse Practitioner
DX: M48.061 Spinal stenosis, lumbar region without neurogenic claudication (principal); S32.000A Wedge compression fracture of unspecified lumbar vertebra, initial encounter for closed fracture; X58.XXXA Exposure to other specified factors, initial encounter; Y93.9 Activity, unspecified; Y92.9 Unspecified place or not applicable; Y99.9 Unspecified external cause status
CPT/HCPCS: 72158; A9575

== ENCOUNTER → 2021-02-04 07:04 | Outpatient (CLI) | payer OTHER, MEDICARE, SELFPAY ==
[2021-02-04 08:06] LABS: Creatinine, Serum 0.71 mg/dL (0.70-1.30); EST Glomerular Filtration Rate 119 mL/min (>60); Est Glom Filt Rate - Afr Amer 144 mL/min (>60)
== END ==
PROVIDERS: PCP Family Medicine; Referring Provider Nurse Practitioner; Visit Provider Nurse Practitioner
DX: M48.061 Spinal stenosis, lumbar region without neurogenic claudication (principal)
CPT/HCPCS: 36415; 82565

== ENCOUNTER → 2021-02-11 06:32 | Outpatient (CLI) | payer OTHER, MEDICARE, SELFPAY ==
--- NOTE | 2021-02-11 16:44 | STRESSREP_ITS ---
Stress Test Report Pharmacologic myocardial perfusion stress test. Preoperative cardiac evaluation patient with known coronary artery disease. Stress protocol: Resting EKG demonstrates normal sinus rhythm with a rate of 74 bpm and evidence of previous inferior infarct. T wave inversions are noted in lead I and aVL. Resting blood pressure is 144/84 mmHg. 0.4 mg of regadenoson was infused per usual protocol following Intravenous saline flush injection. Continuous EKG monitoring was performed. At rest T wave inversions are noted in V1 and aVL. The patient maintained sinus rhythm throughout the recording. The maximum heart rate attained was noted to be 96 bpm which was 61% of max impact at heart rate the maximum workload was 1 metabolic equivalent. At peak infusion T wave inversions persisted. No acute changes were noted. The test was terminated due to completion of the infusion the peak blood pressure was 156/90 mmHg. Myocardial perfusion protocol. 14.8 mCi of technetium 99m sestamibi was injected at rest. 0.4 mg of regadenoson was infused per usual protocol. At peak infusion 45.0 mCi of technetium 99m sestamibi was injected stress images were obtained stress and rest images were reconstructed and compared in the short axis vertical long and horizontal long axis. Gated images were also obtained per Perfusion SPECT analysis: Review of the stress images demonstrate a normal cardiac silhouette noted in the septum anterior wall and lateral wall. The entire inferior wall has a perfusion defect noted on the stress images which is persistent on the resting images as well. The inferior apical wall has minimal improvement suggesting minimal alicia- infarct ischemia. A large part of the inferior wall is however a fixed infarct. Gated SPECT analysis: The gated ejection fraction is 46%. Conclusion: Myocardial perfusion stress test with evidence of extensive inferior infarct. Minimal alicia-infarct ischemia only noted. Ejection fraction of 46%
== END ==
PROVIDERS: PCP Family Medicine; Referring Provider Physician Assistant Medical; Visit Provider Physician Assistant Medical
DX: Z01.818 Encounter for other preprocedural examination (principal); I25.10 Atherosclerotic heart disease of native coronary artery without angina pectoris
CPT/HCPCS: 78452; 93017; A9500; A4216; J2785

== ENCOUNTER 2021-04-08 12:12 | Outpatient (CLI) | payer OTHER, MEDICARE, SELFPAY ==
[2021-04-08 16:57] LABS: Absolute Lymphocyte Count 1.13 X10^3/uL (0.83-4.51); Absolute Neutrophil Count 0.6 X10^3/uL (2.0-7.7); Basophil# 0.01 X10^3/uL; Basophil% 0.5 % (0-1); Eosinophil# 0.02 X10^3/uL; Hematocrit 30.5 % (40-54); Hemoglobin 10.7 g/dL (13.0-16.5); Lymphocyte # 1.13 X10^3/ul (0.83-4.51); Lymphocyte % 56.8 % (19-41); Mean Corp Hgb Conc 35.1 g/dL (32-36); Mean Corpuscular Hgb 35.9 pg (27.0-32.0); Mean Corpuscular Volume 102.3 fL (80-94); Monocyte# 0.27 X10^3/uL; Monocyte% 13.6 % (0-10); NRBC Flagged by Analyzer 0 % (0-5); Neutrophil # 0.56 X10^3/uL (2.7-7.7); Neutrophil % 28.1 % (47-70); POSITIVE COUNT YES; POSITIVE DIFFERENTIAL YES; POSITIVE MORPHOLOGY YES; Platelet Count 33 K/mm3 (150-450); RBC Distribution Width CV 14.1 % (11.6-14.6); Red Blood Count 2.98 M/mm3 (4.6-6.2)
[2021-04-08 18:07] LABS: Differential Indicated SCAN CRITERIA MET
[2021-04-08 18:09] LABS: Differential Comment SCANNED
[2021-04-08 18:11] LABS: ALB/GLOB Ratio 0.7 RATIO (0.9-2.4); AST(SGOT) 16 U/L (15-37); Alanine Aminotransfer ALT/SGPT 26 U/L (16-61); Albumin, Serum 3.2 g/dL (3.2-5.0); Alkaline Phosphatase 129 U/L (45-117); Anion Gap 4 (5-15); BUN 13 mg/dL (7-18); BUN/Creat Ratio 22.6 RATIO (10-20); Calcium,Total 9.2 mg/dL (8.5-10.1); Chloride 103 mmol/L (98-107); Creatinine, Serum 0.58 mg/dL (0.70-1.30); EST Glomerular Filtration Rate 152 mL/min (>60); Est Glom Filt Rate - Afr Amer 183 mL/min (>60); Globulin 4.5 g/dL (2.2-4.2); Glucose 171 mg/dL (74-106); Potassium 3.8 mmol/L (3.5-5.1); Protein, Total 7.7 g/dL (6.4-8.2); Sodium Level 136 mmol/L (136-145)
[2021-04-09 10:29] LABS: Pathologist Review Reviewed
== END 2021-04-08 23:59 | disposition short-term general hospital (02) ==
PROVIDERS: PCP Family Medicine; Referring Provider Internal Medicine Rheumatology; Visit Provider Internal Medicine Rheumatology
DX: M06.00 Rheumatoid arthritis without rheumatoid factor, unspecified site (principal); M17.0 Bilateral primary osteoarthritis of knee; M75.51 Bursitis of right shoulder; Q66.70 Congenital pes cavus, unspecified foot; K21.00 Gastro-esophageal reflux disease with esophagitis, without bleeding; F32.89 Other specified depressive episodes; M47.892 Other spondylosis, cervical region; M47.897 Other spondylosis, lumbosacral region; I70.90 Unspecified atherosclerosis; E78.5 Hyperlipidemia, unspecified; Z79.899 Other long term (current) drug therapy
CPT/HCPCS: 36415; 80053; 85025

== ENCOUNTER 2021-04-15 05:52 | Inpatient (IN) | payer OTHER, MEDICARE, SELFPAY ==
[2021-04-15] VITALS (8 sets, daily range): BP systolic 116–131; BP diastolic 58–87; PULSE 74–94; RESP 11–22; TEMP 36.6–37; O2SAT 96–98; BMI 31.0; BMI 30.7
--- NOTE | 2021-04-15 06:21 | EDS_ITS ---
HPI History of Present Illness Chief Complaint: General Illness Informant: patient Onset/Context/Timing Onset: Month(s) Context: Gradual Onset Timing: Continuous Quality: Weakness Location: Generalized Worsened by: Nothing Relieved by: Nothing Narrative Narrative: Patient presents with generalized weakness that has been getting worse over the past 2 months. Patient states he is supposed to see Dr. Martell from oncology but has not been able to get in to see him yet. Patient states he was recently diagnosed with pancytopenia. Patient states he feels weak all over. Patient states it is getting worse by the day. Patient admits to some subjective chills. Patient admits to some nausea. Patient admits to some shortness of breath with exertion but thinks this is more due to his weakness. Patient denies any fevers. [facility] Medical History (Updated 04/15/21 @ 07:[address] Tunde Fierro, ) Atherosclerotic heart disease of [place] coronary artery without angina pectoris Bilateral carotid artery stenosis CVA (cerebral vascular accident) Essential (primary) hypertension Hyperlipidemia Ischemic cardiomyopathy Old inferior wall myocardial infarction Rheumatoid arthritis Septic arthritis of knee, left Home Medications meloxicam 15 mg PO QHS 07/03/14 [History Last Taken 08/10/18 22:00] omeprazole 40 mg PO QHS 07/03/14 [History Last Taken 08/10/18 22:00] nitroglycerin 0.4 mg sublingual tablet 0.4 mg SUBLINGUAL Q5M PRN 05/12/17 [History Last Taken Unknown] fluoxetine 40 mg PO QHS 07/29/18 [History Last Taken 08/10/18 22:00] leflunomide 20 mg PO QHS #0 08/16/18 [Rx Last Taken 08/08/18 22:00] tolbutamide 500 mg tablet 500 mg PO DAILY 12/15/18 [History Last Taken Unknown] abatacept 125 mg/mL subcutaneous syringe 125 mg SC QWEEK 06/06/19 [History Last Taken Unknown] lisinopril 5 mg tablet 5 mg PO QHS #90 tab 10/13/19 [Rx Last Taken Unknown] ranolazine 1,000 mg tablet,extended release,12 hr 1,000 mg PO BID #180 tab 07/29/20 [Rx Last Taken Unknown] rosuvastatin 10 mg tablet 10 mg PO DAILY #90 tab 07/20/21 [Rx Last Taken Unknown] metformin 1,000 mg tablet 1,000 mg PO DAILY tab 02/05/21 [History Last Taken Unknown] carvedilol 6.25 mg tablet 6.25 mg PO BID #180 tab 02/10/21 [Rx Last Taken Unknown] Allergy/AdvReac Type Severity Reaction Status Date / Time No Known Allergies Allergy Verified 04/15/21 05:57 Family History Father CAD (coronary artery disease) Diabetes Surgical History H/O cervical spine surgery (03/2019) H/O coronary artery bypass surgery (05/22/03) History of coronary artery stent placement (04/14/16) History of left knee surgery (08/2018) History of shoulder surgery Social History Smoking Status: Former smoker alcohol intake: never substance use type: does not use caffeine: Yes Type: coffee Number of servings: 2 what type of physical activity do you participate in: walking and bicycling frequency: daily duration: 60-90 minutes/day seatbelt use: always do you feel safe at home: Yes ROS ROS ED Constitutional Constitutional ED: Reports chills and subjective; Denies fever(s) Eyes Eyes: Denies blurry vision or change in vision ENT ENT ED: Denies rhinorrhea or sore throat Cardiovascular Cardiovascular: Denies chest pain or palpitations Respiratory/Chest Respiratory/Chest: Reports dyspnea; Denies cough Gastrointestinal Gastrointestinal: Reports nausea; Denies vomiting Genitourinary Genitourinary ED: Denies dysuria or hematuria Musculoskeletal Musculoskeletal: Reports back pain and neck pain Integumentary Denies abscess or rash Neurologic Neurologic: Reports headache(s) and weakness Allergic/Immunologic Allergic/Immunologic ED: Denies mouth swelling or urticaria EXAM Physical Exam Const Vital Signs: 04/15/21 05:53 04/15/21 05:58 Temperature 98.5 F Temperature Source Temporal Pulse Rate 94 Respiratory Rate 16 Respiratory Effort Normal Respiratory Pattern Normal Blood Pressure 120/81 H Blood Pressure Mean 94 Pulse Ox 98 Oxygen Delivery Method Room Air Positive well nourished and well developed General Appearance ED: well developed HEENT Reports moist mucous membranes Neck supple and no JVD Resp normal respiratory effort and clear to auscultation bilaterally Cardio regular rate, regular rhythm and no murmurs GI normal to inspection, nondistended, normoactive bowel sounds and non-tender Palpation: soft Extremity normal to inspection General Extremety ED: Negative for edema or tenderness General Extremity: Negative for edema Neuro oriented x3, CN's II-XII intact bilaterally and no sensory deficits noted Sensorium / Orientation: alert Motor Exam: strength 5/5 throughout Psych mental status grossly normal Skin no rashes or lesions noted MDM MDM MDM Narrative Medical decision making narrative: EKG was obtained. On my interpretation, it showed a normal sinus rhythm with a rate of 89. MI interval, QRS interval, and QTc intervals were all normal. [place] was normal. There are no acute ST or T wave changes. CBC shows pancytopenia with a white blood cell count of 1.4, hemoglobin of 8.8, hematocrit of 24.5, and platelets of 22. PT was INR and PTT were within normal limits. Comprehensive metabolic profile was essentially within normal limits. COVID-19 rapid antigen was obtained and was negative. Troponin was ordered and is pending. Case was discussed with the hospitalist. He will admit the patient to his service. Patient understood and was agreeable with the plan. All questions were answered. Lab Data Attestation: I reviewed the patient's lab results. Labs: Laboratory Results - last 24 hr 04/15/21 04/15/21 04/15/21 06:00 06:00 06:00 WBC 1.4 L* RBC 2.43 L Hgb 8.8 L Hct 24.5 L MCV 100.8 H MCH 36.2 H MCHC 35.9 RDW Std Deviation 51.2 H RDW Coeff of Jamie 14.3 Plt Count 22 L* MPV 11.9 Immature Gran % (Auto) 0.700 Neut % (Auto) 30.8 L Lymph % (Auto) 55.0 H [place] % (Auto) 10.7 H Eos % (Auto) 2.1 Baso % (Auto) 0.7 Absolute Neuts (auto) 0.4 L Absolute Lymphs (auto) 0.77 L Nucleated RBC % 0 [address] Review May foll Ovalocytes 1+ PT 13.3 INR 1.1 APTT 33.6 Sodium 136 Potassium 3.9 Chloride 104 Carbon Dioxide 24.0 Anion Gap 8 BUN 10 Creatinine 0.68 L Estim Creat Clear Calc 107.57 Est GFR (MDRD) Af Amer 151 Est GFR (MDRD) Non-Af 125 BUN/Creatinine Ratio 14.7 Glucose 227 H Calcium 8.9 Total Bilirubin 0.60 AST 13 L ALT 26 Alkaline Phosphatase 130 H Total Protein 7.1 Albumin 2.7 L Globulin 4.4 H Albumin/Globulin Ratio 0.6 L Discharge Plan Triage Chief Complaint: General Illness ED Provider: Tunde Fierro Dx/Rx/DC Orders Clinical Impression: Pancytopenia Prescriptions: No Action nitroglycerin [Nitrostat] 0.4 mg tablet, sublingual 0.4 mg SUBLINGUAL Q5M PRN (Reason: Angina) RF: 0 [place] 125 mg/mL syringe 125 mg SC QWEEK RF: 0 tolbutamide 500 mg tablet 500 mg PO DAILY RF: 0 metformin 1,000 mg tablet 1,000 mg PO DAILY RF: 0 fluoxetine 40 MG capsule 40 mg PO QHS RF: 0 leflunomide 20 MG tablet 20 mg PO QHS Qty: 0 RF: 0 meloxicam 15 MG tablet 15 mg PO QHS RF: 0 omeprazole 40 MG capsule 40 mg PO QHS RF: 0 lisinopril 5 mg tablet 5 mg PO QHS Qty: 90 RF: 3 ranolazine 1,000 mg tablet extended release 12 hr 1,000 mg PO BID Qty: 180 RF: 3 rosuvastatin [Crestor] 10 mg tablet 10 mg PO DAILY Qty: 90 RF: 3 carvedilol 6.25 mg tablet 6.25 mg PO BID Qty: 180 RF: 3 Primary Care Provider: Jose Luis Leija Referrals: Jose Luis Leija MD [Primary Care Provider] - Disposition Disposition: Acute Care [facility]
--- NOTE | 2021-04-15 06:24 | EKG12_ITS ---
Test Reason : WEAKNESS Blood Pressure : / mmHG Vent. Rate : 089 BPM Atrial Rate : 089 BPM P-R Int : 172 ms QRS Dur : 098 ms QT Int : 366 ms P-R-T Axes : 048 -20 134 degrees QTc Int : 445 ms Normal sinus rhythm Inferior-posterior infarct , age undetermined T wave abnormality, consider lateral ischemia Abnormal ECG Confirmed by ROMULO AYALA, CHARLINE ([id number]), acquisition editor MARLEY YAN ([id number]) on 04/16/2021 9:40:49 AM Referred By: NALLELY Confirmed By:CHARLINE SEBASTIAN MD
[2021-04-15 06:39] LABS: Absolute Lymphocyte Count 0.77 X10^3/uL (0.83-4.51); Absolute Neutrophil Count 0.4 X10^3/uL (2.0-7.7); Basophil# 0.01 X10^3/uL; Basophil% 0.7 % (0-1); Eosinophil# 0.03 X10^3/uL; Eosinophils% 2.1 % (0-5); Hematocrit 24.5 % (40-54); Hemoglobin 8.8 g/dL (13.0-16.5); Lymphocyte # 0.77 X10^3/ul (0.83-4.51); Mean Corp Hgb Conc 35.9 g/dL (32-36); Mean Corpuscular Hgb 36.2 pg (27.0-32.0); Mean Corpuscular Volume 100.8 fL (80-94); Mean Platelet Vol. 11.9 fl (6.2-12.0); Monocyte# 0.15 X10^3/uL; Monocyte% 10.7 % (0-10); NRBC Flagged by Analyzer 0 % (0-5); Neutrophil # 0.43 X10^3/uL (2.7-7.7); Neutrophil % 30.8 % (47-70); POSITIVE COUNT YES; POSITIVE DIFFERENTIAL YES; POSITIVE MORPHOLOGY YES; Platelet Count 22 K/mm3 (150-450); RBC Distribution Width CV 14.3 % (11.6-14.6); RBC Distribution Width SD 51.2 fl (35.1-43.9); Red Blood Count 2.43 M/mm3 (4.6-6.2); White Blood Count 1.4 K/mm3 (4.4-11.0)
[2021-04-15 06:46] LABS: International Normalized Ratio 1.1; Prothrombin Time (Protime)PT. 13.3 SECONDS (11.7-14.9)
[2021-04-15 06:47] LABS: Partial Thromboplast Time 33.6 Seconds (24.1-36.2)
[2021-04-15 06:48] LABS: ALB/GLOB Ratio 0.6 RATIO (0.9-2.4); AST(SGOT) 13 U/L (15-37); Alanine Aminotransfer ALT/SGPT 26 U/L (16-61); Albumin, Serum 2.7 g/dL (3.2-5.0); Alkaline Phosphatase 130 U/L (45-117); Anion Gap 8 (5-15); BUN 10 mg/dL (7-18); BUN/Creat Ratio 14.7 RATIO (10-20); Calcium,Total 8.9 mg/dL (8.5-10.1); Chloride 104 mmol/L (98-107); Creatinine, Serum 0.68 mg/dL (0.70-1.30); EST Glomerular Filtration Rate 125 mL/min (>60); Est Glom Filt Rate - Afr Amer 151 mL/min (>60); Estimated Creatinine Clearance 107.57 ml/min; Globulin 4.4 g/dL (2.2-4.2); Glucose 227 mg/dL (74-106); Potassium 3.9 mmol/L (3.5-5.1); Protein, Total 7.1 g/dL (6.4-8.2); Sodium Level 136 mmol/L (136-145)
[2021-04-15 06:49] LABS: Differential Indicated SCAN CRITERIA MET
[2021-04-15 07:07] LABS: Ovalocyte 1+
--- NOTE | 2021-04-15 07:26 | PCM.HP.STD ---
[facility] - General General Date of Admission: 04/15/21 Date of Service: 04/15/21 Chief Complaint: Generalized weakness HPI Narrative JOSE MUJICA, is a 65 M who presents with generalized weakness. Patient has significant past medical history including coronary artery disease status post CABG rheumatoid arthritis on leflunomide as well as abatacept, recent Covid infection in February 2021 who presents with progressive generalized weakness. Patient states his symptoms have been ongoing following his Covid diagnosis. He reports easy fatigability with minimal activity. Patient has also noticed occasional epistaxis. Was seen by his heating and cooling technician lab work drawn did reveal pancytopenia with platelet count of 33 WBC count of 2.0 and hemoglobin of 10.7. Patient was due to be evaluated by heme-onc however due to the progressive nature of his symptoms he was encouraged by the to present to the ED where further drop in his counts was evident. Decision made to admit patient for subsequent evaluation in the hospital. [facility] Medical History Atherosclerotic heart disease of [place] coronary artery without angina pectoris Bilateral carotid artery stenosis CVA (cerebral vascular accident) Essential (primary) hypertension Hyperlipidemia Ischemic cardiomyopathy Old inferior wall myocardial infarction Rheumatoid arthritis Septic arthritis of knee, left Home Medications meloxicam 15 mg PO QHS 07/03/14 [History Last Taken 08/10/18 22:00] omeprazole 40 mg PO QHS 07/03/14 [History Last Taken 08/10/18 22:00] nitroglycerin 0.4 mg sublingual tablet 0.4 mg SUBLINGUAL Q5M PRN 05/12/17 [History Last Taken Unknown] fluoxetine 40 mg PO QHS 07/29/18 [History Last Taken 08/10/18 22:00] tolbutamide 500 mg tablet 500 mg PO DAILY 12/15/18 [History Last Taken Unknown] lisinopril 5 mg tablet 5 mg PO QHS #90 tab 10/13/19 [Rx Last Taken Unknown] ranolazine 1,000 mg tablet,extended release,12 hr 1,000 mg PO BID #180 tab 07/29/20 [Rx Last Taken Unknown] rosuvastatin 10 mg tablet 10 mg PO DAILY #90 tab 09/24/20 [Rx Last Taken Unknown] metformin 1,000 mg tablet 1,000 mg PO DAILY tab 02/05/21 [History Last Taken Unknown] carvedilol 6.25 mg tablet 6.25 mg PO BID #180 tab 02/10/21 [Rx Last Taken Unknown] Allergy/AdvReac Type Severity Reaction Status Date / Time No Known Allergies Allergy Verified 04/15/21 05:57 Family History Father CAD (coronary artery disease) Diabetes Surgical History H/O cervical spine surgery (03/2019) H/O coronary artery bypass surgery (05/22/03) History of coronary artery stent placement (04/14/16) History of left knee surgery (08/2018) History of shoulder surgery Social History Smoking Status: Former smoker alcohol intake: never substance use type: does not use caffeine: Yes Type: coffee Number of servings: 2 what type of physical activity do you participate in: walking and bicycling frequency: daily duration: 60-90 minutes/day seatbelt use: always do you feel safe at home: Yes ROS ROS Narrative GENERAL: chills, night sweats, weight loss, anorexia HEENT: denies headache, sinus congestion, or drainage, RESPIRATORY: dyspnea on exertion CARDIAC: denies chest pain, palpitations, orthopnea, PND GASTROINTESTINAL: denies abdominal pain, nausea, vomiting, melena, GENITOURINARY: denies dysuria, urgency, frequency, heamaturia EXTREMITY: denies swelling MUSCULOSKELETAL: denies current joint pain or tenderness NEUROLOGIC: denies focal numbness, weakness, tingling HEMATOLOGIC: easy bruising and/or hemorrhage INTEGUMENT: denies rashes PSYCHIATRIC: denies suicidal or homicidal ideation Vital Signs Vital Signs Vital Signs: 04/15/21 05:53 04/15/21 05:58 Temperature 98.5 F Temperature Source Temporal Pulse Rate 94 Respiratory Rate 16 Respiratory Effort Normal Respiratory Pattern Normal Blood Pressure 120/81 H Blood Pressure Mean 94 Pulse Ox 98 Oxygen Delivery Method Room Air Weight Weight: 92.7 kg Body Mass Index (BMI) 31.0 Physical Exam Narrative GENERAL: cooperative HEENT: Atraumatic; EYES; Anicteric, Normal Conjunctiva NECK; supple, normal thyroid, RESPIRATORY: Diminished to auscultation CARDIOVASCULAR: Regular S1 S2, GI: soft, normoactive bowel sounds, : No Renal angle tenderness; EXTREMITIES: No edema, no clubbing, MUSCULOSKELETAL: no muscle wasting NEURO: Awake; no lateralizing signs. SKIN: No Rash PSYCH; Flat affect Results Lab / Micro Data Result Diagrams: 04/15/21 06:00 04/15/21 06:00 Labs: Laboratory Results - last 24 hr 04/15/21 06:00: WBC 1.4 L*, RBC 2.43 L, Hgb 8.8 L, Hct 24.5 L, MCV 100.8 H, MCH 36.2 H, MCHC 35.9, RDW Std Deviation 51.2 H, RDW Coeff of Jamie 14.3, Plt Count 22 L*, MPV 11.9, Immature Gran % (Auto) 0.700, Neut % (Auto) 30.8 L, Lymph % (Auto) 55.0 H, [place] % (Auto) 10.7 H, Eos % (Auto) 2.1, Baso % (Auto) 0.7, Absolute Neuts (auto) 0.4 L, Absolute Lymphs (auto) 0.77 L, Nucleated RBC % 0, Diff Path Review May foll, Ovalocytes 1+ 04/15/21 06:00: PT 13.3, INR 1.1, APTT 33.6 04/15/21 06:00: Sodium 136, Potassium 3.9, Chloride 104, Carbon Dioxide 24.0, Anion Gap 8, BUN 10, Creatinine 0.68 L, Estim Creat Clear Calc 107.57, Est GFR (MDRD) Af Amer 151, Est GFR (MDRD) Non-Af 125, BUN/Creatinine Ratio 14.7, Glucose 227 H, Calcium 8.9, Total Bilirubin 0.60, AST 13 L, ALT 26, Alkaline Phosphatase 130 H, Total Protein 7.1, Albumin 2.7 L, Globulin 4.4 H, Albumin/Globulin Ratio 0.6 L Micro: Microbiology 04/15/21 06:32 Nasal Secretion SARS-CoV-2 Antigen (Rapid) - Final Assessment & Plan Assessment/Plan (1) Pancytopenia: PLAN: Patient is a 65-year-old gentleman presented with progressive generalized weakness found to be pancytopenic 1. Pancytopenia ?Differential diagnosis includes medication induced (leflunomide) versus bone marrow pathology such as malignancy. Patient has been admitted to regular nursing floor for subsequent work-up. Consult has been placed to Dr Blankenship with oncology. Plan is for patient to undergo CT-guided bone marrow biopsy by radiation oncology. Patient being monitored with daily CBC with plans to transfuse if hemoglobin falls below 7 or platelet count falls below 7K 2. Coronary artery disease ?Status post CABG. Patient had held his Plavix due to his relatively low platelet counts 3. Rheumatoid arthritis ?Patient was on both leflunomide as well as abatacept, he was advised by his heating and cooling technician to hold these 2 medication as well as being evaluated for his pancytopenia 4. Hypertension - Blood pressure controlled, home medications continued with dose adjustment as needed 5. Dyslipidemia -Patient is on statin therapy, continued at home dose 6. Diabetes mellitus type II -patient's Metformin was held. Placed on Accu-Cheks a.c. and at bedtime and covered with sliding scale insulin 7. DVT prophylaxis ?Chemoprophylaxis contraindicated in view of patient's low platelet count. Charges/Coding Visit Charges Inpatient E&M: 39376 Init Hosp L3
[2021-04-15 07:42] LABS: Troponin-I HS 17 pg/mL (3.0-78.0)
[2021-04-15 11:15] LABS: Erythrocyte Sedimentation Rate 35 mm/hr (0-20)
[2021-04-15 11:20] LABS: Immature Platelet Fraction 4.4 % (1.0-7.9); RET-HE 36.7 pg (30-35); Reticulocyte Count 0.79 % (0.5-1.5)
[2021-04-15 11:29] LABS: Bacteria 0 SEEN /hpf (None Seen); Mucous, Urine 0 SEEN /hpf (<or=2+); Red Blood Cells-Urine 0 SEEN /hpf (0-5); Squamous Epithelial Cells - UA 0 SEEN /hpf (0-5); White Blood Cells 0 SEEN /hpf (0-5)
--- NOTE | 2021-04-15 11:35 | CASEMGMT ---
RN CM Face to Face with patient for initial transition planning/care coordination assessment. RN CM introduced self and role at [facility]. Patient lying in bed, alert and oriented, at bedside. Patient willing to participate in assessment and is able to answer all questions appropriately. Care providers, pharmacy, and demographics verified. Patient wishes to discharge home, denies need for home health at this time. Patient states he has no further needs or concerns at this time. CM to follow for discharge planning needs that may arise. PCP: Heladio Specialists: RA Cosmo; Elizabeth, government relations analyst; landon De [facility] Preferred Pharmacy: [facility] retail Insurance: [facility] [place], [facility] Prescription Benefit: yes Living Will/HPOA: yes, Cristina Chaparro LNOK: Living Arrangements: Patient lives in a 2 story house. Patient is independent and able to ambulate stairs. Transportation: self, DME/HHC: patient has raised toilet, cane, walker, and glucometer with testing supplies. Patient has previously had [facility]. Disposition Plan: Patient to discharge home with family support and follow-up plans in place. Krista HERRERA, RN, CM
[2021-04-15] MEDS: Carvedilol 6.25 MG Tablet PO ×2 (11:37→21:26)
[2021-04-15] MEDS: Ranolazine 500 MG Tablet 1000 MG PO ×2 (11:37→21:26)
[2021-04-15 11:41] LABS: Bedside Glucose 234 mg/dL (70-110)
[2021-04-15 11:44] LABS: Vitamin B12 1147 pg/mL (211-911)
[2021-04-15] MEDS: Insulin Lispro 100 UNIT/ML INSULN.PEN SC ×2 (11:44→16:54)
[2021-04-15 11:47] LABS: Color, Urine Yellow (Yellow); Glucose, Dipstick 1000 mg/dl (Normal); Ketone-Dipstick Negative (Negative); Leukocyte Esterase-Dipstick Negative /ul (Negative); Nitrite-Dipstick Negative (Negative); Occult Blood-Urine Negative /ul (Negative); Protein-Dipstick 15 mg/dl (Negative); Specific Gravity, Urine 1.025 (1.002-1.030); Urine Bilirubin Dipstick Negative (Negative); Urine Clarity Clear (Clear); Urine Urobilinogen Normal (Normal)
[2021-04-15 11:52] LABS: Thyroid Stim Hormone (TSH) 0.99 uIU/mL (0.358-3.74)
[2021-04-15 12:44] LABS: Pathologist Review Reviewed
--- NOTE | 2021-04-15 13:40 | CHAPLAIN ---
Type of Pastoral Visit _x__ Initial Visit ___ Follow-up Visit ___ On-call Visit ___ General Patient Visit ___ Spiritual Assessment ___ Family Conference ___ Bereavement ___ Rapid Response ___ Code Blue ___ Other (describe below) Pastoral Care Referral From ___ Patient _x__ Family ___ Nurse ___ Physician ___ Healthcare Market Consultant ___ Glue Spreader ___ Other (describe below) Sacrament/Intervention _x__ Active listening ___ Anointing ___ Temple ___ Bereavement ___ Communion ___ Candi exploration ___ _x__ Life review _x__ Prayer ___ Reconciliation ___ Sacrament of Sick _x__ Supportive presence ___ Wedding ___ Other (describe below) Pastoral Comments patient and spouse together; pt speaks of his test today; spouse talks about his health, coping, goals for life, and family; patient welcomes the visit and a prayer
--- NOTE | 2021-04-15 17:12 | ONC.CONSULT ---
Assessment & Plan Assessment/Plan (1) Pancytopenia: Status: Acute Code(s): D61.818 - Other pancytopenia Plan: Etiology include Bone marrow failure, medication induced. Suggestion to obtain bone marrow aspiration and biopsy, check B12/Folate/Copper/Lead levels/ESR/Retic count. Will follow with more suggestions based on the report. HPI Consult Data Date of Service:: 04/15/21 PCP / Referring Provider: Dr. Jose Luis Leija MD Attending: Dr. Prasanth Del Angel MD Chief Complaint Chief Complaint: Asked to see patient for pancytopenia. History of Present Illness History of Present Illness: 65-year-old man was found to have decreasing white blood cells, hemoglobin and platelets over a month, he felt so tired so came to the emergency room and now admitted to the [facility]. He denies fever but admits to epistaxis. Advanced Directives Power of Chairman & Chief Executive Officer: Yes Living Will: Yes FORMERLY [facility], [facility] Medical History Atherosclerotic heart disease of [place] coronary artery without angina pectoris Bilateral carotid artery stenosis CVA (cerebral vascular accident) Essential (primary) hypertension Hyperlipidemia Ischemic cardiomyopathy Old inferior wall myocardial infarction Rheumatoid arthritis Septic arthritis of knee, left Home Medications meloxicam 15 mg PO QHS 07/03/14 [History Last Taken 08/10/18 22:00] omeprazole 40 mg PO QHS 07/03/14 [History Last Taken 08/10/18 22:00] nitroglycerin 0.4 mg sublingual tablet 0.4 mg SUBLINGUAL Q5M PRN 05/12/17 [History Last Taken Unknown] fluoxetine 40 mg PO QHS 07/29/18 [History Last Taken 08/10/18 22:00] tolbutamide 500 mg tablet 500 mg PO DAILY 12/15/18 [History Last Taken Unknown] lisinopril 5 mg tablet 5 mg PO QHS #90 tab 10/13/19 [Rx Last Taken Unknown] ranolazine 1,000 mg tablet,extended release,12 hr 1,000 mg PO BID #180 tab 07/29/20 [Rx Last Taken Unknown] rosuvastatin 10 mg tablet 10 mg PO DAILY #90 tab 09/24/20 [Rx Last Taken Unknown] metformin 1,000 mg tablet 1,000 mg PO DAILY tab 02/05/21 [History Last Taken Unknown] carvedilol 6.25 mg tablet 6.25 mg PO BID #180 tab 02/10/21 [Rx Last Taken Unknown] Allergy/AdvReac Type Severity Reaction Status Date / Time No Known Allergies Allergy Verified 04/15/21 05:57 Family History Father CAD (coronary artery disease) Diabetes Surgical History H/O cervical spine surgery (03/2019) H/O coronary artery bypass surgery (05/22/03) History of coronary artery stent placement (04/14/16) History of left knee surgery (08/2018) History of shoulder surgery Social History Smoking Status: Former smoker alcohol intake: never substance use type: does not use caffeine: Yes Type: coffee Number of servings: 2 what type of physical activity do you participate in: walking and bicycling frequency: daily duration: 60-90 minutes/day seatbelt use: always do you feel safe at home: Yes ROS Constitutional Constitutional: Reports fatigue; Denies chills or fever(s) ENT HEENT: Denies dysphagia or hoarseness Cardiovascular Cardiovascular: Denies chest pain or clubbing Respiratory/Chest Respiratory/Chest: Denies chest tightness Gastrointestinal Gastrointestinal: Denies abdominal pain Genitourinary Genitourinary: Denies change in urinary stream, dysuria or flank pain Musculoskeletal Musculoskeletal: Denies abnormal gait Integumentary Integumentary: Denies alopecia Neurologic Neurologic: Denies abnormal speech, behavior changes, confusion or dizziness Psychiatric Psychiatric: Denies anxiety, depression or homicidal ideation Endocrine Endocrinology: Denies cold intolerance or flushing Hematologic/Lymphatic Hematologic/Lymphatic: Reports easy bleeding; Denies easy bruising or lymphadenopathy Physical Exam Const alert and oriented x3 Orientation / Consciousness: oriented to person HEENT normocephalic Head and Scalp: atraumatic Eyes PERRL, EOMs intact bilaterally, conjunctivae normal and no scleral icterus Neck no lymphadenopathy Lymph Lymphatic: no lymphadenopathy noted Chest Chest Narrative: + sternal scar. Resp normal respiratory effort Cardio regular rate, regular rhythm, S1 normal heart sound, S2 normal heart sound and no murmurs GI normal to inspection, nondistended, normoactive bowel sounds Bladder / Kidney Exam: no CVA tenderness Extremity normal to inspection and no clubbing, cyanosis or edema Skin no rashes or lesions noted Neuro CN's II-XII intact bilaterally, moves all extremities, no focal motor deficits and no sensory deficits noted Psych mental status grossly normal Vital Signs Temperature 98.3 F 04/15/21 16:02 Temperature Source Temporal 04/15/21 16:02 Pulse Rate 89 04/15/21 16:02 Pulse Strength Normal (2+) 04/15/21 10:00 Respiratory Rate 18 04/15/21 16:02 Respiratory Effort Non-Labored 04/15/21 08:05 Respiratory Pattern Normal 04/15/21 05:58 Blood Pressure 116/76 04/15/21 16:02 Blood Pressure Mean 89 04/15/21 16:02 Blood Pressure Source Monitor 04/15/21 16:02 Blood Pressure Position Semi-Fowlers 04/15/21 16:02 Blood Pressure Location Right Arm 04/15/21 16:02 Pulse Ox 98 04/15/21 16:02 Oxygen Delivery Method Room Air 04/15/21 16:02 Laboratory Results - last 24 hr 04/15/21 06:00: WBC 1.4 L*, RBC 2.43 L, Hgb 8.8 L, Hct 24.5 L, MCV 100.8 H, MCH 36.2 H, MCHC 35.9, RDW Std Deviation 51.2 H, RDW Coeff of Jamie 14.3, Plt Count 22 L*, MPV 11.9, Immature Gran % (Auto) 0.700, Neut % (Auto) 30.8 L, Lymph % (Auto) 55.0 H, [place] % (Auto) 10.7 H, Eos % (Auto) 2.1, Baso % (Auto) 0.7, Absolute Neuts (auto) 0.4 L, Absolute Lymphs (auto) 0.77 L, Nucleated RBC % 0, Diff Path Review Reviewed, Ovalocytes 1+ 04/15/21 06:00: PT 13.3, INR 1.1, APTT 33.6 04/15/21 06:00: Sodium 136, Potassium 3.9, Chloride 104, Carbon Dioxide 24.0, Anion Gap 8, BUN 10, Creatinine 0.68 L, Estim Creat Clear Calc 107.57, Est GFR (MDRD) Af Amer 151, Est GFR (MDRD) Non-Af 125, BUN/Creatinine Ratio 14.7, Glucose 227 H, Calcium 8.9, Total Bilirubin 0.60, AST 13 L, ALT 26, Alkaline Phosphatase 130 H, Total Protein 7.1, Albumin 2.7 L, Globulin 4.4 H, Albumin/Globulin Ratio 0.6 L 04/15/21 07:16: Troponin I High Sens 17 04/15/21 10:47: Vitamin B12 1147 H 04/15/21 10:47: Folate 25.80 04/15/21 10:47: Immature Plt Fraction 4.4, ESR 35 H, Retic Count 0.79, Immature Retic Fraction 12.00, Retic Hgb Equivalent 36.7 H 04/15/21 10:47: TSH 0.99 04/15/21 11:23: Urine Color Yellow, Urine Clarity Clear, Urine pH 5.0, Ur Specific [place] 1.025, Urine Protein 15 H, Urine Glucose (UA) 1000 H, Urine Ketones Negative, Urine Occult Blood Negative, Urine Nitrite Negative, Urine Bilirubin Negative, Urine Urobilinogen Normal, Ur Leukocyte Esterase Negative, Urine RBC 0 SEEN, Urine WBC 0 SEEN, Ur Squamous Epith Cells 0 SEEN, Urine Bacteria 0 SEEN, Urine Mucus 0 SEEN 04/15/21 11:35: POC Glucose 234 H Microbiology 04/15/21 06:32 Nasal Secretion SARS-CoV-2 Antigen (Rapid) - Final Charges/Coding Visit Charges Office Visits / Consults: [id number] IP Consult L3
[2021-04-15 17:31] LABS: Bedside Glucose 192 mg/dL (70-110)
[2021-04-15] MEDS: Pantoprazole Sodium 40 MG Tablet PO (21:26)
[2021-04-15] MEDS: FLUoxetine 20 MG Capsule 40 MG PO (21:26)
[2021-04-15] MEDS: Atorvastatin Calcium 20 MG Tablet PO (21:26)
[2021-04-15] MEDS: MELATONIN 3 MG TABLET PO (21:26)
[2021-04-15] MEDS: Lisinopril 5 MG Tablet PO (21:27)
[2021-04-15 21:56] LABS: Bedside Glucose 130 mg/dL (70-110)
[2021-04-16] VITALS (15 sets, daily range): BP systolic 111–170; BP diastolic 71–98; PULSE 79–94; RESP 11–21; TEMP 36.4–37.3; O2SAT 95–99; BMI 30.4
--- NOTE | 2021-04-16 | BMB_PTH ---
PATIENT: JOSE MUJICA LOC: MS3 U#:[id number] AGE/SX: 65/M ROOM: [facility]321 RE04/15/[address]: Dr. Prasanth Del Angel MD : 1955 BED: 1 DIS: 04/17/2021 SPEC #: [id number] RECD: 04/16/21 11:08 STATUS: BENJAMIN RECosta #: [id number] LEANA: 04/16/21 00:[address]: Prasanth Del Angel DEPT: BONE MARROW RECD BY: Meri Chen ENTERED: 04/16/21 11:08 SP TYPE: BMB OTHR DR: MD Dr. Raymundo Cary MD Dr. Mark Elderbrock, MD Dr. Mansour Isckarus, MD Dr. Robert Field, MD Dr. Ryan Jin, MD Dr. Roger Macklis, MD Dr. Steve Walston, Sunshine Dan, CHASSIS MECHANIC-C Tissues: A - Bone marrow, NOS B - Bone marrow, NOS C - Bone marrow, NOS Procedures: Decalcification bone/plaque Bone Marrow Aspiration Bone Marrow Core Biopsy Iron Stain Bone Marrow HEADER OPERATION: Bone marrow biopsy and aspirate PRE-OP DIAGNOSIS: Pancytopenia TISSUE SUBMITTED: A - Core, B - Clot, C - Smears, and send outs (flow, cytogenetics, AML and MDS) BONE MARROW DIAGNOSIS Bone marrow core, clot and aspirate smears: Consistent with myelofibrosis with increased blasts. See comment. SJ:pauline 04/21/2021 COMMENT Bone marrow core shows increased reticulin fibers, consistent with myelofibrosis. Trichrome stain also shows focal collagenous fibrosis. Megakaryocytes also show focal dysplastic changes. Flow cytometry study from [facility] shows aberrant HLA-DR negative myeloblast population detected, acute promyelocytic leukemia to be excluded, blast represent 16% of the non-erythroid cells. Plasma cells comprise <1% of the total cells analyzed, are polytypic and show no aberrant antigen expression, ckappa:clambda 0.9. PML/DINAH FISH panel is negative (no PML-DINAH gene fusion). Please see complete flow and FISH panel report in patient?s EMR for further details. Cytogenetic studies are pending at this time. Overall, findings are consistent with myelofibrosis/myelodysplastic changes with increased blasts. Immunohistochemistry ([id number]) supports the above diagnosis. Case has been reviewed in consultation with Dr. Kaplan who concurs with the above diagnosis. IDC:AM BONE MARROW STUDY Slides are reviewed. CBC DATE: 04/16/2021 WBC 1.2; RBC 2.23; HGB 7.8; HCT 22.6; MCV 101.3; RDW 14.5; PLTS 19,000 SEGS 27.8%; LYMPHS 60.5%; MONOS 10.1%; EOS 0.8%; BASOS 0.0% PERIPHERAL SMEAR: Submitted. RBC: Macrocytic anemia WBC: Leukopenia and neutropenia. Rare immature cells suspicious for blasts are noted. The WBC count is compatible to as reported above. PLTS: Markedly decreased. BONE MARROW ASPIRATE DIFFERENTIAL: Not performed ASPIRATE FINDINGS: Site: Not specified Aspicular, Acellular Comment: Aspirate smears show marked hemodilution. Hematopoietic elements are not seen. All the submitted smears are examined. 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 Megakaryocytes: Present and adequate in number and shows dysplastic changes. Bony trabeculae: Unremarkable. Granulomas: Absent. Lymphoid aggregate: Absent. Atypical infiltrate: Absent. Comment: A few immature cells suspicious for blasts are noted. Immunohistochemistry ([id number])) shows mild increase of blasts (~5%) and plasmacytosis (~3 to 5%), polytypic in nature. ASPIRATE CLOT FINDINGS: Site: Not specified Comment: The specimen entirely consists of peripheral blood. Bone marrow spicules are not seen. SPECIAL STAINS WITH MATCHED CONTROLS: Iron: Increased iron deposition is noted. Atypical or ring sideroblasts are not seen. Reticulin: Reticulin shows moderate to marked increase of reticulin fibers consistent with myelofibrosis. PAS: Highlights myeloid cells and megakaryocytes. Trichrome: Focal collagenous fibrosis is also noted. BONE MARROW GROSS A - Received is a container labeled with the patient's name and designated bone marrow. The specimen consists of multiple blood clots with possible fragments of bone measuring in aggregate 2.5 x 2 x 0.2 cm. The bone piece measures 0.5 cm in length. The specimen is totally submitted in one cassette after decalcification. B - Received labeled with the patient's name and designated bone marrow is a specimen that consists of approximately 5 ml of bloody fluid that on filtration yields multiple minute fragments of blood clots measuring in aggregate 2 x 2.5 x 0.2 cm. The specimen is totally submitted in one cassette. C - Also received are 12 unstained and 1 peripheral stained slide. The unstained slides are submitted for appropriate staining. Also received is one green top tube which is sent to our reference lab for flow, cytogenetics, AML and MDS. / SJ:rg 04/16/2021 TC:0 CPT: 16298, 59119, 06958 x2, 16926 x4, 31887 ADDENDUM ADDENDUM ADDENDUM ADDENDUM ADDENDUM ADDENDUM ADDENDUM ADDENDUM ADDENDUM ADDENDUM ADDENDUM ADDENDUM ADDENDUM ADDENDUM ADDENDUM ADDENDUM ADDENDUM ADDENDUM ADDENDUM ADDENDUM ADDENDUM ADDENDUM ADDENDUM ADDENDUM ADDENDUM 04/29/2021 10:52 ADDENDUM 04/29/2021 10:52 ADDENDUM 04/29/2021 10:52 ADDENDUM 04/29/2021 10:52 ADDENDUM 04/29/2021 10:52 CYTOGENETICS REPORT FROM [facility] CYTOGENETIC RESULT: 55,XY,+1,+6,+8,+9,+10,+add(11)(p11.2),naomi(12;17)(q10;q10),+14,+18,+19,+mar[9]/57,XY,+1,+3,+6 ,+8,+9,+10,+add(11)(p11.2),naomi(12;17)(q10;q10),+14,+15,+18,+19,+mar[2]/56,sl2,-18[6]/46,XY[3 ] INTERPRETATION: Myeloid clone detected TEST: AML FISH Panel FISH RESULT: 28% of nuclei positive for three MODH0X6 signals; 32% of nuclei positive for extra KMT2A signals; 8% of nuclei positive for three PML signals INTERPRETATION: ABNORMAL MYELOID CLONE DETECTED TEST: MDS FISH Panel FISH RESULT: 21% of nuclei positive for three chromosome 8 signals. INTERPRETATION: MDS/MPN/AML related clone detected. Please see complete report in e-chart or EMR
--- NOTE | 2021-04-16 | IMM_PTH ---
PATIENT: JOSE MUJICA LOC: MS3 U#:[id number] AGE/SX: 65/M ROOM: [facility] [place] RE04/15/[address]: Dr. Prasanth Del Angel MD : 1955 BED: 1 DIS: 04/17/2021 SPEC #: [id number] RECD: 04/17/21 13:45 STATUS: SOUT REQ #: [id number] LEANA: 04/16/21 00:[address]: Prasanth Del Angel DEPT: IMMUNOHISTOCHEMISTRY RECD BY: Brittany Sunshine ENTERED: 04/17/21 13:46 SP TYPE: IMMUNO OTHR DR: MD Dr. Raymundo Cary MD Dr. Mark Elderbrock, MD Dr. Mansour Isckarus, MD Dr. Robert Field, MD Dr. Ryan Jin, MD Dr. Roger Macklis, MD Dr. Steve Walston, Sunshine Dan, CASE FITTER-C Tissues: A - Bone marrow of iliac crest Procedures: CD138 (add) CD56 (add) KAPPA (add) LAMBDA (add) CD34 (initial) PHYSICIAN & [place] [id number] SPECIMEN INFORMATION: Tissue Source: A ? Bone marrow core Clinical Info: Pancytopenia Specimen Number: [id number] CPT code: 28341, 56803 x4 METHODOLOGY: Deparaffinized sections of prefer/formalin-fixed tissue or PAP/DQ stained slides are incubated with monoclonal/polyclonal antibodies/oligonucleotide probes. Localization is made via biotin free immunoperoxidase method. Appropriate controls are performed and reacted as expected. Results on target cell population are indicated in the following table: RESULTS: ANTIBODY / CLONE RESULT Block A CD34 (QBEnd-10) positive, a few cells CD138 (B-A38) positive, a few cells CD56 (123C3.D5) negative Lambda (polyclonal) positive [place] (polyclonal) positive These tests were developed and their performance characteristics determined by [facility]. They may not have been cleared or approved by the U.[place]. Food and Drug Administration. The FDA has determined that such clearance or approval is not necessary. The above immunohistochemical/dualISH markers are ordered and reviewed by the Pathologist. INTERPRETATION: A. Bone marrow core: Mild increased number of blasts are noted (~5%). Mild plasmacytosis, polytypic in nature (~3-5%). Case has been review in consultation who concurs with the above diagnosis. SJ:pauline 04/18/2021
[2021-04-16 04:56] LABS: Absolute Lymphocyte Count 0.72 X10^3/uL (0.83-4.51); Absolute Neutrophil Count 0.3 X10^3/uL (2.0-7.7); Eosinophil# 0.01 X10^3/uL; Eosinophils% 0.8 % (0-5); Hematocrit 22.6 % (40-54); Hemoglobin 7.8 g/dL (13.0-16.5); Lymphocyte # 0.72 X10^3/ul (0.83-4.51); Lymphocyte % 60.5 % (19-41); Mean Corp Hgb Conc 34.5 g/dL (32-36); Mean Corpuscular Volume 101.3 fL (80-94); Mean Platelet Vol. 11.1 fl (6.2-12.0); Monocyte# 0.12 X10^3/uL; Monocyte% 10.1 % (0-10); NRBC Flagged by Analyzer 0 % (0-5); Neutrophil # 0.33 X10^3/uL (2.7-7.7); Neutrophil % 27.8 % (47-70); POSITIVE COUNT YES; POSITIVE DIFFERENTIAL YES; POSITIVE MORPHOLOGY YES; Platelet Count 19 K/mm3 (150-450); RBC Distribution Width CV 14.5 % (11.6-14.6); RBC Distribution Width SD 52.1 fl (35.1-43.9); Red Blood Count 2.23 M/mm3 (4.6-6.2); White Blood Count 1.2 K/mm3 (4.4-11.0)
[2021-04-16 05:03] LABS: Differential Indicated SCAN CRITERIA MET
[2021-04-16 05:12] LABS: Pathologist Review May foll; Platelet Estimate MKD DEC (ADEQ)
[2021-04-16 05:14] LABS: Ovalocyte 1+
[2021-04-16 05:15] LABS: Anion Gap 6 (5-15); BUN 11 mg/dL (7-18); BUN/Creat Ratio 20.4 RATIO (10-20); Calcium,Total 8.5 mg/dL (8.5-10.1); Chloride 103 mmol/L (98-107); Creatinine, Serum 0.54 mg/dL (0.70-1.30); EST Glomerular Filtration Rate 164 mL/min (>60); Est Glom Filt Rate - Afr Amer 198 mL/min (>60); Estimated Creatinine Clearance 135.46 ml/min; Glucose 168 mg/dL (74-106); Potassium 3.9 mmol/L (3.5-5.1); Sodium Level 135 mmol/L (136-145)
[2021-04-16] MEDS: Insulin Lispro 100 UNIT/ML INSULN.PEN SC ×3 (06:28→16:43)
[2021-04-16 06:36] LABS: Bedside Glucose 174 mg/dL (70-110)
--- NOTE | 2021-04-16 07:32 | PCM.PN.HOSP ---
Subjective Subjective Patient continues to experience further drop in his counts. Scheduled to undergo bone marrow biopsy Objective Data Objective Data Vital Signs: Vital Signs Temp Pulse Resp BP Pulse Ox 98.5 F 86 16 114/72 95 04/16/21 02:51 04/16/21 02:51 04/16/21 02:51 04/16/21 02:51 04/16/21 02:51 Oxygen Delivery Method Room Air Weight: 91.852 kg Body Mass Index (BMI) 30.7 Intake & Output: Intake and Output for Last 24 Hours 04/14/21 04/15/21 04/16/21 23:59 23:59 23:59 Intake Total 770 / 770 250 / 250 Balance 770 / 770 250 / 250 Lab / Micro Data Result Diagrams: 04/16/21 04:01 04/16/21 04:01 Labs: Laboratory Results - last 24 hr 04/15/21 06:00: Diff Path Review Reviewed 04/15/21 07:16: Troponin I High Sens 17 04/15/21 10:47: Vitamin B12 1147 H 04/15/21 10:47: Folate 25.80 04/15/21 10:47: Immature Plt Fraction 4.4, ESR 35 H, Retic Count 0.79, Immature Retic Fraction 12.00, Retic Hgb Equivalent 36.7 H 04/15/21 10:47: TSH 0.99 04/15/21 11:23: Urine Color Yellow, Urine Clarity Clear, Urine pH 5.0, Ur Specific [place] 1.025, Urine Protein 15 H, Urine Glucose (UA) 1000 H, Urine Ketones Negative, Urine Occult Blood Negative, Urine Nitrite Negative, Urine Bilirubin Negative, Urine Urobilinogen Normal, Ur Leukocyte Esterase Negative, Urine RBC 0 SEEN, Urine WBC 0 SEEN, Ur Squamous Epith Cells 0 SEEN, Urine Bacteria 0 SEEN, Urine Mucus 0 SEEN 04/15/21 11:35: POC Glucose 234 H 04/15/21 16:52: POC Glucose 192 H 04/15/21 21:22: POC Glucose 130 H 04/16/21 04:01: WBC 1.2 L*, RBC 2.23 L, Hgb 7.8 L, Hct 22.6 L, MCV 101.3 H, MCH 35.0 H, MCHC 34.5, RDW Std Deviation 52.1 H, RDW Coeff of Jamie 14.5, Plt Count 19 L*, MPV 11.1, Immature Gran % (Auto) 0.800, Neut % (Auto) 27.8 L, Lymph % (Auto) 60.5 H, [place] % (Auto) 10.1 H, Eos % (Auto) 0.8, Baso % (Auto) 0.0, Absolute Neuts (auto) 0.3 L, Absolute Lymphs (auto) 0.72 L, Nucleated RBC % 0, Diff Path Review July foll, Platelet Estimate MKD DEC, Ovalocytes 1+ 04/16/21 04:01: Sodium 135 L, Potassium 3.9, Chloride 103, Carbon Dioxide 26.0, Anion Gap 6, BUN 11, Creatinine 0.54 L, Estim Creat Clear Calc 135.46, Est GFR (MDRD) Af Amer 198, Est GFR (MDRD) Non-Af 164, BUN/Creatinine Ratio 20.4 H, Glucose 168 H, Calcium 8.5 04/16/21 06:25: POC Glucose 174 H Micro: Microbiology 04/15/21 06:32 Nasal Secretion SARS-CoV-2 Antigen (Rapid) - Final Physical Exam Narrative GENERAL: cooperative HEENT: Atraumatic; EYES; Anicteric, Normal Conjunctiva NECK; supple, normal thyroid, RESPIRATORY: Diminished to auscultation CARDIOVASCULAR: Regular S1 S2, GI: soft, normoactive bowel sounds, : No Renal angle tenderness; EXTREMITIES: No edema, no clubbing, MUSCULOSKELETAL: no muscle wasting NEURO: Awake; no lateralizing signs. SKIN: No Rash PSYCH; Flat affect Assessment & Plan Assessment/Plan (1) Pancytopenia: PLAN: Patient is a 65-year-old gentleman presented with progressive generalized weakness found to be pancytopenic 1. Pancytopenia ?Differential diagnosis includes medication induced (leflunomide) versus bone marrow pathology such as malignancy. Patient has been admitted to regular nursing floor for subsequent work-up. Consult has been placed to Dr Martell with oncology. Plan is for patient to undergo CT-guided bone marrow biopsy by radiation oncology. Patient being monitored with daily CBC with plans to transfuse if hemoglobin falls below 7 or platelet count falls below 10K -04/16/2021; Patient continues to experience further drop in his counts. Scheduled to undergo bone marrow biopsy 2. Coronary artery disease ?Status post CABG. Patient had held his Plavix due to his relatively low platelet counts 3. Rheumatoid arthritis ?Patient was on both leflunomide as well as abatacept, he was advised by his registered nurse first assistant to hold these 2 medication as well as being evaluated for his pancytopenia 4. Hypertension - Blood pressure controlled, home medications continued with dose adjustment as needed 5. Dyslipidemia -Patient is on statin therapy, continued at home dose 6. Diabetes mellitus type II -patient's Metformin was held. Placed on Accu-Cheks a.c. and at bedtime and covered with sliding scale insulin 7. DVT prophylaxis ?Chemoprophylaxis contraindicated in view of patient's low platelet count. Charges/Coding Visit Charges Inpatient E&M: 49088 Subs Hosp L3
[2021-04-16] MEDS: Midazolam 2 MG/2 ML Syringe IV (08:40)
[2021-04-16] MEDS: fentaNYL 100 MCG/2 ML Ampul IV (08:43)
[2021-04-16] MEDS: Lidocaine 2% (20 ml mdv) 20 ML Vial INFILT (08:45)
--- NOTE | 2021-04-16 09:00 | CT_ITS ---
PROCEDURE: CT GUIDED BONE marrow biopsy and aspirate. DATE: 04/16/2021. INDICATION: Male, 65 years old. MANUEL cytopenia. PHYSICIAN: Mateusz Emmanuel M.D. RADIATION DOSAGE (If Supplied By Facility): CTDIvol = ( 16.5 ) mGy, DLP = ( 302.23 ) mGycm. Individualized dose optimization techniques were utilized. PROCEDURE: The risks, benefits, and alternatives to the procedure were explained to the patient. The specific risk of hemorrhage requiring further treatment or intervention was detailed and accepted. Follow-up instructions were discussed with the patient as well. Written informed consent was obtained. The patient was brought into the CT suite and placed in the prone position. . An appropriate entry site overlying the posterior right iliac bone was identified. The overlying skin was prepped and draped in the usual sterile fashion. 1% lidocaine was administered subcutaneously for local anesthesia. Conscious sedation was performed. The patient received 1 mg of VERSED and 50 mcg of FENTANYL intravenously. Conscious sedation was started at 8:43 AM and terminated at 9:00 AM. Patient was independently monitored by the department nurse. Under CT guidance, a bone marrow biopsy and bone marrow aspirates of the posterior right iliac bone were performed utilizing an 11-gauge bone marrow core biopsy. The specimens were then placed in in the appropriate fluid and transported to the laboratory for analysis. Hemostasis was obtained. The patient tolerated the procedure well without immediate complications. CT/Biopsy/Inj or Needle Placement IMPRESSION: Successful CT guided bone marrow biopsy and aspirate of the posterior right iliac bone, as described above. The conscious sedation protocol was followed. Electronically Signed: Mateusz Emmanuel MD at 9:30 EST ,
[2021-04-16 09:57] LABS: Bone Marrow Aspiraton SEE PATHOLOGY REPORT
[2021-04-16] MEDS: Carvedilol 6.25 MG Tablet PO ×2 (10:37→20:15)
[2021-04-16] MEDS: Ranolazine 500 MG Tablet 1000 MG PO ×2 (10:37→20:14)
[2021-04-16 12:15] LABS: Bedside Glucose 236 mg/dL (70-110)
[2021-04-16 13:21] LABS: Haptoglobin 395 mg/dL (32-363)
[2021-04-16 13:24] LABS: Lead, Blood Adult 16+yrs < 1 ug/dL (0-4)
[2021-04-16] MEDS: Acetaminophen 325 MG Tablet 650 MG PO (16:40)
[2021-04-16 16:41] LABS: Bedside Glucose 209 mg/dL (70-110)
[2021-04-16] MEDS: NYSTATIN 500,000 UNIT/5 ML UDC 500000 UNIT PO (20:11)
[2021-04-16] MEDS: FLUoxetine 20 MG Capsule 40 MG PO (20:15)
[2021-04-16] MEDS: Atorvastatin Calcium 20 MG Tablet PO (20:15)
[2021-04-16] MEDS: Lisinopril 5 MG Tablet PO (20:15)
[2021-04-16] MEDS: Pantoprazole Sodium 40 MG Tablet PO (20:15)
[2021-04-16 21:36] LABS: Bedside Glucose 126 mg/dL (70-110)
--- NOTE | 2021-04-16 23:07 | NURSING ---
HS meds given early per pt's request.
[2021-04-17 04:00] VITALS: BP 148/89; PULSE 91; RESP 15; RESP 16; TEMP 37.1; O2SAT 95
[2021-04-17 04:58] LABS: Absolute Lymphocyte Count 0.55 X10^3/uL (0.83-4.51); Absolute Neutrophil Count 0.3 X10^3/uL (2.0-7.7); Eosinophil# 0.02 X10^3/uL; Eosinophils% 1.9 % (0-5); Hematocrit 21.7 % (40-54); Hemoglobin 7.6 g/dL (13.0-16.5); Lymphocyte # 0.55 X10^3/ul (0.83-4.51); Lymphocyte % 53.4 % (19-41); Mean Corpuscular Hgb 35.3 pg (27.0-32.0); Mean Corpuscular Volume 100.9 fL (80-94); Mean Platelet Vol. 11.9 fl (6.2-12.0); Monocyte# 0.13 X10^3/uL; Monocyte% 12.6 % (0-10); NRBC Flagged by Analyzer 0 % (0-5); Neutrophil # 0.33 X10^3/uL (2.7-7.7); Neutrophil % 32.1 % (47-70); POSITIVE COUNT YES; POSITIVE DIFFERENTIAL YES; POSITIVE MORPHOLOGY YES; Platelet Count 20 K/mm3 (150-450); RBC Distribution Width CV 14.1 % (11.6-14.6); RBC Distribution Width SD 50.6 fl (35.1-43.9); Red Blood Count 2.15 M/mm3 (4.6-6.2)
[2021-04-17 05:05] LABS: Differential Indicated SCAN CRITERIA MET
[2021-04-17 05:27] LABS: Anion Gap 8 (5-15); BUN 11 mg/dL (7-18); BUN/Creat Ratio 19.4 RATIO (10-20); Calcium,Total 8.5 mg/dL (8.5-10.1); Chloride 102 mmol/L (98-107); Creatinine, Serum 0.57 mg/dL (0.70-1.30); EST Glomerular Filtration Rate 154 mL/min (>60); Est Glom Filt Rate - Afr Amer 187 mL/min (>60); Estimated Creatinine Clearance 128.33 ml/min; Glucose 189 mg/dL (74-106); Potassium 3.8 mmol/L (3.5-5.1); Sodium Level 136 mmol/L (136-145)
[2021-04-17] MEDS: Insulin Lispro 100 UNIT/ML INSULN.PEN SC (07:00)
[2021-04-17 07:11] LABS: Bedside Glucose 158 mg/dL (70-110)
--- NOTE | 2021-04-17 08:01 | PN.HOSP_ITS ---
Subjective Subjective Patient seen no significant change in count. Case was discussed with Dr Martell with oncology today prior plan is for patient to be discharged home with repeat labs ordered as outpatient and for patient to follow-up with him for biopsy results Objective Data Objective Data Vital Signs: Vital Signs Temp Pulse Resp BP Pulse Ox 98.8 F 91 15 148/89 H 95 04/17/21 04:00 04/17/21 04:00 04/17/21 04:00 04/17/21 04:00 04/17/21 04:00 Oxygen Delivery Method [4] Room Air Oxygen Delivery Method [3] Room Air Oxygen Delivery Method [2] Room Air Oxygen Delivery Method [1 ( Room Air Initial Baseline)] Oxygen Delivery Method Room Air Weight: 90.718 kg Body Mass Index (BMI) 30.4 Intake & Output: Intake and Output for Last 24 Hours 04/15/21 04/16/21 04/17/21 23:59 23:59 23:59 Intake Total 770 / 770 650 / 750 250 / 250 Balance 770 / 770 650 / 750 250 / 250 Lab / Micro Data Result Diagrams: 04/17/21 04:34 04/17/21 04:34 Labs: Laboratory Results - last 24 hr 04/15/21 10:47: Lead < 1 04/15/21 10:47: Haptoglobin 395 H 04/16/21 12:00: POC Glucose 236 H 04/16/21 16:31: POC Glucose 209 H 04/16/21 20:21: POC Glucose 126 H 04/17/21 04:34: WBC 1.0 L*, RBC 2.15 L, Hgb 7.6 L, Hct 21.7 L, MCV 100.9 H, MCH 35.3 H, MCHC 35.0, RDW Std Deviation 50.6 H, RDW Coeff of Jamie 14.1, Plt Count 20 L*, MPV 11.9, Immature Gran % (Auto) 0.000, Neut % (Auto) 32.1 L, Lymph % (Auto) 53.4 H, [place] % (Auto) 12.6 H, Eos % (Auto) 1.9, Baso % (Auto) 0.0, Absolute Neuts (auto) 0.3 L, Absolute Lymphs (auto) 0.55 L, Nucleated RBC % 0, Diff Path Review July04/17/21 04:34: Sodium 136, Potassium 3.8, Chloride 102, Carbon Dioxide 26.0, Anion Gap 8, BUN 11, Creatinine 0.57 L, Estim Creat Clear Calc 128.33, Est GFR (MDRD) Af Amer 187, Est GFR (MDRD) Non-Af 154, BUN/Creatinine Ratio 19.4, Glucose 189 H, Calcium 8.5 04/17/21 06:58: POC Glucose 158 H Micro: Microbiology 04/15/21 06:32 Nasal Secretion SARS-CoV-2 Antigen (Rapid) - Final Radiography Diagnostic Testing: Radiology Impression Biopsy CT 04/16/21 09:00 IMPRESSION: Successful CT guided bone marrow biopsy and aspirate of the posterior right iliac bone, as described above. The conscious sedation protocol was followed. Electronically Signed: Mateusz Emmanuel MD at 9:30 EST , Physical Exam Narrative GENERAL: cooperative HEENT: Atraumatic; EYES; Anicteric, Normal Conjunctiva NECK; supple, normal thyroid, RESPIRATORY: Diminished to auscultation CARDIOVASCULAR: Regular S1 S2, GI: soft, normoactive bowel sounds, : No Renal angle tenderness; EXTREMITIES: No edema, no clubbing, MUSCULOSKELETAL: no muscle wasting NEURO: Awake; no lateralizing signs. SKIN: No Rash PSYCH; Flat affect Assessment & Plan Assessment/Plan (1) Pancytopenia: PLAN: Patient is a 65-year-old gentleman presented with progressive generalized weakness found to be pancytopenic 1. Pancytopenia ?Differential diagnosis includes medication induced (leflunomide) versus bone marrow pathology such as malignancy. Patient has been admitted to regular nursing floor for subsequent work-up. Consult has been placed to Dr Martell with oncology. Plan is for patient to undergo CT-guided bone marrow biopsy by radiation oncology. Patient being monitored with daily CBC with plans to transfuse if hemoglobin falls below 7 or platelet count falls below 10K -04/16/2021; Patient continues to experience further drop in his counts. Scheduled to undergo bone marrow biopsy -04/17/2021; patient underwent bone marrow biopsy today prior.Patient seen no significant change in count. Case was discussed with Dr Martell with oncology to day prior plan is for patient to be discharged home with repeat labs ordered as outpatient and for patient to follow-up with him for biopsy results 2. Coronary artery disease ?Status post CABG. Patient had held his Plavix due to his relatively low platelet counts 3. Rheumatoid arthritis ?Patient was on both leflunomide as well as abatacept, he was advised by his membership director to hold these 2 medication as well as being evaluated for his pancytopenia 4. Hypertension - Blood pressure controlled, home medications continued with dose adjustment as needed 5. Dyslipidemia -Patient is on statin therapy, continued at home dose 6. Diabetes mellitus type II -patient's Metformin was held. Placed on Accu-Cheks a.c. and at bedtime and covered with sliding scale insulin 7. DVT prophylaxis ?Chemoprophylaxis contraindicated in view of patient's low platelet count. Charges/Coding Visit Charges Inpatient E&M: 29185 Subs Hosp L2
[2021-04-17 08:43] VITALS: BP 119/79; PULSE 67; RESP 18; TEMP 37.1; O2SAT 96
--- NOTE | 2021-04-17 10:18 | DS.PCM_ITS ---
Providers Date of Admission: 04/15/21 Primary Care Physician: Dr. Jose Luis Leija MD Consultations 04/15/21 07:18 Consult: Oncology/Hematology Routine Consulting Provider: [facility] ([facility]) Reason for Consult: PANCYTOPENIA EMERGENT Consult: Yes MD Notified: Yes Date Notified: 04/15/21 Time Notified: 07:21 Method of Notification: Verbal Reason For Visit: PANCYTOPENIA Diagnosis Discharge Diagnosis (1) Pancytopenia: Status: Acute Code(s): D61.818 - Other pancytopenia Medications at Discharge Home Medications omeprazole 40 mg PO QHS 07/03/14 nitroglycerin 0.4 mg sublingual tablet 0.4 mg SUBLINGUAL Q5M PRN 05/12/17 fluoxetine 40 mg PO QHS 07/29/18 tolbutamide 500 mg tablet 500 mg PO DAILY 12/15/18 lisinopril 5 mg tablet 5 mg PO QHS #90 tab 10/13/19 ranolazine 1,000 mg tablet,extended release,12 hr 1,000 mg PO BID #180 tab 07/29/20 rosuvastatin 10 mg tablet 10 mg PO DAILY #90 tab 09/24/20 metformin 1,000 mg tablet 1,000 mg PO DAILY tab 02/05/21 carvedilol 6.25 mg tablet 6.25 mg PO BID #180 tab 02/10/21 acetaminophen [Tylenol] 650 mg PO Q6H PRN PRN #0 tab 04/17/21 benzocaine-menthol [Cepacol Sore Throat (ebony-men)] 1 ceci MUCOUS MEMBRANE Q2H PRN PRN #0 ea 04/17/21 Hospital Course Summary of Care Provided Minutes Spent on Discharge: 35 Hospital Course: Patient is a 65-year-old gentleman presented with progressive generalized weakness found to be pancytopenic 1. Pancytopenia ?Differential diagnosis includes medication induced (leflunomide) versus bone marrow pathology such as malignancy. Patient has been admitted to regular nursing floor for subsequent work-up. Consult has been placed to Dr Martell with oncology. Plan is for patient to undergo CT-guided bone marrow biopsy by radiation oncology. Patient being monitored with daily CBC with plans to transfuse if hemoglobin falls below 7 or platelet count falls below 10K -04/16/2021; Patient continues to experience further drop in his counts. Scheduled to undergo bone marrow biopsy -04/17/2021; patient underwent bone marrow biopsy today prior.Patient seen no significant change in count. Case was discussed with Dr Matrell with oncology today prior plan is for patient to be discharged home with repeat labs ordered as outpatient and for patient to follow-up with him for biopsy results 2. Coronary artery disease ?Status post CABG. Patient had held his Plavix due to his relatively low platelet counts 3. Rheumatoid arthritis ?Patient was on both leflunomide as well as abatacept, he was advised by his information systems planner to hold these 2 medication as well as being evaluated for his pancytopenia 4. Hypertension - Blood pressure controlled, home medications continued with dose adjustment as needed 5. Dyslipidemia -Patient is on statin therapy, continued at home dose 6. Diabetes mellitus type II -patient's Metformin was held. Placed on Accu-Cheks a.c. and at bedtime and covered with sliding scale insulin 7. DVT prophylaxis ?Chemoprophylaxis contraindicated in view of patient's low platelet count. Physical Exam Narrative GENERAL: cooperative HEENT: Atraumatic; EYES; Anicteric, Normal Conjunctiva NECK; supple, normal thyroid, RESPIRATORY: Diminished to auscultation CARDIOVASCULAR: Regular S1 S2, GI: soft, normoactive bowel sounds, : No Renal angle tenderness; EXTREMITIES: No edema, no clubbing, MUSCULOSKELETAL: no muscle wasting NEURO: Awake; no lateralizing signs. SKIN: No Rash PSYCH; Flat affect Weight / BMI Weight Weight: 90.718 kg Body Mass Index (BMI) 30.4 ABG / Lab / Microbiology Data Result Diagrams: 04/17/21 04:34 04/17/21 04:34 Laboratory: Laboratory Results - last 24 hr 04/15/21 10:47: Lead < 1 04/15/21 10:47: Haptoglobin 395 H 04/16/21 12:00: POC Glucose 236 H 04/16/21 16:31: POC Glucose 209 H 04/16/21 20:21: POC Glucose 126 H 04/17/21 04:34: WBC 1.0 L*, RBC 2.15 L, Hgb 7.6 L, Hct 21.7 L, MCV 100.9 H, MCH 35.3 H, MCHC 35.0, RDW Std Deviation 50.6 H, RDW Coeff of Jamie 14.1, Plt Count 20 L*, MPV 11.9, Immature Gran % (Auto) 0.000, Neut % (Auto) 32.1 L, Lymph % (Auto) 53.4 H, [place] % (Auto) 12.6 H, Eos % (Auto) 1.9, Baso % (Auto) 0.0, Absolute Neuts (auto) 0.3 L, Absolute Lymphs (auto) 0.55 L, Nucleated RBC % 0, Diff Path Review July04/17/21 04:34: Sodium 136, Potassium 3.8, Chloride 102, Carbon Dioxide 26.0, Anion Gap 8, BUN 11, Creatinine 0.57 L, Estim Creat Clear Calc 128.33, Est GFR (MDRD) Af Amer 187, Est GFR (MDRD) Non-Af 154, BUN/Creatinine Ratio 19.4, Glucose 189 H, Calcium 8.5 04/17/21 06:58: POC Glucose 158 H Microbiology: Microbiology 04/15/21 06:32 Nasal Secretion SARS-CoV-2 Antigen (Rapid) - Final D/C Instructions Discharge Diet: No restrictions Discharge Activity: Return to Normal Activity Call your doctor if you observe: Fever of 101 or Higher, Shortness of breath, Fainting spells and Chest pain Meaningful Use Info Meaningful Use Diagnoses (Choose all that apply): None applicable Discharge Plan Admission Admit Date/Time: 04/15/21 07:18 Attending Provider: Prasanth Del Angel Primary Care Provider: Jose Luis Leija Consulting Providers: Prasanth Borges ; Raymundo Martell ; Alberto Vera ; Pete Rodriguez ; Mikcy Maya ; Kristian Sharma ; Srinivas Benoit ; Sunshine Dan TREE WORKER Instructions Patient Instructions: Bone Marrow Aspiration and Biopsy, ED Procedural Sedation, (Adult) Discharge Orders/Prescriptions Prescriptions: New acetaminophen [Tylenol] 325 mg Tablet 650 mg PO Q6H PRN PRN (Reason: Pain Score 1-10/Temp > 100.7 F) Qty: 0 RF: 0 Cepacol Sore Throat (ebony-men) 15-3.6 mg Lozenge 1 ceci mucous membrane Q2H PRN PRN (Reason: SORE THROAT) Qty: 0 RF: 0 Continued nitroglycerin [Nitrostat] 0.4 mg tablet, sublingual 0.4 mg SUBLINGUAL Q5M PRN (Reason: Angina) RF: 0 tolbutamide 500 mg tablet 500 mg PO DAILY RF: 0 metformin 1,000 mg tablet 1,000 mg PO DAILY RF: 0 fluoxetine 40 MG capsule 40 mg PO QHS RF: 0 omeprazole 40 MG capsule 40 mg PO QHS RF: 0 lisinopril 5 mg tablet 5 mg PO QHS Qty: 90 RF: 3 ranolazine 1,000 mg tablet extended release 12 hr 1,000 mg PO BID Qty: 180 RF: 3 rosuvastatin [Crestor] 10 mg tablet 10 mg PO DAILY Qty: 90 RF: 3 carvedilol 6.25 mg tablet 6.25 mg PO BID Qty: 180 RF: 3 Discontinued meloxicam 15 MG tablet 15 mg PO QHS RF: 0 Other Ambulatory Orders: CBC W/Diff, Automated (QODAY) Timeframe: 20210418 Facility: [facility] - Location: Laboratory Ordered By: Dr. Prasanth Del Angel CBC W/Diff, Automated (QODAY) Timeframe: 20210420 Facility: [facility] - Location: Laboratory Ordered By: Dr. Prasanth Del Angel CBC W/Diff, Automated (QODAY) Timeframe: 20210422 Facility: [facility] - Location: Laboratory Ordered By: Dr. Prasanth Del Angel Referrals / Follow Up: Raymundo Martell MD [NON-STAFF] - In 1 Day Jose Luis Leija MD [Primary Care Provider] - In 1 Week Disposition Disposition (needs filled in before D/C Order can be placed): Home Health Service Charges/Coding Visit Charges Inpatient E&M: 10454 Disch Hosp
--- NOTE | 2021-04-17 10:25 | CASEMGMT ---
RN CM in to pt room, at bedside. Discussed options of HHC. Pt will need lab draws and prefers to have them in the home d/t taxing effort to leave d/t sob and weakness. Pt declines needing any therapy at home despite having weakness. Pt declines needing a SN for education. Option discussed of the outreach lab. Pt and agreeable to this. Pt is requesting a w/c for pt but pt does not want one. Pt states it will make him more lazy. Pt requesting all appts be made for pt. TC to Outreach lab, spoke with Lia. Lab does not do weekend draws. Discussed with hospitalist, orders received. Faxed to lab at this time.
[2021-04-17 11:00] LABS: Copper, Serum or Plasma 150 ug/dL (69-132)
--- NOTE | 2021-04-17 11:13 | NURSING ---
pt being dc'd, he wants to take daily meds at home
[2021-04-17 15:24] LABS: Pathologist Review Reviewed
[2021-04-28 12:49] LABS: Miscellaneous Lab Procedure SEE PATH REPORT; Miscellaneous Lab Procedure 2 SEE PATH REPORT; Miscellaneous Lab Procedure 3 SEE PATH REPORT; Miscellaneous Lab Procedure 4 SEE PATH REPORT
== END 2021-04-17 11:40 | disposition home or self-care (01) | DRG 809 ==
LOC: ED 07:17 → MS3 07:38
PROVIDERS: Internal Medicine Medical Oncology; Admitting Provider Internal Medicine; Emergency Provider Emergency Medicine; PCP Family Medicine; Visit Provider Internal Medicine
DX: D61.818 Other pancytopenia (principal); D75.81 Myelofibrosis; E11.9 Type 2 diabetes mellitus without complications; M06.9 Rheumatoid arthritis, unspecified; I25.5 Ischemic cardiomyopathy; I10 Essential (primary) hypertension; I25.10 Atherosclerotic heart disease of native coronary artery without angina pectoris; E78.5 Hyperlipidemia, unspecified; I25.2 Old myocardial infarction; Z87.891 Personal history of nicotine dependence; Z79.84 Long term (current) use of oral hypoglycemic drugs; Z86.73 Personal history of transient ischemic attack (TIA), and cerebral infarction without residual deficits; Z79.1 Long term (current) use of non-steroidal anti-inflammatories (NSAID); Z95.1 Presence of aortocoronary bypass graft; Z95.5 Presence of coronary angioplasty implant and graft; Z20.822 Contact with and (suspected) exposure to COVID-19; Z86.16 Personal history of COVID-19
CPT/HCPCS: 36415; 77012; 80048; 80053; 81001; 82525; 82607; 82746; 82962; 83010; 83655; 84443; 84484; 85025; 85045; 85610; 85652; 85730; 87426; 88305; 88311; 88313; 88341; 88342; 93005; 99156; 99251; 99285; J7040; A4216; G0463

== ENCOUNTER 2021-04-18 08:00 | Outpatient (CLI) | payer OTHER, MEDICARE, SELFPAY ==
[2021-04-18 11:46] LABS: Absolute Lymphocyte Count 0.62 X10^3/uL (0.83-4.51); Absolute Neutrophil Count 0.4 X10^3/uL (2.0-7.7); Eosinophil# 0.03 X10^3/uL; Eosinophils% 2.7 % (0-5); Hematocrit 22.8 % (40-54); Hemoglobin 8.3 g/dL (13.0-16.5); Lymphocyte # 0.62 X10^3/ul (0.83-4.51); Lymphocyte % 55.9 % (19-41); Mean Corp Hgb Conc 36.4 g/dL (32-36); Mean Corpuscular Hgb 36.7 pg (27.0-32.0); Mean Corpuscular Volume 100.9 fL (80-94); Mean Platelet Vol. 12.2 fl (6.2-12.0); NRBC Flagged by Analyzer 0 % (0-5); Neutrophil # 0.35 X10^3/uL (2.7-7.7); Neutrophil % 31.5 % (47-70); POSITIVE COUNT YES; POSITIVE DIFFERENTIAL YES; POSITIVE MORPHOLOGY YES; Platelet Count 22 K/mm3 (150-450); RBC Distribution Width CV 14.4 % (11.6-14.6); RBC Distribution Width SD 51.6 fl (35.1-43.9); Red Blood Count 2.26 M/mm3 (4.6-6.2)
[2021-04-18 11:51] LABS: International Normalized Ratio 1.1; Prothrombin Time (Protime)PT. 13.5 SECONDS (11.7-14.9)
[2021-04-18 11:52] LABS: Partial Thromboplast Time 31.1 Seconds (24.1-36.2)
[2021-04-18 11:53] LABS: Differential Indicated SCAN CRITERIA MET
[2021-04-18 12:44] LABS: White Blood Count 1.1 K/mm3 (4.4-11.0)
[2021-04-18 13:18] LABS: Macrocytosis 1+; Ovalocyte 1+; Platelet Estimate MKD DEC (ADEQ); Poikilocytosis 1+
[2021-04-21 13:51] LABS: Pathologist Review Reviewed
== END 2021-04-18 23:59 | disposition home or self-care (01) ==
PROVIDERS: PCP Family Medicine; Visit Provider Internal Medicine
DX: D61.818 Other pancytopenia (principal)
CPT/HCPCS: 36415; 85025; 85610; 85730

== ENCOUNTER 2021-04-21 10:42 | Outpatient (RCR) | payer OTHER, MEDICARE, SELFPAY ==
[2021-04-21 11:08] LABS: Absolute Lymphocyte Count 0.83 X10^3/uL (0.83-4.51); Absolute Neutrophil Count 0.2 X10^3/uL (2.0-7.7); Basophil# 0.01 X10^3/uL; Basophil% 0.8 % (0-1); Eosinophil# 0.01 X10^3/uL; Eosinophils% 0.8 % (0-5); Hemoglobin 7.6 g/dL (13.0-16.5); Lymphocyte # 0.83 X10^3/ul (0.83-4.51); Lymphocyte % 70.3 % (19-41); Mean Corp Hgb Conc 36.2 g/dL (32-36); Mean Corpuscular Hgb 36.2 pg (27.0-32.0); Mean Platelet Vol. 10.8 fl (6.2-12.0); Monocyte# 0.08 X10^3/uL; Monocyte% 6.8 % (0-10); NRBC Flagged by Analyzer 0 % (0-5); Neutrophil # 0.24 X10^3/uL (2.7-7.7); Neutrophil % 20.5 % (47-70); POSITIVE COUNT YES; POSITIVE DIFFERENTIAL YES; POSITIVE MORPHOLOGY YES; Platelet Count 21 K/mm3 (150-450); RBC Distribution Width CV 14.2 % (11.6-14.6); RBC Distribution Width SD 51.2 fl (35.1-43.9); White Blood Count 1.2 K/mm3 (4.4-11.0)
[2021-04-21 11:11] LABS: Differential Indicated SCAN CRITERIA MET
[2021-04-21 11:35] LABS: Anisocytosis 2+; Platelet Estimate MKD DEC (ADEQ)
[2021-04-23 09:25] LABS: Pathologist Review Reviewed
[2021-04-28 11:52] LABS: Absolute Lymphocyte Count 0.44 X10^3/uL (0.83-4.51); Absolute Neutrophil Count 0.4 X10^3/uL (2.0-7.7); Hematocrit 21.7 % (40-54); Hemoglobin 7.6 g/dL (13.0-16.5); Lymphocyte # 0.44 X10^3/ul (0.83-4.51); Mean Corpuscular Hgb 36.2 pg (27.0-32.0); Mean Corpuscular Volume 103.3 fL (80-94); Mean Platelet Vol. 10.7 fl (6.2-12.0); Monocyte# 0.08 X10^3/uL; Monocyte% 9.1 % (0-10); NRBC Flagged by Analyzer 2.3 % (0-5); Neutrophil # 0.35 X10^3/uL (2.7-7.7); Neutrophil % 39.8 % (47-70); POSITIVE COUNT YES; POSITIVE DIFFERENTIAL YES; POSITIVE MORPHOLOGY YES; RBC Distribution Width CV 15.1 % (11.6-14.6); RBC Distribution Width SD 54.6 fl (35.1-43.9)
[2021-04-28 12:16] LABS: Differential Indicated SCAN CRITERIA MET
[2021-04-28 13:07] LABS: Platelet Estimate MKD DEC (ADEQ)
[2021-04-29 15:17] LABS: Pathologist Review Reviewed
[2021-04-30 11:05] LABS: White Blood Count 0.9 K/mm3 (4.4-11.0)
[2021-04-30 11:06] LABS: Platelet Count 24 K/mm3 (150-450)
== END 2021-04-21 23:59 | disposition home or self-care (01) ==
LOC: LAB 10:42
PROVIDERS: PCP Family Medicine; Referring Provider Internal Medicine Medical Oncology; Visit Provider Internal Medicine
DX: D61.818 Other pancytopenia (principal)
CPT/HCPCS: 36415; 85025

== ENCOUNTER 2021-04-23 08:55 | Outpatient (CLI) | payer OTHER, MEDICARE, SELFPAY ==
[2021-04-23 11:03] LABS: Immature Platelet Fraction 3.3 % (1.0-7.9); RET-HE 38.1 pg (30-35); Reticulocyte Count 0.93 % (0.5-1.5)
[2021-04-23 11:15] LABS: Absolute Lymphocyte Count 0.82 X10^3/uL (0.83-4.51); Absolute Neutrophil Count 0.2 X10^3/uL (2.0-7.7); Eosinophil# 0.02 X10^3/uL; Eosinophils% 1.7 % (0-5); Hematocrit 21.6 % (40-54); Hemoglobin 7.8 g/dL (13.0-16.5); Lymphocyte # 0.82 X10^3/ul (0.83-4.51); Lymphocyte % 70.7 % (19-41); Mean Corp Hgb Conc 36.1 g/dL (32-36); Mean Corpuscular Hgb 36.6 pg (27.0-32.0); Mean Corpuscular Volume 101.4 fL (80-94); Mean Platelet Vol. 11.6 fl (6.2-12.0); Monocyte# 0.07 X10^3/uL; NRBC Flagged by Analyzer 0 % (0-5); Neutrophil # 0.24 X10^3/uL (2.7-7.7); Neutrophil % 20.7 % (47-70); POSITIVE COUNT YES; POSITIVE DIFFERENTIAL YES; POSITIVE MORPHOLOGY YES; Platelet Count 23 K/mm3 (150-450); RBC Distribution Width CV 14.4 % (11.6-14.6); RBC Distribution Width SD 51.8 fl (35.1-43.9); Red Blood Count 2.13 M/mm3 (4.6-6.2)
[2021-04-23 11:16] LABS: Differential Indicated SCAN CRITERIA MET
[2021-04-23 11:17] LABS: International Normalized Ratio 1.2; Prothrombin Time (Protime)PT. 14.6 SECONDS (11.7-14.9)
[2021-04-23 11:18] LABS: Platelet Count 22 K/mm3 (150-450)
[2021-04-23 11:20] LABS: D-Dimer Quantitative (DVT/PE) 1.14 FEU/ug/m (0.27-0.49)
[2021-04-23 11:22] LABS: White Blood Count 1.2 K/mm3 (4.4-11.0)
[2021-04-23 11:52] LABS: Anisocytosis 1+; Ovalocyte 2+; Platelet Estimate MKD DEC (ADEQ); Red Cell Morphology N CHROM NORMAL (NORM C&C)
[2021-04-24 13:16] LABS: Pathologist Review Reviewed
[2021-04-24 17:07] LABS: Alpha-1-Globulins 0.4 g/dL (0.0-0.4); Alpha-2-Globulins 1.1 g/dL (0.4-1.0); Free Kappa Light Chains 19.8 mg/L (3.3-19.4); Free Lambda Light Chains 14.6 mg/L (5.7-26.3); Gamma Globulin 0.7 g/dL (0.4-1.8); Immunoglobulin A 376 mg/dL (61-437); Immunoglobulin G 615 mg/dL (603-1613); Immunoglobulin M 121 mg/dL (20-172); PROEL- TOTAL PROTEIN 6.5 g/dL (6.0-8.5)
== END 2021-04-23 23:59 | disposition home or self-care (01) ==
PROVIDERS: PCP Family Medicine; Referring Provider Internal Medicine Medical Oncology; Visit Provider Internal Medicine
DX: D69.6 Thrombocytopenia, unspecified (principal); D75.81 Myelofibrosis; D61.818 Other pancytopenia
CPT/HCPCS: 36415; 82784; 83883; 84165; 85025; 85045; 85379; 85610; 85730; 86140; 86334

== ENCOUNTER 2021-04-24 06:29 | Outpatient (CLI) | payer OTHER, MEDICARE, SELFPAY ==
--- NOTE | 2021-04-24 06:31 | CT_ITS ---
STUDY: CTA CHEST REASON FOR EXAM: Male, 65 years old. R/O PE. Two-week history of shortness of breath. Pancytopenia. RADIATION DOSAGE (If Supplied By Facility): CTDIvol = ( 20.51 ) mGy, DLP = ( 486.93 ) mGycm TECHNIQUE: The examination was performed with the intravenous administration of IV 100mL Isovue-370. Post-processing of the angiographic images was performed, with multiplanar reformation and 3D reconstruction. Individualized dose optimization techniques were used for this CT. COMPARISON: None. FINDINGS: Normal enhancement of the main pulmonary artery and right and left pulmonary arteries. Normal enhancement of the bilateral peripheral pulmonary arteries. There is no demonstrated pulmonary embolism. Normal thoracic aorta and visualized great vessels. There is no demonstrated aortic dissection. Sternal cerclage wires and vascular clips are present from a prior sternotomy and coronary artery bypass graft procedure (CABG). There are calcifications of the coronary arteries. Normal mediastinum. Normal hilar regions. Normal visualized trachea and bronchi. The lungs are well expanded. Mild degree of scarring and bronchiectasis in the posterior medial segment of the right lower lobe. Normal pleura. Normal chest wall structures. There are degenerative changes of thoracic spine. Normal visualized upper abdomen. CT/CTA Chest W/WO Contrast IMPRESSION: No evidence of pulmonary emboli. Mild scarring and bronchiectasis in the posterior medial segment of the right lower lobe. Electronically Signed: Mateusz Emmanuel MD at 9:23 EST ,
--- NOTE | 2021-04-24 06:31 | US_ITS ---
EXAM: US ABDOMEN COMPLETE : 1955 CLINICAL INDICATION: THROMBOCYTOPENIA TECHNIQUE: Real-time ultrasound of the abdomen with image documentation. This report was created using [employer] report generation technology. COMPARISON: None. FINDINGS: LIVER: There is a diffuse increase in hepatic parenchymal echogenicity, consistent with fatty infiltration. Question focal fat sparing within hepatic segment 4. No intrahepatic biliary ductal dilation. GALLBLADDER: Unremarkable. No shadowing gallstone. No gallbladder wall thickening is demonstrated. No pericholecystic fluid. Negative sonographic Humphreys's sign. COMMON BILE DUCT: Unremarkable as visualized. The proximal common bile duct is within normal limits for the patient's age. PANCREAS: Unremarkable as visualized. No focal abnormality is demonstrated in the pancreas. No pancreatic ductal dilatation. KIDNEYS: There is no hydronephrosis. A 5 mm central left renal stone is noted.. No focal lesion or perinephric collection is demonstrated. SPLEEN: Unremarkable. The spleen is normal in size and homogeneous in echotexture. AORTA: Unremarkable. Submitted longitudinal images of the intra-abdominal aorta demonstrate no gross abnormalities and are unremarkable. INFERIOR VENA CAVA: Unremarkable. The IVC is patent. FREE FLUID: There is no free fluid. US/Abdomen Complete IMPRESSION: Parenchymal liver disease. Left nephrolithiasis. at 0828 Reported and signed by: Riccardo Magana MD Electronically Signed: Riccardo Magana MD at 8:27 EST ,
[2021-04-24 09:26] LABS: AST(SGOT) 14 U/L (15-37); Alanine Aminotransfer ALT/SGPT 23 U/L (16-61); Albumin, Serum 2.8 g/dL (3.2-5.0); Alkaline Phosphatase 118 U/L (45-117); Bilirubin, Direct 0.18 mg/dL (0.00-0.30); Cholesterol 166 mg/dL (200); Globulin 4.6 g/dL (2.2-4.2); High Density Lipoprotein 42 mg/dL; Protein, Total 7.4 g/dL (6.4-8.2); Triglycerides 100 mg/dL; Very Low Density Lipoprotein 20 mg/dL (5-40)
== END 2021-04-24 23:59 | disposition home or self-care (01) ==
PROVIDERS: Nurse Practitioner Family; PCP Family Medicine; Referring Provider Internal Medicine Medical Oncology; Visit Provider Internal Medicine Medical Oncology
DX: E78.00 Pure hypercholesterolemia, unspecified (principal); D75.81 Myelofibrosis; D61.818 Other pancytopenia; E78.5 Hyperlipidemia, unspecified; R06.02 Shortness of breath
CPT/HCPCS: 36415; 71275; 76700; 80061; 80076; Q9967

== ENCOUNTER 2021-04-28 10:54 | Outpatient (CLI) | payer OTHER, MEDICARE, SELFPAY | END 2021-04-28 23:59 | disposition home or self-care (01) | LOC: LAB 11:02 | PROVIDERS: PCP Family Medicine; Visit Provider Internal Medicine Rheumatology | DX: M06.00 Rheumatoid arthritis without rheumatoid factor, unspecified site (principal); M17.0 Bilateral primary osteoarthritis of knee; M25.551 Pain in right hip; Q66.70 Congenital pes cavus, unspecified foot; K21.00 Gastro-esophageal reflux disease with esophagitis, without bleeding; F32.89 Other specified depressive episodes; M47.892 Other spondylosis, cervical region; M47.897 Other spondylosis, lumbosacral region; I70.90 Unspecified atherosclerosis; E78.5 Hyperlipidemia, unspecified; Z79.899 Other long term (current) drug therapy ==

== ENCOUNTER 2021-05-04 12:29 | Inpatient (IN) | payer OTHER, MEDICARE, SELFPAY ==
[2021-05-04] VITALS (11 sets, daily range): BP systolic 116–140; BP diastolic 75–92; PULSE 61–90; RESP 10–20; TEMP 35.7–36.7; O2SAT 98–100; BMI 28.7
--- NOTE | 2021-05-04 13:19 | RAD_ITS ---
STUDY: X-RAY CHEST REASON FOR EXAM: Male, 65 years old. weakness TECHNIQUE: Single AP portable view of the chest. COMPARISON: 01/05/2019 FINDINGS: Status post median sternotomy. Status post anterior cervical discectomy and fusion lower cervical spine. The lungs are clear and expanded. There is no demonstrated pleural abnormality. Normal size heart. Normal mediastinum and eunice. Normal visualized pulmonary arteries. Normal visualized aortic arch and descending thoracic aorta. Normal visualized thoracic spine. Status post left shoulder reverse arthroplasty. There is no demonstrated abnormality of the visualized soft tissue structures of the upper abdomen. RAD/Chest 1 View (Portable) IMPRESSION: No active disease. Electronically Signed: Eduard Davison MD at 14:57 EST ,
--- NOTE | 2021-05-04 13:20 | EKG12_ITS ---
Test Reason : Blood Pressure : / mmHG Vent. Rate : 079 BPM Atrial Rate : 079 BPM P-R Int : 168 ms QRS Dur : 104 ms QT Int : 390 ms P-R-T Axes : 027 -13 118 degrees QTc Int : 447 ms Sinus rhythm with frequent Premature ventricular complexes in a pattern of bigeminy Lateral infarct , age undetermined Inferior-posterior infarct , age undetermined Abnormal ECG Confirmed by ROMULO AYALA, CHARLINE ([id number]), publications editor MARLEY YAN ([id number]) on 05/06/2021 11:04:50 AM Referred By: HAIDER Confirmed By:CHARLINE SEBASTIAN MD
--- NOTE | 2021-05-04 13:21 | EDS_ITS ---
HPI History of Present Illness Chief Complaint: Fatigue Informant: patient Onset/Context/Timing Onset: Weeks Context: Gradual Onset Timing: Continuous Current Severity: Mild Maximum Severity: Mild Narrative Narrative: 65-year-old male presently with history of CAD, MO, cardiac stents with cardiomyopathy. He is also diabetic. In the last several weeks he was diagnosed with acute myelogenous leukemia and was admitted to [facility]. There he received blood and platelet transfusions along with a magnesium transfusion. He states the last several days he has been very fatigued. Today while taking a shower he felt so weak he lowered himself to the floor. called [facility] who referred them to come into our emergency department. Prior similar symptoms: Yes Recent Illness/Hospitalization: Yes [facility] Medical History (Updated 05/04/21 @ 15:[address] Ray Mullins MD) Atherosclerotic heart disease of [place] coronary artery without angina pectoris Bilateral carotid artery stenosis CVA (cerebral vascular accident) Essential (primary) hypertension Hyperlipidemia Ischemic cardiomyopathy Old inferior wall myocardial infarction Rheumatoid arthritis Septic arthritis of knee, left Home Medications nitroglycerin 0.4 mg sublingual tablet 0.4 mg SUBLINGUAL Q5M PRN 05/12/17 [History Last Taken Unknown] rosuvastatin 10 mg tablet 10 mg PO DAILY #90 tab 09/24/20 [Rx Last Taken Unknown] carvedilol 6.25 mg tablet 6.25 mg PO BID #180 tab 02/10/21 [Rx Last Taken Unknown] benzocaine-menthol [Cepacol Sore Throat (ebony-men)] 1 ceci MUCOUS MEMBRANE Q2H PRN PRN #0 ea 04/17/21 [Rx Last Taken Unknown] dexamethasone 4 mg tablet 4 mg PO DAILY 14 Days #14 tab 04/23/21 [Rx Last Taken Unknown] Docusate Plus 1,000 mg PO/SL BID 05/04/21 [History Last Taken Unknown] acyclovir 800 mg PO BID 05/04/21 [History Last Taken Unknown] allopurinol 300 mg PO DAILY 05/04/21 [History Last Taken Unknown] levofloxacin 500 mg PO DAILY 05/04/21 [History Last Taken Unknown] lisinopril 10 mg PO QHS 05/04/21 [History Last Taken Unknown] ranolazine 500 mg PO BID 05/04/21 [History Last Taken Unknown] sennosides 17.2 mg PO/SL BID 05/04/21 [History Last Taken Unknown] Allergy/AdvReac Type Severity Reaction Status Date / Time No Known Allergies Allergy Verified 05/04/21 12:30 Family History Father CAD (coronary artery disease) Diabetes Surgical History H/O cervical spine surgery (03/2019) H/O coronary artery bypass surgery (05/22/03) History of coronary artery stent placement (04/14/16) History of left knee surgery (08/2018) History of shoulder surgery Social History Smoking Status: Former smoker alcohol intake: never substance use type: does not use caffeine: Yes Type: coffee Number of servings: 2 what type of physical activity do you participate in: walking and bicycling frequency: daily duration: 60-90 minutes/day seatbelt use: always do you feel safe at home: Yes ROS ROS ED ROS Narrative Generalized weakness. He denies any nausea, vomiting, diarrhea or fever. He denies any dysuria. He denies any cough or shortness of breath. Review of Systems ROS Unobtainable: Denies due to encephalopathy Constitutional Constitutional ED: Denies fever(s) Eyes Eyes: Denies change in vision ENT ENT ED: Denies ear pain Cardiovascular Cardiovascular: Denies chest pain Respiratory/Chest Respiratory/Chest: Denies cough or dyspnea Gastrointestinal Gastrointestinal: Denies abdominal pain, constipation, diarrhea, melena, nausea or vomiting Genitourinary Genitourinary ED: Denies dysuria or hematuria Musculoskeletal Musculoskeletal: Denies myalgias Integumentary Denies rash Neurologic Neurologic: Denies headache(s) Psychiatric Psychiatric: Denies depression Endocrine Endocrinology: Denies polyuria Allergic/Immunologic Allergic/Immunologic ED: Denies urticaria EXAM Physical Exam Narrative Exam Narrative: 65-year-old male no acute distress. Vital signs stable afebrile. Initial blood pressure 140/89. Pulse ox 90% on room air no signs hypoxia. H EENT exam unremarkable. Metric members. Neck nontender no lymphadenopathy. Lungs clear to auscultation bilaterally. Heart regular rate and rhythm rate about 90 no murmur. Abdomen soft nontender normal bowel sounds no peritoneal signs. Moving all 4 extremities. Calves are nontender without edema. Neurologically is awake and alert. No focal motor deficits. Const Vital Signs: 05/04/21 12:30 05/04/21 12:33 05/04/21 12:34 Temperature 96.6 F L 96.6 F L Temperature Source Temporal Temporal Pulse Rate 85 90 Respiratory Rate 18 16 Respiratory Effort Normal Respiratory Pattern Normal Blood Pressure 140/89 H 140/89 H Blood Pressure Mean 106 106 Pulse Ox 98 99 Oxygen Delivery Method Room Air Room Air 05/04/21 13:33 05/04/21 14:00 05/04/21 15:00 Temperature 96.3 F L 96.3 F L 96.7 F L Temperature Source Temporal Temporal Temporal Pulse Rate 81 76 71 Respiratory Rate 10 L 20 H 19 H Respiratory Effort Respiratory Pattern Blood Pressure 126/92 H 126/92 H 127/81 H Blood Pressure Mean 103 103 96 Pulse Ox 100 100 98 Oxygen Delivery Method Room Air Room Air Room Air Positive well nourished and well developed; Negative for cachectic, contractures or unkempt General Appearance ED: well developed, NAD and pallor; Negative for unkempt, cachectic, contractures, cyanotic or diaphoretic Nutritional Appearance: Negative for cachectic HEENT Reports moist mucous membranes Negative for trauma Eyes PERRL and EOMs intact bilaterally General Eye ED: Yes pale conjunctiva; Negative for scleral icterus Neck no lymphadenopathy, supple and no JVD General: Negative for tenderness Chest Wall inspection of chest normal and palpation of chest normal Resp normal respiratory effort and clear to auscultation bilaterally Effort and Inspection: Negative for pain with movement Auscultation: Negative for rales, rhonchi or wheezes Cardio regular rate, regular rhythm, S1 normal heart sound, S2 normal heart sound and no murmurs GI normal to inspection, nondistended, normoactive bowel sounds, non-tender, non- distended and no masses Inspection: Negative for abdominal distention Auscultation: normoactive bowel sounds Palpation: soft; Negative for tender, guarding or rebound tenderness present Back/Spine no CVA tenderness General Back: Negative for CVA tenderness Cervical Spine: Negative for cervical spine tenderness Thoracic Spine / Upper Back: Negative for thoracic spinal tenderness or paraspinal muscle tenderness Extremity normal to inspection General Extremety ED: Negative for edema or tenderness General Extremity: Negative for edema Neuro oriented x3, CN's II-XII intact bilaterally and no sensory deficits noted Sensorium / Orientation: alert; Negative for orientation impaired, lethargic or stuporous Motor Exam: strength 5/5 throughout Psych Appearance: Negative for unkempt Skin no rashes or lesions noted, no wounds and skin turgor normal General Skin Exam: pallor; Negative for jaundice MDM MDM MDM Narrative Medical decision making narrative: 65-year-old male with recent diagnosed acute myelogenous leukemia. He also has a history of heart disease and diabetes. Complain generalized fatigue. Repeat exam patient is doing well at 3:40 PM. We discussed his lab results. He will be given a liter of fluid and subcu insulin for his hyper or glycemia. I have already spoken to the hospitalist and the oncologist on page about admissio n.. Patient and are comfortable with the plan. Lab Data Attestation: I reviewed the patient's lab results. Lab results narrative: CBC shows a white count of 0.9. H&H 8.5 and 24. Platelets of 37,000. Electrolytes show a gap of 12 and BUN of 19 and creatinine 0.8. Glucose of 470. Liver enzymes unremarkable. Alk phos 134. Urinalysis shows glucose and ketones but no signs of infection. Chest x-ray is unremarkable. Labs: Laboratory Results - last 24 hr 05/04/21 05/04/21 05/04/21 12:43 12:43 13:40 WBC 0.9 L* RBC 2.43 L Hgb 8.5 L Hct 24.2 L MCV 99.6 H MCH 35.0 H MCHC 35.1 RDW Std Deviation 65.2 H RDW Coeff of Jamie 18.9 H Plt Count 37 L* MPV 10.0 Immature Gran % (Auto) 5.600 H Neut % (Auto) 47.2 Lymph % (Auto) 36.0 [place] % (Auto) 11.2 H Eos % (Auto) 0.0 Baso % (Auto) 0.0 Absolute Neuts (auto) 0.4 L Absolute Lymphs (auto) 0.32 L Nucleated RBC % 0 Differential Comment Diff Path Review May foll Platelet Estimate MKD DEC Anisocytosis 1+ Ovalocytes 1+ Sodium 133 L Potassium 4.0 Chloride 99 Carbon Dioxide 22.0 Anion Gap 12 BUN 19 H Creatinine 0.83 Estim Creat Clear Calc 88.13 Est GFR (MDRD) Af Amer 120 Est GFR (MDRD) Non-Af 99 BUN/Creatinine Ratio 22.9 H Glucose 470 H* Calcium 8.8 Total Bilirubin 1.30 H AST 9 L ALT 25 Alkaline Phosphatase 134 H Total Protein 6.8 Albumin 3.2 Globulin 3.6 Albumin/Globulin Ratio 0.9 Urine Color Yellow Urine Clarity Clear Urine pH 6.0 Ur Specific [place] 1.015 Urine Protein Negative Urine Glucose (UA) 1000 H Urine Ketones 15 H Urine Occult Blood Negative Urine Nitrite Negative Urine Bilirubin Negative Urine Urobilinogen Normal Ur Leukocyte Esterase Negative Urine RBC 0 SEEN Urine WBC 0 SEEN Ur Squamous Epith Cells 0 SEEN Urine Bacteria 0 SEEN Urine Mucus 0 SEEN Radiography Chest X-Ray - ED: 1 View, Read by ED Physician, Heart, Lungs, Mediastinum, Bony Structures, No Acute Disease and Chronic Changes Diagnostic Testing: Clinical Impression(s) from Imaging Studies Chest X-Ray 05/04/21 13:19 IMPRESSION: No active disease. Electronically Signed: Eduard Davison MD at 14:57 EST , Rhythm Strip Rhythm Strip: Sinus Rhythm Rate: 84 Ectopy: None EKG Initial EKG: Attestation: I personally reviewed and interpreted this EKG as follows: Interpretation: Sinus Rhythm and No Acute Injury Pattern Comments: Sinus rhythm rate of 84 no acute signs of MO or ischemia. Old inferior MO.. Unchanged from prior EKG from April. Prior EKG tracings: available for review Prior: Unchanged Treatment and Re-Evaluation Comments:: Repeat EKG was done Discharge Plan Triage Chief Complaint: Fatigue ED Provider: Ray Mullins Dx/Rx/DC Orders Clinical Impression: Weakness, Pancytopenia, Acute myelogenous leukemia, Hyperglycemia due to diabetes mellitus Prescriptions: No Action nitroglycerin [Nitrostat] 0.4 mg tablet, sublingual 0.4 mg SUBLINGUAL Q5M PRN (Reason: Angina) RF: 0 dexamethasone [Decadron] 4 mg tablet 4 mg PO DAILY 14 Days Qty: 14 RF: 0 Cepacol Sore Throat (ebony-men) 15-3.6 mg Lozenge 1 ceci mucous membrane Q2H PRN PRN (Reason: SORE THROAT) Qty: 0 RF: 0 acyclovir 800 mg tablet 800 mg PO BID RF: 0 allopurinol 300 mg tablet 300 mg PO DAILY RF: 0 levofloxacin 500 mg tablet 500 mg PO DAILY RF: 0 lisinopril 5 mg tablet 10 mg PO QHS RF: 0 ranolazine 500 mg tablet extended release 12 hr 500 mg PO BID RF: 0 Docusate Plus 1,000 mg PO/SL BID RF: 0 sennosides 17.2 mg PO/SL BID RF: 0 rosuvastatin [Crestor] 10 mg tablet 10 mg PO DAILY Qty: 90 RF: 3 carvedilol 6.25 mg tablet 6.25 mg PO BID Qty: 180 RF: 3 Primary Care Provider: Jose Luis Leija Referrals: Jose Luis Leija MD [Primary Care Provider] - Disposition Disposition: Acute Care [facility]
--- NOTE | 2021-05-04 13:39 | EKG12_ITS ---
Test Reason : Blood Pressure : / mmHG Vent. Rate : 084 BPM Atrial Rate : 084 BPM P-R Int : 168 ms QRS Dur : 100 ms QT Int : 362 ms P-R-T Axes : 029 -09 097 degrees QTc Int : 427 ms Normal sinus rhythm Inferior-posterior infarct , age undetermined Abnormal ECG Confirmed by ROMULO AYALA, CHARLINE ([id number]), news videotape editor MARLEY YAN ([id number]) on 05/08/2021 1:10:59 PM Referred By: Raymundo Martell Confirmed By:CHARLINE SEBASTIAN MD
[2021-05-04 13:44] LABS: Bacteria 0 SEEN /hpf (None Seen); Color, Urine Yellow (Yellow); Glucose, Dipstick 1000 mg/dl (Normal); Ketone-Dipstick 15 mg/dl (Negative); Leukocyte Esterase-Dipstick Negative /ul (Negative); Mucous, Urine 0 SEEN /hpf (<or=2+); Nitrite-Dipstick Negative (Negative); Occult Blood-Urine Negative /ul (Negative); Protein-Dipstick Negative (Negative); Red Blood Cells-Urine 0 SEEN /hpf (0-5); Specific Gravity, Urine 1.015 (1.002-1.030); Squamous Epithelial Cells - UA 0 SEEN /hpf (0-5); Urine Bilirubin Dipstick Negative (Negative); Urine Clarity Clear (Clear); Urine Urobilinogen Normal (Normal); White Blood Cells 0 SEEN /hpf (0-5)
[2021-05-04 13:45] LABS: Absolute Lymphocyte Count 0.32 X10^3/uL (0.83-4.51); Absolute Neutrophil Count 0.4 X10^3/uL (2.0-7.7); Hematocrit 24.2 % (40-54); Hemoglobin 8.5 g/dL (13.0-16.5); Lymphocyte # 0.32 X10^3/ul (0.83-4.51); Mean Corp Hgb Conc 35.1 g/dL (32-36); Mean Corpuscular Volume 99.6 fL (80-94); Monocyte% 11.2 % (0-10); NRBC Flagged by Analyzer 0 % (0-5); Neutrophil # 0.42 X10^3/uL (2.7-7.7); Neutrophil % 47.2 % (47-70); POSITIVE COUNT YES; POSITIVE DIFFERENTIAL YES; POSITIVE MORPHOLOGY YES; Platelet Count 37 K/mm3 (150-450); RBC Distribution Width CV 18.9 % (11.6-14.6); RBC Distribution Width SD 65.2 fl (35.1-43.9); Red Blood Count 2.43 M/mm3 (4.6-6.2); White Blood Count 0.9 K/mm3 (4.4-11.0)
[2021-05-04 13:52] LABS: ALB/GLOB Ratio 0.9 RATIO (0.9-2.4); AST(SGOT) 9 U/L (15-37); Alanine Aminotransfer ALT/SGPT 25 U/L (16-61); Albumin, Serum 3.2 g/dL (3.2-5.0); Alkaline Phosphatase 134 U/L (45-117); Anion Gap 12 (5-15); BUN 19 mg/dL (7-18); BUN/Creat Ratio 22.9 RATIO (10-20); Calcium,Total 8.8 mg/dL (8.5-10.1); Chloride 99 mmol/L (98-107); Creatinine, Serum 0.83 mg/dL (0.70-1.30); Differential Indicated SCAN CRITERIA MET; EST Glomerular Filtration Rate 99 mL/min (>60); Est Glom Filt Rate - Afr Amer 120 mL/min (>60); Estimated Creatinine Clearance 88.13 ml/min; Globulin 3.6 g/dL (2.2-4.2); Glucose 470 mg/dL (74-106); Protein, Total 6.8 g/dL (6.4-8.2); Sodium Level 133 mmol/L (136-145)
[2021-05-04 14:07] LABS: Ovalocyte 1+; Platelet Estimate MKD DEC (ADEQ)
[2021-05-04 14:08] LABS: Anisocytosis 1+
[2021-05-04] MEDS: 0.9% Normal Saline 1,000 ML 999 ML IV (16:05)
[2021-05-04] MEDS: Insulin Lispro 100 UNIT/ML INSULN.PEN 10 UNIT SC (16:05)
--- NOTE | 2021-05-04 16:09 | HP.PCM.HOS_ITS ---
Documented by User: Lis Cabezas NP, WELFARE CENTRE MANAGER-C 05/04/21 16:32 HPI - General General Date of Admission: 05/04/21 HPI Narrative JOSE MUJICA, is a 65 M who presents to the emergency room due to weakness. Patient was recently diagnosed with AML with recent admission to [facility]. states patient received blood transfusion, platelets and magnesium. Patient has had increased weakness however today while showering he states he felt so weak that he needed to lower himself to the floor. He does report lightheadedness however denies syncope. Denies injury during this event. He denies fever, chills. Denies cough. Denies nausea, vomiting. He complains of dry mouth and states he feels like he cannot get enough to drink. He reports generalized pain which is chronic from arthritis. He denies other symptoms or complaints. His other past medical history includes CAD with history of stents, cardiomyopathy, type 2 diabetes mellitus, hypertension, hyperlipidemia, CVA, bilateral carotid stenosis, rheumatoid arthritis. [facility] Medical History (Updated 05/04/21 @ 15:[address] Ray Mullins MD) Atherosclerotic heart disease of [place] coronary artery without angina pectoris Bilateral carotid artery stenosis CVA (cerebral vascular accident) Essential (primary) hypertension Hyperlipidemia Ischemic cardiomyopathy Old inferior wall myocardial infarction Rheumatoid arthritis Septic arthritis of knee, left Home Medications nitroglycerin 0.4 mg sublingual tablet 0.4 mg SUBLINGUAL Q5M PRN 05/12/17 [History Last Taken Unknown] rosuvastatin 10 mg tablet 10 mg PO DAILY #90 tab 09/24/20 [Rx Last Taken Unknown] carvedilol 6.25 mg tablet 6.25 mg PO BID #180 tab 02/10/21 [Rx Last Taken Unknown] benzocaine-menthol [Cepacol Sore Throat (ebony-men)] 1 ceci MUCOUS MEMBRANE Q2H PRN PRN #0 ea 04/17/21 [Rx Last Taken Unknown] dexamethasone 4 mg tablet 4 mg PO DAILY 14 Days #14 tab 04/23/21 [Rx Last Taken Unknown] Docusate Plus 1,000 mg PO/SL BID 05/04/21 [History Last Taken Unknown] acyclovir 800 mg PO BID 05/04/21 [History Last Taken Unknown] allopurinol 300 mg PO DAILY 05/04/21 [History Last Taken Unknown] levofloxacin 500 mg PO DAILY 05/04/21 [History Last Taken Unknown] lisinopril 10 mg PO QHS 05/04/21 [History Last Taken Unknown] ranolazine 500 mg PO BID 05/04/21 [History Last Taken Unknown] sennosides 17.2 mg PO/SL BID 05/04/21 [History Last Taken Unknown] Allergy/AdvReac Type Severity Reaction Status Date / Time No Known Allergies Allergy Verified 05/04/21 12:30 Family History (Updated 05/04/21 @ 16:15 by Lis Cabezas NP, WELFARE CENTRE MANAGER-C) Father CAD (coronary artery disease) Diabetes Mother , related to sepsis from diverticulitis Arthritis Surgical History (Updated 05/04/21 @ 16:31 by Lis Cabezas NP, WELFARE CENTRE MANAGER-C) H/O cervical spine surgery (03/2019) H/O coronary artery bypass surgery (05/22/03) History of bone marrow biopsy History of coronary artery stent placement (04/14/16) History of left knee surgery (08/2018) History of shoulder surgery Social History Smoking Status: Former smoker alcohol intake: never substance use type: does not use caffeine: Yes Type: coffee Number of servings: 2 what type of physical activity do you participate in: walking and bicycling frequency: daily duration: 60-90 minutes/day seatbelt use: always do you feel safe at home: Yes ROS Constitutional Constitutional: Reports fatigue and weakness; Denies chills or fever(s) Cardiovascular Cardiovascular: Denies chest pain, edema, lightheadedness, palpitations or syncope Respiratory/Chest Respiratory/Chest: Denies cough, dyspnea, productive cough, shortness of breath at rest, shortness of breath with exertion or wheezing Gastrointestinal Gastrointestinal: Denies abdominal pain, constipation, diarrhea, nausea or vomiting Genitourinary Genitourinary: Denies burning urination, difficulty urinating, dysuria, hematuria, urinary frequency, urinary incontinence or urinary urgency Musculoskeletal Musculoskeletal: Reports back pain and joint pain; Denies muscle weakness Integumentary Integumentary: Denies erythema, lesions, rash or wounds Neurologic Neurologic: Denies abnormal speech, confusion, dizziness, focal weakness, numbness, paresthesias, seizure-like activity or syncope Psychiatric Psychiatric: Denies anxiety or depression Hematologic/Lymphatic Hematologic/Lymphatic: Denies anemia, easy bleeding or easy bruising Allergic/Immunologic Allergic/Immunologic: Denies hives or asthma Vital Signs Vital Signs Vital Signs: 05/04/21 12:30 05/04/21 12:33 05/04/21 12:34 Temperature 96.6 F L 96.6 F L Temperature Source Temporal Temporal Pulse Rate 85 90 Respiratory Rate 18 16 Respiratory Effort Normal Respiratory Pattern Normal Blood Pressure 140/89 H 140/89 H Blood Pressure Mean 106 106 Pulse Ox 98 99 Oxygen Delivery Method Room Air Room Air 05/04/21 13:33 05/04/21 14:00 05/04/21 15:00 Temperature 96.3 F L 96.3 F L 96.7 F L Temperature Source Temporal Temporal Temporal Pulse Rate 81 76 71 Respiratory Rate 10 L 20 H 19 H Respiratory Effort Respiratory Pattern Blood Pressure 126/92 H 126/92 H 127/81 H Blood Pressure Mean 103 103 96 Pulse Ox 100 100 98 Oxygen Delivery Method Room Air Room Air Room Air 05/04/21 16:08 Temperature 97.0 F L Temperature Source Temporal Pulse Rate 64 Respiratory Rate 11 L Respiratory Effort Respiratory Pattern Blood Pressure 116/91 H Blood Pressure Mean 99 Pulse Ox 99 Oxygen Delivery Method Room Air Weight Weight: 188 lb 14.978 oz Body Mass Index (BMI) 28.7 Physical Exam Const alert, oriented x3 and no apparent distress Constitutional Narrative: Fatigued appearing. Orientation / Consciousness: awake, oriented to person, oriented to place and oriented to time HEENT normocephalic Mouth: dry mucous membranes Eyes PERRL, EOMs intact bilaterally and conjunctivae normal Neck no lymphadenopathy Resp normal respiratory effort and clear to auscultation bilaterally Cardio regular rate, regular rhythm and no murmurs Peripheral Pulses: pulses 2+ throughout GI normal to inspection, nondistended, normoactive bowel sounds, non-tender and non-distended Extremity normal to inspection Skin no rashes or lesions noted Lesions: no lesions Rashes: no rashes Trauma: no lacerations or abrasions Neuro CN's II-XII intact bilaterally, no focal motor deficits, no sensory deficits noted and deep tendon reflexes 2+ bilaterally Psych mental status grossly normal and affect normal Results Lab / Micro Data Result Diagrams: 05/04/21 12:43 05/04/21 12:43 Labs: Laboratory Results - last 24 hr 05/04/21 12:43: WBC 0.9 L*, RBC 2.43 L, Hgb 8.5 L, Hct 24.2 L, MCV 99.6 H, MCH 35.0 H, MCHC 35.1, RDW Std Deviation 65.2 H, RDW Coeff of Jamie 18.9 H, Plt Count 37 L*, MPV 10.0, Immature Gran % (Auto) 5.600 H, Neut % (Auto) 47.2, Lymph % (Auto) 36.0, [place] % (Auto) 11.2 H, Eos % (Auto) 0.0, Baso % (Auto) 0.0, Absolute Neuts (auto) 0.4 L, Absolute Lymphs (auto) 0.32 L, Nucleated RBC % 0, Differential Comment , Diff Path Review July, Platelet Estimate MKD DEC, Anisocytosis 1+, Ovalocytes 1+ 05/04/21 12:43: Sodium 133 L, Potassium 4.0, Chloride 99, Carbon Dioxide 22.0, Anion Gap 12, BUN 19 H, Creatinine 0.83, Estim Creat Clear Calc 88.13, Est GFR (MDRD) Af Amer 120, Est GFR (MDRD) Non-Af 99, BUN/Creatinine Ratio 22.9 H, Glucose 470 H*, Calcium 8.8, Total Bilirubin 1.30 H, AST 9 L, ALT 25, Alkaline Phosphatase 134 H, Total Protein 6.8, Albumin 3.2, Globulin 3.6, Albumin/Globulin Ratio 0.9 05/04/21 13:40: Urine Color Yellow, Urine Clarity Clear, Urine pH 6.0, Ur Specific [place] 1.015, Urine Protein Negative, Urine Glucose (UA) 1000 H, Urine Ketones 15 H, Urine Occult Blood Negative, Urine Nitrite Negative, Urine Bilirubin Negative, Urine Urobilinogen Normal, Ur Leukocyte Esterase Negative, Urine RBC 0 SEEN, Urine WBC 0 SEEN, Ur Squamous Epith Cells 0 SEEN, Urine Bacteria 0 SEEN, Urine Mucus 0 SEEN Rhythm Strip Rhythm Strip: Sinus Rhythm Rate: 84 Ectopy: None Radiology Impression Chest X-Ray 05/04/21 13:19 IMPRESSION: No active disease. Electronically Signed: Eduard Davison MD at 14:57 EST , Assessment & Plan Assessment/Plan (1) Weakness: (2) Pancytopenia: PLAN: 1. Generalized weakness, debility-PT/OT. IV fluids. Dietitian consult for poor oral intake. Case management consult for discharge planning. UA and chest x-ray unremarkable. 2. Recent diagnosis AML with pancytopenia- following with [facility]/Dr. Martell. Trend CBC. On Decadron, valacyclovir, Levaquin. 3. CAD with history of stents/Cardiomyopathy-continue carvedilol, lisinopril, Ranexa, statin. Stress test 02/11/2021 with ejection fraction 46%. 4. Type 2 diabetes mellitus-with elevated glucose secondary to recent initiation of steroids. Accu-Cheks with sliding scale insulin. Add Lantus. 5. Hypertension-stable, continue home regimen including carvedilol, lisinopril, Ranexa. 6. Hyperlipidemia-continue statin. 7. History of CVA-continue statin, no longer on plavix. 8. Bilateral carotid stenosis-continue statin, no longer on plavix. 9. Rheumatoid arthritis-as needed pain regimen. 10. Moderate to severe protein calorie malnutrition-recent poor oral intake and weight loss. Dietitian consult. DVT prophylaxis- SCDs, pharmacologic prophylaxis contraindicated due to pancytopenia This patient was seen by Lis Cabezas NP-C under the supervision of Dr. Soria. Time spent examining patient, reviewing data and subsequent management of care: 15 Minutes Documented by User: Dr. Ashly Soria MD 05/04/21 17:35 HPI - General General Date of Admission: 05/04/21 [facility] Medical History (Updated 05/04/21 @ 15:[address] Ray Mullins MD) Atherosclerotic heart disease of [place] coronary artery without angina pectoris Bilateral carotid artery stenosis CVA (cerebral vascular accident) Essential (primary) hypertension Hyperlipidemia Ischemic cardiomyopathy Old inferior wall myocardial infarction Rheumatoid arthritis Septic arthritis of knee, left Home Medications nitroglycerin 0.4 mg sublingual tablet 0.4 mg SUBLINGUAL Q5M PRN 05/12/17 [History Last Taken Unknown] rosuvastatin 10 mg tablet 10 mg PO DAILY #90 tab 09/24/20 [Rx Last Taken Unknown] carvedilol 6.25 mg tablet 6.25 mg PO BID #180 tab 02/10/21 [Rx Last Taken Unknown] benzocaine-menthol [Cepacol Sore Throat (ebony-men)] 1 ceci MUCOUS MEMBRANE Q2H PRN PRN #0 ea 04/17/21 [Rx Last Taken Unknown] dexamethasone 4 mg tablet 4 mg PO DAILY 14 Days #14 tab 04/23/21 [Rx Last Taken Unknown] Docusate Plus 1,000 mg PO/SL BID 05/04/21 [History Last Taken Unknown] acyclovir 800 mg PO BID 05/04/21 [History Last Taken Unknown] allopurinol 300 mg PO DAILY 05/04/21 [History Last Taken Unknown] levofloxacin 500 mg PO DAILY 05/04/21 [History Last Taken Unknown] lisinopril 10 mg PO QHS 05/04/21 [History Last Taken Unknown] ranolazine 500 mg PO BID 05/04/21 [History Last Taken Unknown] sennosides 17.2 mg PO/SL BID 05/04/21 [History Last Taken Unknown] Allergy/AdvReac Type Severity Reaction Status Date / Time No Known Allergies Allergy Verified 05/04/21 12:30 Family History (Updated 05/04/21 @ 16:15 by Lis Cabezas NP, WELFARE CENTRE MANAGER-C) Father CAD (coronary artery disease) Diabetes Mother , related to sepsis from diverticulitis Arthritis Surgical History (Updated 05/04/21 @ 16:31 by Lis Cabezas NP, WELFARE CENTRE MANAGER-C) H/O cervical spine surgery (03/2019) H/O coronary artery bypass surgery (05/22/03) History of bone marrow biopsy History of coronary artery stent placement (04/14/16) History of left knee surgery (08/2018) History of shoulder surgery Social History Smoking Status: Former smoker alcohol intake: never substance use type: does not use caffeine: Yes Type: coffee Number of servings: 2 what type of physical activity do you participate in: walking and bicycling frequency: daily duration: 60-90 minutes/day seatbelt use: always do you feel safe at home: Yes Results Lab / Micro Data Result Diagrams: 05/04/21 12:43 05/04/21 12:43
[2021-05-04] MEDS: 0.9% Normal Saline 1,000 ML 100 ML IV (17:18)
[2021-05-04] MEDS: oxyCODONE 5 MG Tablet PO ×2 (17:18→21:48)
[2021-05-04] MEDS: 0.9% Saline Lock 10 ML Syringe IV (17:18)
[2021-05-04] MEDS: Insulin Lispro 100 UNIT/ML INSULN.PEN SC ×2 (17:27→21:49)
[2021-05-04 17:31] LABS: Phosphorus 3.8 mg/dL (2.5-4.9)
[2021-05-04 17:56] LABS: Bedside Glucose 280 mg/dL (70-110)
[2021-05-04] MEDS: Atorvastatin Calcium 20 MG Tablet PO (21:48)
[2021-05-04] MEDS: Carvedilol 6.25 MG Tablet PO (21:48)
[2021-05-04] MEDS: Lisinopril 10 MG Tablet PO (21:48)
[2021-05-04] MEDS: Acyclovir 800 MG Tablet PO (21:53)
[2021-05-04 22:01] LABS: Bedside Glucose 264 mg/dL (70-110)
[2021-05-05] VITALS (16 sets, daily range): BP systolic 95–135; BP diastolic 55–78; PULSE 52–67; RESP 16–18; TEMP 36.4–36.8; O2SAT 96–100
[2021-05-05] MEDS: 0.9% Normal Saline 1,000 ML 100 ML IV ×2 (03:12→13:00)
[2021-05-05] MEDS: oxyCODONE 5 MG Tablet PO ×4 (03:54→19:38)
[2021-05-05 05:58] LABS: Absolute Lymphocyte Count 0.61 X10^3/uL (0.83-4.51); Absolute Neutrophil Count 0.3 X10^3/uL (2.0-7.7); Hematocrit 20.3 % (40-54); Lymphocyte # 0.61 X10^3/ul (0.83-4.51); Mean Corp Hgb Conc 34.5 g/dL (32-36); Mean Corpuscular Volume 101.5 fL (80-94); Mean Platelet Vol. 10.4 fl (6.2-12.0); Monocyte# 0.16 X10^3/uL; Monocyte% 14.4 % (0-10); NRBC Flagged by Analyzer 0 % (0-5); Neutrophil # 0.32 X10^3/uL (2.7-7.7); Neutrophil % 28.8 % (47-70); POSITIVE COUNT YES; POSITIVE DIFFERENTIAL YES; POSITIVE MORPHOLOGY YES; Platelet Count 29 K/mm3 (150-450); RBC Distribution Width CV 19.3 % (11.6-14.6)
[2021-05-05 06:07] LABS: Differential Indicated SCAN CRITERIA MET; White Blood Count 1.1 K/mm3 (4.4-11.0)
[2021-05-05 06:21] LABS: Differential Comment SCANNED; Ovalocyte 2+
[2021-05-05 06:22] LABS: Anisocytosis 2+; Schistocytes 1+
[2021-05-05 06:24] LABS: Macrocytosis 1+; Microcytosis 1+
[2021-05-05] MEDS: Insulin Lispro 100 UNIT/ML INSULN.PEN SC ×4 (06:28→21:12)
[2021-05-05 06:34] LABS: ALB/GLOB Ratio 0.9 RATIO (0.9-2.4); AST(SGOT) 7 U/L (15-37); Alanine Aminotransfer ALT/SGPT 20 U/L (16-61); Albumin, Serum 2.6 g/dL (3.2-5.0); Alkaline Phosphatase 98 U/L (45-117); Anion Gap 7 (5-15); BUN 19 mg/dL (7-18); BUN/Creat Ratio 36.1 RATIO (10-20); Calcium,Total 8.1 mg/dL (8.5-10.1); Chloride 106 mmol/L (98-107); Creatinine, Serum 0.53 mg/dL (0.70-1.30); EST Glomerular Filtration Rate 168 mL/min (>60); Est Glom Filt Rate - Afr Amer 203 mL/min (>60); Estimated Creatinine Clearance 138.02 ml/min; Glucose 232 mg/dL (74-106); Potassium 3.5 mmol/L (3.5-5.1); Protein, Total 5.6 g/dL (6.4-8.2); Sodium Level 137 mmol/L (136-145)
[2021-05-05 06:46] LABS: Bedside Glucose 215 mg/dL (70-110)
[2021-05-05] MEDS: dexAMETHasone 4 MG Tablet PO (07:41)
[2021-05-05] MEDS: Glucerna Shake 120 ML LIQUID PO (07:41)
[2021-05-05] MEDS: Allopurinol 300 MG Tablet PO (10:04)
[2021-05-05] MEDS: Senna/Docusate Sodium 1 Tablet 2 TABLET PO (10:04)
[2021-05-05] MEDS: Acyclovir 800 MG Tablet PO ×2 (10:05→21:14)
[2021-05-05] MEDS: levoFLOXacin 500 MG Tablet PO (10:05)
[2021-05-05] MEDS: Carvedilol 6.25 MG Tablet PO (10:05)
[2021-05-05] MEDS: Ranolazine 500 MG Tablet PO (10:05)
[2021-05-05 11:11] LABS: Bedside Glucose 273 mg/dL (70-110)
--- NOTE | 2021-05-05 13:24 | PN.HOSP_ITS ---
Documented by User: Lis Cabezas DEBATE DIRECTOR, DEBATE DIRECTOR-C 05/05/21 13:30 Subjective Subjective Patient seen and examined. Reports ongoing weakness. Denies fever, chills. Denies nausea, vomiting. No other symptoms or complaints. Objective Data Objective Data Vital Signs: Vital Signs Temp Pulse Resp BP Pulse Ox 97.8 F 64 16 109/60 100 05/05/21 07:26 05/05/21 08:00 05/05/21 07:26 05/05/21 07:26 05/05/21 07:26 Oxygen Delivery Method Room Air Weight: 188 lb 14.978 oz Body Mass Index (BMI) 28.7 Intake & Output: Intake and Output for Last 24 Hours 05/03/21 05/04/21 05/05/21 23:59 23:59 23:59 Intake Total 1000 / 1000 2770 / 2770 Balance 1000 / 1000 2770 / 2770 Medical Nutrition Assessment Dietitian: Malnutrition Criteria Met Start: 05/05/21 12:37 Freq: Status: Active Protocol: Document 05/05/21 12:37 ROC (Rec: 05/05/21 12:37 ROC [id number]) Nutrition Malnutrition Evidence of Malnutrition Exists Yes Malnutrition (severe): Acute Illness/Injury Evidenced By Suboptimal Energy Intake ( Severe),Weight Loss (Severe), Physical Changes (Mild) Clinical Problem Acute Disease or Injury Related Malnutrition Etiology related to new dx of AML and not having appetite to meet est nutritional needs Signs/Symptoms as evidenced by 16.1% wt loss 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 Also noted to have muscle/fat loss in temporal/orbital regions, clavicle and acromion areas. Status Active Problem Recommendation Dietitian Recommendations/Changes Will continue liberal regular diet with oral nutrition supplement at meals d/t s/s of malnutrition Consider appetite stimulant if po intake worsens. Lab / Micro Data Result Diagrams: 05/05/21 04:24 05/05/21 04:24 Labs: Laboratory Results - last 24 hr 05/04/21 12:43: WBC 0.9 L*, RBC 2.43 L, Hgb 8.5 L, Hct 24.2 L, MCV 99.6 H, MCH 35.0 H, MCHC 35.1, RDW Std Deviation 65.2 H, RDW Coeff of Jamie 18.9 H, Plt Count 37 L*, MPV 10.0, Immature Gran % (Auto) 5.600 H, Neut % (Auto) 47.2, Lymph % (Auto) 36.0, [place] % (Auto) 11.2 H, Eos % (Auto) 0.0, Baso % (Auto) 0.0, Absolute Neuts (auto) 0.4 L, Absolute Lymphs (auto) 0.32 L, Nucleated RBC % 0, Differential Comment , Diff Path Review May , Platelet Estimate MKD DEC, Anisocytosis 1+, Ovalocytes 1+ 05/04/21 12:43: Sodium 133 L, Potassium 4.0, Chloride 99, Carbon Dioxide 22.0, Anion Gap 12, BUN 19 H, Creatinine 0.83, Estim Creat Clear Calc 88.13, Est GFR (MDRD) Af Amer 120, Est GFR (MDRD) Non-Af 99, BUN/Creatinine Ratio 22.9 H, Glucose 470 H*, Calcium 8.8, Total Bilirubin 1.30 H, AST 9 L, ALT 25, Alkaline Phosphatase 134 H, Total Protein 6.8, Albumin 3.2, Globulin 3.6, Albumin/Globulin Ratio 0.9 05/04/21 12:43: Magnesium 2.0 05/04/21 12:43: Phosphorus 3.8 05/04/21 13:40: Urine Color Yellow, Urine Clarity Clear, Urine pH 6.0, Ur Specific [place] 1.015, Urine Protein Negative, Urine Glucose (UA) 1000 H, Urine Ketones 15 H, Urine Occult Blood Negative, Urine Nitrite Negative, Urine Bilirubin Negative, Urine Urobilinogen Normal, Ur Leukocyte Esterase Negative, Urine RBC 0 SEEN, Urine WBC 0 SEEN, Ur Squamous Epith Cells 0 SEEN, Urine Bacteria 0 SEEN, Urine Mucus 0 SEEN 05/04/21 17:25: POC Glucose 280 H 05/04/21 21:40: POC Glucose 264 H 05/05/21 04:24: WBC 1.1 L*, RBC 2.00 L, Hgb 7.0 L, Hct 20.3 L, MCV 101.5 H, MCH 35.0 H, MCHC 34.5, RDW Std Deviation 66.0 H, RDW Coeff of Jamie 19.3 H, Plt Count 29 L*, MPV 10.4, Immature Gran % (Auto) 1.800 H, Neut % (Auto) 28.8 L, Lymph % (Auto) 55.0 H, [place] % (Auto) 14.4 H, Eos % (Auto) 0.0, Baso % (Auto) 0.0, Absolute Neuts (auto) 0.3 L, Absolute Lymphs (auto) 0.61 L, Nucleated RBC % 0, Differential Comment SCANNED, Diff Path Review May foll, Anisocytosis 2+, Mi crocytosis 1+, Macrocytosis 1+, Ovalocytes 2+, Schistocytes 1+ 05/05/21 04:24: Sodium 137, Potassium 3.5, Chloride 106, Carbon Dioxide 24.0, Anion Gap 7, BUN 19 H, Creatinine 0.53 L, Estim Creat Clear Calc 138.02, Est GFR (MDRD) Af Amer 203, Est GFR (MDRD) Non-Af 168, BUN/Creatinine Ratio 36.1 H, Glucose 232 H, Calcium 8.1 L, Total Bilirubin 0.90, AST 7 L, ALT 20, Alkaline Phosphatase 98, Total Protein 5.6 L, Albumin 2.6 L, Globulin 3.0, Albumin/Globulin Ratio 0.9 05/05/21 06:26: POC Glucose 215 H 05/05/21 10:59: POC Glucose 273 H Radiography Diagnostic Testing: Radiology Impression Chest X-Ray 05/04/21 13:19 IMPRESSION: No active disease. Electronically Signed: Eduard Davison MD at 14:57 EST Reading Location ID and State: [address] [place] [address] Tel , Service support , Rhythm Strip Rhythm Strip: Sinus Rhythm Rate: 84 Ectopy: None Physical Exam Const alert, oriented x3 and no apparent distress Constitutional Narrative: Pale appearing. Orientation / Consciousness: awake, oriented to person, oriented to place and oriented to time HEENT normocephalic and moist oral mucous membranes Eyes PERRL, EOMs intact bilaterally and conjunctivae normal Neck no lymphadenopathy Resp normal respiratory effort and clear to auscultation bilaterally Cardio regular rate, regular rhythm and no murmurs Peripheral Pulses: pulses 2+ throughout GI normal to inspection, nondistended, normoactive bowel sounds, non-tender and non-distended Extremity normal to inspection Skin no rashes or lesions noted Lesions: no lesions Rashes: no rashes Trauma: no lacerations or abrasions Neuro CN's II-XII intact bilaterally, no focal motor deficits, no sensory deficits noted and deep tendon reflexes 2+ bilaterally Psych mental status grossly normal and affect normal Assessment & Plan Assessment/Plan (1) Pancytopenia: (2) Acute myelogenous leukemia: (3) Weakness: PLAN: 1. Generalized weakness, debility-PT/OT. IV fluids. Dietitian consult for poor oral intake. Case management consult for discharge planning. UA and chest x-ray unremarkable. 2. Recent diagnosis AML with pancytopenia- following with [facility]/Dr. Martell. Trend CBC. On Decadron, valacyclovir, Levaquin. DC Decadron per oncology recommendations. 2 units PRBC ordered. Patient has follow-up with [facility] oncology 05/07/21. 3. CAD with history of stents/Cardiomyopathy-continue carvedilol, lisinopril, Ranexa, statin. Stress test 02/11/2021 with ejection fraction 46%. 4. Type 2 diabetes mellitus-with elevated glucose secondary to recent initiation of steroids. Accu-Cheks with sliding scale insulin. Add Lantus. 5. Hypertension-stable, continue home regimen including carvedilol, lisinopril, Ranexa. 6. Hyperlipidemia-continue statin. 7. History of CVA-continue statin, no longer on plavix. 8. Bilateral carotid stenosis-continue statin, no longer on plavix. 9. Rheumatoid arthritis-as needed pain regimen. 10. Severe protein calorie malnutrition-recent poor oral intake and weight loss. Continue dietary supplementation per dietitian recommendations. DVT prophylaxis- SCDs, pharmacologic prophylaxis contraindicated due to pancytopenia This patient was seen by Lis Cabezas NP-[facility] under the supervision of Dr. Hoang. Time spent examining patient, reviewing data and subsequent management of care: 12 Minutes Documented by User: Dr. Jose Luis Hoang DO 05/05/21 17:55 Objective Data Lab / Micro Data Result Diagrams: 05/05/21 04:24 05/05/21 04:24 Charges/Coding Addendum Addendum: Patient was seen and examined independently of Lis Cabezas today, I had an extensive conversation with the patient, patient's , and the patient's oncologist today in person. I went over the treatment plan with the patient's and the patient separately, his oncologist told me that the patient's prognosis is not good, he stated that the patient had what he calls a secondary acute leukemia meeting that it was because by an underlying condition which turned into acute leukemia as I understand it. He will need to follow-up with his appointment this week at [facility] for further treatment. understands this. On examination he appeared in good health and spirits. Vital signs as documented. Skin warm and dry and without overt rashes. Neck without JVD, neck was supple, trachea midline, thyroid was normal. Lungs clear bilaterally, normal air movement was noted. Heart exam notable for regular rhythm, normal sounds and absence of murmurs, rubs or gallops. Abdomen unremarkable and without evidence of organomegaly, masses, or abdominal aortic enlargement. Bowel sounds are present, abdomen is not distended. Extremities nonedematous, no cyanosis was noted, no clubbing was noted. Neuro: Cranial nerves II through XII are grossly intact, no focal motor deficits were noted, sensation to light touch and pinprick intact, motor exam 5/5 throughout. Psych: Patient is alert and oriented x3, he does not appear anxious or depressed, he does not appear agitated. Impression: #1 debility-secondary to acute leukemia with a backdrop of chronic anemia-I decided to transfuse the patient 2 units of packed red blood cells today to see if this helps, patient's Decadron was discontinued-I talked with his oncologist about the Decadron and it was added and then attempt to see if it made the patient feel any better, I believe it is only raising his blood sugars. #2 chronic anemia secondary to acute myelocytic leukemia-again patient will have 2 units of packed red blood cells transfused #3 pancytopenia-patient will not need a transfusion of platelets at this time, patient's white blood cell count today was 1100. #4 uncontrolled type 2 diabetes-exacerbated by Decadron usage, patient's blood sugars will be monitored, he may have to go home on basal insulin-his and the patient understand this. #5 coronary artery disease-stable at this time, no changes in medications are needed #6 hyperlipidemia-continue patient's statin #7 severe protein and caloric malnutrition-we will continue liberal regular diet with oral nutrition supplement at meals, appetite stimulant may be considered the patient's p.o. intake worsens. #8 essential hypertension-continue present medications-patient remains on some medications I have reviewed Lis Raulito's progress note including her medical assessment and plan of care and endorse it with the above additions, total clini ena time spent by myself addressing the patient's medical issues, reviewing all of the patient's medical data, collaboration with the patient's care team, and discussing patient care with the patient and his : 25 min Visit Charges Inpatient E&M: [id number] [facility] Hosp L3
--- NOTE | 2021-05-05 15:41 | CASEMGMT ---
Addendum entered by Mariela Luna 05/05/21 16:07: [facility] will see pt for SOC on 05/07/2021. Addendum entered by Mariela Luna 05/05/21 15:55: MARIELA MITTAL Readmission Note Previous Admission: 04/15/21-04/17/21 Diagnosis: pancytopenia DC Disposition: Home with outreach lab for lab draws Current Admission Current Diagnosis: weakness, hyperglycemia Pt presented to ER from home increased weakness. Pt recently dx with AML. Pt has had an admission to [facility] after his recent [facility] admission. Pt has an appt on May 08 to discuss treatment options per pt. Pt screened with [facility] Palliative Care Screening Tool due to readmit. No order received at this time. DC PLAN:Home with [facility]. Original Note: MARIELA MITTAL in to pt room. Pt present. Pt looking away from MARIELA MITTAL. Pt expresses concerns regarding pt care and states she spoke with [facility] who will review his chart. Pt states he does not know the plan. Listened to pt and . Discussed C with them. Pt/ agreeable. Patient/ was provided a list of [facility] providers including quality and resource use data and consistent with the patient?s preferred geographic region, medical needs, and insurance network. The patient?s preferred provider is [facility]. SHARON Interiano at [facility] intake, she will review referral and call this MARIELA MITTAL back with acceptance. TC to Patient Advocate. TC to Lia [employer] TR[employer] DRIVER, either she or hospitalist will come to see patient to answer any questions regarding plan.
[2021-05-05 16:51] LABS: Bedside Glucose 267 mg/dL (70-110)
--- NOTE | 2021-05-05 16:58 | CHAPLAIN ---
Type of Pastoral Visit _x__ Initial Visit ___ Follow-up Visit ___ On-call Visit ___ General Patient Visit ___ Spiritual Assessment ___ Family Conference ___ Bereavement ___ Rapid Response ___ Code Blue ___ Other (describe below) Pastoral Care Referral From _x__ Patient _x__ Family ___ Nurse ___ Physician ___ Cyber Engineer ___ Animal Pathology Teacher ___ Other (describe below) Sacrament/Intervention _x__ Active listening ___ Anointing ___ Methodist ___ Bereavement ___ Communion ___ Candi exploration ___ ___ Life review _x__ Prayer ___ Reconciliation ___ Sacrament of Sick _x__ Supportive presence ___ Wedding ___ Other (describe below) Pastoral Comments patient is alone in room; pt expresses clearly that he is frustrated and disappointed with his illness, weakness, uncertainty of what the plan of action is and the lack of coordinated communication; pt is pretty negative about his situation and about the plans or lack of plans; spouse walks in and she attempts to show him the positive things about today; pt is welcoming of a prayer;
[2021-05-05] MEDS: Atorvastatin Calcium 20 MG Tablet PO (21:14)
[2021-05-05] MEDS: Lisinopril 10 MG Tablet PO (21:14)
[2021-05-05 21:21] LABS: Bedside Glucose 288 mg/dL (70-110)
[2021-05-06 01:58] VITALS: PULSE 51
[2021-05-06 04:03] VITALS: BP 133/77; PULSE 54; RESP 18; TEMP 36.4; O2SAT 100
[2021-05-06] MEDS: oxyCODONE 5 MG Tablet PO ×2 (04:04→08:39)
[2021-05-06] MEDS: 0.9% Normal Saline 1,000 ML 100 ML IV (05:16)
[2021-05-06 05:29] VITALS: PULSE 64
[2021-05-06 05:52] LABS: Absolute Neutrophil Count 0.4 X10^3/uL (2.0-7.7); Hemoglobin 9.3 g/dL (13.0-16.5); Lymphocyte % 49.2 % (19-41); Mean Corp Hgb Conc 35.8 g/dL (32-36); Mean Corpuscular Hgb 34.2 pg (27.0-32.0); Mean Corpuscular Volume 95.6 fL (80-94); Monocyte# 0.22 X10^3/uL; NRBC Flagged by Analyzer 0 % (0-5); Neutrophil # 0.38 X10^3/uL (2.7-7.7); Neutrophil % 31.2 % (47-70); POSITIVE COUNT YES; POSITIVE DIFFERENTIAL YES; RBC Distribution Width CV 19.1 % (11.6-14.6); RBC Distribution Width SD 59.8 fl (35.1-43.9); Red Blood Count 2.72 M/mm3 (4.6-6.2)
[2021-05-06 06:08] LABS: Differential Indicated SCAN CRITERIA MET; Platelet Count 24 K/mm3 (150-450); White Blood Count 1.2 K/mm3 (4.4-11.0)
[2021-05-06 06:23] LABS: Differential Comment SCANNED; Ovalocyte 1+
[2021-05-06 06:24] LABS: Anisocytosis 2+; Macrocytosis 1+
[2021-05-06 06:25] LABS: Microcytosis 1+
[2021-05-06 06:26] LABS: Spherocyte RARE
[2021-05-06 06:27] LABS: Schistocytes RARE
[2021-05-06] MEDS: Insulin Lispro 100 UNIT/ML INSULN.PEN SC ×2 (06:46→10:56)
[2021-05-06 07:00] LABS: Bedside Glucose 201 mg/dL (70-110)
[2021-05-06 08:00] VITALS: PULSE 52
[2021-05-06 08:24] VITALS: BP 124/71; PULSE 55; RESP 16; TEMP 36.9; O2SAT 100
[2021-05-06] MEDS: Carvedilol 6.25 MG Tablet PO (10:47)
[2021-05-06] MEDS: Allopurinol 300 MG Tablet PO (10:48)
[2021-05-06] MEDS: Acyclovir 800 MG Tablet PO (10:48)
[2021-05-06] MEDS: Ranolazine 500 MG Tablet PO (10:48)
[2021-05-06] MEDS: levoFLOXacin 500 MG Tablet PO (10:48)
--- NOTE | 2021-05-06 10:48 | CASEMGMT ---
RN CM in to pt room, pt present. Pt and aware that [facility] will start tomorrow for SN. Discussed that PT recommended further therapy, pt agreeable to this at home. OT did not recommend additional therapy. Also provided pt with a Palliative Care pamphlet per request of hospitalist. Pt/ deny any further questions at this time. TC junior Interiano at [facility] to make aware that PT will be added to the order.
[2021-05-06 11:29] LABS: Anion Gap 5 (5-15); BUN 17 mg/dL (7-18); BUN/Creat Ratio 30.2 RATIO (10-20); Calcium,Total 8.2 mg/dL (8.5-10.1); Chloride 108 mmol/L (98-107); Creatinine, Serum 0.56 mg/dL (0.70-1.30); EST Glomerular Filtration Rate 155 mL/min (>60); Est Glom Filt Rate - Afr Amer 188 mL/min (>60); Estimated Creatinine Clearance 130.63 ml/min; Glucose 212 mg/dL (74-106); Magnesium 1.8 mg/dL (1.6-2.6); Potassium 3.5 mmol/L (3.5-5.1); Sodium Level 137 mmol/L (136-145)
--- NOTE | 2021-05-06 11:30 | CASEMGMT ---
Social Work Note SW attempted to meet with pt in regards to recent diagnosis AML. Pt currently in bathroom. SW will attempt to meet with pt again as time allows. Krista Saldaña CELL ROOM SUPERVISOR, BILLIARD TABLE REPAIRER
--- NOTE | 2021-05-06 11:34 | PCM.DC ---
Discharge Instructions Diet Discharge Diet: No restrictions Activity Discharge Activity: Return to Normal Activity Dressing / Incision Call your doctor if you observe: Fever of 101 or Higher, Shortness of breath, Dizziness and Chest pain Follow Up Care Test Results: Test results from this visit will be discussed in further detail at your follow-up appointment, if applicable. Discharge Plan Admission Admit Date/Time: 05/04/21 16:26 Primary Reason for Your Visit: AML, weakness Attending Provider: Jose Luis Hoang Primary Care Provider: Jose Luis Leija Consulting Providers: Raymundo Martell ; Discharge Orders/Prescriptions Prescriptions: New oxycodone 5 mg Tablet 5 mg PO Q4H PRN PRN (Reason: Pain Score 4-10) 7 Days Qty: 15 RF: 0 metformin 500 mg tablet 500 mg PO BID Qty: 60 RF: 0 Continued nitroglycerin [Nitrostat] 0.4 mg tablet, sublingual 0.4 mg SUBLINGUAL Q5M PRN (Reason: Angina) RF: 0 Cepacol Sore Throat (ebony-men) 15-3.6 mg Lozenge 1 ceci mucous membrane Q2H PRN PRN (Reason: SORE THROAT) Qty: 0 RF: 0 acyclovir 800 mg tablet 800 mg PO BID RF: 0 allopurinol 300 mg tablet 300 mg PO DAILY RF: 0 levofloxacin 500 mg tablet 500 mg PO DAILY RF: 0 lisinopril 5 mg tablet 10 mg PO QHS RF: 0 Docusate Plus 100 mg PO/SL BID RF: 0 sennosides 17.2 mg PO/SL BID RF: 0 rosuvastatin [Crestor] 10 mg tablet 10 mg PO DAILY Qty: 90 RF: 3 carvedilol 6.25 mg tablet 6.25 mg PO BID Qty: 180 RF: 3 ranolazine 500 mg tablet extended release 12 hr 500 mg PO DAILY Qty: 90 RF: 3 Discontinued dexamethasone [Decadron] 4 mg tablet 4 mg PO DAILY 14 Days Qty: 14 RF: 0 Referrals / Follow Up: Raymundo Martell MD [NON-STAFF] - See Referral Note ([facility]- as scheduled) Jose Luis Leija MD [Primary Care Provider] - In 1 Week Disposition Disposition (needs filled in before D/C Order can be placed): Home Health Service
[2021-05-06 11:41] LABS: Bedside Glucose 335 mg/dL (70-110)
--- NOTE | 2021-05-06 11:42 | DS.PCM_ITS ---
Documented by User: Lis Cabezas NP, ARTS EDUCATION TEACHER-C 05/06/21 11:55 Providers Date of Admission: 05/04/21 Date of Discharge: 05/06/21 Primary Care Physician: Dr. Jose Luis Leija MD Reason For Visit: WEAKNESS, HYPERGLYCEMIA Diagnosis Discharge Diagnosis (1) Pancytopenia: Status: Acute Code(s): D61.818 - Other pancytopenia (2) Acute myelogenous leukemia: Status: Acute Code(s): C92.00 - Acute myeloblastic leukemia, not having achieved remission (3) Weakness: Status: Acute Code(s): R53.1 - Weakness Medications at Discharge Home Medications nitroglycerin 0.4 mg sublingual tablet 0.4 mg SUBLINGUAL Q5M PRN 05/12/17 rosuvastatin 10 mg tablet 10 mg PO DAILY #90 tab 09/24/20 carvedilol 6.25 mg tablet 6.25 mg PO BID #180 tab 02/10/21 Cepacol Sore Throat (ebony-men) 1 ceci MUCOUS MEMBRANE Q2H PRN PRN #0 ea 04/17/21 Docusate Plus 100 mg PO/SL BID 05/04/21 acyclovir 800 mg PO BID 05/04/21 allopurinol 300 mg PO DAILY 05/04/21 levofloxacin 500 mg PO DAILY 05/04/21 lisinopril 10 mg PO QHS 05/04/21 sennosides 17.2 mg PO/SL BID 05/04/21 ranolazine 500 mg tablet,extended release,12 hr 500 mg PO DAILY #90 tab 05/05/21 magnesium 200 mg PO DAILY #30 tab 05/06/21 metformin 500 mg PO BID #60 tab 05/06/21 oxycodone 5 mg PO Q4H PRN PRN 7 Days #15 tab 05/06/21 Hospital Course Operations None Summary of Care Provided Hospital Course: Patient is a 65 year old male admitted 05/04/21 due to weakness. 1. Generalized weakness, debility-PT/OT. IV fluids during admission. UA and c hest x-ray unremarkable. Home health care/therapies at discharge. 2. Recent diagnosis AML with pancytopenia- following with [facility]/Dr. Martell. On valacyclovir, Levaquin. DC Decadron per oncology recommendations. S/P 2 units PRBC. Hemoglobin improved to 9.3. Discussed with oncology, no indication for platelets at this time. Patient has follow-up with [facility] oncology 05/08/21. 3. CAD with history of stents/Cardiomyopathy-continue carvedilol, lisinopril, Ranexa, statin. Stress test 02/11/2021 with ejection fraction 46%, previous infarct with mild alicai-infarct ischemia. Continue cardiology follow-up/medical management. 4. Type 2 diabetes mellitus-with elevated glucose secondary to recent initiation of steroids. Glucose improved following discontinuation of Decadron. Metformin 500 mg twice daily at discharge. Discussed with patient if he develops GI symptoms, reduce to once daily. Patient has glucometer at home for continued glucose monitoring. 5. Hypertension-stable, continue home regimen including carvedilol, lisinopril, Ranexa. 6. Hyperlipidemia-continue statin. 7. History of CVA-continue statin, no longer on plavix. 8. Bilateral carotid stenosis-continue statin, no longer on plavix. 9. Rheumatoid arthritis-as needed pain regimen. 10. Severe protein calorie malnutrition-recent poor oral intake and weight loss. Continue dietary supplementation per dietitian recommendations. Physical Exam Const alert, oriented x3 and no apparent distress Constitutional Narrative: Pale appearing. Orientation / Consciousness: awake, oriented to person, oriented to place and oriented to time HEENT normocephalic and moist oral mucous membranes Eyes PERRL, EOMs intact bilaterally and conjunctivae normal Neck no lymphadenopathy Resp normal respiratory effort and clear to auscultation bilaterally Cardio regular rate, regular rhythm and no murmurs Peripheral Pulses: pulses 2+ throughout GI normal to inspection, nondistended, normoactive bowel sounds, non-tender and non-distended Extremity normal to inspection Skin no rashes or lesions noted Lesions: no lesions Rashes: no rashes Trauma: no lacerations or abrasions Neuro CN's II-XII intact bilaterally, no focal motor deficits, no sensory deficits noted and deep tendon reflexes 2+ bilaterally Psych mental status grossly normal and affect normal Patient seen and examined prior to discharge. Physical assessment as noted above. Patient is stable for discharge with follow up recommendations as noted above. This patient was seen by MAGED Valladares under the supervision of Dr. Hoang. Time spent examining patient, reviewing data and subsequent management of care: 16 Minutes Medical Records Data Medical Nutrition Assessment Dietitian: Malnutrition Criteria Met Start: 05/05/21 12:37 Freq: Status: Active Protocol: Document 05/05/21 12:37 ROC (Rec: 05/05/21 12:37 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 Also noted to have muscle/fat loss in temporal/orbital regions, clavicle and acromion areas. Status Active Problem Recommendation Dietitian Recommendations/Changes Will continue liberal regular diet with oral nutrition supplement at meals d/t s/s of malnutrition Consider appetite stimulant if po intake worsens. Weight / BMI Weight Weight: 188 lb 14.978 oz Body Mass Index (BMI) 28.7 ABG / Lab / Microbiology Data Result Diagrams: 05/06/21 04:49 05/06/21 04:49 Laboratory: Laboratory Results - last 24 hr 05/05/21 13:30: Blood Type O POSITIVE, Antibody Screen NEGATIVE, Crossmatch See Detail 05/05/21 16:38: POC Glucose 267 H 05/05/21 21:10: POC Glucose 288 H 05/06/21 04:49: WBC 1.2 L*, RBC 2.72 L, Hgb 9.3 L, Hct 26.0 L, MCV 95.6 H D, MCH 34.2 H, MCHC 35.8, RDW Std Deviation 59.8 H, RDW Coeff of Jamie 19.1 H, Plt Count 24 L*, Immature Gran % (Auto) 1.600 H, Neut % (Auto) 31.2 L, Lymph % (Auto) 49.2 H, [place] % (Auto) 18.0 H, Eos % (Auto) 0.0, Baso % (Auto) 0.0, Absolute Neuts (auto) 0.4 L, Absolute Lymphs (auto) 0.60 L, Nucleated RBC % 0, Differential Comment SCANNED, Diff Path Review May foll, Anisocytosis 2+, Microcytosis 1+, Macrocytosis 1+, Spherocytes RARE H, Ovalocytes 1+, Schistocytes RARE 05/06/21 04:49: Sodium 137, Potassium 3.5, Chloride 108 H, Carbon Dioxide 24.0, Anion Gap 5, BUN 17, Creatinine 0.56 L, Estim Creat Clear Calc 130.63, Est GFR (MDRD) Af Amer 188, Est GFR (MDRD) Non-Af 155, BUN/Creatinine Ratio 30.2 H, Glucose 212 H, Calcium 8.2 L, Magnesium 1.8 05/06/21 06:45: POC Glucose 201 H 05/06/21 10:50: POC Glucose 335 H D/C Instructions Discharge Diet: No restrictions Call your doctor if you observe: Fever of 101 or Higher, Shortness of breath, Dizziness and Chest pain Meaningful Use Info Meaningful Use Diagnoses (Choose all that apply): None applicable Discharge Plan Admission Admit Date/Time: 05/04/21 16:26 Primary Reason for Your Visit: AML, weakness Attending Provider: Jose Luis Hoang Primary Care Provider: Jose Luis Leija Consulting Providers: Raymundo Martell ; Discharge Orders/Prescriptions Prescriptions: New oxycodone 5 mg Tablet 5 mg PO Q4H PRN PRN (Reason: Pain Score 4-10) 7 Days Qty: 15 RF: 0 metformin 500 mg tablet 500 mg PO BID Qty: 60 RF: 0 magnesium 200 mg tablet 200 mg PO DAILY Qty: 30 RF: 0 Continued nitroglycerin [Nitrostat] 0.4 mg tablet, sublingual 0.4 mg SUBLINGUAL Q5M PRN (Reason: Angina) RF: 0 Cepacol Sore Throat (ebony-men) 15-3.6 mg Lozenge 1 ceci mucous membrane Q2H PRN PRN (Reason: SORE THROAT) Qty: 0 RF: 0 acyclovir 800 mg tablet 800 mg PO BID RF: 0 allopurinol 300 mg tablet 300 mg PO DAILY RF: 0 levofloxacin 500 mg tablet 500 mg PO DAILY RF: 0 lisinopril 5 mg tablet 10 mg PO QHS RF: 0 Docusate Plus 100 mg PO/SL BID RF: 0 sennosides 17.2 mg PO/SL BID RF: 0 rosuvastatin [Crestor] 10 mg tablet 10 mg PO DAILY Qty: 90 RF: 3 carvedilol 6.25 mg tablet 6.25 mg PO BID Qty: 180 RF: 3 ranolazine 500 mg tablet extended release 12 hr 500 mg PO DAILY Qty: 90 RF: 3 Discontinued dexamethasone [Decadron] 4 mg tablet 4 mg PO DAILY 14 Days Qty: 14 RF: 0 Referrals / Follow Up: Raymundo Martell MD [NON-STAFF] - See Referral Note ([facility]- as scheduled) Jose Luis Leija MD [Primary Care Provider] - In 1 Week Disposition Disposition (needs filled in before D/C Order can be placed): Home Health Se rvice Documented by User: Dr. Jose Luis Hoang, 05/09/21 18:47 Providers Date of Admission: 05/04/21 Reason For Visit: WEAKNESS, HYPERGLYCEMIA Medications at Discharge Home Medications nitroglycerin 0.4 mg sublingual tablet 0.4 mg SUBLINGUAL Q5M PRN 05/12/17 rosuvastatin 10 mg tablet 10 mg PO DAILY #90 tab 09/24/20 carvedilol 6.25 mg tablet 6.25 mg PO BID #180 tab 02/10/21 Cepacol Sore Throat (ebony-men) 1 ceci MUCOUS MEMBRANE Q2H PRN PRN #0 ea 04/17/21 Docusate Plus 100 mg PO/SL BID 05/04/21 acyclovir 800 mg PO BID 05/04/21 allopurinol 300 mg PO DAILY 05/04/21 levofloxacin 500 mg PO DAILY 05/04/21 lisinopril 10 mg PO QHS 05/04/21 sennosides 17.2 mg PO/SL BID 05/04/21 ranolazine 500 mg tablet,extended release,12 hr 500 mg PO DAILY #90 tab 05/05/21 magnesium 200 mg PO DAILY #30 tab 05/06/21 metformin 500 mg PO BID #60 tab 05/06/21 oxycodone 5 mg PO Q4H PRN PRN 7 Days #15 tab 05/06/21 ABG / Lab / Microbiology Data Result Diagrams: 05/06/21 04:49 05/06/21 04:49 Discharge Plan Admission Admit Date/Time: 05/04/21 16:26 Primary Reason for Your Visit: AML, weakness Attending Provider: Jose Luis Hoang Primary Care Provider: Jose Luis Leija Consulting Providers: Raymundo Martell ; Discharge Orders/Prescriptions Prescriptions: New oxycodone 5 mg Tablet 5 mg PO Q4H PRN PRN (Reason: Pain Score 4-10) 7 Days Qty: 15 RF: 0 metformin 500 mg tablet 500 mg PO BID Qty: 60 RF: 0 magnesium 200 mg tablet 200 mg PO DAILY Qty: 30 RF: 0 Continued nitroglycerin [Nitrostat] 0.4 mg tablet, sublingual 0.4 mg SUBLINGUAL Q5M PRN (Reason: Angina) RF: 0 Cepacol Sore Throat (ebony-men) 15-3.6 mg Lozenge 1 ceci mucous membrane Q2H PRN PRN (Reason: SORE THROAT) Qty: 0 RF: 0 acyclovir 800 mg tablet 800 mg PO BID RF: 0 allopurinol 300 mg tablet 300 mg PO DAILY RF: 0 levofloxacin 500 mg tablet 500 mg PO DAILY RF: 0 lisinopril 5 mg tablet 10 mg PO QHS RF: 0 Docusate Plus 100 mg PO/SL BID RF: 0 sennosides 17.2 mg PO/SL BID RF: 0 rosuvastatin [Crestor] 10 mg tablet 10 mg PO DAILY Qty: 90 RF: 3 carvedilol 6.25 mg tablet 6.25 mg PO BID Qty: 180 RF: 3 ranolazine 500 mg tablet extended release 12 hr 500 mg PO DAILY Qty: 90 RF: 3 Discontinued dexamethasone [Decadron] 4 mg tablet 4 mg PO DAILY 14 Days Qty: 14 RF: 0 Referrals / Follow Up: Raymundo Martell MD [NON-STAFF] - See Referral Note ([facility]- as scheduled) Jose Luis Leija MD [Primary Care Provider] - In 1 Week Disposition Disposition (needs filled in before D/C Order can be placed): Home Health Service Charges/Coding Addendum Addendum: Patient was seen and examined today independently of Lis Cabezas, he was given 2 units of packed red blood cells yesterday, his hemoglobin appears stable at this time and he appears stable for discharge home. On examination he appeared in good health and spirits. Vital signs as documented. Skin warm and dry and without overt rashes. Neck without JVD, neck was supple, trachea midline, thyroid was normal. Lungs clear bilaterally, normal air movement was noted. Heart exam notable for regular rhythm, normal sounds and absence of murmurs, rubs or gallops. Abdomen unremarkable and without evidence of organomegaly, masses, or abdominal aortic enlargement. Bowel sounds are present, abdomen is not distended. Extremities nonedematous, no cyanosis was noted, no clubbing was noted. Neuro: Cranial nerves II through XII are grossly intact, no focal motor deficits were noted, sensation to light touch and pinprick intact, motor exam 5/5 throughout. Psych: Patient is alert and oriented x3, he does not appear anxious or depressed, he does not appear agitated. #1 debility-secondary to acute leukemia with a backdrop of chronic anemia #2 chronic anemia secondary to acute myelocytic leukemia-requiring transfusion of packed red blood cells #3 pancytopenia due to acute myelocytic leukemia #4 uncontrolled type 2 diabetes #5 coronary artery disease #6 hyperlipidemia #7 severe protein and caloric malnutrition #8 essential hypertension I have reviewed Lis Cabezas's discharge summary including her medical assessment and plan of care and endorse it. Total clinical time spent by myself addressing the patient's medical issues, reviewing all of his data, and collaborating with the patient's care team: 21 minutes Visit Charges Inpatient E&M: 31535 Disch Hosp
--- NOTE | 2021-05-06 11:45 | CASEMGMT ---
Social Work Note SW reviewed chart. Pt with recent AML diagnosis. SW in to speak with pt and pt's Cristina. SW introduced self and role at [facility] [place]. Pt is alert and orientated and engages in conversation appropriately. Pt states that he is doing better today as communication is better. SW spoke with pt about how frustrating it can be when different doctors shanika stating different things. Pt states that he is aware of the next step, which is to go to [facility] for his next appointment. Pt states that he is doing ok and pt's Cristina states she is also doing ok. SW offered support to pt. Pt and Cristina denied additional needs or concerns at this time. Krista Saldaña RADIO DIVISION LIEUTENANT, BAR SUPERVISOR
[2021-05-06] MEDS: Potassium Chloride Oral Tablet 20 MEQ PO (12:15)
[2021-05-06] MEDS: Magnesium Chloride 64 MG Delay Rel.Tablet 128 MG PO (12:59)
[2021-05-07 14:07] LABS: Pathologist Review Reviewed
[2021-05-07 14:07] LABS: Pathologist Review Reviewed
[2021-05-07 14:07] LABS: Pathologist Review Reviewed
== END 2021-05-06 13:14 | disposition home health service (06) | DRG 640 ==
LOC: ED 15:51 → MS3 16:25
PROVIDERS: Nurse Practitioner Family; Admitting Provider Family Medicine; Emergency Provider Emergency Medicine; PCP Family Medicine; Visit Provider Internal Medicine
DX: R62.7 Adult failure to thrive (principal); E43 Unspecified severe protein-calorie malnutrition; C92.00 Acute myeloblastic leukemia, not having achieved remission; D61.818 Other pancytopenia; E11.65 Type 2 diabetes mellitus with hyperglycemia; M06.9 Rheumatoid arthritis, unspecified; E78.5 Hyperlipidemia, unspecified; I10 Essential (primary) hypertension; I25.10 Atherosclerotic heart disease of native coronary artery without angina pectoris; I25.5 Ischemic cardiomyopathy; I65.23 Occlusion and stenosis of bilateral carotid arteries; I25.2 Old myocardial infarction; Z87.891 Personal history of nicotine dependence; Z86.73 Personal history of transient ischemic attack (TIA), and cerebral infarction without residual deficits; R53.1 Weakness; R53.81 Other malaise; R55 Syncope and collapse; Z95.5 Presence of coronary angioplasty implant and graft; Z68.28 Body mass index [BMI] 28.0-28.9, adult
CPT/HCPCS: 36415; 71045; 80048; 80053; 81001; 82962; 83735; 84100; 85025; 86850; 86900; 86901; 86920; 86922; 93005; 97162; 97166; 97802; 99285; J7030; J7040; P9016; A4216

== ENCOUNTER 2021-05-10 09:26 | Emergency (ER) | payer OTHER, MEDICARE, SELFPAY ==
[2021-05-10 09:28] VITALS: BP 122/76; PULSE 88; RESP 18; TEMP 36.6; O2SAT 98; BMI 28.5
--- NOTE | 2021-05-10 10:00 | EDS_ITS ---
HPI History of Present Illness Chief Complaint: Abn Labs Informant: patient Onset/Context/Timing Onset: Yesterday Context: Gradual Onset Timing: Continuous Worsened by: Nothing Relieved by: Nothing Narrative Narrative: Patient presents with low platelet count. Patient had outpatient labs drawn yesterday which showed thrombocytopenia and neutropenia. Platelet count was 14. White blood cell count was 1.0. Patient was told to come to the emergency department to make sure he was not having any bleeding prior to getting a platelet transfusion. Patient denies any nosebleeds, melena, hematochezia, hematuria, or hemoptysis. Patient denies any weakness. Patient does have a history of AML. [facility] Medical History Atherosclerotic heart disease of [place] coronary artery without angina pectoris Bilateral carotid artery stenosis CVA (cerebral vascular accident) Essential (primary) hypertension Hyperlipidemia Ischemic cardiomyopathy Old inferior wall myocardial infarction Rheumatoid arthritis Septic arthritis of knee, left Home Medications nitroglycerin 0.4 mg sublingual tablet 0.4 mg SUBLINGUAL Q5M PRN 05/12/17 [History Last Taken Unknown] rosuvastatin 10 mg tablet 10 mg PO DAILY #90 tab 09/24/20 [Rx Last Taken Unknown] carvedilol 6.25 mg tablet 6.25 mg PO BID #180 tab 02/10/21 [Rx Last Taken Unknown] Cepacol Sore Throat (ebony-men) 1 ceci MUCOUS MEMBRANE Q2H PRN PRN #0 ea 04/17/21 [Rx Last Taken Unknown] Docusate Plus 100 mg PO/SL BID 05/04/21 [History Last Taken Unknown] acyclovir 800 mg PO BID 05/04/21 [History Last Taken Unknown] allopurinol 300 mg PO DAILY 05/04/21 [History Last Taken Unknown] levofloxacin 500 mg PO DAILY 05/04/21 [History Last Taken Unknown] lisinopril 10 mg PO QHS 05/04/21 [History Last Taken Unknown] sennosides 17.2 mg PO/SL BID 05/04/21 [History Last Taken Unknown] ranolazine 500 mg tablet,extended release,12 hr 500 mg PO DAILY #90 tab 05/05/21 [Rx Last Taken Unknown] magnesium 200 mg PO DAILY #30 tab 05/06/21 [Rx Last Taken Unknown] metformin 500 mg PO BID #60 tab 05/06/21 [Rx Last Taken Unknown] oxycodone 5 mg PO Q4H PRN PRN 7 Days #15 tab 05/06/21 [Rx Last Taken Unknown] Allergy/AdvReac Type Severity Reaction Status Date / Time No Known Allergies Allergy Verified 05/04/21 12:30 Family History (Updated 05/04/21 @ 16:15 by Lis Cabezas MOTORCYCLE TECHNICIAN, MOTORCYCLE TECHNICIAN-C) Father CAD (coronary artery disease) Diabetes Mother , related to sepsis from diverticulitis Arthritis Surgical History H/O cervical spine surgery (03/2019) H/O coronary artery bypass surgery (05/22/03) History of bone marrow biopsy History of coronary artery stent placement (04/14/16) History of left knee surgery (08/2018) History of shoulder surgery Social History Smoking Status: Former smoker alcohol intake: never substance use type: does not use caffeine: Yes Type: coffee Number of servings: 2 what type of physical activity do you participate in: walking and bicycling frequency: daily duration: 60-90 minutes/day seatbelt use: always do you feel safe at home: Yes ROS ROS ED Constitutional Constitutional ED: Denies chills or fever(s) Eyes Eyes: Denies blurry vision or change in vision ENT ENT ED: Denies rhinorrhea or sore throat Cardiovascular Cardiovascular: Denies chest pain or palpitations Respiratory/Chest Respiratory/Chest: Denies cough or dyspnea Gastrointestinal Gastrointestinal: Denies melena, nausea or vomiting Genitourinary Genitourinary ED: Denies dysuria or hematuria Musculoskeletal Musculoskeletal: Reports back pain and neck pain Integumentary Denies abscess or rash Neurologic Neurologic: Denies headache(s) or weakness Allergic/Immunologic Allergic/Immunologic ED: Denies mouth swelling or urticaria EXAM Physical Exam Const Vital Signs: 05/10/21 09:28 05/10/21 13:17 05/10/21 14:13 Temperature 97.8 F 97.9 F 98.2 F Temperature Source Temporal Temporal Temporal Pulse Rate 88 85 80 Respiratory Rate 18 16 16 Blood Pressure 122/76 H 125/77 H 121/88 H Blood Pressure Mean 91 93 99 Blood Pressure Source Monitor Blood Pressure Position Semi-Fowlers Blood Pressure Location Right Arm Pulse Ox 98 99 100 Oxygen Delivery Method Room Air Room Air Room Air 05/10/21 14:28 Temperature 97.8 F Temperature Source Temporal Pulse Rate 79 Respiratory Rate 18 Blood Pressure 104/62 Blood Pressure Mean 76 Blood Pressure Source Monitor Blood Pressure Position Semi-Fowlers Blood Pressure Location Left Arm Pulse Ox 98 Oxygen Delivery Method Room Air Positive well nourished and well developed General Appearance ED: well developed HEENT Reports moist mucous membranes Neck supple and no JVD Resp normal respiratory effort and clear to auscultation bilaterally Cardio regular rate and regular rhythm GI normal to inspection, nondistended, normoactive bowel sounds and non-tender Palpation: soft Neuro oriented x3, CN's II-XII intact bilaterally and no sensory deficits noted Sensorium / Orientation: alert Motor Exam: strength 5/5 throughout Psych mental status grossly normal Skin no rashes or lesions noted General Skin Exam: Negative for petechiae MDM MDM MDM Narrative Medical decision making narrative: Patient is afebrile here. Patient has no symptoms or signs of bleeding. Patient was given a transfusion of platelets. Patient feels better after this. Patient wants to go home. Patient was instructed to follow-up with his primary care physician in 5 to 7 days. Patient states he is scheduled to have outpatient lab work drawn on Wednesday. Patient was instructed return if worse in any way. Patient understood and was agreeable with the plan. All questions were answered. Lab Data Labs: Laboratory Results - last 24 hr 05/10/21 10:05 Blood Type O POSITIVE Discharge Plan Triage Chief Complaint: Abn Labs ED Provider: Tunde Fierro Dx/Rx/DC Orders Clinical Impression: Thrombocytopenia, Acute myelogenous leukemia, Pancytopenia Instructions: Thrombocytopenia Prescriptions: No Action nitroglycerin [Nitrostat] 0.4 mg tablet, sublingual 0.4 mg SUBLINGUAL Q5M PRN (Reason: Angina) RF: 0 Cepacol Sore Throat (ebony-men) 15-3.6 mg Lozenge 1 ceci mucous membrane Q2H PRN PRN (Reason: SORE THROAT) Qty: 0 RF: 0 acyclovir 800 mg tablet 800 mg PO BID RF: 0 allopurinol 300 mg tablet 300 mg PO DAILY RF: 0 levofloxacin 500 mg tablet 500 mg PO DAILY RF: 0 lisinopril 5 mg tablet 10 mg PO QHS RF: 0 Docusate Plus 100 mg PO/SL BID RF: 0 sennosides 17.2 mg PO/SL BID RF: 0 oxycodone 5 mg Tablet 5 mg PO Q4H PRN PRN (Reason: Pain Score 4-10) 7 Days Qty: 15 RF: 0 metformin 500 mg tablet 500 mg PO BID Qty: 60 RF: 0 magnesium 200 mg tablet 200 mg PO DAILY Qty: 30 RF: 0 rosuvastatin [Crestor] 10 mg tablet 10 mg PO DAILY Qty: 90 RF: 3 carvedilol 6.25 mg tablet 6.25 mg PO BID Qty: 180 RF: 3 ranolazine 500 mg tablet extended release 12 hr 500 mg PO DAILY Qty: 90 RF: 3 Primary Care Provider: Jose Luis Leija Referrals: Jose Luis Leija MD [Primary Care Provider] - Keep [facility] appointment Disposition Disposition: Home, Self Care
[2021-05-10 13:17] VITALS: BP 125/77; PULSE 85; RESP 16; TEMP 36.6; O2SAT 99
[2021-05-10 14:13] VITALS: BP 121/88; PULSE 80; RESP 16; TEMP 36.8; O2SAT 100
[2021-05-10 14:28] VITALS: BP 104/62; PULSE 79; RESP 18; TEMP 36.6; O2SAT 98
== END 2021-05-10 14:53 | disposition home or self-care (01) ==
PROVIDERS: Emergency Provider Emergency Medicine; PCP Family Medicine; Visit Provider Emergency Medicine
DX: D69.6 Thrombocytopenia, unspecified (principal); C92.00 Acute myeloblastic leukemia, not having achieved remission; D61.818 Other pancytopenia; I25.5 Ischemic cardiomyopathy; M06.9 Rheumatoid arthritis, unspecified; I25.10 Atherosclerotic heart disease of native coronary artery without angina pectoris; I10 Essential (primary) hypertension; E78.5 Hyperlipidemia, unspecified; I25.2 Old myocardial infarction; Z79.84 Long term (current) use of oral hypoglycemic drugs; Z79.899 Other long term (current) drug therapy; Z86.73 Personal history of transient ischemic attack (TIA), and cerebral infarction without residual deficits; Z87.891 Personal history of nicotine dependence
CPT/HCPCS: 36430; 86900; 86901; 86965; 99282; J7040; P9035; A4216

== ENCOUNTER 2021-05-12 12:29 | Outpatient (RCR) | payer OTHER, MEDICARE, SELFPAY ==
[2021-05-09 16:58] LABS: Absolute Lymphocyte Count 0.54 X10^3/uL (0.83-4.51); Absolute Neutrophil Count 0.3 X10^3/uL (2.0-7.7); Basophil# 0.01 X10^3/uL; Eosinophil# 0.01 X10^3/uL; Hematocrit 27.9 % (40-54); Hemoglobin 9.6 g/dL (13.0-16.5); Lymphocyte # 0.54 X10^3/ul (0.83-4.51); Lymphocyte % 53.5 % (19-41); Mean Corp Hgb Conc 34.4 g/dL (32-36); Mean Corpuscular Hgb 33.4 pg (27.0-32.0); Mean Corpuscular Volume 97.2 fL (80-94); Monocyte# 0.16 X10^3/uL; Monocyte% 15.8 % (0-10); NRBC Flagged by Analyzer 0 % (0-5); Neutrophil # 0.27 X10^3/uL (2.7-7.7); Neutrophil % 26.7 % (47-70); POSITIVE COUNT YES; POSITIVE DIFFERENTIAL YES; POSITIVE MORPHOLOGY YES; Platelet Count 14 K/mm3 (150-450); RBC Distribution Width CV 17.6 % (11.6-14.6); RBC Distribution Width SD 57.7 fl (35.1-43.9); Red Blood Count 2.87 M/mm3 (4.6-6.2)
[2021-05-09 17:04] LABS: Differential Indicated SCAN CRITERIA MET
[2021-05-09 17:22] LABS: Differential Comment SEE COMMENTS
[2021-05-09 17:23] LABS: Anisocytosis 1+; Hypochromasia 1+; Macrocytosis 1+; Ovalocyte 1+; Platelet Estimate MKD DEC (ADEQ); Polychromasia RARE; Red Cell Morphology N CHROM NORMAL (NORM C&C)
[2021-05-09 17:50] LABS: ALB/GLOB Ratio 0.8 RATIO (0.9-2.4); AST(SGOT) 13 U/L (15-37); Alanine Aminotransfer ALT/SGPT 24 U/L (16-61); Albumin, Serum 2.7 g/dL (3.2-5.0); Alkaline Phosphatase 109 U/L (45-117); Anion Gap 8 (5-15); BUN 12 mg/dL (7-18); BUN/Creat Ratio 21.4 RATIO (10-20); Calcium,Total 8.6 mg/dL (8.5-10.1); Chloride 99 mmol/L (98-107); Creatinine, Serum 0.56 mg/dL (0.70-1.30); EST Glomerular Filtration Rate 156 mL/min (>60); Est Glom Filt Rate - Afr Amer 189 mL/min (>60); Globulin 3.5 g/dL (2.2-4.2); Glucose 262 mg/dL (74-106); Protein, Total 6.2 g/dL (6.4-8.2); Sodium Level 133 mmol/L (136-145)
[2021-05-12 12:50] LABS: Absolute Lymphocyte Count 0.59 X10^3/uL (0.83-4.51); Absolute Neutrophil Count 0.2 X10^3/uL (2.0-7.7); Eosinophil# 0.01 X10^3/uL; Hematocrit 24.1 % (40-54); Hemoglobin 8.4 g/dL (13.0-16.5); Lymphocyte # 0.59 X10^3/ul (0.83-4.51); Lymphocyte % 61.5 % (19-41); Mean Corp Hgb Conc 34.9 g/dL (32-36); Mean Corpuscular Hgb 34.7 pg (27.0-32.0); Mean Corpuscular Volume 99.6 fL (80-94); Mean Platelet Vol. 13.4 fl (6.2-12.0); Monocyte# 0.14 X10^3/uL; Monocyte% 14.6 % (0-10); NRBC Flagged by Analyzer 0 % (0-5); Neutrophil # 0.21 X10^3/uL (2.7-7.7); Neutrophil % 21.9 % (47-70); POSITIVE COUNT YES; POSITIVE DIFFERENTIAL YES; POSITIVE MORPHOLOGY YES; Platelet Count 34 K/mm3 (150-450); RBC Distribution Width CV 17.5 % (11.6-14.6); RBC Distribution Width SD 57.9 fl (35.1-43.9); Red Blood Count 2.42 M/mm3 (4.6-6.2)
[2021-05-12 13:04] LABS: Differential Indicated SCAN CRITERIA MET
[2021-05-12 13:20] LABS: Anisocytosis 1+; Basophilic Stippling RARE; Platelet Estimate MKD DEC (ADEQ)
[2021-05-12 13:28] LABS: ALB/GLOB Ratio 0.6 RATIO (0.9-2.4); AST(SGOT) 33 U/L (15-37); Alanine Aminotransfer ALT/SGPT 48 U/L (16-61); Albumin, Serum 2.5 g/dL (3.2-5.0); Alkaline Phosphatase 99 U/L (45-117); Anion Gap 7 (5-15); BUN 8 mg/dL (7-18); BUN/Creat Ratio 15.5 RATIO (10-20); Calcium,Total 8.5 mg/dL (8.5-10.1); Chloride 100 mmol/L (98-107); Creatinine, Serum 0.52 mg/dL (0.70-1.30); EST Glomerular Filtration Rate 171 mL/min (>60); Est Glom Filt Rate - Afr Amer 207 mL/min (>60); Globulin 4.3 g/dL (2.2-4.2); Glucose 207 mg/dL (74-106); Potassium 4.4 mmol/L (3.5-5.1); Protein, Total 6.8 g/dL (6.4-8.2); Sodium Level 133 mmol/L (136-145)
[2021-05-13 10:16] LABS: Pathologist Review Reviewed
[2021-05-13 10:34] LABS: Pathologist Review Reviewed
== END 2021-06-05 23:59 ==
LOC: HHLAB 12:29
PROVIDERS: PCP Family Medicine
DX: D61.818 Other pancytopenia (principal)
CPT/HCPCS: 80053; 85025

== ENCOUNTER → 2021-05-26 09:34 | Outpatient (CLI) | payer OTHER, MEDICARE, SELFPAY ==
[2021-05-26 11:42] LABS: Absolute Lymphocyte Count 0.73 X10^3/uL (0.83-4.51); Hematocrit 24.7 % (40-54); Hemoglobin 8.9 g/dL (13.0-16.5); Lymphocyte # 0.73 X10^3/ul (0.83-4.51); Lymphocyte % 91.3 % (19-41); Mean Corpuscular Hgb 31.1 pg (27.0-32.0); Mean Corpuscular Volume 86.4 fL (80-94); Monocyte# 0.03 X10^3/uL; Monocyte% 3.8 % (0-10); NRBC Flagged by Analyzer 0 % (0-5); Neutrophil # 0.03 X10^3/uL (2.7-7.7); Neutrophil % 3.6 % (47-70); POSITIVE COUNT YES; POSITIVE DIFFERENTIAL YES; POSITIVE MORPHOLOGY YES; Platelet Count 4 K/mm3 (150-450); RBC Distribution Width SD 45.2 fl (35.1-43.9); Red Blood Count 2.86 M/mm3 (4.6-6.2); White Blood Count 0.8 K/mm3 (4.4-11.0)
[2021-05-26 11:44] LABS: Differential Indicated SCAN CRITERIA MET
[2021-05-26 12:41] LABS: ALB/GLOB Ratio 0.7 RATIO (0.9-2.4); AST(SGOT) 27 U/L (15-37); Alanine Aminotransfer ALT/SGPT 31 U/L (16-61); Albumin, Serum 2.7 g/dL (3.2-5.0); Alkaline Phosphatase 133 U/L (45-117); Anion Gap 5 (5-15); BUN 8 mg/dL (7-18); BUN/Creat Ratio 15.7 RATIO (10-20); Bilirubin, Direct 0.24 mg/dL (0.00-0.30); Calcium,Total 8.4 mg/dL (8.5-10.1); Chloride 103 mmol/L (98-107); Creatinine, Serum 0.51 mg/dL (0.70-1.30); EST Glomerular Filtration Rate 174 mL/min (>60); Est Glom Filt Rate - Afr Amer 211 mL/min (>60); Globulin 3.8 g/dL (2.2-4.2); Glucose 141 mg/dL (74-106); Potassium 3.7 mmol/L (3.5-5.1); Protein, Total 6.5 g/dL (6.4-8.2); Sodium Level 136 mmol/L (136-145)
[2021-05-27 13:03] LABS: Pathologist Review Reviewed
== END ==
PROVIDERS: PCP Family Medicine
DX: C92.00 Acute myeloblastic leukemia, not having achieved remission (principal); D61.818 Other pancytopenia; E43 Unspecified severe protein-calorie malnutrition; M06.9 Rheumatoid arthritis, unspecified; M00.862 Arthritis due to other bacteria, left knee; E11.65 Type 2 diabetes mellitus with hyperglycemia; D63.0 Anemia in neoplastic disease; R53.1 Weakness; I25.10 Atherosclerotic heart disease of native coronary artery without angina pectoris; I65.23 Occlusion and stenosis of bilateral carotid arteries; I25.2 Old myocardial infarction; I10 Essential (primary) hypertension; E78.5 Hyperlipidemia, unspecified; G89.29 Other chronic pain; Z79.84 Long term (current) use of oral hypoglycemic drugs; Z79.891 Long term (current) use of opiate analgesic; Z79.899 Other long term (current) drug therapy; Z95.5 Presence of coronary angioplasty implant and graft; Z86.73 Personal history of transient ischemic attack (TIA), and cerebral infarction without residual deficits; Z87.891 Personal history of nicotine dependence
CPT/HCPCS: 36415; 80053; 82248; 85025; 86900; 86901

== ENCOUNTER → 2021-05-29 03:40 | Outpatient (CLI) | payer OTHER, MEDICARE, SELFPAY ==
[2021-05-29 11:11] LABS: Absolute Lymphocyte Count 0.63 X10^3/uL (0.83-4.51); Hematocrit 22.6 % (40-54); Hemoglobin 7.9 g/dL (13.0-16.5); Lymphocyte # 0.63 X10^3/ul (0.83-4.51); Lymphocyte % 96.9 % (19-41); Mean Corpuscular Hgb 31.6 pg (27.0-32.0); Mean Corpuscular Volume 90.4 fL (80-94); Monocyte# 0.01 X10^3/uL; Monocyte% 1.5 % (0-10); NRBC Flagged by Analyzer 0 % (0-5); Neutrophil # 0.01 X10^3/uL (2.7-7.7); Neutrophil % 1.6 % (47-70); POSITIVE COUNT YES; POSITIVE DIFFERENTIAL YES; POSITIVE MORPHOLOGY YES; RBC Distribution Width CV 14.8 % (11.6-14.6); RBC Distribution Width SD 47.2 fl (35.1-43.9)
[2021-05-29 11:16] LABS: Differential Indicated SCAN CRITERIA MET
[2021-05-29 11:21] LABS: White Blood Count 0.7 K/mm3 (4.4-11.0)
[2021-05-29 11:22] LABS: Platelet Count 17 K/mm3 (150-450)
[2021-05-29 11:25] LABS: ALB/GLOB Ratio 0.8 RATIO (0.9-2.4); AST(SGOT) 21 U/L (15-37); Alanine Aminotransfer ALT/SGPT 25 U/L (16-61); Albumin, Serum 2.7 g/dL (3.2-5.0); Alkaline Phosphatase 135 U/L (45-117); Anion Gap 6 (5-15); BUN 8 mg/dL (7-18); BUN/Creat Ratio 14.2 RATIO (10-20); Calcium,Total 8.7 mg/dL (8.5-10.1); Chloride 107 mmol/L (98-107); Creatinine, Serum 0.56 mg/dL (0.70-1.30); EST Glomerular Filtration Rate 156 mL/min (>60); Est Glom Filt Rate - Afr Amer 188 mL/min (>60); Globulin 3.4 g/dL (2.2-4.2); Glucose 185 mg/dL (74-106); Potassium 3.8 mmol/L (3.5-5.1); Protein, Total 6.1 g/dL (6.4-8.2); Sodium Level 139 mmol/L (136-145)
[2021-05-29 11:32] LABS: Platelet Estimate MKD DEC (ADEQ); Reactive Lymphocyte RARE
[2021-05-30 11:47] LABS: Pathologist Review Reviewed
== END ==
PROVIDERS: PCP Family Medicine
DX: C92.00 Acute myeloblastic leukemia, not having achieved remission (principal); D61.818 Other pancytopenia; E43 Unspecified severe protein-calorie malnutrition; M06.9 Rheumatoid arthritis, unspecified; M00.862 Arthritis due to other bacteria, left knee; E11.65 Type 2 diabetes mellitus with hyperglycemia; D63.0 Anemia in neoplastic disease; R53.1 Weakness; I25.10 Atherosclerotic heart disease of native coronary artery without angina pectoris; I65.23 Occlusion and stenosis of bilateral carotid arteries; I25.2 Old myocardial infarction; I10 Essential (primary) hypertension; E78.5 Hyperlipidemia, unspecified; G89.29 Other chronic pain; Z79.84 Long term (current) use of oral hypoglycemic drugs; Z79.891 Long term (current) use of opiate analgesic; Z95.1 Presence of aortocoronary bypass graft; Z95.5 Presence of coronary angioplasty implant and graft; Z79.899 Other long term (current) drug therapy; Z87.891 Personal history of nicotine dependence
CPT/HCPCS: 36415; 80053; 82248; 85025

== ENCOUNTER → 2021-05-30 08:58 | Outpatient (CLI) | payer OTHER, MEDICARE, SELFPAY ==
[2021-05-30 09:21] VITALS: BP 120/79; PULSE 81; RESP 18; TEMP 36.8; O2SAT 98
[2021-05-30] MEDS: Acetaminophen 325 MG Tablet 650 MG PO (10:17)
[2021-05-30] MEDS: DiphenhydrAMINE 25 MG Capsule PO (10:17)
[2021-05-30 10:40] VITALS: BP 138/84; PULSE 72; RESP 16; TEMP 36.9; O2SAT 99
[2021-05-30 10:54] VITALS: BP 125/87; PULSE 77; RESP 16; TEMP 36.6
[2021-05-30 11:23] VITALS: BP 123/73; BP 131/75; PULSE 71; PULSE 72; RESP 16; TEMP 36.2; TEMP 36.6; O2SAT 100; O2SAT 98
[2021-05-30 12:23] VITALS: BP 131/82; PULSE 72; RESP 16; TEMP 36.3; O2SAT 100
== END ==
PROVIDERS: PCP Family Medicine
DX: D46.9 Myelodysplastic syndrome, unspecified (principal)
CPT/HCPCS: 36430; 86850; 86900; 86901; 86920; 86922; 86965; J7040; P9035; P9040; A4216

== ENCOUNTER → 2021-06-02 09:16 | Outpatient (CLI) | payer OTHER, MEDICARE, SELFPAY ==
[2021-06-02 10:50] LABS: Absolute Lymphocyte Count 0.56 X10^3/uL (0.83-4.51); Hematocrit 23.5 % (40-54); Hemoglobin 8.2 g/dL (13.0-16.5); Lymphocyte # 0.56 X10^3/ul (0.83-4.51); Lymphocyte % 93.3 % (19-41); Mean Corp Hgb Conc 34.9 g/dL (32-36); Mean Corpuscular Hgb 30.4 pg (27.0-32.0); Mean Platelet Vol. 11.2 fl (6.2-12.0); Monocyte# 0.03 X10^3/uL; NRBC Flagged by Analyzer 0 % (0-5); Neutrophil # 0.01 X10^3/uL (2.7-7.7); Neutrophil % 1.7 % (47-70); POSITIVE COUNT YES; POSITIVE DIFFERENTIAL YES; POSITIVE MORPHOLOGY YES; Platelet Count 6 K/mm3 (150-450); RBC Distribution Width CV 14.2 % (11.6-14.6)
[2021-06-02 11:19] LABS: ALB/GLOB Ratio 0.8 RATIO (0.9-2.4); AST(SGOT) 14 U/L (15-37); Alanine Aminotransfer ALT/SGPT 18 U/L (16-61); Albumin, Serum 2.9 g/dL (3.2-5.0); Alkaline Phosphatase 133 U/L (45-117); Anion Gap 7 (5-15); BUN 8 mg/dL (7-18); BUN/Creat Ratio 14.5 RATIO (10-20); Bilirubin, Direct 0.25 mg/dL (0.00-0.30); Calcium,Total 8.8 mg/dL (8.5-10.1); Chloride 105 mmol/L (98-107); Creatinine, Serum 0.55 mg/dL (0.70-1.30); EST Glomerular Filtration Rate 159 mL/min (>60); Est Glom Filt Rate - Afr Amer 193 mL/min (>60); Globulin 3.6 g/dL (2.2-4.2); Glucose 185 mg/dL (74-106); Potassium 3.5 mmol/L (3.5-5.1); Protein, Total 6.5 g/dL (6.4-8.2); Sodium Level 140 mmol/L (136-145)
[2021-06-02 11:43] LABS: Platelet Estimate MKD DEC (ADEQ); Red Cell Morphology NORM C+C NORMAL (NORM C&C)
[2021-06-02 13:36] LABS: White Blood Count 0.6 K/mm3 (4.4-11.0)
[2021-06-03 14:24] LABS: Pathologist Review Reviewed
== END ==
PROVIDERS: PCP Family Medicine
DX: C92.00 Acute myeloblastic leukemia, not having achieved remission (principal); D61.818 Other pancytopenia; E43 Unspecified severe protein-calorie malnutrition; M06.9 Rheumatoid arthritis, unspecified; M00.862 Arthritis due to other bacteria, left knee; E11.65 Type 2 diabetes mellitus with hyperglycemia; D63.0 Anemia in neoplastic disease; R53.1 Weakness; I25.10 Atherosclerotic heart disease of native coronary artery without angina pectoris; I65.23 Occlusion and stenosis of bilateral carotid arteries; I25.2 Old myocardial infarction; I10 Essential (primary) hypertension; E78.5 Hyperlipidemia, unspecified; G89.29 Other chronic pain; Z79.84 Long term (current) use of oral hypoglycemic drugs; Z79.891 Long term (current) use of opiate analgesic; Z79.899 Other long term (current) drug therapy; Z95.1 Presence of aortocoronary bypass graft; Z95.5 Presence of coronary angioplasty implant and graft; Z86.73 Personal history of transient ischemic attack (TIA), and cerebral infarction without residual deficits; Z87.891 Personal history of nicotine dependence
CPT/HCPCS: 36415; 80053; 82248; 85025; 86900; 86901

== ENCOUNTER → 2021-06-03 08:52 | Outpatient (CLI) | payer OTHER, MEDICARE, SELFPAY ==
[2021-06-03 08:59] VITALS: BP 137/82; PULSE 87; RESP 16; TEMP 35.6; O2SAT 100
[2021-06-03] MEDS: Acetaminophen 325 MG Tablet 650 MG PO (09:07)
[2021-06-03] MEDS: DiphenhydrAMINE 25 MG Capsule PO (09:08)
[2021-06-03 09:38] VITALS: BP 126/82; PULSE 78; RESP 16; TEMP 36.2; O2SAT 98
[2021-06-03 10:10] VITALS: BP 123/87; PULSE 77; RESP 16; TEMP 36.1; O2SAT 98
== END ==
PROVIDERS: PCP Family Medicine
DX: D46.9 Myelodysplastic syndrome, unspecified (principal)
CPT/HCPCS: 36430; 86900; 86901; 86965; J7040; P9035; A4216

== ENCOUNTER → 2021-06-05 09:18 | Outpatient (CLI) | payer OTHER, MEDICARE, SELFPAY ==
[2021-06-05 11:05] LABS: Absolute Lymphocyte Count 0.82 X10^3/uL (0.83-4.51); Hematocrit 22.5 % (40-54); Hemoglobin 7.7 g/dL (13.0-16.5); Lymphocyte # 0.82 X10^3/ul (0.83-4.51); Lymphocyte % 96.5 % (19-41); Mean Corp Hgb Conc 34.2 g/dL (32-36); Mean Corpuscular Hgb 30.3 pg (27.0-32.0); Mean Corpuscular Volume 88.6 fL (80-94); Mean Platelet Vol. 11.4 fl (6.2-12.0); Monocyte# 0.02 X10^3/uL; Monocyte% 2.4 % (0-10); NRBC Flagged by Analyzer 0 % (0-5); Neutrophil # 0.01 X10^3/uL (2.7-7.7); Neutrophil % 1.1 % (47-70); POSITIVE COUNT YES; POSITIVE DIFFERENTIAL YES; POSITIVE MORPHOLOGY YES; Platelet Count 15 K/mm3 (150-450); RBC Distribution Width CV 13.9 % (11.6-14.6); RBC Distribution Width SD 43.8 fl (35.1-43.9); Red Blood Count 2.54 M/mm3 (4.6-6.2)
[2021-06-05 11:27] LABS: ALB/GLOB Ratio 0.8 RATIO (0.9-2.4); AST(SGOT) 16 U/L (15-37); Alanine Aminotransfer ALT/SGPT 18 U/L (16-61); Albumin, Serum 3.1 g/dL (3.2-5.0); Alkaline Phosphatase 121 U/L (45-117); Anion Gap 6 (5-15); BUN 7 mg/dL (7-18); BUN/Creat Ratio 12.7 RATIO (10-20); Bilirubin, Direct 0.27 mg/dL (0.00-0.30); Calcium,Total 8.8 mg/dL (8.5-10.1); Chloride 103 mmol/L (98-107); Creatinine, Serum 0.55 mg/dL (0.70-1.30); EST Glomerular Filtration Rate 159 mL/min (>60); Est Glom Filt Rate - Afr Amer 192 mL/min (>60); Globulin 3.9 g/dL (2.2-4.2); Glucose 139 mg/dL (74-106); Potassium 3.6 mmol/L (3.5-5.1); Sodium Level 135 mmol/L (136-145)
[2021-06-05 11:42] LABS: White Blood Count 0.9 K/mm3 (4.4-11.0)
[2021-06-05 11:43] LABS: Differential Indicated SCAN CRITERIA MET
[2021-06-05 11:55] LABS: Platelet Estimate MKD DEC (ADEQ); Red Cell Morphology NORM C+C NORMAL (NORM C&C)
[2021-06-05 14:00] LABS: Pathologist Review Reviewed
== END ==
PROVIDERS: PCP Family Medicine
DX: C92.00 Acute myeloblastic leukemia, not having achieved remission (principal); D61.818 Other pancytopenia; E43 Unspecified severe protein-calorie malnutrition; M06.9 Rheumatoid arthritis, unspecified; M00.862 Arthritis due to other bacteria, left knee; E11.65 Type 2 diabetes mellitus with hyperglycemia; D63.0 Anemia in neoplastic disease; R53.1 Weakness; I25.10 Atherosclerotic heart disease of native coronary artery without angina pectoris; I65.23 Occlusion and stenosis of bilateral carotid arteries; I25.2 Old myocardial infarction; I10 Essential (primary) hypertension; E78.5 Hyperlipidemia, unspecified; G89.29 Other chronic pain; Z79.84 Long term (current) use of oral hypoglycemic drugs; Z79.899 Other long term (current) drug therapy; Z79.891 Long term (current) use of opiate analgesic; Z95.1 Presence of aortocoronary bypass graft; Z95.5 Presence of coronary angioplasty implant and graft; Z86.73 Personal history of transient ischemic attack (TIA), and cerebral infarction without residual deficits; Z87.891 Personal history of nicotine dependence
CPT/HCPCS: 36415; 80053; 82248; 85025

== ENCOUNTER → 2021-06-09 08:22 | Outpatient (CLI) | payer OTHER, MEDICARE, SELFPAY ==
[2021-06-09 09:26] LABS: Absolute Lymphocyte Count 0.44 X10^3/uL (0.83-4.51); Hematocrit 22.1 % (40-54); Hemoglobin 7.7 g/dL (13.0-16.5); Lymphocyte # 0.44 X10^3/ul (0.83-4.51); Lymphocyte % 97.8 % (19-41); Mean Corp Hgb Conc 34.8 g/dL (32-36); Mean Corpuscular Hgb 30.1 pg (27.0-32.0); Mean Corpuscular Volume 86.3 fL (80-94); Mean Platelet Vol. 9.9 fl (6.2-12.0); Monocyte# 0.01 X10^3/uL; Monocyte% 2.2 % (0-10); NRBC Flagged by Analyzer 0 % (0-5); POSITIVE COUNT YES; POSITIVE DIFFERENTIAL YES; POSITIVE MORPHOLOGY YES; RBC Distribution Width CV 13.2 % (11.6-14.6); RBC Distribution Width SD 40.4 fl (35.1-43.9); Red Blood Count 2.56 M/mm3 (4.6-6.2)
[2021-06-09 09:43] LABS: White Blood Count 0.5 K/mm3 (4.4-11.0)
[2021-06-09 09:44] LABS: Differential Indicated SCAN CRITERIA MET; Platelet Count 39 K/mm3 (150-450)
[2021-06-09 09:50] LABS: Platelet Estimate MKD DEC (ADEQ)
[2021-06-09 10:26] LABS: ALB/GLOB Ratio 0.7 RATIO (0.9-2.4); AST(SGOT) 15 U/L (15-37); Alanine Aminotransfer ALT/SGPT 17 U/L (16-61); Albumin, Serum 2.8 g/dL (3.2-5.0); Alkaline Phosphatase 105 U/L (45-117); Anion Gap 7 (5-15); BUN 8 mg/dL (7-18); BUN/Creat Ratio 12.5 RATIO (10-20); Bilirubin, Direct 0.34 mg/dL (0.00-0.30); Calcium,Total 8.9 mg/dL (8.5-10.1); Chloride 102 mmol/L (98-107); Creatinine, Serum 0.64 mg/dL (0.70-1.30); EST Glomerular Filtration Rate 134 mL/min (>60); Est Glom Filt Rate - Afr Amer 163 mL/min (>60); Globulin 3.9 g/dL (2.2-4.2); Glucose 203 mg/dL (74-106); Potassium 3.8 mmol/L (3.5-5.1); Protein, Total 6.7 g/dL (6.4-8.2); Sodium Level 134 mmol/L (136-145)
[2021-06-09 12:36] LABS: Pathologist Review Reviewed
== END ==
PROVIDERS: PCP Family Medicine
DX: C92.00 Acute myeloblastic leukemia, not having achieved remission (principal); D61.818 Other pancytopenia; E43 Unspecified severe protein-calorie malnutrition; M06.9 Rheumatoid arthritis, unspecified; M00.862 Arthritis due to other bacteria, left knee; E11.65 Type 2 diabetes mellitus with hyperglycemia; D63.0 Anemia in neoplastic disease; R53.1 Weakness; I25.10 Atherosclerotic heart disease of native coronary artery without angina pectoris; I65.23 Occlusion and stenosis of bilateral carotid arteries; I25.2 Old myocardial infarction; I10 Essential (primary) hypertension; E78.5 Hyperlipidemia, unspecified; G89.29 Other chronic pain; Z79.84 Long term (current) use of oral hypoglycemic drugs; Z79.899 Other long term (current) drug therapy; Z79.891 Long term (current) use of opiate analgesic; Z95.1 Presence of aortocoronary bypass graft; Z95.5 Presence of coronary angioplasty implant and graft; Z86.73 Personal history of transient ischemic attack (TIA), and cerebral infarction without residual deficits; Z87.891 Personal history of nicotine dependence
CPT/HCPCS: 36415; 80053; 82248; 85025; 86850; 86900; 86901; 86920; 86922

== ENCOUNTER 2021-06-10 02:19 | Emergency (ER) | payer OTHER, MEDICARE, SELFPAY ==
[2021-06-10 02:20] VITALS: BP 150/88; PULSE 95; RESP 16; TEMP 36.3; O2SAT 100; BMI 29.9
--- NOTE | 2021-06-10 02:50 | CT_ITS ---
STUDY: CT BRAIN WITHOUT CONTRAST REASON FOR EXAM: Male, 66 years old. fall RADIATION DOSAGE (If Supplied By Facility): CTDIvol = ( 44.99 ) mGy, DLP = ( 846.73 ) mGycm TECHNIQUE: Transaxial CT imaging of the brain was performed without administration of intravenous contrast material. Individualized dose optimization techniques were used for this CT. COMPARISON: MR brain 04/28/2016 FINDINGS: Normal soft tissue structures. Normal calvarium. There are new hypoattenuating foci in the left basal ganglia and right caudate, consistent with subacute/chronic lacunar infarcts.. Normal brainstem. Normal cerebellum. There is no intracranial hemorrhage. There are no findings of an acute ischemic infarction. Vascular calcifications. Moderate fluid in the right maxillary sinus. CT/Brain/Head without Contrast IMPRESSION: 1. No intracranial hemorrhage or depressed calvarial fracture. 2. Subacute/chronic lacunar infarcts in the bilateral basal ganglia. 3. Right maxillary sinus fluid, correlate for acute sinusitis. Electronically Signed: Elton Tinoco MD at 3:58 EDT ,
--- NOTE | 2021-06-10 02:50 | RAD_ITS ---
STUDY: X-RAY - UNILATERAL RIBS ( LEFT ) WITH CHEST REASON FOR EXAM: Male, 66 years old. fall TECHNIQUE - RIBS: 5 view(s) of the ribs. TECHNIQUE - CHEST: 1 COMPARISON: 05/04/2021. FINDINGS - RIBS: Normal visualized ribs without a demonstrated fracture. FINDINGS - CHEST: Median sternotomy and CABG. The lungs are clear and expanded. There is no demonstrated pleural abnormality. Normal size heart. Normal mediastinum and eunice. Normal visualized pulmonary arteries. Normal visualized aortic arch and descending thoracic aorta. Normal visualized thoracic spine. Status post left shoulder replacement. There is no demonstrated abnormality of the visualized soft tissue structures of the upper abdomen. RAD/Ribs Uni Min 3V w/PA Chest IMPRESSION: RIBS: Negative x-ray examination of the ribs. CHEST: No focal lung consolidative changes. Electronically Signed: Jeremias Dorman MD at 4:07 EDT ,
--- NOTE | 2021-06-10 02:50 | RAD_ITS ---
STUDY: X-RAY - PELVIS AND LEFT HIP REASON FOR EXAM: Male, 66 years old. fall TECHNIQUE: 3 views of the pelvis and hip. COMPARISON: None. FINDINGS: Status post L4-5 posterior spine fusion hardware. Atherosclerotic calcifications. There is a non-specific bowel gas pattern. Normal visualized soft tissue structures. Normal bilateral iliac wings, sacroiliac joints and visualized sacrum. Normal bilateral superior and inferior pubic rami. Normal pubic symphysis. Normal bilateral ischial tuberosities. Normal visualized femoral head. Normal acetabulum. Mild osteoarthritic changes with bilateral hip osteophytosis. RAD/HIP, UNI W/ Pelvis 2-3 Views IMPRESSION: No acute fracture or dislocation. Electronically Signed: Elton Tinoco MD at 4:01 EDT ,
[2021-06-10] MEDS: Ondansetron ODT 4 MG Tablet PO (04:14)
[2021-06-10] MEDS: HYDROmorphone 1 MG/ML Syringe 2 MG IM (04:14)
--- NOTE | 2021-06-10 04:15 | EDS_ITS ---
HPI History of Present Illness Chief Complaint: Fall Narrative Narrative: Patient is a 66-year-old male with past medical history of leukemia. He states that he is on chronic pain meds secondary to this. He states he has been constipated and has had a lot of rectal pain recently as he feels he needs to have a bowel movement. He states this evening he was in the shower trying to loosen his muscles up with the warm water when a stabilizing voip network technician broke and he fell. states she was just outside the curtain and witnessed the event and denies any loss of consciousness. Patient landed on his left side and has had pain to his left hip and chest wall and with concern for underlying injury was brought in for evaluation [facility] Medical History (Updated 06/10/21 @ 04:[address] 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 Bilateral carotid artery stenosis CVA (cerebral vascular accident) Essential (primary) hypertension Hyperlipidemia Ischemic cardiomyopathy Myelodysplasia (myelodysplastic syndrome) Old inferior wall myocardial infarction Pancytopenia Rheumatoid arthritis Septic arthritis of knee, left Home Medications nitroglycerin 0.4 mg sublingual tablet 0.4 mg SUBLINGUAL Q5M PRN 05/12/17 [History Last Taken Unknown] rosuvastatin 10 mg tablet 10 mg PO DAILY #90 tab 09/24/20 [Rx Last Taken Unknown] carvedilol 6.25 mg tablet 6.25 mg PO BID #180 tab 02/10/21 [Rx Last Taken Unknown] Cepacol Sore Throat (ebony-men) 1 ceci MUCOUS MEMBRANE Q2H PRN PRN #0 ea 04/17/21 [Rx Last Taken Unknown] Docusate Plus 100 mg PO/SL BID 05/04/21 [History Last Taken Unknown] acyclovir 800 mg PO BID 05/04/21 [History Last Taken Unknown] allopurinol 300 mg PO DAILY 05/04/21 [History Last Taken Unknown] levofloxacin 500 mg PO DAILY 05/04/21 [History Last Taken Unknown] lisinopril 10 mg PO QHS 05/04/21 [History Last Taken Unknown] sennosides 17.2 mg PO/SL BID 05/04/21 [History Last Taken Unknown] ranolazine 500 mg tablet,extended release,12 hr 500 mg PO DAILY #90 tab 05/05/21 [Rx Last Taken Unknown] magnesium 200 mg PO DAILY #30 tab 05/06/21 [Rx Last Taken Unknown] metformin 500 mg PO BID #60 tab 05/06/21 [Rx Last Taken Unknown] oxycodone 5 mg PO Q4H PRN PRN 7 Days #15 tab 05/06/21 [Rx Last Taken Unknown] Allergy/AdvReac Type Severity Reaction Status Date / Time No Known Allergies Allergy Verified 06/10/21 02:24 Family History (Updated 05/04/21 @ 16:15 by Lis Cabezas LABEL OPERATOR, LABEL OPERATOR-C) Father CAD (coronary artery disease) Diabetes Mother , related to sepsis from diverticulitis Arthritis Surgical History H/O cervical spine surgery (03/2019) H/O coronary artery bypass surgery (05/22/03) History of bone marrow biopsy History of coronary artery stent placement (04/14/16) History of left knee surgery (08/2018) History of shoulder surgery Social History Smoking Status: Former smoker alcohol intake: never substance use type: does not use caffeine: Yes Type: coffee Number of servings: 2 what type of physical activity do you participate in: walking and bicycling frequency: daily duration: 60-90 minutes/day seatbelt use: always do you feel safe at home: Yes ROS ROS ED Constitutional Constitutional ED: Denies chills or fever(s) ENT ENT ED: Denies sore throat Cardiovascular Cardiovascular: Denies chest pain Respiratory/Chest Respiratory/Chest: Denies cough or dyspnea Gastrointestinal Gastrointestinal: Reports constipation; Denies abdominal pain, diarrhea, nausea or vomiting Genitourinary Genitourinary ED: Denies dysuria Musculoskeletal Musculoskeletal: Reports arthralgias and back pain; Denies myalgias Integumentary Reports Abrasions; Denies rash Neurologic Neurologic: Reports weakness; Denies headache(s) Hematologic/Lymphatic Hematologic/Lymphatic: Reports easy bleeding and easy bruising EXAM Physical Exam Const Vital Signs: 06/10/21 02:20 06/10/21 02:24 06/10/21 04:17 Temperature 97.3 F L Temperature Source Temporal Pulse Rate 95 78 Respiratory Rate 16 17 Respiratory Effort Normal Respiratory Pattern Normal Blood Pressure 150/88 H 130/80 H Blood Pressure Mean 108 Pulse Ox 100 98 Oxygen Delivery Method Room Air Positive well nourished and well developed General Appearance ED: well developed HEENT Reports dry mucous membranes HEENT Narrative: No signs of depressed or basilar skull fracture. Patient does have a small area of soft tissue swelling and ecchymosis along the left zygomatic arch Mouth ED: Yes dry mucous membranes Mouth: dry mucous membranes Eyes PERRL and EOMs intact bilaterally Neck supple Neck Narrative: No bony deformity or step-off of the cervical spine no midline pain on palpation Chest Wall Chest Narrative: Patient has ecchymotic lesions along the left posterior lateral chest wall rib regions 4-8 with pain with palpation at the site but no bony deformity or crepitance Resp normal respiratory effort and clear to auscultation bilaterally Cardio regular rate and regular rhythm GI non-tender, non-distended and no masses GI Narrative: Abdomen is soft nontender and nondistended with hypoactive bowel sounds no voluntary guarding or rigidity no pulsatile mass Palpation: soft Narrative: Rectal tone is normal with a large amount of brown stool within the rectal vault Back/Spine Back/Spine Narrative: No bony deformity or step-off of the thoracic or lumbar spine no midline pain on palpation Extremity normal to inspection Extremity Narrative: Pelvis is stable there is no shortening or external rotation of either lower extremity. However there is pain with palpation of the left hip near the greater trochanter. There is also some ecchymotic lesions along the left proximal forearm and distal humerus without obvious bony deformity or joint effusion Neuro oriented x3 and CN's II-XII intact bilaterally Sensorium / Orientation: alert Psych mental status grossly normal Skin no rashes or lesions noted Skin Narrative: Ecchymotic lesions to the face ribs arms as documented above MDM MDM MDM Narrative Medical decision making narrative: Patient presented to the ER with a mechanical fall. He does have a history of thrombocytopenia because of his leukemia and therefore elected perform a head CT as well as x-ray areas that were painful. Imaging revealed no acute traumatic finding. I was able to manually disimpact the patient as well. The patient was ambulated and was able to walk with a steady gait. Therefore at this time with resolution of symptoms and no signs of acute trauma by imaging studies patient is safe for discharge Radiography Diagnostic Testing: Clinical Impression(s) from Imaging Studies Brain CT 06/10/21 02:50 IMPRESSION: 1. No intracranial hemorrhage or depressed calvarial fracture. 2. Subacute/chronic lacunar infarcts in the bilateral basal ganglia. 3. Right maxillary sinus fluid, correlate for acute sinusitis. Electronically Signed: Elton Tinoco MD at 3:58 EDT , Hip/Pelvis X-Ray 06/10/21 02:50 IMPRESSION: No acute fracture or dislocation. Electronically Signed: Elton Tinoco MD at 4:01 EDT , Ribs w/Chest X-Ray 06/10/21 02:50 IMPRESSION: RIBS: Negative x-ray examination of the ribs. CHEST: No focal lung consolidative changes. Electronically Signed: Jeremias Dorman MD at 4:07 EDT , Left rib series x-ray as well as pelvis x-ray as interpreted by the emergency medicine physician reveals no acute fracture dislocation or lung pathology Discharge Plan Triage Chief Complaint: Fall ED Provider: Stephen Larsen Dx/Rx/DC Orders Clinical Impression: Accidental fall, Contusion of multiple sites, Fecal impaction in rectum Instructions: Bruises (Contusions), ED Fecal Impaction, Treated Prescriptions: No Action nitroglycerin [Nitrostat] 0.4 mg tablet, sublingual 0.4 mg SUBLINGUAL Q5M PRN (Reason: Angina) RF: 0 Cepacol Sore Throat (ebony-men) 15-3.6 mg Lozenge 1 ceci mucous membrane Q2H PRN PRN (Reason: SORE THROAT) Qty: 0 RF: 0 acyclovir 800 mg tablet 800 mg PO BID RF: 0 allopurinol 300 mg tablet 300 mg PO DAILY RF: 0 levofloxacin 500 mg tablet 500 mg PO DAILY RF: 0 lisinopril 5 mg tablet 10 mg PO QHS RF: 0 Docusate Plus 100 mg PO/SL BID RF: 0 sennosides 17.2 mg PO/SL BID RF: 0 oxycodone 5 mg Tablet 5 mg PO Q4H PRN PRN (Reason: Pain Score 4-10) 7 Days Qty: 15 RF: 0 metformin 500 mg tablet 500 mg PO BID Qty: 60 RF: 0 magnesium 200 mg tablet 200 mg PO DAILY Qty: 30 RF: 0 rosuvastatin [Crestor] 10 mg tablet 10 mg PO DAILY Qty: 90 RF: 3 carvedilol 6.25 mg tablet 6.25 mg PO BID Qty: 180 RF: 3 ranolazine 500 mg tablet extended release 12 hr 500 mg PO DAILY Qty: 90 RF: 3 Primary Care Provider: Jose Luis Leija Referrals: Jose Luis Leija MD [Primary Care Provider] - Activity Restrictions/Additional Instructions: Please continue your medications as directed by your family doctor and try to stay well-hydrated as well as take MiraLAX or fiber supplements to prevent further bouts of constipation and return to the ER should you have any further concerns Disposition Disposition: Home, Self Care Discharge Date/Time: 06/10/21 04:38
[2021-06-10 04:17] VITALS: BP 130/80; PULSE 78; RESP 17; O2SAT 98
== END 2021-06-10 04:38 | disposition home or self-care (01) ==
PROVIDERS: Emergency Provider Emergency Medicine; PCP Family Medicine; Visit Provider Emergency Medicine
DX: S00.83XA Contusion of other part of head, initial encounter (principal); S50.12XA Contusion of left forearm, initial encounter; S20.222A Contusion of left back wall of thorax, initial encounter; M25.552 Pain in left hip; W01.0XXA Fall on same level from slipping, tripping and stumbling without subsequent striking against object, initial encounter; Y93.E1 Activity, personal bathing and showering; Y92.002 Bathroom of unspecified non-institutional (private) residence as the place of occurrence of the external cause; K56.41 Fecal impaction; M06.9 Rheumatoid arthritis, unspecified; I25.5 Ischemic cardiomyopathy; I25.10 Atherosclerotic heart disease of native coronary artery without angina pectoris; I10 Essential (primary) hypertension; E78.5 Hyperlipidemia, unspecified; I25.2 Old myocardial infarction; Z86.73 Personal history of transient ischemic attack (TIA), and cerebral infarction without residual deficits; Z95.1 Presence of aortocoronary bypass graft; Z95.5 Presence of coronary angioplasty implant and graft; Z87.891 Personal history of nicotine dependence
CPT/HCPCS: 70450; 71101; 73502; 96372; 99284; A4216

== ENCOUNTER → 2021-06-10 10:25 | Outpatient (CLI) | payer OTHER, MEDICARE, SELFPAY ==
[2021-06-10] MEDS: DiphenhydrAMINE 25 MG Capsule PO (10:55)
[2021-06-10 10:58] VITALS: BP 102/76; PULSE 89; RESP 16; TEMP 36.5; O2SAT 97; BMI 29.3
[2021-06-10 11:22] VITALS: BP 91/65; PULSE 87; RESP 16; TEMP 36.8; O2SAT 99
[2021-06-10 12:30] VITALS: BP 115/68; PULSE 89; RESP 16; TEMP 36.6; O2SAT 99
[2021-06-10 13:23] VITALS: BP 123/65; PULSE 93; RESP 18; TEMP 37.1
== END ==
PROVIDERS: PCP Family Medicine
DX: D46.9 Myelodysplastic syndrome, unspecified (principal)
CPT/HCPCS: 36430; 86644; 86850; 86900; 86901; 86920; 86922; J7040; P9040; A4216

== ENCOUNTER → 2021-06-11 08:22 | Outpatient (CLI) | payer OTHER, MEDICARE, SELFPAY ==
[2021-06-11 10:08] LABS: Absolute Lymphocyte Count 0.32 X10^3/uL (0.83-4.51); Hematocrit 21.3 % (40-54); Hemoglobin 7.5 g/dL (13.0-16.5); Lymphocyte # 0.32 X10^3/ul (0.83-4.51); Lymphocyte % 91.4 % (19-41); Mean Corp Hgb Conc 35.2 g/dL (32-36); Mean Corpuscular Hgb 30.6 pg (27.0-32.0); Mean Corpuscular Volume 86.9 fL (80-94); Mean Platelet Vol. 10.4 fl (6.2-12.0); Monocyte# 0.02 X10^3/uL; Monocyte% 5.7 % (0-10); NRBC Flagged by Analyzer 8.6 % (0-5); Neutrophil # 0.01 X10^3/uL (2.7-7.7); Neutrophil % 2.9 % (47-70); POSITIVE COUNT YES; POSITIVE DIFFERENTIAL YES; POSITIVE MORPHOLOGY YES; Platelet Count 93 K/mm3 (150-450); RBC Distribution Width CV 13.2 % (11.6-14.6); RBC Distribution Width SD 40.4 fl (35.1-43.9); Red Blood Count 2.45 M/mm3 (4.6-6.2)
[2021-06-11 10:21] LABS: ALB/GLOB Ratio 0.6 RATIO (0.9-2.4); AST(SGOT) 18 U/L (15-37); Alanine Aminotransfer ALT/SGPT 15 U/L (16-61); Albumin, Serum 2.6 g/dL (3.2-5.0); Alkaline Phosphatase 82 U/L (45-117); Anion Gap 7 (5-15); BUN 8 mg/dL (7-18); Bilirubin, Direct 0.51 mg/dL (0.00-0.30); Calcium,Total 8.4 mg/dL (8.5-10.1); Chloride 101 mmol/L (98-107); Creatinine, Serum 0.67 mg/dL (0.70-1.30); EST Glomerular Filtration Rate 128 mL/min (>60); Est Glom Filt Rate - Afr Amer 155 mL/min (>60); Glucose 239 mg/dL (74-106); Potassium 3.2 mmol/L (3.5-5.1); Protein, Total 6.6 g/dL (6.4-8.2); Sodium Level 133 mmol/L (136-145)
[2021-06-11 10:44] LABS: Differential Indicated SCAN CRITERIA MET; White Blood Count 0.4 K/mm3 (4.4-11.0)
[2021-06-11 10:48] LABS: Differential Comment SCANNED
[2021-06-12 11:26] LABS: Pathologist Review Reviewed
== END ==
PROVIDERS: PCP Family Medicine
DX: C92.00 Acute myeloblastic leukemia, not having achieved remission (principal); D61.818 Other pancytopenia; E43 Unspecified severe protein-calorie malnutrition; M06.9 Rheumatoid arthritis, unspecified; M00.862 Arthritis due to other bacteria, left knee; E11.65 Type 2 diabetes mellitus with hyperglycemia; D63.0 Anemia in neoplastic disease; R53.1 Weakness; I25.10 Atherosclerotic heart disease of native coronary artery without angina pectoris; I65.23 Occlusion and stenosis of bilateral carotid arteries; I25.2 Old myocardial infarction; I10 Essential (primary) hypertension; E78.5 Hyperlipidemia, unspecified; G89.29 Other chronic pain; Z79.84 Long term (current) use of oral hypoglycemic drugs; Z79.899 Other long term (current) drug therapy; Z79.891 Long term (current) use of opiate analgesic; Z95.1 Presence of aortocoronary bypass graft; Z95.5 Presence of coronary angioplasty implant and graft; Z86.73 Personal history of transient ischemic attack (TIA), and cerebral infarction without residual deficits; Z87.891 Personal history of nicotine dependence
CPT/HCPCS: 36415; 80053; 82248; 85025

== ENCOUNTER 2021-06-12 09:21 | Inpatient (IN) | payer OTHER, MEDICARE, SELFPAY ==
[2021-06-12] VITALS (12 sets, daily range): BP systolic 122–136; BP diastolic 69–84; PULSE 90–105; RESP 15–20; TEMP 37–37.6; O2SAT 94–100; BMI 30.2; BMI 28.0
[2021-06-12 09:57] LABS: Hematocrit 24.5 % (40-54); Hemoglobin 8.4 g/dL (13.0-16.5); Mean Corp Hgb Conc 34.3 g/dL (32-36); Mean Corpuscular Hgb 29.9 pg (27.0-32.0); Mean Corpuscular Volume 87.2 fL (80-94); Monocyte# 0.01 X10^3/uL; Monocyte% 2.3 % (0-10); NRBC Flagged by Analyzer 0 % (0-5); Neutrophil # 0.02 X10^3/uL (2.7-7.7); Neutrophil % 4.7 % (47-70); POSITIVE COUNT YES; POSITIVE DIFFERENTIAL YES; POSITIVE MORPHOLOGY YES; Platelet Count 146 K/mm3 (150-450); RBC Distribution Width CV 13.6 % (11.6-14.6); RBC Distribution Width SD 41.3 fl (35.1-43.9); Red Blood Count 2.81 M/mm3 (4.6-6.2)
[2021-06-12 10:06] LABS: Anion Gap 6 (5-15); BUN 11 mg/dL (7-18); BUN/Creat Ratio 14.6 RATIO (10-20); Calcium,Total 8.5 mg/dL (8.5-10.1); Chloride 101 mmol/L (98-107); Creatinine, Serum 0.75 mg/dL (0.70-1.30); EST Glomerular Filtration Rate 111 mL/min (>60); Est Glom Filt Rate - Afr Amer 134 mL/min (>60); Estimated Creatinine Clearance 93.03 ml/min; Glucose 206 mg/dL (74-106); Potassium 3.3 mmol/L (3.5-5.1); Sodium Level 133 mmol/L (136-145)
--- NOTE | 2021-06-12 10:09 | RAD_ITS ---
STUDY: X-RAY CHEST REASON FOR EXAM: Male, 66 years old. Fever. TECHNIQUE: Single AP portable view of the chest. COMPARISON: Comparison is made with prior study dated 06/10/2021. FINDINGS: EKG electrodes are seen. The lungs are clear and expanded. There is no demonstrated pleural abnormality. Sternal cerclage wires and vascular clips are present from a prior sternotomy and coronary artery bypass graft procedure (CABG). Normal mediastinum and eunice. Normal visualized pulmonary arteries. There is atherosclerotic tortuosity of the aortic arch and descending thoracic aorta. There is a levoscoliosis of the thoracic spine. The patient is status post left reverse shoulder replacement. There is no demonstrated abnormality of the visualized soft tissue structures of the upper abdomen. RAD/Chest 1 View (Portable) IMPRESSION: Status post CABG. No acute abnormality is seen. Electronically Signed: Mateusz Emmanuel MD at 10:34 EDT ,
--- NOTE | 2021-06-12 10:09 | EX.ED.DYSGE1 ---
HPI History of Present Illness Chief Complaint: Fever Detail of Chief Complaint: Fever and not feeling well since yesterday Informant: patient Narrative Narrative: Patient presents to the emergency department complaint of a fever that started around 2:30 AM today. Patient states he started with some watery stools yesterday. He generally feels weak. 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 Patient was supposed have chemotherapy today. He was too weak to go to [place] for his chemotherapy. Patient complains of nausea and vomiting x2 as well. Patient has had chemo 18 days ago. He denies any abdominal pain. Fever at home was up to 101. Patient denies any cough or sore throat. He has had the COVID vaccine but not the booster. Patient denies any sick contacts. Patient had a unit of blood transfused last week and he was supposed to have another 1 unit today. Prior similar symptoms: No PFSH PFSH Medical History (Updated 06/12/21 @ 11:[address] 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 Bilateral carotid artery stenosis CVA (cerebral vascular accident) Essential (primary) hypertension Hyperlipidemia Ischemic cardiomyopathy Myelodysplasia (myelodysplastic syndrome) Old inferior wall myocardial infarction Pancytopenia Rheumatoid arthritis Septic arthritis of knee, left Home Medications nitroglycerin 0.4 mg sublingual tablet 0.4 mg SUBLINGUAL Q5M PRN 05/12/17 [History Last Taken Unknown] rosuvastatin 10 mg tablet 10 mg PO DAILY #90 tab 09/24/20 [Rx Last Taken Unknown] carvedilol 6.25 mg tablet 6.25 mg PO BID #180 tab 02/10/21 [Rx Last Taken Unknown] Cepacol Sore Throat (ebony-men) 1 ceci MUCOUS MEMBRANE Q2H PRN PRN #0 ea 04/17/21 [Rx Last Taken Unknown] Docusate Plus 100 mg PO/SL BID 05/04/21 [History Last Taken Unknown] acyclovir 800 mg PO BID 05/04/21 [History Last Taken Unknown] allopurinol 300 mg PO DAILY 05/04/21 [History Last Taken Unknown] levofloxacin 500 mg PO DAILY 05/04/21 [History Last Taken Unknown] lisinopril 10 mg PO QHS 05/04/21 [History Last Taken Unknown] sennosides 17.2 mg PO/SL BID 05/04/21 [History Last Taken Unknown] ranolazine 500 mg tablet,extended release,12 hr 500 mg PO DAILY #90 tab 05/05/21 [Rx Last Taken Unknown] magnesium 200 mg PO DAILY #30 tab 05/06/21 [Rx Last Taken Unknown] metformin 500 mg PO BID #60 tab 05/06/21 [Rx Last Taken Unknown] oxycodone 5 mg PO Q4H PRN PRN 7 Days #15 tab 05/06/21 [Rx Last Taken Unknown] Allergy/AdvReac Type Severity Reaction Status Date / Time No Known Allergies Allergy Verified 06/12/21 09:24 Family History (Updated 05/04/21 @ 16:15 by Lis Cabezas SAFETY ADVISOR, SAFETY ADVISOR-C) Father CAD (coronary artery disease) Diabetes Mother , related to sepsis from diverticulitis Arthritis Surgical History H/O cervical spine surgery (03/2019) H/O coronary artery bypass surgery (05/22/03) History of bone marrow biopsy History of coronary artery stent placement (04/14/16) History of left knee surgery (08/2018) History of shoulder surgery Social History Smoking Status: Former smoker alcohol intake: never substance use type: does not use caffeine: Yes Type: coffee Number of servings: 2 what type of physical activity do you participate in: walking and bicycling frequency: daily duration: 60-90 minutes/day seatbelt use: always do you feel safe at home: Yes ROS ROS ED Constitutional Constitutional ED: Reports systems reviewed and no addt'l complaints, except as documented and fever(s); Denies body ache(s), change in weight or chills Eyes Eyes: Denies acute decrease in peripheral vision, change in vision, double vision or loss of vision ENT ENT ED: Reports none; Denies ear pain, lip swelling, loss taste/smell, neck pain, otalgia or sore throat Cardiovascular Cardiovascular: Reports none; Denies abdominal pain, chest pain with activity, leg edema, lightheadedness, palpitations, rapid heart rate or syncope Respiratory/Chest Respiratory/Chest: Reports none; Denies change in mental status, dry cough, dyspnea, hemoptysis, shortness of breath at rest or shortness of breath with exertion Gastrointestinal Gastrointestinal: Reports none, diarrhea, nausea and vomiting; Denies abdominal pain, change in stool character, hematemesis, hematochezia, melena or rectal bleeding Genitourinary Genitourinary ED: Reports none; Denies abdominal discomfort, anuria, dysuria, genital pain or polyuria Musculoskeletal Musculoskeletal: Reports none; Denies arthralgias, back pain, difficulty walking, extremity pain, muscle weakness or myalgias Integumentary Reports none; Denies abscess or rash Neurologic Neurologic: Reports none; Denies abnormal gait, confusion, focal weakness, frequent falls, headache(s), loss of vision, numbness, paresthesias, radicular pain, vertigo or weakness Psychiatric Psychiatric: Reports systems reviewed and no addt'l complaints, except as documented and none; Denies behavioral changes, confusion, difficulty concentrating, hallucinations, suicidal ideation, tactile hallucinations or visual hallucinations Endocrine Endocrinology: Denies none, cold intolerance, excessive sweating, fatigue or heat intolerance Hematologic/Lymphatic Hematologic/Lymphatic: Reports none; Denies anemia, easy bleeding or easy bruising Allergic/Immunologic Allergic/Immunologic ED: Denies as per HPI, none, lip swelling, mouth swelling, throat swelling, tongue swelling or hives EXAM Physical Exam Const Vital Signs: 06/12/21 09:22 06/12/21 10:11 06/12/21 10:12 Temperature 98.6 F 98.6 F Temperature Source Temporal Temporal Pulse Rate 104 H 104 H Respiratory Rate 18 15 Respiratory Effort Normal Non-Labored Respiratory Pattern Normal Blood Pressure 136/73 H 136/73 H Blood Pressure Mean 94 94 Pulse Ox 100 97 Oxygen Delivery Method Room Air Room Air Positive well nourished and well developed General Appearance ED: well developed and NAD HEENT Reports TM's clear and moist mucous membranes normocephalic and atraumatic; Negative for trauma or tenderness Tympanic Membrane ED: Yes TM's clear Eyes PERRL and EOMs intact bilaterally General Eye ED: Negative for pale conjunctiva or scleral icterus Neck no lymphadenopathy, supple and no JVD General: Negative for tenderness Chest Wall inspection of chest normal and palpation of chest normal Chest: Negative for tenderness Resp normal respiratory effort and clear to auscultation bilaterally Effort and Inspection: Negative for respiratory distress or pain with movement Auscultation: Negative for rhonchi, wheezes or diminished lung sounds Cardio regular rate, regular rhythm, S1 normal heart sound, S2 normal heart sound and no murmurs Peripheral Pulses: pulses 2+ throughout GI normal to inspection, nondistended, normoactive bowel sounds, soft to palpation, non-tender, non-distended and no masses Back/Spine no CVA tenderness and no thoracic nor lumbar tenderness Extremity normal to inspection General Extremety ED: Negative for edema General Extremity: Negative for edema Neuro oriented x3, CN's II-XII intact bilaterally, no sensory deficits noted and gait normal Sensorium / Orientation: awake, alert, oriented to person, oriented to place and oriented to time Motor Exam: strength 5/5 throughout and strength abnormal Psych mental status grossly normal Skin no rashes or lesions noted and no wounds MDM MDM MDM Narrative Medical decision making narrative: IV line established on arrival. Blood cultures ordered. Patient was started empirically on Zosyn. Lab work-up significant for an absolute neutrophil count of 0. His lactate was 2.5. Urinalysis was unremarkable. Chest x-ray unremarkable. Case will be discussed with hospitalist evaluate patient for admission. Source of fever unclear although he has had some diarrhea as well as some nausea and vomiting therefore in the differential would be a viral gastroenteritis versus occult bacteremia. Lab Data Attestation: I reviewed the patient's lab results. Labs: Laboratory Results - last 24 hr 06/12/21 06/12/21 06/12/21 09:36 09:36 09:36 WBC 0.4 L* RBC 2.81 L Hgb 8.4 L Hct 24.5 L MCV 87.2 MCH 29.9 MCHC 34.3 RDW Std Deviation 41.3 RDW Coeff of Jamie 13.6 Plt Count 146 L MPV 10.0 Immature Gran % (Auto) 0.000 Neut % (Auto) 4.7 L Lymph % (Auto) 93.0 H [place] % (Auto) 2.3 Eos % (Auto) 0.0 Baso % (Auto) 0.0 Absolute Neuts (auto) 0.0 L Absolute Lymphs (auto) 0.40 L Nucleated RBC % 0 Differential Comment COMMENT Diff Path Review May foll Reactive Lymphocytes RARE Sodium 133 L Potassium 3.3 L Chloride 101 Carbon Dioxide 26.0 Anion Gap 6 BUN 11 Creatinine 0.75 Estim Creat Clear Calc 93.03 Est GFR (MDRD) Af Amer 134 Est GFR (MDRD) Non-Af 111 BUN/Creatinine Ratio 14.6 Glucose 206 H Lactic Acid 2.5 H* Calcium 8.5 Urine Color Urine Clarity Urine pH Ur Specific [place] Urine Protein Urine Glucose (UA) Urine Ketones Urine Occult Blood Urine Nitrite Urine Bilirubin Urine Urobilinogen Ur Leukocyte Esterase Urine RBC Urine WBC Ur Squamous Epith Cells Urine Bacteria Urine Mucus 06/12/21 11:26 WBC RBC Hgb Hct MCV MCH MCHC RDW Std Deviation RDW Coeff of Jamie Plt Count MPV Immature Gran % (Auto) Neut % (Auto) Lymph % (Auto) [place] % (Auto) Eos % (Auto) Baso % (Auto) Absolute Neuts (auto) Absolute Lymphs (auto) Nucleated RBC % Differential Comment Diff Path Review Reactive Lymphocytes Sodium Potassium Chloride Carbon Dioxide Anion Gap BUN Creatinine Estim Creat Clear Calc Est GFR (MDRD) Af Amer Est GFR (MDRD) Non-Af BUN/Creatinine Ratio Glucose Lactic Acid Calcium Urine Color Yellow Urine Clarity Sl. Cloudy Urine pH 5.0 Ur Specific [place] 1.020 Urine Protein 30 H Urine Glucose (UA) 50 H Urine Ketones 50 H Urine Occult Blood Negative Urine Nitrite Negative Urine Bilirubin Negative Urine Urobilinogen 1 H Ur Leukocyte Esterase Negative Urine RBC 0 SEEN Urine WBC 0-5 SEEN Ur Squamous Epith Cells 0-5 SEEN Urine Bacteria 1+ Urine Mucus 1+ Radiography Diagnostic Testing: Clinical Impression(s) from Imaging Studies Chest X-Ray 06/12/21 10:09 IMPRESSION: Status post CABG. No acute abnormality is seen. Electronically Signed: Mateusz Emmanuel MD at 10:34 EDT , 1 view chest x-ray obtained interpreted by myself no acute disease process. Radiology in agreement. Discharge Plan Triage Chief Complaint: Fever ED Provider: Antonia Pete Dx/Rx/DC Orders Clinical Impression: Fever and neutropenia, Acidosis, lactic, Viral gastroenteritis Prescriptions: No Action nitroglycerin [Nitrostat] 0.4 mg tablet, sublingual 0.4 mg SUBLINGUAL Q5M PRN (Reason: Angina) RF: 0 Cepacol Sore Throat (ebony-men) 15-3.6 mg Lozenge 1 ceci mucous membrane Q2H PRN PRN (Reason: SORE THROAT) Qty: 0 RF: 0 acyclovir 800 mg tablet 800 mg PO BID RF: 0 allopurinol 300 mg tablet 300 mg PO DAILY RF: 0 levofloxacin 500 mg tablet 500 mg PO DAILY RF: 0 lisinopril 5 mg tablet 10 mg PO QHS RF: 0 Docusate Plus 100 mg PO/SL BID RF: 0 sennosides 17.2 mg PO/SL BID RF: 0 oxycodone 5 mg Tablet 5 mg PO Q4H PRN PRN (Reason: Pain Score 4-10) 7 Days Qty: 15 RF: 0 metformin 500 mg tablet 500 mg PO BID Qty: 60 RF: 0 magnesium 200 mg tablet 200 mg PO DAILY Qty: 30 RF: 0 rosuvastatin [Crestor] 10 mg tablet 10 mg PO DAILY Qty: 90 RF: 3 carvedilol 6.25 mg tablet 6.25 mg PO BID Qty: 180 RF: 3 ranolazine 500 mg tablet extended release 12 hr 500 mg PO DAILY Qty: 90 RF: 3 Primary Care Provider: Jose Luis Leija Referrals: Jose Luis Leija MD [Primary Care Provider] - Disposition Disposition: Acute Care Hospital [facility]
[2021-06-12 10:11] LABS: Differential Indicated SCAN CRITERIA MET; White Blood Count 0.4 K/mm3 (4.4-11.0)
[2021-06-12 10:21] LABS: Reactive Lymphocyte RARE
[2021-06-12 10:23] LABS: Lactic Acid 2.5 mmol/L (0.4-1.9)
[2021-06-12] MEDS: 0.9% Normal Saline 1,000 ML 50 ML IV (10:26)
[2021-06-12] MEDS: Morphine 4 MG/ML Syringe IV (11:11)
[2021-06-12] MEDS: Ondansetron 4 MG/2 ML Vial IV (11:11)
[2021-06-12 11:29] LABS: Red Blood Cells-Urine 0 SEEN /hpf (0-5)
[2021-06-12 11:30] LABS: Color, Urine Yellow (Yellow); Glucose, Dipstick 50 mg/dl (Normal); Ketone-Dipstick 50 mg/dl (Negative); Leukocyte Esterase-Dipstick Negative /ul (Negative); Nitrite-Dipstick Negative (Negative); Occult Blood-Urine Negative /ul (Negative); Protein-Dipstick 30 mg/dl (Negative); Urine Bilirubin Dipstick Negative (Negative); Urine Clarity Sl. Cloudy (Clear); Urine Urobilinogen 1 mg/dl (Normal)
[2021-06-12 11:40] LABS: Bacteria 1+ /hpf (None Seen); Mucous, Urine 1+ /hpf (<or=2+); Squamous Epithelial Cells - UA 0-5 SEEN /hpf (0-5); White Blood Cells 0-5 SEEN /hpf (0-5)
--- NOTE | 2021-06-12 11:51 | HP.PCM.HOS_ITS ---
HPI - General General Date of Admission: 06/12/21 HPI Narrative JOSE MUJICA, is a 66 M with an extensive PMH as outlined who presents via the ED on 06/12/2021 with a complaint of fever and general feeling of unwellness. HE is currently being treated for AML and MDS. He last had chemo in [place] ~ 2 weeks ago. he started having a fever in the early hours of the morning of admission, and had some watery stools also the day before he came in. He denied any nausea, vomiting, chest pain, palpitations, dizziness. He denied any cough or sore throat. Patient had been vaccinated against covid but hadnt yet got the booster. Vitals in the ED were blood pressure 136/73, pulse rate of 104 respiratory rate of 18. Temperature was 98.6 Fahrenheit and he was saturating 100% on room air. CBC showed wbc of 0.4, with hb of 8.4, platelets of 146. BMP showed sodium of 133 and potassium of 3.3. lactic acid was 2.5. Urinalyis showed 1+ bacteria but no leucocyte esterase. CXR showed no acute cardiopulmonary abnormalities. He is being admitted to be managed for febrile neutropenia. [facility] Medical History (Updated 06/12/21 @ 12:[address] 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 Bilateral carotid artery stenosis CVA (cerebral vascular accident) Essential (primary) hypertension Hyperlipidemia Ischemic cardiomyopathy Myelodysplasia (myelodysplastic syndrome) Old inferior wall myocardial infarction Pancytopenia Rheumatoid arthritis Septic arthritis of knee, left Home Medications nitroglycerin 0.4 mg sublingual tablet 0.4 mg SUBLINGUAL Q5M PRN 05/12/17 [History Last Taken Unknown] carvedilol 6.25 mg tablet 6.25 mg PO BID #180 tab 02/10/21 [Rx Last Taken 06/11/21 22:00] Cepacol Sore Throat (ebony-men) 1 ceci MUCOUS MEMBRANE Q2H PRN PRN #0 ea 04/17/21 [Rx Last Taken Unknown] Docusate Plus 100 mg PO/SL BID 05/04/21 [History Last Taken 06/11/21 08:00] acyclovir 800 mg PO BID 05/04/21 [History Last Taken 06/11/21 09:00] allopurinol 300 mg PO DAILY 05/04/21 [History Last Taken 06/11/21 08:00] levofloxacin 500 mg PO DAILY 05/04/21 [History Last Taken 06/11/21] sennosides 17.2 mg PO/SL BID 05/04/21 [History Last Taken 06/11/21 08:00] ranolazine 500 mg tablet,extended release,12 hr 500 mg PO DAILY #90 tab 05/05/21 [Rx Last Taken 06/12/21 08:00] metformin 500 mg PO BID 06/12/21 [History Last Taken 06/11/21 22:00] oxycodone 5 mg PO Q8H PRN PRN 06/12/21 [History Last Taken 06/11/21 08:00] rosuvastatin [Crestor] 10 mg PO DAILY 06/12/21 [History Last Taken Unknown] Allergy/AdvReac Type Severity Reaction Status Date / Time No Known Allergies Allergy Verified 06/12/21 09:24 Family History (Updated 05/04/21 @ 16:15 by Lis Cabezas DROP WIRER, DROP WIRER-C) Father CAD (coronary artery disease) Diabetes Mother , related to sepsis from diverticulitis Arthritis Surgical History H/O cervical spine surgery (03/2019) H/O coronary artery bypass surgery (05/22/03) History of bone marrow biopsy History of coronary artery stent placement (04/14/16) History of left knee surgery (08/2018) History of shoulder surgery Social History Smoking Status: Former smoker alcohol intake: never substance use type: does not use caffeine: Yes Type: coffee Number of servings: 2 what type of physical activity do you participate in: walking and bicycling frequency: daily duration: 60-90 minutes/day seatbelt use: always do you feel safe at home: Yes ROS Constitutional Constitutional: Reports chills, fatigue, fever(s), malaise and weakness; Denies anorexia, change in weight or night sweats Eyes Eyes: Denies change in vision ENT HEENT: Denies ear pain or headache(s) Cardiovascular Cardiovascular: Denies chest pain, dyspnea on exertion, edema, lightheadedness, orthopnea, palpitations or paroxysmal nocturnal dyspnea Respiratory/Chest Respiratory/Chest: Denies cough, dyspnea or shortness of breath at rest Gastrointestinal Gastrointestinal: Reports diarrhea; Denies abdominal pain, constipation, hematemesis, nausea or vomiting Genitourinary Genitourinary: Denies dysuria, nocturia or urinary frequency Musculoskeletal Musculoskeletal: Denies back pain or joint swelling Neurologic Neurologic: Denies confusion, dizziness, focal weakness, headache(s) or seizures Psychiatric Psychiatric: Denies anxiety Hematologic/Lymphatic Hematologic/Lymphatic: Denies anemia Vital Signs Vital Signs Vital Signs: 06/12/21 09:22 06/12/21 10:11 06/12/21 10:12 Temperature 98.6 F 98.6 F Temperature Source Temporal Temporal Pulse Rate 104 H 104 H Respiratory Rate 18 15 Respiratory Effort Normal Non-Labored Respiratory Pattern Normal Blood Pressure 136/73 H 136/73 H Blood Pressure Mean 94 94 Pulse Ox 100 97 Oxygen Delivery Method Room Air Room Air Weight Weight: 193 lb Body Mass Index (BMI) 30.2 Physical Exam Const alert and oriented x3 General Appearance: cooperative Orientation / Consciousness: lethargic HEENT normocephalic, head/scalp atraumatic and hearing grossly normal bilaterally HEENT Narrative: dry oral mucosa Eyes PERRL, EOMs intact bilaterally and conjunctivae normal Neck no lymphadenopathy, supple and no JVD Resp normal respiratory effort, no retractions, no use of accessory muscles and clear to auscultation bilaterally Cardio regular rate, regular rhythm, S1 normal heart sound, S2 normal heart sound and no murmurs GI normal to inspection, nondistended, normoactive bowel sounds, soft to palpation, non-tender and non-distended Extremity normal to inspection, full ROM and no clubbing, cyanosis or edema Peripheral Pulses: Yes pulses 2+ throughout Skin no rashes or lesions noted Neuro oriented x3, CN's II-XII intact bilaterally and moves all extremities Sensorium / Orientation: awake and alert Psych affect normal Results Lab / Micro Data Result Diagrams: 06/12/21 09:36 06/12/21 12:25 Labs: Laboratory Results - last 24 hr 06/12/21 09:36: Lactic Acid 2.5 H* 06/12/21 09:36: WBC 0.4 L*, RBC 2.81 L, Hgb 8.4 L, Hct 24.5 L, MCV 87.2, MCH 29.9, MCHC 34.3, RDW Std Deviation 41.3, RDW Coeff of Jamie 13.6, Plt Count 146 L, MPV 10.0, Immature Gran % (Auto) 0.000, Neut % (Auto) 4.7 L, Lymph % (Auto) 93.0 H, [place] % (Auto) 2.3, Eos % (Auto) 0.0, Baso % (Auto) 0.0, Absolute Neuts (auto) 0.0 L, Absolute Lymphs (auto) 0.40 L, Nucleated RBC % 0, Differential Comment COMMENT, Diff Path Review July foll, Reactive Lymphocytes RARE 06/12/21 09:36: Sodium 133 L, Potassium 3.3 L, Chloride 101, Carbon Dioxide 26.0, Anion Gap 6, BUN 11, Creatinine 0.75, Estim Creat Clear Calc 93.03, Est GFR (MDRD) Af Amer 134, Est GFR (MDRD) Non-Af 111, BUN/Creatinine Ratio 14.6, Glucose 206 H, Calcium 8.5 06/12/21 11:26: Urine Color Yellow, Urine Clarity Sl. Cloudy, Urine pH 5.0, Ur Specific [place] 1.020, Urine Protein 30 H, Urine Glucose (UA) 50 H, Urine Ketones 50 H, Urine Occult Blood Negative, Urine Nitrite Negative, Urine Bilirubin Negative, Urine Urobilinogen 1 H, Ur Leukocyte Esterase Negative, Urine RBC 0 SEEN, Urine WBC 0-5 SEEN, Ur Squamous Epith Cells 0-5 SEEN, Urine Bacteria 1+, Urine Mucus 1+ Radiology Impression Chest X-Ray 06/12/21 10:09 IMPRESSION: Status post CABG. No acute abnormality is seen. Electronically Signed: Mateusz Emmanuel MD at 10:34 EDT , Assessment & Plan Assessment/Plan (1) Pancytopenia: (2) Febrile neutropenia: PLAN: #Febrile neutropenia * has a history of AML and MDS * wbc is 0.4 with absolute neutrophil count of 0 * Get blood and urine cultures * [facility] Hydrate gently with IV fluids. Lactic acid is 2.5. * Start on IV Zosyn * discussed with DR Martell; no need for granix now as he is still midcycle for his chemotherapy. If he develops a worsening fever here, then will consider granix. * on Decitabine which he gets in [place]- [facility] * #Lactic acidosis: Likely due to dehydration and febrile neutropenia: Hydrate with fluids and trend #Pancytopenia * Due to acute leukemia myelodysplastic syndrome likely exacerbated by recent chemotherapy * WBC is 0.4 with hemoglobin of 8.4 and platelets of 146. * Will monitor for now * #History of AML and myelodysplastic syndrome * As stated above, goes for chemotherapy in [facility]. * to follow up with oncology in [place] once he is stable #Hypokalemia: Potassium is 3.3. Will replace and trend. #History of CAD s/p CABG: On carvedilol, rosuvastatin #Hypertension: On lisinopril and carvedilol DVT prophylaxis: lovenox Code status; full code * Patient counseled extensively about different types of CODE STATUS including full code, DNR CCA and DNR CCA. Patient elects to be full code. Total spud-pt-xrov time 17 minutes. Charges/Coding Visit Charges Inpatient E&M: 64742 Init Hosp L3 Procedures Hospitalists Procedures: 57828 Advncd Care Plan 30 Min
[2021-06-12 12:59] LABS: ALB/GLOB Ratio 0.7 RATIO (0.9-2.4); AST(SGOT) 22 U/L (15-37); Alanine Aminotransfer ALT/SGPT 21 U/L (16-61); Albumin, Serum 2.7 g/dL (3.2-5.0); Alkaline Phosphatase 82 U/L (45-117); Anion Gap 5 (5-15); BUN 10 mg/dL (7-18); BUN/Creat Ratio 18.1 RATIO (10-20); Calcium,Total 8.1 mg/dL (8.5-10.1); Chloride 101 mmol/L (98-107); Creatinine, Serum 0.55 mg/dL (0.70-1.30); EST Glomerular Filtration Rate 159 mL/min (>60); Est Glom Filt Rate - Afr Amer 192 mL/min (>60); Estimated Creatinine Clearance 126.86 ml/min; Globulin 4.1 g/dL (2.2-4.2); Glucose 160 mg/dL (74-106); Potassium 3.3 mmol/L (3.5-5.1); Protein, Total 6.8 g/dL (6.4-8.2); Sodium Level 133 mmol/L (136-145)
[2021-06-12 13:03] LABS: Lactic Acid 1.3 mmol/L (0.4-1.9)
[2021-06-12] MEDS: 0.9% Normal Saline 1,000 ML 10 ML IV (13:27)
[2021-06-12 13:40] LABS: Bedside Glucose 149 mg/dL (74-106)
[2021-06-12] MEDS: Acetaminophen 325 MG Tablet 650 MG PO (13:43)
[2021-06-12] MEDS: proMETHazine 25 MG/ML Syringe 12.5 MG IM (13:43)
[2021-06-12] MEDS: oxyCODONE 5 MG Tablet PO (13:44)
[2021-06-12 13:48] LABS: Reflex Lactate? Y
[2021-06-12 16:31] LABS: Bedside Glucose 168 mg/dL (74-106)
[2021-06-12] MEDS: Insulin Lispro 100 UNIT/ML INSULN.PEN SC ×2 (16:38→21:58)
[2021-06-12 20:35] LABS: Magnesium 1.6 mg/dL (1.6-2.6)
[2021-06-12] MEDS: Potassium Chloride Oral Tablet 20 MEQ 40 MEQ PO (21:56)
[2021-06-12 22:05] LABS: Bedside Glucose 153 mg/dL (74-106)
[2021-06-12] MEDS: Morphine 2 MG/ML Syringe IV (23:40)
[2021-06-13] VITALS (13 sets, daily range): BP systolic 102–143; BP diastolic 60–84; PULSE 77–108; RESP 18–36; TEMP 37–39.5; O2SAT 94–99
--- NOTE | 2021-06-13 00:13 | PCM.HOSP.N ---
Hospitalist Note RN notes blood cx with GP cocci specifically in chains, NOT clusters. Patient is already on zosyn. Given currently findings consistent with streptococcus will continue with his current abx regimen already in place.
[2021-06-13] MEDS: Insulin Lispro 100 UNIT/ML INSULN.PEN SC ×4 (06:22→22:40)
[2021-06-13] MEDS: Enoxaparin 40 MG/0.4 ML Syringe SC (06:27)
[2021-06-13] MEDS: oxyCODONE 5 MG Tablet PO ×3 (06:28→20:13)
[2021-06-13 06:30] LABS: Bedside Glucose 158 mg/dL (74-106)
--- NOTE | 2021-06-13 06:31 | NURSING ---
pt noted to void 950 ml after bladder scan completed.
[2021-06-13 06:40] LABS: Absolute Lymphocyte Count 0.28 X10^3/uL (0.83-4.51); Lymphocyte # 0.28 X10^3/ul (0.83-4.51); Lymphocyte % 82.4 % (19-41); Mean Corpuscular Hgb 30.3 pg (27.0-32.0); Mean Corpuscular Volume 86.6 fL (80-94); Monocyte# 0.03 X10^3/uL; Monocyte% 8.8 % (0-10); NRBC Flagged by Analyzer 0 % (0-5); Neutrophil # 0.03 X10^3/uL (2.7-7.7); Neutrophil % 8.8 % (47-70); POSITIVE COUNT YES; POSITIVE DIFFERENTIAL YES; POSITIVE MORPHOLOGY YES; Platelet Count 132 K/mm3 (150-450); RBC Distribution Width CV 13.7 % (11.6-14.6); RBC Distribution Width SD 41.6 fl (35.1-43.9); Red Blood Count 2.31 M/mm3 (4.6-6.2); White Blood Count 0.3 K/mm3 (4.4-11.0)
[2021-06-13 06:45] LABS: Differential Indicated SCAN CRITERIA MET
[2021-06-13 06:58] LABS: Atypical Lymphocyte 1+ %; Differential Comment SCANNED
[2021-06-13 07:08] LABS: ALB/GLOB Ratio 0.6 RATIO (0.9-2.4); AST(SGOT) 18 U/L (15-37); Alanine Aminotransfer ALT/SGPT 18 U/L (16-61); Albumin, Serum 2.4 g/dL (3.2-5.0); Alkaline Phosphatase 70 U/L (45-117); Anion Gap 8 (5-15); BUN 10 mg/dL (7-18); BUN/Creat Ratio 19.6 RATIO (10-20); Calcium,Total 8.2 mg/dL (8.5-10.1); Chloride 102 mmol/L (98-107); Creatinine, Serum 0.51 mg/dL (0.70-1.30); EST Glomerular Filtration Rate 174 mL/min (>60); Est Glom Filt Rate - Afr Amer 211 mL/min (>60); Estimated Creatinine Clearance 141.57 ml/min; Globulin 4.2 g/dL (2.2-4.2); Glucose 149 mg/dL (74-106); Potassium 3.5 mmol/L (3.5-5.1); Protein, Total 6.6 g/dL (6.4-8.2); Sodium Level 133 mmol/L (136-145)
--- NOTE | 2021-06-13 07:42 | ECHOD_ITS ---
Reason For Study: EMBOLI Procedure This was a 2D Doppler, Color Flow transthoracic echocardiogram. Exam performed portable in patient room. Left Ventricle Normal left ventricle. The estimated ejection fraction is 55-60 %. Right Ventricle Normal right ventricle. Normal systolic function. Atria Normal left atrium. Normal right atrium. Mitral Valve The mitral valve is structurally normal. No prolapse or stenosis seen. Trivial eccentric mitral valve insufficiency. Tricuspid Valve Normal tricuspid valve. Aortic Valve Normal aortic valve. Pulmonic Valve The pulmonic valve is not well visualized. Great Vessels Normal aortic root. Pericardium/Pleural No pericardial effusion. MMode/2D Measurements & Calculations LVIDd: 4.9 cm IVSd: 1.2 cm Ao root diam: 3.5 cm LVIDs: 3.5 cm LVPWd: 1.1 cm RVDd: 4.0 cm FS: 27.9 % LAV(MOD-sp4): 25.9 ml LVAd ap4: 31.4 cm2 LVAd ap2: 41.3 cm2 LVLd ap4: 9.0 cm LVLd ap2: 9.5 cm EDV(MOD-sp4): 88.8 ml EDV(MOD-sp2): 149.7 ml EDV(sp4-el): 92.4 ml EDV(sp2-el): 151.6 ml LVAs ap4: 18.9 cm2 LVAs ap2: 23.9 cm2 LVLs ap4: 7.6 cm LVLs ap2: 7.8 cm ESV(MOD-sp4): 37.8 ml ESV(MOD-sp2): 66.5 ml ESV(sp4-el): 40.1 ml ESV(sp2-el): 62.1 ml EF(MOD-sp4): 57.4 % EF(MOD-sp2): 55.6 % EF(sp4-el): 56.6 % SV(MOD-sp4): 51.0 ml SV(MOD-sp2): 83.3 ml SV(sp4-el): 52.3 ml LA dimension(2D): 4.6 cm LA A4 area: 12.7 cm2 RA A4 area: 20.3 cm2 Doppler Measurements & Calculations MV E max harman: 88.3 cm/sec Lat Peak E' Harman: 9.7 cm/sec Med Peak E' Harman: 6.5 cm/sec MV A max harman: 111.7 cm/sec E/E' lat: 9.1 E/E' med: 13.7 MV E/A: 0.79 Ao V2 max: 135.8 cm/sec LV V1 max: 101.5 cm/sec Ao max P.4 mmHg LV V1 max P.1 mmHg ECHO/Echo Complete Interpretation Summary The estimated ejection fraction is 55-60 %. Grade #1 Diastolic function No significant changes from prior echo Ordering Physician: Rosina Nickerson Referring Physician: MD Heladio Jose Luis Performed By: Nicky Nur RCS
[2021-06-13] MEDS: Acetaminophen 325 MG Tablet 650 MG PO ×3 (08:32→20:13)
--- NOTE | 2021-06-13 11:05 | PN.HOSP_ITS ---
Subjective Subjective Patient seen and examined. Objective Data Objective Data Vital Signs: Vital Signs Temp Pulse Resp BP Pulse Ox 101.1 F H 98 18 102/75 97 06/13/21 08:19 06/13/21 08:19 06/13/21 08:19 06/13/21 08:19 06/13/21 08:19 Oxygen Delivery Method Room Air Weight: 184 lb 11.958 oz Body Mass Index (BMI) 28.0 Intake & Output: Intake and Output for Last 24 Hours 06/11/21 06/12/21 06/13/21 23:59 23:59 23:59 Intake Total 438.0 / 438.0 50 / 50 Output Total 0 / 0 950 / 950 Balance 438.0 / 438.0 -900 / -900 Medical Nutrition Assessment Dietitian: Malnutrition Criteria Met Start: 06/12/21 17:35 Freq: Status: Active Protocol: Document 06/12/21 17:35 RMA (Rec: 06/12/21 17:35 RMA [id number]) Nutrition Malnutrition Evidence of Malnutrition Exists Yes Malnutrition (severe): Chronic Evidenced By Suboptimal Energy Intake ( Severe),Weight Loss (Severe) Clinical Problem Chronic Disease or Condition Related Malnutrition Etiology Severe protein/calorie malnutrition in the context of chronic disease related to inadequate oral intake/chemo Signs/Symptoms as evidenced by ~20% wt loss x past 6-12 months and PO meeting less than 50% estimated nutrition needs Status Active Problem Recommendation Dietitian Recommendations/Changes Will adjust diet to carbohydrate-controlled with vanilla milkshake at lunch time per pt preference; no raw fruits/vegetables as per patient/family request. Will add 120 ml glucerna shake TID w/ medpass. Adjust ONS as needed to optimize oral intake and prevent further wt loss. Lab / Micro Data Result Diagrams: 06/13/21 05:45 06/13/21 05:45 Labs: Laboratory Results - last 24 hr 06/12/21 11:26: Urine Color Yellow, Urine Clarity Sl. Cloudy, Urine pH 5.0, Ur Specific [place] 1.020, Urine Protein 30 H, Urine Glucose (UA) 50 H, Urine Ketones 50 H, Urine Occult Blood Negative, Urine Nitrite Negative, Urine Bilirubin Negative, Urine Urobilinogen 1 H, Ur Leukocyte Esterase Negative, Urine RBC 0 SEEN, Urine WBC 0-5 SEEN, Ur Squamous Epith Cells 0-5 SEEN, Urine Bacteria 1+, Urine Mucus 1+ 06/12/21 12:25: Sodium 133 L, Potassium 3.3 L, Chloride 101, Carbon Dioxide 27.0, Anion Gap 5, BUN 10, Creatinine 0.55 L, Estim Creat Clear Calc 126.86, Est GFR (MDRD) Af Amer 192, Est GFR (MDRD) Non-Af 159, BUN/Creatinine Ratio 18.1, Glucose 160 H, Calcium 8.1 L, Total Bilirubin 1.60 H, AST 22, ALT 21, Alkaline Phosphatase 82, Total Protein 6.8, Albumin 2.7 L, Globulin 4.1, Albumin/Globulin Ratio 0.7 L 06/12/21 12:25: Lactic Acid 1.3 06/12/21 12:25: Magnesium 1.6 06/12/21 13:37: POC Glucose 149 H 06/12/21 16:22: POC Glucose 168 H 06/12/21 21:55: POC Glucose 153 H 06/13/21 05:45: WBC 0.3 L*, RBC 2.31 L, Hgb 7.0 L, Hct 20.0 L, MCV 86.6, MCH 30.3, MCHC 35.0, RDW Std Deviation 41.6, RDW Coeff of Jamie 13.7, Plt Count 132 L, MPV 10.0, Immature Gran % (Auto) 0.000, Neut % (Auto) 8.8 L, Lymph % (Auto) 82.4 H, [place] % (Auto) 8.8, Eos % (Auto) 0.0, Baso % (Auto) 0.0, Absolute Neuts (auto) 0.0 L, Absolute Lymphs (auto) 0.28 L, Nucleated RBC % 0, Differential Comment SCANNED, Diff Path Review May foll, Atypical Lymphocytes 1+ 06/13/21 05:45: Sodium 133 L, Potassium 3.5, Chloride 102, Carbon Dioxide 23.0, Anion Gap 8, BUN 10, Creatinine 0.51 L, Estim Creat Clear Calc 141.57, Est GFR (MDRD) Af Amer 211, Est GFR (MDRD) Non-Af 174, BUN/Creatinine Ratio 19.6, Glucose 149 H, Calcium 8.2 L, Total Bilirubin 1.50 H, AST 18, ALT 18, Alkaline Phosphatase 70, Total Protein 6.6, Albumin 2.4 L, Globulin 4.2, Albumin/Globulin Ratio 0.6 L 06/13/21 06:20: POC Glucose 158 H Micro: Microbiology 06/12/21 10:40 Blood Culture (Wb) - Anticubital Right Blood Culture - Preli minary 06/12/21 09:36 Blood Culture (Wb) - Anticubital Left Bacteria Detection (PCR) - Final Enterococcus faecalis 06/12/21 09:36 Blood Culture (Wb) - Anticubital Left Blood Culture - Preliminary 06/12/21 11:34 Nasal Secretion SARS-CoV-2 Antigen (Rapid) - Final Physical Exam Const alert and oriented x3 General Appearance: cooperative Orientation / Consciousness: lethargic Exam Limitations: no limitations HEENT normocephalic, head/scalp atraumatic and hearing grossly normal bilaterally Head and Scalp: normocephalic Eyes PERRL, EOMs intact bilaterally and conjunctivae normal Neck no lymphadenopathy, supple and no JVD Resp normal respiratory effort, no retractions, no use of accessory muscles and clear to auscultation bilaterally Cardio regular rate, regular rhythm, S1 normal heart sound, S2 normal heart sound and no murmurs GI normal to inspection, nondistended, normoactive bowel sounds, soft to palpation, non-tender and non-distended Extremity normal to inspection, full ROM and no clubbing, cyanosis or edema Peripheral Pulses: Yes pulses 2+ throughout Skin no rashes or lesions noted Neuro oriented x3, CN's II-XII intact bilaterally and moves all extremities Sensorium / Orientation: awake and alert Psych affect normal Assessment & Plan Assessment/Plan (1) Pancytopenia: (2) Febrile neutropenia: PLAN: #Febrile neutropenia * has a history of AML and MDS * wbc is 0.3 today. * blood cultures growing Enterococcus fecalis * on IV zosyn. IV vancomycin added on * 2D echo ordered and pending * repeat blood cultures ordered * ID consulted * * #Lactic acidosis:resolved #Pancytopenia * Due to acute leukemia myelodysplastic syndrome likely exacerbated by recent chemotherapy * WBC is 0.3 with hemoglobin of 7 today and platelets of 132 * Will monitor for now * repeat H&H and transfuse if Hb <7 * #History of AML and myelodysplastic syndrome * As stated above, goes for chemotherapy in [facility]. * to follow up with oncology in [place] once he is stable #Hypokalemia: resolved #History of CAD s/p CABG: On carvedilol, rosuvastatin #Hypertension: On lisinopril and carvedilol DVT prophylaxis: lovenox; monitor platelets and dc if platelets continue to drop Code status: full code * Charges/Coding Visit Charges Inpatient E&M: 62260 Subs Hosp L3
[2021-06-13 11:35] LABS: Bedside Glucose 178 mg/dL (74-106)
--- NOTE | 2021-06-13 11:58 | CASEMGMT ---
Addendum entered by Krista Snider 06/13/21 14:21: Per , pt will be discharged from [facility] on 06/30/21 and then start with [facility] at that time. Scar SIERRA CM Original Note: MARIELA MITTAL assessment: Face to Face with patient for initial transition planning/care coordination assessment. MARIELA MITTAL introduced self and role at [facility], pt voices understanding and consents to assessment. Pt is lying in bed in no distress on room air. Pt is A/Ox4 and answers all questions appropriately. Care providers, pharmacy, and demographics verified/updated. Presentation: Pt getting chemo, last dose 18 days [employer]-pt also received blood transfusion on wednesday-fever at home 101 Admitting dx: Febrile neutropenia PCP: [facility] Specialists: Elizabeth, cardio; Cosmo, rheum; Sarthak ortho; Jus, onc at [facility] Preferred Pharmacy: [facility] Insurance: [facility] MHS/MCR Prescription Benefit: [facility] MHS Living Will/HPOA: Pt has LW/HPOA and is aware that they are on file at [facility]. Pt's , Cristina Daley, is HPOA. LNOK: Cristina Daley, /HPOA Living Arrangements: Pt lives with on main level of 2 story home with 2 steps in and states no concerns at home. Pt is independent with ADL's. Transportation: Pt drives self or drives and states no transportation concerns. DME/HHC: Pt has the following DME: cane, walker, rollator, w/c, glucometer, and raised toilet seat. Pt states no need for any further DME. Pt states is [facility] with [facility] and [facility] order placed. Green sheet on chart. Pt states no hx of SNF in the past. Pt states no concerns with going home at time of discharge. Pt is on disability. Pt states does not smoke cigarettes or drink ETOH. Pt states no further concerns/needs. CM to follow for any further discharge planning/needs. Advised pt to ask for CM if any further questions/concerns/needs arise, voices understanding. Pt Goal: Home w/ [facility]ILY HHC Plan: Home w/EMILY HHC Scar SIERRA CM
[2021-06-13 12:03] LABS: Hematocrit 19.6 % (40-54); Hemoglobin 6.8 g/dL (13.0-16.5)
--- NOTE | 2021-06-13 13:09 | PCM.CONS.GEN ---
Assessment & Plan Assessment/Plan (1) Febrile neutropenia: PLAN: Neutropenic fever with enterococcal bacteremia. We will continue Zosyn for now and continue supportive care. Repeat blood cultures were drawn earlier today. I discussed this with the patient's family at the bedside. HPI Consult Data Date of Consult: 06/13/21 HPI Narrative HPI Narrative: JOSE MUJICA, is a 66 M who presents with acute fever and generalized weakness along with GI distress. Patient has multiple comorbidities including recent diagnosis of MDS/leukemia and is being treated at [facility] cancer mouth of [place], patient did receive systemic chemotherapy 18 days ago. More recently he fell earlier this week in his bathtub and then had a blood transfusion on Wednesday afternoon. Patient's been complaining of constipation through the week. Interestingly his admission blood cultures are growing Enterococcus faecalis. Currently on vancomycin plus Zosyn. Patient states that he did have a bowel movement recently. Denies any abdominal pain. No cardiopulmonary distress. [facility] Medical History (Updated 06/12/21 @ 12:[address] Rosina Nickerson MD) Acute myelogenous leukemia Atherosclerotic heart disease of [place] coronary artery without angina pectoris Bilateral carotid artery stenosis CVA (cerebral vascular accident) Essential (primary) hypertension Hyperlipidemia Ischemic cardiomyopathy Myelodysplasia (myelodysplastic syndrome) Old inferior wall myocardial infarction Pancytopenia Rheumatoid arthritis Septic arthritis of knee, left Home Medications nitroglycerin 0.4 mg sublingual tablet 0.4 mg SUBLINGUAL Q5M PRN 05/12/17 [History Last Taken Unknown] carvedilol 6.25 mg tablet 6.25 mg PO BID #180 tab 02/10/21 [Rx Last Taken 06/11/21 22:00] Cepacol Sore Throat (ebony-men) 1 ceci MUCOUS MEMBRANE Q2H PRN PRN #0 ea 04/17/21 [Rx Last Taken Unknown] Docusate Plus 100 mg PO/SL BID 05/04/21 [History Last Taken 06/11/21 08:00] acyclovir 800 mg PO BID 05/04/21 [History Last Taken 06/11/21 09:00] allopurinol 300 mg PO DAILY 05/04/21 [History Last Taken 06/11/21 08:00] levofloxacin 500 mg PO DAILY 05/04/21 [History Last Taken 06/11/21] sennosides 17.2 mg PO/SL BID 05/04/21 [History Last Taken 06/11/21 08:00] ranolazine 500 mg tablet,extended release,12 hr 500 mg PO DAILY #90 tab 05/05/21 [Rx Last Taken 06/12/21 08:00] metformin 500 mg PO BID 06/12/21 [History Last Taken 06/11/21 22:00] oxycodone 5 mg PO Q8H PRN PRN 06/12/21 [History Last Taken 06/11/21 08:00] rosuvastatin [Crestor] 10 mg PO DAILY 06/12/21 [History Last Taken Unknown] Allergy/AdvReac Type Severity Reaction Status Date / Time No Known Allergies Allergy Verified 06/12/21 09:24 Family History (Updated 05/04/21 @ 16:15 by Lis Cabezas CIVIL ENGINEERING ASSISTANT, CIVIL ENGINEERING ASSISTANT-C) Father CAD (coronary artery disease) Diabetes Mother , related to sepsis from diverticulitis Arthritis Surgical History H/O cervical spine surgery (03/2019) H/O coronary artery bypass surgery (05/22/03) History of bone marrow biopsy History of coronary artery stent placement (04/14/16) History of left knee surgery (08/2018) History of shoulder surgery Social History Smoking Status: Former smoker alcohol intake: never substance use type: does not use caffeine: Yes Type: coffee Number of servings: 2 what type of physical activity do you participate in: walking and bicycling frequency: daily duration: 60-90 minutes/day seatbelt use: always do you feel safe at home: Yes Physical Exam Narrative Alert and responsive chronically ill-appearing man lungs are clear heart exam S1-S2 I cannot appreciate a heart murmur abdomen firm but nontender. No peripheral skin lesions noted rheumatological exam unremarkable Medical Records Data Medical Nutrition Assessment Dietitian: Malnutrition Criteria Met Start: 06/12/21 17:35 Freq: Status: Active Protocol: Document 06/12/21 17:35 RMA (Rec: 06/12/21 17:35 RMA [id number]) Nutrition Malnutrition Evidence of Malnutrition Exists Yes Malnutrition (severe): Chronic Evidenced By Suboptimal Energy Intake ( Severe),Weight Loss (Severe) Clinical Problem Chronic Disease or Condition Related Malnutrition Etiology Severe protein/calorie malnutrition in the context of chronic disease related to inadequate oral intake/chemo Signs/Symptoms as evidenced by ~20% wt loss x past 6-12 months and PO meeting less than 50% estimated nutrition needs Status Active Problem Recommendation Dietitian Recommendations/Changes Will adjust diet to carbohydrate-controlled with vanilla milkshake at lunch time per pt preference; no raw fruits/vegetables as per patient/family request. Will add 120 ml glucerna shake TID w/ medpass. Adjust ONS as needed to optimize oral intake and prevent further wt loss. Lab / Micro Data Result Diagrams: 06/13/21 11:30 06/13/21 05:45 Labs: Laboratory Results - last 24 hr 06/12/21 12:25: Magnesium 1.6 06/12/21 13:37: POC Glucose 149 H 06/12/21 16:22: POC Glucose 168 H 06/12/21 21:55: POC Glucose 153 H 06/13/21 05:45: WBC 0.3 L*, RBC 2.31 L, Hgb 7.0 L, Hct 20.0 L, MCV 86.6, MCH 30.3, MCHC 35.0, RDW Std Deviation 41.6, RDW Coeff of Jamie 13.7, Plt Count 132 L, MPV 10.0, Immature Gran % (Auto) 0.000, Neut % (Auto) 8.8 L, Lymph % (Auto) 82.4 H, [place] % (Auto) 8.8, Eos % (Auto) 0.0, Baso % (Auto) 0.0, Absolute Neuts (auto) 0.0 L, Absolute Lymphs (auto) 0.28 L, Nucleated RBC % 0, Differential Comment SCANNED, Diff Path Review May foll, Atypical Lymphocytes 1+ 06/13/21 05:45: Sodium 133 L, Potassium 3.5, Chloride 102, Carbon Dioxide 23.0, Anion Gap 8, BUN 10, Creatinine 0.51 L, Estim Creat Clear Calc 141.57, Est GFR (MDRD) Af Amer 211, Est GFR (MDRD) Non-Af 174, BUN/Creatinine Ratio 19.6, Glucose 149 H, Calcium 8.2 L, Total Bilirubin 1.50 H, AST 18, ALT 18, Alkaline Phosphatase 70, Total Protein 6.6, Albumin 2.4 L, Globulin 4.2, Albumin/Globulin Ratio 0.6 L 06/13/21 06:20: POC Glucose 158 H 06/13/21 11:28: POC Glucose 178 H 06/13/21 11:30: Hgb 6.8 L, Hct 19.6 L Micro: Microbiology 06/12/21 10:40 Blood Culture (Wb) - Anticubital Right Blood Culture - Preliminary 06/12/21 09:36 Blood Culture (Wb) - Anticubital Left Bacteria Detection (PCR) - Final Enterococcus faecalis 06/12/21 09:36 Blood Culture (Wb) - Anticubital Left Blood Culture - Preliminary 06/12/21 11:34 Nasal Secretion SARS-CoV-2 Antigen (Rapid) - Final
[2021-06-13] MEDS: Morphine 2 MG/ML Syringe IV ×2 (13:19→22:40)
[2021-06-13 17:25] LABS: Bedside Glucose 189 mg/dL (74-106)
[2021-06-13] MEDS: 0.9% Saline Lock 10 ML Syringe IV (22:43)
[2021-06-13 22:56] LABS: Bedside Glucose 184 mg/dL (74-106)
[2021-06-14] VITALS (10 sets, daily range): BP systolic 87–120; BP diastolic 49–91; PULSE 85–109; RESP 18–20; TEMP 37–38.4; O2SAT 95–98
[2021-06-14] MEDS: Acetaminophen 325 MG Tablet 650 MG PO ×4 (02:21→20:24)
[2021-06-14] MEDS: oxyCODONE 5 MG Tablet PO ×4 (02:22→20:24)
[2021-06-14] MEDS: Morphine 2 MG/ML Syringe IV ×2 (04:30→15:32)
[2021-06-14 06:50] LABS: Bedside Glucose 116 mg/dL (74-106)
[2021-06-14 06:57] LABS: Absolute Lymphocyte Count 0.35 X10^3/uL (0.83-4.51); Hematocrit 22.4 % (40-54); Hemoglobin 7.8 g/dL (13.0-16.5); Lymphocyte # 0.35 X10^3/ul (0.83-4.51); Lymphocyte % 89.7 % (19-41); Mean Corp Hgb Conc 34.8 g/dL (32-36); Mean Corpuscular Hgb 30.2 pg (27.0-32.0); Mean Corpuscular Volume 86.8 fL (80-94); Mean Platelet Vol. 9.4 fl (6.2-12.0); Monocyte# 0.02 X10^3/uL; Monocyte% 5.1 % (0-10); NRBC Flagged by Analyzer 0 % (0-5); Neutrophil # 0.01 X10^3/uL (2.7-7.7); Neutrophil % 2.6 % (47-70); POSITIVE COUNT YES; POSITIVE DIFFERENTIAL YES; POSITIVE MORPHOLOGY YES; Platelet Count 148 K/mm3 (150-450); RBC Distribution Width CV 14.6 % (11.6-14.6); RBC Distribution Width SD 44.9 fl (35.1-43.9); Red Blood Count 2.58 M/mm3 (4.6-6.2)
[2021-06-14 07:01] LABS: Differential Indicated SCAN CRITERIA MET; White Blood Count 0.4 K/mm3 (4.4-11.0)
[2021-06-14 07:21] LABS: ALB/GLOB Ratio 0.5 RATIO (0.9-2.4); AST(SGOT) 19 U/L (15-37); Alanine Aminotransfer ALT/SGPT 16 U/L (16-61); Albumin, Serum 2.2 g/dL (3.2-5.0); Alkaline Phosphatase 66 U/L (45-117); Anion Gap 5 (5-15); BUN 10 mg/dL (7-18); BUN/Creat Ratio 19.1 RATIO (10-20); Calcium,Total 8.6 mg/dL (8.5-10.1); Chloride 106 mmol/L (98-107); Creatinine, Serum 0.52 mg/dL (0.70-1.30); EST Glomerular Filtration Rate 169 mL/min (>60); Est Glom Filt Rate - Afr Amer 204 mL/min (>60); Estimated Creatinine Clearance 138.85 ml/min; Globulin 4.5 g/dL (2.2-4.2); Glucose 128 mg/dL (74-106); Potassium 3.6 mmol/L (3.5-5.1); Protein, Total 6.7 g/dL (6.4-8.2); Sodium Level 137 mmol/L (136-145)
[2021-06-14 11:19] LABS: Differential Comment SCANNED
--- NOTE | 2021-06-14 11:50 | PN.HOSP_ITS ---
Subjective Subjective Patient seen and examined. He has no complaints today and feels much better. Review of systems is otherwise negative. His fever is improving. Objective Data Objective Data Vital Signs: Vital Signs Temp Pulse Resp BP Pulse Ox 99.3 F H 100 18 109/65 96 06/14/21 10:00 06/14/21 10:00 06/14/21 10:00 06/14/21 10:00 06/14/21 10:00 Oxygen Delivery Method Room Air Weight: 184 lb 11.958 oz Body Mass Index (BMI) 28.0 Intake & Output: Intake and Output for Last 24 Hours 06/12/21 06/13/21 06/14/21 23:59 23:59 23:59 Intake Total 438.0 / 438.0 1150 / 1630 820 / 820 Output Total 0 / 0 1525 / 1525 100 / 100 Balance 438.0 / 438.0 -375 / 105 720 / 720 Medical Nutrition Assessment Dietitian: Malnutrition Criteria Met Start: 06/12/21 17:35 Freq: Status: Active Protocol: Document 06/12/21 17:35 RMA (Rec: 06/12/21 17:35 RMA [id number]) Nutrition Malnutrition Evidence of Malnutrition Exists Yes Malnutrition (severe): Chronic Evidenced By Suboptimal Energy Intake ( Severe),Weight Loss (Severe) Clinical Problem Chronic Disease or Condition Related Malnutrition Etiology Severe protein/calorie malnutrition in the context of chronic disease related to inadequate oral intake/chemo Signs/Symptoms as evidenced by ~20% wt loss x past 6-12 months and PO meeting less than 50% estimated nutrition needs Status Active Problem Recommendation Dietitian Recommendations/Changes Will adjust diet to carbohydrate-controlled with vanilla milkshake at lunch time per pt preference; no raw fruits/vegetables as per patient/family request. Will add 120 ml glucerna shake TID w/ medpass. Adjust ONS as needed to optimize oral intake and prevent further wt loss. Lab / Micro Data Result Diagrams: 06/14/21 06:43 06/14/21 06:43 Labs: Laboratory Results - last 24 hr 06/13/21 11:30: Hgb 6.8 L, Hct 19.6 L 06/13/21 11:30: Blood Type O POSITIVE, Antibody Screen NEGATIVE, Crossmatch See Detail 06/13/21 17:17: POC Glucose 189 H 06/13/21 22:39: POC Glucose 184 H 06/14/21 06:42: POC Glucose 116 H 06/14/21 06:43: WBC 0.4 L*, RBC 2.58 L, Hgb 7.8 L, Hct 22.4 L, MCV 86.8, MCH 30.2, MCHC 34.8, RDW Std Deviation 44.9 H, RDW Coeff of Jamie 14.6, Plt Count 148 L, MPV 9.4, Immature Gran % (Auto) 2.600 H, Neut % (Auto) 2.6 L, Lymph % (Auto) 89.7 H, [place] % (Auto) 5.1, Eos % (Auto) 0.0, Baso % (Auto) 0.0, Absolute Neuts (auto) 0.0 L, Absolute Lymphs (auto) 0.35 L, Nucleated RBC % 0, Differential Comment SCANNED, Diff Path Review July06/14/21 06:43: Sodium 137, Potassium 3.6, Chloride 106, Carbon Dioxide 26.0, Anion Gap 5, BUN 10, Creatinine 0.52 L, Estim Creat Clear Calc 138.85, Est GFR (MDRD) Af Amer 204, Est GFR (MDRD) Non-Af 169, BUN/Creatinine Ratio 19.1, Gl ucose 128 H, Calcium 8.6, Total Bilirubin 1.20 H, AST 19, ALT 16, Alkaline Phosphatase 66, Total Protein 6.7, Albumin 2.2 L, Globulin 4.5 H, Albumin/Globulin Ratio 0.5 L Micro: Microbiology 06/12/21 10:40 Blood Culture (Wb) - Anticubital Right Blood Culture - Final GPC Poss Enterococcus sp 06/12/21 09:36 Blood Culture (Wb) - Anticubital Left Bacteria Detection (PCR) - Final Enterococcus faecalis 06/12/21 09:36 Blood Culture (Wb) - Anticubital Left Blood Culture - Preliminary Enterococcus faecalis 06/12/21 11:34 Nasal Secretion SARS-CoV-2 Antigen (Rapid) - Final Radiography Diagnostic Testing: Radiology Impression Echocardiogram 06/13/21 07:42 Interpretation Summary The estimated ejection fraction is 55-60 %. Grade #1 Diastolic function No significant changes from prior echo Ordering Physician: Rosina Nickerson Referring Physician: MD Heladio Jose Luis Performed By: Nicky Nur RCS Physical Exam Const alert, oriented x3 and no apparent distress General Appearance: cooperative Exam Limitations: no limitations HEENT normocephalic, head/scalp atraumatic, hearing grossly normal bilaterally and moist oral mucous membranes Head and Scalp: normocephalic Eyes PERRL, EOMs intact bilaterally and conjunctivae normal Neck no lymphadenopathy, supple and no JVD Resp normal respiratory effort, no retractions, no use of accessory muscles and clear to auscultation bilaterally Cardio regular rate, regular rhythm, S1 normal heart sound, S2 normal heart sound and no murmurs GI normal to inspection, nondistended, normoactive bowel sounds, soft to palpation, non-tender and non-distended Extremity normal to inspection, full ROM and no clubbing, cyanosis or edema Peripheral Pulses: Yes pulses 2+ throughout Skin no rashes or lesions noted Neuro oriented x3, CN's II-XII intact bilaterally and moves all extremities Sensorium / Orientation: awake and alert Psych affect normal Assessment & Plan Assessment/Plan (1) Pancytopenia: (2) Febrile neutropenia: PLAN: #Febrile neutropenia * has a history of AML and MDS * wbc is 0.4 today. * blood cultures growing Enterococcus fecalis * on IV zosyn * 2D echo shwoed EF of 55-60% and no evidence of vegetation wih grade 1 diastolic dysfunction. * repeat blood cultures ordered * ID on board. * * #Lactic acidosis:resolved #Pancytopenia * Due to acute leukemia myelodysplastic syndrome likely exacerbated by recent chemotherapy * WBC is 0.4 with hemoglobin of 7.8 today and platelets of 148 * repeat H&H and transfuse if Hb <7 * * #History of AML and myelodysplastic syndrome * As stated above, goes for chemotherapy in [facility]. * to follow up with oncology in [place] once he is stable #Hypokalemia: resolved #History of CAD s/p CABG: On carvedilol, rosuvastatin #Hypertension: On lisinopril and carvedilol DVT prophylaxis: lovenox; monitor platelets and dc if platelets continue to drop Code status: full code Charges/Coding Visit Charges Inpatient E&M: 59439 Subs Hosp L2
[2021-06-14] MEDS: Insulin Lispro 100 UNIT/ML INSULN.PEN SC ×3 (12:13→22:37)
[2021-06-14 12:30] LABS: Bedside Glucose 252 mg/dL (74-106)
[2021-06-14] MEDS: Ondansetron 4 MG/2 ML Vial IV (15:36)
[2021-06-14 17:51] LABS: Bedside Glucose 162 mg/dL (74-106)
[2021-06-15] VITALS (8 sets, daily range): BP systolic 119–127; BP diastolic 76–97; PULSE 89–105; RESP 16–18; TEMP 36.7–38.1; O2SAT 95–99
[2021-06-15 00:31] LABS: Bedside Glucose 166 mg/dL (74-106)
[2021-06-15] MEDS: Morphine 2 MG/ML Syringe IV ×2 (01:55→06:37)
[2021-06-15 06:02] LABS: Absolute Lymphocyte Count 0.35 X10^3/uL (0.83-4.51); Hematocrit 21.6 % (40-54); Hemoglobin 7.4 g/dL (13.0-16.5); Lymphocyte # 0.35 X10^3/ul (0.83-4.51); Lymphocyte % 79.5 % (19-41); Mean Corp Hgb Conc 34.3 g/dL (32-36); Mean Corpuscular Hgb 29.6 pg (27.0-32.0); Mean Corpuscular Volume 86.4 fL (80-94); Mean Platelet Vol. 10.2 fl (6.2-12.0); Monocyte# 0.05 X10^3/uL; Monocyte% 11.4 % (0-10); NRBC Flagged by Analyzer 0 % (0-5); Neutrophil # 0.04 X10^3/uL (2.7-7.7); Neutrophil % 9.1 % (47-70); POSITIVE COUNT YES; POSITIVE DIFFERENTIAL YES; POSITIVE MORPHOLOGY YES; Platelet Count 169 K/mm3 (150-450); RBC Distribution Width CV 14.8 % (11.6-14.6); RBC Distribution Width SD 44.9 fl (35.1-43.9)
[2021-06-15 06:11] LABS: Differential Indicated SCAN CRITERIA MET; White Blood Count 0.4 K/mm3 (4.4-11.0)
[2021-06-15 06:24] LABS: ALB/GLOB Ratio 0.4 RATIO (0.9-2.4); AST(SGOT) 24 U/L (15-37); Alanine Aminotransfer ALT/SGPT 18 U/L (16-61); Alkaline Phosphatase 69 U/L (45-117); Anion Gap 8 (5-15); BUN 11 mg/dL (7-18); BUN/Creat Ratio 24.8 RATIO (10-20); Calcium,Total 8.3 mg/dL (8.5-10.1); Chloride 104 mmol/L (98-107); Creatinine, Serum 0.44 mg/dL (0.70-1.30); EST Glomerular Filtration Rate 205 mL/min (>60); Est Glom Filt Rate - Afr Amer 248 mL/min (>60); Estimated Creatinine Clearance 164.09 ml/min; Globulin 4.5 g/dL (2.2-4.2); Glucose 132 mg/dL (74-106); Potassium 3.3 mmol/L (3.5-5.1); Protein, Total 6.5 g/dL (6.4-8.2); Sodium Level 137 mmol/L (136-145)
[2021-06-15 06:39] LABS: Differential Comment SCANNED; Hypochromasia 1+
[2021-06-15 07:20] LABS: Bedside Glucose 132 mg/dL (74-106)
[2021-06-15] MEDS: oxyCODONE 5 MG Tablet PO (08:06)
[2021-06-15] MEDS: Acetaminophen 325 MG Tablet 650 MG PO ×3 (08:06→20:23)
[2021-06-15] MEDS: oxyCODONE 5 MG Tablet 10 MG PO ×3 (09:18→20:22)
[2021-06-15] MEDS: Docusate Sodium 100 MG Capsule PO (09:19)
[2021-06-15] MEDS: Potassium Chloride Oral Tablet 20 MEQ 40 MEQ PO (09:19)
--- NOTE | 2021-06-15 11:02 | PN.HOSP_ITS ---
Subjective Subjective Patient seen and examined. He complains that his back pain is not well controlled. He however has no other complaints and review of systems otherwise negative. He has remained hemodynamically stable. His repeat blood cultures are still positive in 1 out of 2 samples for gram positive cocci in chains. Objective Data Objective Data Vital Signs: Vital Signs Temp Pulse Resp BP Pulse Ox 98.1 F 98 18 119/76 95 06/15/21 08:15 06/15/21 08:15 06/15/21 08:15 06/15/21 08:15 06/15/21 08:15 Oxygen Delivery Method Room Air Weight: 184 lb 11.958 oz Body Mass Index (BMI) 28.0 Intake & Output: Intake and Output for Last 24 Hours 06/13/21 06/14/21 06/15/21 23:59 23:59 23:59 Intake Total 1150 / 1630 1350 / 1350 100 / 100 Output Total 1525 / 1525 500 / 800 500 / 500 Balance -375 / 105 850 / 550 -400 / -400 Medical Nutrition Assessment Dietitian: Malnutrition Criteria Met Start: 06/12/21 17:35 Freq: Status: Active Protocol: Document 06/12/21 17:35 RMA (Rec: 06/12/21 17:35 RMA [id number]) Nutrition Malnutrition Evidence of Malnutrition Exists Yes Malnutrition (severe): Chronic Evidenced By Suboptimal Energy Intake ( Severe),Weight Loss (Severe) Clinical Problem Chronic Disease or Condition Related Malnutrition Etiology Severe protein/calorie malnutrition in the context of chronic disease related to inadequate oral intake/chemo Signs/Symptoms as evidenced by ~20% wt loss x past 6-12 months and PO meeting less than 50% estimated nutrition needs Status Active Problem Recommendation Dietitian Recommendations/Changes Will adjust diet to carbohydrate-controlled with vanilla milkshake at lunch time per pt preference; no raw fruits/vegetables as per patient/family request. Will add 120 ml glucerna shake TID w/ medpass. Adjust ONS as needed to optimize oral intake and prevent further wt loss. Lab / Micro Data Result Diagrams: 06/15/21 05:20 06/15/21 05:20 Labs: Laboratory Results - last 24 hr 06/14/21 06:43: Differential Comment SCANNED, Diff Path Review July06/14/21 12:11: POC Glucose 252 H 06/14/21 17:14: POC Glucose 162 H 06/14/21 22:35: POC Glucose 166 H 06/15/21 05:20: WBC 0.4 L*, RBC 2.50 L, Hgb 7.4 L, Hct 21.6 L, MCV 86.4, MCH 29.6, MCHC 34.3, RDW Std Deviation 44.9 H, RDW Coeff of Jamie 14.8 H, Plt Count 169, MPV 10.2, Immature Gran % (Auto) 0.000, Neut % (Auto) 9.1 L, Lymph % (Auto) 79.5 H, [place] % (Auto) 11.4 H, Eos % (Auto) 0.0, Baso % (Auto) 0.0, Absolute Neuts (auto) 0.0 L, Absolute Lymphs (auto) 0.35 L, Nucleated RBC % 0, Differ ential Comment SCANNED, Diff Path Review July foll, Hypochromasia 1+ 06/15/21 05:20: Sodium 137, Potassium 3.3 L, Chloride 104, Carbon Dioxide 25.0, Anion Gap 8, BUN 11, Creatinine 0.44 L, Estim Creat Clear Calc 164.09, Est GFR (MDRD) Af Amer 248, Est GFR (MDRD) Non-Af 205, BUN/Creatinine Ratio 24.8 H, Glucose 132 H, Calcium 8.3 L, Total Bilirubin 1.00, AST 24, ALT 18, Alkaline Phosphatase 69, Total Protein 6.5, Albumin 2.0 L, Globulin 4.5 H, Albumin/Globulin Ratio 0.4 L 06/15/21 06:35: POC Glucose 132 H Micro: Microbiology 06/13/21 11:45 Blood Culture (Wb) - Right Wrist Blood Culture - Preliminary 06/13/21 11:30 Blood Culture (Wb) - Right Hand Blood Culture - Preliminary No growth in 48 hours. 06/12/21 09:36 Blood Culture (Wb) - Anticubital Left Bacteria Detection (PCR) - Final Enterococcus faecalis 06/12/21 09:36 Blood Culture (Wb) - Anticubital Left Blood Culture - Final Enterococcus faecalis 06/12/21 10:40 Blood Culture (Wb) - Anticubital Right Blood Culture - Final GPC Poss Enterococcus sp 06/12/21 11:34 Nasal Secretion SARS-CoV-2 Antigen (Rapid) - Final Physical Exam Const alert, oriented x3 and no apparent distress General Appearance: cooperative Exam Limitations: no limitations HEENT normocephalic, head/scalp atraumatic, hearing grossly normal bilaterally and moist oral mucous membranes Head and Scalp: normocephalic Eyes PERRL, EOMs intact bilaterally and conjunctivae normal Neck no lymphadenopathy, supple and no JVD Resp normal respiratory effort, no retractions, no use of accessory muscles and clear to auscultation bilaterally Cardio regular rate, regular rhythm, S1 normal heart sound, S2 normal heart sound and no murmurs GI normal to inspection, nondistended, normoactive bowel sounds, soft to palpation, non-tender and non-distended Extremity normal to inspection, full ROM and no clubbing, cyanosis or edema Peripheral Pulses: Yes pulses 2+ throughout Skin no rashes or lesions noted Neuro oriented x3, CN's II-XII intact bilaterally and moves all extremities Sensorium / Orientation: awake and alert Psych affect normal Assessment & Plan Assessment/Plan (1) Pancytopenia: (2) Febrile neutropenia: PLAN: #Febrile neutropenia * has a history of AML and MDS * wbc is 0.4 today. * blood cultures growing Enterococcus fecalis * on IV zosyn * 2D echo shwoed EF of 55-60% and no evidence of vegetation wih grade 1 diastolic dysfunction. * repeat blood cultures growing gram-positive cocci in chains in 1 out of 2 samples. * ID on board. * #Bacteremia due to Enterococcus faecalis * Management as above. * #Lactic acidosis:resolved #Pancytopenia * Due to acute leukemia myelodysplastic syndrome likely exacerbated by recent chemotherapy * WBC is 0.4 with hemoglobin of 7.4 today and platelets of 169 * repeat H&H and transfuse if Hb <7 * * #History of AML and myelodysplastic syndrome * As stated above, goes for chemotherapy in [facility]. * to follow up with oncology in [place] once he is stable #Hypokalemia: resolved #Chronic back pain due to spinal stenosis * Cc been told he needs surgery but surgery cannot be done in light of his immunocompromise state from leukemia myelodysplastic syndrome * Will increase oxycodone to 10 mg daily. Also on IV morphine as needed and p.o. Tylenol * Patient counseled that he would benefit from establishing with chronic pain management. #History of CAD s/p CABG: On carvedilol, rosuvastatin #Hypertension: On lisinopril and carvedilol DVT prophylaxis: lovenox; monitor platelets and dc if platelets drop Code status: full code Charges/Coding Visit Charges Inpatient E&M: 16179 Subs Hosp L2
[2021-06-15] MEDS: Insulin Lispro 100 UNIT/ML INSULN.PEN SC ×2 (11:30→16:53)
[2021-06-15 11:51] LABS: Bedside Glucose 197 mg/dL (74-106)
[2021-06-15] MEDS: Ondansetron 4 MG/2 ML Vial IV (14:19)
[2021-06-15] MEDS: Glucerna Shake 120 ML LIQUID PO (16:53)
[2021-06-15 17:10] LABS: Bedside Glucose 167 mg/dL (74-106)
[2021-06-16] VITALS (9 sets, daily range): BP systolic 107–129; BP diastolic 58–80; PULSE 78–110; RESP 16–18; TEMP 36.1–39; O2SAT 93–97
[2021-06-16 00:01] LABS: Bedside Glucose 139 mg/dL (74-106)
[2021-06-16] MEDS: Ondansetron 4 MG/2 ML Vial IV ×2 (02:31→16:51)
[2021-06-16] MEDS: Acetaminophen 325 MG Tablet 650 MG PO ×3 (02:35→19:48)
[2021-06-16] MEDS: oxyCODONE 5 MG Tablet 10 MG PO ×3 (02:35→19:48)
[2021-06-16 06:26] LABS: Absolute Lymphocyte Count 0.43 X10^3/uL (0.83-4.51); Hematocrit 21.4 % (40-54); Hemoglobin 7.2 g/dL (13.0-16.5); Lymphocyte # 0.43 X10^3/ul (0.83-4.51); Lymphocyte % 76.8 % (19-41); Mean Corp Hgb Conc 33.6 g/dL (32-36); Mean Corpuscular Hgb 29.4 pg (27.0-32.0); Mean Corpuscular Volume 87.3 fL (80-94); Mean Platelet Vol. 9.5 fl (6.2-12.0); Monocyte# 0.07 X10^3/uL; Monocyte% 12.5 % (0-10); NRBC Flagged by Analyzer 0 % (0-5); Neutrophil # 0.04 X10^3/uL (2.7-7.7); Neutrophil % 7.1 % (47-70); POSITIVE COUNT YES; POSITIVE DIFFERENTIAL YES; POSITIVE MORPHOLOGY YES; Platelet Count 179 K/mm3 (150-450); RBC Distribution Width SD 46.2 fl (35.1-43.9); Red Blood Count 2.45 M/mm3 (4.6-6.2)
[2021-06-16 06:43] LABS: Differential Indicated SCAN CRITERIA MET
[2021-06-16 06:44] LABS: White Blood Count 0.6 K/mm3 (4.4-11.0)
[2021-06-16 06:49] LABS: Differential Comment SCANNED
[2021-06-16 06:51] LABS: Bedside Glucose 148 mg/dL (74-106)
[2021-06-16 06:59] LABS: ALB/GLOB Ratio 0.4 RATIO (0.9-2.4); AST(SGOT) 26 U/L (15-37); Alanine Aminotransfer ALT/SGPT 16 U/L (16-61); Albumin, Serum 1.8 g/dL (3.2-5.0); Alkaline Phosphatase 71 U/L (45-117); Anion Gap 6 (5-15); BUN 10 mg/dL (7-18); BUN/Creat Ratio 25.1 RATIO (10-20); Calcium,Total 8.4 mg/dL (8.5-10.1); Chloride 106 mmol/L (98-107); EST Glomerular Filtration Rate 232 mL/min (>60); Est Glom Filt Rate - Afr Amer 280 mL/min (>60); Globulin 4.7 g/dL (2.2-4.2); Glucose 141 mg/dL (74-106); Potassium 3.5 mmol/L (3.5-5.1); Protein, Total 6.5 g/dL (6.4-8.2); Sodium Level 137 mmol/L (136-145)
[2021-06-16 09:10] LABS: Pathologist Review Reviewed
[2021-06-16 09:12] LABS: Pathologist Review Reviewed
[2021-06-16] MEDS: Docusate Sodium 100 MG Capsule PO (09:49)
[2021-06-16] MEDS: Glucerna Shake 120 ML LIQUID PO ×3 (09:49→16:46)
[2021-06-16] MEDS: Insulin Lispro 100 UNIT/ML INSULN.PEN SC ×2 (11:30→16:45)
[2021-06-16 11:36] LABS: Bedside Glucose 189 mg/dL (74-106)
--- NOTE | 2021-06-16 12:57 | PN.HOSP_ITS ---
Subjective Subjective Follow-up on febrile neutropenia/malnutrition: Patient was seen and examined. He appears fatigued. He has been spiking fevers. No other new complaints. Objective Data Objective Data Vital Signs: Vital Signs Temp Pulse Resp BP Pulse Ox 96.9 F L 92 18 124/80 H 97 06/16/21 07:53 06/16/21 07:53 06/16/21 07:53 06/16/21 07:53 06/16/21 07:53 Oxygen Delivery Method Room Air Weight: 83.8 kg Body Mass Index (BMI) 28.0 Intake & Output: Intake and Output for Last 24 Hours 06/14/21 06/15/21 06/16/21 23:59 23:59 23:59 Intake Total 1350 / 1350 630 / 630 866.5 / 866.5 Output Total 500 / 800 750 / 850 300 / 300 Balance 850 / 550 -120 / -220 566.5 / 566.5 Medical Nutrition Assessment Dietitian: Malnutrition Criteria Met Start: 06/12/21 17:35 Freq: Status: Active Protocol: Document 06/12/21 17:35 RMA (Rec: 06/12/21 17:35 RMA [id number]) Nutrition Malnutrition Evidence of Malnutrition Exists Yes Malnutrition (severe): Chronic Evidenced By Suboptimal Energy Intake ( Severe),Weight Loss (Severe) Clinical Problem Chronic Disease or Condition Related Malnutrition Etiology Severe protein/calorie malnutrition in the context of chronic disease related to inadequate oral intake/chemo Signs/Symptoms as evidenced by ~20% wt loss x past 6-12 months and PO meeting less than 50% estimated nutrition needs Status Active Problem Recommendation Dietitian Recommendations/Changes Will adjust diet to carbohydrate-controlled with vanilla milkshake at lunch time per pt preference; no raw fruits/vegetables as per patient/family request. Will add 120 ml glucerna shake TID w/ medpass. Adjust ONS as needed to optimize oral intake and prevent further wt loss. Lab / Micro Data Result Diagrams: 06/16/21 05:42 06/16/21 05:42 Labs: Laboratory Results - last 24 hr 06/12/21 09:36: Diff Path Review Reviewed 06/13/21 05:45: Diff Path Review Reviewed 06/15/21 16:52: POC Glucose 167 H 06/15/21 20:53: POC Glucose 139 H 06/16/21 05:42: WBC 0.6 L*, RBC 2.45 L, Hgb 7.2 L, Hct 21.4 L, MCV 87.3, MCH 29.4, MCHC 33.6, RDW Std Deviation 46.2 H, RDW Coeff of Jamie 15.0 H, Plt Count 179, MPV 9.5, Immature Gran % (Auto) 3.600 H, Neut % (Auto) 7.1 L, Lymph % (Auto ) 76.8 H, Cook % (Auto) 12.5 H, Eos % (Auto) 0.0, Baso % (Auto) 0.0, Absolute Neuts (auto) 0.0 L, Absolute Lymphs (auto) 0.43 L, Nucleated RBC % 0, Differential Comment SCANNED, Diff Path Review July06/16/21 05:42: Sodium 137, Potassium 3.5, Chloride 106, Carbon Dioxide 25.0, Anion Gap 6, BUN 10, Creatinine 0.40 L, Estim Creat Clear Calc 180.50, Est GFR (MDRD) Af Amer 280, Est GFR (MDRD) Non-Af 232, BUN/Creatinine Ratio 25.1 H, Gl ucose 141 H, Calcium 8.4 L, Total Bilirubin 1.00, AST 26, ALT 16, Alkaline Phosphatase 71, Total Protein 6.5, Albumin 1.8 L, Globulin 4.7 H, Albumin/Globulin Ratio 0.4 L 06/16/21 06:24: POC Glucose 148 H 06/16/21 11:30: POC Glucose 189 H Micro: Microbiology 06/13/21 11:45 Blood Culture (Wb) - Right Wrist Blood Culture - Preliminary Gram Positive Cocci 06/13/21 11:30 Blood Culture (Wb) - Right Hand Blood Culture - Preliminary No growth in 48 hours. 06/12/21 09:36 Blood Culture (Wb) - Anticubital Left Bacteria Detection (PCR) - Final Enterococcus faecalis 06/12/21 09:36 Blood Culture (Wb) - Anticubital Left Blood Culture - Final Enterococcus faecalis 06/12/21 10:40 Blood Culture (Wb) - Anticubital Right Blood Culture - Final GPC Poss Enterococcus sp 06/12/21 11:34 Nasal Secretion SARS-CoV-2 Antigen (Rapid) - Final Physical Exam Narrative Physical exam: General: Alert, Oriented x3, Cooperative, No apparent distress, Well developed HEENT: Atraumatic Oral: Moist Mucosa Neck: Supple Lungs: Clear to auscultation Cardiovascular: HS I+II, regular, no murmurs Abdomen: Bowel Sounds Present, Soft, Non Tender Extremities: No edema Assessment & Plan Assessment/Plan (1) Pancytopenia: (2) Febrile neutropenia: PLAN: 1. Acute febrile neutropenia/Enterococcus faecalis bacteremia ANC is 0. Patient remains febrile, remains on IV Zosyn 2D echo shwoed EF of 55-60% and no evidence of vegetation wih grade 1 diastolic dysfunction. Repeat blood cultures growing gram-positive cocci in chains in 1 out of 2 s amples. ID following 2. Lactic acidosis, resolved 3. Pancytopenia, WBC remains about the same History of AML/myelodysplastic syndrome WBC is 0.6 from 0.4. Hb 7.2 Follows with [facility] for chemotherapy 4. Hypokalemia: resolved 5. Rest of chronic medical conditions - Chronic back pain due to spinal bea nosis/CAD s/p CABG/Hypertension, remains stable Home meds continued 6. DVT PPx- Lovenox SC Charges/Coding Visit Charges Inpatient E&M: 55745 Subs Hosp L3
[2021-06-16 13:00] LABS: Pathologist Review Reviewed
[2021-06-16 13:08] LABS: Pathologist Review Reviewed
[2021-06-16 13:19] LABS: Pathologist Review Reviewed
--- NOTE | 2021-06-16 14:40 | PCM.PN.ID ---
Physical Exam Narrative Feeling ok, still fevers. No dyspnea, no n/v, some diarrhea. Some altered sense of taste. Const alert and no apparent distress General Appearance: cooperative HEENT HEENT Narrative: no thrush Resp normal air movement and clear to auscultation bilaterally Cardio regular rate and regular rhythm GI soft to palpation, non-tender and non-distended Skin no rashes or lesions noted ID ID: Route of nutrition/ use of supplements: [] Nutritional Intake: [] IV Site: [] Villeda Catheter: [] Assessment & Plan Assessment/Plan (1) Febrile neutropenia: PLAN: With persistent enterococcal bacteremia. Will repeat bcx today. TTE showed no veg. Still fever, still neutropenia. On zosyn, will continue. Will give course of fluconazole to see if this helps his throat/sense of taste. Will follow
[2021-06-16] MEDS: Fluconazole 100 MG Tablet 400 MG PO (16:44)
[2021-06-16 17:41] LABS: Bedside Glucose 175 mg/dL (74-106)
[2021-06-16] MEDS: Ibuprofen 600 MG Tablet PO (18:56)
[2021-06-16] MEDS: 0.9% Saline Lock 10 ML Syringe IV (18:57)
[2021-06-16] MEDS: Lactated Ringers 1,000 ML 75 ML IV (18:57)
--- NOTE | 2021-06-16 18:58 | NURSING ---
Reviewed charting with Jaylin Jose RN
[2021-06-16 22:16] LABS: Bedside Glucose 135 mg/dL (74-106)
[2021-06-17] VITALS (8 sets, daily range): BP systolic 113–131; BP diastolic 70–78; PULSE 62–118; RESP 16–20; TEMP 36.4–37.4; O2SAT 97–99
[2021-06-17 06:18] LABS: Absolute Lymphocyte Count 0.48 X10^3/uL (0.83-4.51); Absolute Neutrophil Count 0.1 X10^3/uL (2.0-7.7); Hematocrit 21.3 % (40-54); Hemoglobin 7.2 g/dL (13.0-16.5); Lymphocyte # 0.48 X10^3/ul (0.83-4.51); Lymphocyte % 70.6 % (19-41); Mean Corp Hgb Conc 33.8 g/dL (32-36); Mean Corpuscular Hgb 30.3 pg (27.0-32.0); Mean Corpuscular Volume 89.5 fL (80-94); Mean Platelet Vol. 10.1 fl (6.2-12.0); Monocyte# 0.08 X10^3/uL; Monocyte% 11.8 % (0-10); NRBC Flagged by Analyzer 0 % (0-5); Neutrophil # 0.11 X10^3/uL (2.7-7.7); Neutrophil % 16.1 % (47-70); POSITIVE COUNT YES; POSITIVE DIFFERENTIAL YES; POSITIVE MORPHOLOGY YES; Platelet Count 165 K/mm3 (150-450); RBC Distribution Width CV 15.1 % (11.6-14.6); RBC Distribution Width SD 46.5 fl (35.1-43.9); Red Blood Count 2.38 M/mm3 (4.6-6.2)
[2021-06-17 06:24] LABS: Differential Indicated SCAN CRITERIA MET; White Blood Count 0.7 K/mm3 (4.4-11.0)
[2021-06-17 06:37] LABS: Differential Comment SCANNED
[2021-06-17 06:41] LABS: ALB/GLOB Ratio 0.4 RATIO (0.9-2.4); AST(SGOT) 20 U/L (15-37); Alanine Aminotransfer ALT/SGPT 17 U/L (16-61); Albumin, Serum 1.8 g/dL (3.2-5.0); Alkaline Phosphatase 78 U/L (45-117); Anion Gap 5 (5-15); BUN 15 mg/dL (7-18); BUN/Creat Ratio 38.2 RATIO (10-20); Calcium,Total 8.3 mg/dL (8.5-10.1); Chloride 104 mmol/L (98-107); Creatinine, Serum 0.39 mg/dL (0.70-1.30); EST Glomerular Filtration Rate 235 mL/min (>60); Est Glom Filt Rate - Afr Amer 284 mL/min (>60); Estimated Creatinine Clearance 185.13 ml/min; Glucose 117 mg/dL (74-106); Potassium 3.5 mmol/L (3.5-5.1); Protein, Total 6.8 g/dL (6.4-8.2); Sodium Level 137 mmol/L (136-145)
[2021-06-17 06:50] LABS: Bedside Glucose 111 mg/dL (74-106)
[2021-06-17] MEDS: Glucerna Shake 120 ML LIQUID PO ×3 (07:58→16:50)
[2021-06-17] MEDS: Fluconazole 100 MG Tablet 200 MG PO (09:31)
[2021-06-17] MEDS: Docusate Sodium 100 MG Capsule PO (09:31)
[2021-06-17] MEDS: Ondansetron 4 MG/2 ML Vial IV (09:58)
[2021-06-17] MEDS: oxyCODONE 5 MG Tablet 10 MG PO ×3 (09:59→23:25)
[2021-06-17] MEDS: 0.9% Saline Lock 10 ML Syringe IV (10:02)
--- NOTE | 2021-06-17 10:14 | PN.ID_ITS ---
Physical Exam Narrative Feeling better, fever broke last night. Throat less sore. New fever blister on upper lip. Const alert and no apparent distress General Appearance: cooperative HEENT HEENT Narrative: No thrush. Grouped vesicles on upper lip Resp normal air movement and clear to auscultation bilaterally Cardio regular rate and regular rhythm GI soft to palpation, non-tender and non-distended Skin no rashes or lesions noted ID ID: Route of nutrition/ use of supplements: [] Nutritional Intake: [] IV Site: [] Villeda Catheter: [] Assessment & Plan Assessment/Plan (1) Febrile neutropenia: PLAN: With persistent enterococcal bacteremia. Fever curve improved, re peat bcx neg so far, remains neutropenic. TTE neg for veg. Was on acyclovir, fluc, and levaquin as prophylaxis at home, but these were not continued here. Now with orolabial HSV, will restart acyclovir at 800mg tid to treat active infection. Cont zosyn and fluconazole. Will follow (2) HSV (herpes simplex virus) infection:
[2021-06-17] MEDS: Insulin Lispro 100 UNIT/ML INSULN.PEN SC ×2 (11:09→16:50)
[2021-06-17 11:16] LABS: Bedside Glucose 187 mg/dL (74-106)
[2021-06-17] MEDS: Acyclovir 800 MG Tablet PO ×2 (12:43→23:26)
--- NOTE | 2021-06-17 15:18 | PN.HOSP_ITS ---
Subjective Subjective Follow-up on febrile neutropenia/malnutrition: Patient was seen and examined. He denied any new complaints. He feels improved. Denies any fever or chills Objective Data Objective Data Vital Signs: Vital Signs Temp Pulse Resp BP Pulse Ox 98.1 F 118 H 20 H 113/72 99 06/17/21 09:34 06/17/21 15:02 06/17/21 09:34 06/17/21 09:34 06/17/21 09:34 Oxygen Delivery Method Room Air Weight: 83.8 kg Body Mass Index (BMI) 28.0 Intake & Output: Intake and Output for Last 24 Hours 06/15/21 06/16/21 06/17/21 23:59 23:59 23:59 Intake Total 630 / 630 1666.5 / 1666.5 1670 / 1670 Output Total 750 / 850 950 / 950 Balance -120 / -220 716.5 / 716.5 1670 / 1670 Medical Nutrition Assessment Dietitian: Malnutrition Criteria Met Start: 06/12/21 17:35 Freq: Status: Active Protocol: Document 06/12/21 17:35 RMA (Rec: 06/12/21 17:35 RMA [id number]) Nutrition Malnutrition Evidence of Malnutrition Exists Yes Malnutrition (severe): Chronic Evidenced By Suboptimal Energy Intake ( Severe),Weight Loss (Severe) Clinical Problem Chronic Disease or Condition Related Malnutrition Etiology Severe protein/calorie malnutrition in the context of chronic disease related to inadequate oral intake/chemo Signs/Symptoms as evidenced by ~20% wt loss x past 6-12 months and PO meeting less than 50% estimated nutrition needs Status Active Problem Recommendation Dietitian Recommendations/Changes Will adjust diet to carbohydrate-controlled with vanilla milkshake at lunch time per pt preference; no raw fruits/vegetables as per patient/family request. Will add 120 ml glucerna shake TID w/ medpass. Adjust ONS as needed to optimize oral intake and prevent further wt loss. Lab / Micro Data Result Diagrams: 06/17/21 06:00 06/17/21 06:00 Labs: Laboratory Results - last 24 hr 06/16/21 16:42: POC Glucose 175 H 06/16/21 21:56: POC Glucose 135 H 06/17/21 06:00: WBC 0.7 L*, RBC 2.38 L, Hgb 7.2 L, Hct 21.3 L, MCV 89.5, MCH 30.3, MCHC 33.8, RDW Std Deviation 46.5 H, RDW Coeff of Jamie 15.1 H, Plt Count 165, MPV 10.1, Immature Gran % (Auto) 1.500 H, Neut % (Auto) 16.1 L, Lymph % (Auto) 70.6 H, Bartholomew % (Auto) 11.8 H, Eos % (Auto) 0.0, Baso % (Auto) 0.0, Absolute Neuts (auto) 0.1 L, Absolute Lymphs (auto) 0.48 L, Nucleated RBC % 0, Differential Comment SCANNED, Diff Path Review July06/17/21 06:00: Sodium 137, Potassium 3.5, Chloride 104, Carbon Dioxide 28.0, Anion Gap 5, BUN 15, Creatinine 0.39 L, Estim Creat Clear Calc 185.13, Est GFR (MDRD) Af Amer 284, Est GFR (MDRD) Non-Af 235, BUN/Creatinine Ratio 38.2 H, Glucose 117 H, Calcium 8.3 L, Total Bilirubin 0.80, AST 20, ALT 17, Alkaline Phosphatase 78, Total Protein 6.8, Albumin 1.8 L, Globulin 5.0 H, Albumin/Globulin Ratio 0.4 L 06/17/21 06:41: POC Glucose 111 H 06/17/21 11:08: POC Glucose 187 H Micro: Microbiology 06/13/21 11:45 Blood Culture (Wb) - Right Wrist Blood Culture - Preliminary Gram Positive Cocci 06/13/21 11:30 Blood Culture (Wb) - Right Hand Blood Culture - Preliminary No growth in 48 hours. 06/12/21 09:36 Blood Culture (Wb) - Anticubital Left Bacteria Detection (PCR) - Final Enterococcus faecalis 06/12/21 09:36 Blood Culture (Wb) - Anticubital Left Blood Culture - Final Enterococcus faecalis 06/12/21 10:40 Blood Culture (Wb) - Anticubital Right Blood Culture - Final GPC Poss Enterococcus sp 06/12/21 11:34 Nasal Secretion SARS-CoV-2 Antigen (Rapid) - Final Physical Exam Narrative Physical exam: General: Alert, Oriented x3, Cooperative, No apparent distress HEENT: Atraumatic Oral: Moist Mucosa, left upper lip Coso Neck: Supple Lungs: Diminished to auscultation at the lung bases Cardiovascular: HS I+II, regular, no murmurs Abdomen: Bowel Sounds Present, Soft, Non Tender Extremities: No edema Assessment & Plan Assessment/Plan (1) Pancytopenia: (2) Febrile neutropenia: PLAN: 1. Acute febrile neutropenia/Enterococcus faecalis bacteremia/left upper lip HSV ANC is 100. Patient remains febrile, remains on IV Zosyn 2D echo showed EF of 55-60% and no evidence of vegetation with grade 1 diastolic dysfunction. Repeat blood cultures(06/16/21) is pending Previous blood cultures 06/13/21 growing gram-positive cocci in chains in 1 out of 2 samples. ID following 2. Lactic acidosis, resolved 3. Pancytopenia, WBC remains about the same History of AML/myelodysplastic syndrome WBC is 0.7 from 0.4. Hb 7.2 Follows with [facility] for chemotherapy 4. Hypokalemia: resolved 5. Rest of chronic medical conditions - Chronic back pain due to spinal stenosis/CAD s/p CABG/Hypertension, remains stable Home meds continued 6. DVT PPx- Lovenox SC Charges/Coding Visit Charges Inpatient E&M: 36965 Subs Hosp L2
[2021-06-17 17:00] LABS: Bedside Glucose 169 mg/dL (74-106)
[2021-06-17] MEDS: Acetaminophen 325 MG Tablet 650 MG PO (18:24)
--- NOTE | 2021-06-17 18:46 | NURSING ---
Reviewed charting with Jaylin Jose RN
[2021-06-17] MEDS: Carvedilol 6.25 MG Tablet PO (22:11)
[2021-06-17 22:40] LABS: Bedside Glucose 141 mg/dL (74-106)
[2021-06-18] VITALS (15 sets, daily range): BP systolic 106–122; BP diastolic 61–93; PULSE 77–97; RESP 16–18; TEMP 36.6–37.7; O2SAT 92–99
[2021-06-18] MEDS: Acyclovir 800 MG Tablet PO ×3 (05:50→21:00)
[2021-06-18 06:36] LABS: Bedside Glucose 140 mg/dL (74-106)
[2021-06-18 07:55] LABS: Absolute Lymphocyte Count 0.57 X10^3/uL (0.83-4.51); Absolute Neutrophil Count 0.2 X10^3/uL (2.0-7.7); Hematocrit 19.1 % (40-54); Hemoglobin 6.4 g/dL (13.0-16.5); Lymphocyte # 0.57 X10^3/ul (0.83-4.51); Lymphocyte % 61.3 % (19-41); Mean Corp Hgb Conc 33.5 g/dL (32-36); Mean Corpuscular Hgb 29.5 pg (27.0-32.0); Mean Platelet Vol. 10.3 fl (6.2-12.0); Monocyte# 0.12 X10^3/uL; Monocyte% 12.9 % (0-10); NRBC Flagged by Analyzer 0 % (0-5); Neutrophil # 0.23 X10^3/uL (2.7-7.7); Neutrophil % 24.7 % (47-70); POSITIVE COUNT YES; POSITIVE DIFFERENTIAL YES; POSITIVE MORPHOLOGY YES; Platelet Count 171 K/mm3 (150-450); RBC Distribution Width CV 15.2 % (11.6-14.6); Red Blood Count 2.17 M/mm3 (4.6-6.2)
[2021-06-18 08:01] LABS: Differential Indicated SCAN CRITERIA MET; White Blood Count 0.9 K/mm3 (4.4-11.0)
[2021-06-18 08:03] LABS: ALB/GLOB Ratio 0.3 RATIO (0.9-2.4); AST(SGOT) 18 U/L (15-37); Alanine Aminotransfer ALT/SGPT 14 U/L (16-61); Albumin, Serum 1.7 g/dL (3.2-5.0); Alkaline Phosphatase 79 U/L (45-117); Anion Gap 6 (5-15); BUN 8 mg/dL (7-18); BUN/Creat Ratio 19.6 RATIO (10-20); Calcium,Total 8.4 mg/dL (8.5-10.1); Chloride 103 mmol/L (98-107); Creatinine, Serum 0.41 mg/dL (0.70-1.30); EST Glomerular Filtration Rate 224 mL/min (>60); Est Glom Filt Rate - Afr Amer 271 mL/min (>60); Glucose 127 mg/dL (74-106); Potassium 3.5 mmol/L (3.5-5.1); Protein, Total 6.7 g/dL (6.4-8.2); Sodium Level 135 mmol/L (136-145)
[2021-06-18 08:33] LABS: Pathologist Review Reviewed
[2021-06-18] MEDS: Glucerna Shake 120 ML LIQUID PO ×3 (08:35→16:55)
[2021-06-18 08:37] LABS: Platelet Estimate ADEQUATE (ADEQ)
[2021-06-18 08:39] LABS: Hypochromasia 1+
[2021-06-18] MEDS: oxyCODONE 5 MG Tablet 10 MG PO ×2 (08:41→17:33)
[2021-06-18] MEDS: Docusate Sodium 100 MG Capsule PO (08:42)
[2021-06-18] MEDS: Carvedilol 6.25 MG Tablet PO ×2 (08:42→21:01)
[2021-06-18] MEDS: Fluconazole 100 MG Tablet 200 MG PO (08:42)
--- NOTE | 2021-06-18 10:50 | PCM.PN.HOSP ---
Subjective Subjective Follow-up on febrile neutropenia: Patient was seen and examined. He is still febrile. T-max 100 F. He however feels improved. Denies any new complaint. No acute events overnight Objective Data Objective Data Vital Signs: Vital Signs Temp Pulse Resp BP Pulse Ox 98 F 93 16 118/68 93 06/18/21 08:54 06/18/21 08:54 06/18/21 08:54 06/18/21 08:54 06/18/21 08:54 Oxygen Delivery Method Room Air Weight: 83.8 kg Body Mass Index (BMI) 28.0 Intake & Output: Intake and Output for Last 24 Hours 06/16/21 06/17/21 06/18/21 23:59 23:59 23:59 Intake Total 1666.5 / 1666.5 2370 / 2370 44.17 / 44.17 Output Total 950 / 950 625 / 625 225 / 225 Balance 716.5 / 716.5 1745 / 1745 -180.83 / -180.83 Medical Nutrition Assessment Dietitian: Malnutrition Criteria Met Start: 06/12/21 17:35 Freq: Status: Active Protocol: Document 06/12/21 17:35 RMA (Rec: 06/12/21 17:35 RMA [id number]) Nutrition Malnutrition Evidence of Malnutrition Exists Yes Malnutrition (severe): Chronic Evidenced By Suboptimal Energy Intake ( Severe),Weight Loss (Severe) Clinical Problem Chronic Disease or Condition Related Malnutrition Etiology Severe protein/calorie malnutrition in the context of chronic disease related to inadequate oral intake/chemo Signs/Symptoms as evidenced by ~20% wt loss x past 6-12 months and PO meeting less than 50% estimated nutrition needs Status Active Problem Recommendation Dietitian Recommendations/Changes Will adjust diet to carbohydrate-controlled with vanilla milkshake at lunch time per pt preference; no raw fruits/vegetables as per patient/family request. Will add 120 ml glucerna shake TID w/ medpass. Adjust ONS as needed to optimize oral intake and prevent further wt loss. Lab / Micro Data Result Diagrams: 06/18/21 07:40 06/18/21 07:40 Labs: Laboratory Results - last 24 hr 06/17/21 06:00: Diff Path Review Reviewed 06/17/21 11:08: POC Glucose 187 H 06/17/21 16:49: POC Glucose 169 H 06/17/21 22:08: POC Glucose 141 H 06/18/21 06:30: POC Glucose 140 H 06/18/21 07:40: WBC 0.9 L*, RBC 2.17 L, Hgb 6.4 L, Hct 19.1 L, MCV 88.0, MCH 29.5, MCHC 33.5, RDW Std Deviation 47.0 H, RDW Coeff of Jamie 15.2 H, Plt Count 171, MPV 10.3, Immature Gran % (Auto) 1.100 H, Neut % (Auto) 24.7 L, Lymph % (Auto) 61.3 H, Wells % (Auto) 12.9 H, Eos % (Auto) 0.0, Baso % (Auto) 0.0, Absolute Neuts (auto) 0.2 L, Absolute Lymphs (auto) 0.57 L, Nucleated RBC % 0, Diff Path Review July, Platelet Estimate ADEQUATE, Hypochromasia 1+ 06/18/21 07:40: Sodium 135 L, Potassium 3.5, Chloride 103, Carbon Dioxide 26.0, Anion Gap 6, BUN 8, Creatinine 0.41 L, Estim Creat Clear Calc 176.10, Est GFR (MDRD) Af Amer 271, Est GFR (MDRD) Non-Af 224, BUN/Creatinine Ratio 19.6, Glucose 127 H, Calcium 8.4 L, Total Bilirubin 1.00, AST 18, ALT 14 L, Alkaline Phosphatase 79, Total Protein 6.7, Albumin 1.7 L, Globulin 5.0 H, Albumin/Globulin Ratio 0.3 L Micro: Microbiology 06/13/21 11:45 Blood Culture (Wb) - Right Wrist Blood Culture - Preliminary Gram Positive Cocci 06/13/21 11:30 Blood Culture (Wb) - Right Hand Blood Culture - Preliminary No growth in 48 hours. 06/12/21 09:36 Blood Culture (Wb) - Anticubital Left Bacteria Detection (PCR) - Final Enterococcus faecalis 06/12/21 09:36 Blood Culture (Wb) - Anticubital Left Blood Culture - Final Enterococcus faecalis 06/12/21 10:40 Blood Culture (Wb) - Anticubital Right Blood Culture - Final GPC Poss Enterococcus sp 06/12/21 11:34 Nasal Secretion SARS-CoV-2 Antigen (Rapid) - Final Physical Exam Narrative Physical exam: General: Alert, Oriented x3, Cooperative, No apparent distress HEENT: Atraumatic Oral: Moist Mucosa, left upper lip Coso Neck: Supple Lungs: Diminished to auscultation at the lung bases Cardiovascular: HS I+II, regular, no murmurs Abdomen: Bowel Sounds Present, Soft, Non Tender Extremities: No edema Assessment & Plan Assessment/Plan (1) Pancytopenia: (2) Febrile neutropenia: PLAN: 1. Acute febrile neutropenia/Enterococcus faecalis bacteremia/left upper lip HSV, slowly imoroving ANC is 200. Patient remains febrile, remains on IV Zosyn 2D echo showed EF of 55-60% and no evidence of vegetation with grade 1 diastolic dysfunction. Repeat blood cultures(06/16/21) is pending Previous blood cultures 06/13/21 growing gram-positive cocci in chains in 1 out of 2 samples. ID following 2. Severe anemia, chronic, likely secondary to anemia of chronic disease Hb is 6.4, will transfuse 2 units of packed RBCs 3. Lactic acidosis, resolved 4. Pancytopenia, WBC remains about the same History of AML/myelodysplastic syndrome WBC is 0.9 from 0.4. Hb 7.2 Follows with [facility] for chemotherapy 5. Hypokalemia: resolved 6. Severe protein-calorie malnutrition, food general manager consulted, continue on supplements 7. Rest of chronic medical conditions - Chronic back pain due to spinal stenosis/CAD s/p CABG/Hypertension, remains stable Home meds continued 8. DVT PPx- Lovenox SC Charges/Coding Visit Charges Inpatient E&M: 54710 Subs Hosp L2
[2021-06-18 11:40] LABS: Bedside Glucose 132 mg/dL (74-106)
--- NOTE | 2021-06-18 11:54 | PCM.PN.ID ---
Physical Exam Narrative Feeling better, still some fever, no abd pain Const alert and no apparent distress General Appearance: cooperative Resp normal air movement and clear to auscultation bilaterally Cardio regular rate and regular rhythm GI soft to palpation, non-tender and non-distended Skin Skin Narrative: vesicles on upper lip ID ID: Route of nutrition/ use of supplements: [] Nutritional Intake: [] IV Site: [] Villeda Catheter: [] Assessment & Plan Assessment/Plan (1) Febrile neutropenia: PLAN: With persistent enterococcal bacteremia. Fever curve improved, repeat bcx neg so far, remains neutropenic. TTE neg for veg. Was on acyclovir, fluc, and levaquin as prophylaxis at home, but these were not continued here. Now with orolabial HSV, 06/17 started acyclovir at 800mg tid to treat active infection. Cont zosyn and fluconazole. Will follow (2) HSV (herpes simplex virus) infection:
[2021-06-18] MEDS: DiphenhydrAMINE 25 MG Capsule PO (14:23)
[2021-06-18] MEDS: Acetaminophen 325 MG Tablet 650 MG PO (14:23)
--- NOTE | 2021-06-18 15:20 | CHAPLAIN ---
Type of Pastoral Visit ___ Initial Visit ___ Follow-up Visit ___ On-call Visit ___ General Patient Visit ___ Spiritual Assessment ___ Family Conference ___ Bereavement ___ Rapid Response ___ Code Blue ___ Other (describe below) Pastoral Care Referral From ___ Patient ___ Family ___ Nurse ___ Physician ___ Vending Machine Servicer ___ [employer] ___ Other (describe below) Sacrament/Intervention ___ Active listening ___ Anointing ___ Orthodox ___ Bereavement ___ Communion ___ Candi exploration ___ ___ Life review ___ Prayer ___ Reconciliation ___ Sacrament of Sick ___ Supportive presence ___ Wedding ___ Other (describe below) Pastoral Comments met with spouse in the hallway and offered presence, support, and prayers; spouse is known to this operations support coordinator and welcomes the spiritual care of the hospital; pt himself is not wanting visits at this time
[2021-06-18 17:01] LABS: Bedside Glucose 141 mg/dL (74-106)
[2021-06-18] MEDS: 0.9% Saline Lock 10 ML Syringe IV (21:00)
[2021-06-18 21:10] LABS: Bedside Glucose 164 mg/dL (74-106)
[2021-06-18 23:35] LABS: Hematocrit 23.6 % (40-54); Hemoglobin 8.4 g/dL (13.0-16.5)
[2021-06-19] VITALS (9 sets, daily range): BP systolic 114–126; BP diastolic 68–83; PULSE 74–95; RESP 16–18; TEMP 36.6–37.7; O2SAT 93–98
[2021-06-19 05:58] LABS: Absolute Lymphocyte Count 0.69 X10^3/uL (0.83-4.51); Absolute Neutrophil Count 0.3 X10^3/uL (2.0-7.7); Hematocrit 22.4 % (40-54); Hemoglobin 7.7 g/dL (13.0-16.5); Lymphocyte # 0.69 X10^3/ul (0.83-4.51); Lymphocyte % 65.7 % (19-41); Mean Corp Hgb Conc 34.4 g/dL (32-36); Mean Corpuscular Hgb 30.1 pg (27.0-32.0); Mean Corpuscular Volume 87.5 fL (80-94); Mean Platelet Vol. 9.8 fl (6.2-12.0); Monocyte# 0.07 X10^3/uL; Monocyte% 6.7 % (0-10); NRBC Flagged by Analyzer 0 % (0-5); Neutrophil # 0.28 X10^3/uL (2.7-7.7); Neutrophil % 26.6 % (47-70); POSITIVE COUNT YES; POSITIVE DIFFERENTIAL YES; POSITIVE MORPHOLOGY YES; Platelet Count 153 K/mm3 (150-450); RBC Distribution Width CV 15.4 % (11.6-14.6); RBC Distribution Width SD 47.1 fl (35.1-43.9); Red Blood Count 2.56 M/mm3 (4.6-6.2)
[2021-06-19 06:00] LABS: Differential Indicated SCAN CRITERIA MET
[2021-06-19 06:01] LABS: White Blood Count 1.1 K/mm3 (4.4-11.0)
[2021-06-19 06:13] LABS: Differential Comment SCANNED
[2021-06-19] MEDS: Acyclovir 800 MG Tablet PO ×3 (06:24→20:33)
[2021-06-19] MEDS: oxyCODONE 5 MG Tablet 10 MG PO ×2 (06:24→16:25)
[2021-06-19 06:32] LABS: Bedside Glucose 127 mg/dL (74-106)
[2021-06-19 06:39] LABS: ALB/GLOB Ratio 0.3 RATIO (0.9-2.4); AST(SGOT) 27 U/L (15-37); Alanine Aminotransfer ALT/SGPT 22 U/L (16-61); Albumin, Serum 1.6 g/dL (3.2-5.0); Alkaline Phosphatase 87 U/L (45-117); Anion Gap 5 (5-15); BUN 8 mg/dL (7-18); Calcium,Total 8.1 mg/dL (8.5-10.1); Chloride 103 mmol/L (98-107); Creatinine, Serum 0.42 mg/dL (0.70-1.30); EST Glomerular Filtration Rate 218 mL/min (>60); Est Glom Filt Rate - Afr Amer 263 mL/min (>60); Globulin 4.9 g/dL (2.2-4.2); Glucose 131 mg/dL (74-106); Potassium 3.5 mmol/L (3.5-5.1); Protein, Total 6.5 g/dL (6.4-8.2); Sodium Level 135 mmol/L (136-145)
[2021-06-19] MEDS: Glucerna Shake 120 ML LIQUID PO ×3 (09:28→16:27)
[2021-06-19] MEDS: Carvedilol 6.25 MG Tablet PO ×2 (09:29→20:33)
[2021-06-19] MEDS: Docusate Sodium 100 MG Capsule PO (09:29)
[2021-06-19] MEDS: 0.9% Saline Lock 10 ML Syringe IV ×2 (09:29→13:08)
[2021-06-19] MEDS: Acetaminophen 325 MG Tablet 650 MG PO (09:30)
--- NOTE | 2021-06-19 10:05 | CASEMGMT ---
Addendum entered by Krista Snider 06/19/21 10:12: Per therapy, pt would benefit from [facility] therapy to be added on. This RN CM to room and pt/ state they are unsure about therapy at this time and would like to wait until pt is home and [facility] SN comes back out to see pt. Pt/ aware to notify CM if they change their mind prior to d/c, voice understanding. Pt/ voice no further questions/concerns/needs. Laisha at [facility] updated, voices understanding. Scar SIERRA CM Original Note: Pt already has EMILY order in for [facility] SN and per Dr. Shaikh, pt will be able to go home on po antibx. CM to follow for further therapy at home. Pt likely to d/c tomorrow, 06/20/21 and Laisha at [facility] aware. Scar SIERRA CM
[2021-06-19] MEDS: Fluconazole 100 MG Tablet 200 MG PO (10:12)
--- NOTE | 2021-06-19 10:28 | PN.ID_ITS ---
Physical Exam Narrative Feeling better, no fever overnight. Nose still sore. Const alert and no apparent distress General Appearance: cooperative Resp normal air movement and clear to auscultation bilaterally Cardio regular rate and regular rhythm GI soft to palpation, non-tender and non-distended Skin Skin Narrative: drying vesicles over upper lip ID ID: Route of nutrition/ use of supplements: [] Nutritional Intake: [] IV Site: [] Villeda Catheter: [] Assessment & Plan Assessment/Plan (1) Febrile neutropenia: PLAN: With enterococcal bacteremia. Fever now resolved repeat bcx neg so far, remains neutropenic. TTE neg for veg. Was on acyclovir, fluc, and levaquin as prophylaxis at home, but these were not continued here. Now with orolabial HSV, 06/17 started acyclovir at 800mg tid to treat active infection. Cont zosyn and fluconazole. If no further fever and counts cont to improve (ANC 300 this AM), may be able to d/c home tomorrow. Would plan on one more week of po linezolid 600mg bid, acyclovir 800mg tid, and fluconazole 200mg daily (would need to extend this course if ANC is not over 1000 by the end of the week). After that point, would resume prior levaquin, acyclovir, and fluc prophylaxis. Will follow, d/w Dr. Arroyo and comp field case manager (2) HSV (herpes simplex virus) infection:
[2021-06-19] MEDS: Insulin Lispro 100 UNIT/ML INSULN.PEN SC ×2 (11:42→21:48)
[2021-06-19 11:51] LABS: Bedside Glucose 185 mg/dL (74-106)
[2021-06-19 11:52] LABS: Pathologist Review Reviewed
[2021-06-19 11:53] LABS: Pathologist Review Reviewed
--- NOTE | 2021-06-19 12:03 | PN.HOSP_ITS ---
Subjective Subjective Follow-up on febrile neutropenia: Patient was seen and examined. He has no fever in 24 hours. Patient feels much improved. Objective Data Objective Data Vital Signs: Vital Signs Temp Pulse Resp BP Pulse Ox 98.2 F 85 18 119/83 H 93 06/19/21 08:45 06/19/21 08:45 06/19/21 08:45 06/19/21 08:45 06/19/21 10:21 Oxygen Delivery Method Room Air Weight: 83.8 kg Body Mass Index (BMI) 28.0 Intake & Output: Intake and Output for Last 24 Hours 06/17/21 06/18/21 06/19/21 23:59 23:59 23:59 Intake Total 2370 / 2370 2284.17 / 2284.17 260 / 260 Output Total 625 / 625 625 / 625 450 / 450 Balance 1745 / 1745 1659.17 / 1659.17 -190 / -190 Medical Nutrition Assessment Dietitian: Malnutrition Criteria Met Start: 06/12/21 17:35 Freq: Status: Active Protocol: Document 06/12/21 17:35 RMA (Rec: 06/12/21 17:35 RMA [id number]) Nutrition Malnutrition Evidence of Malnutrition Exists Yes Malnutrition (severe): Chronic Evidenced By Suboptimal Energy Intake ( Severe),Weight Loss (Severe) Clinical Problem Chronic Disease or Condition Related Malnutrition Etiology Severe protein/calorie malnutrition in the context of chronic disease related to inadequate oral intake/chemo Signs/Symptoms as evidenced by ~20% wt loss x past 6-12 months and PO meeting less than 50% estimated nutrition needs Status Active Problem Recommendation Dietitian Recommendations/Changes Will adjust diet to carbohydrate-controlled with vanilla milkshake at lunch time per pt preference; no raw fruits/vegetables as per patient/family request. Will add 120 ml glucerna shake TID w/ medpass. Adjust ONS as needed to optimize oral intake and prevent further wt loss. Lab / Micro Data Result Diagrams: 06/19/21 05:35 06/19/21 05:35 Labs: Laboratory Results - last 24 hr 06/13/21 11:30: Crossmatch See Detail 06/18/21 07:40: Diff Path Review Reviewed 06/18/21 11:28: Blood Type O POSITIVE, Antibody Screen NEGATIVE, Crossmatch See Detail 06/18/21 16:43: POC Glucose 141 H 06/18/21 21:00: POC Glucose 164 H 06/18/21 23:10: Hgb 8.4 L, Hct 23.6 L 06/19/21 05:35: WBC 1.1 L*, RBC 2.56 L, Hgb 7.7 L, Hct 22.4 L, MCV 87.5, MCH 30.1, MCHC 34.4, RDW Std Deviation 47.1 H, RDW Coeff of Jamie 15.4 H, Plt Count 153, MPV 9.8, Immature Gran % (Auto) 1.000 H, Neut % (Auto) 26.6 L, Lymph % (Auto) 65.7 H, Whitman % (Auto) 6.7, Eos % (Auto) 0.0, Baso % (Auto) 0.0, Absolute Neuts (auto) 0.3 L, Absolute Lymphs (auto) 0.69 L, Nucleated RBC % 0, Diffe rential Comment SCANNED, Diff Path Review Reviewed 06/19/21 05:35: Sodium 135 L, Potassium 3.5, Chloride 103, Carbon Dioxide 27.0, Anion Gap 5, BUN 8, Creatinine 0.42 L, Estim Creat Clear Calc 171.90, Est GFR (MDRD) Af Amer 263, Est GFR (MDRD) Non-Af 218, BUN/Creatinine Ratio 19.0, Glucose 131 H, Calcium 8.1 L, Total Bilirubin 1.10 H, AST 27, ALT 22, Alkaline Phosphatase 87, Total Protein 6.5, Albumin 1.6 L, Globulin 4.9 H, Albumin/Globulin Ratio 0.3 L 06/19/21 06:27: POC Glucose 127 H 06/19/21 11:41: POC Glucose 185 H Micro: Microbiology 06/12/21 10:40 Blood Culture (Wb) - Anticubital Right Blood Culture - Final GPC Poss Enterococcus sp 06/13/21 11:45 Blood Culture (Wb) - Right Wrist Blood Culture - Final GPC Poss Enterococcus sp 06/13/21 11:30 Blood Culture (Wb) - Right Hand Blood Culture - Final No growth in 5 days. 06/16/21 13:33 Blood Culture (Wb) - Anticubital Right Blood Culture - Preliminary No growth in 48 hours. 06/16/21 15:00 Blood Culture (Wb) - Anticubital Left Blood Culture - Preliminary No growth in 48 hours. 06/12/21 09:36 Blood Culture (Wb) - Anticubital Left Bacteria Detection (PCR) - Final Enterococcus faecalis 06/12/21 09:36 Blood Culture (Wb) - Anticubital Left Blood Culture - Final Enterococcus faecalis 06/12/21 11:34 Nasal Secretion SARS-CoV-2 Antigen (Rapid) - Final Physical Exam Narrative Physical exam: General: Alert, Oriented x3, Cooperative, No apparent distress HEENT: Atraumatic Oral: Moist Mucosa, left upper lip cold sores Neck: Supple Lungs: Diminished to auscultation at the lung bases Cardiovascular: HS I+II, regular, no murmurs Abdomen: Bowel Sounds Present, Soft, Non Tender Extremities: No edema Assessment & Plan Assessment/Plan (1) Pancytopenia: (2) Febrile neutropenia: PLAN: 1. Acute febrile neutropenia/Enterococcus faecalis bacteremia/left upper lip HSV, slowly improving ANC is 300. On IV Zosyn 2D echo showed EF of 55-60% and no evidence of vegetation with grade 1 diastolic dysfunction. Repeat blood cultures(06/16/21) is negative Previous blood cultures 06/13/21 growing gram-positive cocci, Enterococcus sp,in 1 out of 2 samples. ID following 2. Severe anemia, chronic, likely secondary to anemia of chronic disease Hb is 7.7, status post 2 units of packed RBCs 3. Lactic acidosis, resolved 4. Pancytopenia, WBC remains about the same History of AML/myelodysplastic syndrome WBC is 1.1 from 0.4. Hb 7.2 Follows with [facility] for chemotherapy 5. Hypokalemia: resolved 6. 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 Rest of chronic medical conditions - Chronic back pain due to spinal stenosis/CAD s/p CABG/Hypertension, remains stable Home meds continued 8. DVT PPx- Lovenox SC Charges/Coding Visit Charges Inpatient E&M: 32908 Subs Hosp L2
[2021-06-19 18:50] LABS: Bedside Glucose 133 mg/dL (74-106)
[2021-06-19 22:01] LABS: Bedside Glucose 155 mg/dL (74-106)
[2021-06-20] VITALS (11 sets, daily range): BP systolic 107–128; BP diastolic 71–82; PULSE 73–90; RESP 18; TEMP 36.6–36.9; O2SAT 95–100
[2021-06-20 05:59] LABS: Absolute Lymphocyte Count 0.63 X10^3/uL (0.83-4.51); Absolute Neutrophil Count 0.3 X10^3/uL (2.0-7.7); Hematocrit 22.5 % (40-54); Hemoglobin 7.6 g/dL (13.0-16.5); Lymphocyte # 0.63 X10^3/ul (0.83-4.51); Lymphocyte % 59.4 % (19-41); Mean Corp Hgb Conc 33.8 g/dL (32-36); Mean Corpuscular Volume 88.9 fL (80-94); Mean Platelet Vol. 9.8 fl (6.2-12.0); Monocyte# 0.06 X10^3/uL; Monocyte% 5.7 % (0-10); NRBC Flagged by Analyzer 0 % (0-5); Neutrophil # 0.28 X10^3/uL (2.7-7.7); Neutrophil % 26.4 % (47-70); POSITIVE COUNT YES; POSITIVE DIFFERENTIAL YES; POSITIVE MORPHOLOGY YES; Platelet Count 151 K/mm3 (150-450); RBC Distribution Width CV 15.1 % (11.6-14.6); RBC Distribution Width SD 46.9 fl (35.1-43.9); Red Blood Count 2.53 M/mm3 (4.6-6.2)
[2021-06-20 06:07] LABS: Differential Indicated SCAN CRITERIA MET
[2021-06-20 06:09] LABS: White Blood Count 1.1 K/mm3 (4.4-11.0)
[2021-06-20 06:17] LABS: Differential Comment SCANNED
[2021-06-20 06:31] LABS: ALB/GLOB Ratio 0.3 RATIO (0.9-2.4); AST(SGOT) 30 U/L (15-37); Alanine Aminotransfer ALT/SGPT 25 U/L (16-61); Albumin, Serum 1.6 g/dL (3.2-5.0); Alkaline Phosphatase 88 U/L (45-117); Anion Gap 4 (5-15); BUN 8 mg/dL (7-18); Chloride 103 mmol/L (98-107); Creatinine, Serum 0.44 mg/dL (0.70-1.30); EST Glomerular Filtration Rate 204 mL/min (>60); Est Glom Filt Rate - Afr Amer 247 mL/min (>60); Estimated Creatinine Clearance 164.09 ml/min; Globulin 5.3 g/dL (2.2-4.2); Glucose 123 mg/dL (74-106); Potassium 3.6 mmol/L (3.5-5.1); Protein, Total 6.9 g/dL (6.4-8.2); Sodium Level 134 mmol/L (136-145)
[2021-06-20] MEDS: Acyclovir 800 MG Tablet PO ×3 (06:40→23:00)
[2021-06-20] MEDS: oxyCODONE 5 MG Tablet 10 MG PO ×2 (06:49→13:54)
[2021-06-20 06:55] LABS: Bedside Glucose 120 mg/dL (74-106)
--- NOTE | 2021-06-20 09:34 | PN.HOSP_ITS ---
Subjective Subjective Follow-up on febrile neutropenia: Patient was seen and examined. No acute events. No fevers seen in 48 hours. He feels improved. Objective Data Objective Data Vital Signs: Vital Signs Temp Pulse Resp BP Pulse Ox 98.4 F 79 18 107/72 95 06/20/21 02:41 06/20/21 07:00 06/20/21 02:41 06/20/21 02:41 06/20/21 08:01 Oxygen Delivery Method Room Air Weight: 83.8 kg Body Mass Index (BMI) 28.0 Intake & Output: Intake and Output for Last 24 Hours 06/18/21 06/19/21 06/20/21 23:59 23:59 23:59 Intake Total 2284.17 / 2284.17 1190 / 1410 620 / 620 Output Total 625 / 625 450 / 700 450 / 450 Balance 1659.17 / 1659.17 740 / 710 170 / 170 Medical Nutrition Assessment Dietitian: Malnutrition Criteria Met Start: 06/12/21 17:35 Freq: Status: Active Protocol: Document 06/12/21 17:35 RMA (Rec: 06/12/21 17:35 RMA [id number]) Nutrition Malnutrition Evidence of Malnutrition Exists Yes Malnutrition (severe): Chronic Evidenced By Suboptimal Energy Intake ( Severe),Weight Loss (Severe) Clinical Problem Chronic Disease or Condition Related Malnutrition Etiology Severe protein/calorie malnutrition in the context of chronic disease related to inadequate oral intake/chemo Signs/Symptoms as evidenced by ~20% wt loss x past 6-12 months and PO meeting less than 50% estimated nutrition needs Status Active Problem Recommendation Dietitian Recommendations/Changes Will adjust diet to carbohydrate-controlled with vanilla milkshake at lunch time per pt preference; no raw fruits/vegetables as per patient/family request. Will add 120 ml glucerna shake TID w/ medpass. Adjust ONS as needed to optimize oral intake and prevent further wt loss. Lab / Micro Data Result Diagrams: 06/20/21 05:52 06/20/21 05:52 Labs: Laboratory Results - last 24 hr 06/18/21 07:40: Diff Path Review Reviewed 06/19/21 05:35: Diff Path Review Reviewed 06/19/21 11:41: POC Glucose 185 H 06/19/21 16:16: POC Glucose 133 H 06/19/21 21:46: POC Glucose 155 H 06/20/21 05:52: WBC 1.1 L*, RBC 2.53 L, Hgb 7.6 L, Hct 22.5 L, MCV 88.9, MCH 30. 0, MCHC 33.8, RDW Std Deviation 46.9 H, RDW Coeff of Jamie 15.1 H, Plt Count 151, MPV 9.8, Immature Gran % (Auto) 8.500 H, Neut % (Auto) 26.4 L, Lymph % (Auto) 59.4 H, Lipscomb % (Auto) 5.7, Eos % (Auto) 0.0, Baso % (Auto) 0.0, Absolute Neuts (auto) 0.3 L, Absolute Lymphs (auto) 0.63 L, Nucleated RBC % 0, Differential Comment SCANNED, Diff Path Review July06/20/21 05:52: Sodium 134 L, Potassium 3.6, Chloride 103, Carbon Dioxide 27.0, Anion Gap 4 L, BUN 8, Creatinine 0.44 L, Estim Creat Clear Calc 164.09, Est GFR (MDRD) Af Amer 247, Est GFR (MDRD) Non-Af 204, BUN/Creatinine Ratio 18.0, Glucose 123 H, Calcium 8.0 L, Total Bilirubin 1.00, AST 30, ALT 25, Alkaline Phosphatase 88, Total Protein 6.9, Albumin 1.6 L, Globulin 5.3 H, Albumin/G lobulin Ratio 0.3 L 06/20/21 06:43: POC Glucose 120 H Micro: Microbiology 06/12/21 10:40 Blood Culture (Wb) - Anticubital Right Blood Culture - Final GPC Poss Enterococcus sp 06/13/21 11:45 Blood Culture (Wb) - Right Wrist Blood Culture - Final GPC Poss Enterococcus sp 06/13/21 11:30 Blood Culture (Wb) - Right Hand Blood Culture - Final No growth in 5 days. 06/16/21 13:33 Blood Culture (Wb) - Anticubital Right Blood Culture - Preliminary No growth in 48 hours. 06/16/21 15:00 Blood Culture (Wb) - Anticubital Left Blood Culture - Preliminary No growth in 48 hours. 06/12/21 09:36 Blood Culture (Wb) - Anticubital Left Bacteria Detection (PCR) - Final Enterococcus faecalis 06/12/21 09:36 Blood Culture (Wb) - Anticubital Left Blood Culture - Final Enterococcus faecalis 06/12/21 11:34 Nasal Secretion SARS-CoV-2 Antigen (Rapid) - Final Physical Exam Narrative Physical exam: General: Alert, Oriented x3, Cooperative, No apparent distress HEENT: Atraumatic Oral: Moist Mucosa, left upper lip cold sores Neck: Supple Lungs: Diminished to auscultation at the lung bases Cardiovascular: HS I+II, regular, no murmurs Abdomen: Bowel Sounds Present, Soft, Non Tender Extremities: No edema Assessment & Plan Assessment/Plan (1) Pancytopenia: (2) Febrile neutropenia: PLAN: 1. Acute febrile neutropenia/Enterococcus faecalis bacteremia/left upper lip HSV, slowly improving ANC is 300. On IV Zosyn 2D echo showed EF of 55-60% and no evidence of vegetation with grade 1 diastolic dysfunction. Repeat blood cultures(06/16/21) is negative Previous blood cultures 06/13/21 growing gram-positive cocci, Enterococcus sp,in 1 out of 2 samples. ID following 2. Severe anemia, chronic, likely secondary to anemia of chronic disease Hb is 7.6, status post 2 units of packed RBCs 3. Lactic acidosis, resolved 4. Pancytopenia, WBC remains about the same History of AML/myelodysplastic syndrome WBC is 1.1 Hb 7.6 Follows with [facility] for chemotherapy 5. Hypokalemia: resolved 6. 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 Rest of chronic medical conditions - Chronic back pain due to spinal stenosis/CAD s/p CABG/Hypertension, remains stable Home meds continued 8. DVT PPx- Lovenox SC Charges/Coding Visit Charges Inpatient E&M: 89621 Subs Hosp L2
[2021-06-20] MEDS: Fluconazole 100 MG Tablet 200 MG PO (10:06)
[2021-06-20] MEDS: Carvedilol 6.25 MG Tablet PO ×2 (10:06→23:00)
[2021-06-20] MEDS: Docusate Sodium 100 MG Capsule PO (10:06)
[2021-06-20 10:44] LABS: Pathologist Review Reviewed
[2021-06-20] MEDS: Insulin Lispro 100 UNIT/ML INSULN.PEN SC ×2 (12:06→16:36)
[2021-06-20 12:16] LABS: Bedside Glucose 189 mg/dL (74-106)
--- NOTE | 2021-06-20 13:03 | PCM.PN.ID ---
Physical Exam Narrative Feeling better, no fever overnight. Nose still sore but improving. No abd pain, no n/v/d. Const alert and no apparent distress General Appearance: cooperative Resp normal air movement and clear to auscultation bilaterally Cardio regular rate and regular rhythm GI soft to palpation, non-tender and non-distended Skin no rashes or lesions noted Skin Narrative: drying vesicles over upper lip ID ID: Route of nutrition/ use of supplements: [] Nutritional Intake: [] IV Site: [] Villeda Catheter: [] Assessment & Plan Assessment/Plan (1) Febrile neutropenia: PLAN: With enterococcal bacteremia. Fever now resolved repeat bcx neg so far, remains neutropenic. TTE neg for veg. Was on acyclovir, fluc, and levaquin as prophylaxis at home, but these were not continued here. Now with orolabial HSV, 06/17 started acyclovir at 800mg tid to treat active infection. Cont zosyn, acyclovir, and fluconazole. Ok for d/c home, would plan on one more week of po linezolid 600mg bid, acyclovir 800mg tid, and fluconazole 200mg daily. Pt with chronic neutropenia, so cannot expect for counts to recover any time soon. After completing these abx, would resume prior levaquin, acyclovir, and fluc prophylaxis. Will follow as needed (2) HSV (herpes simplex virus) infection:
[2021-06-20] MEDS: Acetaminophen 325 MG Tablet 650 MG PO (13:55)
[2021-06-20 16:41] LABS: Bedside Glucose 150 mg/dL (74-106)
[2021-06-20 23:25] LABS: Bedside Glucose 148 mg/dL (74-106)
[2021-06-21 02:36] VITALS: BP 118/74; PULSE 88; RESP 18; TEMP 37.7; O2SAT 94
[2021-06-21 03:00] VITALS: PULSE 88
[2021-06-21 04:38] LABS: Absolute Neutrophil Count 0.4 X10^3/uL (2.0-7.7); Basophil# 0.01 X10^3/uL; Basophil% 0.9 % (0-1); Hematocrit 22.5 % (40-54); Hemoglobin 7.6 g/dL (13.0-16.5); Lymphocyte % 52.6 % (19-41); Mean Corp Hgb Conc 33.8 g/dL (32-36); Mean Corpuscular Hgb 30.2 pg (27.0-32.0); Mean Corpuscular Volume 89.3 fL (80-94); Mean Platelet Vol. 10.4 fl (6.2-12.0); Monocyte# 0.11 X10^3/uL; Monocyte% 9.6 % (0-10); NRBC Flagged by Analyzer 0 % (0-5); Neutrophil # 0.41 X10^3/uL (2.7-7.7); POSITIVE COUNT YES; POSITIVE DIFFERENTIAL YES; POSITIVE MORPHOLOGY YES; Platelet Count 163 K/mm3 (150-450); RBC Distribution Width CV 15.1 % (11.6-14.6); RBC Distribution Width SD 47.5 fl (35.1-43.9); Red Blood Count 2.52 M/mm3 (4.6-6.2)
[2021-06-21 04:45] LABS: Differential Indicated SCAN CRITERIA MET; White Blood Count 1.1 K/mm3 (4.4-11.0)
[2021-06-21 04:59] LABS: Differential Comment SCANNED
[2021-06-21 05:07] LABS: ALB/GLOB Ratio 0.3 RATIO (0.9-2.4); AST(SGOT) 25 U/L (15-37); Alanine Aminotransfer ALT/SGPT 27 U/L (16-61); Albumin, Serum 1.7 g/dL (3.2-5.0); Alkaline Phosphatase 89 U/L (45-117); Anion Gap 7 (5-15); BUN 6 mg/dL (7-18); BUN/Creat Ratio 12.7 RATIO (10-20); Calcium,Total 8.3 mg/dL (8.5-10.1); Chloride 102 mmol/L (98-107); Creatinine, Serum 0.47 mg/dL (0.70-1.30); EST Glomerular Filtration Rate 189 mL/min (>60); Est Glom Filt Rate - Afr Amer 229 mL/min (>60); Estimated Creatinine Clearance 153.62 ml/min; Globulin 5.4 g/dL (2.2-4.2); Glucose 125 mg/dL (74-106); Potassium 3.7 mmol/L (3.5-5.1); Protein, Total 7.1 g/dL (6.4-8.2); Sodium Level 134 mmol/L (136-145)
[2021-06-21] MEDS: Acyclovir 800 MG Tablet PO (06:50)
[2021-06-21 07:00] VITALS: PULSE 82
[2021-06-21] MEDS: oxyCODONE 5 MG Tablet 10 MG PO (07:00)
[2021-06-21 07:16] LABS: Bedside Glucose 140 mg/dL (74-106)
--- NOTE | 2021-06-21 07:31 | PCM.DC ---
Discharge Instructions Diet Discharge Diet: Low fat / Low cholesterol and 2000 mg Sodium Diet Activity Discharge Activity: Return to Normal Activity Follow Up Care Test Results: Test results from this visit will be discussed in further detail at your follow-up appointment, if applicable. Discharge Plan Admission Admit Date/Time: 06/12/21 12:05 Primary Reason for Your Visit: Neutropenic fever Attending Provider: Siri Arroyo Primary Care Provider: Jose Luis Leija Consulting Providers: Pete Shaikh Instructions Additional Instructions / Restrictions: Continue on one more week of po linezolid 600mg 2x/day, acyclovir 800mg 3x/day, and fluconazole 200mg daily. Then, continue with prior levaquin, acyclovir, and fluc prophylaxis. Follow-up with your PCP and oncologist within 1 week Discharge Orders/Prescriptions Prescriptions: New fluconazole 100 mg Tablet 200 mg PO DAILY 7 Days Qty: 14 RF: 0 acyclovir 800 mg Tablet 800 mg PO TID 7 Days Qty: 21 RF: 0 linezolid 600 mg tablet 600 mg PO BID Qty: 14 RF: 0 Continued nitroglycerin [Nitrostat] 0.4 mg tablet, sublingual 0.4 mg SUBLINGUAL Q5M PRN (Reason: Angina) RF: 0 Cepacol Sore Throat (ebony-men) 15-3.6 mg Lozenge 1 ceci mucous membrane Q2H PRN PRN (Reason: SORE THROAT) Qty: 0 RF: 0 allopurinol 300 mg tablet 300 mg PO DAILY RF: 0 levofloxacin 500 mg tablet 500 mg PO DAILY RF: 0 Hold Instructions: Resume on 06/28/21. Docusate Plus 100 mg PO/SL BID RF: 0 sennosides 17.2 mg PO/SL BID RF: 0 metformin 500 mg tablet 500 mg PO BID RF: 0 oxycodone 5 mg tablet 5 mg PO Q8H PRN PRN (Reason: Pain Score 4-10) RF: 0 rosuvastatin [Crestor] 10 mg tablet 10 mg PO DAILY RF: 0 acyclovir 800 mg tablet 800 mg PO BID 7 Days Qty: 21 RF: 0 carvedilol 6.25 mg tablet 6.25 mg PO BID Qty: 180 RF: 3 ranolazine 500 mg tablet extended release 12 hr 500 mg PO DAILY Qty: 90 RF: 3 Referrals / Follow Up: Jose Luis Leija MD [Primary Care Provider] - Within 1 Week Disposition Disposition (needs filled in before D/C Order can be placed): Home, Self Care
[2021-06-21 08:35] VITALS: BP 118/90; PULSE 83; RESP 18; TEMP 37.1; O2SAT 96
[2021-06-21] MEDS: Carvedilol 6.25 MG Tablet PO (08:41)
[2021-06-21] MEDS: Fluconazole 100 MG Tablet 200 MG PO (08:43)
--- NOTE | 2021-06-21 09:31 | PCM.DC.SUM ---
Providers Date of Admission: 06/12/21 Date of Discharge: 06/21/21 Primary Care Physician: Dr. Jose Luis Leija MD Consultations 06/13/21 12:56 Consult: Infectious Disease Routine Consulting Provider: Pete Shaikh Reason for Consult: febrile neutropenia with bacteremia EMERGENT Consult: No Notified: Yes Date Notified: 06/13/21 Time Notified: 12:56 Method of Notification: Verbal Reason For Visit: FEBRILE NEUTROPENIA Diagnosis Discharge Diagnosis (1) Febrile neutropenia: Status: Resolved Code(s): D70.9 - Neutropenia, unspecified; R50.81 - Fever presenting with conditions classified elsewhere (2) HSV (herpes simplex virus) infection: Status: Acute Code(s): B00.9 - Herpesviral infection, unspecified (3) Pancytopenia: Status: Chronic Code(s): D61.818 - Other pancytopenia (4) Severe protein-calorie malnutrition: Status: Acute Code(s): E43 - Unspecified severe protein-calorie malnutrition Medications at Discharge Home Medications nitroglycerin 0.4 mg sublingual tablet 0.4 mg SUBLINGUAL Q5M PRN 05/12/17 carvedilol 6.25 mg tablet 6.25 mg PO BID #180 tab 02/10/21 Cepacol Sore Throat (ebony-men) 1 ceci MUCOUS MEMBRANE Q2H PRN PRN #0 ea 04/17/21 Docusate Plus 100 mg PO/SL BID 05/04/21 allopurinol 300 mg PO DAILY 05/04/21 levofloxacin 500 mg PO DAILY 05/04/21 sennosides 17.2 mg PO/SL BID 05/04/21 ranolazine 500 mg tablet,extended release,12 hr 500 mg PO DAILY #90 tab 05/05/21 metformin 500 mg PO BID 06/12/21 oxycodone 5 mg PO Q8H PRN PRN 06/12/21 rosuvastatin [Crestor] 10 mg PO DAILY 06/12/21 acyclovir 800 mg PO TID 7 Days #21 tab 06/20/21 fluconazole 200 mg PO DAILY 7 Days #14 tab 06/20/21 linezolid 600 mg PO BID #14 tab 06/20/21 acyclovir 800 mg PO BID 7 Days #21 tab 06/21/21 Hospital Course Operations None Procedures None Summary of Care Provided Minutes Spent on Discharge: 35 Hospital Course: 66-year-old male with acute myelogenous leukemia/myelodysplasia, on chemotherapy, follows with [facility] who comes in with generalized weakness, fever and diarrhea. Patient was found to have neutropenia with white cell count of 0.4. His lactic acid was 2.5, potassium 3.3. He was admitted to the PCU and managed as febrile neutropenia. He was kept on IV Zosyn. Patient continued to have spikes of fever. Patient's blood cultures grew Enterococcus. Infectious disease was consulted. 2D echo showed EF of 55-60% and no evidence of vegetation with grade 1 diastolic dysfunction. Patient was not started on Granix because of history of AML. Patient's repeat blood cultures on 06/16/2021 were negative. Patient also had orolabial HSV and was started on acyclovir 800 mg 3 times daily. He was also continued on fluconazole. Patient was discharged on 1 week of linezolid, 600 mg twice daily, 800 mg 3 times daily and fluconazole 200 mg daily. He was supposed to stay on this until his ANC was over 1000 by the end of the week. He was recommended to follow-up with his oncologist or primary care doctor by Wednesday and have a repeat blood counts done. He was then supposed to resume Levaquin, acyclovir and fluconazole prophylaxis after that. Patient has evidence of severe protein calorie malnutrition and was managed on supplements and followed by dietitian during this hospital stay. Physical Exam Narrative Physical exam: General: Alert, Oriented x3, Cooperative, No apparent distress HEENT: Atraumatic Oral: Moist Mucosa, left upper lip cold sores Neck: Supple Lungs: Diminished to auscultation at the lung bases Cardiovascular: HS I+II, regular, no murmurs Abdomen: Bowel Sounds Present, Soft, Non Tender Extremities: No edema Medical Records Data Medical Nutrition Assessment Dietitian: Malnutrition Criteria Met Start: 06/12/21 17:35 Freq: Status: Active Protocol: Document 06/12/21 17:35 RMA (Rec: 06/12/21 17:35 RMA [id number]) Nutrition Malnutrition Evidence of Malnutrition Exists Yes Malnutrition (severe): Chronic Evidenced By Suboptimal Energy Intake ( Severe),Weight Loss (Severe) Clinical Problem Chronic Disease or Condition Related Malnutrition Etiology Severe protein/calorie malnutrition in the context of chronic disease related to inadequate oral intake/chemo Signs/Symptoms as evidenced by ~20% wt loss x past 6-12 months and PO meeting less than 50% estimated nutrition needs Status Active Problem Recommendation Dietitian Recommendations/Changes Will adjust diet to carbohydrate-controlled with vanilla milkshake at lunch time per pt preference; no raw fruits/vegetables as per patient/family request. Will add 120 ml glucerna shake TID w/ medpass. Adjust ONS as needed to optimize oral intake and prevent further wt loss. Weight / BMI Weight Weight: 83.8 kg Body Mass Index (BMI) 28.0 ABG / Lab / Microbiology Data Result Diagrams: 06/21/21 04:01 06/21/21 04:01 Laboratory: Laboratory Results - last 24 hr 06/20/21 05:52: Diff Path Review Reviewed 06/20/21 12:05: POC Glucose 189 H 06/20/21 16:32: POC Glucose 150 H 06/20/21 23:03: POC Glucose 148 H 06/21/21 04:01: WBC 1.1 L*, RBC 2.52 L, Hgb 7.6 L, Hct 22.5 L, MCV 89.3, MCH 30.2, MCHC 33.8, RDW Std Deviation 47.5 H, RDW Coeff of Jamie 15.1 H, Plt Count 163, MPV 10.4, Immature Gran % (Auto) 0.900, Neut % (Auto) 36.0 L, Lymph % (Auto) 52.6 H, [place] % (Auto) 9.6, Eos % (Auto) 0.0, Baso % (Auto) 0.9, Absolute Neuts (auto) 0.4 L, Absolute Lymphs (auto) 0.60 L, Nucleated RBC % 0, Differential Comment SCANNED, Diff Path Review May foll 06/21/21 04:01: Sodium 134 L, Potassium 3.7, Chloride 102, Carbon Dioxide 25.0, Anion Gap 7, BUN 6 L, Creatinine 0.47 L, Estim Creat Clear Calc 153.62, Est GFR (MDRD) Af Amer 229, Est GFR (MDRD) Non-Af 189, BUN/Creatinine Ratio 12.7, Glucose 125 H, Calcium 8.3 L, Total Bilirubin 0.80, AST 25, ALT 27, Alkaline Phosphatase 89, Total Protein 7.1, Albumin 1.7 L, Globulin 5.4 H, Albumin/Globulin Ratio 0.3 L 06/21/21 07:01: POC Glucose 140 H Microbiology: Microbiology 06/12/21 10:40 Blood Culture (Wb) - Anticubital Right Blood Culture - Final GPC Poss Enterococcus sp 06/13/21 11:45 Blood Culture (Wb) - Right Wrist Blood Culture - Final GPC Poss Enterococcus sp 06/13/21 11:30 Blood Culture (Wb) - Right Hand Blood Culture - Final No growth in 5 days. 06/16/21 13:33 Blood Culture (Wb) - Anticubital Right Blood Culture - Preliminary No growth in 48 hours. 06/16/21 15:00 Blood Culture (Wb) - Anticubital Left Blood Culture - Preliminary No growth in 48 hours. 06/12/21 09:36 Blood Culture (Wb) - Anticubital Left Bacteria Detection (PCR) - Final Enterococcus faecalis 06/12/21 09:36 Blood Culture (Wb) - Anticubital Left Blood Culture - Final Enterococcus faecalis 06/12/21 11:34 Nasal Secretion SARS-CoV-2 Antigen (Rapid) - Final D/C Instructions Discharge Diet: Low fat / Low cholesterol and 2000 mg Sodium Diet Meaningful Use Info Meaningful Use Diagnoses (Choose all that apply): None applicable Discharge Plan Admission Admit Date/Time: 06/12/21 12:05 Primary Reason for Your Visit: Neutropenic fever Attending Provider: Siri Arroyo Primary Care Provider: Jose Luis Leija Consulting Providers: Pete Shaikh Instructions Additional Instructions / Restrictions: Continue on one more week of po linezolid 600mg 2x/day, acyclovir 800mg 3x/day, and fluconazole 200mg daily. Then, continue with prior levaquin, acyclovir, and fluc prophylaxis. Follow-up with your PCP and oncologist within 1 week Discharge Orders/Prescriptions Prescriptions: New fluconazole 100 mg Tablet 200 mg PO DAILY 7 Days Qty: 14 RF: 0 acyclovir 800 mg Tablet 800 mg PO TID 7 Days Qty: 21 RF: 0 linezolid 600 mg tablet 600 mg PO BID Qty: 14 RF: 0 Continued nitroglycerin [Nitrostat] 0.4 mg tablet, sublingual 0.4 mg SUBLINGUAL Q5M PRN (Reason: Angina) RF: 0 Cepacol Sore Throat (ebony-men) 15-3.6 mg Lozenge 1 ceci mucous membrane Q2H PRN PRN (Reason: SORE THROAT) Qty: 0 RF: 0 allopurinol 300 mg tablet 300 mg PO DAILY RF: 0 levofloxacin 500 mg tablet 500 mg PO DAILY RF: 0 Hold Instructions: Resume on 06/28/21. Docusate Plus 100 mg PO/SL BID RF: 0 sennosides 17.2 mg PO/SL BID RF: 0 metformin 500 mg tablet 500 mg PO BID RF: 0 oxycodone 5 mg tablet 5 mg PO Q8H PRN PRN (Reason: Pain Score 4-10) RF: 0 rosuvastatin [Crestor] 10 mg tablet 10 mg PO DAILY RF: 0 acyclovir 800 mg tablet 800 mg PO BID 7 Days Qty: 21 RF: 0 carvedilol 6.25 mg tablet 6.25 mg PO BID Qty: 180 RF: 3 ranolazine 500 mg tablet extended release 12 hr 500 mg PO DAILY Qty: 90 RF: 3 Referrals / Follow Up: Jose Luis Leija MD [Primary Care Provider] - Within 1 Week Disposition Disposition (needs filled in before D/C Order can be placed): Home, Self Care Charges/Coding Visit Charges Inpatient E&M: 82464 Disch Hosp
[2021-06-21 11:03] VITALS: BP 118/90; PULSE 83; RESP 18; TEMP 37.1; O2SAT 96
[2021-06-23 12:45] LABS: Pathologist Review Reviewed
== END 2021-06-21 12:54 | disposition home or self-care (01) | DRG 808 ==
LOC: ED 12:00 → PCU 12:10
PROVIDERS: Family Medicine; Nurse Practitioner Family; Admitting Provider Student in an Organized Health Care Education/Training Program; Emergency Provider Emergency Medicine; PCP Family Medicine; Visit Provider Internal Medicine
DX: D61.810 Antineoplastic chemotherapy induced pancytopenia (principal); E43 Unspecified severe protein-calorie malnutrition; C92.00 Acute myeloblastic leukemia, not having achieved remission; R78.81 Bacteremia; E87.2 Acidosis; D63.8 Anemia in other chronic diseases classified elsewhere; E86.0 Dehydration; D46.9 Myelodysplastic syndrome, unspecified; M06.9 Rheumatoid arthritis, unspecified; B00.1 Herpesviral vesicular dermatitis; B95.2 Enterococcus as the cause of diseases classified elsewhere; I25.10 Atherosclerotic heart disease of native coronary artery without angina pectoris; A08.4 Viral intestinal infection, unspecified; E78.5 Hyperlipidemia, unspecified; E87.6 Hypokalemia; I10 Essential (primary) hypertension; I25.5 Ischemic cardiomyopathy; M48.00 Spinal stenosis, site unspecified; I25.2 Old myocardial infarction; R50.81 Fever presenting with conditions classified elsewhere; T45.1X5A Adverse effect of antineoplastic and immunosuppressive drugs, initial encounter; Z20.822 Contact with and (suspected) exposure to COVID-19; Z86.73 Personal history of transient ischemic attack (TIA), and cerebral infarction without residual deficits; Z95.5 Presence of coronary angioplasty implant and graft; Z87.891 Personal history of nicotine dependence; G89.29 Other chronic pain; Z95.1 Presence of aortocoronary bypass graft; Z68.28 Body mass index [BMI] 28.0-28.9, adult
CPT/HCPCS: 36415; 71045; 80048; 80053; 81001; 82962; 83605; 83735; 85014; 85018; 85025; 86850; 86900; 86901; 86920; 86922; 87040; 87149; 87186; 87811; 93306; 94760; 97110; 97161; 97166; 97530; 97535; 97802; 99251; 99285; J7030; J7040; J7120; P9016; P9612; Q9957; A4216; G0463; J2405

== ENCOUNTER 2021-06-25 09:08 | Outpatient (CLI) | payer OTHER, MEDICARE, SELFPAY ==
[2021-06-25 09:25] LABS: Absolute Lymphocyte Count 0.61 X10^3/uL (0.83-4.51); Absolute Neutrophil Count 0.6 X10^3/uL (2.0-7.7); Basophil# 0.01 X10^3/uL; Basophil% 0.7 % (0-1); Hemoglobin 8.1 g/dL (13.0-16.5); Lymphocyte # 0.61 X10^3/ul (0.83-4.51); Lymphocyte % 45.2 % (19-41); Mean Corp Hgb Conc 33.8 g/dL (32-36); Mean Corpuscular Hgb 30.1 pg (27.0-32.0); Mean Corpuscular Volume 89.2 fL (80-94); Monocyte# 0.11 X10^3/uL; Monocyte% 8.1 % (0-10); NRBC Flagged by Analyzer 0 % (0-5); Neutrophil # 0.61 X10^3/uL (2.7-7.7); Neutrophil % 45.3 % (47-70); POSITIVE COUNT YES; POSITIVE DIFFERENTIAL YES; POSITIVE MORPHOLOGY YES; Platelet Count 176 K/mm3 (150-450); RBC Distribution Width CV 14.7 % (11.6-14.6); RBC Distribution Width SD 44.8 fl (35.1-43.9); Red Blood Count 2.69 M/mm3 (4.6-6.2)
[2021-06-25 09:26] LABS: Differential Indicated SCAN CRITERIA MET
[2021-06-25 09:32] LABS: White Blood Count 1.4 K/mm3 (4.4-11.0)
[2021-06-25 09:53] LABS: Reactive Lymphocyte RARE
[2021-06-25 09:54] LABS: ALB/GLOB Ratio 0.3 RATIO (0.9-2.4); AST(SGOT) 18 U/L (15-37); Alanine Aminotransfer ALT/SGPT 21 U/L (16-61); Alkaline Phosphatase 90 U/L (45-117); Anion Gap 6 (5-15); BUN 7 mg/dL (7-18); BUN/Creat Ratio 11.2 RATIO (10-20); Bilirubin, Direct 0.16 mg/dL (0.00-0.30); Calcium,Total 8.9 mg/dL (8.5-10.1); Chloride 103 mmol/L (98-107); Creatinine, Serum 0.63 mg/dL (0.70-1.30); EST Glomerular Filtration Rate 137 mL/min (>60); Est Glom Filt Rate - Afr Amer 166 mL/min (>60); Globulin 5.9 g/dL (2.2-4.2); Glucose 204 mg/dL (74-106); Potassium 3.9 mmol/L (3.5-5.1); Protein, Total 7.9 g/dL (6.4-8.2); Sodium Level 136 mmol/L (136-145)
[2021-06-25 13:53] LABS: Pathologist Review Reviewed
== END 2021-06-25 23:59 | disposition home or self-care (01) ==
LOC: LAB 09:10
PROVIDERS: PCP Family Medicine; Visit Provider Nurse Practitioner Family
DX: C92.00 Acute myeloblastic leukemia, not having achieved remission (principal)
CPT/HCPCS: 36415; 80053; 82248; 85025

== ENCOUNTER → 2021-07-07 | Outpatient (CLI) | payer MEDICARE, SELFPAY ==
[2021-07-07 10:51] LABS: Absolute Lymphocyte Count 0.79 X10^3/uL (0.83-4.51); Absolute Neutrophil Count 0.5 X10^3/uL (2.0-7.7); Basophil# 0.01 X10^3/uL; Basophil% 0.7 % (0-1); Eosinophil# 0.03 X10^3/uL; Eosinophils% 2.2 % (0-5); Hematocrit 21.6 % (40-54); Lymphocyte # 0.79 X10^3/ul (0.83-4.51); Mean Corp Hgb Conc 32.4 g/dL (32-36); Mean Corpuscular Hgb 29.8 pg (27.0-32.0); Mean Corpuscular Volume 91.9 fL (80-94); Mean Platelet Vol. 9.5 fl (6.2-12.0); Monocyte# 0.04 X10^3/uL; NRBC Flagged by Analyzer 0 % (0-5); Neutrophil # 0.47 X10^3/uL (2.7-7.7); Neutrophil % 35.1 % (47-70); POSITIVE COUNT YES; POSITIVE DIFFERENTIAL YES; POSITIVE MORPHOLOGY YES; Platelet Count 54 K/mm3 (150-450); RBC Distribution Width SD 44.4 fl (35.1-43.9); Red Blood Count 2.35 M/mm3 (4.6-6.2)
[2021-07-07 11:00] LABS: Differential Indicated SCAN CRITERIA MET; White Blood Count 1.3 K/mm3 (4.4-11.0)
[2021-07-07 11:27] LABS: ALB/GLOB Ratio 0.5 RATIO (0.9-2.4); AST(SGOT) 16 U/L (15-37); Alanine Aminotransfer ALT/SGPT 15 U/L (16-61); Albumin, Serum 2.5 g/dL (3.2-5.0); Alkaline Phosphatase 99 U/L (45-117); Anion Gap 5 (5-15); BUN 7 mg/dL (7-18); BUN/Creat Ratio 11.3 RATIO (10-20); Calcium,Total 8.7 mg/dL (8.5-10.1); Chloride 102 mmol/L (98-107); Creatinine, Serum 0.62 mg/dL (0.70-1.30); EST Glomerular Filtration Rate 139 mL/min (>60); Est Glom Filt Rate - Afr Amer 168 mL/min (>60); Globulin 5.1 g/dL (2.2-4.2); Glucose 160 mg/dL (74-106); Potassium 3.9 mmol/L (3.5-5.1); Protein, Total 7.6 g/dL (6.4-8.2); Sodium Level 135 mmol/L (136-145)
[2021-07-07 11:39] LABS: Platelet Estimate SLT DEC (ADEQ); Red Cell Morphology NORM C+C NORMAL (NORM C&C)
[2021-07-09 13:11] LABS: Pathologist Review Reviewed
== END | disposition home or self-care (01) ==
LOC: LAB 03:48
PROVIDERS: PCP Family Medicine; Visit Provider Nurse Practitioner Family
DX: C92.60 Acute myeloid leukemia with 11q23-abnormality not having achieved remission (principal)
CPT/HCPCS: 36415; 80053; 82248; 85025

== ENCOUNTER → 2021-07-08 | Outpatient (CLI) | payer MEDICARE, SELFPAY ==
[2021-07-08 08:16] VITALS: BP 115/76; PULSE 81; RESP 16; TEMP 36.6; O2SAT 100
[2021-07-08] MEDS: DiphenhydrAMINE 25 MG Capsule PO (08:20)
[2021-07-08] MEDS: Acetaminophen 325 MG Tablet 650 MG PO (08:20)
[2021-07-08 08:52] VITALS: BP 129/73; PULSE 74; RESP 12; TEMP 36.6; O2SAT 100
[2021-07-08 09:52] VITALS: BP 120/73; PULSE 67; RESP 16; TEMP 36.3; O2SAT 100
[2021-07-08 11:05] VITALS: BP 134/87; PULSE 70; RESP 12; TEMP 36.4; O2SAT 100
[2021-07-08 11:34] VITALS: BP 134/87; PULSE 70; RESP 12; TEMP 36.4; O2SAT 100
== END | disposition home or self-care (01) ==
LOC: MEDOUTP 07:52
PROVIDERS: PCP Family Medicine
DX: D46.9 Myelodysplastic syndrome, unspecified (principal)
CPT/HCPCS: 36430; 86850; 86900; 86901; 86920; 86922; J7040; P9016; A4216

== ENCOUNTER → 2021-07-10 | Outpatient (CLI) | payer MEDICARE, SELFPAY ==
[2021-07-10 10:45] LABS: Absolute Lymphocyte Count 0.86 X10^3/uL (0.83-4.51); Absolute Neutrophil Count 0.2 X10^3/uL (2.0-7.7); Basophil# 0.01 X10^3/uL; Basophil% 0.9 % (0-1); Eosinophil# 0.06 X10^3/uL; Eosinophils% 5.4 % (0-5); Hematocrit 23.2 % (40-54); Hemoglobin 7.9 g/dL (13.0-16.5); Lymphocyte # 0.86 X10^3/ul (0.83-4.51); Lymphocyte % 77.5 % (19-41); Mean Corp Hgb Conc 34.1 g/dL (32-36); Mean Corpuscular Hgb 30.2 pg (27.0-32.0); Mean Corpuscular Volume 88.5 fL (80-94); Mean Platelet Vol. 9.9 fl (6.2-12.0); Monocyte# 0.03 X10^3/uL; Monocyte% 2.7 % (0-10); NRBC Flagged by Analyzer 0 % (0-5); Neutrophil # 0.15 X10^3/uL (2.7-7.7); Neutrophil % 13.5 % (47-70); POSITIVE COUNT YES; POSITIVE DIFFERENTIAL YES; POSITIVE MORPHOLOGY YES; Platelet Count 20 K/mm3 (150-450); RBC Distribution Width CV 14.6 % (11.6-14.6); RBC Distribution Width SD 42.9 fl (35.1-43.9); Red Blood Count 2.62 M/mm3 (4.6-6.2); White Blood Count 1.1 K/mm3 (4.4-11.0)
[2021-07-10 10:47] LABS: Differential Indicated SCAN CRITERIA MET
[2021-07-10 11:05] LABS: ALB/GLOB Ratio 0.5 RATIO (0.9-2.4); AST(SGOT) 22 U/L (15-37); Alanine Aminotransfer ALT/SGPT 14 U/L (16-61); Albumin, Serum 2.5 g/dL (3.2-5.0); Alkaline Phosphatase 112 U/L (45-117); Anion Gap 3 (5-15); BUN 8 mg/dL (7-18); BUN/Creat Ratio 13.3 RATIO (10-20); Calcium,Total 8.7 mg/dL (8.5-10.1); Chloride 106 mmol/L (98-107); EST Glomerular Filtration Rate 144 mL/min (>60); Est Glom Filt Rate - Afr Amer 174 mL/min (>60); Globulin 4.9 g/dL (2.2-4.2); Glucose 188 mg/dL (74-106); Potassium 4.2 mmol/L (3.5-5.1); Protein, Total 7.4 g/dL (6.4-8.2); Sodium Level 137 mmol/L (136-145)
[2021-07-14 09:01] LABS: Pathologist Review Reviewed
== END | disposition home or self-care (01) ==
LOC: LAB 08:49
PROVIDERS: PCP Family Medicine
DX: D46.9 Myelodysplastic syndrome, unspecified (principal)
CPT/HCPCS: 36415; 80053; 85025

== ENCOUNTER → 2021-07-11 | Outpatient (CLI) | payer MEDICARE, SELFPAY ==
[2021-07-11 08:17] VITALS: BP 103/71; PULSE 72; RESP 16; TEMP 36.1; O2SAT 100
[2021-07-11] MEDS: DiphenhydrAMINE 25 MG Capsule PO (11:42)
[2021-07-11] MEDS: Acetaminophen 325 MG Tablet 650 MG PO (11:42)
[2021-07-11 12:00] VITALS: BP 105/75; PULSE 78; RESP 16; TEMP 36.2; O2SAT 100
[2021-07-11 12:22] VITALS: BP 110/66; PULSE 68; RESP 16; TEMP 36.2; O2SAT 98
[2021-07-11 13:20] VITALS: BP 124/76; PULSE 68; RESP 16; TEMP 36; O2SAT 100
[2021-07-11 14:20] VITALS: BP 126/76; PULSE 65; RESP 16; TEMP 35.9
[2021-07-11 15:10] VITALS: BP 139/72; PULSE 69; RESP 16; TEMP 35.9; O2SAT 99
== END | disposition home or self-care (01) ==
LOC: MEDOUTP 07:54
PROVIDERS: PCP Family Medicine
DX: D46.9 Myelodysplastic syndrome, unspecified (principal)
CPT/HCPCS: 36430; 86644; 86850; 86900; 86901; 86920; 86965; J7030; P9035; P9040; A4216

== ENCOUNTER → 2021-07-14 | Outpatient (CLI) | payer MEDICARE, SELFPAY ==
[2021-07-14 09:35] LABS: Absolute Lymphocyte Count 0.92 X10^3/uL (0.83-4.51); Eosinophil# 0.03 X10^3/uL; Eosinophils% 3.1 % (0-5); Hematocrit 24.6 % (40-54); Hemoglobin 8.2 g/dL (13.0-16.5); Lymphocyte # 0.92 X10^3/ul (0.83-4.51); Lymphocyte % 93.9 % (19-41); Mean Corp Hgb Conc 33.3 g/dL (32-36); Mean Corpuscular Hgb 29.4 pg (27.0-32.0); Mean Corpuscular Volume 88.2 fL (80-94); Monocyte# 0.01 X10^3/uL; NRBC Flagged by Analyzer 7.1 % (0-5); Neutrophil # 0.02 X10^3/uL (2.7-7.7); POSITIVE COUNT YES; POSITIVE DIFFERENTIAL YES; POSITIVE MORPHOLOGY YES; RBC Distribution Width CV 14.2 % (11.6-14.6); RBC Distribution Width SD 41.8 fl (35.1-43.9); Red Blood Count 2.79 M/mm3 (4.6-6.2)
[2021-07-14 09:46] LABS: ALB/GLOB Ratio 0.6 RATIO (0.9-2.4); AST(SGOT) 15 U/L (15-37); Alanine Aminotransfer ALT/SGPT 15 U/L (16-61); Albumin, Serum 2.6 g/dL (3.2-5.0); Alkaline Phosphatase 98 U/L (45-117); Anion Gap 5 (5-15); BUN 8 mg/dL (7-18); BUN/Creat Ratio 14.3 RATIO (10-20); Calcium,Total 8.6 mg/dL (8.5-10.1); Chloride 105 mmol/L (98-107); Creatinine, Serum 0.56 mg/dL (0.70-1.30); EST Glomerular Filtration Rate 156 mL/min (>60); Est Glom Filt Rate - Afr Amer 188 mL/min (>60); Globulin 4.7 g/dL (2.2-4.2); Glucose 165 mg/dL (74-106); Potassium 3.8 mmol/L (3.5-5.1); Protein, Total 7.3 g/dL (6.4-8.2); Sodium Level 139 mmol/L (136-145)
[2021-07-14 09:57] LABS: Differential Indicated SCAN CRITERIA MET; Platelet Count 10 K/mm3 (150-450)
[2021-07-14 10:54] LABS: Platelet Estimate MKD DEC (ADEQ)
[2021-07-15 11:18] LABS: Pathologist Review Reviewed
== END | disposition home or self-care (01) ==
LOC: LAB 04:10
PROVIDERS: PCP Family Medicine
DX: D46.9 Myelodysplastic syndrome, unspecified (principal)
CPT/HCPCS: 36415; 80053; 85025; 86900; 86901

== ENCOUNTER → 2021-07-15 | Outpatient (CLI) | payer MEDICARE, SELFPAY ==
[2021-07-15 09:03] VITALS: BP 121/66; PULSE 84; RESP 16; TEMP 36.5; O2SAT 97
[2021-07-15] MEDS: 0.9% NaCl Peripheral Flush Adult/Peds IV (09:13)
[2021-07-15] MEDS: Acetaminophen 325 MG Tablet 650 MG PO (09:20)
[2021-07-15] MEDS: DiphenhydrAMINE 25 MG Capsule PO (09:20)
[2021-07-15] MEDS: 0.9% Normal Saline 1,000 ML 15 ML IV (09:22)
[2021-07-15 09:54] VITALS: BP 102/71; PULSE 68; RESP 16; TEMP 36.3
== END | disposition home or self-care (01) ==
PROVIDERS: PCP Family Medicine
DX: D46.9 Myelodysplastic syndrome, unspecified (principal)
CPT/HCPCS: 36430; 86644; 86900; 86901; 86965; J7030; P9035; A4216

== ENCOUNTER → 2021-07-17 | Outpatient (CLI) | payer MEDICARE, SELFPAY ==
[2021-07-17 11:59] LABS: Absolute Lymphocyte Count 0.91 X10^3/uL (0.83-4.51); Eosinophil# 0.02 X10^3/uL; Eosinophils% 2.1 % (0-5); Hematocrit 23.7 % (40-54); Lymphocyte # 0.91 X10^3/ul (0.83-4.51); Lymphocyte % 94.8 % (19-41); Mean Corp Hgb Conc 33.8 g/dL (32-36); Mean Corpuscular Hgb 30.1 pg (27.0-32.0); Mean Corpuscular Volume 89.1 fL (80-94); Mean Platelet Vol. 10.6 fl (6.2-12.0); Monocyte# 0.02 X10^3/uL; Monocyte% 2.1 % (0-10); NRBC Flagged by Analyzer 0 % (0-5); Neutrophil # 0.01 X10^3/uL (2.7-7.7); POSITIVE COUNT YES; POSITIVE DIFFERENTIAL YES; POSITIVE MORPHOLOGY YES; Platelet Count 13 K/mm3 (150-450); RBC Distribution Width SD 42.5 fl (35.1-43.9); Red Blood Count 2.66 M/mm3 (4.6-6.2)
[2021-07-17 12:02] LABS: Differential Indicated SCAN CRITERIA MET
[2021-07-17 12:05] LABS: ALB/GLOB Ratio 0.6 RATIO (0.9-2.4); AST(SGOT) 17 U/L (15-37); Alanine Aminotransfer ALT/SGPT 16 U/L (16-61); Albumin, Serum 2.8 g/dL (3.2-5.0); Alkaline Phosphatase 101 U/L (45-117); Anion Gap 6 (5-15); BUN 6 mg/dL (7-18); Chloride 105 mmol/L (98-107); EST Glomerular Filtration Rate 144 mL/min (>60); Est Glom Filt Rate - Afr Amer 174 mL/min (>60); Globulin 4.7 g/dL (2.2-4.2); Glucose 151 mg/dL (74-106); Potassium 3.9 mmol/L (3.5-5.1); Protein, Total 7.5 g/dL (6.4-8.2); Sodium Level 138 mmol/L (136-145)
[2021-07-17 12:38] LABS: Differential Comment SCANNED; Platelet Estimate MKD DEC (ADEQ)
[2021-07-18 13:24] LABS: Pathologist Review Reviewed
== END | disposition home or self-care (01) ==
PROVIDERS: PCP Family Medicine
DX: D46.9 Myelodysplastic syndrome, unspecified (principal)
CPT/HCPCS: 36415; 80053; 85025; 86850; 86900; 86901; 86920

== ENCOUNTER → 2021-07-18 | Outpatient (CLI) | payer MEDICARE, SELFPAY ==
[2021-07-18] MEDS: 0.9% NaCl Peripheral Flush Adult/Peds IV (08:49)
[2021-07-18] MEDS: DiphenhydrAMINE 25 MG Capsule PO (08:52)
[2021-07-18] MEDS: Acetaminophen 325 MG Tablet 650 MG PO (08:52)
[2021-07-18 08:53] VITALS: BP 98/62; PULSE 74; RESP 16; TEMP 36.3; O2SAT 98
[2021-07-18 09:27] VITALS: BP 100/62; PULSE 70; RESP 12; TEMP 36.5; O2SAT 99
[2021-07-18 10:00] VITALS: BP 100/65; PULSE 64; RESP 16; TEMP 36.3
[2021-07-18 10:36] VITALS: BP 90/56; PULSE 60; RESP 12; TEMP 36.4; O2SAT 94
[2021-07-18 11:36] VITALS: BP 110/64; PULSE 60; RESP 16; TEMP 36.3; O2SAT 100
[2021-07-18 12:13] VITALS: BP 114/68; PULSE 63; RESP 16; TEMP 36.2; O2SAT 98
== END | disposition home or self-care (01) ==
LOC: MEDOUTP 08:31
PROVIDERS: PCP Family Medicine
DX: D46.9 Myelodysplastic syndrome, unspecified (principal)
CPT/HCPCS: 36430; 86850; 86900; 86901; 86920; 86965; J7040; P9035; P9040; A4216

== ENCOUNTER → 2021-07-29 | Outpatient (CLI) | payer MEDICARE, SELFPAY ==
[2021-07-29 10:17] LABS: Absolute Lymphocyte Count 0.47 X10^3/uL (0.83-4.51); Absolute Neutrophil Count 0.3 X10^3/uL (2.0-7.7); Hemoglobin 7.2 g/dL (13.0-16.5); Lymphocyte # 0.47 X10^3/ul (0.83-4.51); Lymphocyte % 56.6 % (19-41); Mean Corp Hgb Conc 32.7 g/dL (32-36); Mean Corpuscular Hgb 30.1 pg (27.0-32.0); Mean Corpuscular Volume 92.1 fL (80-94); Mean Platelet Vol. 10.2 fl (6.2-12.0); Monocyte# 0.05 X10^3/uL; NRBC Flagged by Analyzer 0 % (0-5); Neutrophil # 0.26 X10^3/uL (2.7-7.7); Neutrophil % 31.4 % (47-70); POSITIVE COUNT YES; POSITIVE DIFFERENTIAL YES; POSITIVE MORPHOLOGY YES; Platelet Count 134 K/mm3 (150-450); RBC Distribution Width CV 18.9 % (11.6-14.6); RBC Distribution Width SD 52.9 fl (35.1-43.9); Red Blood Count 2.39 M/mm3 (4.6-6.2); White Blood Count 0.8 K/mm3 (4.4-11.0)
[2021-07-29 10:21] LABS: Differential Indicated SCAN CRITERIA MET
[2021-07-29 10:30] LABS: ALB/GLOB Ratio 0.4 RATIO (0.9-2.4); AST(SGOT) 161 U/L (15-37); Alanine Aminotransfer ALT/SGPT 151 U/L (16-61); Albumin, Serum 2.2 g/dL (3.2-5.0); Alkaline Phosphatase 129 U/L (45-117); Anion Gap 6 (5-15); BUN 15 mg/dL (7-18); BUN/Creat Ratio 24.4 RATIO (10-20); Chloride 99 mmol/L (98-107); Creatinine, Serum 0.62 mg/dL (0.70-1.30); EST Glomerular Filtration Rate 140 mL/min (>60); Est Glom Filt Rate - Afr Amer 169 mL/min (>60); Globulin 5.5 g/dL (2.2-4.2); Glucose 188 mg/dL (74-106); Potassium 3.7 mmol/L (3.5-5.1); Protein, Total 7.7 g/dL (6.4-8.2); Sodium Level 133 mmol/L (136-145)
[2021-07-29 10:48] LABS: Anisocytosis 2+; Hypochromasia 1+
[2021-07-29 12:51] LABS: Pathologist Review Reviewed
== END | disposition home or self-care (01) ==
LOC: LAB 08:26
PROVIDERS: PCP Family Medicine; Visit Provider Internal Medicine Hematology
DX: D46.9 Myelodysplastic syndrome, unspecified (principal)
CPT/HCPCS: 36415; 80053; 85025; 86850; 86900; 86901; 86920; 86922

== ENCOUNTER → 2021-07-30 | Outpatient (CLI) | payer MEDICARE, SELFPAY ==
[2021-07-30] MEDS: DiphenhydrAMINE 25 MG Capsule PO (08:23)
[2021-07-30] MEDS: Acetaminophen 325 MG Tablet 650 MG PO (08:23)
[2021-07-30] MEDS: 0.9% NaCl Peripheral Flush Adult/Peds IV (08:23)
[2021-07-30 08:30] VITALS: BP 117/70; PULSE 76; RESP 16; TEMP 35.7; O2SAT 99
[2021-07-30 09:02] VITALS: BP 88/60; PULSE 71; RESP 12; TEMP 35.7; O2SAT 98
[2021-07-30 10:02] VITALS: BP 100/63; PULSE 68; RESP 12; TEMP 35.7; O2SAT 97
[2021-07-30 10:46] VITALS: BP 108/65; PULSE 62; RESP 12; TEMP 35.5; O2SAT 99
== END | disposition home or self-care (01) ==
LOC: MEDOUTP 08:07
PROVIDERS: PCP Family Medicine; Referring Provider Internal Medicine Hematology; Visit Provider Internal Medicine Hematology
DX: D46.9 Myelodysplastic syndrome, unspecified (principal)
CPT/HCPCS: 36430; 86850; 86900; 86901; 86920; 86922; J7030; P9040; A4216

== ENCOUNTER → 2021-08-05 | Outpatient (CLI) | payer MEDICARE, SELFPAY ==
[2021-08-05 10:37] LABS: Absolute Neutrophil Count 1.4 X10^3/uL (2.0-7.7); Basophil# 0.01 X10^3/uL; Basophil% 0.4 % (0-1); Hematocrit 28.3 % (40-54); Hemoglobin 9.2 g/dL (13.0-16.5); Mean Corp Hgb Conc 32.5 g/dL (32-36); Mean Corpuscular Hgb 30.3 pg (27.0-32.0); Mean Corpuscular Volume 93.1 fL (80-94); Mean Platelet Vol. 9.8 fl (6.2-12.0); Monocyte# 0.19 X10^3/uL; Monocyte% 6.9 % (0-10); NRBC Flagged by Analyzer 0 % (0-5); Neutrophil # 1.43 X10^3/uL (2.7-7.7); POSITIVE MORPHOLOGY YES; Platelet Count 212 K/mm3 (150-450); RBC Distribution Width CV 17.9 % (11.6-14.6); RBC Distribution Width SD 55.5 fl (35.1-43.9); Red Blood Count 3.04 M/mm3 (4.6-6.2); White Blood Count 2.8 K/mm3 (4.4-11.0)
[2021-08-05 10:53] LABS: ALB/GLOB Ratio 0.4 RATIO (0.9-2.4); AST(SGOT) 39 U/L (15-37); Alanine Aminotransfer ALT/SGPT 88 U/L (16-61); Albumin, Serum 2.2 g/dL (3.2-5.0); Alkaline Phosphatase 115 U/L (45-117); Anion Gap 7 (5-15); BUN 7 mg/dL (7-18); BUN/Creat Ratio 12.9 RATIO (10-20); Calcium,Total 9.4 mg/dL (8.5-10.1); Chloride 101 mmol/L (98-107); Creatinine, Serum 0.54 mg/dL (0.70-1.30); EST Glomerular Filtration Rate 162 mL/min (>60); Est Glom Filt Rate - Afr Amer 196 mL/min (>60); Globulin 5.7 g/dL (2.2-4.2); Glucose 121 mg/dL (74-106); Potassium 3.9 mmol/L (3.5-5.1); Protein, Total 7.9 g/dL (6.4-8.2); Sodium Level 134 mmol/L (136-145)
[2021-08-05 11:03] LABS: Differential Indicated SCAN CRITERIA MET
[2021-08-05 11:34] LABS: Anisocytosis 1+; Platelet Estimate ADEQUATE (ADEQ)
== END | disposition home or self-care (01) ==
LOC: LAB 04:22
PROVIDERS: PCP Family Medicine; Visit Provider Internal Medicine Hematology
DX: D46.9 Myelodysplastic syndrome, unspecified (principal)
CPT/HCPCS: 36415; 80053; 85025

== ENCOUNTER → 2021-08-13 | Outpatient (CLI) | payer MEDICARE, SELFPAY ==
[2021-08-13 09:18] LABS: Absolute Lymphocyte Count 1.03 X10^3/uL (0.83-4.51); Absolute Neutrophil Count 2.2 X10^3/uL (2.0-7.7); Basophil# 0.03 X10^3/uL; Basophil% 0.9 % (0-1); Eosinophil# 0.01 X10^3/uL; Eosinophils% 0.3 % (0-5); Hematocrit 28.4 % (40-54); Hemoglobin 8.9 g/dL (13.0-16.5); Lymphocyte # 1.03 X10^3/ul (0.83-4.51); Lymphocyte % 30.2 % (19-41); Mean Corp Hgb Conc 31.3 g/dL (32-36); Mean Corpuscular Hgb 30.4 pg (27.0-32.0); Mean Corpuscular Volume 96.9 fL (80-94); Mean Platelet Vol. 8.6 fl (6.2-12.0); Monocyte# 0.13 X10^3/uL; Monocyte% 3.8 % (0-10); NRBC Flagged by Analyzer 0 % (0-5); Neutrophil # 2.19 X10^3/uL (2.7-7.7); Neutrophil % 64.2 % (47-70); POSITIVE MORPHOLOGY YES; Platelet Count 243 K/mm3 (150-450); Red Blood Count 2.93 M/mm3 (4.6-6.2); White Blood Count 3.4 K/mm3 (4.4-11.0)
[2021-08-13 09:19] LABS: Differential Indicated SCAN CRITERIA MET
[2021-08-13 09:35] LABS: Anion Gap 8 (5-15); BUN 9 mg/dL (7-18); BUN/Creat Ratio 14.2 RATIO (10-20); Calcium,Total 9.1 mg/dL (8.5-10.1); Chloride 99 mmol/L (98-107); Creatinine, Serum 0.63 mg/dL (0.70-1.30); EST Glomerular Filtration Rate 136 mL/min (>60); Est Glom Filt Rate - Afr Amer 164 mL/min (>60); Glucose 155 mg/dL (74-106); Potassium 3.7 mmol/L (3.5-5.1); Sodium Level 136 mmol/L (136-145)
[2021-08-13 09:47] LABS: Reactive Lymphocyte 1+
== END | disposition home or self-care (01) ==
LOC: LAB 04:50
PROVIDERS: PCP Family Medicine; Visit Provider Nurse Practitioner Family
DX: D46.9 Myelodysplastic syndrome, unspecified (principal)
CPT/HCPCS: 36415; 80048; 85025

== ENCOUNTER → 2021-08-14 | Outpatient (CLI) | payer MEDICARE, SELFPAY | END | disposition home or self-care (01) | LOC: MEDOUTP 08:03 | PROVIDERS: PCP Family Medicine; Referring Provider Nurse Practitioner Family; Visit Provider Nurse Practitioner Family | DX: Z45.2 Encounter for adjustment and management of vascular access device (principal); D46.9 Myelodysplastic syndrome, unspecified | CPT/HCPCS: 96523; A4216 ==

== ENCOUNTER → 2021-08-20 | Outpatient (CLI) | payer MEDICARE, SELFPAY ==
[2021-08-20 10:14] LABS: Absolute Lymphocyte Count 1.11 X10^3/uL (0.83-4.51); Absolute Neutrophil Count 1.4 X10^3/uL (2.0-7.7); Basophil# 0.02 X10^3/uL; Basophil% 0.8 % (0-1); Eosinophil# 0.08 X10^3/uL; Hematocrit 25.9 % (40-54); Hemoglobin 8.1 g/dL (13.0-16.5); Lymphocyte # 1.11 X10^3/ul (0.83-4.51); Lymphocyte % 41.9 % (19-41); Mean Corp Hgb Conc 31.3 g/dL (32-36); Mean Corpuscular Hgb 30.6 pg (27.0-32.0); Mean Corpuscular Volume 97.7 fL (80-94); Mean Platelet Vol. 9.5 fl (6.2-12.0); Monocyte# 0.05 X10^3/uL; Monocyte% 1.9 % (0-10); NRBC Flagged by Analyzer 0 % (0-5); Neutrophil # 1.37 X10^3/uL (2.7-7.7); Neutrophil % 51.6 % (47-70); POSITIVE COUNT YES; POSITIVE MORPHOLOGY YES; Platelet Count 78 K/mm3 (150-450); RBC Distribution Width CV 18.5 % (11.6-14.6); RBC Distribution Width SD 62.7 fl (35.1-43.9); Red Blood Count 2.65 M/mm3 (4.6-6.2); White Blood Count 2.7 K/mm3 (4.4-11.0)
[2021-08-20 10:23] LABS: Differential Indicated SCAN CRITERIA MET
[2021-08-20 10:28] LABS: Anion Gap 8 (5-15); BUN 6 mg/dL (7-18); BUN/Creat Ratio 8.6 RATIO (10-20); Calcium,Total 9.3 mg/dL (8.5-10.1); Chloride 104 mmol/L (98-107); EST Glomerular Filtration Rate 121 mL/min (>60); Est Glom Filt Rate - Afr Amer 146 mL/min (>60); Glucose 183 mg/dL (74-106); Potassium 3.6 mmol/L (3.5-5.1); Sodium Level 137 mmol/L (136-145)
[2021-08-20 11:01] LABS: Anisocytosis 2+; Platelet Estimate MOD DEC (ADEQ); Red Cell Morphology N CHROM NORMAL (NORM C&C)
== END | disposition home or self-care (01) ==
LOC: LAB 06:07
PROVIDERS: PCP Family Medicine; Visit Provider Nurse Practitioner Family
DX: D46.9 Myelodysplastic syndrome, unspecified (principal)
CPT/HCPCS: 36415; 80048; 85025

== ENCOUNTER → 2021-08-21 | Outpatient (CLI) | payer MEDICARE, SELFPAY | END | disposition home or self-care (01) | LOC: MEDOUTP 07:53 | PROVIDERS: PCP Family Medicine; Referring Provider Nurse Practitioner Family; Visit Provider Nurse Practitioner Family | DX: D46.9 Myelodysplastic syndrome, unspecified (principal) | CPT/HCPCS: 96523; A4216 ==

== ENCOUNTER → 2021-08-28 | Outpatient (CLI) | payer MEDICARE, SELFPAY ==
[2021-08-28 08:30] LABS: Absolute Neutrophil Count 0.2 X10^3/uL (2.0-7.7); Eosinophil# 0.12 X10^3/uL; Eosinophils% 7.9 % (0-5); Hematocrit 24.8 % (40-54); Lymphocyte % 79.5 % (19-41); Mean Corp Hgb Conc 32.3 g/dL (32-36); Mean Corpuscular Hgb 31.9 pg (27.0-32.0); Mean Corpuscular Volume 98.8 fL (80-94); Mean Platelet Vol. 10.4 fl (6.2-12.0); Monocyte# 0.03 X10^3/uL; NRBC Flagged by Analyzer 0 % (0-5); Neutrophil # 0.16 X10^3/uL (2.7-7.7); Neutrophil % 10.6 % (47-70); POSITIVE DIFFERENTIAL YES; POSITIVE MORPHOLOGY YES; Platelet Count 116 K/mm3 (150-450); RBC Distribution Width CV 21.2 % (11.6-14.6); RBC Distribution Width SD 72.4 fl (35.1-43.9); Red Blood Count 2.51 M/mm3 (4.6-6.2); White Blood Count 1.5 K/mm3 (4.4-11.0)
[2021-08-28 08:31] LABS: Differential Indicated SCAN CRITERIA MET
[2021-08-28 08:43] LABS: ALB/GLOB Ratio 0.6 RATIO (0.9-2.4); AST(SGOT) 12 U/L (15-37); Alanine Aminotransfer ALT/SGPT 12 U/L (16-61); Albumin, Serum 2.7 g/dL (3.2-5.0); Alkaline Phosphatase 102 U/L (45-117); Anion Gap 6 (5-15); BUN 7 mg/dL (7-18); BUN/Creat Ratio 10.3 RATIO (10-20); Calcium,Total 9.2 mg/dL (8.5-10.1); Chloride 107 mmol/L (98-107); Creatinine, Serum 0.68 mg/dL (0.70-1.30); EST Glomerular Filtration Rate 125 mL/min (>60); Est Glom Filt Rate - Afr Amer 151 mL/min (>60); Globulin 4.7 g/dL (2.2-4.2); Glucose 173 mg/dL (74-106); Potassium 3.6 mmol/L (3.5-5.1); Protein, Total 7.4 g/dL (6.4-8.2); Sodium Level 140 mmol/L (136-145)
[2021-08-28 09:02] LABS: Anisocytosis 1+
[2021-08-28 09:03] LABS: Hypochromasia 1+
[2021-08-28 16:23] LABS: Xtra Tube EP Lab EXTRA TUBE
[2021-08-29 12:10] LABS: Pathologist Review Reviewed
== END | disposition home or self-care (01) ==
LOC: MEDOUTP 08:00
PROVIDERS: PCP Family Medicine; Referring Provider Nurse Practitioner Family; Visit Provider Nurse Practitioner Family
DX: Z45.2 Encounter for adjustment and management of vascular access device (principal); D64.9 Anemia, unspecified
CPT/HCPCS: 36592; 80053; 85025; 86850; 86900; 86901; 86920; 86922; A4216

== ENCOUNTER → 2021-08-29 | Outpatient (CLI) | payer MEDICARE, SELFPAY ==
[2021-08-29] MEDS: DiphenhydrAMINE 25 MG Capsule PO (08:05)
[2021-08-29] MEDS: Acetaminophen 325 MG Tablet 650 MG PO (08:06)
[2021-08-29 08:07] VITALS: BP 105/69; PULSE 76; RESP 14; TEMP 36.3; O2SAT 100; BMI 26.3
[2021-08-29] MEDS: 0.9% NaCl Peripheral Flush Adult/Peds IV ×2 (08:11→10:52)
[2021-08-29 08:44] VITALS: BP 99/65; PULSE 71; RESP 16; TEMP 36.2; O2SAT 100
[2021-08-29 09:44] VITALS: BP 102/69; PULSE 67; RESP 16; TEMP 36.3
[2021-08-29 10:47] VITALS: BP 101/68; PULSE 65; RESP 16; TEMP 36.3
== END | disposition home or self-care (01) ==
LOC: MEDOUTP 07:58
PROVIDERS: PCP Family Medicine; Referring Provider Internal Medicine Hematology; Visit Provider Internal Medicine Hematology
DX: D46.9 Myelodysplastic syndrome, unspecified (principal)
CPT/HCPCS: 36430; 86850; 86900; 86901; 86920; 86922; J7030; P9040; A4216

== ENCOUNTER → 2021-09-11 | Outpatient (CLI) | payer MEDICARE, SELFPAY ==
[2021-09-11 09:19] LABS: Absolute Lymphocyte Count 1.37 X10^3/uL (0.83-4.51); Absolute Neutrophil Count 1.4 X10^3/uL (2.0-7.7); Basophil# 0.03 X10^3/uL; Basophil% 0.9 % (0-1); Eosinophil# 0.05 X10^3/uL; Eosinophils% 1.5 % (0-5); Hematocrit 29.6 % (40-54); Hemoglobin 9.3 g/dL (13.0-16.5); Lymphocyte # 1.37 X10^3/ul (0.83-4.51); Mean Corp Hgb Conc 31.4 g/dL (32-36); Mean Corpuscular Hgb 32.4 pg (27.0-32.0); Mean Corpuscular Volume 103.1 fL (80-94); Mean Platelet Vol. 9.2 fl (6.2-12.0); Monocyte# 0.51 X10^3/uL; Monocyte% 15.3 % (0-10); NRBC Flagged by Analyzer 0 % (0-5); Neutrophil # 1.36 X10^3/uL (2.7-7.7); Neutrophil % 40.7 % (47-70); POSITIVE MORPHOLOGY YES; Platelet Count 221 K/mm3 (150-450); RBC Distribution Width CV 20.6 % (11.6-14.6); RBC Distribution Width SD 76.3 fl (35.1-43.9); Red Blood Count 2.87 M/mm3 (4.6-6.2); White Blood Count 3.3 K/mm3 (4.4-11.0)
[2021-09-11 09:22] LABS: Differential Indicated SCAN CRITERIA MET
[2021-09-11 09:36] LABS: ALB/GLOB Ratio 0.6 RATIO (0.9-2.4); AST(SGOT) 15 U/L (15-37); Alanine Aminotransfer ALT/SGPT 12 U/L (16-61); Albumin, Serum 2.9 g/dL (3.2-5.0); Alkaline Phosphatase 96 U/L (45-117); Anion Gap 6 (5-15); BUN 10 mg/dL (7-18); Calcium,Total 9.5 mg/dL (8.5-10.1); Chloride 104 mmol/L (98-107); Creatinine, Serum 0.72 mg/dL (0.70-1.30); EST Glomerular Filtration Rate 118 mL/min (>60); Est Glom Filt Rate - Afr Amer 142 mL/min (>60); Globulin 4.8 g/dL (2.2-4.2); Glucose 150 mg/dL (74-106); Potassium 3.7 mmol/L (3.5-5.1); Protein, Total 7.7 g/dL (6.4-8.2); Sodium Level 138 mmol/L (136-145)
[2021-09-11 09:42] LABS: Anisocytosis 1+; Reactive Lymphocyte 1+
== END | disposition home or self-care (01) ==
LOC: MEDOUTP 08:02
PROVIDERS: PCP Family Medicine; Referring Provider Nurse Practitioner Family; Visit Provider Nurse Practitioner Family
DX: D46.9 Myelodysplastic syndrome, unspecified (principal)
CPT/HCPCS: 36592; 80053; 85025; A4216

== ENCOUNTER → 2021-09-25 | Outpatient (CLI) | payer MEDICARE, SELFPAY ==
[2021-09-25 08:40] LABS: Absolute Lymphocyte Count 1.37 X10^3/uL (0.83-4.51); Absolute Neutrophil Count 3.2 X10^3/uL (2.0-7.7); Basophil# 0.03 X10^3/uL; Basophil% 0.6 % (0-1); Eosinophil# 0.12 X10^3/uL; Eosinophils% 2.4 % (0-5); Hematocrit 29.5 % (40-54); Hemoglobin 9.4 g/dL (13.0-16.5); Lymphocyte # 1.37 X10^3/ul (0.83-4.51); Lymphocyte % 27.6 % (19-41); Mean Corp Hgb Conc 31.9 g/dL (32-36); Mean Corpuscular Volume 103.5 fL (80-94); Mean Platelet Vol. 8.9 fl (6.2-12.0); Monocyte# 0.19 X10^3/uL; Monocyte% 3.8 % (0-10); NRBC Flagged by Analyzer 0 % (0-5); Neutrophil # 3.22 X10^3/uL (2.7-7.7); POSITIVE MORPHOLOGY YES; Platelet Count 183 K/mm3 (150-450); RBC Distribution Width CV 18.9 % (11.6-14.6); RBC Distribution Width SD 71.9 fl (35.1-43.9); Red Blood Count 2.85 M/mm3 (4.6-6.2)
[2021-09-25 08:41] LABS: Differential Indicated SCAN CRITERIA MET
[2021-09-25 08:56] LABS: ALB/GLOB Ratio 0.6 RATIO (0.9-2.4); AST(SGOT) 18 U/L (15-37); Alanine Aminotransfer ALT/SGPT 15 U/L (16-61); Albumin, Serum 2.9 g/dL (3.2-5.0); Alkaline Phosphatase 99 U/L (45-117); Anion Gap 8 (5-15); BUN 10 mg/dL (7-18); Calcium,Total 9.4 mg/dL (8.5-10.1); Chloride 103 mmol/L (98-107); Creatinine, Serum 0.71 mg/dL (0.70-1.30); EST Glomerular Filtration Rate 118 mL/min (>60); Est Glom Filt Rate - Afr Amer 143 mL/min (>60); Globulin 4.6 g/dL (2.2-4.2); Glucose 188 mg/dL (74-106); Potassium 3.6 mmol/L (3.5-5.1); Protein, Total 7.5 g/dL (6.4-8.2); Sodium Level 138 mmol/L (136-145)
[2021-09-25 09:06] LABS: Anisocytosis 1+
[2021-09-25 16:37] LABS: Xtra Tube EP Lab EXTRA TUBE
== END | disposition home or self-care (01) ==
LOC: MEDOUTP 07:57
PROVIDERS: PCP Family Medicine; Referring Provider Nurse Practitioner Family; Visit Provider Nurse Practitioner Family
DX: D46.9 Myelodysplastic syndrome, unspecified (principal)
CPT/HCPCS: 36592; 80053; 85025; A4216

== ENCOUNTER → 2021-10-02 | Outpatient (CLI) | payer MEDICARE, SELFPAY ==
[2021-10-02 09:05] LABS: Absolute Lymphocyte Count 1.55 X10^3/uL (0.83-4.51); Absolute Neutrophil Count 2.8 X10^3/uL (2.0-7.7); Basophil# 0.04 X10^3/uL; Basophil% 0.8 % (0-1); Eosinophil# 0.34 X10^3/uL; Eosinophils% 6.9 % (0-5); Hematocrit 27.1 % (40-54); Hemoglobin 9.1 g/dL (13.0-16.5); Lymphocyte # 1.55 X10^3/ul (0.83-4.51); Lymphocyte % 31.4 % (19-41); Mean Corp Hgb Conc 33.6 g/dL (32-36); Mean Corpuscular Hgb 34.1 pg (27.0-32.0); Mean Corpuscular Volume 101.5 fL (80-94); Mean Platelet Vol. 10.7 fl (6.2-12.0); Monocyte# 0.17 X10^3/uL; Monocyte% 3.4 % (0-10); NRBC Flagged by Analyzer 0 % (0-5); Neutrophil % 56.7 % (47-70); POSITIVE COUNT YES; POSITIVE MORPHOLOGY YES; Platelet Count 61 K/mm3 (150-450); RBC Distribution Width CV 18.7 % (11.6-14.6); RBC Distribution Width SD 68.8 fl (35.1-43.9); Red Blood Count 2.67 M/mm3 (4.6-6.2); White Blood Count 4.9 K/mm3 (4.4-11.0)
[2021-10-02 09:06] LABS: Differential Indicated SCAN CRITERIA MET
[2021-10-02 09:16] LABS: ALB/GLOB Ratio 0.7 RATIO (0.9-2.4); AST(SGOT) 16 U/L (15-37); Alanine Aminotransfer ALT/SGPT 16 U/L (16-61); Albumin, Serum 3.1 g/dL (3.2-5.0); Alkaline Phosphatase 105 U/L (45-117); Anion Gap 8 (5-15); BUN 11 mg/dL (7-18); Calcium,Total 9.4 mg/dL (8.5-10.1); Chloride 103 mmol/L (98-107); Creatinine, Serum 0.73 mg/dL (0.70-1.30); EST Glomerular Filtration Rate 114 mL/min (>60); Est Glom Filt Rate - Afr Amer 138 mL/min (>60); Globulin 4.5 g/dL (2.2-4.2); Glucose 154 mg/dL (74-106); Potassium 3.6 mmol/L (3.5-5.1); Protein, Total 7.6 g/dL (6.4-8.2); Sodium Level 138 mmol/L (136-145)
[2021-10-02 09:22] LABS: Anisocytosis 1+; Platelet Estimate MOD DEC (ADEQ)
== END | disposition home or self-care (01) ==
LOC: MEDOUTP 08:12
PROVIDERS: PCP Family Medicine; Referring Provider Nurse Practitioner Family; Visit Provider Nurse Practitioner Family
DX: Z45.2 Encounter for adjustment and management of vascular access device (principal); D46.9 Myelodysplastic syndrome, unspecified
CPT/HCPCS: 36592; 80053; 85025; A4216

== ENCOUNTER → 2021-10-09 | Outpatient (CLI) | payer MEDICARE, SELFPAY ==
[2021-10-09 08:45] LABS: Absolute Lymphocyte Count 1.22 X10^3/uL (0.83-4.51); Absolute Neutrophil Count 0.5 X10^3/uL (2.0-7.7); Basophil# 0.01 X10^3/uL; Basophil% 0.5 % (0-1); Differential Indicated SCAN CRITERIA MET; Eosinophils% 10.1 % (0-5); Hematocrit 26.6 % (40-54); Hemoglobin 8.7 g/dL (13.0-16.5); Lymphocyte # 1.22 X10^3/ul (0.83-4.51); Lymphocyte % 61.6 % (19-41); Mean Corp Hgb Conc 32.7 g/dL (32-36); Mean Corpuscular Hgb 34.1 pg (27.0-32.0); Mean Corpuscular Volume 104.3 fL (80-94); Mean Platelet Vol. 9.3 fl (6.2-12.0); Monocyte# 0.03 X10^3/uL; Monocyte% 1.5 % (0-10); NRBC Flagged by Analyzer 0 % (0-5); Neutrophil # 0.51 X10^3/uL (2.7-7.7); Neutrophil % 25.8 % (47-70); POSITIVE COUNT YES; POSITIVE DIFFERENTIAL YES; POSITIVE MORPHOLOGY YES; Platelet Count 97 K/mm3 (150-450); RBC Distribution Width CV 19.1 % (11.6-14.6); RBC Distribution Width SD 73.8 fl (35.1-43.9); Red Blood Count 2.55 M/mm3 (4.6-6.2)
[2021-10-09 08:58] LABS: ALB/GLOB Ratio 0.7 RATIO (0.9-2.4); AST(SGOT) 14 U/L (15-37); Alanine Aminotransfer ALT/SGPT 16 U/L (16-61); Albumin, Serum 2.9 g/dL (3.2-5.0); Alkaline Phosphatase 102 U/L (45-117); Anion Gap 4 (5-15); BUN 9 mg/dL (7-18); BUN/Creat Ratio 12.7 RATIO (10-20); Chloride 105 mmol/L (98-107); Creatinine, Serum 0.71 mg/dL (0.70-1.30); EST Glomerular Filtration Rate 118 mL/min (>60); Est Glom Filt Rate - Afr Amer 143 mL/min (>60); Globulin 4.1 g/dL (2.2-4.2); Glucose 159 mg/dL (74-106); Potassium 3.8 mmol/L (3.5-5.1); Sodium Level 138 mmol/L (136-145)
[2021-10-09 16:40] LABS: Xtra Tube EP Lab EXTRA TUBE
== END | disposition home or self-care (01) ==
LOC: MEDOUTP 08:07
PROVIDERS: PCP Family Medicine; Referring Provider Nurse Practitioner Family; Visit Provider Nurse Practitioner Family
DX: Z45.2 Encounter for adjustment and management of vascular access device (principal); D46.9 Myelodysplastic syndrome, unspecified
CPT/HCPCS: 36592; 80053; 85025; A4216

== ENCOUNTER → 2021-10-16 | Outpatient (CLI) | payer MEDICARE, SELFPAY ==
[2021-10-16 09:07] LABS: Absolute Lymphocyte Count 1.11 X10^3/uL (0.83-4.51); Absolute Neutrophil Count 0.2 X10^3/uL (2.0-7.7); Basophil# 0.02 X10^3/uL; Basophil% 1.4 % (0-1); Eosinophil# 0.09 X10^3/uL; Eosinophils% 6.2 % (0-5); Hematocrit 28.9 % (40-54); Hemoglobin 9.2 g/dL (13.0-16.5); Lymphocyte # 1.11 X10^3/ul (0.83-4.51); Lymphocyte % 76.6 % (19-41); Mean Corp Hgb Conc 31.8 g/dL (32-36); Mean Corpuscular Hgb 34.3 pg (27.0-32.0); Mean Corpuscular Volume 107.8 fL (80-94); Mean Platelet Vol. 9.3 fl (6.2-12.0); Monocyte# 0.06 X10^3/uL; Monocyte% 4.1 % (0-10); NRBC Flagged by Analyzer 0 % (0-5); Neutrophil # 0.17 X10^3/uL (2.7-7.7); Neutrophil % 11.7 % (47-70); POSITIVE COUNT YES; POSITIVE DIFFERENTIAL YES; POSITIVE MORPHOLOGY YES; Platelet Count 273 K/mm3 (150-450); RBC Distribution Width SD 71.7 fl (35.1-43.9); Red Blood Count 2.68 M/mm3 (4.6-6.2); White Blood Count 1.5 K/mm3 (4.4-11.0)
[2021-10-16 09:09] LABS: Differential Indicated SCAN CRITERIA MET
[2021-10-16 09:28] LABS: Anisocytosis 1+
[2021-10-16 09:29] LABS: ALB/GLOB Ratio 0.7 RATIO (0.9-2.4); AST(SGOT) 15 U/L (15-37); Alanine Aminotransfer ALT/SGPT 14 U/L (16-61); Alkaline Phosphatase 113 U/L (45-117); Anion Gap 8 (5-15); BUN 12 mg/dL (7-18); BUN/Creat Ratio 15.6 RATIO (10-20); Calcium,Total 9.9 mg/dL (8.5-10.1); Chloride 103 mmol/L (98-107); Creatinine, Serum 0.77 mg/dL (0.70-1.30); EST Glomerular Filtration Rate 109 mL/min (>60); Est Glom Filt Rate - Afr Amer 131 mL/min (>60); Globulin 4.6 g/dL (2.2-4.2); Glucose 166 mg/dL (74-106); Potassium 3.9 mmol/L (3.5-5.1); Protein, Total 7.6 g/dL (6.4-8.2); Sodium Level 138 mmol/L (136-145)
[2021-10-16 17:04] LABS: Xtra Tube EP Lab EXTRA TUBE
== END | disposition home or self-care (01) ==
LOC: MEDOUTP 08:22
PROVIDERS: PCP Family Medicine; Referring Provider Nurse Practitioner Family; Visit Provider Nurse Practitioner Family
DX: Z45.2 Encounter for adjustment and management of vascular access device (principal); D46.9 Myelodysplastic syndrome, unspecified
CPT/HCPCS: 36592; 80053; 85025; A4216

== ENCOUNTER → 2021-10-23 | Outpatient (CLI) | payer MEDICARE, SELFPAY ==
[2021-10-23 08:52] LABS: Absolute Lymphocyte Count 1.63 X10^3/uL (0.83-4.51); Absolute Neutrophil Count 1.6 X10^3/uL (2.0-7.7); Basophil# 0.01 X10^3/uL; Basophil% 0.3 % (0-1); Hematocrit 32.6 % (40-54); Hemoglobin 10.4 g/dL (13.0-16.5); Lymphocyte # 1.63 X10^3/ul (0.83-4.51); Lymphocyte % 45.8 % (19-41); Mean Corp Hgb Conc 31.9 g/dL (32-36); Mean Corpuscular Hgb 33.5 pg (27.0-32.0); Mean Corpuscular Volume 105.2 fL (80-94); Mean Platelet Vol. 9.2 fl (6.2-12.0); Monocyte# 0.32 X10^3/uL; NRBC Flagged by Analyzer 0 % (0-5); Neutrophil # 1.58 X10^3/uL (2.7-7.7); Neutrophil % 44.3 % (47-70); POSITIVE MORPHOLOGY YES; Platelet Count 322 K/mm3 (150-450); RBC Distribution Width CV 17.3 % (11.6-14.6); RBC Distribution Width SD 67.7 fl (35.1-43.9); White Blood Count 3.6 K/mm3 (4.4-11.0)
[2021-10-23 08:54] LABS: Differential Indicated SCAN CRITERIA MET
[2021-10-23 09:04] LABS: ALB/GLOB Ratio 0.7 RATIO (0.9-2.4); AST(SGOT) 15 U/L (15-37); Alanine Aminotransfer ALT/SGPT 19 U/L (16-61); Albumin, Serum 3.2 g/dL (3.2-5.0); Alkaline Phosphatase 106 U/L (45-117); Anion Gap 7 (5-15); BUN 14 mg/dL (7-18); Calcium,Total 9.4 mg/dL (8.5-10.1); Chloride 107 mmol/L (98-107); EST Glomerular Filtration Rate 120 mL/min (>60); Est Glom Filt Rate - Afr Amer 146 mL/min (>60); Globulin 4.4 g/dL (2.2-4.2); Glucose 175 mg/dL (74-106); Potassium 3.7 mmol/L (3.5-5.1); Protein, Total 7.6 g/dL (6.4-8.2); Sodium Level 140 mmol/L (136-145)
[2021-10-23 09:24] LABS: Anisocytosis 2+; Differential Comment SCANNED
[2021-10-23 16:48] LABS: Xtra Tube EP Lab EXTRA TUBE
== END | disposition home or self-care (01) ==
LOC: MEDOUTP 08:13
PROVIDERS: PCP Family Medicine; Referring Provider Nurse Practitioner Family; Visit Provider Nurse Practitioner Family
DX: Z45.2 Encounter for adjustment and management of vascular access device (principal); D46.9 Myelodysplastic syndrome, unspecified
CPT/HCPCS: 36592; 80053; 85025; A4216

== ENCOUNTER → 2021-11-06 | Outpatient (CLI) | payer MEDICARE, SELFPAY ==
[2021-11-06 08:45] LABS: Absolute Lymphocyte Count 2.17 X10^3/uL (0.83-4.51); Absolute Neutrophil Count 3.9 X10^3/uL (2.0-7.7); Basophil# 0.02 X10^3/uL; Basophil% 0.3 % (0-1); Eosinophil# 0.11 X10^3/uL; Eosinophils% 1.7 % (0-5); Hematocrit 32.8 % (40-54); Hemoglobin 10.6 g/dL (13.0-16.5); Lymphocyte # 2.17 X10^3/ul (0.83-4.51); Lymphocyte % 33.6 % (19-41); Mean Corp Hgb Conc 32.3 g/dL (32-36); Mean Corpuscular Hgb 34.8 pg (27.0-32.0); Mean Corpuscular Volume 107.5 fL (80-94); Mean Platelet Vol. 8.8 fl (6.2-12.0); Monocyte# 0.19 X10^3/uL; Monocyte% 2.9 % (0-10); NRBC Flagged by Analyzer 0 % (0-5); Neutrophil # 3.92 X10^3/uL (2.7-7.7); Neutrophil % 60.7 % (47-70); POSITIVE MORPHOLOGY YES; Platelet Count 158 K/mm3 (150-450); RBC Distribution Width CV 17.5 % (11.6-14.6); RBC Distribution Width SD 70.7 fl (35.1-43.9); Red Blood Count 3.05 M/mm3 (4.6-6.2); White Blood Count 6.5 K/mm3 (4.4-11.0)
[2021-11-06 08:46] LABS: Differential Indicated SCAN CRITERIA MET
[2021-11-06 09:02] LABS: ALB/GLOB Ratio 0.9 RATIO (0.9-2.4); AST(SGOT) 16 U/L (15-37); Alanine Aminotransfer ALT/SGPT 26 U/L (16-61); Albumin, Serum 3.1 g/dL (3.2-5.0); Alkaline Phosphatase 148 U/L (45-117); Anion Gap 10 (5-15); BUN 14 mg/dL (7-18); BUN/Creat Ratio 22.4 RATIO (10-20); Calcium,Total 8.8 mg/dL (8.5-10.1); Chloride 107 mmol/L (98-107); Creatinine, Serum 0.62 mg/dL (0.70-1.30); EST Glomerular Filtration Rate 137 mL/min (>60); Est Glom Filt Rate - Afr Amer 166 mL/min (>60); Globulin 3.5 g/dL (2.2-4.2); Glucose 173 mg/dL (74-106); Potassium 3.6 mmol/L (3.5-5.1); Protein, Total 6.6 g/dL (6.4-8.2); Sodium Level 142 mmol/L (136-145)
[2021-11-06 09:14] LABS: Anisocytosis 1+
[2021-11-06 16:41] LABS: Xtra Tube EP Lab EXTRA TUBE
== END | disposition home or self-care (01) ==
LOC: MEDOUTP 08:04
PROVIDERS: PCP Family Medicine; Referring Provider Nurse Practitioner Family; Visit Provider Nurse Practitioner Family
DX: D46.9 Myelodysplastic syndrome, unspecified (principal)
CPT/HCPCS: 36592; 80053; 85025; A4216

== ENCOUNTER → 2021-11-13 | Outpatient (CLI) | payer MEDICARE, SELFPAY ==
[2021-11-13 09:08] LABS: Absolute Lymphocyte Count 1.62 X10^3/uL (0.83-4.51); Absolute Neutrophil Count 1.5 X10^3/uL (2.0-7.7); Basophil# 0.01 X10^3/uL; Basophil% 0.3 % (0-1); Eosinophil# 0.16 X10^3/uL; Eosinophils% 4.7 % (0-5); Hematocrit 30.6 % (40-54); Lymphocyte # 1.62 X10^3/ul (0.83-4.51); Lymphocyte % 48.1 % (19-41); Mean Corp Hgb Conc 32.7 g/dL (32-36); Mean Corpuscular Hgb 34.8 pg (27.0-32.0); Mean Corpuscular Volume 106.6 fL (80-94); Mean Platelet Vol. 8.9 fl (6.2-12.0); Monocyte# 0.09 X10^3/uL; Monocyte% 2.7 % (0-10); NRBC Flagged by Analyzer 0 % (0-5); Neutrophil # 1.46 X10^3/uL (2.7-7.7); Neutrophil % 43.3 % (47-70); POSITIVE COUNT YES; POSITIVE MORPHOLOGY YES; RBC Distribution Width CV 17.5 % (11.6-14.6); RBC Distribution Width SD 67.5 fl (35.1-43.9); Red Blood Count 2.87 M/mm3 (4.6-6.2); White Blood Count 3.4 K/mm3 (4.4-11.0)
[2021-11-13 09:19] LABS: Differential Indicated SCAN CRITERIA MET; Platelet Count 42 K/mm3 (150-450)
[2021-11-13 09:20] LABS: ALB/GLOB Ratio 0.8 RATIO (0.9-2.4); AST(SGOT) 15 U/L (15-37); Alanine Aminotransfer ALT/SGPT 23 U/L (16-61); Alkaline Phosphatase 127 U/L (45-117); Anion Gap 10 (5-15); BUN 12 mg/dL (7-18); BUN/Creat Ratio 19.7 RATIO (10-20); Calcium,Total 9.1 mg/dL (8.5-10.1); Chloride 106 mmol/L (98-107); Creatinine, Serum 0.61 mg/dL (0.70-1.30); EST Glomerular Filtration Rate 142 mL/min (>60); Est Glom Filt Rate - Afr Amer 171 mL/min (>60); Globulin 3.7 g/dL (2.2-4.2); Glucose 167 mg/dL (74-106); Potassium 3.9 mmol/L (3.5-5.1); Protein, Total 6.7 g/dL (6.4-8.2); Sodium Level 141 mmol/L (136-145)
[2021-11-13 09:31] LABS: Anisocytosis 1+; Reactive Lymphocyte RARE
[2021-11-13 09:32] LABS: Platelet Estimate MKD DEC (ADEQ)
[2021-11-13 17:01] LABS: Xtra Tube EP Lab EXTRA TUBE
[2021-11-14 11:59] LABS: Pathologist Review Reviewed
== END | disposition home or self-care (01) ==
PROVIDERS: PCP Family Medicine; Referring Provider Nurse Practitioner Family; Visit Provider Nurse Practitioner Family
DX: D46.9 Myelodysplastic syndrome, unspecified (principal)
CPT/HCPCS: 36592; 80053; 85025; A4216

== ENCOUNTER → 2021-11-20 | Outpatient (CLI) | payer MEDICARE, SELFPAY ==
[2021-11-20 08:35] LABS: Absolute Lymphocyte Count 1.19 X10^3/uL (0.83-4.51); Absolute Neutrophil Count 0.3 X10^3/uL (2.0-7.7); Eosinophil# 0.13 X10^3/uL; Eosinophils% 7.7 % (0-5); Hematocrit 29.7 % (40-54); Hemoglobin 9.7 g/dL (13.0-16.5); Lymphocyte # 1.19 X10^3/ul (0.83-4.51); Lymphocyte % 70.4 % (19-41); Mean Corp Hgb Conc 32.7 g/dL (32-36); Mean Corpuscular Hgb 35.3 pg (27.0-32.0); Mean Platelet Vol. 10.9 fl (6.2-12.0); Monocyte# 0.03 X10^3/uL; Monocyte% 1.8 % (0-10); NRBC Flagged by Analyzer 0 % (0-5); Neutrophil # 0.33 X10^3/uL (2.7-7.7); Neutrophil % 19.5 % (47-70); POSITIVE COUNT YES; POSITIVE DIFFERENTIAL YES; POSITIVE MORPHOLOGY YES; Platelet Count 80 K/mm3 (150-450); RBC Distribution Width CV 18.1 % (11.6-14.6); RBC Distribution Width SD 71.2 fl (35.1-43.9); Red Blood Count 2.75 M/mm3 (4.6-6.2); White Blood Count 1.7 K/mm3 (4.4-11.0)
[2021-11-20 08:36] LABS: Differential Indicated SCAN CRITERIA MET
[2021-11-20 08:49] LABS: ALB/GLOB Ratio 0.7 RATIO (0.9-2.4); AST(SGOT) 14 U/L (15-37); Alanine Aminotransfer ALT/SGPT 21 U/L (16-61); Albumin, Serum 2.8 g/dL (3.2-5.0); Alkaline Phosphatase 110 U/L (45-117); Anion Gap 7 (5-15); BUN 10 mg/dL (7-18); BUN/Creat Ratio 16.2 RATIO (10-20); Chloride 105 mmol/L (98-107); Creatinine, Serum 0.62 mg/dL (0.70-1.30); EST Glomerular Filtration Rate 139 mL/min (>60); Est Glom Filt Rate - Afr Amer 168 mL/min (>60); Globulin 4.1 g/dL (2.2-4.2); Glucose 145 mg/dL (74-106); Potassium 3.8 mmol/L (3.5-5.1); Protein, Total 6.9 g/dL (6.4-8.2); Sodium Level 139 mmol/L (136-145)
== END | disposition home or self-care (01) ==
LOC: MEDOUTP 07:58
PROVIDERS: PCP Family Medicine; Referring Provider Nurse Practitioner Family; Visit Provider Nurse Practitioner Family
DX: D46.9 Myelodysplastic syndrome, unspecified (principal)
CPT/HCPCS: 36592; 80053; 85025; A4216

== ENCOUNTER → 2021-11-27 | Outpatient (CLI) | payer MEDICARE, SELFPAY ==
[2021-11-27 09:05] LABS: Absolute Lymphocyte Count 1.26 X10^3/uL (0.83-4.51); Absolute Neutrophil Count 0.8 X10^3/uL (2.0-7.7); Basophil# 0.03 X10^3/uL; Basophil% 1.3 % (0-1); Eosinophil# 0.06 X10^3/uL; Eosinophils% 2.6 % (0-5); Hematocrit 30.8 % (40-54); Hemoglobin 9.9 g/dL (13.0-16.5); Lymphocyte # 1.26 X10^3/ul (0.83-4.51); Lymphocyte % 55.3 % (19-41); Mean Corp Hgb Conc 32.1 g/dL (32-36); Mean Corpuscular Volume 108.8 fL (80-94); Mean Platelet Vol. 9.8 fl (6.2-12.0); Monocyte# 0.15 X10^3/uL; Monocyte% 6.6 % (0-10); NRBC Flagged by Analyzer 0 % (0-5); Neutrophil # 0.76 X10^3/uL (2.7-7.7); Neutrophil % 33.3 % (47-70); POSITIVE DIFFERENTIAL YES; POSITIVE MORPHOLOGY YES; Platelet Count 254 K/mm3 (150-450); RBC Distribution Width CV 18.1 % (11.6-14.6); RBC Distribution Width SD 72.7 fl (35.1-43.9); Red Blood Count 2.83 M/mm3 (4.6-6.2); White Blood Count 2.3 K/mm3 (4.4-11.0)
[2021-11-27 09:09] LABS: Differential Indicated SCAN CRITERIA MET
[2021-11-27 09:21] LABS: ALB/GLOB Ratio 0.8 RATIO (0.9-2.4); AST(SGOT) 12 U/L (15-37); Alanine Aminotransfer ALT/SGPT 19 U/L (16-61); Alkaline Phosphatase 113 U/L (45-117); Anion Gap 8 (5-15); BUN 12 mg/dL (7-18); BUN/Creat Ratio 17.5 RATIO (10-20); Calcium,Total 9.4 mg/dL (8.5-10.1); Chloride 105 mmol/L (98-107); Creatinine, Serum 0.68 mg/dL (0.70-1.30); EST Glomerular Filtration Rate 124 mL/min (>60); Est Glom Filt Rate - Afr Amer 150 mL/min (>60); Globulin 3.9 g/dL (2.2-4.2); Glucose 153 mg/dL (74-106); Potassium 3.9 mmol/L (3.5-5.1); Protein, Total 6.9 g/dL (6.4-8.2); Sodium Level 141 mmol/L (136-145)
[2021-11-27 09:35] LABS: Anisocytosis 2+; Differential Comment SCANNED; Macrocytosis 1+; Microcytosis 1+; Reactive Lymphocyte 1+
[2021-11-27 18:17] LABS: Xtra Tube EP Lab EXTRA TUBE
== END | disposition home or self-care (01) ==
LOC: MEDOUTP 08:05
PROVIDERS: PCP Family Medicine; Referring Provider Nurse Practitioner Family; Visit Provider Nurse Practitioner Family
DX: D46.9 Myelodysplastic syndrome, unspecified (principal)
CPT/HCPCS: 36592; 80053; 85025; A4216

== ENCOUNTER → 2021-12-04 | Outpatient (CLI) | payer MEDICARE, SELFPAY ==
[2021-12-04 08:40] LABS: Absolute Lymphocyte Count 1.68 X10^3/uL (0.83-4.51); Absolute Neutrophil Count 2.6 X10^3/uL (2.0-7.7); Basophil# 0.04 X10^3/uL; Basophil% 0.8 % (0-1); Eosinophil# 0.02 X10^3/uL; Eosinophils% 0.4 % (0-5); Hemoglobin 10.6 g/dL (13.0-16.5); Lymphocyte # 1.68 X10^3/ul (0.83-4.51); Lymphocyte % 35.6 % (19-41); Mean Corp Hgb Conc 32.1 g/dL (32-36); Mean Corpuscular Volume 108.9 fL (80-94); Mean Platelet Vol. 8.9 fl (6.2-12.0); Monocyte# 0.36 X10^3/uL; Monocyte% 7.6 % (0-10); NRBC Flagged by Analyzer 0 % (0-5); Neutrophil # 2.58 X10^3/uL (2.7-7.7); Neutrophil % 54.8 % (47-70); POSITIVE MORPHOLOGY YES; Platelet Count 225 K/mm3 (150-450); RBC Distribution Width CV 17.7 % (11.6-14.6); RBC Distribution Width SD 71.5 fl (35.1-43.9); Red Blood Count 3.03 M/mm3 (4.6-6.2); White Blood Count 4.7 K/mm3 (4.4-11.0)
[2021-12-04 08:45] LABS: Differential Indicated SCAN CRITERIA MET
[2021-12-04 08:54] LABS: ALB/GLOB Ratio 0.8 RATIO (0.9-2.4); AST(SGOT) 18 U/L (15-37); Alanine Aminotransfer ALT/SGPT 21 U/L (16-61); Alkaline Phosphatase 120 U/L (45-117); Anion Gap 8 (5-15); BUN 12 mg/dL (7-18); BUN/Creat Ratio 17.8 RATIO (10-20); Calcium,Total 9.1 mg/dL (8.5-10.1); Chloride 106 mmol/L (98-107); Creatinine, Serum 0.67 mg/dL (0.70-1.30); EST Glomerular Filtration Rate 126 mL/min (>60); Est Glom Filt Rate - Afr Amer 152 mL/min (>60); Glucose 158 mg/dL (74-106); Potassium 3.8 mmol/L (3.5-5.1); Sodium Level 141 mmol/L (136-145)
[2021-12-04 08:59] LABS: Anisocytosis 1+
[2021-12-04 16:36] LABS: Xtra Tube EP Lab EXTRA TUBE
== END | disposition home or self-care (01) ==
LOC: MEDOUTP 08:08
PROVIDERS: PCP Family Medicine; Referring Provider Nurse Practitioner Family; Visit Provider Nurse Practitioner Family
DX: D46.9 Myelodysplastic syndrome, unspecified (principal)
CPT/HCPCS: 36592; 80053; 85025; A4216

== ENCOUNTER → 2021-12-18 | Outpatient (CLI) | payer MEDICARE, SELFPAY ==
[2021-12-18 08:42] LABS: Absolute Lymphocyte Count 1.45 X10^3/uL (0.83-4.51); Absolute Neutrophil Count 5.7 X10^3/uL (2.0-7.7); Basophil# 0.03 X10^3/uL; Basophil% 0.4 % (0-1); Eosinophil# 0.26 X10^3/uL; Eosinophils% 3.4 % (0-5); Hematocrit 29.9 % (40-54); Hemoglobin 9.8 g/dL (13.0-16.5); Lymphocyte # 1.45 X10^3/ul (0.83-4.51); Lymphocyte % 18.8 % (19-41); Mean Corp Hgb Conc 32.8 g/dL (32-36); Mean Corpuscular Hgb 35.4 pg (27.0-32.0); Mean Corpuscular Volume 107.9 fL (80-94); Mean Platelet Vol. 8.5 fl (6.2-12.0); Monocyte# 0.23 X10^3/uL; NRBC Flagged by Analyzer 0 % (0-5); Neutrophil % 73.9 % (47-70); POSITIVE MORPHOLOGY YES; Platelet Count 165 K/mm3 (150-450); RBC Distribution Width SD 68.7 fl (35.1-43.9); Red Blood Count 2.77 M/mm3 (4.6-6.2); White Blood Count 7.7 K/mm3 (4.4-11.0)
[2021-12-18 08:43] LABS: Differential Indicated SCAN CRITERIA MET
[2021-12-18 08:54] LABS: Anisocytosis 1+; Ovalocyte 1+
[2021-12-18 08:58] LABS: ALB/GLOB Ratio 0.9 RATIO (0.9-2.4); AST(SGOT) 16 U/L (15-37); Alanine Aminotransfer ALT/SGPT 19 U/L (16-61); Albumin, Serum 3.2 g/dL (3.2-5.0); Alkaline Phosphatase 111 U/L (45-117); Anion Gap 6 (5-15); BUN 16 mg/dL (7-18); BUN/Creat Ratio 28.2 RATIO (10-20); Calcium,Total 9.3 mg/dL (8.5-10.1); Chloride 108 mmol/L (98-107); Creatinine, Serum 0.57 mg/dL (0.70-1.30); EST Glomerular Filtration Rate 154 mL/min (>60); Est Glom Filt Rate - Afr Amer 186 mL/min (>60); Globulin 3.7 g/dL (2.2-4.2); Glucose 127 mg/dL (74-106); Potassium 3.8 mmol/L (3.5-5.1); Protein, Total 6.9 g/dL (6.4-8.2); Sodium Level 141 mmol/L (136-145)
[2021-12-18 09:07] LABS: Hemoglobin A1c 5.6 % (3.8-5.6)
[2021-12-18 16:40] LABS: Xtra Tube EP Lab EXTRA TUBE
== END | disposition home or self-care (01) ==
LOC: MEDOUTP 08:10
PROVIDERS: PCP Family Medicine; Referring Provider Nurse Practitioner Family; Visit Provider Nurse Practitioner Family
DX: D64.9 Anemia, unspecified (principal); E11.65 Type 2 diabetes mellitus with hyperglycemia
CPT/HCPCS: 36592; 80053; 83036; 85025; A4216

== ENCOUNTER → 2021-12-25 | Outpatient (CLI) | payer MEDICARE, SELFPAY ==
[2021-12-25 08:42] LABS: Absolute Lymphocyte Count 1.87 X10^3/uL (0.83-4.51); Absolute Neutrophil Count 3.3 X10^3/uL (2.0-7.7); Basophil# 0.02 X10^3/uL; Basophil% 0.4 % (0-1); Eosinophils% 1.8 % (0-5); Hematocrit 31.3 % (40-54); Hemoglobin 10.1 g/dL (13.0-16.5); Lymphocyte # 1.87 X10^3/ul (0.83-4.51); Lymphocyte % 33.8 % (19-41); Mean Corp Hgb Conc 32.3 g/dL (32-36); Mean Corpuscular Hgb 34.9 pg (27.0-32.0); Mean Corpuscular Volume 108.3 fL (80-94); Mean Platelet Vol. 11.3 fl (6.2-12.0); Monocyte# 0.19 X10^3/uL; Monocyte% 3.4 % (0-10); NRBC Flagged by Analyzer 0 % (0-5); Neutrophil % 59.7 % (47-70); POSITIVE COUNT YES; POSITIVE MORPHOLOGY YES; Platelet Count 74 K/mm3 (150-450); RBC Distribution Width CV 17.3 % (11.6-14.6); RBC Distribution Width SD 67.3 fl (35.1-43.9); Red Blood Count 2.89 M/mm3 (4.6-6.2); White Blood Count 5.5 K/mm3 (4.4-11.0)
[2021-12-25 08:50] LABS: Differential Indicated SCAN CRITERIA MET
[2021-12-25 08:57] LABS: ALB/GLOB Ratio 0.9 RATIO (0.9-2.4); AST(SGOT) 11 U/L (15-37); Alanine Aminotransfer ALT/SGPT 22 U/L (16-61); Albumin, Serum 3.4 g/dL (3.2-5.0); Alkaline Phosphatase 120 U/L (45-117); Anion Gap 7 (5-15); BUN 17 mg/dL (7-18); BUN/Creat Ratio 27.8 RATIO (10-20); Calcium,Total 9.3 mg/dL (8.5-10.1); Chloride 107 mmol/L (98-107); Creatinine, Serum 0.61 mg/dL (0.70-1.30); EST Glomerular Filtration Rate 141 mL/min (>60); Est Glom Filt Rate - Afr Amer 170 mL/min (>60); Globulin 3.7 g/dL (2.2-4.2); Glucose 172 mg/dL (74-106); Potassium 3.8 mmol/L (3.5-5.1); Protein, Total 7.1 g/dL (6.4-8.2); Sodium Level 139 mmol/L (136-145)
[2021-12-25 09:51] LABS: Anisocytosis 1+; Platelet Estimate SLT DEC (ADEQ)
== END | disposition home or self-care (01) ==
LOC: MEDOUTP 08:10
PROVIDERS: PCP Family Medicine; Referring Provider Nurse Practitioner Family; Visit Provider Nurse Practitioner Family
DX: D46.9 Myelodysplastic syndrome, unspecified (principal)
CPT/HCPCS: 36592; 80053; 85025; A4216

== ENCOUNTER → 2021-12-31 | Outpatient (CLI) | payer MEDICARE, SELFPAY ==
[2021-12-31 09:07] LABS: Absolute Lymphocyte Count 1.49 X10^3/uL (0.83-4.51); Absolute Neutrophil Count 0.5 X10^3/uL (2.0-7.7); Basophil# 0.01 X10^3/uL; Basophil% 0.5 % (0-1); Eosinophil# 0.11 X10^3/uL; Eosinophils% 5.2 % (0-5); Hematocrit 31.1 % (40-54); Hemoglobin 10.2 g/dL (13.0-16.5); Lymphocyte # 1.49 X10^3/ul (0.83-4.51); Mean Corp Hgb Conc 32.8 g/dL (32-36); Mean Corpuscular Hgb 35.2 pg (27.0-32.0); Mean Corpuscular Volume 107.2 fL (80-94); Mean Platelet Vol. 9.8 fl (6.2-12.0); Monocyte# 0.03 X10^3/uL; Monocyte% 1.4 % (0-10); NRBC Flagged by Analyzer 0 % (0-5); Neutrophil # 0.47 X10^3/uL (2.7-7.7); POSITIVE COUNT YES; POSITIVE DIFFERENTIAL YES; POSITIVE MORPHOLOGY YES; Platelet Count 98 K/mm3 (150-450); RBC Distribution Width CV 17.9 % (11.6-14.6); RBC Distribution Width SD 71.7 fl (35.1-43.9); White Blood Count 2.1 K/mm3 (4.4-11.0)
[2021-12-31 09:13] LABS: Differential Indicated SCAN CRITERIA MET
[2021-12-31 09:18] LABS: ALB/GLOB Ratio 0.8 RATIO (0.9-2.4); AST(SGOT) 12 U/L (15-37); Alanine Aminotransfer ALT/SGPT 20 U/L (16-61); Alkaline Phosphatase 118 U/L (45-117); Anion Gap 4 (5-15); BUN 14 mg/dL (7-18); BUN/Creat Ratio 24.4 RATIO (10-20); Calcium,Total 9.2 mg/dL (8.5-10.1); Chloride 109 mmol/L (98-107); Creatinine, Serum 0.57 mg/dL (0.70-1.30); EST Glomerular Filtration Rate 152 mL/min (>60); Est Glom Filt Rate - Afr Amer 183 mL/min (>60); Globulin 3.7 g/dL (2.2-4.2); Glucose 161 mg/dL (74-106); Potassium 3.7 mmol/L (3.5-5.1); Protein, Total 6.7 g/dL (6.4-8.2); Sodium Level 140 mmol/L (136-145)
[2021-12-31 09:26] LABS: Anisocytosis 2+; Differential Comment SCANNED; Macrocytosis 1+; Microcytosis 1+; Platelet Estimate SLT DEC (ADEQ); Reactive Lymphocyte 1+
[2021-12-31 09:27] LABS: Hypochromasia 1+
--- NOTE | 2021-12-31 12:26 | NURSING ---
Patient's picc pulled per order. Blood culturs obtained prior to d/c of the picc. PICC line measured at 46cm after d/c. Culture of tip of cather obtained after discontinued. Patient tolerated well. Dressing applied ot site. No bleeding noted with d/c. Patient observed dressing to remain intact until patient seen at [facility]. MARIELA Mix
[2021-12-31 16:57] LABS: Xtra Tube EP Lab EXTRA TUBE
== END | disposition home or self-care (01) ==
LOC: MEDOUTP 08:24
PROVIDERS: PCP Family Medicine; Referring Provider Nurse Practitioner Family; Visit Provider Nurse Practitioner Family
DX: D64.9 Anemia, unspecified (principal)
CPT/HCPCS: 36592; 80053; 85025; 87040; 87101; A4216

== ENCOUNTER → 2022-01-05 | Outpatient (CLI) | payer MEDICARE, SELFPAY ==
[2022-01-05 11:12] LABS: Absolute Lymphocyte Count 1.06 X10^3/uL (0.83-4.51); Absolute Neutrophil Count 0.1 X10^3/uL (2.0-7.7); Basophil# 0.02 X10^3/uL; Basophil% 1.6 % (0-1); Eosinophil# 0.04 X10^3/uL; Eosinophils% 3.1 % (0-5); Hematocrit 33.7 % (40-54); Lymphocyte # 1.06 X10^3/ul (0.83-4.51); Lymphocyte % 82.2 % (19-41); Mean Corp Hgb Conc 32.6 g/dL (32-36); Mean Corpuscular Hgb 35.9 pg (27.0-32.0); Mean Corpuscular Volume 110.1 fL (80-94); Mean Platelet Vol. 9.3 fl (6.2-12.0); Monocyte# 0.04 X10^3/uL; Monocyte% 3.1 % (0-10); NRBC Flagged by Analyzer 0 % (0-5); Neutrophil # 0.13 X10^3/uL (2.7-7.7); POSITIVE COUNT YES; POSITIVE DIFFERENTIAL YES; POSITIVE MORPHOLOGY YES; Platelet Count 242 K/mm3 (150-450); RBC Distribution Width CV 17.5 % (11.6-14.6); RBC Distribution Width SD 70.5 fl (35.1-43.9); Red Blood Count 3.06 M/mm3 (4.6-6.2)
[2022-01-05 11:21] LABS: Differential Indicated SCAN CRITERIA MET; White Blood Count 1.3 K/mm3 (4.4-11.0)
[2022-01-05 11:25] LABS: ALB/GLOB Ratio 0.7 RATIO (0.9-2.4); AST(SGOT) 12 U/L (15-37); Alanine Aminotransfer ALT/SGPT 20 U/L (16-61); Albumin, Serum 3.1 g/dL (3.2-5.0); Alkaline Phosphatase 131 U/L (45-117); Anion Gap 7 (5-15); BUN 16 mg/dL (7-18); BUN/Creat Ratio 27.4 RATIO (10-20); Calcium,Total 9.4 mg/dL (8.5-10.1); Chloride 102 mmol/L (98-107); Creatinine, Serum 0.58 mg/dL (0.70-1.30); EST Glomerular Filtration Rate 148 mL/min (>60); Est Glom Filt Rate - Afr Amer 179 mL/min (>60); Globulin 4.2 g/dL (2.2-4.2); Glucose 144 mg/dL (74-106); Protein, Total 7.3 g/dL (6.4-8.2); Sodium Level 139 mmol/L (136-145)
[2022-01-05 11:30] LABS: Anisocytosis 1+
[2022-01-07 09:50] LABS: Pathologist Review Reviewed
== END | disposition home or self-care (01) ==
PROVIDERS: PCP Family Medicine
DX: D46.9 Myelodysplastic syndrome, unspecified (principal)
CPT/HCPCS: 36415; 80053; 85025

== ENCOUNTER 2022-01-21 11:02 | Outpatient (RCR) | payer MEDICARE, SELFPAY ==
[2022-01-09 11:30] LABS: Absolute Lymphocyte Count 1.02 X10^3/uL (0.83-4.51); Absolute Neutrophil Count 0.2 X10^3/uL (2.0-7.7); Basophil# 0.02 X10^3/uL; Basophil% 1.5 % (0-1); Eosinophil# 0.06 X10^3/uL; Eosinophils% 4.6 % (0-5); Hematocrit 31.3 % (40-54); Hemoglobin 10.6 g/dL (13.0-16.5); Lymphocyte # 1.02 X10^3/ul (0.83-4.51); Lymphocyte % 78.5 % (19-41); Mean Corp Hgb Conc 33.9 g/dL (32-36); Mean Corpuscular Hgb 36.4 pg (27.0-32.0); Mean Corpuscular Volume 107.6 fL (80-94); Mean Platelet Vol. 9.1 fl (6.2-12.0); Monocyte# 0.05 X10^3/uL; Monocyte% 3.8 % (0-10); NRBC Flagged by Analyzer 0 % (0-5); Neutrophil # 0.15 X10^3/uL (2.7-7.7); Neutrophil % 11.6 % (47-70); POSITIVE COUNT YES; POSITIVE DIFFERENTIAL YES; POSITIVE MORPHOLOGY YES; Platelet Count 223 K/mm3 (150-450); RBC Distribution Width CV 16.5 % (11.6-14.6); RBC Distribution Width SD 66.4 fl (35.1-43.9); Red Blood Count 2.91 M/mm3 (4.6-6.2)
[2022-01-09 11:41] LABS: Differential Indicated SCAN CRITERIA MET; White Blood Count 1.3 K/mm3 (4.4-11.0)
[2022-01-09 13:16] LABS: Anisocytosis 1+; Platelet Estimate ADEQUATE (ADEQ)
[2022-01-09 13:17] LABS: Ovalocyte 1+; Poikilocytosis 1+
[2022-01-09 19:32] LABS: Xtra Tube EP Lab EXTRA TUBE
[2022-01-12 12:54] LABS: Pathologist Review Reviewed
[2022-01-13 11:03] LABS: Absolute Lymphocyte Count 1.38 X10^3/uL (0.83-4.51); Absolute Neutrophil Count 0.5 X10^3/uL (2.0-7.7); Basophil# 0.01 X10^3/uL; Basophil% 0.5 % (0-1); Eosinophil# 0.06 X10^3/uL; Eosinophils% 2.9 % (0-5); Hematocrit 31.4 % (40-54); Hemoglobin 10.2 g/dL (13.0-16.5); Lymphocyte # 1.38 X10^3/ul (0.83-4.51); Mean Corp Hgb Conc 32.5 g/dL (32-36); Mean Corpuscular Hgb 34.9 pg (27.0-32.0); Mean Corpuscular Volume 107.5 fL (80-94); Monocyte% 4.9 % (0-10); NRBC Flagged by Analyzer 0 % (0-5); Neutrophil # 0.51 X10^3/uL (2.7-7.7); Neutrophil % 24.7 % (47-70); POSITIVE DIFFERENTIAL YES; POSITIVE MORPHOLOGY YES; Platelet Count 226 K/mm3 (150-450); RBC Distribution Width CV 16.3 % (11.6-14.6); RBC Distribution Width SD 64.7 fl (35.1-43.9); Red Blood Count 2.92 M/mm3 (4.6-6.2); White Blood Count 2.1 K/mm3 (4.4-11.0)
[2022-01-13 11:05] LABS: Differential Indicated SCAN CRITERIA MET
[2022-01-13 11:19] LABS: ALB/GLOB Ratio 0.8 RATIO (0.9-2.4); AST(SGOT) 16 U/L (15-37); Alanine Aminotransfer ALT/SGPT 22 U/L (16-61); Albumin, Serum 3.3 g/dL (3.2-5.0); Alkaline Phosphatase 115 U/L (45-117); Anion Gap 5 (5-15); BUN 16 mg/dL (7-18); Calcium,Total 9.9 mg/dL (8.5-10.1); Chloride 108 mmol/L (98-107); Creatinine, Serum 0.62 mg/dL (0.70-1.30); EST Glomerular Filtration Rate 140 mL/min (>60); Est Glom Filt Rate - Afr Amer 169 mL/min (>60); Globulin 4.4 g/dL (2.2-4.2); Glucose 103 mg/dL (74-106); Potassium 4.4 mmol/L (3.5-5.1); Protein, Total 7.7 g/dL (6.4-8.2); Sodium Level 141 mmol/L (136-145)
[2022-01-13 11:27] LABS: Reactive Lymphocyte RARE
[2022-01-16 12:20] LABS: Absolute Lymphocyte Count 1.41 X10^3/uL (0.83-4.51); Absolute Neutrophil Count 1.2 X10^3/uL (2.0-7.7); Basophil# 0.02 X10^3/uL; Basophil% 0.7 % (0-1); Eosinophil# 0.04 X10^3/uL; Eosinophils% 1.5 % (0-5); Hematocrit 35.4 % (40-54); Hemoglobin 11.8 g/dL (13.0-16.5); Lymphocyte # 1.41 X10^3/ul (0.83-4.51); Lymphocyte % 51.3 % (19-41); Mean Corp Hgb Conc 33.3 g/dL (32-36); Mean Corpuscular Hgb 35.9 pg (27.0-32.0); Mean Corpuscular Volume 107.6 fL (80-94); Mean Platelet Vol. 8.6 fl (6.2-12.0); Monocyte# 0.11 X10^3/uL; NRBC Flagged by Analyzer 0 % (0-5); Neutrophil # 1.15 X10^3/uL (2.7-7.7); Neutrophil % 41.8 % (47-70); Platelet Count 213 K/mm3 (150-450); RBC Distribution Width CV 16.2 % (11.6-14.6); RBC Distribution Width SD 64.5 fl (35.1-43.9); Red Blood Count 3.29 M/mm3 (4.6-6.2); White Blood Count 2.8 K/mm3 (4.4-11.0)
[2022-01-21 11:36] LABS: Absolute Neutrophil Count 1.7 X10^3/uL (2.0-7.7); Basophil# 0.02 X10^3/uL; Basophil% 0.6 % (0-1); Eosinophil# 0.05 X10^3/uL; Eosinophils% 1.5 % (0-5); Hematocrit 32.4 % (40-54); Hemoglobin 10.3 g/dL (13.0-16.5); Lymphocyte % 43.6 % (19-41); Mean Corp Hgb Conc 31.8 g/dL (32-36); Mean Corpuscular Hgb 34.8 pg (27.0-32.0); Mean Corpuscular Volume 109.5 fL (80-94); Mean Platelet Vol. 9.7 fl (6.2-12.0); Monocyte# 0.16 X10^3/uL; Monocyte% 4.7 % (0-10); NRBC Flagged by Analyzer 0 % (0-5); Neutrophil % 49.3 % (47-70); POSITIVE MORPHOLOGY YES; Platelet Count 174 K/mm3 (150-450); RBC Distribution Width CV 16.8 % (11.6-14.6); RBC Distribution Width SD 67.8 fl (35.1-43.9); Red Blood Count 2.96 M/mm3 (4.6-6.2); White Blood Count 3.4 K/mm3 (4.4-11.0)
[2022-01-21 11:41] LABS: Differential Indicated SCAN CRITERIA MET
[2022-01-21 11:49] LABS: ALB/GLOB Ratio 0.8 RATIO (0.9-2.4); AST(SGOT) 15 U/L (15-37); Alanine Aminotransfer ALT/SGPT 21 U/L (16-61); Albumin, Serum 3.3 g/dL (3.2-5.0); Alkaline Phosphatase 120 U/L (45-117); Anion Gap 7 (5-15); BUN 13 mg/dL (7-18); BUN/Creat Ratio 20.1 RATIO (10-20); Calcium,Total 9.9 mg/dL (8.5-10.1); Chloride 106 mmol/L (98-107); Creatinine, Serum 0.65 mg/dL (0.70-1.30); EST Glomerular Filtration Rate 132 mL/min (>60); Est Glom Filt Rate - Afr Amer 160 mL/min (>60); Globulin 4.2 g/dL (2.2-4.2); Glucose 170 mg/dL (74-106); Potassium 4.2 mmol/L (3.5-5.1); Protein, Total 7.5 g/dL (6.4-8.2); Sodium Level 140 mmol/L (136-145)
[2022-01-21 12:08] LABS: Anisocytosis 1+; Macrocytosis 1+; Platelet Estimate ADEQUATE (ADEQ); Poikilocytosis 1+
[2022-01-21 12:09] LABS: Ovalocyte 1+; Tear Drop Cell 1+
== END 2022-02-04 23:59 ==
LOC: PAVLAB 11:02
PROVIDERS: PCP Family Medicine
DX: D64.9 Anemia, unspecified (principal)
CPT/HCPCS: 36415; 80053; 85025

== ENCOUNTER → 2022-01-28 | Outpatient (CLI) | payer MEDICARE, SELFPAY ==
[2022-01-28 09:36] LABS: Absolute Lymphocyte Count 1.12 X10^3/uL (0.83-4.51); Absolute Neutrophil Count 1.8 X10^3/uL (2.0-7.7); Basophil# 0.02 X10^3/uL; Basophil% 0.7 % (0-1); Eosinophil# 0.06 X10^3/uL; Hemoglobin 9.6 g/dL (13.0-16.5); Lymphocyte # 1.12 X10^3/ul (0.83-4.51); Lymphocyte % 36.6 % (19-41); Mean Corp Hgb Conc 33.1 g/dL (32-36); Mean Corpuscular Hgb 36.1 pg (27.0-32.0); Mean Platelet Vol. 9.3 fl (6.2-12.0); Monocyte# 0.09 X10^3/uL; Monocyte% 2.9 % (0-10); NRBC Flagged by Analyzer 0 % (0-5); Neutrophil # 1.76 X10^3/uL (2.7-7.7); Neutrophil % 57.5 % (47-70); POSITIVE MORPHOLOGY YES; Platelet Count 139 K/mm3 (150-450); RBC Distribution Width CV 16.5 % (11.6-14.6); RBC Distribution Width SD 66.5 fl (35.1-43.9); Red Blood Count 2.66 M/mm3 (4.6-6.2); White Blood Count 3.1 K/mm3 (4.4-11.0)
[2022-01-28 09:38] LABS: Differential Indicated SCAN CRITERIA MET
[2022-01-28 09:49] LABS: ALB/GLOB Ratio 0.8 RATIO (0.9-2.4); AST(SGOT) 13 U/L (15-37); Alanine Aminotransfer ALT/SGPT 17 U/L (16-61); Albumin, Serum 3.1 g/dL (3.2-5.0); Alkaline Phosphatase 111 U/L (45-117); Anion Gap 7 (5-15); BUN 15 mg/dL (7-18); BUN/Creat Ratio 23.1 RATIO (10-20); Calcium,Total 9.3 mg/dL (8.5-10.1); Chloride 105 mmol/L (98-107); Creatinine, Serum 0.65 mg/dL (0.70-1.30); EST Glomerular Filtration Rate 132 mL/min (>60); Est Glom Filt Rate - Afr Amer 159 mL/min (>60); Glucose 135 mg/dL (74-106); Potassium 3.8 mmol/L (3.5-5.1); Protein, Total 7.1 g/dL (6.4-8.2); Sodium Level 139 mmol/L (136-145)
[2022-01-28 10:46] LABS: Anisocytosis 2+; Differential Comment SCANNED; Macrocytosis 1+; Microcytosis 1+
== END | disposition home or self-care (01) ==
LOC: MEDOUTP 09:02
PROVIDERS: PCP Family Medicine; Referring Provider Nurse Practitioner Family; Visit Provider Nurse Practitioner Family
DX: D64.9 Anemia, unspecified (principal); Z71.89 Other specified counseling
CPT/HCPCS: 36592; 80053; 85025; A4216

== ENCOUNTER → 2022-02-03 | Outpatient (CLI) | payer MEDICARE, SELFPAY ==
[2022-02-03 13:46] LABS: Hemoglobin 9.4 g/dL (13.0-16.5); Mean Corp Hgb Conc 32.4 g/dL (32-36); Mean Corpuscular Hgb 35.3 pg (27.0-32.0); Mean Platelet Vol. 8.7 fl (6.2-12.0); POSITIVE COUNT YES; POSITIVE DIFFERENTIAL YES; POSITIVE MORPHOLOGY YES; Platelet Count 46 K/mm3 (150-450); Red Blood Count 2.66 M/mm3 (4.6-6.2); White Blood Count 2.8 K/mm3 (4.4-11.0)
[2022-02-03 13:48] LABS: Scan Indicated on CBC? Y/N YES- FLAGS NOTED
[2022-02-03 13:55] LABS: ALB/GLOB Ratio 0.8 RATIO (0.9-2.4); AST(SGOT) 19 U/L (15-37); Alanine Aminotransfer ALT/SGPT 25 U/L (16-61); Albumin, Serum 3.2 g/dL (3.2-5.0); Alkaline Phosphatase 111 U/L (45-117); Anion Gap 6 (5-15); BUN 13 mg/dL (7-18); Chloride 103 mmol/L (98-107); Creatinine, Serum 0.57 mg/dL (0.70-1.30); EST Glomerular Filtration Rate 154 mL/min (>60); Est Glom Filt Rate - Afr Amer 186 mL/min (>60); Globulin 3.8 g/dL (2.2-4.2); Glucose 97 mg/dL (74-106); Sodium Level 138 mmol/L (136-145)
[2022-02-04 12:20] LABS: Pathologist Review Reviewed
== END | disposition home or self-care (01) ==
LOC: MEDOUTP 13:01
PROVIDERS: PCP Family Medicine; Referring Provider Nurse Practitioner Family; Visit Provider Nurse Practitioner Family
DX: D46.9 Myelodysplastic syndrome, unspecified (principal)
CPT/HCPCS: 36592; 80053; 85027; 86850; 86900; 86901; A4216

== ENCOUNTER → 2022-02-05 | Outpatient (CLI) | payer MEDICARE, SELFPAY ==
[2022-02-05 09:20] LABS: Absolute Lymphocyte Count 1.33 X10^3/uL (0.83-4.51); Absolute Neutrophil Count 0.7 X10^3/uL (2.0-7.7); Basophil# 0.01 X10^3/uL; Basophil% 0.5 % (0-1); Eosinophil# 0.11 X10^3/uL; Hematocrit 29.8 % (40-54); Hemoglobin 9.7 g/dL (13.0-16.5); Lymphocyte # 1.33 X10^3/ul (0.83-4.51); Lymphocyte % 59.9 % (19-41); Mean Corp Hgb Conc 32.6 g/dL (32-36); Mean Corpuscular Hgb 35.4 pg (27.0-32.0); Mean Corpuscular Volume 108.8 fL (80-94); Mean Platelet Vol. 13.5 fl (6.2-12.0); Monocyte# 0.05 X10^3/uL; Monocyte% 2.3 % (0-10); NRBC Flagged by Analyzer 1.4 % (0-5); Neutrophil # 0.71 X10^3/uL (2.7-7.7); Neutrophil % 31.8 % (47-70); POSITIVE COUNT YES; POSITIVE DIFFERENTIAL YES; POSITIVE MORPHOLOGY YES; Platelet Count 38 K/mm3 (150-450); RBC Distribution Width SD 64.2 fl (35.1-43.9); Red Blood Count 2.74 M/mm3 (4.6-6.2); White Blood Count 2.2 K/mm3 (4.4-11.0)
[2022-02-05 09:26] LABS: Differential Indicated SCAN CRITERIA MET
[2022-02-05 09:36] LABS: ALB/GLOB Ratio 0.9 RATIO (0.9-2.4); AST(SGOT) 16 U/L (15-37); Alanine Aminotransfer ALT/SGPT 27 U/L (16-61); Albumin, Serum 3.3 g/dL (3.2-5.0); Alkaline Phosphatase 120 U/L (45-117); Anion Gap 5 (5-15); BUN 16 mg/dL (7-18); BUN/Creat Ratio 23.9 RATIO (10-20); Calcium,Total 9.1 mg/dL (8.5-10.1); Chloride 105 mmol/L (98-107); Creatinine, Serum 0.67 mg/dL (0.70-1.30); EST Glomerular Filtration Rate 127 mL/min (>60); Est Glom Filt Rate - Afr Amer 153 mL/min (>60); Globulin 3.7 g/dL (2.2-4.2); Glucose 120 mg/dL (74-106); Potassium 3.9 mmol/L (3.5-5.1); Sodium Level 138 mmol/L (136-145)
[2022-02-05 09:38] LABS: Anisocytosis 2+
[2022-02-05 14:34] LABS: Pathologist Review Reviewed
[2022-02-05 17:15] LABS: Xtra Tube EP Lab EXTRA TUBE
== END | disposition home or self-care (01) ==
LOC: MEDOUTP 08:52
PROVIDERS: PCP Family Medicine; Referring Provider Nurse Practitioner Family; Visit Provider Nurse Practitioner Family
DX: D46.9 Myelodysplastic syndrome, unspecified (principal)
CPT/HCPCS: 36592; 80053; 85025; A4216

== ENCOUNTER → 2022-02-09 | Outpatient (CLI) | payer MEDICARE, SELFPAY ==
[2022-02-09] MEDS: 0.9% NaCl PICC Flush IV ×2 (08:16→08:24)
[2022-02-09 08:59] LABS: Absolute Lymphocyte Count 1.21 X10^3/uL (0.83-4.51); Absolute Neutrophil Count 0.1 X10^3/uL (2.0-7.7); Basophil# 0.01 X10^3/uL; Basophil% 0.7 % (0-1); Eosinophil# 0.07 X10^3/uL; Eosinophils% 4.8 % (0-5); Hematocrit 27.8 % (40-54); Lymphocyte # 1.21 X10^3/ul (0.83-4.51); Lymphocyte % 83.4 % (19-41); Mean Corp Hgb Conc 32.4 g/dL (32-36); Mean Corpuscular Hgb 35.3 pg (27.0-32.0); Mean Platelet Vol. 8.8 fl (6.2-12.0); Monocyte# 0.03 X10^3/uL; Monocyte% 2.1 % (0-10); NRBC Flagged by Analyzer 0 % (0-5); Neutrophil # 0.13 X10^3/uL (2.7-7.7); POSITIVE COUNT YES; POSITIVE DIFFERENTIAL YES; POSITIVE MORPHOLOGY YES; RBC Distribution Width CV 16.7 % (11.6-14.6); RBC Distribution Width SD 66.2 fl (35.1-43.9); Red Blood Count 2.55 M/mm3 (4.6-6.2); White Blood Count 1.5 K/mm3 (4.4-11.0)
[2022-02-09 09:09] LABS: ALB/GLOB Ratio 0.8 RATIO (0.9-2.4); AST(SGOT) 19 U/L (15-37); Alanine Aminotransfer ALT/SGPT 27 U/L (16-61); Albumin, Serum 3.2 g/dL (3.2-5.0); Alkaline Phosphatase 130 U/L (45-117); Anion Gap 5 (5-15); BUN 10 mg/dL (7-18); BUN/Creat Ratio 16.6 RATIO (10-20); Calcium,Total 8.8 mg/dL (8.5-10.1); Chloride 107 mmol/L (98-107); EST Glomerular Filtration Rate 143 mL/min (>60); Est Glom Filt Rate - Afr Amer 173 mL/min (>60); Globulin 3.8 g/dL (2.2-4.2); Glucose 158 mg/dL (74-106); Potassium 3.8 mmol/L (3.5-5.1); Sodium Level 140 mmol/L (136-145)
[2022-02-09 09:16] LABS: Platelet Count 37 K/mm3 (150-450)
[2022-02-09 09:17] LABS: Differential Indicated SCAN CRITERIA MET
[2022-02-09 09:47] LABS: Anisocytosis 1+; Platelet Estimate MKD DEC (ADEQ)
[2022-02-09 09:48] LABS: Reactive Lymphocyte RARE
[2022-02-11 09:30] LABS: Pathologist Review Reviewed
== END | disposition home or self-care (01) ==
LOC: MEDOUTP 08:04
PROVIDERS: PCP Family Medicine; Referring Provider Nurse Practitioner Family; Visit Provider Nurse Practitioner Family
DX: D46.9 Myelodysplastic syndrome, unspecified (principal); Z71.89 Other specified counseling
CPT/HCPCS: 36415; 80053; 85025; 96523; A4216

== ENCOUNTER → 2022-02-12 | Outpatient (CLI) | payer MEDICARE, SELFPAY ==
[2022-02-12 09:49] LABS: Absolute Lymphocyte Count 1.01 X10^3/uL (0.83-4.51); Absolute Neutrophil Count 0.1 X10^3/uL (2.0-7.7); Basophil# 0.01 X10^3/uL; Basophil% 0.8 % (0-1); Eosinophil# 0.06 X10^3/uL; Eosinophils% 5.1 % (0-5); Hematocrit 27.2 % (40-54); Hemoglobin 9.1 g/dL (13.0-16.5); Lymphocyte # 1.01 X10^3/ul (0.83-4.51); Lymphocyte % 85.6 % (19-41); Mean Corp Hgb Conc 33.5 g/dL (32-36); Mean Corpuscular Hgb 36.5 pg (27.0-32.0); Mean Corpuscular Volume 109.2 fL (80-94); Mean Platelet Vol. 9.1 fl (6.2-12.0); Monocyte# 0.03 X10^3/uL; Monocyte% 2.5 % (0-10); NRBC Flagged by Analyzer 0 % (0-5); Neutrophil # 0.07 X10^3/uL (2.7-7.7); POSITIVE COUNT YES; POSITIVE DIFFERENTIAL YES; POSITIVE MORPHOLOGY YES; Platelet Count 110 K/mm3 (150-450); RBC Distribution Width CV 17.2 % (11.6-14.6); RBC Distribution Width SD 68.2 fl (35.1-43.9); Red Blood Count 2.49 M/mm3 (4.6-6.2)
[2022-02-12 09:55] LABS: White Blood Count 1.2 K/mm3 (4.4-11.0)
[2022-02-12 10:13] LABS: Differential Indicated SCAN CRITERIA MET
[2022-02-12 10:14] LABS: Anisocytosis 2+; Differential Comment SCANNED; Macrocytosis 1+; Microcytosis 1+; Reactive Lymphocyte 1+
[2022-02-13 12:04] LABS: Pathologist Review Reviewed
== END | disposition home or self-care (01) ==
LOC: MEDOUTP 09:02
PROVIDERS: PCP Family Medicine; Referring Provider Nurse Practitioner Family; Visit Provider Nurse Practitioner Family
DX: D46.9 Myelodysplastic syndrome, unspecified (principal); Z71.89 Other specified counseling
CPT/HCPCS: 36415; 85025; A4216

== ENCOUNTER → 2022-02-16 | Outpatient (CLI) | payer MEDICARE, SELFPAY ==
[2022-02-16 09:48] LABS: Absolute Lymphocyte Count 0.97 X10^3/uL (0.83-4.51); Absolute Neutrophil Count 0.1 X10^3/uL (2.0-7.7); Basophil# 0.01 X10^3/uL; Basophil% 0.9 % (0-1); Eosinophil# 0.03 X10^3/uL; Eosinophils% 2.7 % (0-5); Hematocrit 27.3 % (40-54); Hemoglobin 8.8 g/dL (13.0-16.5); Lymphocyte # 0.97 X10^3/ul (0.83-4.51); Lymphocyte % 86.6 % (19-41); Mean Corp Hgb Conc 32.2 g/dL (32-36); Mean Corpuscular Hgb 35.3 pg (27.0-32.0); Mean Corpuscular Volume 109.6 fL (80-94); Mean Platelet Vol. 9.7 fl (6.2-12.0); Monocyte# 0.06 X10^3/uL; Monocyte% 5.4 % (0-10); NRBC Flagged by Analyzer 0 % (0-5); Neutrophil # 0.05 X10^3/uL (2.7-7.7); Neutrophil % 4.4 % (47-70); POSITIVE COUNT YES; POSITIVE DIFFERENTIAL YES; POSITIVE MORPHOLOGY YES; Platelet Count 204 K/mm3 (150-450); RBC Distribution Width CV 17.1 % (11.6-14.6); RBC Distribution Width SD 67.9 fl (35.1-43.9); Red Blood Count 2.49 M/mm3 (4.6-6.2)
[2022-02-16 10:02] LABS: ALB/GLOB Ratio 0.7 RATIO (0.9-2.4); AST(SGOT) 14 U/L (15-37); Alanine Aminotransfer ALT/SGPT 22 U/L (16-61); Alkaline Phosphatase 96 U/L (45-117); Anion Gap 7 (5-15); BUN 13 mg/dL (7-18); BUN/Creat Ratio 21.3 RATIO (10-20); Calcium,Total 9.2 mg/dL (8.5-10.1); Chloride 102 mmol/L (98-107); Creatinine, Serum 0.61 mg/dL (0.70-1.30); EST Glomerular Filtration Rate 141 mL/min (>60); Est Glom Filt Rate - Afr Amer 170 mL/min (>60); Globulin 4.1 g/dL (2.2-4.2); Glucose 118 mg/dL (74-106); Potassium 3.8 mmol/L (3.5-5.1); Protein, Total 7.1 g/dL (6.4-8.2); Sodium Level 137 mmol/L (136-145)
[2022-02-16 10:09] LABS: Differential Indicated SCAN CRITERIA MET; White Blood Count 1.1 K/mm3 (4.4-11.0)
[2022-02-16 10:17] LABS: Differential Comment SCANNED
[2022-02-16 17:39] LABS: Xtra Tube EP Lab EXTRA TUBE
[2022-02-17 12:54] LABS: Pathologist Review Reviewed
== END | disposition home or self-care (01) ==
LOC: MEDOUTP 08:52
PROVIDERS: PCP Family Medicine; Referring Provider Internal Medicine Hematology; Visit Provider Internal Medicine Hematology
DX: D46.9 Myelodysplastic syndrome, unspecified (principal); Z71.89 Other specified counseling
CPT/HCPCS: 36592; 80053; 85025; A4216

== ENCOUNTER → 2022-02-19 | Outpatient (CLI) | payer MEDICARE, SELFPAY ==
[2022-02-19 09:47] LABS: Absolute Lymphocyte Count 0.97 X10^3/uL (0.83-4.51); Absolute Neutrophil Count 0.1 X10^3/uL (2.0-7.7); Basophil# 0.02 X10^3/uL; Basophil% 1.8 % (0-1); Eosinophil# 0.03 X10^3/uL; Eosinophils% 2.7 % (0-5); Hematocrit 27.5 % (40-54); Hemoglobin 8.8 g/dL (13.0-16.5); Lymphocyte # 0.97 X10^3/ul (0.83-4.51); Lymphocyte % 85.8 % (19-41); Mean Corpuscular Hgb 35.2 pg (27.0-32.0); Monocyte# 0.06 X10^3/uL; Monocyte% 5.3 % (0-10); NRBC Flagged by Analyzer 0 % (0-5); Neutrophil # 0.05 X10^3/uL (2.7-7.7); Neutrophil % 4.4 % (47-70); POSITIVE COUNT YES; POSITIVE DIFFERENTIAL YES; POSITIVE MORPHOLOGY YES; Platelet Count 191 K/mm3 (150-450); RBC Distribution Width CV 16.9 % (11.6-14.6); RBC Distribution Width SD 67.8 fl (35.1-43.9); White Blood Count 1.1 K/mm3 (4.4-11.0)
[2022-02-19 09:48] LABS: Differential Indicated SCAN CRITERIA MET
[2022-02-19 17:41] LABS: Xtra Tube EP Lab EXTRA TUBE
[2022-02-23 10:01] LABS: Pathologist Review Reviewed
== END | disposition home or self-care (01) ==
PROVIDERS: PCP Family Medicine; Referring Provider Internal Medicine Hematology; Visit Provider Internal Medicine Hematology
DX: D46.9 Myelodysplastic syndrome, unspecified (principal); Z71.89 Other specified counseling
CPT/HCPCS: 36592; 85025; A4216

== ENCOUNTER → 2022-02-23 | Outpatient (CLI) | payer MEDICARE, SELFPAY ==
[2022-02-23 09:12] LABS: Absolute Lymphocyte Count 1.24 X10^3/uL (0.83-4.51); Absolute Neutrophil Count 0.3 X10^3/uL (2.0-7.7); Basophil# 0.01 X10^3/uL; Basophil% 0.6 % (0-1); Eosinophil# 0.04 X10^3/uL; Eosinophils% 2.5 % (0-5); Hematocrit 29.6 % (40-54); Hemoglobin 9.3 g/dL (13.0-16.5); Lymphocyte # 1.24 X10^3/ul (0.83-4.51); Lymphocyte % 76.1 % (19-41); Mean Corp Hgb Conc 31.4 g/dL (32-36); Mean Corpuscular Hgb 35.1 pg (27.0-32.0); Mean Corpuscular Volume 111.7 fL (80-94); Mean Platelet Vol. 9.3 fl (6.2-12.0); Monocyte# 0.09 X10^3/uL; Monocyte% 5.5 % (0-10); NRBC Flagged by Analyzer 0 % (0-5); Neutrophil # 0.25 X10^3/uL (2.7-7.7); Neutrophil % 15.3 % (47-70); POSITIVE DIFFERENTIAL YES; POSITIVE MORPHOLOGY YES; Platelet Count 194 K/mm3 (150-450); RBC Distribution Width CV 17.3 % (11.6-14.6); RBC Distribution Width SD 71.2 fl (35.1-43.9); Red Blood Count 2.65 M/mm3 (4.6-6.2); White Blood Count 1.6 K/mm3 (4.4-11.0)
[2022-02-23 09:16] LABS: Differential Indicated SCAN CRITERIA MET
[2022-02-23 09:29] LABS: ALB/GLOB Ratio 0.7 RATIO (0.9-2.4); AST(SGOT) 21 U/L (15-37); Alanine Aminotransfer ALT/SGPT 32 U/L (16-61); Albumin, Serum 3.3 g/dL (3.2-5.0); Alkaline Phosphatase 129 U/L (45-117); Anion Gap 4 (5-15); BUN 11 mg/dL (7-18); BUN/Creat Ratio 17.1 RATIO (10-20); Calcium,Total 9.5 mg/dL (8.5-10.1); Chloride 106 mmol/L (98-107); Creatinine, Serum 0.64 mg/dL (0.70-1.30); EST Glomerular Filtration Rate 133 mL/min (>60); Est Glom Filt Rate - Afr Amer 161 mL/min (>60); Globulin 4.5 g/dL (2.2-4.2); Glucose 135 mg/dL (74-106); Protein, Total 7.8 g/dL (6.4-8.2); Sodium Level 139 mmol/L (136-145)
[2022-02-23 09:49] LABS: Anisocytosis 1+; Reactive Lymphocyte RARE
== END | disposition home or self-care (01) ==
LOC: MEDOUTP 08:05
PROVIDERS: PCP Family Medicine; Referring Provider Internal Medicine Hematology; Visit Provider Internal Medicine Hematology
DX: D46.9 Myelodysplastic syndrome, unspecified (principal)
CPT/HCPCS: 36415; 80053; 85025; 96523; A4216

== ENCOUNTER → 2022-02-26 | Outpatient (CLI) | payer MEDICARE, SELFPAY ==
--- NOTE | 2022-02-26 09:49 | RAD_ITS ---
STUDY: X-RAY CHEST REASON FOR EXAM: Male, 66 years old. PICC PLACEMENT TECHNIQUE: Single AP portable view of the chest. COMPARISON: Comparison is made with prior study dated 06/12/2021. FINDINGS: A left-sided PICC line catheter has been placed. The tip is at the junction of the superior vena cava and right atrium. The lungs are clear and expanded. There is no demonstrated pleural abnormality. Sternal cerclage wires and vascular clips are present from a prior sternotomy and coronary artery bypass graft procedure (CABG). Normal mediastinum and eunice. Normal visualized pulmonary arteries. There is atherosclerotic calcification of the aortic arch with tortuosity. Normal visualized thoracic spine. Status post left shoulder replacement. Surgical fusion in the lower cervical spine. There is no demonstrated abnormality of the visualized soft tissue structures of the upper abdomen. RAD/CXR for Line Placement IMPRESSION: The tip of the left PICC line catheter is at the junction of the superior vena cava and right atrium. Electronically Signed: Mateusz Emmanuel MD at 10:13 EST ,
[2022-02-26 09:52] LABS: Absolute Lymphocyte Count 1.16 X10^3/uL (0.83-4.51); Absolute Neutrophil Count 0.4 X10^3/uL (2.0-7.7); Basophil# 0.01 X10^3/uL; Eosinophil# 0.01 X10^3/uL; Hemoglobin 9.2 g/dL (13.0-16.5); Lymphocyte # 1.16 X10^3/ul (0.83-4.51); Mean Corp Hgb Conc 31.7 g/dL (32-36); Mean Corpuscular Hgb 35.1 pg (27.0-32.0); Mean Corpuscular Volume 110.7 fL (80-94); Mean Platelet Vol. 9.2 fl (6.2-12.0); Monocyte# 0.09 X10^3/uL; NRBC Flagged by Analyzer 0 % (0-5); Neutrophil # 0.38 X10^3/uL (2.7-7.7); POSITIVE COUNT YES; POSITIVE DIFFERENTIAL YES; POSITIVE MORPHOLOGY YES; Platelet Count 163 K/mm3 (150-450); RBC Distribution Width CV 17.3 % (11.6-14.6); RBC Distribution Width SD 70.1 fl (35.1-43.9); Red Blood Count 2.62 M/mm3 (4.6-6.2); White Blood Count 1.7 K/mm3 (4.4-11.0)
[2022-02-26 10:05] LABS: Differential Indicated SCAN CRITERIA MET
[2022-02-26 10:48] LABS: Lymphocyte 62 % (19-41); Monocyte 2 % (0-10); Neutrophil-Band 10 % (0-5); Neutrophil-Segmented 26 % (47-70); Total Cells Counted 50 (MANUAL DIFF)
[2022-02-26 10:49] LABS: Atypical Lymphocyte 1+ %
[2022-02-26 10:51] LABS: Anisocytosis 2+; Ovalocyte 1+; Platelet Estimate ADEQUATE (ADEQ); Polychromasia RARE
[2022-02-26 10:52] LABS: Scan Smear per Review Criteria MANUAL DIFF
[2022-02-27 14:08] LABS: Pathologist Review Reviewed
== END | disposition home or self-care (01) ==
PROVIDERS: PCP Family Medicine; Referring Provider Internal Medicine Hematology; Visit Provider Internal Medicine Hematology
DX: D46.9 Myelodysplastic syndrome, unspecified (principal); Z71.89 Other specified counseling
CPT/HCPCS: 36415; 36569; 71045; 85025; A4216

== ENCOUNTER → 2022-03-03 | Outpatient (CLI) | payer MEDICARE, SELFPAY ==
[2022-03-03] MEDS: Alteplase 2 MG/2 ML Vial IV (09:12)
[2022-03-03] MEDS: 0.9% NaCl PICC Flush IV ×2 (10:30→10:31)
[2022-03-03 10:32] LABS: Absolute Lymphocyte Count 1.18 X10^3/uL (0.83-4.51); Absolute Neutrophil Count 0.8 X10^3/uL (2.0-7.7); Basophil# 0.01 X10^3/uL; Basophil% 0.5 % (0-1); Eosinophil# 0.01 X10^3/uL; Eosinophils% 0.5 % (0-5); Hematocrit 28.3 % (40-54); Lymphocyte # 1.18 X10^3/ul (0.83-4.51); Lymphocyte % 54.1 % (19-41); Mean Corp Hgb Conc 31.8 g/dL (32-36); Mean Corpuscular Hgb 35.3 pg (27.0-32.0); Mean Platelet Vol. 10.1 fl (6.2-12.0); Monocyte# 0.17 X10^3/uL; Monocyte% 7.8 % (0-10); NRBC Flagged by Analyzer 0 % (0-5); Neutrophil % 36.6 % (47-70); POSITIVE DIFFERENTIAL YES; POSITIVE MORPHOLOGY YES; Platelet Count 144 K/mm3 (150-450); RBC Distribution Width CV 17.9 % (11.6-14.6); RBC Distribution Width SD 72.3 fl (35.1-43.9); Red Blood Count 2.55 M/mm3 (4.6-6.2); White Blood Count 2.2 K/mm3 (4.4-11.0)
[2022-03-03 10:35] LABS: Differential Indicated SCAN CRITERIA MET
[2022-03-03 10:49] LABS: ALB/GLOB Ratio 0.8 RATIO (0.9-2.4); AST(SGOT) 18 U/L (15-37); Alanine Aminotransfer ALT/SGPT 25 U/L (16-61); Albumin, Serum 3.2 g/dL (3.2-5.0); Alkaline Phosphatase 120 U/L (45-117); Anion Gap 7 (5-15); BUN 11 mg/dL (7-18); BUN/Creat Ratio 18.8 RATIO (10-20); Calcium,Total 9.3 mg/dL (8.5-10.1); Chloride 105 mmol/L (98-107); Creatinine, Serum 0.58 mg/dL (0.70-1.30); EST Glomerular Filtration Rate 148 mL/min (>60); Est Glom Filt Rate - Afr Amer 179 mL/min (>60); Globulin 4.2 g/dL (2.2-4.2); Glucose 89 mg/dL (74-106); Protein, Total 7.4 g/dL (6.4-8.2); Sodium Level 138 mmol/L (136-145)
[2022-03-03 11:00] LABS: Atypical Lymphocyte 1+ %; Differential Comment SCANNED
[2022-03-03 11:01] LABS: Anisocytosis 2+; Platelet Estimate ADEQUATE (ADEQ)
[2022-03-03 11:02] LABS: Hypochromasia 1+; Macrocytosis 1+; Ovalocyte 2+
[2022-03-03 18:26] LABS: Xtra Tube EP Lab EXTRA TUBE
== END | disposition home or self-care (01) ==
LOC: MEDOUTP 08:45
PROVIDERS: PCP Family Medicine; Referring Provider Internal Medicine Hematology; Visit Provider Internal Medicine Hematology
DX: D46.9 Myelodysplastic syndrome, unspecified (principal); T82.898A Other specified complication of vascular prosthetic devices, implants and grafts, initial encounter; Y83.8 Other surgical procedures as the cause of abnormal reaction of the patient, or of later complication, without mention of misadventure at the time of the procedure
CPT/HCPCS: 36592; 36593; 80053; 85025; J2997; A4216

== ENCOUNTER → 2022-03-12 | Outpatient (CLI) | payer MEDICARE, SELFPAY ==
[2022-03-12 09:32] LABS: Absolute Lymphocyte Count 1.05 X10^3/uL (0.83-4.51); Absolute Neutrophil Count 0.9 X10^3/uL (2.0-7.7); Basophil# 0.01 X10^3/uL; Basophil% 0.5 % (0-1); Eosinophil# 0.06 X10^3/uL; Eosinophils% 2.9 % (0-5); Hematocrit 25.8 % (40-54); Hemoglobin 8.3 g/dL (13.0-16.5); Lymphocyte # 1.05 X10^3/ul (0.83-4.51); Lymphocyte % 50.7 % (19-41); Mean Corp Hgb Conc 32.2 g/dL (32-36); Mean Corpuscular Hgb 35.6 pg (27.0-32.0); Mean Corpuscular Volume 110.7 fL (80-94); Mean Platelet Vol. 9.9 fl (6.2-12.0); Monocyte# 0.06 X10^3/uL; Monocyte% 2.9 % (0-10); NRBC Flagged by Analyzer 0 % (0-5); Neutrophil # 0.88 X10^3/uL (2.7-7.7); Neutrophil % 42.5 % (47-70); POSITIVE COUNT YES; POSITIVE DIFFERENTIAL YES; POSITIVE MORPHOLOGY YES; Platelet Count 92 K/mm3 (150-450); RBC Distribution Width CV 17.4 % (11.6-14.6); RBC Distribution Width SD 71.2 fl (35.1-43.9); Red Blood Count 2.33 M/mm3 (4.6-6.2); White Blood Count 2.1 K/mm3 (4.4-11.0)
[2022-03-12 09:45] LABS: ALB/GLOB Ratio 0.7 RATIO (0.9-2.4); AST(SGOT) 14 U/L (15-37); Alanine Aminotransfer ALT/SGPT 25 U/L (16-61); Albumin, Serum 2.9 g/dL (3.2-5.0); Alkaline Phosphatase 124 U/L (45-117); Anion Gap 6 (5-15); BUN 13 mg/dL (7-18); BUN/Creat Ratio 20.8 RATIO (10-20); Calcium,Total 8.8 mg/dL (8.5-10.1); Chloride 106 mmol/L (98-107); Creatinine, Serum 0.62 mg/dL (0.70-1.30); EST Glomerular Filtration Rate 137 mL/min (>60); Est Glom Filt Rate - Afr Amer 166 mL/min (>60); Globulin 4.2 g/dL (2.2-4.2); Glucose 114 mg/dL (74-106); Potassium 3.9 mmol/L (3.5-5.1); Protein, Total 7.1 g/dL (6.4-8.2); Sodium Level 140 mmol/L (136-145)
[2022-03-12 09:47] LABS: Atypical Lymphocyte 1+ %; Differential Indicated SCAN CRITERIA MET
[2022-03-12 09:48] LABS: Anisocytosis 2+
[2022-03-12 09:49] LABS: Hypochromasia 2+; Macrocytosis 1+
[2022-03-12 09:50] LABS: Ovalocyte 2+
[2022-03-12 09:51] LABS: Platelet Estimate MOD DEC (ADEQ)
== END | disposition home or self-care (01) ==
LOC: MEDOUTP 08:52
PROVIDERS: PCP Family Medicine; Referring Provider Internal Medicine Hematology; Visit Provider Internal Medicine Hematology
DX: Z45.2 Encounter for adjustment and management of vascular access device (principal); D46.9 Myelodysplastic syndrome, unspecified
CPT/HCPCS: 36592; 80053; 85025; A4216

== ENCOUNTER → 2022-03-16 | Outpatient (CLI) | payer MEDICARE, SELFPAY ==
--- NOTE | 2022-03-16 09:32 | NURSING ---
PICC will not give enough blood for labs today. Lab will come and draw peripherally.
[2022-03-16 09:33] LABS: Absolute Neutrophil Count 0.6 X10^3/uL (2.0-7.7); Basophil# 0.01 X10^3/uL; Basophil% 0.5 % (0-1); Eosinophil# 0.07 X10^3/uL; Eosinophils% 3.8 % (0-5); Hematocrit 25.8 % (40-54); Hemoglobin 8.4 g/dL (13.0-16.5); Lymphocyte % 59.1 % (19-41); Mean Corp Hgb Conc 32.6 g/dL (32-36); Mean Corpuscular Hgb 35.9 pg (27.0-32.0); Mean Corpuscular Volume 110.3 fL (80-94); Mean Platelet Vol. 10.8 fl (6.2-12.0); Monocyte# 0.03 X10^3/uL; Monocyte% 1.6 % (0-10); NRBC Flagged by Analyzer 0 % (0-5); Neutrophil # 0.64 X10^3/uL (2.7-7.7); Neutrophil % 34.5 % (47-70); POSITIVE COUNT YES; POSITIVE DIFFERENTIAL YES; POSITIVE MORPHOLOGY YES; RBC Distribution Width CV 17.2 % (11.6-14.6); RBC Distribution Width SD 69.6 fl (35.1-43.9); Red Blood Count 2.34 M/mm3 (4.6-6.2); White Blood Count 1.9 K/mm3 (4.4-11.0)
[2022-03-16 09:41] LABS: Differential Indicated SCAN CRITERIA MET; Platelet Count 41 K/mm3 (150-450)
[2022-03-16 09:47] LABS: ALB/GLOB Ratio 0.8 RATIO (0.9-2.4); AST(SGOT) 16 U/L (15-37); Alanine Aminotransfer ALT/SGPT 20 U/L (16-61); Albumin, Serum 3.1 g/dL (3.2-5.0); Alkaline Phosphatase 131 U/L (45-117); Anion Gap 8 (5-15); Anisocytosis 2+; BUN 15 mg/dL (7-18); BUN/Creat Ratio 23.7 RATIO (10-20); Calcium,Total 8.9 mg/dL (8.5-10.1); Chloride 107 mmol/L (98-107); Creatinine, Serum 0.63 mg/dL (0.70-1.30); Differential Comment SCANNED; EST Glomerular Filtration Rate 135 mL/min (>60); Est Glom Filt Rate - Afr Amer 164 mL/min (>60); Glucose 168 mg/dL (74-106); Hypochromasia 1+; Macrocytosis 1+; Microcytosis 1+; Platelet Estimate MKD DEC (ADEQ); Potassium 3.7 mmol/L (3.5-5.1); Protein, Total 7.1 g/dL (6.4-8.2); Reactive Lymphocyte 1+; Sodium Level 142 mmol/L (136-145)
[2022-03-16 09:48] LABS: Ovalocyte 1+
[2022-03-16 17:27] LABS: Xtra Tube EP Lab EXTRA TUBE
[2022-03-17 12:41] LABS: Pathologist Review Reviewed
== END | disposition home or self-care (01) ==
LOC: MEDOUTP 08:57
PROVIDERS: PCP Family Medicine; Referring Provider Internal Medicine Hematology; Visit Provider Internal Medicine Hematology
DX: Z45.2 Encounter for adjustment and management of vascular access device (principal); D46.9 Myelodysplastic syndrome, unspecified
CPT/HCPCS: 36592; 80053; 85025; A4216

== ENCOUNTER → 2022-03-23 | Outpatient (CLI) | payer MEDICARE, SELFPAY ==
[2022-03-23 09:41] LABS: Absolute Lymphocyte Count 0.99 X10^3/uL (0.83-4.51); Absolute Neutrophil Count 0.1 X10^3/uL (2.0-7.7); Eosinophil# 0.05 X10^3/uL; Eosinophils% 4.3 % (0-5); Hematocrit 22.4 % (40-54); Hemoglobin 7.1 g/dL (13.0-16.5); Lymphocyte # 0.99 X10^3/ul (0.83-4.51); Lymphocyte % 85.3 % (19-41); Mean Corp Hgb Conc 31.7 g/dL (32-36); Mean Corpuscular Volume 113.7 fL (80-94); Mean Platelet Vol. 11.5 fl (6.2-12.0); Monocyte# 0.04 X10^3/uL; Monocyte% 3.4 % (0-10); NRBC Flagged by Analyzer 1.7 % (0-5); Neutrophil # 0.08 X10^3/uL (2.7-7.7); POSITIVE COUNT YES; POSITIVE DIFFERENTIAL YES; POSITIVE MORPHOLOGY YES; Platelet Count 37 K/mm3 (150-450); RBC Distribution Width CV 18.6 % (11.6-14.6); RBC Distribution Width SD 75.1 fl (35.1-43.9); Red Blood Count 1.97 M/mm3 (4.6-6.2); White Blood Count 1.2 K/mm3 (4.4-11.0)
[2022-03-23 09:58] LABS: ALB/GLOB Ratio 0.8 RATIO (0.9-2.4); AST(SGOT) 15 U/L (15-37); Alanine Aminotransfer ALT/SGPT 19 U/L (16-61); Alkaline Phosphatase 116 U/L (45-117); Anion Gap 4 (5-15); BUN 12 mg/dL (7-18); BUN/Creat Ratio 19.1 RATIO (10-20); Calcium,Total 8.8 mg/dL (8.5-10.1); Chloride 107 mmol/L (98-107); Creatinine, Serum 0.63 mg/dL (0.70-1.30); EST Glomerular Filtration Rate 136 mL/min (>60); Est Glom Filt Rate - Afr Amer 165 mL/min (>60); Globulin 3.9 g/dL (2.2-4.2); Glucose 125 mg/dL (74-106); Protein, Total 6.9 g/dL (6.4-8.2); Sodium Level 140 mmol/L (136-145)
[2022-03-23 10:11] LABS: Differential Indicated SCAN CRITERIA MET
[2022-03-23 11:23] LABS: Anisocytosis 2+
[2022-03-23 11:24] LABS: Ovalocyte 1+; Platelet Estimate MKD DEC (ADEQ)
[2022-03-23 17:32] LABS: Xtra Tube EP Lab EXTRA TUBE
[2022-03-25 09:36] LABS: Pathologist Review Reviewed
== END | disposition home or self-care (01) ==
LOC: MEDOUTP 09:00
PROVIDERS: PCP Family Medicine; Referring Provider Internal Medicine Hematology; Visit Provider Internal Medicine Hematology
DX: Z45.2 Encounter for adjustment and management of vascular access device (principal); D46.9 Myelodysplastic syndrome, unspecified
CPT/HCPCS: 36592; 80053; 85025; 86850; 86900; 86901; 86920; 86922; A4216

== ENCOUNTER → 2022-03-24 | Outpatient (CLI) | payer MEDICARE, SELFPAY ==
[2022-03-24] MEDS: Acetaminophen 325 MG Tablet 650 MG PO (12:52)
[2022-03-24] MEDS: DiphenhydrAMINE 25 MG Capsule PO (12:53)
[2022-03-24 13:00] VITALS: PULSE 69; RESP 16; TEMP 36.3; O2SAT 99
[2022-03-24 13:41] VITALS: BP 114/69; PULSE 67; RESP 16; TEMP 36.3; O2SAT 99
[2022-03-24 14:46] VITALS: BP 141/70; PULSE 63; TEMP 36.1; O2SAT 100
[2022-03-24 15:44] VITALS: BP 107/51; PULSE 62; TEMP 36.2; O2SAT 100
== END | disposition home or self-care (01) ==
LOC: MEDOUTP 12:45
PROVIDERS: PCP Family Medicine; Referring Provider Internal Medicine Hematology; Visit Provider Internal Medicine Hematology
DX: D46.9 Myelodysplastic syndrome, unspecified (principal)
CPT/HCPCS: 36430; 86850; 86900; 86901; 86920; 86922; J7040; J7050; P9040; A4216

== ENCOUNTER 2022-03-26 09:00 | Outpatient (CLI) | payer MEDICARE, SELFPAY ==
[2022-03-26 09:41] LABS: Absolute Lymphocyte Count 0.82 X10^3/uL (0.83-4.51); Absolute Neutrophil Count 0.1 X10^3/uL (2.0-7.7); Eosinophil# 0.04 X10^3/uL; Eosinophils% 4.2 % (0-5); Hematocrit 26.9 % (40-54); Hemoglobin 8.8 g/dL (13.0-16.5); Lymphocyte # 0.82 X10^3/ul (0.83-4.51); Lymphocyte % 86.3 % (19-41); Mean Corp Hgb Conc 32.7 g/dL (32-36); Mean Corpuscular Hgb 35.3 pg (27.0-32.0); Mean Platelet Vol. 11.4 fl (6.2-12.0); Monocyte# 0.03 X10^3/uL; Monocyte% 3.2 % (0-10); NRBC Flagged by Analyzer 0 % (0-5); Neutrophil # 0.06 X10^3/uL (2.7-7.7); Neutrophil % 6.3 % (47-70); POSITIVE COUNT YES; POSITIVE DIFFERENTIAL YES; POSITIVE MORPHOLOGY YES; Platelet Count 78 K/mm3 (150-450); RBC Distribution Width CV 21.3 % (11.6-14.6); RBC Distribution Width SD 83.5 fl (35.1-43.9); Red Blood Count 2.49 M/mm3 (4.6-6.2)
[2022-03-26 09:52] LABS: Differential Indicated SCAN CRITERIA MET
[2022-03-26 10:10] LABS: Atypical Lymphocyte RARE %; Differential Comment SCANNED
--- NOTE | 2022-03-26 10:44 | NURSING ---
Spoke with patient's Cristina and advised of patient's most recent lab results. Reviewed ANC and low WBC counts with concerns of patient's noted redness and irritation at PICC insertion site. Cristina verbalized understanding and will plan to contact [facility] doctor's office at this time and will follow up as needed. Luz pinto
--- NOTE | 2022-03-26 16:02 | NURSING ---
Blood cultures obtained from PICC line prior to pulling line per order. Patient tolerated well. Tip of PICC line cultured as well. Patient tolerated well. Occlusive dressing applied and patient and advised to change this evening to keep clean dry dressing on and intact while healing both verbalized understanding. Patient's PICC line measured and 43cm in length. Patient monitored for 15-20 minutes post having line pulled with no s/s of bleeding. Patient denies any other questions at this time. Luz pinto
[2022-03-27 15:34] LABS: Pathologist Review Reviewed
== END 2022-03-26 23:59 | disposition home or self-care (01) ==
LOC: MEDOUTP 09:00
PROVIDERS: PCP Family Medicine; Referring Provider Internal Medicine Hematology; Visit Provider Internal Medicine Hematology
DX: Z45.2 Encounter for adjustment and management of vascular access device (principal); D46.9 Myelodysplastic syndrome, unspecified
CPT/HCPCS: 36592; 85025; 87040; 87070; 87205; A4216

== ENCOUNTER 2022-04-06 11:09 | Outpatient (RCR) | payer MEDICARE, SELFPAY ==
[2022-03-30 10:44] LABS: Absolute Lymphocyte Count 0.89 X10^3/uL (0.83-4.51); Basophil# 0.01 X10^3/uL; Eosinophil# 0.02 X10^3/uL; Hematocrit 27.5 % (40-54); Hemoglobin 9.1 g/dL (13.0-16.5); Lymphocyte # 0.89 X10^3/ul (0.83-4.51); Mean Corp Hgb Conc 33.1 g/dL (32-36); Mean Corpuscular Hgb 36.4 pg (27.0-32.0); Mean Platelet Vol. 10.2 fl (6.2-12.0); Monocyte# 0.04 X10^3/uL; NRBC Flagged by Analyzer 0 % (0-5); Neutrophil # 0.04 X10^3/uL (2.7-7.7); POSITIVE COUNT YES; POSITIVE DIFFERENTIAL YES; POSITIVE MORPHOLOGY YES; Platelet Count 161 K/mm3 (150-450); RBC Distribution Width CV 21.2 % (11.6-14.6)
[2022-03-30 10:45] LABS: Differential Indicated SCAN CRITERIA MET
[2022-03-30 11:11] LABS: ALB/GLOB Ratio 0.8 RATIO (0.9-2.4); AST(SGOT) 16 U/L (15-37); Alanine Aminotransfer ALT/SGPT 21 U/L (16-61); Albumin, Serum 3.3 g/dL (3.2-5.0); Alkaline Phosphatase 116 U/L (45-117); Anion Gap 5 (5-15); BUN 11 mg/dL (7-18); BUN/Creat Ratio 17.5 RATIO (10-20); Calcium,Total 9.2 mg/dL (8.5-10.1); Chloride 107 mmol/L (98-107); Creatinine, Serum 0.63 mg/dL (0.70-1.30); EST Glomerular Filtration Rate 136 mL/min (>60); Est Glom Filt Rate - Afr Amer 165 mL/min (>60); Globulin 4.4 g/dL (2.2-4.2); Glucose 105 mg/dL (74-106); Potassium 4.3 mmol/L (3.5-5.1); Protein, Total 7.7 g/dL (6.4-8.2); Sodium Level 141 mmol/L (136-145)
[2022-03-30 11:17] LABS: Anisocytosis 1+
[2022-04-01 14:03] LABS: Pathologist Review Reviewed
[2022-04-02 14:15] LABS: Absolute Lymphocyte Count 0.89 X10^3/uL (0.83-4.51); Absolute Neutrophil Count 0.1 X10^3/uL (2.0-7.7); Basophil# 0.01 X10^3/uL; Eosinophil# 0.02 X10^3/uL; Eosinophils% 1.9 % (0-5); Hematocrit 27.5 % (40-54); Hemoglobin 8.7 g/dL (13.0-16.5); Lymphocyte # 0.89 X10^3/ul (0.83-4.51); Lymphocyte % 84.8 % (19-41); Mean Corp Hgb Conc 31.6 g/dL (32-36); Mean Corpuscular Hgb 35.2 pg (27.0-32.0); Mean Corpuscular Volume 111.3 fL (80-94); Monocyte# 0.08 X10^3/uL; Monocyte% 7.6 % (0-10); NRBC Flagged by Analyzer 0 % (0-5); Neutrophil # 0.05 X10^3/uL (2.7-7.7); Neutrophil % 4.7 % (47-70); POSITIVE COUNT YES; POSITIVE DIFFERENTIAL YES; POSITIVE MORPHOLOGY YES; Platelet Count 193 K/mm3 (150-450); RBC Distribution Width CV 20.9 % (11.6-14.6); RBC Distribution Width SD 84.8 fl (35.1-43.9); Red Blood Count 2.47 M/mm3 (4.6-6.2)
[2022-04-02 14:27] LABS: Differential Indicated SCAN CRITERIA MET; White Blood Count 1.1 K/mm3 (4.4-11.0)
[2022-04-02 14:33] LABS: Anisocytosis 2+; Ovalocyte 1+; Reactive Lymphocyte 1+; Stomatocyte 1+; Tear Drop Cell 1+
[2022-04-03 15:35] LABS: Pathologist Review Reviewed
[2022-04-06 11:35] LABS: Absolute Lymphocyte Count 0.77 X10^3/uL (0.83-4.51); Absolute Neutrophil Count 0.2 X10^3/uL (2.0-7.7); Hematocrit 28.3 % (40-54); Hemoglobin 9.3 g/dL (13.0-16.5); Lymphocyte # 0.77 X10^3/ul (0.83-4.51); Mean Corp Hgb Conc 32.9 g/dL (32-36); Mean Corpuscular Hgb 36.5 pg (27.0-32.0); Mean Platelet Vol. 9.7 fl (6.2-12.0); Monocyte# 0.07 X10^3/uL; Monocyte% 6.5 % (0-10); NRBC Flagged by Analyzer 0 % (0-5); Neutrophil # 0.22 X10^3/uL (2.7-7.7); Neutrophil % 20.6 % (47-70); POSITIVE COUNT YES; POSITIVE DIFFERENTIAL YES; POSITIVE MORPHOLOGY YES; Platelet Count 184 K/mm3 (150-450); RBC Distribution Width CV 21.1 % (11.6-14.6); RBC Distribution Width SD 85.4 fl (35.1-43.9); Red Blood Count 2.55 M/mm3 (4.6-6.2)
[2022-04-06 11:43] LABS: Differential Indicated SCAN CRITERIA MET; White Blood Count 1.1 K/mm3 (4.4-11.0)
[2022-04-06 11:54] LABS: Albumin, Serum 3.2 g/dL (3.2-5.0); BUN 15 mg/dL (7-18); BUN/Creat Ratio 25.7 RATIO (10-20); Creatinine, Serum 0.58 mg/dL (0.70-1.30); EST Glomerular Filtration Rate 149 mL/min (>60); Est Glom Filt Rate - Afr Amer 180 mL/min (>60); Globulin 4.2 g/dL (2.2-4.2); Glucose 152 mg/dL (74-106); Protein, Total 7.4 g/dL (6.4-8.2)
[2022-04-06 11:55] LABS: ALB/GLOB Ratio 0.8 RATIO (0.9-2.4); AST(SGOT) 19 U/L (15-37); Alanine Aminotransfer ALT/SGPT 26 U/L (16-61); Alkaline Phosphatase 112 U/L (45-117); Anion Gap 5 (5-15); Calcium,Total 9.1 mg/dL (8.5-10.1); Chloride 108 mmol/L (98-107); Potassium 4.2 mmol/L (3.5-5.1); Sodium Level 142 mmol/L (136-145)
[2022-04-06 11:57] LABS: Anisocytosis 2+
[2022-04-06 19:30] LABS: Xtra Tube EP Lab EXTRA TUBE
[2022-04-07 12:26] LABS: Pathologist Review Reviewed
== END 2022-04-07 23:59 ==
LOC: PAVLAB 11:09
PROVIDERS: PCP Family Medicine; Referring Provider Internal Medicine Hematology; Visit Provider Internal Medicine Hematology
DX: D46.9 Myelodysplastic syndrome, unspecified (principal); Z71.89 Other specified counseling
CPT/HCPCS: 36415; 80053; 85025

== ENCOUNTER 2022-05-05 09:23 | Outpatient (RCR) | payer MEDICARE, SELFPAY ==
[2022-04-28 11:13] LABS: Absolute Lymphocyte Count 1.23 X10^3/uL (0.83-4.51); Absolute Neutrophil Count 0.3 X10^3/uL (2.0-7.7); Basophil# 0.01 X10^3/uL; Basophil% 0.6 % (0-1); Eosinophil# 0.03 X10^3/uL; Eosinophils% 1.9 % (0-5); Hematocrit 26.2 % (40-54); Hemoglobin 8.6 g/dL (13.0-16.5); Lymphocyte # 1.23 X10^3/ul (0.83-4.51); Lymphocyte % 76.4 % (19-41); Mean Corp Hgb Conc 32.8 g/dL (32-36); Mean Corpuscular Hgb 36.6 pg (27.0-32.0); Mean Corpuscular Volume 111.5 fL (80-94); Mean Platelet Vol. 14.1 fl (6.2-12.0); Monocyte# 0.03 X10^3/uL; Monocyte% 1.9 % (0-10); NRBC Flagged by Analyzer 2.5 % (0-5); Neutrophil % 18.6 % (47-70); POSITIVE COUNT YES; POSITIVE DIFFERENTIAL YES; POSITIVE MORPHOLOGY YES; RBC Distribution Width CV 18.7 % (11.6-14.6); RBC Distribution Width SD 77.3 fl (35.1-43.9); Red Blood Count 2.35 M/mm3 (4.6-6.2); White Blood Count 1.6 K/mm3 (4.4-11.0)
[2022-04-28 11:20] LABS: Platelet Count 23 K/mm3 (150-450)
[2022-04-28 11:22] LABS: Differential Indicated SCAN CRITERIA MET
[2022-04-28 11:30] LABS: ALB/GLOB Ratio 0.9 RATIO (0.9-2.4); AST(SGOT) 14 U/L (15-37); Alanine Aminotransfer ALT/SGPT 28 U/L (16-61); Albumin, Serum 3.1 g/dL (3.2-5.0); Alkaline Phosphatase 114 U/L (45-117); Anion Gap 4 (5-15); BUN 15 mg/dL (7-18); BUN/Creat Ratio 28.7 RATIO (10-20); Calcium,Total 8.9 mg/dL (8.5-10.1); Chloride 107 mmol/L (98-107); Creatinine, Serum 0.52 mg/dL (0.70-1.30); EST Glomerular Filtration Rate 168 mL/min (>60); Est Glom Filt Rate - Afr Amer 204 mL/min (>60); Globulin 3.6 g/dL (2.2-4.2); Glucose 150 mg/dL (74-106); Potassium 3.8 mmol/L (3.5-5.1); Protein, Total 6.7 g/dL (6.4-8.2); Sodium Level 141 mmol/L (136-145)
[2022-04-28 11:42] LABS: Differential Comment SCANNED
[2022-04-28 11:43] LABS: Anisocytosis 2+; Macrocytosis 1+; Microcytosis 1+; Platelet Estimate MKD DEC (ADEQ); Reactive Lymphocyte 2+
[2022-04-28 19:06] LABS: Xtra Tube EP Lab EXTRA TUBE
[2022-04-29 13:33] LABS: Pathologist Review Reviewed
[2022-05-05 09:46] LABS: Absolute Lymphocyte Count 0.56 X10^3/uL (0.83-4.51); Eosinophil# 0.01 X10^3/uL; Eosinophils% 1.6 % (0-5); Hematocrit 23.4 % (40-54); Hemoglobin 7.6 g/dL (13.0-16.5); Lymphocyte # 0.56 X10^3/ul (0.83-4.51); Lymphocyte % 87.5 % (19-41); Mean Corp Hgb Conc 32.5 g/dL (32-36); Mean Corpuscular Hgb 37.4 pg (27.0-32.0); Mean Corpuscular Volume 115.3 fL (80-94); Monocyte# 0.03 X10^3/uL; Monocyte% 4.7 % (0-10); NRBC Flagged by Analyzer 0 % (0-5); Neutrophil # 0.03 X10^3/uL (2.7-7.7); Neutrophil % 4.6 % (47-70); POSITIVE COUNT YES; POSITIVE DIFFERENTIAL YES; POSITIVE MORPHOLOGY YES; RBC Distribution Width CV 18.4 % (11.6-14.6); RBC Distribution Width SD 78.3 fl (35.1-43.9); Red Blood Count 2.03 M/mm3 (4.6-6.2)
[2022-05-05 09:57] LABS: Differential Indicated SCAN CRITERIA MET; Platelet Count 19 K/mm3 (150-450); White Blood Count 0.6 K/mm3 (4.4-11.0)
[2022-05-05 10:03] LABS: ALB/GLOB Ratio 0.7 RATIO (0.9-2.4); AST(SGOT) 13 U/L (15-37); Alanine Aminotransfer ALT/SGPT 21 U/L (16-61); Alkaline Phosphatase 118 U/L (45-117); Anion Gap 7 (5-15); BUN 14 mg/dL (7-18); Calcium,Total 9.1 mg/dL (8.5-10.1); Chloride 101 mmol/L (98-107); Creatinine, Serum 0.58 mg/dL (0.70-1.30); EST Glomerular Filtration Rate 148 mL/min (>60); Est Glom Filt Rate - Afr Amer 179 mL/min (>60); Globulin 4.3 g/dL (2.2-4.2); Glucose 189 mg/dL (74-106); Potassium 3.8 mmol/L (3.5-5.1); Protein, Total 7.3 g/dL (6.4-8.2); Sodium Level 136 mmol/L (136-145)
[2022-05-05 10:21] LABS: Anisocytosis 3+; Differential Comment SCANNED
[2022-05-07 09:18] LABS: Pathologist Review Reviewed
== END 2022-05-05 23:59 ==
LOC: PAVLAB 09:23
PROVIDERS: PCP Family Medicine; Referring Provider Internal Medicine Hematology; Visit Provider Internal Medicine Hematology
DX: D46.9 Myelodysplastic syndrome, unspecified (principal); Z71.89 Other specified counseling
CPT/HCPCS: 36415; 80053; 85025; 86850; 86900; 86901; 86920; 86922

== ENCOUNTER 2022-05-06 13:48 | Inpatient (IN) | payer MEDICARE, SELFPAY ==
[2022-05-06] VITALS (9 sets, daily range): BP systolic 91–150; BP diastolic 58–82; PULSE 71–95; RESP 16–34; TEMP 37.9–39.3; O2SAT 92–96; BMI 27.3; BMI 27.7
--- NOTE | 2022-05-06 14:03 | EKG12_ITS ---
Test Reason : Blood Pressure : / mmHG Vent. Rate : 074 BPM Atrial Rate : 074 BPM P-R Int : 192 ms QRS Dur : 104 ms QT Int : 380 ms P-R-T Axes : 019 -42 109 degrees QTc Int : 421 ms Normal sinus rhythm Left axis deviation Inferior infarct , age undetermined Anterolateral infarct , age undetermined Abnormal ECG Confirmed by ADE AYALA, JÚNIOR ([id number]), electronic news gathering editor MARLEY YAN ([id number]) on 05/11/2022 9:54:58 AM Referred By: VINOD Confirmed By:SUSAN BOOKER MD
--- NOTE | 2022-05-06 14:23 | EX.ED.DYSGE1 ---
HPI History of Present Illness Chief Complaint: General Illness Narrative Narrative: C6-year-old male past medical history of MDS/myelodysplastic disease/AML presents with fever, and weakness since yesterday evening. According to his , his oncologist wanted him evaluated because of his weakness in his bilateral upper extremities yesterday evening. Today he had a fever of 101 ?F. states that he was weak that he could not push himself up with his arms. He has had a cough and the fever today while he was getting platelet IV therapy, and blood for his hemoglobin and thrombocytopenia associated with his disease. He had chemotherapy 2 weeks ago, he usually gets it every 6 weeks. At times I have to postpone it because his numbers go so low. He is also having urinary frequency. He has chronic shortness of breath, but quit smoking 20 years ago. He has a cough. states that his infections usually are not respiratory however. [facility] Medical History Acute myelogenous leukemia Atherosclerotic heart disease of [place] coronary artery without angina pectoris Bilateral carotid artery stenosis Candidiasis of skin CVA (cerebral vascular accident) Erythema Essential (primary) hypertension Hyperlipidemia Ischemic cardiomyopathy Myelodysplasia (myelodysplastic syndrome) Old inferior wall myocardial infarction Pancytopenia Rheumatoid arthritis Septic arthritis of knee, left Home Medications levofloxacin 500 mg tablet 500 mg PO DAILY INFECTION 05/04/21 [History Last Taken 05/06/22] metformin 500 mg tablet 500 mg PO BID DIABETES 06/12/21 [History Last Taken 05/06/22] oxycodone 5 mg tablet 5 mg PO Q4H PRN Pain 06/12/21 [History Last Taken 06/11/21 08:00] methadone 5 mg tablet 5 mg PO TID 07/15/21 [History Last Taken 05/06/22] sennosides 8.6 mg-docusate sodium 50 mg capsule (Senna Plus) 1 tab-cap PO DAILY PRN Constipation 08/29/21 [History Last Taken Unknown] ondansetron HCl 4 mg tablet 4 mg PO Q6H PRN Nausea 11/14/21 [History Last Taken 05/06/22] acyclovir 800 mg tablet 800 mg PO BID INFECTION 05/06/22 [History Last Taken 05/06/22] benzocaine 15 mg-menthol 3.6 mg lozenges (Cepacol Sore Throat (benzocaine-menthol)) 1 ceci mucous membrane Q2H PRN SORE THROAT 05/06/22 [History Last Taken Unknown] carvedilol 6.25 mg tablet 6.25 mg PO BID HEART 05/06/22 [History Last Taken 05/06/22] cyanocobalamin (vitamin B-12) 1,000 mcg tablet (Vitamin B-12) 1,000 mcg PO DAILY SUPPLEMENT 05/06/22 [History Last Taken 05/06/22] fluconazole 200 mg tablet 400 mg PO DAILY ANTIFUNGAL 05/06/22 [History Last Taken 05/06/22] fluoxetine 40 mg capsule 40 mg PO DAILY ANXIETY/DEPRESSION 05/06/22 [History Last Taken 05/06/22] gabapentin 100 mg capsule 100 mg PO 4X/DAY NERVE PAIN 05/06/22 [History Last Taken 05/06/22] multivitamin 1 tab PO DAILY HEALTH MAINTENANCE 05/06/22 [History Last Taken 05/06/22] nitroglycerin 0.4 mg sublingual tablet (Nitrostat) 0.4 mg sublingual Q5M PRN CHEST PAIN 05/06/22 [History Last Taken Unknown] ranolazine 500 mg tablet,extended release,12 hr 500 mg PO DAILY ANGINA 05/06/22 [History Last Taken 05/06/22] rosuvastatin 10 mg tablet (Crestor) 10 mg PO DAILY CHOLESTEROL 05/06/22 [History Last Taken 05/06/22] vitamin K2 100 mcg capsule 100 mcg PO DAILY SUPPLEMENT 05/06/22 [History Last Taken 05/06/22] Allergy/AdvReac Type Severity Reaction Status Date / Time guaifenesin AdvReac Other Verified 05/06/22 13:59 Family History Father CAD (coronary artery disease) Diabetes Mother , related to sepsis from diverticulitis Arthritis Surgical History H/O cervical spine surgery (03/2019) H/O coronary artery bypass surgery (05/22/03) History of bone marrow biopsy History of coronary artery stent placement (04/14/16) History of left knee surgery (08/2018) History of shoulder surgery Social History Smoking Status: Former smoker alcohol intake: never substance use type: does not use caffeine: Yes Type: coffee Number of servings: 2 what type of physical activity do you participate in: walking and bicycling frequency: daily duration: 60-90 minutes/day seatbelt use: always do you feel safe at home: Yes ROS ROS ED ROS Narrative Constitutional: Positive fever, no chills. HEENT: No sore throat. No neck pain. No loss of vision. No rhinorrhea. Cardiovascular: No chest pain. No palpitations. No pedal edema. Respiratory: Positive cough, no shortness of breath. Abdominal: No abdominal pain. No nausea. No vomiting. Genitourinary: No dysuria. No hematuria. Urinary urgency/frequency. Musculoskeletal: No myalgias. No arthralgias. Generalized weakness, especially bilateral upper extremities. Neurologic: No headaches. No dizziness. No lightheadedness. Skin: No rash. No change in color. Psychiatric: No depression. No anxiety. EXAM Physical Exam Narrative Exam Narrative: Temperature 100.7 ?F vital signs noted. Nontoxic-appearing. HEENT: Normocephalic. Atraumatic. PERRL, EOMI. Neck soft and supple. No point tenderness or step off. Cardiovascular: Regular rate and rhythm. No murmurs, rubs, or gallops appreciated. Respiratory: No tachypnea. Occasional bilateral expiratory wheezes, right greater than left with decreased breath sounds bilateral bases. No distress. No accessory muscle use. Gastrointestinal: Abdomen soft, nontender, with normoactive bowel sounds. No rebound or guarding. Neurological: Awake. Alert. Nonfocal, nonlateralizing. Skin: No rash. Normal color. No pallor. Musculoskeletal: No pedal edema. Full range of motion extremities. Const Vital Signs: 05/06/22 13:49 05/06/22 13:56 05/06/22 15:34 Temperature 100.7 F H 100.7 F H Temperature Source Oral Oral Pulse Rate 71 75 Respiratory Rate 34 H 28 H Respiratory Effort Labored Respiratory Pattern Normal Blood Pressure 121/82 H 91/64 Blood Pressure Mean 95 73 Pulse Ox 95 92 Oxygen Delivery Method Room Air Room Air 05/06/22 16:00 05/06/22 16:52 05/06/22 18:04 Temperature 100.4 F H 102.6 F H Temperature Source Oral Oral Pulse Rate 75 73 95 Respiratory Rate 24 H 24 H 28 H Respiratory Effort Respiratory Pattern Blood Pressure 102/58 L 110/60 150/71 H Blood Pressure Mean 72 76 97 Pulse Ox 93 94 94 Oxygen Delivery Method Room Air Room Air Room Air 05/06/22 18:04 Temperature 102.6 F H Temperature Source Oral Pulse Rate 93 Respiratory Rate 22 H Respiratory Effort Respiratory Pattern Blood Pressure 150/71 H Blood Pressure Mean 97 Pulse Ox 94 Oxygen Delivery Method Room Air MDM MDM MDM Narrative Medical decision making narrative: Neutropenic fever work-up was pursued. I did review his laboratory work from 2 days ago and he had a low WBC count less than 1. I will repeat his laboratory work after he received platelets and packed red blood cells today. He will be swabbed for COVID and influenza. I will check a chest x-ray and a urinalysis to look for his source of fever. Blood cultures and urine cultures were also obtained. EKG was obtained and interpreted by myself as normal sinus rhythm at 74 bpm without ectopy or acute ST changes. No STEMI. I reviewed his current laboratory work. He is neutropenic at 0.5, was 0.6 a few days ago. Hemoglobin has improved to 8.4. He has chronic thrombocytopenia and his platelet count is 44, improved over previous. Neutrophil percentage is 5.9. Absolute neutrophil count is 0.0. Looking at his electrolyte panel and reviewing it, sodium slightly low at 135 with creatinine of 0.65 and a BUN of 13. Initially had been bolused 500 mL of fluid. His lactic acid is elevated at 2.6. Chest x-ray interpreted by myself shows no evidence of an acute pneumonia. I reviewed the radiology report which confirms my interpretation. His COVID and influenza swabs are negative. He attempted to give a urine sample for analysis, but was unable to place urine into the container. He was started on neutropenic fever sepsis antibiotics in the form of vancomycin and Zosyn. I do feel that with his elevated lactic acid, that he requires admission for his neutropenic fever. He had a transient dip in his blood pressure systolically to 91. He was given an additional 2 L of IV fluids. Currently his blood pressure is 110 systolic. Patient will be discussed with the hospitalist. I discussed the patient with Dr. Ardon. Additionally, I did review his urinalysis dipstick which is negative for infection. Disposition is admit. History & Record Review Discussion w/independent historian: Patient and Significant other Additional record(s) reviewed:: Prior ED visit and Prior labs Lab Data Attestation: I reviewed the patient's lab results. Labs: Laboratory Results - last 24 hr 05/06/22 05/06/22 05/06/22 14:45 14:45 14:45 WBC 0.5 L* RBC 2.34 L Hgb 8.4 L Hct 24.7 L MCV 105.6 H D MCH 35.9 H MCHC 34.0 RDW Std Deviation 79.8 H RDW Coeff of Jamie 21.3 H Plt Count 44 L* MPV 10.6 Immature Gran % (Auto) 3.800 H Neut % (Auto) 5.9 L Lymph % (Auto) 86.5 H [place] % (Auto) 3.8 Eos % (Auto) 0.0 Baso % (Auto) 0.0 Absolute Neuts (auto) 0.0 L Absolute Lymphs (auto) 0.45 L Nucleated RBC % 0 Differential Comment SCANNED Diff Path Review May foll Platelet Estimate MKD DEC Hypochromasia 1+ Anisocytosis 2+ Macrocytosis 2+ Sodium 135 L Potassium 4.4 Chloride 99 Carbon Dioxide 28.0 Anion Gap 8 BUN 13 Creatinine 0.65 L Estim Creat Clear Calc 111.08 Est GFR (MDRD) Af Amer 160 Est GFR (MDRD) Non-Af 132 BUN/Creatinine Ratio 20.1 H Glucose 93 Lactic Acid 2.6 H* Calcium 9.3 Magnesium 1.8 Total Bilirubin 1.20 H AST 22 ALT 24 Alkaline Phosphatase 103 Total Protein 7.4 Albumin 3.0 L Globulin 4.4 H Albumin/Globulin Ratio 0.7 L Urine Color Urine Clarity Urine pH Ur Specific [place] Urine Protein Urine Glucose (UA) Urine Ketones Urine Occult Blood Urine Nitrite Urine Bilirubin Urine Urobilinogen Ur Leukocyte Esterase Urine RBC Urine WBC Ur Squamous Epith Cells Urine Bacteria Urine Mucus 05/06/22 17:05 WBC RBC Hgb Hct MCV MCH MCHC RDW Std Deviation RDW Coeff of Jamie Plt Count MPV Immature Gran % (Auto) Neut % (Auto) Lymph % (Auto) [place] % (Auto) Eos % (Auto) Baso % (Auto) Absolute Neuts (auto) Absolute Lymphs (auto) Nucleated RBC % Differential Comment Diff Path Review Platelet Estimate Hypochromasia Anisocytosis Macrocytosis Sodium Potassium Chloride Carbon Dioxide Anion Gap BUN Creatinine Estim Creat Clear Calc Est GFR (MDRD) Af Amer Est GFR (MDRD) Non-Af BUN/Creatinine Ratio Glucose Lactic Acid Calcium Magnesium Total Bilirubin AST ALT Alkaline Phosphatase Total Protein Albumin Globulin Albumin/Globulin Ratio Urine Color Yellow Urine Clarity Clear Urine pH 5.0 Ur Specific [place] 1.020 Urine Protein 15 H Urine Glucose (UA) Normal Urine Ketones Negative Urine Occult Blood Negative Urine Nitrite Negative Urine Bilirubin Negative Urine Urobilinogen Normal Ur Leukocyte Esterase Negative Urine RBC 0 SEEN Urine WBC 0 SEEN Ur Squamous Epith Cells 0 SEEN Urine Bacteria 0 SEEN Urine Mucus RARE Radiography Diagnostic Testing: Clinical Impression(s) from Imaging Studies Chest X-Ray 05/06/22 16:30 IMPRESSION: No radiographic evidence of acute cardiopulmonary disease. Electronically Signed: Víctor Bañuelos MD at 16:52 EST Reading Location ID and State: [facility] / [place] Tel , Service support , Discharge Plan Dx/Rx/DC Orders Clinical Impression: Neutropenic fever, Cough, Sepsis Disposition Disposition: Acute Care Hospital [facility] Discharge Date/Time: 05/06/22 18:22
[2022-05-06] MEDS: Acetaminophen 325 MG Tablet 650 MG PO (14:34)
[2022-05-06 15:10] LABS: ALB/GLOB Ratio 0.7 RATIO (0.9-2.4); AST(SGOT) 22 U/L (15-37); Alanine Aminotransfer ALT/SGPT 24 U/L (16-61); Alkaline Phosphatase 103 U/L (45-117); Anion Gap 8 (5-15); BUN 13 mg/dL (7-18); BUN/Creat Ratio 20.1 RATIO (10-20); Calcium,Total 9.3 mg/dL (8.5-10.1); Chloride 99 mmol/L (98-107); Creatinine, Serum 0.65 mg/dL (0.70-1.30); EST Glomerular Filtration Rate 132 mL/min (>60); Est Glom Filt Rate - Afr Amer 160 mL/min (>60); Estimated Creatinine Clearance 111.08 ml/min; Globulin 4.4 g/dL (2.2-4.2); Glucose 93 mg/dL (74-106); Magnesium 1.8 mg/dL (1.6-2.6); Potassium 4.4 mmol/L (3.5-5.1); Protein, Total 7.4 g/dL (6.4-8.2); Sodium Level 135 mmol/L (136-145)
[2022-05-06 15:27] LABS: Lactic Acid 2.6 mmol/L (0.4-1.9)
--- NOTE | 2022-05-06 15:43 | ED.RN ---
DR ATKINS NOTIFIED THAT PT IS TRIGGERING SEPSIS. STATES HE WILL PLACE ORDERS FOR SEPSIS IVF.
[2022-05-06] MEDS: 0.9% Normal Saline 1,000 ML 999 ML IV ×3 (15:47→19:17)
[2022-05-06 16:15] LABS: Absolute Lymphocyte Count 0.45 X10^3/uL (0.83-4.51); Hematocrit 24.7 % (40-54); Hemoglobin 8.4 g/dL (13.0-16.5); Lymphocyte # 0.45 X10^3/ul (0.83-4.51); Lymphocyte % 86.5 % (19-41); Mean Corpuscular Hgb 35.9 pg (27.0-32.0); Mean Corpuscular Volume 105.6 fL (80-94); Mean Platelet Vol. 10.6 fl (6.2-12.0); Monocyte# 0.02 X10^3/uL; Monocyte% 3.8 % (0-10); NRBC Flagged by Analyzer 0 % (0-5); Neutrophil # 0.03 X10^3/uL (2.7-7.7); Neutrophil % 5.9 % (47-70); POSITIVE COUNT YES; POSITIVE DIFFERENTIAL YES; POSITIVE MORPHOLOGY YES; Platelet Count 44 K/mm3 (150-450); RBC Distribution Width CV 21.3 % (11.6-14.6); RBC Distribution Width SD 79.8 fl (35.1-43.9); Red Blood Count 2.34 M/mm3 (4.6-6.2)
--- NOTE | 2022-05-06 16:30 | RAD_ITS ---
INDICATION: Cough EXAMINATION/TECHNIQUE: X-RAY - XR Chest 1 View COMPARISON: 06/12/2021 FINDINGS: LUNGS: No consolidation, edema or effusion. No pneumothorax. MEDIASTINUM AND CARDIOVASCULAR STRUCTURES: Sternotomy wires and CABG. Enlarged central pulmonary vessels. RAD/Chest 1 View (Portable) IMPRESSION: No radiographic evidence of acute cardiopulmonary disease. Electronically Signed: Víctor Bañuelos MD at 16:52 EST ,
[2022-05-06 16:42] LABS: Differential Indicated SCAN CRITERIA MET; White Blood Count 0.5 K/mm3 (4.4-11.0)
[2022-05-06 17:12] LABS: Bacteria 0 SEEN /hpf (None Seen); Red Blood Cells-Urine 0 SEEN /hpf (0-5); Squamous Epithelial Cells - UA 0 SEEN /hpf (0-5); White Blood Cells 0 SEEN /hpf (0-5)
[2022-05-06 17:19] LABS: Anisocytosis 2+; Differential Comment SCANNED; Hypochromasia 1+; Macrocytosis 2+; Platelet Estimate MKD DEC (ADEQ)
[2022-05-06 17:24] LABS: Color, Urine Yellow (Yellow); Glucose, Dipstick Normal (Normal); Ketone-Dipstick Negative (Negative); Leukocyte Esterase-Dipstick Negative /ul (Negative); Nitrite-Dipstick Negative (Negative); Occult Blood-Urine Negative /ul (Negative); Protein-Dipstick 15 mg/dl (Negative); Urine Bilirubin Dipstick Negative (Negative); Urine Clarity Clear (Clear); Urine Urobilinogen Normal (Normal)
[2022-05-06 17:36] LABS: Mucous, Urine RARE /hpf (<or=2+)
--- NOTE | 2022-05-06 17:53 | NURSING ---
Michael FLOWERS NEUTROPENIC FEVER, SEPSIS
--- NOTE | 2022-05-06 18:20 | ED.RN ---
PCU CHARGE NURSE NOTIFIED PT VQDV=698.6. PT RECEIVED 650MG TYLENOL AT 1430, PT CURRENTLY DRY HEAVING. PCU CHARGE NURSE STATES SHE WILL SEND MESSAGE TO DR FLOWERS SO FEVER CAN BE ADDRESSED UPON ARRIVAL TO PCU.
--- NOTE | 2022-05-06 18:45 | HP.PCM.HOS_ITS ---
HPI - General General Date of Admission: 05/06/22 Date of Service: 05/06/22 Chief Complaint: Neutropenic fever HPI Narrative JOSE MUJICA, is a 66 M who presented to the emergency department [facility] on 05/06/2022 because his wanted him evaluated for generalized weakness that he had in his bilateral upper extremities that started last evening. Today he ended up having a fever of 101. His reports that he was weak in his upper extremities and then started with lower extremity weakness today. She was recently ill with an upper respiratory tract infection and is concerned that he may have this now. He has a cough as well that is currently nonproductive but it is new for him. He does have a history of tobac co abuse. He was at the infusion center giving blood and platelets(he got 1 unit of blood and one 5 pack of platelets) today when he developed fever at the facility. 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 His last chemo was 2 weeks and he typically gets this every 6 weeks. At times his chemotherapy has to be postponed because his numbers hit a very low elieser. He is also complaining of some intermittent urinary frequency but no dysuria. He has chronic shortness of breath and quit smoking 20 years ago. He has had some associated chills and myalgias. He denies any chest pain. He is currently not requiring any oxygen and is not oxygen dependent at baseline. Vital signs at the time of presentation the emergency department demonstrated temperature of 100.7 with a Tmax of 102.6,He denies any fever or chills, heart rate 71, blood pressure is 121/82, respiratory rate 34 and oxygen saturations are 95% on room air. CBC shows neutropenia with a white count of 0.5, hemoglobi n of 8.4 and platelets of 44,000. Absolute neutrophil count is 0. His chemistry panel shows mild hyponatremia with a sodium of 135. Kidney function is normal. Lactic is elevated at 2.6. Total bilirubin is elevated at 1.2 but liver functions are otherwise normal. His urine is unremarkable. Chest x-ray shows no acute process. The emergency department he was treated IV fluids and started on broad-spectrum antibiotics. Cultures were obtained prior to antibiotics being given. 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 Bilateral carotid artery stenosis Candidiasis of skin CVA (cerebral vascular accident) Erythema Essential (primary) hypertension Hyperlipidemia Ischemic cardiomyopathy Myelodysplasia (myelodysplastic syndrome) Old inferior wall myocardial infarction Pancytopenia Rheumatoid arthritis Septic arthritis of knee, left Home Medications levofloxacin 500 mg tablet 500 mg PO DAILY INFECTION 05/04/21 [History Last Taken 05/06/22] metformin 500 mg tablet 500 mg PO BID DIABETES 06/12/21 [History Last Taken 05/06/22] oxycodone 5 mg tablet 5 mg PO Q4H PRN Pain 06/12/21 [History Last Taken 06/11/21 08:00] methadone 5 mg tablet 5 mg PO TID 07/15/21 [History Last Taken 05/06/22] sennosides 8.6 mg-docusate sodium 50 mg capsule (Senna Plus) 1 tab-cap PO DAILY PRN Constipation 08/29/21 [History Last Taken Unknown] ondansetron HCl 4 mg tablet 4 mg PO Q6H PRN Nausea 11/14/21 [History Last Taken 05/06/22] acyclovir 800 mg tablet 800 mg PO BID INFECTION 05/06/22 [History Last Taken 05/06/22] benzocaine 15 mg-menthol 3.6 mg lozenges (Cepacol Sore Throat (benzocaine- menthol)) 1 ceci mucous membrane Q2H PRN SORE THROAT 05/06/22 [History Last Taken Unknown] carvedilol 6.25 mg tablet 6.25 mg PO BID HEART 05/06/22 [History Last Taken 05/06/22] cyanocobalamin (vitamin B-12) 1,000 mcg tablet (Vitamin B-12) 1,000 mcg PO DAILY SUPPLEMENT 05/06/22 [History Last Taken 05/06/22] fluconazole 200 mg tablet 400 mg PO DAILY ANTIFUNGAL 05/06/22 [History Last Taken 05/06/22] fluoxetine 40 mg capsule 40 mg PO DAILY ANXIETY/DEPRESSION 05/06/22 [History Last Taken 05/06/22] gabapentin 100 mg capsule 100 mg PO 4X/DAY NERVE PAIN 05/06/22 [History Last Taken 05/06/22] multivitamin 1 tab PO DAILY HEALTH MAINTENANCE 05/06/22 [History Last Taken 05/06/22] nitroglycerin 0.4 mg sublingual tablet (Nitrostat) 0.4 mg sublingual Q5M PRN CHEST PAIN 05/06/22 [History Last Taken Unknown] ranolazine 500 mg tablet,extended release,12 hr 500 mg PO DAILY ANGINA 05/06/22 [History Last Taken 05/06/22] rosuvastatin 10 mg tablet (Crestor) 10 mg PO DAILY CHOLESTEROL 05/06/22 [History Last Taken 05/06/22] vitamin K2 100 mcg capsule 100 mcg PO DAILY SUPPLEMENT 05/06/22 [History Last Taken 05/06/22] Allergy/AdvReac Type Severity Reaction Status Date / Time guaifenesin AdvReac Other Verified 05/06/22 13:59 Family History Father CAD (coronary artery disease) Diabetes Mother , related to sepsis from diverticulitis Arthritis Surgical History H/O cervical spine surgery (03/2019) H/O coronary artery bypass surgery (05/22/03) History of bone marrow biopsy History of coronary artery stent placement (04/14/16) History of left knee surgery (08/2018) History of shoulder surgery Social History Smoking Status: Former smoker alcohol intake: never substance use type: does not use caffeine: Yes Type: coffee Number of servings: 2 what type of physical activity do you participate in: walking and bicycling frequency: daily duration: 60-90 minutes/day seatbelt use: always do you feel safe at home: Yes ROS Constitutional Constitutional: Reports chills, fatigue, malaise and weakness; Denies anorexia, change in weight, fever(s), night sweats or other Eyes Eyes: Denies blurry vision, change in eye color, change in vision, discharge from eye(s), double vision, erythema, eye pain, loss of vision or other ENT HEENT: Denies abnormal hearing, dysphagia, ear pain, epistaxis, headache(s), hearing loss, nasal congestion, nasal discharge, post nasal drip, sinus pressure, sore throat or other Cardiovascular Cardiovascular: Denies chest pain, claudication, dyspnea on exertion, edema, lightheadedness, orthopnea, palpitations, paroxysmal nocturnal dyspnea, rapid heart rate, syncope or other Respiratory/Chest Respiratory/Chest: Reports cough, dyspnea, productive cough, shortness of breath at rest, shortness of breath with exertion and wheezing; Denies excessive phlegm production, hemoptysis or other Gastrointestinal Gastrointestinal: Denies abdominal pain, coffee ground emesis, constipation, diarrhea, dyspepsia, hematemesis, hematochezia, loose stools, melena, nausea, vomiting or other Genitourinary Genitourinary: Denies burning urination, difficulty urinating, dysuria, hematuria, nocturia, urinary frequency, urinary hesitancy, urinary incontinence, urinary urgency or other Musculoskeletal Musculoskeletal: Reports myalgias; Denies arthralgias, back pain, joint pain, joint stiffness, joint swelling, neck pain or other Neurologic Neurologic: Denies abnormal gait, abnormal speech, confusion, disequilibrium, dizziness, focal weakness, headache(s), numbness, paresthesias, seizure-like activity, seizures, syncope, tingling, tremor(s) or other Psychiatric Psychiatric: Denies anxiety, depression, homicidal ideation, suicidal ideation or other Endocrine Endocrinology: Denies change in body appearance, cold intolerance, excessive sweating, heat intolerance, polydipsia, polyuria or other Hematologic/Lymphatic Hematologic/Lymphatic: Reports anemia, easy bleeding and easy bruising; Denies lymphadenopathy or other Allergic/Immunologic Allergic/Immunologic: Denies rhinitis, hives, eczemia, asthma or other Vital Signs Vital Signs Vital Signs: 05/06/22 13:49 05/06/22 13:56 05/06/22 15:34 Temperature 100.7 F H 100.7 F H Temperature Source Oral Oral Pulse Rate 71 75 Respiratory Rate 34 H 28 H Respiratory Effort Labored Respiratory Pattern Normal Blood Pressure 121/82 H 91/64 Blood Pressure Mean 95 73 Pulse Ox 95 92 Oxygen Delivery Method Room Air Room Air 05/06/22 16:00 05/06/22 16:52 05/06/22 18:04 Temperature 100.4 F H 102.6 F H Temperature Source Oral Oral Pulse Rate 75 73 95 Respiratory Rate 24 H 24 H 28 H Respiratory Effort Respiratory Pattern Blood Pressure 102/58 L 110/60 150/71 H Blood Pressure Mean 72 76 97 Pulse Ox 93 94 94 Oxygen Delivery Method Room Air Room Air Room Air 05/06/22 18:04 Temperature 102.6 F H Temperature Source Oral Pulse Rate 93 Respiratory Rate 22 H Respiratory Effort Respiratory Pattern Blood Pressure 150/71 H Blood Pressure Mean 97 Pulse Ox 94 Oxygen Delivery Method Room Air Weight Weight: 81.788 kg Body Mass Index (BMI) 27.3 Physical Exam Const alert, oriented x3 and no apparent distress Constitutional Narrative: Frail-appearing upper middle-aged, white male, appears much older than stated age, sitting up in bed with multiple blankets, at bedside, appears ill but comfortable at this time General Appearance: cooperative HEENT normocephalic, head/scalp atraumatic and moist oral mucous membranes HEENT Narrative: Mild to moderate hearing loss, dentition is fair, Mallampati is 2, no thrush Eyes PERRL and EOMs intact bilaterally Eyes Narrative: Conjunctiva are pale bilaterally, no scleral icterus Neck no lymphadenopathy and supple Neck Narrative: Trachea midline, no thyroid enlargement Resp normal respiratory effort, no retractions and no use of accessory muscles Resp Narrative: Diffuse scattered end expiratory wheezes Auscultation: wheezes; Negative for rales or rhonchi Cardio regular rate, regular rhythm, S1 normal heart sound, S2 normal heart sound, no murmurs, no rub, no gallops and no clicks GI normal to inspection, nondistended, normoactive bowel sounds, soft to palpation, non-tender and non-distended Extremity no clubbing, cyanosis or edema Extremity Narrative: Pedal pulses are 2+ Skin no wounds, skin turgor normal, no jaundice, no petechiae and no mottling Skin Narrative: Scattered ecchymosis in multiple stages of healing, no specific wounds noted, skin is pale Neuro oriented x3, CN's II-XII intact bilaterally, moves all extremities and no focal motor deficits Neuro Narrative: Significant generalized weakness but no focal deficit Speech: speech normal Psych Psych Narrative: Affect is flat, eye contact is good, does not seem depressed, suspect flat affect related to acute illness Results Lab / Micro Data Attestation: I reviewed the patient's lab results. Result Diagrams: 05/06/22 14:45 05/06/22 14:45 Labs: Laboratory Results - last 24 hr 05/06/22 14:45: WBC 0.5 L*, RBC 2.34 L, Hgb 8.4 L, Hct 24.7 L, MCV 105.6 H D, MCH 35.9 H, MCHC 34.0, RDW Std Deviation 79.8 H, RDW Coeff of Jamie 21.3 H, Plt Count 44 L*, MPV 10.6, Immature Gran % (Auto) 3.800 H, Neut % (Auto) 5.9 L, Lymph % (Auto) 86.5 H, Emanuel % (Auto) 3.8, Eos % (Auto) 0.0, Baso % (Auto) 0.0, Absolute Neuts (auto) 0.0 L, Absolute Lymphs (auto) 0.45 L, Nucleated RBC % 0, Differential Comment SCANNED, Diff Path Review July, Platelet Estimate MKD DEC, Hypochromasia 1+, Anisocytosis 2+, Macrocytosis 2+ 05/06/22 14:45: Sodium 135 L, Potassium 4.4, Chloride 99, Carbon Dioxide 28.0, Anion Gap 8, BUN 13, Creatinine 0.65 L, Estim Creat Clear Calc 111.08, Est GFR (MDRD) Af Amer 160, Est GFR (MDRD) Non-Af 132, BUN/Creatinine Ratio 20.1 H, Glucose 93, Calcium 9.3, Magnesium 1.8, Total Bilirubin 1.20 H, AST 22, ALT 24, Alkaline Phosphatase 103, Total Protein 7.4, Albumin 3.0 L, Globulin 4.4 H, Albumin/Globulin Ratio 0.7 L 05/06/22 14:45: Lactic Acid 2.6 H* 05/06/22 17:05: Urine Color Yellow, Urine Clarity Clear, Urine pH 5.0, Ur Specific [place] 1.020, Urine Protein 15 H, Urine Glucose (UA) Normal, Urine Ketones Negative, Urine Occult Blood Negative, Urine Nitrite Negative, Urine Bilirubin Negative, Urine Urobilinogen Normal, Ur Leukocyte Esterase Negative, Urine RBC 0 SEEN, Urine WBC 0 SEEN, Ur Squamous Epith Cells 0 SEEN, Urine Bacteria 0 SEEN, Urine Mucus RARE Micro: Microbiology 05/06/22 14:32 Nasal Secretion SARS-CoV-2 & FLU Antigen (Rapid) - Final Radiology Impression Chest X-Ray 05/06/22 16:30 IMPRESSION: No radiographic evidence of acute cardiopulmonary disease. Electronically Signed: Víctor Bañuelos MD at 16:52 EST , Assessment & Plan Assessment/Plan (1) Neutropenic fever: (2) Cough: (3) Sepsis: (4) Pancytopenia: (5) Lactic acidosis: (6) Hyperbilirubinemia: PLAN: Plan Sepsis -Suspected respiratory source -See sepsis documentation below -Patient with general Medicare and meet sepsis based on SIRS criteria -No IV fluids needed at this point -Blood and urine cultures obtained -Check sputum culture if able to produce -Check respiratory viral panel -COVID and flu are negative -Start I-S/Pep therapy -No Mucinex as patient has allergy -DuoNebs -Broad-spectrum antibiotics with coverage for neutropenic fever Neutropenic fever -Suspect respiratory as noted above -Cultures in progress -Absolute neutrophil count is 0 at this time -Consult hematology/oncology -May need ID involvement depending on culture results Lactic acidosis -Secondary to the above -Treat sepsis and trend Hyperbilirubinemia -Mild at 1.2 -Suspect related to sepsis -Repeat lab in a.m. Chronic pancytopenia -Consult hematology/oncology -Secondary to chemotherapy -Received 1 unit of blood today and one 5 pack of platelets -Hemoglobin is currently 8.4 and platelets are 44,000 -May need Neupogen--> await oncology recommendations AML -On chemo -Continue acyclovir -Continue fluid all -Hold levofloxacin with broad-spectrum coverage for acute illness -Consult hematology oncology CAD/HPL/HTN -CABGx 5: JOHN-LAD, Sequential SVG-Ramus and D1, SVG-OM2, SVG-RPLB 05/22/2003 AZH-Tktsn-RRR x 2 2003; LZJ-WKR-FXW-Prox-Distal RCA 01/2008; YJQ-Azkz-Ife RCA 06/2009; DYZ-LLT-Pigo RCA w/ 3.0 x 22 mm Resolute Stent and BQDG-NES-Tqf-Disal RCA 04/14/2016 -Continue Coreg -Continue rosuvastatin -Continue Ranexa -No antiplatelet therapy secondary to thrombocytopenia DM-2 -Hold metformin -Sliding scale -Accu-Cheks as ordered Chronic pain -Continue methadone -Continue as needed oxycodone no neck-tinea gabapentin Suspected COPD -Patient very wheezy on exam -Remote history of tobacco abuse but quit 20 years ago Depression -Continue fluoxetine DVT prophylaxis -SCDs -No chemoprophylaxis with platelet count less than 50,000 CODE STATUS -Full code as verified on admission Sepsis Attestation Sepsis Alert: Yes Sepsis Attestation: Agree w/Sepsis Date exam was performed: 05/06/22 Time exam was performed: 18:00 Possible Source of Sepsis: Pulmonary Sepsis Organ Dysfunction Criteria Present: Lactic Acid > 2 mmol/L Supportive Findings: Patient's primary insurance is general Medicare therefore SIRS plus source is enough to diagnose sepsis. He meets SIRS criteria with temperature, leukopenia, respiratory rate with suspected pulmonary source Fluid Resuscitation Fluid Resuscitation ordered: Fluids not indicated Charges/Coding Visit Charges Inpatient E&M: 98747 Init Hosp L3
[2022-05-06 18:51] LABS: Reflex Lactate? Y
--- NOTE | 2022-05-06 19:32 | PCM.RX.CS ---
Consult Pharmacy has been consulted to manage selected antiobiotic: Vancomycin Type of Consult: New start Suspected Infection: Other Labs: Sodium 135 mmol/L (136-145) L 05/06/22 14:45 Potassium 4.4 mmol/L (3.5-5.1) 05/06/22 14:45 Chloride 99 mmol/L (98-107) 05/06/22 14:45 Carbon Dioxide 28.0 mmol/L (21.0-32.0) 05/06/22 14:45 Anion Gap 8 (5-15) 05/06/22 14:45 BUN 13 mg/dL (7-18) 05/06/22 14:45 Creatinine 0.65 mg/dL (0.70-1.30) L 05/06/22 14:45 Est GFR (MDRD) Af Amer 160 mL/min (>60) 05/06/22 14:45 Est GFR (MDRD) Non-Af 132 mL/min (>60) 05/06/22 14:45 BUN/Creatinine Ratio 20.1 RATIO (10-20) H 05/06/22 14:45 Glucose 93 mg/dL (74-106) 05/06/22 14:45 Microbiology: Microbiology 05/06/22 14:32 Nasal Secretion SARS-CoV-2 & FLU Antigen (Rapid) - Final Goal Trough: 15-20 mcg/mL Pharmacy Plan for Drug Dosing: NEW START IV VANCOMYCIN Consulting Physician: Dr. Rober Ardon Indication: Neutropenic Fever Goal Trough: 15-20 SrCr: 0.65 CrCl: > 100mL/min Comments: Loading dose of 2g IV x1 ordered and administered in ED 05/06/22 @1602 Vancomycin Dose: 1000mg IV Q8h to start 05/07/22 @0000 Pending Level: 05/07/22 @1530, prior to 4th total dose of vancomycin per protocol Pharmacy Service will continue to monitor and adjust dosing as required.
[2022-05-06 20:38] LABS: Lactic Acid 2.8 mmol/L (0.4-1.9)
[2022-05-06] MEDS: Acetaminophen 500 MG Tablet 1000 MG PO (21:28)
[2022-05-06] MEDS: Gabapentin 100 MG Capsule PO (21:30)
[2022-05-06] MEDS: Carvedilol 6.25 MG Tablet PO (21:30)
[2022-05-06] MEDS: Atorvastatin Calcium 20 MG Tablet PO (21:30)
[2022-05-06] MEDS: Acyclovir 800 MG Tablet PO (21:37)
[2022-05-06 22:55] LABS: Bedside Glucose 103 mg/dL (74-106)
[2022-05-06] MEDS: Vancomycin IV 1,000 MG/200 ML BAG 200 MG IV (23:51)
[2022-05-07] VITALS (15 sets, daily range): BP systolic 96–123; BP diastolic 51–68; PULSE 64–81; RESP 16–20; TEMP 36.9–39.4; O2SAT 88–98
[2022-05-07] MEDS: Acetaminophen 500 MG Tablet 1000 MG PO ×2 (05:16→16:05)
[2022-05-07 05:43] LABS: Absolute Lymphocyte Count 0.43 X10^3/uL (0.83-4.51); Absolute Neutrophil Count 0.1 X10^3/uL (2.0-7.7); Hematocrit 22.4 % (40-54); Hemoglobin 7.3 g/dL (13.0-16.5); Lymphocyte # 0.43 X10^3/ul (0.83-4.51); Lymphocyte % 78.2 % (19-41); Mean Corp Hgb Conc 32.6 g/dL (32-36); Mean Corpuscular Volume 110.3 fL (80-94); Monocyte# 0.06 X10^3/uL; Monocyte% 10.9 % (0-10); NRBC Flagged by Analyzer 3.6 % (0-5); Neutrophil # 0.05 X10^3/uL (2.7-7.7); Neutrophil % 9.1 % (47-70); POSITIVE COUNT YES; POSITIVE DIFFERENTIAL YES; POSITIVE MORPHOLOGY YES; RBC Distribution Width CV 22.5 % (11.6-14.6); RBC Distribution Width SD 88.1 fl (35.1-43.9); Red Blood Count 2.03 M/mm3 (4.6-6.2)
[2022-05-07 05:48] LABS: Differential Indicated SCAN CRITERIA MET; Platelet Count 38 K/mm3 (150-450); White Blood Count 0.6 K/mm3 (4.4-11.0)
[2022-05-07 06:20] LABS: Differential Comment SCANNED; Ovalocyte RARE; Platelet Estimate MKD DEC (ADEQ)
[2022-05-07 06:45] LABS: Bedside Glucose 96 mg/dL (74-106)
[2022-05-07 06:46] LABS: ALB/GLOB Ratio 0.6 RATIO (0.9-2.4); AST(SGOT) 18 U/L (15-37); Alanine Aminotransfer ALT/SGPT 20 U/L (16-61); Albumin, Serum 2.4 g/dL (3.2-5.0); Alkaline Phosphatase 80 U/L (45-117); Anion Gap 7 (5-15); BUN 9 mg/dL (7-18); BUN/Creat Ratio 19.7 RATIO (10-20); Calcium,Total 8.6 mg/dL (8.5-10.1); Chloride 107 mmol/L (98-107); Creatinine, Serum 0.46 mg/dL (0.70-1.30); EST Glomerular Filtration Rate 197 mL/min (>60); Est Glom Filt Rate - Afr Amer 238 mL/min (>60); Estimated Creatinine Clearance 156.96 ml/min; Globulin 3.7 g/dL (2.2-4.2); Glucose 96 mg/dL (74-106); Magnesium 1.9 mg/dL (1.6-2.6); Phosphorus 3.5 mg/dL (2.5-4.9); Potassium 3.4 mmol/L (3.5-5.1); Protein, Total 6.1 g/dL (6.4-8.2); Sodium Level 139 mmol/L (136-145)
[2022-05-07] MEDS: Ipratropium/Albuterol Sulfate 3 ML AMPUL.NEB INHALATION ×2 (07:18→14:06)
[2022-05-07] MEDS: Acyclovir 800 MG Tablet PO (08:06)
[2022-05-07] MEDS: Fluoxetine HCl 40 MG CAPSULE PO (08:06)
[2022-05-07] MEDS: Cyanocobalamin 500 MCG Tablet 1000 MCG PO (08:06)
[2022-05-07] MEDS: Fluconazole 100 MG Tablet 400 MG PO (08:06)
[2022-05-07] MEDS: Vancomycin IV 1,000 MG/200 ML BAG 200 MG IV ×2 (08:06→16:05)
[2022-05-07] MEDS: Ranolazine 500 MG Tablet PO (08:06)
[2022-05-07] MEDS: Gabapentin 100 MG Capsule PO ×2 (08:06→18:30)
--- NOTE | 2022-05-07 10:50 | CASEMGMT ---
MARIELA MITTAL Face to Face with patient for initial transition planning/care coordination assessment. RN CM introduced self and role at [facility]. Patient lying in bed, alert and oriented, at bedside. Patient willing to participate in assessment and is able to answer all questions appropriately. Care providers, pharmacy, and demographics verified. Patient wishes to discharge home, denies need for home health at this time. Patient states he has no further needs or concerns at this time. CM to follow for discharge planning needs that may arise. PCP: [facility] Specialists: gisela Casper [facility]; RA Yaron Hendrix Pharmacy: [facility] Insurance: [facility] Prescription Benefit: none Living Will/HPOA: yes, Cristina Daley LNOK: Living Arrangements: Patient lives with in bilevel home with 3 steps and railing. assists patient with ADL Transportation: DME/HHC: Patient has shower chair, raised toilet, cane, walker, rollator, wheelchair, and grab bars at home. Patient has had [facility] HHC in the past. Disposition Plan: Patient to discharge home with family support and follow-up plans in place. Krista HERRERA, RN, CM
[2022-05-07 12:15] LABS: Bedside Glucose 102 mg/dL (74-106)
[2022-05-07 12:42] LABS: Pathologist Review Reviewed
[2022-05-07 12:42] LABS: Pathologist Review Reviewed
[2022-05-07] MEDS: 0.9% Saline Lock 10 ML Syringe IV (13:38)
[2022-05-07] MEDS: Ondansetron 4 MG/2 ML Vial IV (13:38)
--- NOTE | 2022-05-07 14:18 | CHAPLAIN ---
Type of Pastoral Visit _x__ Initial Visit ___ Follow-up Visit ___ On-call Visit ___ General Patient Visit ___ Spiritual Assessment ___ Family Conference ___ Bereavement ___ Rapid Response ___ Code Blue ___ Other (describe below) Pastoral Care Referral From ___ Patient _x__ Family ___ Nurse ___ Physician ___ Lining Marker ___ Corporate Manager ___ Other (describe below) Sacrament/Intervention _x__ Active listening ___ Anointing ___ Scientologist ___ Bereavement ___ Communion ___ Candi exploration ___ _x__ Life review _x_ Prayer ___ Reconciliation ___ Sacrament of Sick _x__ Supportive presence ___ Wedding ___ Other (describe below) Pastoral Comments patient is nauseous but just received medication; spouse is with him and is an acquaintance of this wagon person; pt is weakened but still making plans for life; pt allows conversation about God and eternal life but resists it as well; pt talks about his plans for a vacation/retreat; pt welcomes a prayer
--- NOTE | 2022-05-07 15:09 | CASEMGMT ---
Patient has a Healthcare Power of Regional Cra and a Healthcare Living Will on file at [facility]. Patient's Cristina is his Healthcare Power of Regional Cra. Fabiana Shepard BUSINESS ASSISTANT CAITY
[2022-05-07] MEDS: DiphenhydrAMINE 25 MG Capsule 50 MG PO (16:05)
[2022-05-07 16:30] LABS: Bedside Glucose 85 mg/dL (74-106)
--- NOTE | 2022-05-07 16:36 | PCM.RX.CS ---
Consult Pharmacy has been consulted to manage selected antiobiotic: Vancomycin Type of Consult: Follow-up Labs: Sodium 139 mmol/L (136-145) 05/07/22 04:41 Potassium 3.4 mmol/L (3.5-5.1) L 05/07/22 04:41 Chloride 107 mmol/L (98-107) 05/07/22 04:41 Carbon Dioxide 25.0 mmol/L (21.0-32.0) 05/07/22 04:41 Anion Gap 7 (5-15) 05/07/22 04:41 BUN 9 mg/dL (7-18) 05/07/22 04:41 Creatinine 0.46 mg/dL (0.70-1.30) L 05/07/22 04:41 Est GFR (MDRD) Af Amer 238 mL/min (>60) 05/07/22 04:41 Est GFR (MDRD) Non-Af 197 mL/min (>60) 05/07/22 04:41 BUN/Creatinine Ratio 19.7 RATIO (10-20) 05/07/22 04:41 Glucose 96 mg/dL (74-106) 05/07/22 04:41 Vancomycin Trough 14.0 ug/mL (5.0-15.0) 05/07/22 15:10 Microbiology: Microbiology 05/06/22 17:05 Urine, Clean Catch Urine Culture - Preliminary Gram positive organism 05/06/22 23:05 Mucosa - Nasopharyngeal Respiratory Panel (PCR) - Final Human [place] 05/06/22 19:23 Urine, Clean Catch Legionella Antigen - Final 05/06/22 19:23 Urine, Clean Catch Streptococcus pneumoniae Antigen (M - Final 05/06/22 14:32 Nasal Secretion SARS-CoV-2 & FLU Antigen (Rapid) - Final Goal Trough: 15-20 mcg/mL Pharmacy Plan for Drug Dosing: VANCOMYCIN LEVEL RECEIVED Current Vancomycin Dose: 1000mg IV Q8h Number of Doses Received: 4 Vancomycin Level: 14 Hours Since Last Dose: 7hr Renal Function: 0.46 Renal Function Trend: stable Vancomycin Plan/Comments: Patient had a trough drawn which resulted in a value of 14 (Goal 15-20). Patient appears to be stable, will continue patient on current dose. Hesitant to increase dose further as pt already on q8h dosing. Will continue current dose of 1000mg IV Q8h and recheck a trough in 24hrs. If trough still below 15 at that time, can consider increasing dose then. Pending Level: 05/08/22 @2251 Pharmacy Service will continue to monitor and adjust dosing as required.
--- NOTE | 2022-05-07 17:17 | PCM.DC ---
Discharge Instructions Diet Discharge Diet: No restrictions Activity Discharge Activity: Return to Normal Activity Weight Bearing Status: Full weight bearing Follow Up Care Test Results: Test results from this visit will be discussed in further detail at your follow-up appointment, if applicable. Discharge Plan Admission Admit Date/Time: 05/06/22 18:37 Primary Reason for Your Visit: [place] pneumo viral infection, anemia Attending Provider: Jose Luis Hoang Primary Care Provider: Jose Luis Leija Consulting Providers: Garima Ardon Discharge Orders/Prescriptions Prescriptions: New levofloxacin 500 mg tablet 500 mg PO DAILY Qty: 5 0RF Rx Instructions: start on 05/08/22 Continued ondansetron HCl 4 mg tablet 4 mg PO Q6H PRN (Reason: Nausea) levofloxacin 500 mg tablet 500 mg PO DAILY Hold Instructions: Resume on 06/28/21. metformin 500 mg tablet 500 mg PO BID oxycodone 5 mg tablet 5 mg PO Q4H PRN (Reason: Pain) methadone 5 mg Tablet 5 mg PO TID Senna Plus 8.6-50 mg Capsule 1 tab-cap PO DAILY PRN (Reason: Constipation) multivitamin Tablet 1 tab PO DAILY fluoxetine 40 mg Capsule 40 mg PO DAILY fluconazole 200 mg Tablet 400 mg PO DAILY cyanocobalamin (vitamin B-12) [Vitamin B-12] 1,000 mcg Tablet 1,000 mcg PO DAILY gabapentin 100 mg capsule 100 mg PO 4X/DAY vitamin K2 100 mcg Capsule 100 mcg PO DAILY carvedilol 6.25 mg tablet 6.25 mg PO BID acyclovir 800 mg tablet 800 mg PO BID nitroglycerin [Nitrostat] 0.4 mg tablet, sublingual 0.4 mg SUBLINGUAL Q5M PRN (Reason: CHEST PAIN ) rosuvastatin [Crestor] 10 mg tablet 10 mg PO DAILY ranolazine 500 mg tablet extended release 12 hr 500 mg PO DAILY Cepacol Sore Throat (ebony-men) 15-3.6 mg lozenge 1 ceci mucous membrane Q2H PRN (Reason: SORE THROAT) Referrals / Follow Up: Jose Luis Leija MD [Primary Care Provider] - See Referral Note (At scheduled visit time) Disposition Disposition (needs filled in before D/C Order can be placed): Home, Self Care
--- NOTE | 2022-05-07 19:28 | DS.PCM_ITS ---
Providers Date of Admission: 05/06/22 Date of Discharge: 05/07/22 Primary Care Physician: Dr. Jose Luis Leija MD Reason For Visit: NEUTROPENIC FEVER Diagnosis Discharge Diagnosis (1) Neutropenic fever: Status: Acute Code(s): D70.9 - Neutropenia, unspecified; R50.81 - Fever presenting with conditions classified elsewhere (2) Cough: Status: Acute Code(s): R05.9 - Cough, unspecified (3) Sepsis: Status: Acute Code(s): A41.9 - Sepsis, unspecified organism (4) Pancytopenia: Status: Chronic Code(s): D61.818 - Other pancytopenia (5) Lactic acidosis: Status: Acute Code(s): E87.20 - Acidosis, unspecified (6) Hyperbilirubinemia: Status: Acute Code(s): E80.6 - Other disorders of bilirubin metabolism Plan 1. Human [place] pneumo virus tracheobronchitis #2 myelodysplastic syndrome #3 chronic anemia secondary to #2 requiring blood transfusion #4 essential hypertension #5 coronary artery disease Medications at Discharge Home Medications levofloxacin 500 mg tablet 500 mg PO DAILY INFECTION 05/04/21 metformin 500 mg tablet 500 mg PO BID DIABETES 06/12/21 oxycodone 5 mg tablet 5 mg PO Q4H PRN Pain 06/12/21 methadone 5 mg tablet 5 mg PO TID pain 07/15/21 sennosides 8.6 mg-docusate sodium 50 mg capsule (Senna Plus) 1 tab-cap PO DAILY PRN Constipation 08/29/21 ondansetron HCl 4 mg tablet 4 mg PO Q6H PRN Nausea 11/14/21 acyclovir 800 mg tablet 800 mg PO BID INFECTION 05/06/22 benzocaine 15 mg-menthol 3.6 mg lozenges (Cepacol Sore Throat (benzocaine- menthol)) 1 ceci mucous membrane Q2H PRN SORE THROAT 05/06/22 carvedilol 6.25 mg tablet 6.25 mg PO BID HEART 05/06/22 cyanocobalamin (vitamin B-12) 1,000 mcg tablet (Vitamin B-12) 1,000 mcg PO DAILY SUPPLEMENT 05/06/22 fluconazole 200 mg tablet 400 mg PO DAILY ANTIFUNGAL 05/06/22 fluoxetine 40 mg capsule 40 mg PO DAILY ANXIETY/DEPRESSION 05/06/22 gabapentin 100 mg capsule 100 mg PO 4X/DAY NERVE PAIN 05/06/22 multivitamin 1 tab PO DAILY HEALTH MAINTENANCE 05/06/22 nitroglycerin 0.4 mg sublingual tablet (Nitrostat) 0.4 mg sublingual Q5M PRN LOS ST PAIN 05/06/22 ranolazine 500 mg tablet,extended release,12 hr 500 mg PO DAILY ANGINA 05/06/22 rosuvastatin 10 mg tablet (Crestor) 10 mg PO DAILY CHOLESTEROL 05/06/22 vitamin K2 100 mcg capsule 100 mcg PO DAILY SUPPLEMENT 05/06/22 levofloxacin 500 mg tablet 500 mg PO DAILY #5 tabs 05/07/22 Hospital Course Operations None Procedures Blood transfusion Summary of Care Provided Minutes Spent on Discharge: 31 Hospital Course: This 66-year-old white male was seen in the emergency room with weakness and fever, he has a history of myelodysplastic syndrome. Patient states he had chemotherapy 2 weeks ago. Work-up in the emergency room showed the patient's white blood cell count to be low, his platelet count was also low as was his hemoglobin. Patient's chest x-ray showed no active infiltrate, urinalysis was unremarkable. Patient was admitted to PCU for neutropenic fever, and originally he was on IV antibiotics but his respiratory panel resulted positive for human metapneumovirus. Patient defervesced, his hemoglobin was low and so he was given 1 unit of packed red blood cells. On 05/07/2022, patient was seen and examined: On examination he appeared in good health and spirits. Vital signs as documented. Skin warm and dry and without overt rashes. Neck without JVD, neck was supple, trachea midline, thyroid was normal. Lungs clear bilaterally, normal air movement was noted. Heart exam notable for regular rhythm, normal sounds and absence of murmurs, rubs or gallops. Abdomen unremarkable and without evidence of organomegaly, masses, or abdominal aortic enlargement. Bowel sounds are present, abdomen is not disten ded. Extremities nonedematous, no cyanosis was noted, no clubbing was noted. Neuro: Cranial nerves II through XII are grossly intact, no focal motor deficits were noted, sensation to light touch and pinprick intact, motor exam 5/5 throughout. Psych: Patient is alert and oriented x3, he does not appear anxious or depressed, he does not appear agitated. Patient appears stable for discharge home on 05/07/2022, he was given a few days of oral levofloxacin. Weight / BMI Weight Weight: 82.8 kg Body Mass Index (BMI) 27.7 ABG / Lab / Microbiology Data Result Diagrams: 05/07/22 04:41 05/07/22 04:41 Laboratory: Laboratory Results - last 24 hr 05/05/22 09:30: Blood Type Cancelled, A1 Antigen Typing Cancelled, Rho(D) Type Cancelled, Antibody Screen Cancelled, Crossmatch See Detail 05/06/22 14:45: Diff Path Review Reviewed 05/06/22 19:58: Lactic Acid 2.8 H* 05/06/22 22:34: POC Glucose 103 05/07/22 04:41: WBC 0.6 L*, RBC 2.03 L, Hgb 7.3 L, Hct 22.4 L, MCV 110.3 H, MCH 36.0 H, MCHC 32.6, RDW Std Deviation 88.1 H, RDW Coeff of Jamie 22.5 H, Plt Count 38 L*, MPV 13.0 H, Immature Gran % (Auto) 1.800 H, Neut % (Auto) 9.1 L, Lymph % (Auto) 78.2 H, [place] % (Auto) 10.9 H, Eos % (Auto) 0.0, Baso % (Auto) 0.0, Absolute Neuts (auto) 0.1 L, Absolute Lymphs (auto) 0.43 L, Nucleated RBC % 3.6, Differential Comment SCANNED, Diff Path Review Reviewed, Platelet Estimate MKD DEC, Ovalocytes RARE 05/07/22 04:41: Sodium 139, Potassium 3.4 L, Chloride 107, Carbon Dioxide 25.0, Anion Gap 7, BUN 9, Creatinine 0.46 L, Estim Creat Clear Calc 156.96, Est GFR (MDRD) Af Amer 238, Est GFR (MDRD) Non-Af 197, BUN/Creatinine Ratio 19.7, Glucose 96, Calcium 8.6, Phosphorus 3.5, Magnesium 1.9, Total Bilirubin 0.60, AST 18, ALT 20, Alkaline Phosphatase 80, Total Protein 6.1 L, Albumin 2.4 L, Globulin 3.7, Albumin/Globulin Ratio 0.6 L 05/07/22 06:16: POC Glucose 96 03/02/23 11:48: POC Glucose 102 05/07/22 15:10: Vancomycin Trough 14.0 05/07/22 16:10: POC Glucose 85 Microbiology: Microbiology 05/06/22 17:05 Urine, Clean Catch Urine Culture - Preliminary Gram positive organism 05/06/22 23:05 Mucosa - Nasopharyngeal Respiratory Panel (PCR) - Final Human [place] 05/06/22 19:23 Urine, Clean Catch Legionella Antigen - Final 05/06/22 19:23 Urine, Clean Catch Streptococcus pneumoniae Antigen (M - Final 05/06/22 14:32 Nasal Secretion SARS-CoV-2 & FLU Antigen (Rapid) - Final D/C Instructions Discharge Diet: No restrictions Weight Bearing Status: Full weight bearing Meaningful Use Info Meaningful Use Diagnoses (Choose all that apply): None applicable Discharge Plan Admission Admit Date/Time: 05/06/22 18:37 Primary Reason for Your Visit: [place] pneumo viral infection, anemia Attending Provider: Jose Luis Hoang Primary Care Provider: Jose Luis Leija Consulting Providers: Garima Ardon Discharge Orders/Prescriptions Prescriptions: New levofloxacin 500 mg tablet 500 mg PO DAILY Qty: 5 0RF Rx Instructions: start on 05/08/22 Continued ondansetron HCl 4 mg tablet 4 mg PO Q6H PRN (Reason: Nausea) levofloxacin 500 mg tablet 500 mg PO DAILY Hold Instructions: Resume on 06/28/21. metformin 500 mg tablet 500 mg PO BID oxycodone 5 mg tablet 5 mg PO Q4H PRN (Reason: Pain) methadone 5 mg Tablet 5 mg PO TID Senna Plus 8.6-50 mg Capsule 1 tab-cap PO DAILY PRN (Reason: Constipation) multivitamin Tablet 1 tab PO DAILY fluoxetine 40 mg Capsule 40 mg PO DAILY fluconazole 200 mg Tablet 400 mg PO DAILY cyanocobalamin (vitamin B-12) [Vitamin B-12] 1,000 mcg Tablet 1,000 mcg PO DAILY gabapentin 100 mg capsule 100 mg PO 4X/DAY vitamin K2 100 mcg Capsule 100 mcg PO DAILY carvedilol 6.25 mg tablet 6.25 mg PO BID acyclovir 800 mg tablet 800 mg PO BID nitroglycerin [Nitrostat] 0.4 mg tablet, sublingual 0.4 mg SUBLINGUAL Q5M PRN (Reason: CHEST PAIN ) rosuvastatin [Crestor] 10 mg tablet 10 mg PO DAILY ranolazine 500 mg tablet extended release 12 hr 500 mg PO DAILY Cepacol Sore Throat (ebony-men) 15-3.6 mg lozenge 1 ceci mucous membrane Q2H PRN (Reason: SORE THROAT) Referrals / Follow Up: Jose Luis Leija MD [Primary Care Provider] - See Referral Note (At scheduled visit time) Disposition Disposition (needs filled in before D/C Order can be placed): Home, Self Care Charges/Coding Visit Charges Inpatient E&M: 93013 Disch Hosp >30min
== END 2022-05-07 20:10 | disposition home or self-care (01) | DRG 871 ==
LOC: ED 17:48 → PCU 18:51
PROVIDERS: Admitting Provider Internal Medicine; Emergency Provider Emergency Medicine; PCP Family Medicine; Visit Provider Internal Medicine
DX: A41.9 Sepsis, unspecified organism (principal); D61.810 Antineoplastic chemotherapy induced pancytopenia; C92.00 Acute myeloblastic leukemia, not having achieved remission; J44.9 Chronic obstructive pulmonary disease, unspecified; E11.9 Type 2 diabetes mellitus without complications; D46.9 Myelodysplastic syndrome, unspecified; D70.9 Neutropenia, unspecified; I25.10 Atherosclerotic heart disease of native coronary artery without angina pectoris; E78.5 Hyperlipidemia, unspecified; I10 Essential (primary) hypertension; E80.6 Other disorders of bilirubin metabolism; I25.5 Ischemic cardiomyopathy; J20.8 Acute bronchitis due to other specified organisms; B97.81 Human metapneumovirus as the cause of diseases classified elsewhere; G89.29 Other chronic pain; F32.A Depression, unspecified; R50.81 Fever presenting with conditions classified elsewhere; T45.1X5A Adverse effect of antineoplastic and immunosuppressive drugs, initial encounter; Z95.5 Presence of coronary angioplasty implant and graft; Z20.822 Contact with and (suspected) exposure to COVID-19; Z79.84 Long term (current) use of oral hypoglycemic drugs; Z79.891 Long term (current) use of opiate analgesic; Z87.891 Personal history of nicotine dependence
CPT/HCPCS: 36415; 36430; 71045; 80053; 80202; 81001; 82962; 83605; 83735; 84100; 85025; 86644; 86850; 86900; 86901; 86920; 86922; 86965; 87040; 87077; 87086; 87088; 87186; 87428; 87449; 87633; 93005; 94640; 94668; 97802; 99252; 99284; J7030; J7040; J7050; P9035; P9040; A4216; G0463; J2405

== ENCOUNTER → 2022-05-06 | Outpatient (CLI) | payer MEDICARE, SELFPAY ==
[2022-05-06] MEDS: DiphenhydrAMINE 25 MG Capsule PO (08:46)
[2022-05-06] MEDS: Acetaminophen 325 MG Tablet 650 MG PO (08:46)
[2022-05-06 08:47] VITALS: BP 109/69; PULSE 76; RESP 18; TEMP 36.4; O2SAT 92; BMI 26.6
[2022-05-06 09:57] VITALS: BP 101/63; PULSE 67; RESP 16; TEMP 36; O2SAT 95
[2022-05-06 10:44] VITALS: BP 93/62; PULSE 62; RESP 18; TEMP 36.1; O2SAT 93
[2022-05-06 11:48] VITALS: BP 125/84; PULSE 67; RESP 16; TEMP 35.9; O2SAT 98
== END | disposition home or self-care (01) ==
LOC: MEDOUTP 08:27
PROVIDERS: PCP Family Medicine; Referring Provider Internal Medicine Hematology; Visit Provider Internal Medicine Hematology
DX: Z00.00 Encounter for general adult medical examination without abnormal findings (principal)
CPT/HCPCS: 86644; 86850; 86900; 86901; 86920; 86922; 86965; J7040; P9035; P9040

== ENCOUNTER → 2022-05-13 | Outpatient (CLI) | payer MEDICARE, SELFPAY ==
[2022-05-13 11:31] LABS: Absolute Neutrophil Count 0.1 X10^3/uL (2.0-7.7); Basophil# 0.01 X10^3/uL; Basophil% 1.1 % (0-1); Hematocrit 25.9 % (40-54); Hemoglobin 8.1 g/dL (13.0-16.5); Lymphocyte % 77.8 % (19-41); Mean Corp Hgb Conc 31.3 g/dL (32-36); Mean Corpuscular Hgb 33.9 pg (27.0-32.0); Mean Corpuscular Volume 108.4 fL (80-94); Monocyte# 0.06 X10^3/uL; Monocyte% 6.7 % (0-10); NRBC Flagged by Analyzer 0 % (0-5); Neutrophil # 0.12 X10^3/uL (2.7-7.7); Neutrophil % 13.3 % (47-70); POSITIVE COUNT YES; POSITIVE DIFFERENTIAL YES; POSITIVE MORPHOLOGY YES; Platelet Count 104 K/mm3 (150-450); RBC Distribution Width CV 20.3 % (11.6-14.6); RBC Distribution Width SD 81.4 fl (35.1-43.9); Red Blood Count 2.39 M/mm3 (4.6-6.2); White Blood Count 0.9 K/mm3 (4.4-11.0)
[2022-05-13 11:43] LABS: ALB/GLOB Ratio 0.5 RATIO (0.9-2.4); AST(SGOT) 50 U/L (15-37); Alanine Aminotransfer ALT/SGPT 86 U/L (16-61); Albumin, Serum 2.2 g/dL (3.2-5.0); Alkaline Phosphatase 87 U/L (45-117); Anion Gap 7 (5-15); BUN 9 mg/dL (7-18); Calcium,Total 9.2 mg/dL (8.5-10.1); Chloride 102 mmol/L (98-107); Creatinine, Serum 0.56 mg/dL (0.70-1.30); EST Glomerular Filtration Rate 155 mL/min (>60); Est Glom Filt Rate - Afr Amer 187 mL/min (>60); Globulin 4.8 g/dL (2.2-4.2); Glucose 122 mg/dL (74-106); Potassium 3.5 mmol/L (3.5-5.1); Sodium Level 139 mmol/L (136-145)
[2022-05-13 11:53] LABS: Differential Indicated SCAN CRITERIA MET
[2022-05-13 12:10] LABS: Differential Comment SCANNED
[2022-05-14 13:26] LABS: Pathologist Review Reviewed
== END | disposition home or self-care (01) ==
LOC: LAB 08:29
PROVIDERS: PCP Family Medicine; Referring Provider Internal Medicine Hematology; Visit Provider Internal Medicine Hematology
DX: D46.9 Myelodysplastic syndrome, unspecified (principal); Z71.89 Other specified counseling
CPT/HCPCS: 36415; 80053; 85025

== ENCOUNTER → 2022-05-18 | Outpatient (CLI) | payer MEDICARE, SELFPAY ==
[2022-05-18 10:54] LABS: Absolute Lymphocyte Count 0.89 X10^3/uL (0.83-4.51); Absolute Neutrophil Count 0.4 X10^3/uL (2.0-7.7); Basophil# 0.02 X10^3/uL; Basophil% 1.4 % (0-1); Hematocrit 29.9 % (40-54); Hemoglobin 9.5 g/dL (13.0-16.5); Lymphocyte # 0.89 X10^3/ul (0.83-4.51); Lymphocyte % 64.5 % (19-41); Mean Corp Hgb Conc 31.8 g/dL (32-36); Mean Corpuscular Hgb 35.4 pg (27.0-32.0); Mean Corpuscular Volume 111.6 fL (80-94); Mean Platelet Vol. 11.1 fl (6.2-12.0); Monocyte# 0.08 X10^3/uL; Monocyte% 5.8 % (0-10); NRBC Flagged by Analyzer 0 % (0-5); Neutrophil # 0.39 X10^3/uL (2.7-7.7); Neutrophil % 28.3 % (47-70); POSITIVE COUNT YES; POSITIVE DIFFERENTIAL YES; POSITIVE MORPHOLOGY YES; Platelet Count 155 K/mm3 (150-450); RBC Distribution Width CV 20.5 % (11.6-14.6); RBC Distribution Width SD 82.8 fl (35.1-43.9); Red Blood Count 2.68 M/mm3 (4.6-6.2); White Blood Count 1.4 K/mm3 (4.4-11.0)
[2022-05-18 11:02] LABS: Differential Indicated SCAN CRITERIA MET
[2022-05-18 11:18] LABS: Anisocytosis 1+
[2022-05-18 11:27] LABS: ALB/GLOB Ratio 0.5 RATIO (0.9-2.4); AST(SGOT) 23 U/L (15-37); Alanine Aminotransfer ALT/SGPT 43 U/L (16-61); Albumin, Serum 2.7 g/dL (3.2-5.0); Alkaline Phosphatase 109 U/L (45-117); Anion Gap 7 (5-15); BUN 9 mg/dL (7-18); BUN/Creat Ratio 12.4 RATIO (10-20); Calcium,Total 9.6 mg/dL (8.5-10.1); Chloride 102 mmol/L (98-107); Creatinine, Serum 0.72 mg/dL (0.70-1.30); EST Glomerular Filtration Rate 116 mL/min (>60); Est Glom Filt Rate - Afr Amer 140 mL/min (>60); Globulin 5.6 g/dL (2.2-4.2); Glucose 180 mg/dL (74-106); Protein, Total 8.3 g/dL (6.4-8.2); Sodium Level 137 mmol/L (136-145)
[2022-05-18 14:10] LABS: Pathologist Review Reviewed
== END | disposition home or self-care (01) ==
LOC: LAB 09:35
PROVIDERS: PCP Family Medicine; Referring Provider Internal Medicine Hematology; Visit Provider Internal Medicine Hematology
DX: D46.9 Myelodysplastic syndrome, unspecified (principal); Z71.89 Other specified counseling
CPT/HCPCS: 36415; 80053; 85025

== ENCOUNTER → 2022-05-21 | Outpatient (CLI) | payer MEDICARE, SELFPAY ==
[2022-05-21 09:35] LABS: Absolute Lymphocyte Count 1.22 X10^3/uL (0.83-4.51); Absolute Neutrophil Count 0.6 X10^3/uL (2.0-7.7); Basophil# 0.01 X10^3/uL; Basophil% 0.5 % (0-1); Hematocrit 28.6 % (40-54); Hemoglobin 9.1 g/dL (13.0-16.5); Lymphocyte # 1.22 X10^3/ul (0.83-4.51); Lymphocyte % 61.9 % (19-41); Mean Corp Hgb Conc 31.8 g/dL (32-36); Mean Platelet Vol. 9.9 fl (6.2-12.0); Monocyte# 0.11 X10^3/uL; Monocyte% 5.6 % (0-10); NRBC Flagged by Analyzer 0 % (0-5); Neutrophil # 0.63 X10^3/uL (2.7-7.7); POSITIVE DIFFERENTIAL YES; POSITIVE MORPHOLOGY YES; Platelet Count 161 K/mm3 (150-450); RBC Distribution Width CV 19.9 % (11.6-14.6); RBC Distribution Width SD 79.6 fl (35.1-43.9)
[2022-05-21 09:39] LABS: Differential Indicated SCAN CRITERIA MET
[2022-05-21 09:51] LABS: ALB/GLOB Ratio 0.6 RATIO (0.9-2.4); AST(SGOT) 17 U/L (15-37); Alanine Aminotransfer ALT/SGPT 29 U/L (16-61); Albumin, Serum 2.9 g/dL (3.2-5.0); Alkaline Phosphatase 108 U/L (45-117); Anion Gap 7 (5-15); BUN 14 mg/dL (7-18); BUN/Creat Ratio 26.5 RATIO (10-20); Calcium,Total 9.3 mg/dL (8.5-10.1); Chloride 105 mmol/L (98-107); Creatinine, Serum 0.53 mg/dL (0.70-1.30); EST Glomerular Filtration Rate 166 mL/min (>60); Est Glom Filt Rate - Afr Amer 201 mL/min (>60); Globulin 5.2 g/dL (2.2-4.2); Glucose 164 mg/dL (74-106); Protein, Total 8.1 g/dL (6.4-8.2); Sodium Level 138 mmol/L (136-145)
[2022-05-21 09:58] LABS: Anisocytosis 1+; Reactive Lymphocyte 1+
== END | disposition home or self-care (01) ==
PROVIDERS: PCP Family Medicine; Visit Provider Internal Medicine Hematology
DX: D46.9 Myelodysplastic syndrome, unspecified (principal); Z71.89 Other specified counseling
CPT/HCPCS: 36415; 80053; 85025

== ENCOUNTER → 2022-05-25 | Outpatient (CLI) | payer MEDICARE, SELFPAY ==
[2022-05-25 10:45] LABS: Absolute Lymphocyte Count 1.13 X10^3/uL (0.83-4.51); Basophil# 0.02 X10^3/uL; Basophil% 0.8 % (0-1); Hematocrit 27.7 % (40-54); Hemoglobin 8.8 g/dL (13.0-16.5); Lymphocyte # 1.13 X10^3/ul (0.83-4.51); Lymphocyte % 47.3 % (19-41); Mean Corp Hgb Conc 31.8 g/dL (32-36); Mean Corpuscular Hgb 35.2 pg (27.0-32.0); Mean Corpuscular Volume 110.8 fL (80-94); Mean Platelet Vol. 10.1 fl (6.2-12.0); Monocyte# 0.19 X10^3/uL; Monocyte% 7.9 % (0-10); NRBC Flagged by Analyzer 0 % (0-5); Neutrophil # 1.04 X10^3/uL (2.7-7.7); Neutrophil % 43.6 % (47-70); POSITIVE MORPHOLOGY YES; Platelet Count 146 K/mm3 (150-450); RBC Distribution Width CV 20.5 % (11.6-14.6); RBC Distribution Width SD 82.3 fl (35.1-43.9); White Blood Count 2.4 K/mm3 (4.4-11.0)
[2022-05-25 10:58] LABS: ALB/GLOB Ratio 0.6 RATIO (0.9-2.4); AST(SGOT) 15 U/L (15-37); Alanine Aminotransfer ALT/SGPT 26 U/L (16-61); Albumin, Serum 2.9 g/dL (3.2-5.0); Alkaline Phosphatase 121 U/L (45-117); Anion Gap 5 (5-15); BUN 14 mg/dL (7-18); BUN/Creat Ratio 25.5 RATIO (10-20); Calcium,Total 9.2 mg/dL (8.5-10.1); Chloride 104 mmol/L (98-107); Creatinine, Serum 0.55 mg/dL (0.70-1.30); EST Glomerular Filtration Rate 159 mL/min (>60); Est Glom Filt Rate - Afr Amer 192 mL/min (>60); Globulin 4.5 g/dL (2.2-4.2); Glucose 181 mg/dL (74-106); Potassium 4.1 mmol/L (3.5-5.1); Protein, Total 7.4 g/dL (6.4-8.2); Sodium Level 137 mmol/L (136-145)
[2022-05-25 11:10] LABS: Differential Indicated SCAN CRITERIA MET
[2022-05-25 11:16] LABS: Atypical Lymphocyte 1+ %; Differential Comment SCANNED
[2022-05-25 11:17] LABS: Anisocytosis 1+
== END | disposition home or self-care (01) ==
PROVIDERS: PCP Family Medicine; Referring Provider Internal Medicine Hematology
DX: D46.9 Myelodysplastic syndrome, unspecified (principal); Z71.89 Other specified counseling
CPT/HCPCS: 36415; 80053; 85025

== ENCOUNTER → 2022-06-01 | Outpatient (CLI) | payer MEDICARE, SELFPAY ==
[2022-06-01 10:47] LABS: Absolute Lymphocyte Count 1.12 X10^3/uL (0.83-4.51); Absolute Neutrophil Count 0.8 X10^3/uL (2.0-7.7); Basophil# 0.01 X10^3/uL; Basophil% 0.5 % (0-1); Eosinophil# 0.03 X10^3/uL; Eosinophils% 1.5 % (0-5); Hematocrit 25.2 % (40-54); Hemoglobin 8.2 g/dL (13.0-16.5); Lymphocyte # 1.12 X10^3/ul (0.83-4.51); Lymphocyte % 54.4 % (19-41); Mean Corp Hgb Conc 32.5 g/dL (32-36); Mean Corpuscular Hgb 36.1 pg (27.0-32.0); Mean Platelet Vol. 10.3 fl (6.2-12.0); Monocyte% 4.9 % (0-10); Neutrophil # 0.79 X10^3/uL (2.7-7.7); Neutrophil % 38.2 % (47-70); POSITIVE DIFFERENTIAL YES; POSITIVE MORPHOLOGY YES; Platelet Count 111 K/mm3 (150-450); RBC Distribution Width CV 21.1 % (11.6-14.6); Red Blood Count 2.27 M/mm3 (4.6-6.2); White Blood Count 2.1 K/mm3 (4.4-11.0)
[2022-06-01 10:53] LABS: Differential Indicated SCAN CRITERIA MET
[2022-06-01 11:21] LABS: Anisocytosis 2+; Differential Comment SCANNED; Reactive Lymphocyte 1+
[2022-06-01 11:22] LABS: Hypochromasia 1+; Macrocytosis 2+
[2022-06-01 11:29] LABS: ALB/GLOB Ratio 0.7 RATIO (0.9-2.4); AST(SGOT) 19 U/L (15-37); Alanine Aminotransfer ALT/SGPT 24 U/L (16-61); Albumin, Serum 2.9 g/dL (3.2-5.0); Alkaline Phosphatase 125 U/L (45-117); Anion Gap 2 (5-15); BUN 12 mg/dL (7-18); BUN/Creat Ratio 21.5 RATIO (10-20); Calcium,Total 8.8 mg/dL (8.5-10.1); Chloride 107 mmol/L (98-107); Creatinine, Serum 0.56 mg/dL (0.70-1.30); EST Glomerular Filtration Rate 157 mL/min (>60); Est Glom Filt Rate - Afr Amer 190 mL/min (>60); Globulin 4.4 g/dL (2.2-4.2); Glucose 177 mg/dL (74-106); Protein, Total 7.3 g/dL (6.4-8.2); Sodium Level 137 mmol/L (136-145)
== END | disposition home or self-care (01) ==
LOC: LAB 09:38
PROVIDERS: PCP Family Medicine; Referring Provider Internal Medicine Hematology; Visit Provider Internal Medicine Hematology
DX: D46.9 Myelodysplastic syndrome, unspecified (principal); Z71.89 Other specified counseling
CPT/HCPCS: 36415; 80053; 85025

== ENCOUNTER → 2022-06-04 | Outpatient (CLI) | payer MEDICARE, SELFPAY ==
[2022-06-04 10:37] LABS: Absolute Lymphocyte Count 1.51 X10^3/uL (0.83-4.51); Absolute Neutrophil Count 0.8 X10^3/uL (2.0-7.7); Basophil# 0.01 X10^3/uL; Basophil% 0.4 % (0-1); Eosinophil# 0.05 X10^3/uL; Hematocrit 25.3 % (40-54); Hemoglobin 8.2 g/dL (13.0-16.5); Lymphocyte # 1.51 X10^3/ul (0.83-4.51); Lymphocyte % 61.6 % (19-41); Mean Corp Hgb Conc 32.4 g/dL (32-36); Mean Corpuscular Hgb 35.5 pg (27.0-32.0); Mean Corpuscular Volume 109.5 fL (80-94); Mean Platelet Vol. 10.7 fl (6.2-12.0); Monocyte# 0.08 X10^3/uL; Monocyte% 3.3 % (0-10); NRBC Flagged by Analyzer 0 % (0-5); Neutrophil # 0.78 X10^3/uL (2.7-7.7); Neutrophil % 31.9 % (47-70); POSITIVE COUNT YES; POSITIVE DIFFERENTIAL YES; POSITIVE MORPHOLOGY YES; Platelet Count 82 K/mm3 (150-450); RBC Distribution Width SD 83.4 fl (35.1-43.9); Red Blood Count 2.31 M/mm3 (4.6-6.2); White Blood Count 2.5 K/mm3 (4.4-11.0)
[2022-06-04 10:43] LABS: Differential Indicated SCAN CRITERIA MET
[2022-06-04 10:51] LABS: ALB/GLOB Ratio 0.7 RATIO (0.9-2.4); AST(SGOT) 13 U/L (15-37); Alanine Aminotransfer ALT/SGPT 22 U/L (16-61); Albumin, Serum 2.9 g/dL (3.2-5.0); Alkaline Phosphatase 120 U/L (45-117); Anion Gap 9 (5-15); BUN 18 mg/dL (7-18); BUN/Creat Ratio 33.6 RATIO (10-20); Calcium,Total 8.9 mg/dL (8.5-10.1); Chloride 104 mmol/L (98-107); Creatinine, Serum 0.54 mg/dL (0.70-1.30); EST Glomerular Filtration Rate 164 mL/min (>60); Est Glom Filt Rate - Afr Amer 199 mL/min (>60); Globulin 4.3 g/dL (2.2-4.2); Glucose 177 mg/dL (74-106); Potassium 3.8 mmol/L (3.5-5.1); Protein, Total 7.2 g/dL (6.4-8.2); Sodium Level 139 mmol/L (136-145)
[2022-06-04 11:11] LABS: Anisocytosis 2+; Differential Comment SCANNED
== END | disposition home or self-care (01) ==
LOC: LAB 09:30
PROVIDERS: PCP Family Medicine
DX: D46.9 Myelodysplastic syndrome, unspecified (principal); Z71.89 Other specified counseling
CPT/HCPCS: 36415; 80053; 85025

== ENCOUNTER → 2022-06-08 | Outpatient (CLI) | payer MEDICARE, SELFPAY ==
[2022-06-08 10:31] LABS: Absolute Neutrophil Count 0.5 X10^3/uL (2.0-7.7); Basophil# 0.01 X10^3/uL; Basophil% 0.4 % (0-1); Eosinophil# 0.05 X10^3/uL; Eosinophils% 2.2 % (0-5); Hematocrit 23.3 % (40-54); Hemoglobin 7.6 g/dL (13.0-16.5); Lymphocyte % 73.3 % (19-41); Mean Corp Hgb Conc 32.6 g/dL (32-36); Mean Corpuscular Volume 110.4 fL (80-94); Mean Platelet Vol. 11.5 fl (6.2-12.0); Monocyte# 0.05 X10^3/uL; Monocyte% 2.2 % (0-10); NRBC Flagged by Analyzer 0 % (0-5); Neutrophil % 21.5 % (47-70); POSITIVE COUNT YES; POSITIVE DIFFERENTIAL YES; POSITIVE MORPHOLOGY YES; Platelet Count 31 K/mm3 (150-450); RBC Distribution Width CV 20.5 % (11.6-14.6); RBC Distribution Width SD 82.4 fl (35.1-43.9); Red Blood Count 2.11 M/mm3 (4.6-6.2); White Blood Count 2.3 K/mm3 (4.4-11.0)
[2022-06-08 10:41] LABS: Differential Indicated SCAN CRITERIA MET
[2022-06-08 10:43] LABS: ALB/GLOB Ratio 0.8 RATIO (0.9-2.4); AST(SGOT) 12 U/L (15-37); Alanine Aminotransfer ALT/SGPT 20 U/L (16-61); Alkaline Phosphatase 114 U/L (45-117); Anion Gap 2 (5-15); BUN 14 mg/dL (7-18); BUN/Creat Ratio 26.8 RATIO (10-20); Calcium,Total 8.9 mg/dL (8.5-10.1); Chloride 106 mmol/L (98-107); Creatinine, Serum 0.52 mg/dL (0.70-1.30); EST Glomerular Filtration Rate 169 mL/min (>60); Est Glom Filt Rate - Afr Amer 204 mL/min (>60); Glucose 147 mg/dL (74-106); Potassium 3.7 mmol/L (3.5-5.1); Sodium Level 136 mmol/L (136-145)
[2022-06-08 11:13] LABS: Anisocytosis 1+; Platelet Estimate MKD DEC (ADEQ)
[2022-06-09 09:30] LABS: Pathologist Review Reviewed
== END | disposition home or self-care (01) ==
LOC: LAB 09:04
PROVIDERS: PCP Family Medicine
DX: D46.9 Myelodysplastic syndrome, unspecified (principal); Z71.89 Other specified counseling
CPT/HCPCS: 36415; 80053; 85025; 86850; 86900; 86901; 86920; 86922

== ENCOUNTER → 2022-06-09 | Outpatient (CLI) | payer MEDICARE, SELFPAY ==
[2022-06-09 12:25] VITALS: BP 122/81; PULSE 85; RESP 16; TEMP 36.5; O2SAT 98
[2022-06-09] MEDS: Acetaminophen 325 MG Tablet 650 MG PO (12:29)
[2022-06-09] MEDS: 0.9% NaCl Peripheral Flush Adult/Peds IV (12:30)
[2022-06-09 12:55] VITALS: BP 124/78; PULSE 75; RESP 16; TEMP 36.2
[2022-06-09 13:55] VITALS: BP 124/65; PULSE 71; RESP 16; TEMP 36.2
[2022-06-09 14:32] VITALS: BP 136/78; PULSE 68; RESP 16; TEMP 36.2
== END | disposition home or self-care (01) ==
LOC: MEDOUTP 11:53
PROVIDERS: PCP Family Medicine; Referring Provider Internal Medicine Hematology; Visit Provider Internal Medicine Hematology
DX: D46.9 Myelodysplastic syndrome, unspecified (principal)
CPT/HCPCS: 36430; 86644; 86850; 86900; 86901; 86920; 86922; J7040; P9040; A4216

== ENCOUNTER → 2022-06-10 | Outpatient (CLI) | payer MEDICARE, SELFPAY ==
[2022-06-10 11:30] LABS: Absolute Neutrophil Count 0.4 X10^3/uL (2.0-7.7); Basophil# 0.01 X10^3/uL; Basophil% 0.5 % (0-1); Eosinophil# 0.03 X10^3/uL; Eosinophils% 1.5 % (0-5); Hematocrit 26.7 % (40-54); Hemoglobin 8.8 g/dL (13.0-16.5); Mean Corpuscular Hgb 34.1 pg (27.0-32.0); Mean Corpuscular Volume 103.5 fL (80-94); NRBC Flagged by Analyzer 0 % (0-5); Neutrophil # 0.35 X10^3/uL (2.7-7.7); Neutrophil % 17.5 % (47-70); POSITIVE COUNT YES; POSITIVE DIFFERENTIAL YES; POSITIVE MORPHOLOGY YES; Platelet Count 19 K/mm3 (150-450); RBC Distribution Width CV 23.8 % (11.6-14.6); RBC Distribution Width SD 85.1 fl (35.1-43.9); Red Blood Count 2.58 M/mm3 (4.6-6.2)
[2022-06-10 11:32] LABS: Differential Indicated SCAN CRITERIA MET
[2022-06-10 11:57] LABS: ALB/GLOB Ratio 0.7 RATIO (0.9-2.4); AST(SGOT) 13 U/L (15-37); Alanine Aminotransfer ALT/SGPT 21 U/L (16-61); Alkaline Phosphatase 111 U/L (45-117); Anion Gap 5 (5-15); BUN 15 mg/dL (7-18); BUN/Creat Ratio 28.7 RATIO (10-20); Chloride 106 mmol/L (98-107); Creatinine, Serum 0.52 mg/dL (0.70-1.30); EST Glomerular Filtration Rate 169 mL/min (>60); Est Glom Filt Rate - Afr Amer 204 mL/min (>60); Globulin 4.2 g/dL (2.2-4.2); Glucose 116 mg/dL (74-106); Potassium 3.9 mmol/L (3.5-5.1); Protein, Total 7.2 g/dL (6.4-8.2); Sodium Level 136 mmol/L (136-145)
[2022-06-10 12:05] LABS: Anisocytosis 1+
[2022-06-11 13:09] LABS: Pathologist Review Reviewed
== END | disposition home or self-care (01) ==
LOC: LAB 08:34
PROVIDERS: PCP Family Medicine; Referring Provider Internal Medicine Hematology; Visit Provider Internal Medicine Hematology
DX: D46.9 Myelodysplastic syndrome, unspecified (principal); Z71.89 Other specified counseling
CPT/HCPCS: 36415; 80053; 85025; 86900; 86901

== ENCOUNTER → 2022-06-11 | Outpatient (CLI) | payer MEDICARE, SELFPAY ==
[2022-06-11 11:33] VITALS: BP 130/71; PULSE 73; RESP 16; TEMP 36.4; O2SAT 99
[2022-06-11 12:02] VITALS: BP 104/59; PULSE 72; RESP 16; TEMP 36.4; O2SAT 99
[2022-06-11 12:27] VITALS: BP 107/65; PULSE 74; RESP 16; TEMP 36.6; O2SAT 100
== END | disposition home or self-care (01) ==
LOC: MEDOUTP 11:14
PROVIDERS: PCP Family Medicine; Referring Provider Internal Medicine Hematology; Visit Provider Internal Medicine Hematology
DX: D46.9 Myelodysplastic syndrome, unspecified (principal)
CPT/HCPCS: 36430; 86900; 86901; 86965; J7040; P9035; A4216

== ENCOUNTER → 2022-06-15 | Outpatient (CLI) | payer MEDICARE, SELFPAY ==
[2022-06-15 10:20] LABS: Absolute Lymphocyte Count 1.33 X10^3/uL (0.83-4.51); Absolute Neutrophil Count 0.1 X10^3/uL (2.0-7.7); Eosinophil# 0.04 X10^3/uL; Eosinophils% 2.7 % (0-5); Hematocrit 24.7 % (40-54); Hemoglobin 8.3 g/dL (13.0-16.5); Lymphocyte # 1.33 X10^3/ul (0.83-4.51); Lymphocyte % 88.7 % (19-41); Mean Corp Hgb Conc 33.6 g/dL (32-36); Mean Corpuscular Hgb 35.9 pg (27.0-32.0); Mean Corpuscular Volume 106.9 fL (80-94); Mean Platelet Vol. 10.5 fl (6.2-12.0); Monocyte# 0.03 X10^3/uL; NRBC Flagged by Analyzer 0 % (0-5); Neutrophil % 6.6 % (47-70); POSITIVE COUNT YES; POSITIVE DIFFERENTIAL YES; POSITIVE MORPHOLOGY YES; Platelet Count 26 K/mm3 (150-450); RBC Distribution Width CV 22.3 % (11.6-14.6); RBC Distribution Width SD 82.7 fl (35.1-43.9); Red Blood Count 2.31 M/mm3 (4.6-6.2)
[2022-06-15 10:32] LABS: ALB/GLOB Ratio 0.7 RATIO (0.9-2.4); AST(SGOT) 13 U/L (15-37); Alanine Aminotransfer ALT/SGPT 21 U/L (16-61); Albumin, Serum 2.9 g/dL (3.2-5.0); Alkaline Phosphatase 120 U/L (45-117); Anion Gap 3 (5-15); BUN 13 mg/dL (7-18); BUN/Creat Ratio 25.8 RATIO (10-20); Chloride 106 mmol/L (98-107); EST Glomerular Filtration Rate 176 mL/min (>60); Est Glom Filt Rate - Afr Amer 213 mL/min (>60); Globulin 4.3 g/dL (2.2-4.2); Glucose 136 mg/dL (74-106); Potassium 3.9 mmol/L (3.5-5.1); Protein, Total 7.2 g/dL (6.4-8.2); Sodium Level 138 mmol/L (136-145)
[2022-06-15 10:46] LABS: Differential Indicated SCAN CRITERIA MET
[2022-06-15 10:49] LABS: White Blood Count 1.5 K/mm3 (4.4-11.0)
[2022-06-15 11:00] LABS: Anisocytosis 2+; Hypochromasia 1+; Macrocytosis 1+; Microcytosis 1+; Platelet Estimate MKD DEC (ADEQ); Polychromasia 1+
[2022-06-15 11:01] LABS: Differential Comment SCANNED; Reactive Lymphocyte 1+
[2022-06-17 10:47] LABS: Pathologist Review Reviewed
== END | disposition home or self-care (01) ==
LOC: LAB 03:58
PROVIDERS: PCP Family Medicine; Referring Provider Internal Medicine Hematology; Visit Provider Internal Medicine Hematology
DX: D46.9 Myelodysplastic syndrome, unspecified (principal); Z71.89 Other specified counseling
CPT/HCPCS: 36415; 80053; 85025

== ENCOUNTER → 2022-06-18 | Outpatient (CLI) | payer MEDICARE, SELFPAY ==
[2022-06-18 10:41] LABS: Absolute Lymphocyte Count 1.17 X10^3/uL (0.83-4.51); Absolute Neutrophil Count 0.1 X10^3/uL (2.0-7.7); Basophil# 0.01 X10^3/uL; Basophil% 0.7 % (0-1); Eosinophil# 0.02 X10^3/uL; Eosinophils% 1.5 % (0-5); Hematocrit 24.3 % (40-54); Hemoglobin 7.9 g/dL (13.0-16.5); Lymphocyte # 1.17 X10^3/ul (0.83-4.51); Lymphocyte % 85.4 % (19-41); Mean Corp Hgb Conc 32.5 g/dL (32-36); Mean Corpuscular Volume 107.5 fL (80-94); Mean Platelet Vol. 12.5 fl (6.2-12.0); Monocyte# 0.05 X10^3/uL; Monocyte% 3.6 % (0-10); NRBC Flagged by Analyzer 1.5 % (0-5); Neutrophil # 0.12 X10^3/uL (2.7-7.7); Neutrophil % 8.8 % (47-70); POSITIVE COUNT YES; POSITIVE DIFFERENTIAL YES; POSITIVE MORPHOLOGY YES; Platelet Count 47 K/mm3 (150-450); RBC Distribution Width CV 22.2 % (11.6-14.6); RBC Distribution Width SD 84.2 fl (35.1-43.9); Red Blood Count 2.26 M/mm3 (4.6-6.2); White Blood Count 1.4 K/mm3 (4.4-11.0)
[2022-06-18 10:44] LABS: Differential Indicated SCAN CRITERIA MET
[2022-06-18 11:10] LABS: Anisocytosis 2+; Polychromasia 1+
[2022-06-18 11:11] LABS: Platelet Estimate MKD DEC (ADEQ)
[2022-06-18 11:16] LABS: ALB/GLOB Ratio 0.8 RATIO (0.9-2.4); AST(SGOT) 13 U/L (15-37); Alanine Aminotransfer ALT/SGPT 22 U/L (16-61); Albumin, Serum 3.1 g/dL (3.2-5.0); Alkaline Phosphatase 123 U/L (45-117); Anion Gap 4 (5-15); BUN 13 mg/dL (7-18); BUN/Creat Ratio 25.4 RATIO (10-20); Calcium,Total 8.8 mg/dL (8.5-10.1); Chloride 106 mmol/L (98-107); Creatinine, Serum 0.51 mg/dL (0.70-1.30); EST Glomerular Filtration Rate 173 mL/min (>60); Est Glom Filt Rate - Afr Amer 209 mL/min (>60); Globulin 4.1 g/dL (2.2-4.2); Glucose 131 mg/dL (74-106); Potassium 3.8 mmol/L (3.5-5.1); Protein, Total 7.2 g/dL (6.4-8.2); Sodium Level 137 mmol/L (136-145)
[2022-06-19 12:53] LABS: Pathologist Review Reviewed
== END | disposition home or self-care (01) ==
PROVIDERS: PCP Family Medicine; Referring Provider Internal Medicine Hematology; Visit Provider Internal Medicine Hematology
DX: D46.9 Myelodysplastic syndrome, unspecified (principal); Z71.89 Other specified counseling
CPT/HCPCS: 36415; 80053; 85025

== ENCOUNTER → 2022-06-19 | Outpatient (CLI) | payer MEDICARE, SELFPAY ==
[2022-06-19 08:09] VITALS: BP 107/85; PULSE 74; RESP 16; TEMP 36.4; O2SAT 98; BMI 25.8
[2022-06-19] MEDS: 0.9% NaCl Peripheral Flush Adult/Peds IV (08:23)
[2022-06-19] MEDS: Acetaminophen 325 MG Tablet 650 MG PO (08:23)
[2022-06-19] MEDS: DiphenhydrAMINE 25 MG Capsule PO (08:23)
[2022-06-19 08:58] VITALS: BP 110/66; PULSE 77; RESP 16; TEMP 36.1; O2SAT 99
[2022-06-19 10:01] VITALS: BP 105/80; PULSE 71; RESP 16; TEMP 36.3; O2SAT 98
[2022-06-19 10:53] VITALS: BP 115/70; PULSE 70; RESP 16; TEMP 36.5; O2SAT 99
== END | disposition home or self-care (01) ==
LOC: MEDOUTP 07:50
PROVIDERS: PCP Family Medicine; Referring Provider Internal Medicine Hematology; Visit Provider Internal Medicine Hematology
DX: D46.9 Myelodysplastic syndrome, unspecified (principal)
CPT/HCPCS: 36430; 86644; 86850; 86900; 86901; 86920; 86922; J7040; P9040; A4216

== ENCOUNTER → 2022-06-22 | Outpatient (CLI) | payer MEDICARE, SELFPAY ==
[2022-06-22 10:34] LABS: Absolute Lymphocyte Count 1.09 X10^3/uL (0.83-4.51); Absolute Neutrophil Count 0.1 X10^3/uL (2.0-7.7); Eosinophil# 0.01 X10^3/uL; Eosinophils% 0.8 % (0-5); Hematocrit 26.7 % (40-54); Hemoglobin 8.9 g/dL (13.0-16.5); Lymphocyte # 1.09 X10^3/ul (0.83-4.51); Lymphocyte % 88.6 % (19-41); Mean Corp Hgb Conc 33.3 g/dL (32-36); Mean Corpuscular Hgb 34.2 pg (27.0-32.0); Mean Corpuscular Volume 102.7 fL (80-94); Mean Platelet Vol. 11.1 fl (6.2-12.0); Monocyte# 0.07 X10^3/uL; Monocyte% 5.7 % (0-10); NRBC Flagged by Analyzer 0 % (0-5); Neutrophil # 0.06 X10^3/uL (2.7-7.7); Neutrophil % 4.9 % (47-70); POSITIVE COUNT YES; POSITIVE DIFFERENTIAL YES; POSITIVE MORPHOLOGY YES; Platelet Count 88 K/mm3 (150-450); RBC Distribution Width CV 22.7 % (11.6-14.6)
[2022-06-22 10:47] LABS: ALB/GLOB Ratio 0.6 RATIO (0.9-2.4); AST(SGOT) 18 U/L (15-37); Alanine Aminotransfer ALT/SGPT 26 U/L (16-61); Albumin, Serum 2.8 g/dL (3.2-5.0); Alkaline Phosphatase 117 U/L (45-117); Anion Gap 1 (5-15); BUN 15 mg/dL (7-18); BUN/Creat Ratio 26.5 RATIO (10-20); Calcium,Total 9.1 mg/dL (8.5-10.1); Chloride 110 mmol/L (98-107); Creatinine, Serum 0.57 mg/dL (0.70-1.30); EST Glomerular Filtration Rate 153 mL/min (>60); Est Glom Filt Rate - Afr Amer 186 mL/min (>60); Globulin 4.5 g/dL (2.2-4.2); Glucose 150 mg/dL (74-106); Potassium 3.7 mmol/L (3.5-5.1); Protein, Total 7.3 g/dL (6.4-8.2); Sodium Level 139 mmol/L (136-145)
[2022-06-22 11:11] LABS: Differential Indicated SCAN CRITERIA MET; White Blood Count 1.2 K/mm3 (4.4-11.0)
[2022-06-22 11:25] LABS: Anisocytosis 2+; Differential Comment SCANNED; Hypochromasia 1+; Macrocytosis 1+; Microcytosis 1+; Platelet Estimate SLT DEC (ADEQ); Platelet Morphology LARGE; Reactive Lymphocyte 1+
[2022-06-25 09:39] LABS: Pathologist Review Reviewed
== END | disposition home or self-care (01) ==
LOC: LAB 09:11
PROVIDERS: PCP Family Medicine
DX: D46.9 Myelodysplastic syndrome, unspecified (principal)
CPT/HCPCS: 36415; 80053; 85025

== ENCOUNTER → 2022-06-25 | Outpatient (CLI) | payer MEDICARE, SELFPAY ==
[2022-06-25 10:59] LABS: Absolute Lymphocyte Count 1.13 X10^3/uL (0.83-4.51); Absolute Neutrophil Count 0.1 X10^3/uL (2.0-7.7); Eosinophil# 0.01 X10^3/uL; Eosinophils% 0.7 % (0-5); Hematocrit 27.7 % (40-54); Hemoglobin 9.1 g/dL (13.0-16.5); Lymphocyte # 1.13 X10^3/ul (0.83-4.51); Lymphocyte % 84.3 % (19-41); Mean Corp Hgb Conc 32.9 g/dL (32-36); Mean Corpuscular Hgb 34.5 pg (27.0-32.0); Mean Corpuscular Volume 104.9 fL (80-94); Mean Platelet Vol. 10.8 fl (6.2-12.0); Monocyte# 0.07 X10^3/uL; Monocyte% 5.2 % (0-10); NRBC Flagged by Analyzer 0 % (0-5); Neutrophil # 0.13 X10^3/uL (2.7-7.7); Neutrophil % 9.8 % (47-70); POSITIVE COUNT YES; POSITIVE DIFFERENTIAL YES; POSITIVE MORPHOLOGY YES; Platelet Count 112 K/mm3 (150-450); RBC Distribution Width CV 22.5 % (11.6-14.6); RBC Distribution Width SD 83.2 fl (35.1-43.9); Red Blood Count 2.64 M/mm3 (4.6-6.2)
[2022-06-25 11:06] LABS: Differential Indicated SCAN CRITERIA MET; White Blood Count 1.3 K/mm3 (4.4-11.0)
[2022-06-25 11:26] LABS: Anisocytosis 1+
[2022-06-25 11:45] LABS: ALB/GLOB Ratio 0.7 RATIO (0.9-2.4); AST(SGOT) 16 U/L (15-37); Alanine Aminotransfer ALT/SGPT 28 U/L (16-61); Albumin, Serum 3.1 g/dL (3.2-5.0); Alkaline Phosphatase 130 U/L (45-117); Anion Gap 5 (5-15); BUN 14 mg/dL (7-18); BUN/Creat Ratio 24.4 RATIO (10-20); Calcium,Total 9.7 mg/dL (8.5-10.1); Chloride 106 mmol/L (98-107); Creatinine, Serum 0.57 mg/dL (0.70-1.30); EST Glomerular Filtration Rate 151 mL/min (>60); Est Glom Filt Rate - Afr Amer 183 mL/min (>60); Globulin 4.7 g/dL (2.2-4.2); Glucose 161 mg/dL (74-106); Potassium 3.6 mmol/L (3.5-5.1); Protein, Total 7.8 g/dL (6.4-8.2); Sodium Level 138 mmol/L (136-145)
[2022-06-26 12:13] LABS: Pathologist Review Reviewed
== END | disposition home or self-care (01) ==
LOC: LAB 09:01
PROVIDERS: PCP Family Medicine; Referring Provider Internal Medicine Hematology; Visit Provider Internal Medicine Hematology
DX: D46.9 Myelodysplastic syndrome, unspecified (principal); Z71.89 Other specified counseling
CPT/HCPCS: 36415; 80053; 85025

== ENCOUNTER → 2022-06-29 | Outpatient (CLI) | payer MEDICARE, SELFPAY ==
[2022-06-29 11:09] LABS: Absolute Lymphocyte Count 1.23 X10^3/uL (0.83-4.51); Absolute Neutrophil Count 0.2 X10^3/uL (2.0-7.7); Basophil# 0.01 X10^3/uL; Basophil% 0.6 % (0-1); Eosinophil# 0.01 X10^3/uL; Eosinophils% 0.6 % (0-5); Hematocrit 26.8 % (40-54); Hemoglobin 8.6 g/dL (13.0-16.5); Lymphocyte # 1.23 X10^3/ul (0.83-4.51); Lymphocyte % 75.9 % (19-41); Mean Corp Hgb Conc 32.1 g/dL (32-36); Mean Corpuscular Volume 105.9 fL (80-94); Mean Platelet Vol. 10.2 fl (6.2-12.0); Monocyte# 0.12 X10^3/uL; Monocyte% 7.4 % (0-10); NRBC Flagged by Analyzer 0 % (0-5); Neutrophil # 0.24 X10^3/uL (2.7-7.7); Neutrophil % 14.9 % (47-70); POSITIVE DIFFERENTIAL YES; POSITIVE MORPHOLOGY YES; Platelet Count 115 K/mm3 (150-450); RBC Distribution Width CV 22.7 % (11.6-14.6); RBC Distribution Width SD 84.3 fl (35.1-43.9); Red Blood Count 2.53 M/mm3 (4.6-6.2); White Blood Count 1.6 K/mm3 (4.4-11.0)
[2022-06-29 11:12] LABS: Differential Indicated SCAN CRITERIA MET
[2022-06-29 11:22] LABS: ALB/GLOB Ratio 0.7 RATIO (0.9-2.4); AST(SGOT) 12 U/L (15-37); Alanine Aminotransfer ALT/SGPT 21 U/L (16-61); Alkaline Phosphatase 113 U/L (45-117); Anion Gap 4 (5-15); BUN 13 mg/dL (7-18); BUN/Creat Ratio 19.6 RATIO (10-20); Calcium,Total 9.3 mg/dL (8.5-10.1); Chloride 106 mmol/L (98-107); Creatinine, Serum 0.66 mg/dL (0.70-1.30); EST Glomerular Filtration Rate 128 mL/min (>60); Est Glom Filt Rate - Afr Amer 155 mL/min (>60); Globulin 4.5 g/dL (2.2-4.2); Glucose 117 mg/dL (74-106); Potassium 3.9 mmol/L (3.5-5.1); Protein, Total 7.5 g/dL (6.4-8.2); Sodium Level 136 mmol/L (136-145)
[2022-06-29 11:43] LABS: Anisocytosis 1+; Hypochromasia 1+
[2022-06-29 11:44] LABS: Platelet Estimate MOD DEC (ADEQ)
== END | disposition home or self-care (01) ==
LOC: LAB 09:24
PROVIDERS: PCP Family Medicine
DX: D46.9 Myelodysplastic syndrome, unspecified (principal); Z71.89 Other specified counseling
CPT/HCPCS: 36415; 80053; 85025

== ENCOUNTER → 2022-07-02 | Outpatient (CLI) | payer MEDICARE, SELFPAY ==
[2022-07-02 11:08] LABS: Absolute Neutrophil Count 0.5 X10^3/uL (2.0-7.7); Basophil# 0.01 X10^3/uL; Basophil% 0.6 % (0-1); Hemoglobin 8.6 g/dL (13.0-16.5); Mean Corp Hgb Conc 31.9 g/dL (32-36); Mean Corpuscular Hgb 34.7 pg (27.0-32.0); Mean Corpuscular Volume 108.9 fL (80-94); Mean Platelet Vol. 10.4 fl (6.2-12.0); Monocyte# 0.12 X10^3/uL; NRBC Flagged by Analyzer 0 % (0-5); Neutrophil # 0.48 X10^3/uL (2.7-7.7); Neutrophil % 27.8 % (47-70); POSITIVE DIFFERENTIAL YES; POSITIVE MORPHOLOGY YES; Platelet Count 113 K/mm3 (150-450); RBC Distribution Width CV 23.5 % (11.6-14.6); RBC Distribution Width SD 89.8 fl (35.1-43.9); Red Blood Count 2.48 M/mm3 (4.6-6.2); White Blood Count 1.7 K/mm3 (4.4-11.0)
[2022-07-02 11:09] LABS: Differential Indicated SCAN CRITERIA MET
[2022-07-02 11:18] LABS: ALB/GLOB Ratio 0.7 RATIO (0.9-2.4); AST(SGOT) 14 U/L (15-37); Alanine Aminotransfer ALT/SGPT 23 U/L (16-61); Albumin, Serum 2.9 g/dL (3.2-5.0); Alkaline Phosphatase 132 U/L (45-117); Anion Gap 3 (5-15); BUN 12 mg/dL (7-18); BUN/Creat Ratio 23.4 RATIO (10-20); Calcium,Total 9.1 mg/dL (8.5-10.1); Chloride 106 mmol/L (98-107); Creatinine, Serum 0.51 mg/dL (0.70-1.30); EST Glomerular Filtration Rate 172 mL/min (>60); Est Glom Filt Rate - Afr Amer 208 mL/min (>60); Globulin 4.3 g/dL (2.2-4.2); Glucose 185 mg/dL (74-106); Potassium 3.9 mmol/L (3.5-5.1); Protein, Total 7.2 g/dL (6.4-8.2); Sodium Level 135 mmol/L (136-145)
[2022-07-02 11:24] LABS: Anisocytosis 1+; Differential Comment SCANNED
[2022-07-03 11:58] LABS: Pathologist Review Reviewed
== END | disposition home or self-care (01) ==
LOC: LAB 08:05
PROVIDERS: PCP Family Medicine; Referring Provider Internal Medicine Hematology; Visit Provider Internal Medicine Hematology
DX: D46.9 Myelodysplastic syndrome, unspecified (principal)
CPT/HCPCS: 36415; 80053; 85025

== ENCOUNTER → 2022-07-06 | Outpatient (CLI) | payer MEDICARE, SELFPAY ==
[2022-07-06 10:17] LABS: Absolute Lymphocyte Count 1.08 X10^3/uL (0.83-4.51); Absolute Neutrophil Count 0.5 X10^3/uL (2.0-7.7); Eosinophil# 0.01 X10^3/uL; Eosinophils% 0.5 % (0-5); Hematocrit 26.4 % (40-54); Hemoglobin 8.7 g/dL (13.0-16.5); Lymphocyte # 1.08 X10^3/ul (0.83-4.51); Lymphocyte % 57.8 % (19-41); Mean Corpuscular Hgb 35.5 pg (27.0-32.0); Mean Corpuscular Volume 107.8 fL (80-94); Mean Platelet Vol. 10.6 fl (6.2-12.0); Monocyte# 0.23 X10^3/uL; Monocyte% 12.3 % (0-10); NRBC Flagged by Analyzer 0 % (0-5); Neutrophil # 0.54 X10^3/uL (2.7-7.7); Neutrophil % 28.9 % (47-70); POSITIVE DIFFERENTIAL YES; POSITIVE MORPHOLOGY YES; Platelet Count 110 K/mm3 (150-450); RBC Distribution Width CV 23.7 % (11.6-14.6); RBC Distribution Width SD 89.9 fl (35.1-43.9); Red Blood Count 2.45 M/mm3 (4.6-6.2); White Blood Count 1.9 K/mm3 (4.4-11.0)
[2022-07-06 10:31] LABS: ALB/GLOB Ratio 0.7 RATIO (0.9-2.4); AST(SGOT) 13 U/L (15-37); Alanine Aminotransfer ALT/SGPT 25 U/L (16-61); Alkaline Phosphatase 119 U/L (45-117); Anion Gap 6 (5-15); BUN 14 mg/dL (7-18); BUN/Creat Ratio 30.6 RATIO (10-20); Chloride 105 mmol/L (98-107); Creatinine, Serum 0.46 mg/dL (0.70-1.30); EST Glomerular Filtration Rate 197 mL/min (>60); Est Glom Filt Rate - Afr Amer 238 mL/min (>60); Globulin 4.3 g/dL (2.2-4.2); Glucose 116 mg/dL (74-106); Potassium 4.2 mmol/L (3.5-5.1); Protein, Total 7.3 g/dL (6.4-8.2); Sodium Level 137 mmol/L (136-145)
[2022-07-06 10:34] LABS: Differential Indicated SCAN CRITERIA MET
[2022-07-06 11:03] LABS: Differential Comment SCANNED; Reactive Lymphocyte 1+
[2022-07-06 11:04] LABS: Anisocytosis 2+; Hypochromasia 1+; Macrocytosis 2+
== END | disposition home or self-care (01) ==
LOC: LAB 08:08
PROVIDERS: PCP Family Medicine
DX: D46.9 Myelodysplastic syndrome, unspecified (principal); Z71.89 Other specified counseling
CPT/HCPCS: 36415; 80053; 85025

== ENCOUNTER → 2022-07-16 | Outpatient (CLI) | payer MEDICARE, SELFPAY ==
[2022-07-16 10:42] LABS: Absolute Lymphocyte Count 0.69 X10^3/uL (0.83-4.51); Absolute Neutrophil Count 0.4 X10^3/uL (2.0-7.7); Hematocrit 23.8 % (40-54); Hemoglobin 7.6 g/dL (13.0-16.5); Lymphocyte # 0.69 X10^3/ul (0.83-4.51); Lymphocyte % 57.5 % (19-41); Mean Corp Hgb Conc 31.9 g/dL (32-36); Mean Corpuscular Hgb 35.3 pg (27.0-32.0); Mean Corpuscular Volume 110.7 fL (80-94); Mean Platelet Vol. 9.9 fl (6.2-12.0); Monocyte# 0.07 X10^3/uL; Monocyte% 5.8 % (0-10); NRBC Flagged by Analyzer 0 % (0-5); Neutrophil # 0.43 X10^3/uL (2.7-7.7); Neutrophil % 35.9 % (47-70); POSITIVE COUNT YES; POSITIVE DIFFERENTIAL YES; POSITIVE MORPHOLOGY YES; RBC Distribution Width CV 23.5 % (11.6-14.6); RBC Distribution Width SD 90.4 fl (35.1-43.9); Red Blood Count 2.15 M/mm3 (4.6-6.2)
[2022-07-16 11:05] LABS: White Blood Count 1.2 K/mm3 (4.4-11.0)
[2022-07-16 11:06] LABS: Differential Indicated SCAN CRITERIA MET; Platelet Count 47 K/mm3 (150-450)
[2022-07-16 11:15] LABS: ALB/GLOB Ratio 0.8 RATIO (0.9-2.4); AST(SGOT) 14 U/L (15-37); Alanine Aminotransfer ALT/SGPT 22 U/L (16-61); Alkaline Phosphatase 119 U/L (45-117); Anion Gap 8 (5-15); BUN 17 mg/dL (7-18); BUN/Creat Ratio 27.6 RATIO (10-20); Calcium,Total 8.9 mg/dL (8.5-10.1); Chloride 108 mmol/L (98-107); Creatinine, Serum 0.62 mg/dL (0.70-1.30); EST Glomerular Filtration Rate 139 mL/min (>60); Est Glom Filt Rate - Afr Amer 169 mL/min (>60); Glucose 201 mg/dL (74-106); Potassium 3.8 mmol/L (3.5-5.1); Sodium Level 142 mmol/L (136-145)
[2022-07-16 12:00] LABS: Anisocytosis 2+; Platelet Estimate MKD DEC (ADEQ)
[2022-07-20 09:14] LABS: Pathologist Review Reviewed
== END | disposition home or self-care (01) ==
LOC: LAB 09:04
PROVIDERS: PCP Family Medicine; Referring Provider Internal Medicine Hematology; Visit Provider Internal Medicine Hematology
DX: D46.9 Myelodysplastic syndrome, unspecified (principal); Z71.89 Other specified counseling
CPT/HCPCS: 36415; 80053; 85025; 86850; 86900; 86901; 86920; 86922

== ENCOUNTER 2022-07-17 07:56 | Outpatient (CLI) | payer MEDICARE, SELFPAY ==
[2022-07-17 08:10] VITALS: BP 125/77; PULSE 74; RESP 16; O2SAT 100
[2022-07-17] MEDS: DiphenhydrAMINE 25 MG Capsule PO (08:39)
[2022-07-17] MEDS: 0.9% NaCl VAD Flush IV (08:39)
[2022-07-17] MEDS: Acetaminophen 325 MG Tablet 650 MG PO (08:39)
[2022-07-17 09:44] VITALS: BP 107/65; PULSE 68; RESP 16; TEMP 36.9; O2SAT 99
[2022-07-17 10:51] VITALS: BP 112/66; PULSE 63; RESP 16; TEMP 36; O2SAT 99
== END 2022-07-17 07:57 | disposition home or self-care (01) ==
LOC: MEDOUTP 07:56
PROVIDERS: PCP Family Medicine; Referring Provider Internal Medicine Hematology; Visit Provider Internal Medicine Hematology
DX: D46.9 Myelodysplastic syndrome, unspecified (principal)
CPT/HCPCS: 36430; 86850; 86900; 86901; 86920; 86922; J7040; P9040; A4216

== ENCOUNTER → 2022-07-20 | Outpatient (REF) | payer MEDICARE, SELFPAY | LOC: LAB 08:51 | PROVIDERS: PCP Family Medicine; Visit Provider Internal Medicine Rheumatology | DX: D46.9 Myelodysplastic syndrome, unspecified (principal); Z71.89 Other specified counseling | CPT/HCPCS: 36415; 80053; 85025; 86850; 86900; 86901; 86920; 86922 ==

== ENCOUNTER 2022-07-21 08:55 | Outpatient (CLI) | payer MEDICARE, SELFPAY ==
[2022-07-20 11:17] LABS: Absolute Lymphocyte Count 0.88 X10^3/uL (0.83-4.51); Absolute Neutrophil Count 0.1 X10^3/uL (2.0-7.7); Eosinophil# 0.01 X10^3/uL; Hematocrit 24.7 % (40-54); Lymphocyte # 0.88 X10^3/ul (0.83-4.51); Lymphocyte % 84.6 % (19-41); Mean Corp Hgb Conc 32.4 g/dL (32-36); Mean Corpuscular Hgb 34.8 pg (27.0-32.0); Mean Corpuscular Volume 107.4 fL (80-94); Mean Platelet Vol. 9.6 fl (6.2-12.0); Monocyte# 0.03 X10^3/uL; Monocyte% 2.9 % (0-10); NRBC Flagged by Analyzer 0 % (0-5); Neutrophil # 0.11 X10^3/uL (2.7-7.7); Neutrophil % 10.5 % (47-70); POSITIVE COUNT YES; POSITIVE DIFFERENTIAL YES; POSITIVE MORPHOLOGY YES; RBC Distribution Width CV 22.5 % (11.6-14.6)
[2022-07-20 11:32] LABS: ALB/GLOB Ratio 0.7 RATIO (0.9-2.4); AST(SGOT) 14 U/L (15-37); Alanine Aminotransfer ALT/SGPT 20 U/L (16-61); Albumin, Serum 2.8 g/dL (3.2-5.0); Alkaline Phosphatase 144 U/L (45-117); Anion Gap 8 (5-15); BUN 17 mg/dL (7-18); BUN/Creat Ratio 37.9 RATIO (10-20); Calcium,Total 8.9 mg/dL (8.5-10.1); Chloride 104 mmol/L (98-107); Creatinine, Serum 0.45 mg/dL (0.70-1.30); EST Glomerular Filtration Rate 201 mL/min (>60); Est Glom Filt Rate - Afr Amer 244 mL/min (>60); Globulin 4.2 g/dL (2.2-4.2); Glucose 210 mg/dL (74-106); Sodium Level 137 mmol/L (136-145)
[2022-07-20 11:37] LABS: Differential Indicated SCAN CRITERIA MET; Platelet Count 16 K/mm3 (150-450)
[2022-07-20 11:49] LABS: Anisocytosis 2+; Platelet Estimate MKD DEC (ADEQ)
[2022-07-21 09:20] VITALS: BP 131/79; PULSE 72; RESP 16; TEMP 36.6; O2SAT 100
[2022-07-21] MEDS: Acetaminophen 325 MG Tablet 650 MG PO (09:30)
[2022-07-21] MEDS: DiphenhydrAMINE 25 MG Capsule PO (09:30)
[2022-07-21 10:24] VITALS: BP 125/67; PULSE 66; RESP 16; TEMP 36.4
[2022-07-21] MEDS: 0.9% NaCl VAD Flush IV (10:44)
[2022-07-21 11:20] VITALS: BP 147/67; PULSE 66; RESP 16; TEMP 36.6; O2SAT 99
[2022-07-21 12:20] VITALS: BP 133/70; PULSE 64; RESP 16; TEMP 36.6; O2SAT 100
[2022-07-21 13:22] VITALS: BP 124/71; PULSE 66; RESP 16
[2022-07-21 14:47] LABS: Pathologist Review Reviewed
== END 2022-07-21 08:56 | disposition home or self-care (01) ==
LOC: MEDOUTP 08:55
PROVIDERS: PCP Family Medicine; Referring Provider Internal Medicine Hematology; Visit Provider Internal Medicine Hematology
DX: D46.9 Myelodysplastic syndrome, unspecified (principal)
CPT/HCPCS: 36415; 36430; 80053; 85025; 86644; 86850; 86900; 86901; 86920; 86922; 86965; J7040; P9035; P9040; A4216

== ENCOUNTER → 2022-07-23 | Outpatient (CLI) | payer MEDICARE, SELFPAY ==
[2022-07-23 10:07] LABS: Absolute Lymphocyte Count 0.97 X10^3/uL (0.83-4.51); Absolute Neutrophil Count 0.1 X10^3/uL (2.0-7.7); Eosinophil# 0.01 X10^3/uL; Eosinophils% 0.9 % (0-5); Hematocrit 27.3 % (40-54); Hemoglobin 9.4 g/dL (13.0-16.5); Lymphocyte # 0.97 X10^3/ul (0.83-4.51); Lymphocyte % 90.7 % (19-41); Mean Corp Hgb Conc 34.4 g/dL (32-36); Mean Corpuscular Hgb 34.4 pg (27.0-32.0); Mean Platelet Vol. 11.6 fl (6.2-12.0); Monocyte# 0.03 X10^3/uL; Monocyte% 2.8 % (0-10); NRBC Flagged by Analyzer 0 % (0-5); Neutrophil # 0.06 X10^3/uL (2.7-7.7); Neutrophil % 5.6 % (47-70); POSITIVE COUNT YES; POSITIVE DIFFERENTIAL YES; POSITIVE MORPHOLOGY YES; Red Blood Count 2.73 M/mm3 (4.6-6.2)
[2022-07-23 10:16] LABS: Differential Indicated SCAN CRITERIA MET
[2022-07-23 10:21] LABS: ALB/GLOB Ratio 0.6 RATIO (0.9-2.4); AST(SGOT) 12 U/L (15-37); Alanine Aminotransfer ALT/SGPT 27 U/L (16-61); Albumin, Serum 2.8 g/dL (3.2-5.0); Alkaline Phosphatase 117 U/L (45-117); Anion Gap 7 (5-15); BUN 14 mg/dL (7-18); BUN/Creat Ratio 25.6 RATIO (10-20); Chloride 107 mmol/L (98-107); Creatinine, Serum 0.55 mg/dL (0.70-1.30); EST Glomerular Filtration Rate 160 mL/min (>60); Est Glom Filt Rate - Afr Amer 194 mL/min (>60); Globulin 4.4 g/dL (2.2-4.2); Glucose 198 mg/dL (74-106); Potassium 3.8 mmol/L (3.5-5.1); Protein, Total 7.2 g/dL (6.4-8.2); Sodium Level 139 mmol/L (136-145)
[2022-07-23 10:29] LABS: Platelet Count 21 K/mm3 (150-450); White Blood Count 1.1 K/mm3 (4.4-11.0)
[2022-07-23 10:59] LABS: Anisocytosis 2+; Platelet Estimate MKD DEC (ADEQ); Reactive Lymphocyte 1+
[2022-07-24 10:25] LABS: Pathologist Review Reviewed
== END | disposition home or self-care (01) ==
LOC: LAB 07:48
PROVIDERS: PCP Family Medicine
DX: D46.9 Myelodysplastic syndrome, unspecified (principal); Z71.89 Other specified counseling
CPT/HCPCS: 36415; 80053; 85025

== ENCOUNTER → 2022-07-27 | Outpatient (CLI) | payer MEDICARE, SELFPAY ==
[2022-07-27 11:40] LABS: Absolute Lymphocyte Count 0.78 X10^3/uL (0.83-4.51); Eosinophil# 0.01 X10^3/uL; Eosinophils% 1.2 % (0-5); Hematocrit 26.3 % (40-54); Hemoglobin 8.3 g/dL (13.0-16.5); Lymphocyte # 0.78 X10^3/ul (0.83-4.51); Lymphocyte % 90.7 % (19-41); Mean Corp Hgb Conc 31.6 g/dL (32-36); Mean Corpuscular Hgb 32.8 pg (27.0-32.0); Monocyte# 0.04 X10^3/uL; Monocyte% 4.7 % (0-10); NRBC Flagged by Analyzer 0 % (0-5); Neutrophil # 0.03 X10^3/uL (2.7-7.7); Neutrophil % 3.4 % (47-70); POSITIVE COUNT YES; POSITIVE DIFFERENTIAL YES; POSITIVE MORPHOLOGY YES; RBC Distribution Width CV 22.3 % (11.6-14.6); RBC Distribution Width SD 81.6 fl (35.1-43.9); Red Blood Count 2.53 M/mm3 (4.6-6.2)
[2022-07-27 11:46] LABS: Differential Indicated SCAN CRITERIA MET; Platelet Count 13 K/mm3 (150-450); White Blood Count 0.9 K/mm3 (4.4-11.0)
[2022-07-27 11:55] LABS: ALB/GLOB Ratio 0.6 RATIO (0.9-2.4); AST(SGOT) 8 U/L (15-37); Alanine Aminotransfer ALT/SGPT 19 U/L (16-61); Albumin, Serum 2.6 g/dL (3.2-5.0); Alkaline Phosphatase 108 U/L (45-117); Anion Gap 7 (5-15); Anisocytosis 2+; BUN 13 mg/dL (7-18); BUN/Creat Ratio 27.7 RATIO (10-20); Calcium,Total 8.8 mg/dL (8.5-10.1); Chloride 102 mmol/L (98-107); Creatinine, Serum 0.47 mg/dL (0.70-1.30); EST Glomerular Filtration Rate 191 mL/min (>60); Est Glom Filt Rate - Afr Amer 231 mL/min (>60); Globulin 4.6 g/dL (2.2-4.2); Glucose 193 mg/dL (74-106); Platelet Estimate MKD DEC (ADEQ); Potassium 3.8 mmol/L (3.5-5.1); Protein, Total 7.2 g/dL (6.4-8.2); Sodium Level 137 mmol/L (136-145)
[2022-07-28 12:47] LABS: Pathologist Review Reviewed
== END | disposition home or self-care (01) ==
LOC: LAB 09:11
PROVIDERS: PCP Family Medicine; Referring Provider Internal Medicine Hematology; Visit Provider Internal Medicine Hematology
DX: D46.9 Myelodysplastic syndrome, unspecified (principal); Z71.89 Other specified counseling
CPT/HCPCS: 36415; 80053; 85025; 86900; 86901

== ENCOUNTER 2022-07-28 08:26 | Outpatient (CLI) | payer MEDICARE, SELFPAY ==
[2022-07-28] MEDS: 0.9% NaCl VAD Flush IV (08:41)
[2022-07-28] MEDS: Acetaminophen 325 MG Tablet 650 MG PO (08:50)
[2022-07-28] MEDS: DiphenhydrAMINE 25 MG Capsule PO (08:50)
[2022-07-28 08:51] VITALS: BP 112/77; PULSE 78; RESP 16; TEMP 36.9; O2SAT 98; BMI 26.1
[2022-07-28 09:21] VITALS: BP 118/68; PULSE 74; RESP 16; TEMP 37.1
== END 2022-07-28 08:27 | disposition home or self-care (01) ==
LOC: MEDOUTP 08:26
PROVIDERS: PCP Family Medicine; Referring Provider Internal Medicine Hematology; Visit Provider Internal Medicine Hematology
DX: D46.9 Myelodysplastic syndrome, unspecified (principal)
CPT/HCPCS: 36430; 86900; 86901; 86965; J7040; P9035; A4216

== ENCOUNTER → 2022-07-30 | Outpatient (CLI) | payer MEDICARE, SELFPAY ==
[2022-07-30 11:14] LABS: Absolute Lymphocyte Count 0.68 X10^3/uL (0.83-4.51); Eosinophil# 0.01 X10^3/uL; Eosinophils% 1.3 % (0-5); Hematocrit 24.5 % (40-54); Hemoglobin 8.1 g/dL (13.0-16.5); Lymphocyte # 0.68 X10^3/ul (0.83-4.51); Lymphocyte % 88.3 % (19-41); Mean Corp Hgb Conc 33.1 g/dL (32-36); Mean Corpuscular Hgb 34.2 pg (27.0-32.0); Mean Corpuscular Volume 103.4 fL (80-94); Monocyte# 0.04 X10^3/uL; Monocyte% 5.2 % (0-10); NRBC Flagged by Analyzer 0 % (0-5); Neutrophil # 0.04 X10^3/uL (2.7-7.7); Neutrophil % 5.2 % (47-70); POSITIVE COUNT YES; POSITIVE DIFFERENTIAL YES; POSITIVE MORPHOLOGY YES; Platelet Count 47 K/mm3 (150-450); RBC Distribution Width CV 22.5 % (11.6-14.6); RBC Distribution Width SD 79.6 fl (35.1-43.9); Red Blood Count 2.37 M/mm3 (4.6-6.2); White Blood Count 0.8 K/mm3 (4.4-11.0)
[2022-07-30 11:16] LABS: Differential Indicated SCAN CRITERIA MET
[2022-07-30 11:26] LABS: ALB/GLOB Ratio 0.5 RATIO (0.9-2.4); AST(SGOT) 13 U/L (15-37); Alanine Aminotransfer ALT/SGPT 20 U/L (16-61); Albumin, Serum 2.6 g/dL (3.2-5.0); Alkaline Phosphatase 102 U/L (45-117); Anion Gap 8 (5-15); BUN 12 mg/dL (7-18); BUN/Creat Ratio 23.2 RATIO (10-20); Calcium,Total 9.2 mg/dL (8.5-10.1); Chloride 101 mmol/L (98-107); Creatinine, Serum 0.52 mg/dL (0.70-1.30); EST Glomerular Filtration Rate 170 mL/min (>60); Est Glom Filt Rate - Afr Amer 206 mL/min (>60); Glucose 148 mg/dL (74-106); Potassium 3.6 mmol/L (3.5-5.1); Protein, Total 7.6 g/dL (6.4-8.2); Sodium Level 136 mmol/L (136-145)
[2022-07-30 12:18] LABS: Anisocytosis 1+
[2022-08-04 09:01] LABS: Pathologist Review Reviewed
== END | disposition home or self-care (01) ==
LOC: LAB 08:21
PROVIDERS: PCP Family Medicine; Referring Provider Internal Medicine Hematology; Visit Provider Internal Medicine Hematology
DX: D46.9 Myelodysplastic syndrome, unspecified (principal); Z71.89 Other specified counseling
CPT/HCPCS: 36415; 80053; 85025

== ENCOUNTER → 2022-08-04 | Outpatient (CLI) | payer MEDICARE, SELFPAY ==
[2022-08-04 10:27] LABS: Absolute Lymphocyte Count 0.64 X10^3/uL (0.83-4.51); Hematocrit 21.4 % (40-54); Hemoglobin 6.9 g/dL (13.0-16.5); Lymphocyte # 0.64 X10^3/ul (0.83-4.51); Lymphocyte % 85.3 % (19-41); Mean Corp Hgb Conc 32.2 g/dL (32-36); Mean Corpuscular Hgb 33.7 pg (27.0-32.0); Mean Corpuscular Volume 104.4 fL (80-94); Mean Platelet Vol. 10.1 fl (6.2-12.0); Monocyte# 0.06 X10^3/uL; NRBC Flagged by Analyzer 0 % (0-5); Neutrophil # 0.04 X10^3/uL (2.7-7.7); Neutrophil % 5.4 % (47-70); POSITIVE COUNT YES; POSITIVE DIFFERENTIAL YES; POSITIVE MORPHOLOGY YES; Platelet Count 72 K/mm3 (150-450); RBC Distribution Width CV 22.6 % (11.6-14.6); RBC Distribution Width SD 81.6 fl (35.1-43.9); Red Blood Count 2.05 M/mm3 (4.6-6.2)
[2022-08-04 10:40] LABS: ALB/GLOB Ratio 0.5 RATIO (0.9-2.4); AST(SGOT) 16 U/L (15-37); Alanine Aminotransfer ALT/SGPT 39 U/L (16-61); Albumin, Serum 2.3 g/dL (3.2-5.0); Alkaline Phosphatase 88 U/L (45-117); Anion Gap 9 (5-15); BUN 12 mg/dL (7-18); BUN/Creat Ratio 20.3 RATIO (10-20); Calcium,Total 8.8 mg/dL (8.5-10.1); Chloride 101 mmol/L (98-107); Creatinine, Serum 0.59 mg/dL (0.70-1.30); EST Glomerular Filtration Rate 146 mL/min (>60); Est Glom Filt Rate - Afr Amer 177 mL/min (>60); Globulin 4.7 g/dL (2.2-4.2); Glucose 200 mg/dL (74-106); Potassium 3.7 mmol/L (3.5-5.1); Sodium Level 135 mmol/L (136-145)
[2022-08-04 10:58] LABS: Differential Indicated SCAN CRITERIA MET; White Blood Count 0.8 K/mm3 (4.4-11.0)
[2022-08-04 11:05] LABS: Differential Comment SCANNED
[2022-08-04 14:29] LABS: Pathologist Review Reviewed
== END | disposition home or self-care (01) ==
LOC: LAB 09:17
PROVIDERS: PCP Family Medicine
DX: D46.9 Myelodysplastic syndrome, unspecified (principal)
CPT/HCPCS: 36415; 80053; 85025; 86850; 86900; 86901; 86920; 86922

== ENCOUNTER 2022-08-05 12:18 | Outpatient (CLI) | payer MEDICARE, SELFPAY ==
[2022-08-05] MEDS: 0.9% NaCl Peripheral Flush Adult/Peds IV (13:00)
[2022-08-05 13:04] VITALS: BP 117/79; PULSE 80; RESP 16; TEMP 36.2; BMI 26.4
[2022-08-05] MEDS: DiphenhydrAMINE 25 MG Capsule PO (13:39)
[2022-08-05] MEDS: Acetaminophen 325 MG Tablet 650 MG PO (13:39)
[2022-08-05 14:00] VITALS: BP 117/74; PULSE 81; RESP 16; TEMP 36.4
[2022-08-05 15:00] VITALS: BP 107/67; PULSE 79; RESP 16; TEMP 36.3; O2SAT 100
[2022-08-05 15:45] VITALS: BP 122/82; PULSE 70; RESP 16; TEMP 36; O2SAT 100
== END 2022-08-05 12:19 | disposition home or self-care (01) ==
LOC: MEDOUTP 12:19
PROVIDERS: PCP Family Medicine; Referring Provider Internal Medicine Hematology; Visit Provider Internal Medicine Hematology
DX: D64.9 Anemia, unspecified (principal)
CPT/HCPCS: 36430; 86644; 86850; 86900; 86901; 86920; 86922; J7040; P9040; A4216

== ENCOUNTER → 2022-08-06 | Outpatient (CLI) | payer MEDICARE, SELFPAY ==
[2022-08-06 11:01] LABS: Absolute Lymphocyte Count 0.54 X10^3/uL (0.83-4.51); Absolute Neutrophil Count 0.1 X10^3/uL (2.0-7.7); Eosinophil# 0.01 X10^3/uL; Eosinophils% 1.4 % (0-5); Hematocrit 24.3 % (40-54); Hemoglobin 8.3 g/dL (13.0-16.5); Lymphocyte # 0.54 X10^3/ul (0.83-4.51); Mean Corp Hgb Conc 34.2 g/dL (32-36); Mean Corpuscular Hgb 34.6 pg (27.0-32.0); Mean Corpuscular Volume 101.3 fL (80-94); Mean Platelet Vol. 9.6 fl (6.2-12.0); Monocyte# 0.08 X10^3/uL; Monocyte% 11.1 % (0-10); NRBC Flagged by Analyzer 0 % (0-5); Neutrophil # 0.08 X10^3/uL (2.7-7.7); Neutrophil % 11.1 % (47-70); POSITIVE COUNT YES; POSITIVE DIFFERENTIAL YES; POSITIVE MORPHOLOGY YES; Platelet Count 83 K/mm3 (150-450); RBC Distribution Width CV 23.3 % (11.6-14.6); RBC Distribution Width SD 79.6 fl (35.1-43.9)
[2022-08-06 11:25] LABS: ALB/GLOB Ratio 0.5 RATIO (0.9-2.4); AST(SGOT) 22 U/L (15-37); Alanine Aminotransfer ALT/SGPT 42 U/L (16-61); Albumin, Serum 2.3 g/dL (3.2-5.0); Alkaline Phosphatase 87 U/L (45-117); Anion Gap 8 (5-15); BUN 14 mg/dL (7-18); BUN/Creat Ratio 23.3 RATIO (10-20); Calcium,Total 8.8 mg/dL (8.5-10.1); Chloride 102 mmol/L (98-107); EST Glomerular Filtration Rate 143 mL/min (>60); Est Glom Filt Rate - Afr Amer 173 mL/min (>60); Globulin 4.7 g/dL (2.2-4.2); Glucose 204 mg/dL (74-106); Potassium 3.6 mmol/L (3.5-5.1); Sodium Level 134 mmol/L (136-145)
[2022-08-06 11:55] LABS: Differential Indicated SCAN CRITERIA MET; White Blood Count 0.7 K/mm3 (4.4-11.0)
[2022-08-06 12:26] LABS: Anisocytosis 1+; Platelet Estimate MOD DEC (ADEQ)
[2022-08-07 14:02] LABS: Pathologist Review Reviewed
== END | disposition home or self-care (01) ==
LOC: LAB 09:42
PROVIDERS: PCP Family Medicine; Visit Provider Internal Medicine Hematology
DX: D46.9 Myelodysplastic syndrome, unspecified (principal); Z71.89 Other specified counseling
CPT/HCPCS: 36415; 80053; 85025

== ENCOUNTER → 2022-08-10 | Outpatient (CLI) | payer MEDICARE, SELFPAY ==
[2022-08-10 10:47] LABS: Absolute Lymphocyte Count 0.91 X10^3/uL (0.83-4.51); Absolute Neutrophil Count 0.1 X10^3/uL (2.0-7.7); Basophil# 0.01 X10^3/uL; Basophil% 0.9 % (0-1); Hematocrit 25.2 % (40-54); Hemoglobin 8.5 g/dL (13.0-16.5); Lymphocyte # 0.91 X10^3/ul (0.83-4.51); Lymphocyte % 78.4 % (19-41); Mean Corp Hgb Conc 33.7 g/dL (32-36); Mean Corpuscular Hgb 33.5 pg (27.0-32.0); Mean Corpuscular Volume 99.2 fL (80-94); Mean Platelet Vol. 10.5 fl (6.2-12.0); Monocyte# 0.15 X10^3/uL; Monocyte% 12.9 % (0-10); NRBC Flagged by Analyzer 0 % (0-5); Neutrophil # 0.08 X10^3/uL (2.7-7.7); Neutrophil % 6.9 % (47-70); POSITIVE COUNT YES; POSITIVE DIFFERENTIAL YES; POSITIVE MORPHOLOGY YES; Platelet Count 92 K/mm3 (150-450); RBC Distribution Width CV 21.8 % (11.6-14.6); RBC Distribution Width SD 74.4 fl (35.1-43.9); Red Blood Count 2.54 M/mm3 (4.6-6.2)
[2022-08-10 11:06] LABS: Differential Indicated SCAN CRITERIA MET; White Blood Count 1.2 K/mm3 (4.4-11.0)
[2022-08-10 11:15] LABS: ALB/GLOB Ratio 0.5 RATIO (0.9-2.4); AST(SGOT) 17 U/L (15-37); Alanine Aminotransfer ALT/SGPT 40 U/L (16-61); Albumin, Serum 2.3 g/dL (3.2-5.0); Alkaline Phosphatase 76 U/L (45-117); Anion Gap 8 (5-15); BUN 8 mg/dL (7-18); BUN/Creat Ratio 14.8 RATIO (10-20); Chloride 102 mmol/L (98-107); Creatinine, Serum 0.54 mg/dL (0.70-1.30); EST Glomerular Filtration Rate 163 mL/min (>60); Est Glom Filt Rate - Afr Amer 197 mL/min (>60); Glucose 178 mg/dL (74-106); Potassium 3.4 mmol/L (3.5-5.1); Protein, Total 7.3 g/dL (6.4-8.2); Sodium Level 136 mmol/L (136-145)
[2022-08-10 12:15] LABS: Anisocytosis 1+; Platelet Estimate MOD DEC (ADEQ)
[2022-08-11 14:17] LABS: Pathologist Review Reviewed
== END | disposition home or self-care (01) ==
LOC: LAB 03:45
PROVIDERS: PCP Family Medicine; Referring Provider Internal Medicine Hematology; Visit Provider Internal Medicine Hematology
DX: D46.9 Myelodysplastic syndrome, unspecified (principal)
CPT/HCPCS: 36415; 80053; 85025

== ENCOUNTER → 2022-08-13 | Outpatient (CLI) | payer MEDICARE, SELFPAY ==
[2022-08-13 11:47] LABS: Absolute Lymphocyte Count 0.86 X10^3/uL (0.83-4.51); Absolute Neutrophil Count 0.1 X10^3/uL (2.0-7.7); Basophil# 0.01 X10^3/uL; Basophil% 0.9 % (0-1); Hematocrit 22.3 % (40-54); Lymphocyte # 0.86 X10^3/ul (0.83-4.51); Lymphocyte % 80.4 % (19-41); Mean Corp Hgb Conc 32.3 g/dL (32-36); Mean Corpuscular Hgb 32.9 pg (27.0-32.0); Mean Corpuscular Volume 101.8 fL (80-94); Mean Platelet Vol. 10.6 fl (6.2-12.0); Monocyte% 9.3 % (0-10); NRBC Flagged by Analyzer 0 % (0-5); Neutrophil # 0.09 X10^3/uL (2.7-7.7); Neutrophil % 8.5 % (47-70); POSITIVE COUNT YES; POSITIVE DIFFERENTIAL YES; POSITIVE MORPHOLOGY YES; Platelet Count 80 K/mm3 (150-450); RBC Distribution Width CV 21.6 % (11.6-14.6); RBC Distribution Width SD 75.1 fl (35.1-43.9); Red Blood Count 2.19 M/mm3 (4.6-6.2); White Blood Count 1.1 K/mm3 (4.4-11.0)
[2022-08-13 12:00] LABS: ALB/GLOB Ratio 0.5 RATIO (0.9-2.4); AST(SGOT) 16 U/L (15-37); Alanine Aminotransfer ALT/SGPT 40 U/L (16-61); Albumin, Serum 2.3 g/dL (3.2-5.0); Alkaline Phosphatase 83 U/L (45-117); Anion Gap 6 (5-15); BUN 13 mg/dL (7-18); BUN/Creat Ratio 23.9 RATIO (10-20); Calcium,Total 8.9 mg/dL (8.5-10.1); Chloride 104 mmol/L (98-107); Creatinine, Serum 0.54 mg/dL (0.70-1.30); EST Glomerular Filtration Rate 161 mL/min (>60); Est Glom Filt Rate - Afr Amer 195 mL/min (>60); Globulin 4.8 g/dL (2.2-4.2); Glucose 199 mg/dL (74-106); Potassium 3.7 mmol/L (3.5-5.1); Protein, Total 7.1 g/dL (6.4-8.2); Sodium Level 137 mmol/L (136-145)
[2022-08-13 12:05] LABS: Hemoglobin 7.2 g/dL (13.0-16.5)
[2022-08-13 12:06] LABS: Differential Indicated SCAN CRITERIA MET
[2022-08-13 12:28] LABS: Anisocytosis 2+; Differential Comment SCANNED; Hypochromasia 1+; Macrocytosis 1+; Microcytosis 1+; Platelet Estimate MOD DEC (ADEQ); Reactive Lymphocyte 1+
[2022-08-14 13:27] LABS: Pathologist Review Reviewed
== END | disposition home or self-care (01) ==
LOC: LAB 11:30
PROVIDERS: PCP Family Medicine
DX: D46.9 Myelodysplastic syndrome, unspecified (principal)
CPT/HCPCS: 36415; 80053; 85025; 86850; 86900; 86901; 86920; 86922

== ENCOUNTER 2022-08-14 08:04 | Outpatient (CLI) | payer MEDICARE, SELFPAY ==
[2022-08-14 08:17] VITALS: BP 116/79; PULSE 85; RESP 16; TEMP 36.2; O2SAT 100; BMI 25.8
[2022-08-14] MEDS: Acetaminophen 325 MG Tablet 650 MG PO (08:29)
[2022-08-14] MEDS: DiphenhydrAMINE 25 MG Capsule PO (08:29)
[2022-08-14 09:33] VITALS: BP 114/71; PULSE 81; RESP 16; TEMP 36.2; O2SAT 100
[2022-08-14 10:30] VITALS: BP 116/72; PULSE 76; RESP 16; TEMP 36.2; O2SAT 100
[2022-08-14 11:30] VITALS: BP 123/83; PULSE 76; RESP 16; TEMP 36.2; O2SAT 93
== END 2022-08-14 08:05 | disposition home or self-care (01) ==
LOC: MEDOUTP 08:04
PROVIDERS: PCP Family Medicine; Referring Provider Internal Medicine Hematology; Visit Provider Internal Medicine Hematology
DX: D46.9 Myelodysplastic syndrome, unspecified (principal)
CPT/HCPCS: 36430; 86644; 86850; 86900; 86901; 86920; 86922; J7040; P9040; A4216

== ENCOUNTER → 2022-08-17 | Outpatient (CLI) | payer MEDICARE, SELFPAY ==
[2022-08-17 10:32] LABS: Absolute Lymphocyte Count 0.74 X10^3/uL (0.83-4.51); Absolute Neutrophil Count 0.1 X10^3/uL (2.0-7.7); Hematocrit 25.5 % (40-54); Hemoglobin 8.2 g/dL (13.0-16.5); Lymphocyte # 0.74 X10^3/ul (0.83-4.51); Lymphocyte % 79.6 % (19-41); Mean Corp Hgb Conc 32.2 g/dL (32-36); Mean Corpuscular Hgb 31.5 pg (27.0-32.0); Mean Corpuscular Volume 98.1 fL (80-94); Mean Platelet Vol. 10.3 fl (6.2-12.0); Monocyte# 0.09 X10^3/uL; Monocyte% 9.7 % (0-10); NRBC Flagged by Analyzer 0 % (0-5); Neutrophil % 10.7 % (47-70); POSITIVE COUNT YES; POSITIVE DIFFERENTIAL YES; POSITIVE MORPHOLOGY YES; Platelet Count 51 K/mm3 (150-450); RBC Distribution Width CV 20.5 % (11.6-14.6); RBC Distribution Width SD 69.2 fl (35.1-43.9)
[2022-08-17 10:43] LABS: ALB/GLOB Ratio 0.5 RATIO (0.9-2.4); AST(SGOT) 11 U/L (15-37); Alanine Aminotransfer ALT/SGPT 24 U/L (16-61); Albumin, Serum 2.3 g/dL (3.2-5.0); Alkaline Phosphatase 86 U/L (45-117); Anion Gap 7 (5-15); BUN 12 mg/dL (7-18); BUN/Creat Ratio 20.5 RATIO (10-20); Calcium,Total 8.8 mg/dL (8.5-10.1); Chloride 104 mmol/L (98-107); Creatinine, Serum 0.58 mg/dL (0.70-1.30); Differential Indicated SCAN CRITERIA MET; EST Glomerular Filtration Rate 148 mL/min (>60); Est Glom Filt Rate - Afr Amer 179 mL/min (>60); Globulin 4.6 g/dL (2.2-4.2); Glucose 243 mg/dL (74-106); Potassium 3.8 mmol/L (3.5-5.1); Protein, Total 6.9 g/dL (6.4-8.2); Sodium Level 138 mmol/L (136-145); White Blood Count 0.9 K/mm3 (4.4-11.0)
[2022-08-17 11:36] LABS: Differential Comment SCANNED
[2022-08-17 11:37] LABS: Anisocytosis 2+; Macrocytosis 1+; Microcytosis 1+; Platelet Estimate MKD DEC (ADEQ)
[2022-08-18 15:00] LABS: Pathologist Review Reviewed
== END | disposition home or self-care (01) ==
PROVIDERS: PCP Family Medicine
DX: D46.9 Myelodysplastic syndrome, unspecified (principal); Z71.89 Other specified counseling
CPT/HCPCS: 36415; 80053; 85025

== ENCOUNTER → 2022-08-24 | Outpatient (CLI) | payer MEDICARE, SELFPAY ==
[2022-08-24 10:42] LABS: Absolute Lymphocyte Count 0.71 X10^3/uL (0.83-4.51); Absolute Neutrophil Count 0.1 X10^3/uL (2.0-7.7); Eosinophil# 0.01 X10^3/uL; Eosinophils% 1.1 % (0-5); Hematocrit 27.2 % (40-54); Hemoglobin 8.9 g/dL (13.0-16.5); Lymphocyte # 0.71 X10^3/ul (0.83-4.51); Mean Corp Hgb Conc 32.7 g/dL (32-36); Mean Corpuscular Volume 97.8 fL (80-94); Mean Platelet Vol. 9.5 fl (6.2-12.0); Monocyte# 0.05 X10^3/uL; Monocyte% 5.5 % (0-10); NRBC Flagged by Analyzer 0 % (0-5); Neutrophil # 0.14 X10^3/uL (2.7-7.7); Neutrophil % 15.4 % (47-70); POSITIVE COUNT YES; POSITIVE DIFFERENTIAL YES; POSITIVE MORPHOLOGY YES; RBC Distribution Width SD 67.7 fl (35.1-43.9); Red Blood Count 2.78 M/mm3 (4.6-6.2)
[2022-08-24 10:52] LABS: Differential Indicated SCAN CRITERIA MET; Platelet Count 32 K/mm3 (150-450); White Blood Count 0.9 K/mm3 (4.4-11.0)
[2022-08-24 11:02] LABS: ALB/GLOB Ratio 0.5 RATIO (0.9-2.4); AST(SGOT) 13 U/L (15-37); Alanine Aminotransfer ALT/SGPT 17 U/L (16-61); Albumin, Serum 2.6 g/dL (3.2-5.0); Alkaline Phosphatase 93 U/L (45-117); Anion Gap 6 (5-15); BUN 12 mg/dL (7-18); BUN/Creat Ratio 18.8 RATIO (10-20); Chloride 103 mmol/L (98-107); Creatinine, Serum 0.64 mg/dL (0.70-1.30); EST Glomerular Filtration Rate 134 mL/min (>60); Est Glom Filt Rate - Afr Amer 162 mL/min (>60); Globulin 5.1 g/dL (2.2-4.2); Glucose 247 mg/dL (74-106); Potassium 3.8 mmol/L (3.5-5.1); Protein, Total 7.7 g/dL (6.4-8.2); Sodium Level 136 mmol/L (136-145)
[2022-08-24 11:46] LABS: Anisocytosis 1+; Platelet Estimate MKD DEC (ADEQ)
[2022-08-25 12:15] LABS: Pathologist Review Reviewed
== END | disposition home or self-care (01) ==
LOC: LAB 09:28
PROVIDERS: PCP Family Medicine; Referring Provider Internal Medicine Hematology; Visit Provider Internal Medicine Hematology
DX: D46.9 Myelodysplastic syndrome, unspecified (principal); Z71.89 Other specified counseling
CPT/HCPCS: 36415; 80053; 85025

== ENCOUNTER → 2022-08-27 | Outpatient (CLI) | payer MEDICARE, SELFPAY ==
[2022-08-27 11:26] LABS: Absolute Lymphocyte Count 0.68 X10^3/uL (0.83-4.51); Absolute Neutrophil Count 0.1 X10^3/uL (2.0-7.7); Eosinophil# 0.01 X10^3/uL; Eosinophils% 1.1 % (0-5); Hematocrit 21.6 % (40-54); Hemoglobin 7.1 g/dL (13.0-16.5); Lymphocyte # 0.68 X10^3/ul (0.83-4.51); Lymphocyte % 77.3 % (19-41); Mean Corp Hgb Conc 32.9 g/dL (32-36); Mean Corpuscular Hgb 31.7 pg (27.0-32.0); Mean Corpuscular Volume 96.4 fL (80-94); Mean Platelet Vol. 10.9 fl (6.2-12.0); Monocyte# 0.07 X10^3/uL; NRBC Flagged by Analyzer 0 % (0-5); Neutrophil # 0.12 X10^3/uL (2.7-7.7); Neutrophil % 13.6 % (47-70); POSITIVE COUNT YES; POSITIVE DIFFERENTIAL YES; POSITIVE MORPHOLOGY YES; RBC Distribution Width CV 20.3 % (11.6-14.6); RBC Distribution Width SD 68.6 fl (35.1-43.9); Red Blood Count 2.24 M/mm3 (4.6-6.2)
[2022-08-27 11:37] LABS: ALB/GLOB Ratio 0.5 RATIO (0.9-2.4); AST(SGOT) 17 U/L (15-37); Alanine Aminotransfer ALT/SGPT 22 U/L (16-61); Albumin, Serum 2.4 g/dL (3.2-5.0); Alkaline Phosphatase 84 U/L (45-117); Anion Gap 7 (5-15); BUN 13 mg/dL (7-18); BUN/Creat Ratio 22.1 RATIO (10-20); Calcium,Total 8.8 mg/dL (8.5-10.1); Chloride 105 mmol/L (98-107); Creatinine, Serum 0.59 mg/dL (0.70-1.30); Differential Indicated SCAN CRITERIA MET; EST Glomerular Filtration Rate 147 mL/min (>60); Est Glom Filt Rate - Afr Amer 178 mL/min (>60); Globulin 4.8 g/dL (2.2-4.2); Glucose 231 mg/dL (74-106); Platelet Count 22 K/mm3 (150-450); Potassium 3.8 mmol/L (3.5-5.1); Protein, Total 7.2 g/dL (6.4-8.2); Sodium Level 138 mmol/L (136-145); White Blood Count 0.9 K/mm3 (4.4-11.0)
[2022-08-27 11:45] LABS: Anisocytosis 1+
[2022-08-27 11:46] LABS: Platelet Estimate MKD DEC (ADEQ)
[2022-08-28 15:28] LABS: Pathologist Review Reviewed
== END | disposition home or self-care (01) ==
PROVIDERS: PCP Family Medicine
DX: D46.9 Myelodysplastic syndrome, unspecified (principal); Z71.89 Other specified counseling
CPT/HCPCS: 36415; 80053; 85025; 86850; 86900; 86901; 86920; 86922

== ENCOUNTER 2022-08-28 08:30 | Outpatient (CLI) | payer MEDICARE, SELFPAY ==
[2022-08-28 09:26] VITALS: BP 120/90; PULSE 82; RESP 16; TEMP 36.7; O2SAT 95; BMI 25.4
[2022-08-28 11:15] VITALS: BP 109/69; PULSE 84; RESP 16; TEMP 37.7; O2SAT 98
[2022-08-28 12:05] VITALS: BP 104/75; PULSE 80; RESP 16; TEMP 36.5
== END 2022-08-28 08:31 | disposition home or self-care (01) ==
LOC: MEDOUTP 08:31
PROVIDERS: PCP Family Medicine; Visit Provider Internal Medicine Hematology
DX: D46.9 Myelodysplastic syndrome, unspecified (principal)
CPT/HCPCS: 36430; 86644; 86850; 86900; 86901; 86920; 86922; J7040; P9040; A4216

== ENCOUNTER → 2022-08-31 | Outpatient (CLI) | payer MEDICARE, SELFPAY ==
[2022-08-31 10:33] LABS: Absolute Neutrophil Count 0.1 X10^3/uL (2.0-7.7); Eosinophil# 0.01 X10^3/uL; Hematocrit 26.5 % (40-54); Hemoglobin 8.7 g/dL (13.0-16.5); Mean Corp Hgb Conc 32.8 g/dL (32-36); Mean Corpuscular Hgb 31.3 pg (27.0-32.0); Mean Corpuscular Volume 95.3 fL (80-94); Mean Platelet Vol. 11.9 fl (6.2-12.0); NRBC Flagged by Analyzer 0 % (0-5); POSITIVE COUNT YES; POSITIVE DIFFERENTIAL YES; POSITIVE MORPHOLOGY YES; RBC Distribution Width CV 19.4 % (11.6-14.6); RBC Distribution Width SD 65.1 fl (35.1-43.9); Red Blood Count 2.78 M/mm3 (4.6-6.2)
[2022-08-31 10:46] LABS: Differential Indicated SCAN CRITERIA MET
[2022-08-31 10:50] LABS: Platelet Count 16 K/mm3 (150-450)
[2022-08-31 10:58] LABS: ALB/GLOB Ratio 0.5 RATIO (0.9-2.4); AST(SGOT) 16 U/L (15-37); Alanine Aminotransfer ALT/SGPT 23 U/L (16-61); Albumin, Serum 2.4 g/dL (3.2-5.0); Alkaline Phosphatase 88 U/L (45-117); Anion Gap 5 (5-15); BUN 9 mg/dL (7-18); BUN/Creat Ratio 14.5 RATIO (10-20); Calcium,Total 9.2 mg/dL (8.5-10.1); Chloride 104 mmol/L (98-107); Creatinine, Serum 0.62 mg/dL (0.70-1.30); EST Glomerular Filtration Rate 138 mL/min (>60); Est Glom Filt Rate - Afr Amer 167 mL/min (>60); Glucose 178 mg/dL (74-106); Protein, Total 7.4 g/dL (6.4-8.2); Sodium Level 136 mmol/L (136-145)
[2022-08-31 11:06] LABS: Scan Smear per Review Criteria MANUAL DIFF
[2022-08-31 11:12] LABS: Blast 4 % (0-0); Eosinophil 1 % (0-5); Lymphocyte 82 % (19-41); Monocyte 2 % (0-10); Neutrophil-Band 1 % (0-5); Neutrophil-Segmented 10 % (47-70); Total Cells Counted 100 (MANUAL DIFF)
[2022-08-31 11:13] LABS: Neutrophil # 0.11 X10^3/uL (2.7-7.7)
[2022-08-31 11:14] LABS: Platelet Estimate MKD DEC (ADEQ)
[2022-08-31 11:15] LABS: Anisocytosis 2+; Macrocytosis 1+; Microcytosis 1+
[2022-08-31 11:16] LABS: Ovalocyte RARE
[2022-09-02 09:50] LABS: Pathologist Review Reviewed
== END | disposition home or self-care (01) ==
LOC: LAB 09:17
PROVIDERS: PCP Family Medicine; Referring Provider Internal Medicine Hematology; Visit Provider Internal Medicine Hematology
DX: D46.9 Myelodysplastic syndrome, unspecified (principal)
CPT/HCPCS: 36415; 80053; 85025; 86900; 86901

== ENCOUNTER 2022-09-01 07:51 | Outpatient (CLI) | payer MEDICARE, SELFPAY ==
[2022-09-01 08:00] VITALS: BP 117/83; PULSE 77; RESP 16; TEMP 36.3; O2SAT 100
[2022-09-01 08:27] VITALS: BP 123/71; PULSE 76; RESP 16; TEMP 36.6; O2SAT 99
[2022-09-01 08:49] VITALS: BP 124/73; PULSE 74; RESP 16; TEMP 36.4; O2SAT 95
== END 2022-09-01 07:52 | disposition home or self-care (01) ==
LOC: MEDOUTP 07:51
PROVIDERS: PCP Family Medicine; Referring Provider Internal Medicine Hematology; Visit Provider Internal Medicine Hematology
DX: D46.9 Myelodysplastic syndrome, unspecified (principal)
CPT/HCPCS: 36430; 86900; 86901; 86965; P9035

== ENCOUNTER 2022-09-04 07:48 | Outpatient (CLI) | payer MEDICARE, SELFPAY ==
[2022-09-04 08:01] VITALS: BP 125/75; PULSE 88; RESP 16; TEMP 36.5; O2SAT 99; BMI 25.4
[2022-09-04 08:41] VITALS: BP 127/82; PULSE 84; RESP 16; TEMP 36.6; O2SAT 100
[2022-09-04 09:05] VITALS: BP 122/79; PULSE 83; RESP 16; TEMP 36.6; O2SAT 100
== END 2022-09-04 07:49 | disposition home or self-care (01) ==
LOC: MEDOUTP 07:49
PROVIDERS: PCP Family Medicine; Referring Provider Internal Medicine Hematology; Visit Provider Internal Medicine Hematology
DX: D46.9 Myelodysplastic syndrome, unspecified (principal)
CPT/HCPCS: 36415; 36430; 36591; 86900; 86901; 86965; J7040; P9035; A4216

== ENCOUNTER 2022-09-07 09:37 | Outpatient (CLI) | payer MEDICARE, SELFPAY ==
[2022-09-07 10:55] LABS: Absolute Lymphocyte Count 0.71 X10^3/uL (0.83-4.51); Absolute Neutrophil Count 0.1 X10^3/uL (2.0-7.7); Eosinophil# 0.01 X10^3/uL; Eosinophils% 1.1 % (0-5); Hemoglobin 7.2 g/dL (13.0-16.5); Lymphocyte # 0.71 X10^3/ul (0.83-4.51); Lymphocyte % 78.9 % (19-41); Mean Corp Hgb Conc 31.3 g/dL (32-36); Mean Corpuscular Hgb 30.5 pg (27.0-32.0); Mean Corpuscular Volume 97.5 fL (80-94); Mean Platelet Vol. 9.1 fl (6.2-12.0); Monocyte# 0.09 X10^3/uL; NRBC Flagged by Analyzer 0 % (0-5); Neutrophil # 0.09 X10^3/uL (2.7-7.7); POSITIVE COUNT YES; POSITIVE DIFFERENTIAL YES; POSITIVE MORPHOLOGY YES; Platelet Count 35 K/mm3 (150-450); RBC Distribution Width CV 19.2 % (11.6-14.6); RBC Distribution Width SD 65.9 fl (35.1-43.9); Red Blood Count 2.36 M/mm3 (4.6-6.2); White Blood Count 0.9 K/mm3 (4.4-11.0)
[2022-09-07 10:57] LABS: Differential Indicated SCAN CRITERIA MET
[2022-09-07 11:31] LABS: ALB/GLOB Ratio 0.5 RATIO (0.9-2.4); AST(SGOT) 16 U/L (15-37); Alanine Aminotransfer ALT/SGPT 22 U/L (16-61); Albumin, Serum 2.5 g/dL (3.2-5.0); Alkaline Phosphatase 96 U/L (45-117); Anion Gap 3 (5-15); BUN 11 mg/dL (7-18); BUN/Creat Ratio 18.5 RATIO (10-20); Calcium,Total 8.8 mg/dL (8.5-10.1); Chloride 107 mmol/L (98-107); EST Glomerular Filtration Rate 145 mL/min (>60); Est Glom Filt Rate - Afr Amer 175 mL/min (>60); Globulin 5.1 g/dL (2.2-4.2); Glucose 174 mg/dL (74-106); Potassium 3.8 mmol/L (3.5-5.1); Protein, Total 7.6 g/dL (6.4-8.2); Sodium Level 137 mmol/L (136-145)
[2022-09-07 12:43] VITALS: BP 128/81; PULSE 82; RESP 16; TEMP 36.6; O2SAT 100
[2022-09-07 13:14] VITALS: BP 119/78; PULSE 79; RESP 16; TEMP 36.4; O2SAT 100
[2022-09-07 14:20] VITALS: BP 126/76; PULSE 75; RESP 16; TEMP 36.3; O2SAT 100
[2022-09-09 10:16] LABS: Pathologist Review Reviewed
== END 2022-09-07 09:38 | disposition home or self-care (01) ==
LOC: LAB 11:15 → MEDOUTP 12:27
PROVIDERS: PCP Family Medicine; Referring Provider Internal Medicine Hematology; Visit Provider Internal Medicine Hematology
DX: D46.9 Myelodysplastic syndrome, unspecified (principal)
CPT/HCPCS: 36415; 36430; 80053; 85025; 86644; 86850; 86900; 86901; 86920; 86922; J7040; P9040; A4216

== ENCOUNTER → 2022-09-10 | Outpatient (CLI) | payer MEDICARE, SELFPAY ==
[2022-09-10 11:23] LABS: Absolute Lymphocyte Count 0.62 X10^3/uL (0.83-4.51); Absolute Neutrophil Count 0.1 X10^3/uL (2.0-7.7); Hematocrit 25.9 % (40-54); Hemoglobin 8.9 g/dL (13.0-16.5); Lymphocyte # 0.62 X10^3/ul (0.83-4.51); Lymphocyte % 84.9 % (19-41); Mean Corp Hgb Conc 34.4 g/dL (32-36); Mean Corpuscular Volume 93.2 fL (80-94); Mean Platelet Vol. 8.3 fl (6.2-12.0); Monocyte# 0.04 X10^3/uL; Monocyte% 5.5 % (0-10); NRBC Flagged by Analyzer 0 % (0-5); Neutrophil # 0.06 X10^3/uL (2.7-7.7); Neutrophil % 8.2 % (47-70); POSITIVE COUNT YES; POSITIVE DIFFERENTIAL YES; POSITIVE MORPHOLOGY YES; RBC Distribution Width CV 17.7 % (11.6-14.6); RBC Distribution Width SD 58.4 fl (35.1-43.9); Red Blood Count 2.78 M/mm3 (4.6-6.2)
[2022-09-10 11:42] LABS: Platelet Count 16 K/mm3 (150-450)
[2022-09-10 11:43] LABS: Differential Indicated SCAN CRITERIA MET; White Blood Count 0.7 K/mm3 (4.4-11.0)
[2022-09-10 12:05] LABS: Differential Comment SCANNED
[2022-09-10 12:37] LABS: ALB/GLOB Ratio 0.5 RATIO (0.9-2.4); AST(SGOT) 14 U/L (15-37); Alanine Aminotransfer ALT/SGPT 19 U/L (16-61); Albumin, Serum 2.5 g/dL (3.2-5.0); Alkaline Phosphatase 100 U/L (45-117); Anion Gap 7 (5-15); BUN 12 mg/dL (7-18); BUN/Creat Ratio 19.5 RATIO (10-20); Calcium,Total 9.1 mg/dL (8.5-10.1); Chloride 103 mmol/L (98-107); Creatinine, Serum 0.62 mg/dL (0.70-1.30); EST Glomerular Filtration Rate 140 mL/min (>60); Est Glom Filt Rate - Afr Amer 169 mL/min (>60); Globulin 5.1 g/dL (2.2-4.2); Glucose 183 mg/dL (74-106); Potassium 3.6 mmol/L (3.5-5.1); Protein, Total 7.6 g/dL (6.4-8.2); Sodium Level 136 mmol/L (136-145)
[2022-09-14 12:53] LABS: Pathologist Review Reviewed
== END | disposition home or self-care (01) ==
LOC: LAB 09:36
PROVIDERS: PCP Family Medicine; Referring Provider Internal Medicine Hematology; Visit Provider Internal Medicine Hematology
DX: D46.9 Myelodysplastic syndrome, unspecified (principal); Z71.89 Other specified counseling
CPT/HCPCS: 36415; 80053; 85025

== ENCOUNTER 2022-09-11 07:50 | Outpatient (CLI) | payer MEDICARE, SELFPAY ==
[2022-09-11 08:30] VITALS: BP 118/99; PULSE 84; RESP 16; TEMP 36.6; O2SAT 100; BMI 25.0
[2022-09-11 08:54] VITALS: BP 126/80; PULSE 80; RESP 16; TEMP 36.5; O2SAT 100
[2022-09-11 09:11] VITALS: BP 127/86; PULSE 78; RESP 16; TEMP 36.4; O2SAT 100
== END 2022-09-11 07:51 | disposition home or self-care (01) ==
LOC: MEDOUTP 07:50
PROVIDERS: PCP Family Medicine; Referring Provider Internal Medicine Hematology; Visit Provider Internal Medicine Hematology
DX: D46.9 Myelodysplastic syndrome, unspecified (principal)
CPT/HCPCS: 36430; 86900; 86901; 86965; J7040; P9035; A4216

== ENCOUNTER → 2022-09-14 | Outpatient (CLI) | payer MEDICARE, SELFPAY ==
[2022-09-14 10:42] LABS: Absolute Neutrophil Count 0.1 X10^3/uL (2.0-7.7); Hematocrit 22.2 % (40-54); Hemoglobin 7.1 g/dL (13.0-16.5); Lymphocyte % 82.4 % (19-41); Mean Corpuscular Hgb 30.7 pg (27.0-32.0); Mean Corpuscular Volume 96.1 fL (80-94); Mean Platelet Vol. 10.7 fl (6.2-12.0); Monocyte# 0.08 X10^3/uL; Monocyte% 9.4 % (0-10); NRBC Flagged by Analyzer 0 % (0-5); Neutrophil # 0.07 X10^3/uL (2.7-7.7); Neutrophil % 8.2 % (47-70); POSITIVE COUNT YES; POSITIVE DIFFERENTIAL YES; POSITIVE MORPHOLOGY YES; RBC Distribution Width CV 17.4 % (11.6-14.6); Red Blood Count 2.31 M/mm3 (4.6-6.2)
[2022-09-14 10:54] LABS: Differential Indicated SCAN CRITERIA MET; Platelet Count 13 K/mm3 (150-450); White Blood Count 0.9 K/mm3 (4.4-11.0)
[2022-09-14 11:00] LABS: ALB/GLOB Ratio 0.5 RATIO (0.9-2.4); AST(SGOT) 18 U/L (15-37); Alanine Aminotransfer ALT/SGPT 18 U/L (16-61); Albumin, Serum 2.4 g/dL (3.2-5.0); Alkaline Phosphatase 100 U/L (45-117); Anion Gap 5 (5-15); BUN 10 mg/dL (7-18); BUN/Creat Ratio 16.9 RATIO (10-20); Calcium,Total 8.6 mg/dL (8.5-10.1); Chloride 107 mmol/L (98-107); Creatinine, Serum 0.59 mg/dL (0.70-1.30); EST Glomerular Filtration Rate 146 mL/min (>60); Est Glom Filt Rate - Afr Amer 177 mL/min (>60); Glucose 170 mg/dL (74-106); Potassium 3.8 mmol/L (3.5-5.1); Protein, Total 7.4 g/dL (6.4-8.2); Sodium Level 139 mmol/L (136-145)
[2022-09-14 12:38] LABS: Platelet Estimate MKD DEC (ADEQ)
[2022-09-15 08:14] LABS: Pathologist Review Reviewed
== END | disposition home or self-care (01) ==
LOC: LAB 08:53
PROVIDERS: PCP Family Medicine
DX: D46.9 Myelodysplastic syndrome, unspecified (principal)
CPT/HCPCS: 36415; 80053; 85025; 86850; 86900; 86901; 86920; 86922

== ENCOUNTER 2022-09-15 08:01 | Outpatient (CLI) | payer MEDICARE, SELFPAY ==
[2022-09-15 08:29] VITALS: BP 118/64; PULSE 77; RESP 16; TEMP 36.4; O2SAT 100; BMI 25.8
[2022-09-15 08:43] VITALS: BP 105/73; PULSE 77; RESP 16; TEMP 36.4; O2SAT 100
[2022-09-15 09:43] VITALS: BP 113/69; PULSE 70; RESP 16; TEMP 36.2; O2SAT 98
[2022-09-15 10:36] VITALS: BP 101/65; PULSE 66; RESP 16; TEMP 36.2
[2022-09-15 10:58] VITALS: BP 116/85; PULSE 67; RESP 16; TEMP 36.2; O2SAT 100
== END 2022-09-15 08:02 | disposition home or self-care (01) ==
LOC: MEDOUTP 08:01
PROVIDERS: PCP Family Medicine; Referring Provider Internal Medicine Hematology; Visit Provider Internal Medicine Hematology
DX: D46.9 Myelodysplastic syndrome, unspecified (principal)
CPT/HCPCS: 36430; 86644; 86850; 86900; 86901; 86920; 86922; 86965; J7040; P9035; P9040

== ENCOUNTER → 2022-09-17 | Outpatient (CLI) | payer MEDICARE, SELFPAY ==
[2022-09-17 11:26] LABS: Absolute Lymphocyte Count 0.73 X10^3/uL (0.83-4.51); Absolute Neutrophil Count 0.1 X10^3/uL (2.0-7.7); Hematocrit 25.1 % (40-54); Hemoglobin 8.2 g/dL (13.0-16.5); Lymphocyte # 0.73 X10^3/ul (0.83-4.51); Mean Corp Hgb Conc 32.7 g/dL (32-36); Mean Corpuscular Hgb 30.8 pg (27.0-32.0); Mean Corpuscular Volume 94.4 fL (80-94); Mean Platelet Vol. 11.8 fl (6.2-12.0); Monocyte# 0.05 X10^3/uL; NRBC Flagged by Analyzer 0 % (0-5); Neutrophil # 0.05 X10^3/uL (2.7-7.7); POSITIVE COUNT YES; POSITIVE DIFFERENTIAL YES; POSITIVE MORPHOLOGY YES; RBC Distribution Width CV 17.2 % (11.6-14.6); RBC Distribution Width SD 56.8 fl (35.1-43.9); Red Blood Count 2.66 M/mm3 (4.6-6.2)
[2022-09-17 11:32] LABS: Differential Indicated SCAN CRITERIA MET; Platelet Count 24 K/mm3 (150-450); White Blood Count 0.8 K/mm3 (4.4-11.0)
[2022-09-17 11:42] LABS: ALB/GLOB Ratio 0.5 RATIO (0.9-2.4); AST(SGOT) 13 U/L (15-37); Alanine Aminotransfer ALT/SGPT 16 U/L (16-61); Albumin, Serum 2.5 g/dL (3.2-5.0); Alkaline Phosphatase 110 U/L (45-117); Anion Gap 7 (5-15); BUN 10 mg/dL (7-18); BUN/Creat Ratio 16.3 RATIO (10-20); Calcium,Total 9.1 mg/dL (8.5-10.1); Chloride 105 mmol/L (98-107); Creatinine, Serum 0.61 mg/dL (0.70-1.30); EST Glomerular Filtration Rate 140 mL/min (>60); Est Glom Filt Rate - Afr Amer 170 mL/min (>60); Globulin 5.2 g/dL (2.2-4.2); Glucose 179 mg/dL (74-106); Potassium 3.8 mmol/L (3.5-5.1); Protein, Total 7.7 g/dL (6.4-8.2); Sodium Level 138 mmol/L (136-145)
[2022-09-17 11:50] LABS: Platelet Estimate MKD DEC (ADEQ)
[2022-09-18 11:00] LABS: Pathologist Review Reviewed
== END | disposition home or self-care (01) ==
LOC: LAB 08:13
PROVIDERS: PCP Family Medicine; Referring Provider Internal Medicine Hematology; Visit Provider Internal Medicine Hematology
DX: D46.9 Myelodysplastic syndrome, unspecified (principal); Z71.89 Other specified counseling
CPT/HCPCS: 36415; 80053; 85025

== ENCOUNTER → 2022-09-21 | Outpatient (CLI) | payer MEDICARE, SELFPAY ==
[2022-09-21 10:27] LABS: Absolute Lymphocyte Count 0.89 X10^3/uL (0.83-4.51); Absolute Neutrophil Count 0.1 X10^3/uL (2.0-7.7); Eosinophil# 0.01 X10^3/uL; Hematocrit 24.5 % (40-54); Lymphocyte # 0.89 X10^3/ul (0.83-4.51); Lymphocyte % 84.8 % (19-41); Mean Corp Hgb Conc 32.7 g/dL (32-36); Mean Corpuscular Hgb 30.7 pg (27.0-32.0); Mean Corpuscular Volume 93.9 fL (80-94); Mean Platelet Vol. 9.4 fl (6.2-12.0); Monocyte# 0.08 X10^3/uL; Monocyte% 7.6 % (0-10); NRBC Flagged by Analyzer 0 % (0-5); Neutrophil # 0.07 X10^3/uL (2.7-7.7); Neutrophil % 6.6 % (47-70); POSITIVE COUNT YES; POSITIVE DIFFERENTIAL YES; POSITIVE MORPHOLOGY YES; RBC Distribution Width CV 16.6 % (11.6-14.6); RBC Distribution Width SD 53.8 fl (35.1-43.9); Red Blood Count 2.61 M/mm3 (4.6-6.2)
[2022-09-21 10:37] LABS: White Blood Count 1.1 K/mm3 (4.4-11.0)
[2022-09-21 10:38] LABS: Differential Indicated SCAN CRITERIA MET; Platelet Count 15 K/mm3 (150-450)
[2022-09-21 10:50] LABS: Differential Comment SCANNED
[2022-09-21 10:53] LABS: ALB/GLOB Ratio 0.5 RATIO (0.9-2.4); AST(SGOT) 13 U/L (15-37); Alanine Aminotransfer ALT/SGPT 18 U/L (16-61); Albumin, Serum 2.7 g/dL (3.2-5.0); Alkaline Phosphatase 121 U/L (45-117); Anion Gap 5 (5-15); BUN 13 mg/dL (7-18); BUN/Creat Ratio 23.1 RATIO (10-20); Calcium,Total 8.9 mg/dL (8.5-10.1); Chloride 105 mmol/L (98-107); Creatinine, Serum 0.56 mg/dL (0.70-1.30); EST Glomerular Filtration Rate 155 mL/min (>60); Est Glom Filt Rate - Afr Amer 187 mL/min (>60); Globulin 5.3 g/dL (2.2-4.2); Glucose 132 mg/dL (74-106); Potassium 3.8 mmol/L (3.5-5.1); Sodium Level 136 mmol/L (136-145)
[2022-09-23 09:41] LABS: Pathologist Review Reviewed
== END | disposition home or self-care (01) ==
LOC: LAB 08:43
PROVIDERS: PCP Family Medicine; Referring Provider Internal Medicine Hematology; Visit Provider Internal Medicine Hematology
DX: D46.9 Myelodysplastic syndrome, unspecified (principal); Z71.89 Other specified counseling
CPT/HCPCS: 36415; 80053; 85025

== ENCOUNTER 2022-09-22 10:32 | Outpatient (CLI) | payer MEDICARE, SELFPAY ==
[2022-09-22 10:56] VITALS: BP 155/63; PULSE 84; RESP 16; TEMP 36.9; O2SAT 100
[2022-09-22 11:49] VITALS: BP 132/76; PULSE 76; RESP 16; TEMP 36.6
[2022-09-22 12:09] VITALS: BP 132/65; PULSE 65; RESP 16; TEMP 36.6; O2SAT 99
[2022-09-22 12:40] VITALS: BP 131/80; PULSE 78; RESP 16; TEMP 36.6; O2SAT 99
[2022-09-22 13:40] VITALS: BP 124/77; PULSE 76; RESP 16; TEMP 36.6
== END 2022-09-22 10:33 | disposition home or self-care (01) ==
LOC: MEDOUTP 10:33
PROVIDERS: PCP Family Medicine; Referring Provider Internal Medicine Hematology; Visit Provider Internal Medicine Hematology
DX: D46.9 Myelodysplastic syndrome, unspecified (principal)
CPT/HCPCS: 36430; 86644; 86850; 86900; 86901; 86920; 86922; 86965; P9035; P9040

== ENCOUNTER → 2022-09-24 | Outpatient (CLI) | payer MEDICARE, SELFPAY ==
[2022-09-24 11:06] LABS: Absolute Lymphocyte Count 0.77 X10^3/uL (0.83-4.51); Eosinophil# 0.01 X10^3/uL; Eosinophils% 1.1 % (0-5); Hematocrit 26.1 % (40-54); Hemoglobin 8.8 g/dL (13.0-16.5); Lymphocyte # 0.77 X10^3/ul (0.83-4.51); Lymphocyte % 84.6 % (19-41); Mean Corp Hgb Conc 33.7 g/dL (32-36); Mean Corpuscular Hgb 30.2 pg (27.0-32.0); Mean Corpuscular Volume 89.7 fL (80-94); Mean Platelet Vol. 9.6 fl (6.2-12.0); Monocyte# 0.08 X10^3/uL; Monocyte% 8.8 % (0-10); NRBC Flagged by Analyzer 0 % (0-5); Neutrophil # 0.04 X10^3/uL (2.7-7.7); Neutrophil % 4.4 % (47-70); POSITIVE COUNT YES; POSITIVE DIFFERENTIAL YES; POSITIVE MORPHOLOGY YES; RBC Distribution Width CV 17.2 % (11.6-14.6); RBC Distribution Width SD 51.8 fl (35.1-43.9); Red Blood Count 2.91 M/mm3 (4.6-6.2)
[2022-09-24 11:21] LABS: Differential Indicated SCAN CRITERIA MET; Platelet Count 27 K/mm3 (150-450); White Blood Count 0.9 K/mm3 (4.4-11.0)
[2022-09-24 11:45] LABS: ALB/GLOB Ratio 0.5 RATIO (0.9-2.4); AST(SGOT) 13 U/L (15-37); Alanine Aminotransfer ALT/SGPT 16 U/L (16-61); Albumin, Serum 2.7 g/dL (3.2-5.0); Alkaline Phosphatase 101 U/L (45-117); Anion Gap 8 (5-15); BUN 11 mg/dL (7-18); BUN/Creat Ratio 22.5 RATIO (10-20); Calcium,Total 8.6 mg/dL (8.5-10.1); Chloride 107 mmol/L (98-107); Creatinine, Serum 0.49 mg/dL (0.70-1.30); EST Glomerular Filtration Rate 182 mL/min (>60); Est Glom Filt Rate - Afr Amer 220 mL/min (>60); Globulin 5.1 g/dL (2.2-4.2); Glucose 178 mg/dL (74-106); Potassium 3.4 mmol/L (3.5-5.1); Protein, Total 7.8 g/dL (6.4-8.2); Sodium Level 138 mmol/L (136-145)
[2022-09-24 11:51] LABS: Platelet Estimate MKD DEC (ADEQ)
[2022-09-28 13:51] LABS: Pathologist Review Reviewed
== END | disposition home or self-care (01) ==
LOC: LAB 08:10
PROVIDERS: PCP Family Medicine; Referring Provider Internal Medicine Hematology; Visit Provider Internal Medicine Hematology
DX: D46.9 Myelodysplastic syndrome, unspecified (principal); Z71.89 Other specified counseling
CPT/HCPCS: 36415; 80053; 85025

== ENCOUNTER → 2022-09-28 | Outpatient (CLI) | payer MEDICARE, SELFPAY ==
[2022-09-28 10:29] LABS: Absolute Lymphocyte Count 0.69 X10^3/uL (0.83-4.51); Eosinophil# 0.01 X10^3/uL; Eosinophils% 1.2 % (0-5); Hemoglobin 7.4 g/dL (13.0-16.5); Lymphocyte # 0.69 X10^3/ul (0.83-4.51); Lymphocyte % 85.2 % (19-41); Mean Corp Hgb Conc 32.2 g/dL (32-36); Mean Corpuscular Hgb 29.5 pg (27.0-32.0); Mean Corpuscular Volume 91.6 fL (80-94); Monocyte# 0.07 X10^3/uL; Monocyte% 8.6 % (0-10); NRBC Flagged by Analyzer 0 % (0-5); Neutrophil # 0.04 X10^3/uL (2.7-7.7); POSITIVE COUNT YES; POSITIVE DIFFERENTIAL YES; POSITIVE MORPHOLOGY YES; RBC Distribution Width CV 16.4 % (11.6-14.6); RBC Distribution Width SD 52.5 fl (35.1-43.9); Red Blood Count 2.51 M/mm3 (4.6-6.2)
[2022-09-28 10:43] LABS: ALB/GLOB Ratio 0.5 RATIO (0.9-2.4); AST(SGOT) 15 U/L (15-37); Alanine Aminotransfer ALT/SGPT 20 U/L (16-61); Albumin, Serum 2.4 g/dL (3.2-5.0); Alkaline Phosphatase 108 U/L (45-117); Anion Gap 5 (5-15); BUN 10 mg/dL (7-18); BUN/Creat Ratio 17.6 RATIO (10-20); Chloride 106 mmol/L (98-107); Creatinine, Serum 0.57 mg/dL (0.70-1.30); EST Glomerular Filtration Rate 153 mL/min (>60); Est Glom Filt Rate - Afr Amer 185 mL/min (>60); Globulin 4.9 g/dL (2.2-4.2); Glucose 168 mg/dL (74-106); Protein, Total 7.3 g/dL (6.4-8.2); Sodium Level 137 mmol/L (136-145)
[2022-09-28 10:51] LABS: Differential Indicated SCAN CRITERIA MET; Platelet Count 13 K/mm3 (150-450); White Blood Count 0.8 K/mm3 (4.4-11.0)
[2022-09-28 11:07] LABS: Platelet Estimate MKD DEC (ADEQ)
[2022-09-29 10:15] LABS: Pathologist Review Reviewed
== END | disposition home or self-care (01) ==
LOC: LAB 09:07
PROVIDERS: PCP Family Medicine
DX: D46.9 Myelodysplastic syndrome, unspecified (principal); Z71.89 Other specified counseling
CPT/HCPCS: 36415; 80053; 85025; 86850; 86900; 86901; 86920; 86922

== ENCOUNTER 2022-09-29 10:07 | Outpatient (CLI) | payer MEDICARE, SELFPAY ==
[2022-09-29 10:24] VITALS: BP 140/91; PULSE 88; RESP 16; TEMP 36.7; O2SAT 99
[2022-09-29] MEDS: Acetaminophen 325 MG Tablet 650 MG PO (10:32)
[2022-09-29] MEDS: DiphenhydrAMINE 25 MG Capsule PO (10:32)
[2022-09-29 11:41] VITALS: BP 130/86; PULSE 72; RESP 16; TEMP 36.9; O2SAT 100
[2022-09-29 12:41] VITALS: BP 121/82; PULSE 73; RESP 16; TEMP 36.6; O2SAT 100
[2022-09-29 13:41] VITALS: PULSE 74; RESP 16; TEMP 36.7; O2SAT 100
[2022-09-29 14:01] VITALS: BP 130/81; PULSE 74; RESP 16; TEMP 36.7; O2SAT 100
[2022-09-29 14:31] VITALS: BP 134/69; PULSE 69; RESP 16
== END 2022-09-29 10:08 | disposition home or self-care (01) ==
LOC: MEDOUTP 10:08
PROVIDERS: PCP Family Medicine; Referring Provider Internal Medicine Hematology; Visit Provider Internal Medicine Hematology
DX: D46.9 Myelodysplastic syndrome, unspecified (principal)
CPT/HCPCS: 36430; 86850; 86900; 86901; 86920; 86922; 86965; J7040; P9035; P9040; A4216

== ENCOUNTER → 2022-10-01 | Outpatient (CLI) | payer MEDICARE, SELFPAY ==
[2022-10-01 10:51] LABS: Absolute Lymphocyte Count 0.75 X10^3/uL (0.83-4.51); Basophil# 0.01 X10^3/uL; Basophil% 1.1 % (0-1); Eosinophil# 0.01 X10^3/uL; Eosinophils% 1.1 % (0-5); Hematocrit 26.9 % (40-54); Hemoglobin 8.9 g/dL (13.0-16.5); Lymphocyte # 0.75 X10^3/ul (0.83-4.51); Lymphocyte % 86.2 % (19-41); Mean Corp Hgb Conc 33.1 g/dL (32-36); Mean Corpuscular Hgb 30.1 pg (27.0-32.0); Mean Corpuscular Volume 90.9 fL (80-94); Mean Platelet Vol. 9.8 fl (6.2-12.0); Monocyte# 0.07 X10^3/uL; NRBC Flagged by Analyzer 0 % (0-5); Neutrophil # 0.03 X10^3/uL (2.7-7.7); Neutrophil % 3.6 % (47-70); POSITIVE COUNT YES; POSITIVE DIFFERENTIAL YES; POSITIVE MORPHOLOGY YES; Platelet Count 19 K/mm3 (150-450); RBC Distribution Width CV 15.9 % (11.6-14.6); RBC Distribution Width SD 49.3 fl (35.1-43.9); Red Blood Count 2.96 M/mm3 (4.6-6.2); White Blood Count 0.9 K/mm3 (4.4-11.0)
[2022-10-01 11:05] LABS: Differential Indicated SCAN CRITERIA MET
[2022-10-01 11:15] LABS: ALB/GLOB Ratio 0.5 RATIO (0.9-2.4); AST(SGOT) 16 U/L (15-37); Alanine Aminotransfer ALT/SGPT 19 U/L (16-61); Albumin, Serum 2.5 g/dL (3.2-5.0); Alkaline Phosphatase 108 U/L (45-117); Anion Gap 8 (5-15); BUN 10 mg/dL (7-18); BUN/Creat Ratio 15.6 RATIO (10-20); Calcium,Total 8.8 mg/dL (8.5-10.1); Chloride 104 mmol/L (98-107); Creatinine, Serum 0.64 mg/dL (0.70-1.30); EST Glomerular Filtration Rate 133 mL/min (>60); Est Glom Filt Rate - Afr Amer 160 mL/min (>60); Glucose 174 mg/dL (74-106); Potassium 3.7 mmol/L (3.5-5.1); Protein, Total 7.5 g/dL (6.4-8.2); Sodium Level 136 mmol/L (136-145)
[2022-10-02 09:56] LABS: Pathologist Review Reviewed
== END | disposition home or self-care (01) ==
LOC: LAB 08:11
PROVIDERS: PCP Family Medicine; Referring Provider Internal Medicine Hematology; Visit Provider Internal Medicine Hematology
DX: D46.9 Myelodysplastic syndrome, unspecified (principal); Z71.89 Other specified counseling
CPT/HCPCS: 36415; 80053; 85025; 86900; 86901

== ENCOUNTER 2022-10-02 07:56 | Outpatient (CLI) | payer MEDICARE, SELFPAY ==
[2022-10-02 08:12] VITALS: BP 122/76; PULSE 85; RESP 16; TEMP 36.7; O2SAT 99
[2022-10-02 08:41] VITALS: BP 119/74; PULSE 78; RESP 16; TEMP 36.7; O2SAT 98
[2022-10-02 09:04] VITALS: BP 138/80; PULSE 76; RESP 16; TEMP 36.6; O2SAT 98
== END 2022-10-02 07:57 | disposition home or self-care (01) ==
LOC: MEDOUTP 07:56
PROVIDERS: PCP Family Medicine; Visit Provider Internal Medicine Hematology
DX: D46.9 Myelodysplastic syndrome, unspecified (principal)
CPT/HCPCS: 36430; 86900; 86901; 86965; J7040; P9035; A4216

== ENCOUNTER → 2022-10-05 | Outpatient (CLI) | payer MEDICARE, SELFPAY ==
[2022-10-05 10:38] LABS: Absolute Lymphocyte Count 0.64 X10^3/uL (0.83-4.51); Hematocrit 24.9 % (40-54); Lymphocyte # 0.64 X10^3/ul (0.83-4.51); Lymphocyte % 83.1 % (19-41); Mean Corp Hgb Conc 32.1 g/dL (32-36); Mean Corpuscular Volume 93.3 fL (80-94); Monocyte# 0.08 X10^3/uL; Monocyte% 10.4 % (0-10); NRBC Flagged by Analyzer 0 % (0-5); Neutrophil # 0.04 X10^3/uL (2.7-7.7); Neutrophil % 5.2 % (47-70); POSITIVE COUNT YES; POSITIVE DIFFERENTIAL YES; POSITIVE MORPHOLOGY YES; RBC Distribution Width CV 15.9 % (11.6-14.6); RBC Distribution Width SD 50.7 fl (35.1-43.9); Red Blood Count 2.67 M/mm3 (4.6-6.2)
[2022-10-05 10:53] LABS: Platelet Count 18 K/mm3 (150-450); White Blood Count 0.8 K/mm3 (4.4-11.0)
[2022-10-05 10:54] LABS: Differential Indicated SCAN CRITERIA MET
[2022-10-05 11:06] LABS: ALB/GLOB Ratio 0.5 RATIO (0.9-2.4); AST(SGOT) 13 U/L (15-37); Alanine Aminotransfer ALT/SGPT 18 U/L (16-61); Albumin, Serum 2.5 g/dL (3.2-5.0); Alkaline Phosphatase 101 U/L (45-117); Anion Gap 4 (5-15); BUN 10 mg/dL (7-18); BUN/Creat Ratio 15.3 RATIO (10-20); Calcium,Total 8.8 mg/dL (8.5-10.1); Chloride 106 mmol/L (98-107); Creatinine, Serum 0.65 mg/dL (0.70-1.30); EST Glomerular Filtration Rate 130 mL/min (>60); Est Glom Filt Rate - Afr Amer 158 mL/min (>60); Glucose 182 mg/dL (74-106); Potassium 4.1 mmol/L (3.5-5.1); Protein, Total 7.5 g/dL (6.4-8.2); Sodium Level 136 mmol/L (136-145)
[2022-10-05 11:20] LABS: Differential Comment SCANNED
[2022-10-06 15:40] LABS: Pathologist Review Reviewed
== END | disposition home or self-care (01) ==
LOC: LAB 09:00
PROVIDERS: PCP Family Medicine
DX: D46.9 Myelodysplastic syndrome, unspecified (principal)
CPT/HCPCS: 36415; 80053; 85025

== ENCOUNTER 2022-10-06 08:54 | Outpatient (CLI) | payer MEDICARE, SELFPAY ==
[2022-10-06 09:35] VITALS: BP 135/81; PULSE 79; RESP 16; TEMP 36.2; O2SAT 100; BMI 25.0
[2022-10-06 09:49] VITALS: BP 125/80; PULSE 74; RESP 16; TEMP 35.9; O2SAT 100
[2022-10-06 10:49] VITALS: BP 138/89; PULSE 71; RESP 16; TEMP 36.1
[2022-10-06 11:16] VITALS: BP 142/88; PULSE 75; RESP 16; TEMP 36; O2SAT 97
[2022-10-06 11:38] VITALS: BP 142/78; PULSE 72; RESP 16; TEMP 35.7; O2SAT 100
[2022-10-06 12:38] VITALS: BP 135/75; PULSE 75; RESP 16; TEMP 35.9; O2SAT 100
== END 2022-10-06 08:55 | disposition home or self-care (01) ==
LOC: MEDOUTP 08:54
PROVIDERS: PCP Family Medicine; Referring Provider Internal Medicine Hematology; Visit Provider Internal Medicine Hematology
DX: D64.9 Anemia, unspecified (principal)
CPT/HCPCS: 36430; 86644; 86850; 86900; 86901; 86920; 86922; 86965; J7040; P9035; P9040; A4216

== ENCOUNTER → 2022-10-08 | Outpatient (CLI) | payer MEDICARE, SELFPAY ==
[2022-10-08 11:51] LABS: Absolute Lymphocyte Count 0.62 X10^3/uL (0.83-4.51); Hemoglobin 9.2 g/dL (13.0-16.5); Lymphocyte # 0.62 X10^3/ul (0.83-4.51); Lymphocyte % 82.7 % (19-41); Mean Corp Hgb Conc 32.9 g/dL (32-36); Mean Corpuscular Hgb 29.8 pg (27.0-32.0); Mean Corpuscular Volume 90.6 fL (80-94); Mean Platelet Vol. 9.6 fl (6.2-12.0); Monocyte# 0.09 X10^3/uL; NRBC Flagged by Analyzer 0 % (0-5); Neutrophil # 0.04 X10^3/uL (2.7-7.7); Neutrophil % 5.3 % (47-70); POSITIVE COUNT YES; POSITIVE DIFFERENTIAL YES; POSITIVE MORPHOLOGY YES; Platelet Count 31 K/mm3 (150-450); RBC Distribution Width CV 16.1 % (11.6-14.6); RBC Distribution Width SD 51.1 fl (35.1-43.9); Red Blood Count 3.09 M/mm3 (4.6-6.2); White Blood Count 0.8 K/mm3 (4.4-11.0)
[2022-10-08 11:56] LABS: Differential Indicated SCAN CRITERIA MET
[2022-10-08 12:16] LABS: Anisocytosis 2+
[2022-10-08 12:30] LABS: ALB/GLOB Ratio 0.5 RATIO (0.9-2.4); AST(SGOT) 14 U/L (15-37); Alanine Aminotransfer ALT/SGPT 18 U/L (16-61); Albumin, Serum 2.6 g/dL (3.2-5.0); Alkaline Phosphatase 106 U/L (45-117); Anion Gap 7 (5-15); BUN 10 mg/dL (7-18); BUN/Creat Ratio 14.3 RATIO (10-20); Calcium,Total 9.4 mg/dL (8.5-10.1); Chloride 103 mmol/L (98-107); EST Glomerular Filtration Rate 120 mL/min (>60); Est Glom Filt Rate - Afr Amer 145 mL/min (>60); Globulin 5.5 g/dL (2.2-4.2); Glucose 193 mg/dL (74-106); Potassium 3.6 mmol/L (3.5-5.1); Protein, Total 8.1 g/dL (6.4-8.2); Sodium Level 135 mmol/L (136-145)
[2022-10-09 12:12] LABS: Pathologist Review Reviewed
== END | disposition home or self-care (01) ==
LOC: LAB 09:50
PROVIDERS: PCP Family Medicine; Referring Provider Internal Medicine Hematology; Visit Provider Internal Medicine Hematology
DX: D46.9 Myelodysplastic syndrome, unspecified (principal); Z71.89 Other specified counseling
CPT/HCPCS: 36415; 80053; 85025

== ENCOUNTER → 2022-10-12 | Outpatient (CLI) | payer MEDICARE, SELFPAY ==
[2022-10-12 10:33] LABS: Absolute Lymphocyte Count 0.58 X10^3/uL (0.83-4.51); Hematocrit 23.2 % (40-54); Lymphocyte # 0.58 X10^3/ul (0.83-4.51); Lymphocyte % 81.7 % (19-41); Mean Corp Hgb Conc 34.5 g/dL (32-36); Mean Corpuscular Hgb 30.3 pg (27.0-32.0); Mean Corpuscular Volume 87.9 fL (80-94); Mean Platelet Vol. 9.5 fl (6.2-12.0); Monocyte% 14.1 % (0-10); NRBC Flagged by Analyzer 0 % (0-5); Neutrophil # 0.02 X10^3/uL (2.7-7.7); Neutrophil % 2.8 % (47-70); POSITIVE COUNT YES; POSITIVE DIFFERENTIAL YES; POSITIVE MORPHOLOGY YES; Platelet Count 14 K/mm3 (150-450); RBC Distribution Width CV 15.5 % (11.6-14.6); RBC Distribution Width SD 46.8 fl (35.1-43.9); Red Blood Count 2.64 M/mm3 (4.6-6.2); White Blood Count 0.7 K/mm3 (4.4-11.0)
[2022-10-12 10:35] LABS: Differential Indicated SCAN CRITERIA MET
[2022-10-12 10:46] LABS: ALB/GLOB Ratio 0.5 RATIO (0.9-2.4); AST(SGOT) 14 U/L (15-37); Alanine Aminotransfer ALT/SGPT 17 U/L (16-61); Albumin, Serum 2.4 g/dL (3.2-5.0); Alkaline Phosphatase 97 U/L (45-117); Anion Gap 6 (5-15); BUN 10 mg/dL (7-18); BUN/Creat Ratio 17.8 RATIO (10-20); Calcium,Total 8.6 mg/dL (8.5-10.1); Chloride 105 mmol/L (98-107); Creatinine, Serum 0.56 mg/dL (0.70-1.30); EST Glomerular Filtration Rate 155 mL/min (>60); Est Glom Filt Rate - Afr Amer 188 mL/min (>60); Globulin 5.1 g/dL (2.2-4.2); Glucose 158 mg/dL (74-106); Potassium 3.9 mmol/L (3.5-5.1); Protein, Total 7.5 g/dL (6.4-8.2); Sodium Level 136 mmol/L (136-145)
[2022-10-14 13:17] LABS: Pathologist Review Reviewed
== END | disposition home or self-care (01) ==
LOC: LAB 09:24
PROVIDERS: PCP Family Medicine
DX: D46.9 Myelodysplastic syndrome, unspecified (principal); Z71.89 Other specified counseling
CPT/HCPCS: 36415; 80053; 85025; 86900; 86901

== ENCOUNTER 2022-10-13 10:29 | Outpatient (CLI) | payer MEDICARE, SELFPAY ==
[2022-10-13 11:10] VITALS: BP 127/80; PULSE 85; RESP 16; TEMP 35.7; O2SAT 97; BMI 25.0
[2022-10-13 11:30] VITALS: BP 122/79; PULSE 78; RESP 16; TEMP 36.6
[2022-10-13 12:18] VITALS: BP 112/74; PULSE 77; RESP 16; TEMP 36.3; O2SAT 97
== END 2022-10-13 10:30 | disposition home or self-care (01) ==
LOC: MEDOUTP 10:29
PROVIDERS: PCP Family Medicine; Referring Provider Internal Medicine Hematology; Visit Provider Internal Medicine Hematology
DX: D46.9 Myelodysplastic syndrome, unspecified (principal)
CPT/HCPCS: 36430; 86900; 86901; 86965; J7040; P9035; A4216

== ENCOUNTER → 2022-10-15 | Outpatient (CLI) | payer MEDICARE, SELFPAY ==
[2022-10-15 11:08] LABS: Absolute Lymphocyte Count 0.64 X10^3/uL (0.83-4.51); Hematocrit 22.5 % (40-54); Hemoglobin 7.3 g/dL (13.0-16.5); Lymphocyte # 0.64 X10^3/ul (0.83-4.51); Lymphocyte % 84.2 % (19-41); Mean Corp Hgb Conc 32.4 g/dL (32-36); Mean Corpuscular Hgb 29.8 pg (27.0-32.0); Mean Corpuscular Volume 91.8 fL (80-94); Mean Platelet Vol. 10.6 fl (6.2-12.0); Monocyte# 0.09 X10^3/uL; Monocyte% 11.8 % (0-10); NRBC Flagged by Analyzer 0 % (0-5); Neutrophil # 0.03 X10^3/uL (2.7-7.7); POSITIVE COUNT YES; POSITIVE DIFFERENTIAL YES; POSITIVE MORPHOLOGY YES; RBC Distribution Width CV 15.3 % (11.6-14.6); RBC Distribution Width SD 47.8 fl (35.1-43.9); Red Blood Count 2.45 M/mm3 (4.6-6.2)
[2022-10-15 11:19] LABS: Differential Indicated SCAN CRITERIA MET; Platelet Count 14 K/mm3 (150-450); White Blood Count 0.8 K/mm3 (4.4-11.0)
[2022-10-15 11:23] LABS: ALB/GLOB Ratio 0.4 RATIO (0.9-2.4); AST(SGOT) 13 U/L (15-37); Alanine Aminotransfer ALT/SGPT 19 U/L (16-61); Albumin, Serum 2.3 g/dL (3.2-5.0); Alkaline Phosphatase 86 U/L (45-117); Anion Gap 6 (5-15); BUN 12 mg/dL (7-18); BUN/Creat Ratio 19.5 RATIO (10-20); Calcium,Total 8.8 mg/dL (8.5-10.1); Chloride 106 mmol/L (98-107); Creatinine, Serum 0.62 mg/dL (0.70-1.30); EST Glomerular Filtration Rate 139 mL/min (>60); Est Glom Filt Rate - Afr Amer 169 mL/min (>60); Globulin 5.2 g/dL (2.2-4.2); Glucose 207 mg/dL (74-106); Potassium 3.6 mmol/L (3.5-5.1); Protein, Total 7.5 g/dL (6.4-8.2); Sodium Level 138 mmol/L (136-145)
[2022-10-15 11:25] LABS: Platelet Estimate MKD DEC (ADEQ)
[2022-10-16 14:19] LABS: Pathologist Review Reviewed
== END | disposition home or self-care (01) ==
PROVIDERS: PCP Family Medicine
DX: D46.9 Myelodysplastic syndrome, unspecified (principal); Z71.89 Other specified counseling
CPT/HCPCS: 36415; 80053; 85025; 86850; 86900; 86901; 86920; 86922

== ENCOUNTER 2022-10-16 08:55 | Outpatient (CLI) | payer MEDICARE, SELFPAY ==
[2022-10-16] VITALS (7 sets, daily range): BP systolic 105–125; BP diastolic 65–76; PULSE 68–84; RESP 16; TEMP 36.2–36.5; O2SAT 98–100; BMI 25.8
== END 2022-10-16 08:56 | disposition home or self-care (01) ==
LOC: MEDOUTP 08:56
PROVIDERS: PCP Family Medicine; Referring Provider Internal Medicine Hematology; Visit Provider Internal Medicine Hematology
DX: D46.9 Myelodysplastic syndrome, unspecified (principal)
CPT/HCPCS: 36430; 86850; 86900; 86901; 86920; 86922; 86965; J7040; P9035; P9040; A4216

== ENCOUNTER → 2022-10-16 | Outpatient (CLI) | payer MEDICARE, SELFPAY ==
--- NOTE | 2022-10-16 13:07 | VDLE_ITS ---
Reason For Study: LLE PAIN Procedure LEFT This is a venous duplex using B-mode, color GSV is normal. flow and spectral Doppler. CFV is compressible, spontaneous, phasic, Exam performed in department. competent, and demonstrates normal The study was technically difficult. augmentation. Exam performed in wheelchair. PT weak from FV is compressible, spontaneous, phasic, infusion today. competent and demonstrates normal A preliminary report was called and/or faxed augmentation. to Elliot Waddell. POP V is compressible, spontaneous, phasic, competent and demonstrates normal augmentation. T/P Trunk is compressible. PTV is compressible. LT PerV is compressible. NONVASCULAR HYPERECHOIC STRUCTURE MEASURING 0.53 X 1.05 CM, LOCATED ON LT LATERAL MID CALF. HARD LUMP VISIBLY SEEN AND FELT. VL/Venous Duplex US, Unilateral Interpretation Summary There is no evidence of left lower extremity deep vein thrombosis. Left great s aphenous vein appears patent and compressible segmentally. Left lateral mid calf subcutaneous 0.53 x 1.05 cm nonvascular structure. Undetermined etiology. This examination was noted to be technically difficult as the examination had t o be performed while the patient is in a wheelchair. Ordering Physician: ELLIOT WADDELL Referring Physician: sweetie Leija Performed By: Oma Reyna RDCS, RVT
== END | disposition home or self-care (01) ==
LOC: CVS 13:03
PROVIDERS: PCP Family Medicine
DX: D46.9 Myelodysplastic syndrome, unspecified (principal); M79.662 Pain in left lower leg
CPT/HCPCS: 36430; 86850; 86900; 86901; 86920; 86922; 86965; 93971; J7040; P9035; P9040; A4216

== ENCOUNTER → 2022-10-19 | Outpatient (CLI) | payer SELFPAY ==
[2022-10-19 10:37] LABS: Hematocrit 25.3 % (40-54); Hemoglobin 8.5 g/dL (13.0-16.5); Lymphocyte % 80.6 % (19-41); Mean Corp Hgb Conc 33.6 g/dL (32-36); Mean Corpuscular Hgb 29.6 pg (27.0-32.0); Mean Corpuscular Volume 88.2 fL (80-94); Mean Platelet Vol. 9.3 fl (6.2-12.0); Monocyte% 16.1 % (0-10); NRBC Flagged by Analyzer 0 % (0-5); Neutrophil # 0.01 X10^3/uL (2.7-7.7); Neutrophil % 1.7 % (47-70); POSITIVE COUNT YES; POSITIVE DIFFERENTIAL YES; POSITIVE MORPHOLOGY YES; Platelet Count 15 K/mm3 (150-450); RBC Distribution Width CV 15.8 % (11.6-14.6); Red Blood Count 2.87 M/mm3 (4.6-6.2); White Blood Count 0.6 K/mm3 (4.4-11.0)
[2022-10-19 10:38] LABS: Differential Indicated SCAN CRITERIA MET
[2022-10-19 10:49] LABS: ERROR FUNCTION FLAG YES; ERROR RESULT FLAG YES
[2022-10-19 11:01] LABS: ALB/GLOB Ratio 0.4 RATIO (0.9-2.4); AST(SGOT) 16 U/L (15-37); Alanine Aminotransfer ALT/SGPT 21 U/L (16-61); Albumin, Serum 2.2 g/dL (3.2-5.0); Alkaline Phosphatase 88 U/L (45-117); Anion Gap 6 (5-15); BUN 10 mg/dL (7-18); BUN/Creat Ratio 18.6 RATIO (10-20); Calcium,Total 8.9 mg/dL (8.5-10.1); Chloride 102 mmol/L (98-107); Creatinine, Serum 0.54 mg/dL (0.70-1.30); EST Glomerular Filtration Rate 163 mL/min (>60); Est Glom Filt Rate - Afr Amer 197 mL/min (>60); Globulin 5.5 g/dL (2.2-4.2); Glucose 144 mg/dL (74-106); Potassium 3.7 mmol/L (3.5-5.1); Protein, Total 7.7 g/dL (6.4-8.2); Sodium Level 136 mmol/L (136-145)
[2022-10-20 13:17] LABS: Pathologist Review Reviewed
== END | disposition home or self-care (01) ==
PROVIDERS: Family Medicine; PCP Family Medicine; Referring Provider Internal Medicine Hematology; Visit Provider Internal Medicine Hematology
DX: D46.9 Myelodysplastic syndrome, unspecified (principal); Z71.89 Other specified counseling
CPT/HCPCS: 36415; 80053; 85025

== ENCOUNTER 2022-10-20 09:15 | Outpatient (CLI) | payer SELFPAY ==
[2022-10-20 09:35] VITALS: BP 121/83; PULSE 83; RESP 16; TEMP 36.2; O2SAT 96; BMI 19.8
[2022-10-20 10:02] VITALS: BP 117/73; PULSE 76; RESP 16; TEMP 36.3; O2SAT 99
[2022-10-20 10:23] VITALS: BP 118/82; PULSE 76; RESP 16; TEMP 36.3; O2SAT 100
== END 2022-10-20 09:16 | disposition home or self-care (01) ==
LOC: MEDOUTP 09:15
PROVIDERS: PCP Family Medicine; Referring Provider Internal Medicine Hematology; Visit Provider Internal Medicine Hematology
DX: D46.9 Myelodysplastic syndrome, unspecified (principal)
CPT/HCPCS: 36430; 86900; 86901; 86965; P9037; A4216

== ENCOUNTER → 2022-10-22 | Outpatient (CLI) | payer SELFPAY ==
[2022-10-22 11:01] LABS: Absolute Lymphocyte Count 0.43 X10^3/uL (0.83-4.51); Hematocrit 23.4 % (40-54); Hemoglobin 7.8 g/dL (13.0-16.5); Lymphocyte # 0.43 X10^3/ul (0.83-4.51); Lymphocyte % 79.6 % (19-41); Mean Corp Hgb Conc 33.3 g/dL (32-36); Mean Corpuscular Hgb 29.8 pg (27.0-32.0); Mean Corpuscular Volume 89.3 fL (80-94); Mean Platelet Vol. 9.3 fl (6.2-12.0); Monocyte# 0.08 X10^3/uL; Monocyte% 14.8 % (0-10); NRBC Flagged by Analyzer 0 % (0-5); Neutrophil # 0.03 X10^3/uL (2.7-7.7); Neutrophil % 5.6 % (47-70); POSITIVE COUNT YES; POSITIVE DIFFERENTIAL YES; POSITIVE MORPHOLOGY YES; Platelet Count 18 K/mm3 (150-450); RBC Distribution Width CV 15.4 % (11.6-14.6); RBC Distribution Width SD 47.7 fl (35.1-43.9); Red Blood Count 2.62 M/mm3 (4.6-6.2); White Blood Count 0.5 K/mm3 (4.4-11.0)
[2022-10-22 11:07] LABS: Differential Indicated SCAN CRITERIA MET
[2022-10-22 11:24] LABS: Anisocytosis 1+; Hypochromasia 2+; Platelet Estimate MKD DEC (ADEQ)
[2022-10-22 11:46] LABS: ALB/GLOB Ratio 0.4 RATIO (0.9-2.4); AST(SGOT) 15 U/L (15-37); Alanine Aminotransfer ALT/SGPT 17 U/L (16-61); Albumin, Serum 2.3 g/dL (3.2-5.0); Alkaline Phosphatase 87 U/L (45-117); Anion Gap 6 (5-15); BUN 10 mg/dL (7-18); BUN/Creat Ratio 17.6 RATIO (10-20); Calcium,Total 8.9 mg/dL (8.5-10.1); Chloride 104 mmol/L (98-107); Creatinine, Serum 0.57 mg/dL (0.70-1.30); EST Glomerular Filtration Rate 153 mL/min (>60); Est Glom Filt Rate - Afr Amer 185 mL/min (>60); Globulin 5.4 g/dL (2.2-4.2); Glucose 164 mg/dL (74-106); Potassium 3.8 mmol/L (3.5-5.1); Protein, Total 7.7 g/dL (6.4-8.2); Sodium Level 136 mmol/L (136-145)
[2022-10-22 14:41] LABS: Pathologist Review Reviewed
== END | disposition home or self-care (01) ==
LOC: LAB 08:17
PROVIDERS: PCP Family Medicine; Referring Provider Internal Medicine Hematology; Visit Provider Internal Medicine Hematology
DX: D46.9 Myelodysplastic syndrome, unspecified (principal); Z71.89 Other specified counseling
CPT/HCPCS: 36415; 80053; 85025

== ENCOUNTER 2022-10-23 09:03 | Outpatient (CLI) | payer SELFPAY ==
[2022-10-23 09:15] VITALS: BP 117/75; PULSE 88; RESP 16; TEMP 36.4; O2SAT 97; BMI 25.0
[2022-10-23 09:48] VITALS: BP 109/71; PULSE 80; RESP 16; TEMP 36.3; O2SAT 99
[2022-10-23 10:48] VITALS: BP 133/67; PULSE 74; RESP 16; TEMP 36.3; O2SAT 100
[2022-10-23 11:50] VITALS: BP 122/74; PULSE 73; RESP 16; TEMP 36.1; O2SAT 100
[2022-10-23 12:32] VITALS: BP 126/72; PULSE 74; RESP 16; TEMP 36.2; O2SAT 100
[2022-10-23 12:55] VITALS: BP 124/71; PULSE 72; RESP 16; TEMP 36.1; O2SAT 99
== END 2022-10-23 09:04 | disposition home or self-care (01) ==
LOC: MEDOUTP 09:03
PROVIDERS: PCP Family Medicine; Referring Provider Internal Medicine Hematology; Visit Provider Internal Medicine Hematology
DX: D46.9 Myelodysplastic syndrome, unspecified (principal)
CPT/HCPCS: 36430; 86644; 86850; 86900; 86901; 86920; 86922; 86965; J7040; P9035; P9040; A4216

== ENCOUNTER → 2022-10-26 | Outpatient (CLI) | payer SELFPAY ==
[2022-10-26 11:00] LABS: Hematocrit 26.4 % (40-54); Hemoglobin 8.6 g/dL (13.0-16.5); Lymphocyte % 82.2 % (19-41); Mean Corp Hgb Conc 32.6 g/dL (32-36); Mean Corpuscular Hgb 29.2 pg (27.0-32.0); Mean Corpuscular Volume 89.5 fL (80-94); Mean Platelet Vol. 10.1 fl (6.2-12.0); Monocyte# 0.11 X10^3/uL; Monocyte% 15.1 % (0-10); NRBC Flagged by Analyzer 0 % (0-5); Neutrophil # 0.02 X10^3/uL (2.7-7.7); Neutrophil % 2.7 % (47-70); POSITIVE COUNT YES; POSITIVE DIFFERENTIAL YES; POSITIVE MORPHOLOGY YES; RBC Distribution Width SD 47.4 fl (35.1-43.9); Red Blood Count 2.95 M/mm3 (4.6-6.2)
[2022-10-26 11:14] LABS: ALB/GLOB Ratio 0.4 RATIO (0.9-2.4); AST(SGOT) 16 U/L (15-37); Alanine Aminotransfer ALT/SGPT 16 U/L (16-61); Albumin, Serum 2.2 g/dL (3.2-5.0); Alkaline Phosphatase 86 U/L (45-117); Anion Gap 7 (5-15); BUN 11 mg/dL (7-18); BUN/Creat Ratio 24.6 RATIO (10-20); Calcium,Total 8.8 mg/dL (8.5-10.1); Chloride 104 mmol/L (98-107); Creatinine, Serum 0.45 mg/dL (0.70-1.30); EST Glomerular Filtration Rate 201 mL/min (>60); Est Glom Filt Rate - Afr Amer 243 mL/min (>60); Globulin 5.4 g/dL (2.2-4.2); Glucose 122 mg/dL (74-106); Potassium 3.8 mmol/L (3.5-5.1); Protein, Total 7.6 g/dL (6.4-8.2); Sodium Level 136 mmol/L (136-145)
[2022-10-26 11:57] LABS: Differential Indicated SCAN CRITERIA MET; Platelet Count 17 K/mm3 (150-450); White Blood Count 0.7 K/mm3 (4.4-11.0)
[2022-10-26 12:16] LABS: Platelet Estimate MKD DEC (ADEQ)
[2022-10-28 07:59] LABS: Pathologist Review Reviewed
== END | disposition home or self-care (01) ==
LOC: LAB 09:30
PROVIDERS: PCP Family Medicine; Referring Provider Internal Medicine Hematology; Visit Provider Internal Medicine Hematology
DX: D46.9 Myelodysplastic syndrome, unspecified (principal); Z71.89 Other specified counseling
CPT/HCPCS: 36415; 80053; 85025; 86900; 86901

== ENCOUNTER 2022-10-27 13:00 | Outpatient (CLI) | payer SELFPAY ==
[2022-10-27 13:20] VITALS: BP 122/79; PULSE 90; RESP 16; TEMP 36.6; O2SAT 98; BMI 24.7
[2022-10-27 14:20] VITALS: BP 150/89; PULSE 88; RESP 16; TEMP 36.4
[2022-10-27 14:51] VITALS: BP 141/85; PULSE 83; RESP 16; TEMP 36.6; O2SAT 99
== END 2022-10-27 13:01 | disposition home or self-care (01) ==
LOC: MEDOUTP 13:00
PROVIDERS: PCP Family Medicine; Referring Provider Internal Medicine Hematology; Visit Provider Internal Medicine Hematology
DX: D46.9 Myelodysplastic syndrome, unspecified (principal)
CPT/HCPCS: 36430; 86900; 86901; 86965; J7040; P9035; A4216

== ENCOUNTER → 2022-10-29 | Outpatient (CLI) | payer SELFPAY ==
[2022-10-29 11:54] LABS: Absolute Lymphocyte Count 0.54 X10^3/uL (0.83-4.51); Hematocrit 24.3 % (40-54); Lymphocyte # 0.54 X10^3/ul (0.83-4.51); Lymphocyte % 79.4 % (19-41); Mean Corp Hgb Conc 32.9 g/dL (32-36); Mean Corpuscular Hgb 29.5 pg (27.0-32.0); Mean Corpuscular Volume 89.7 fL (80-94); Mean Platelet Vol. 11.1 fl (6.2-12.0); Monocyte# 0.11 X10^3/uL; Monocyte% 16.2 % (0-10); NRBC Flagged by Analyzer 0 % (0-5); Neutrophil # 0.03 X10^3/uL (2.7-7.7); Neutrophil % 4.4 % (47-70); POSITIVE COUNT YES; POSITIVE DIFFERENTIAL YES; POSITIVE MORPHOLOGY YES; RBC Distribution Width CV 14.8 % (11.6-14.6); RBC Distribution Width SD 46.5 fl (35.1-43.9); Red Blood Count 2.71 M/mm3 (4.6-6.2)
[2022-10-29 12:06] LABS: ALB/GLOB Ratio 0.4 RATIO (0.9-2.4); AST(SGOT) 11 U/L (15-37); Alanine Aminotransfer ALT/SGPT 14 U/L (16-61); Albumin, Serum 2.2 g/dL (3.2-5.0); Alkaline Phosphatase 79 U/L (45-117); Anion Gap 7 (5-15); BUN 9 mg/dL (7-18); Calcium,Total 8.6 mg/dL (8.5-10.1); Chloride 104 mmol/L (98-107); Creatinine, Serum 0.45 mg/dL (0.70-1.30); EST Glomerular Filtration Rate 200 mL/min (>60); Est Glom Filt Rate - Afr Amer 241 mL/min (>60); Glucose 136 mg/dL (74-106); Potassium 3.7 mmol/L (3.5-5.1); Protein, Total 7.2 g/dL (6.4-8.2); Sodium Level 136 mmol/L (136-145)
[2022-10-29 12:47] LABS: Platelet Count 22 K/mm3 (150-450); White Blood Count 0.7 K/mm3 (4.4-11.0)
[2022-10-29 12:48] LABS: Differential Indicated SCAN CRITERIA MET
[2022-10-29 13:10] LABS: Platelet Estimate MKD DEC (ADEQ)
[2022-11-02 09:21] LABS: Pathologist Review Reviewed
== END | disposition home or self-care (01) ==
LOC: LAB 08:21
PROVIDERS: PCP Family Medicine; Referring Provider Internal Medicine Hematology; Visit Provider Internal Medicine Hematology
DX: D46.9 Myelodysplastic syndrome, unspecified (principal); Z71.89 Other specified counseling
CPT/HCPCS: 36415; 80053; 85025

== ENCOUNTER → 2022-11-02 | Outpatient (CLI) | payer SELFPAY ==
[2022-11-02 11:51] LABS: Absolute Lymphocyte Count 0.54 X10^3/uL (0.83-4.51); Hematocrit 20.9 % (40-54); Hemoglobin 6.9 g/dL (13.0-16.5); Lymphocyte # 0.54 X10^3/ul (0.83-4.51); Lymphocyte % 79.4 % (19-41); Mean Corpuscular Hgb 29.9 pg (27.0-32.0); Mean Corpuscular Volume 90.5 fL (80-94); Mean Platelet Vol. 12.6 fl (6.2-12.0); Monocyte# 0.11 X10^3/uL; Monocyte% 16.2 % (0-10); NRBC Flagged by Analyzer 0 % (0-5); Neutrophil # 0.03 X10^3/uL (2.7-7.7); Neutrophil % 4.4 % (47-70); POSITIVE COUNT YES; POSITIVE DIFFERENTIAL YES; POSITIVE MORPHOLOGY YES; Platelet Count 7 K/mm3 (150-450); RBC Distribution Width CV 14.5 % (11.6-14.6); RBC Distribution Width SD 46.3 fl (35.1-43.9); Red Blood Count 2.31 M/mm3 (4.6-6.2); White Blood Count 0.7 K/mm3 (4.4-11.0)
[2022-11-02 11:57] LABS: ALB/GLOB Ratio 0.4 RATIO (0.9-2.4); AST(SGOT) 16 U/L (15-37); Alanine Aminotransfer ALT/SGPT 13 U/L (16-61); Albumin, Serum 2.1 g/dL (3.2-5.0); Alkaline Phosphatase 83 U/L (45-117); Anion Gap 3 (5-15); BUN 9 mg/dL (7-18); BUN/Creat Ratio 19.7 RATIO (10-20); Calcium,Total 8.6 mg/dL (8.5-10.1); Chloride 106 mmol/L (98-107); Creatinine, Serum 0.46 mg/dL (0.70-1.30); EST Glomerular Filtration Rate 197 mL/min (>60); Est Glom Filt Rate - Afr Amer 238 mL/min (>60); Globulin 5.1 g/dL (2.2-4.2); Glucose 121 mg/dL (74-106); Potassium 3.7 mmol/L (3.5-5.1); Protein, Total 7.2 g/dL (6.4-8.2); Sodium Level 136 mmol/L (136-145)
[2022-11-02 11:59] LABS: Differential Indicated SCAN CRITERIA MET
[2022-11-02 12:21] LABS: Anisocytosis 2+; Hypochromasia 1+
[2022-11-03 12:37] LABS: Pathologist Review Reviewed
== END | disposition home or self-care (01) ==
LOC: LAB 09:51
PROVIDERS: PCP Family Medicine; Referring Provider Internal Medicine Hematology; Visit Provider Internal Medicine Hematology
DX: D46.9 Myelodysplastic syndrome, unspecified (principal); Z71.89 Other specified counseling
CPT/HCPCS: 36415; 80053; 85025; 86850; 86900; 86901; 86920; 86922

== ENCOUNTER 2022-11-04 09:02 | Outpatient (CLI) | payer SELFPAY ==
[2022-11-04 09:12] VITALS: BP 100/73; PULSE 85; RESP 16; TEMP 36.4; O2SAT 96
[2022-11-04 09:51] VITALS: BP 94/61; PULSE 72; RESP 16; TEMP 36.7
[2022-11-04 10:51] VITALS: BP 114/74; PULSE 72; RESP 16; TEMP 36.3; O2SAT 95
[2022-11-04 11:25] VITALS: BP 110/72; PULSE 70; RESP 16; TEMP 36.3; O2SAT 96
[2022-11-04 12:07] VITALS: BP 114/77; PULSE 73; RESP 16; TEMP 36.1
== END 2022-11-04 09:03 | disposition home or self-care (01) ==
LOC: MEDOUTP 09:02
PROVIDERS: PCP Family Medicine
DX: D46.9 Myelodysplastic syndrome, unspecified (principal)
CPT/HCPCS: 36430; 86644; 86850; 86900; 86901; 86920; 86922; 86965; P9037; P9040

== ENCOUNTER 2022-11-06 13:09 | Outpatient (CLI) | payer SELFPAY ==
[2022-11-06 13:38] VITALS: BP 114/76; PULSE 96; RESP 16; TEMP 36.4; O2SAT 96; BMI 22.8
[2022-11-06 14:03] VITALS: BP 125/79; RESP 16; TEMP 36.6
[2022-11-06 15:03] VITALS: BP 116/71; PULSE 90; RESP 16; TEMP 36.7
[2022-11-06 15:50] VITALS: BP 120/73; PULSE 86; RESP 16; TEMP 36.4; O2SAT 98
[2022-11-06 15:53] VITALS: BP 120/73; PULSE 86; RESP 16; TEMP 36.4; O2SAT 98
== END 2022-11-06 13:10 | disposition home or self-care (01) ==
LOC: MEDOUTP 13:09
PROVIDERS: PCP Family Medicine
DX: D46.9 Myelodysplastic syndrome, unspecified (principal)
CPT/HCPCS: 36430; 86850; 86900; 86901; 86920; 86922; J7040; P9040; A4216

== ENCOUNTER → 2022-11-06 | Outpatient (CLI) | payer SELFPAY ==
[2022-11-06 08:38] LABS: Absolute Lymphocyte Count 0.75 X10^3/uL (0.83-4.51); Hematocrit 21.9 % (40-54); Hemoglobin 7.5 g/dL (13.0-16.5); Lymphocyte # 0.75 X10^3/ul (0.83-4.51); Lymphocyte % 83.3 % (19-41); Mean Corp Hgb Conc 34.2 g/dL (32-36); Mean Corpuscular Hgb 30.5 pg (27.0-32.0); Mean Platelet Vol. 9.3 fl (6.2-12.0); Monocyte# 0.13 X10^3/uL; Monocyte% 14.4 % (0-10); NRBC Flagged by Analyzer 0 % (0-5); Neutrophil # 0.01 X10^3/uL (2.7-7.7); Neutrophil % 1.2 % (47-70); POSITIVE COUNT YES; POSITIVE DIFFERENTIAL YES; POSITIVE MORPHOLOGY YES; Platelet Count 26 K/mm3 (150-450); RBC Distribution Width CV 14.6 % (11.6-14.6); RBC Distribution Width SD 46.1 fl (35.1-43.9); Red Blood Count 2.46 M/mm3 (4.6-6.2); White Blood Count 0.9 K/mm3 (4.4-11.0)
[2022-11-06 08:40] LABS: Differential Indicated SCAN CRITERIA MET
[2022-11-10 09:01] LABS: Pathologist Review Reviewed
== END | disposition home or self-care (01) ==
PROVIDERS: PCP Family Medicine
DX: D46.9 Myelodysplastic syndrome, unspecified (principal)
CPT/HCPCS: 36415; 85025; 86850; 86900; 86901

== ENCOUNTER → 2022-11-09 | Outpatient (CLI) | payer SELFPAY ==
[2022-11-09 13:10] LABS: Hematocrit 24.7 % (40-54); Mean Corp Hgb Conc 32.4 g/dL (32-36); Mean Corpuscular Hgb 29.2 pg (27.0-32.0); Mean Corpuscular Volume 90.1 fL (80-94); Mean Platelet Vol. 8.2 fl (6.2-12.0); POSITIVE COUNT YES; RBC Distribution Width CV 14.1 % (11.6-14.6); RBC Distribution Width SD 45.5 fl (35.1-43.9); Red Blood Count 2.74 M/mm3 (4.6-6.2)
[2022-11-09 13:31] LABS: White Blood Count 0.6 K/mm3 (4.4-11.0)
[2022-11-09 13:32] LABS: Platelet Count 9 K/mm3 (150-450); Scan Indicated on CBC? Y/N YES- FLAGS NOTED
[2022-11-11 13:07] LABS: Pathologist Review Reviewed
== END | disposition home or self-care (01) ==
LOC: LAB 11:12
PROVIDERS: PCP Family Medicine
DX: D46.9 Myelodysplastic syndrome, unspecified (principal)
CPT/HCPCS: 36415; 85027

== ENCOUNTER 2022-11-11 10:16 | Outpatient (CLI) | payer SELFPAY ==
[2022-11-11 10:46] VITALS: BP 108/81; PULSE 95; RESP 16; TEMP 36.9; O2SAT 96
[2022-11-11 11:12] VITALS: BP 106/80; PULSE 85; RESP 16; TEMP 36.6
[2022-11-11 12:18] VITALS: BP 119/78; PULSE 86; RESP 16; TEMP 35.9; O2SAT 94
[2022-11-11 13:18] VITALS: BP 116/87; PULSE 85; RESP 16; TEMP 36.3
[2022-11-11 14:00] VITALS: BP 125/78; PULSE 82; RESP 16; TEMP 36.3
== END 2022-11-11 10:17 | disposition home or self-care (01) ==
LOC: MEDOUTP 10:20
PROVIDERS: PCP Family Medicine; Referring Provider Family Medicine; Visit Provider Family Medicine
DX: D46.9 Myelodysplastic syndrome, unspecified (principal)
CPT/HCPCS: 36430; 86850; 86900; 86901; 86920; 86922; 86965; J7040; P9016; P9035; A4216

== ENCOUNTER → 2022-11-12 | Outpatient (CLI) | payer SELFPAY ==
[2022-11-12 10:51] LABS: Hematocrit 26.6 % (40-54); Hemoglobin 8.6 g/dL (13.0-16.5); Mean Corp Hgb Conc 32.3 g/dL (32-36); Mean Corpuscular Hgb 28.9 pg (27.0-32.0); Mean Corpuscular Volume 89.3 fL (80-94); Mean Platelet Vol. 9.9 fl (6.2-12.0); POSITIVE COUNT YES; Platelet Count 17 K/mm3 (150-450); RBC Distribution Width CV 14.1 % (11.6-14.6); RBC Distribution Width SD 45.4 fl (35.1-43.9); Red Blood Count 2.98 M/mm3 (4.6-6.2)
[2022-11-12 10:59] LABS: Scan Indicated on CBC? Y/N YES- FLAGS NOTED; White Blood Count 0.6 K/mm3 (4.4-11.0)
[2022-11-12 11:32] LABS: Differential Comment SCANNED
[2022-11-13 13:24] LABS: Pathologist Review Reviewed
== END | disposition home or self-care (01) ==
LOC: LAB 09:43
PROVIDERS: PCP Family Medicine
DX: D46.9 Myelodysplastic syndrome, unspecified (principal)
CPT/HCPCS: 36415; 85027; 86900; 86901

== ENCOUNTER 2022-11-13 12:24 | Outpatient (CLI) | payer SELFPAY ==
[2022-11-13] MEDS: 0.9% NaCl Peripheral Flush Adult/Peds IV (12:39)
[2022-11-13] MEDS: 0.9% Normal Saline (500mL Bag) 500 ML 15 ML IV (12:44)
[2022-11-13 12:47] VITALS: BP 104/71; PULSE 96; RESP 16; TEMP 36.2; O2SAT 97; BMI 24.3
[2022-11-13 13:20] VITALS: BP 125/83; PULSE 94; RESP 16; TEMP 36.1; O2SAT 100
[2022-11-13 13:42] VITALS: BP 129/84; PULSE 89; RESP 16; TEMP 36.1; O2SAT 100
== END 2022-11-13 12:25 | disposition home or self-care (01) ==
LOC: MEDOUTP 12:25
PROVIDERS: PCP Family Medicine; Referring Provider Family Medicine; Visit Provider Family Medicine
DX: D46.9 Myelodysplastic syndrome, unspecified (principal)
CPT/HCPCS: 36430; 86900; 86901; 86965; J7040; P9035; A4216

== ENCOUNTER → 2022-11-16 | Outpatient (CLI) | payer SELFPAY ==
[2022-11-16 10:33] LABS: Hematocrit 25.2 % (40-54); Hemoglobin 8.1 g/dL (13.0-16.5); Mean Corp Hgb Conc 32.1 g/dL (32-36); Mean Corpuscular Hgb 29.1 pg (27.0-32.0); Mean Corpuscular Volume 90.6 fL (80-94); POSITIVE COUNT YES; Platelet Count 10 K/mm3 (150-450); RBC Distribution Width CV 13.7 % (11.6-14.6); RBC Distribution Width SD 45.1 fl (35.1-43.9); Red Blood Count 2.78 M/mm3 (4.6-6.2)
[2022-11-16 10:39] LABS: Scan Indicated on CBC? Y/N YES- FLAGS NOTED; White Blood Count 0.7 K/mm3 (4.4-11.0)
[2022-11-16 12:54] LABS: Differential Comment SCANNED
[2022-11-18 09:57] LABS: Pathologist Review Reviewed
== END | disposition home or self-care (01) ==
LOC: LAB 09:27
PROVIDERS: PCP Family Medicine
DX: D46.9 Myelodysplastic syndrome, unspecified (principal)
CPT/HCPCS: 36415; 85027